=== PATIENT | male | born 1945 | race Caucasian/White ===

== ENCOUNTER → 2017-03-23 | Outpatient (REF) | payer MEDICARE ==
[~2017-03-23] MED LIST: ASPI81CH PO; COMBAER6 INH; COUM2.5T11 PO; DELTASONE PO; HCTZ OR; LATA5OPD OU; LISI10TA4 PO; LOSA100T36 PO; LYRI75CA PO; MOM30SS PO; MUCI120T PO; MYCOSTATIN SS; NICO21DI5 TD; NORV5TAB PO; PERC5TAB6 PO; PRAV10TA PO; PRAV1TAB39 PO; PROT1TAB2 PO; SITA50TAB PO; SYMB16INH INH; TIMO0.5S4 OU; TIOT18INH INH; TYLE325T5 PO; TYLE650T30 PO; XALA0.002 OD; XALA0.002 OU; XOPE1.252 IN; oxygen; ventolin inhaler INH
== END ==
LOC: M LAB REF 19:40
PROVIDERS: ATTEND Physician Assistant
DX: J02.9 Acute pharyngitis, unspecified (principal)

== ENCOUNTER 2017-11-20 10:14 | Inpatient (IN) | payer MEDICARE ==
[2017-11-20] MEDS: IPRATROPIUM 0.5MG/ALBUTEROL 2.5MG INH SOL UD 3ML (DUONEB)(J7620) NEB ×6 (10:57→23:29)
[2017-11-20 11:10] LABS: ABG BASE EXCESS 7.5 (-2.0-2.0); ABG HCO3 42.7 MEQ/L (22.0-26.0); ABG O2 SATURATION 95.3 % (95.0-99.0); ABG PARTIAL PRESSURE O2 86.8 mmHg (75.0-100.0); ABG STANDARD HCO3 31.2 MEQ/L (22.0-26.0); ABG TOTAL CO2 46.8 MEQ/L (23.0-31.0); BASO % 0.3 % (0.0-1.0); HEMATOCRIT 50.2 % (42.0-52.0); HEMOGLOBIN 14.6 g/dl (14.0-18.0); IMMATURE GRANULOCYTE # 0.1 10^3/uL (0-0); IMMATURE GRANULOCYTE % 0.5 % (0-0); LYMPH # 0.7 10^3/uL (1.5-4.5); LYMPH % 4.6 % (24.0-44.0); MEAN CORPUSCULAR HEMOGLOBIN 28.6 pg (27.0-33.0); MEAN CORPUSCULAR HGB CONC 29.1 g/dl (32.0-36.5); MEAN CORPUSCULAR VOLUME 98.2 fl (80.0-96.0); MONO # 1.4 10^3/uL (0.0-0.8); MONO % 9.4 % (0.0-5.0); NEUTROPHILS # 12.4 10^3/uL (1.8-7.7); NEUTROPHILS % 85.2 % (36.0-66.0); PLATELET COUNT, AUTOMATED 249 10^3/uL (150-450); RED BLOOD COUNT 5.11 10^6/uL (4.30-6.10); RED CELL DISTRIBUTION WIDTH 14.6 % (11.5-14.5); WHITE BLOOD COUNT 14.5 10^3/uL (4.0-10.0)
[2017-11-20 11:13] LABS: ABG PARTIAL PRESSURE CO2 135.2 mmHg (35.0-45.0); ABG pH (ARTERIAL) 7.117 UNITS (7.350-7.450)
[2017-11-20 11:35] LABS: LACTIC ACID SEPSIS PROTOCOL 1.1 MMOL/L (0.4-2.0)
[2017-11-20 11:36] LABS: NT-PRO BNP 221 PG/ML (<125)
[2017-11-20 11:36] LABS: ANION GAP 5 MEQ/L (8-16); BLOOD UREA NITROGEN 47 MG/DL (7-18); CALCIUM LEVEL 8.4 MG/DL (8.8-10.2); CARBON DIOXIDE LEVEL 40 MEQ/L (21-32); CHLORIDE LEVEL 97 MEQ/L (98-107); CPK CREATINE PHOSPHOKINASE 49 U/L (39-308); CREATININE FOR GFR 1.36 MG/DL (0.70-1.30); GLOMERULAR FILTRATION RATE 54.7 (>42); GLUCOSE, FASTING 150 MG/DL (83-110); POTASSIUM SERUM 3.5 MEQ/L (3.5-5.1); SODIUM LEVEL 142 MEQ/L (136-145); TROPONIN I < 0.02 NG/ML (< 0.10)
[2017-11-20 11:39] LABS: CK-MB VALUE MASS 4.1 NG/ML (0.0-3.6); MB/CK RELATIVE INDEX 8.36 (< OR =4)
[2017-11-20 12:39] LABS: ABG BASE EXCESS 6.2 (-2.0-2.0); ABG O2 SATURATION 93.1 % (95.0-99.0); ABG PARTIAL PRESSURE O2 69.4 mmHg (75.0-100.0); ABG STANDARD HCO3 29.9 MEQ/L (22.0-26.0); ABG TOTAL CO2 42.3 MEQ/L (23.0-31.0)
[2017-11-20 12:42] LABS: ABG pH (ARTERIAL) 7.184 UNITS (7.350-7.450)
[2017-11-20] MEDS: PANTOPRAZOLE 40MG INJ (PROTONIX) (C9113) IV (14:38)
[2017-11-20] MEDS: methylPREDNISolone INJ 125 MG/2 ML VIAL (J2930) IV ×2 (14:38→21:34)
[2017-11-20] MEDS: ENOXAPARIN 40 MG/0.4 ML SYRINGE (J1650) SC (14:39)
[2017-11-20] MEDS: AZITHROMYCIN INJ 500 MG, VIAL MATE ADAPTER 1 EACH in D5W 250 ML IV (14:39)
[2017-11-20 15:59] LABS: ABG BASE EXCESS 6.6 (-2.0-2.0); ABG HCO3 40.5 MEQ/L (22.0-26.0); ABG O2 SATURATION 99.1 % (95.0-99.0); ABG PARTIAL PRESSURE O2 161.9 mmHg (75.0-100.0); ABG STANDARD HCO3 30.5 MEQ/L (22.0-26.0); ABG TOTAL CO2 44.2 MEQ/L (23.0-31.0)
[2017-11-20 16:00] LABS: ABG pH (ARTERIAL) 7.146 UNITS (7.350-7.450)
[2017-11-20] MEDS: CEFTRIAXONE SOD 1 GM in APPROPRIATE DILUENT 1 EA IV (16:39)
[2017-11-20 17:29] LABS: ABG BASE EXCESS 4.4 (-2.0-2.0); ABG HCO3 35.8 MEQ/L (22.0-26.0); ABG O2 SATURATION 89.9 % (95.0-99.0); ABG PARTIAL PRESSURE O2 57.1 mmHg (75.0-100.0); ABG STANDARD HCO3 28.2 MEQ/L (22.0-26.0); ABG TOTAL CO2 38.6 MEQ/L (23.0-31.0)
[2017-11-20 17:30] LABS: ABG pH (ARTERIAL) 7.212 UNITS (7.350-7.450)
[2017-11-20 17:33] LABS: ABG PARTIAL PRESSURE CO2 91.1 mmHg (35.0-45.0)
[2017-11-20] MEDS: SODIUM CHLORIDE 0.9% 1000 ML IV (18:13)
[2017-11-20] MEDS: NS 500 ML IV (21:30)
[2017-11-20] MEDS: D5W/0.9% SODIUM CHLORIDE 1,000 ML IV (21:33)
[2017-11-20] MEDS: CHLORHEXIDINE ORAL RINSE 0.12%/15ML 120ML BOTTLE MT (21:35)
[2017-11-21] MEDS: IPRATROPIUM 0.5MG/ALBUTEROL 2.5MG INH SOL UD 3ML (DUONEB)(J7620) NEB ×6 (04:00→23:18)
[2017-11-21 05:19] LABS: BASO % 0.1 % (0.0-1.0); HEMATOCRIT 44.1 % (42.0-52.0); HEMOGLOBIN 13.5 g/dl (14.0-18.0); IMMATURE GRANULOCYTE % 0.3 % (0-0); LYMPH # 0.4 10^3/uL (1.5-4.5); LYMPH % 3.2 % (24.0-44.0); MEAN CORPUSCULAR HEMOGLOBIN 28.5 pg (27.0-33.0); MEAN CORPUSCULAR HGB CONC 30.6 g/dl (32.0-36.5); MEAN CORPUSCULAR VOLUME 93.2 fl (80.0-96.0); MONO # 0.9 10^3/uL (0.0-0.8); MONO % 7.4 % (0.0-5.0); NEUTROPHILS # 10.5 10^3/uL (1.8-7.7); PLATELET COUNT, AUTOMATED 247 10^3/uL (150-450); RED BLOOD COUNT 4.73 10^6/uL (4.30-6.10); RED CELL DISTRIBUTION WIDTH 14.6 % (11.5-14.5); WHITE BLOOD COUNT 11.8 10^3/uL (4.0-10.0)
[2017-11-21 05:44] LABS: ALBUMIN 2.5 GM/DL (3.2-5.2); ALBUMIN/GLOBULIN RATIO 0.61 (1.00-1.93); ALKALINE PHOSPHATASE 72 U/L (45-117); ALT/SGPT 14 U/L (12-78); ANION GAP 5 MEQ/L (8-16); AST/SGOT 8 U/L (7-37); BILIRUBIN,TOTAL 0.7 MG/DL (0.2-1.0); BLOOD UREA NITROGEN 66 MG/DL (7-18); CALCIUM LEVEL 8.8 MG/DL (8.8-10.2); CARBON DIOXIDE LEVEL 34 MEQ/L (21-32); CHLORIDE LEVEL 99 MEQ/L (98-107); CHOLESTEROL LEVEL 112 MG/DL (< 200); CPK CREATINE PHOSPHOKINASE 52 U/L (39-308); CREATININE FOR GFR 1.72 MG/DL (0.70-1.30); GLOMERULAR FILTRATION RATE 41.7 (>42); GLUCOSE, FASTING 228 MG/DL (83-110); LDH LACTATE DEHYDROGENASE 146 U/L (87-241); MAGNESIUM LEVEL 2.4 MG/DL (1.8-2.4); PHOSPHORUS LEVEL 2.5 MG/DL (2.5-4.9); POTASSIUM SERUM 3.6 MEQ/L (3.5-5.1); SODIUM LEVEL 138 MEQ/L (136-145); TOTAL PROTEIN 6.6 GM/DL (6.4-8.2); TRIGLYCERIDES LEVEL 63 MG/DL (<150)
[2017-11-21 06:07] LABS: ABG BASE EXCESS 4.1 (-2.0-2.0); ABG HCO3 31.1 MEQ/L (22.0-26.0); ABG O2 SATURATION 93.2 % (95.0-99.0); ABG PARTIAL PRESSURE CO2 56.2 mmHg (35.0-45.0); ABG PARTIAL PRESSURE O2 62.3 mmHg (75.0-100.0); ABG TOTAL CO2 32.8 MEQ/L (23.0-31.0); ABG pH (ARTERIAL) 7.361 UNITS (7.350-7.450)
[2017-11-21] MEDS: methylPREDNISolone INJ 125 MG/2 ML VIAL (J2930) IV ×3 (06:24→21:50)
[2017-11-21] MEDS: ENOXAPARIN 40 MG/0.4 ML SYRINGE (J1650) SC (08:11)
[2017-11-21] MEDS: PANTOPRAZOLE 40MG INJ (PROTONIX) (C9113) IV (08:11)
[2017-11-21] MEDS: CHLORHEXIDINE ORAL RINSE 0.12%/15ML 120ML BOTTLE MT ×2 (08:11→20:00)
[2017-11-21] MEDS: CEFTRIAXONE SOD 1 GM in APPROPRIATE DILUENT 1 EA IV (13:07)
[2017-11-21] MEDS: D5W/0.9% SODIUM CHLORIDE 1,000 ML IV (13:08)
[2017-11-21] MEDS: AZITHROMYCIN INJ 500 MG, VIAL MATE ADAPTER 1 EACH in D5W 250 ML IV (16:26)
[2017-11-22] MEDS: IPRATROPIUM 0.5MG/ALBUTEROL 2.5MG INH SOL UD 3ML (DUONEB)(J7620) NEB ×6 (03:52→23:32)
[2017-11-22 05:18] LABS: BASO % 0.1 % (0.0-1.0); HEMATOCRIT 44.9 % (42.0-52.0); HEMOGLOBIN 13.8 g/dl (14.0-18.0); IMMATURE GRANULOCYTE # 0.1 10^3/uL (0-0); IMMATURE GRANULOCYTE % 0.5 % (0-0); LYMPH # 0.5 10^3/uL (1.5-4.5); LYMPH % 3.4 % (24.0-44.0); MEAN CORPUSCULAR HEMOGLOBIN 28.6 pg (27.0-33.0); MEAN CORPUSCULAR HGB CONC 30.7 g/dl (32.0-36.5); MEAN CORPUSCULAR VOLUME 93.2 fl (80.0-96.0); MONO # 0.7 10^3/uL (0.0-0.8); PLATELET COUNT, AUTOMATED 282 10^3/uL (150-450); RED BLOOD COUNT 4.82 10^6/uL (4.30-6.10); RED CELL DISTRIBUTION WIDTH 14.9 % (11.5-14.5); WHITE BLOOD COUNT 14.3 10^3/uL (4.0-10.0)
[2017-11-22 05:36] LABS: ALBUMIN 2.4 GM/DL (3.2-5.2); ALBUMIN/GLOBULIN RATIO 0.57 (1.00-1.93); ALKALINE PHOSPHATASE 86 U/L (45-117); ALT/SGPT 14 U/L (12-78); ANION GAP 4 MEQ/L (8-16); AST/SGOT 13 U/L (7-37); BILIRUBIN,TOTAL 0.3 MG/DL (0.2-1.0); BLOOD UREA NITROGEN 66 MG/DL (7-18); CALCIUM LEVEL 8.8 MG/DL (8.8-10.2); CARBON DIOXIDE LEVEL 37 MEQ/L (21-32); CHLORIDE LEVEL 102 MEQ/L (98-107); CHOLESTEROL LEVEL 107 MG/DL (< 200); CPK CREATINE PHOSPHOKINASE 54 U/L (39-308); CREATININE FOR GFR 1.23 MG/DL (0.70-1.30); GLOMERULAR FILTRATION RATE > 60.0 (>42); GLUCOSE, FASTING 213 MG/DL (83-110); LDH LACTATE DEHYDROGENASE 172 U/L (87-241); PHOSPHORUS LEVEL 2.2 MG/DL (2.5-4.9); POTASSIUM SERUM 3.9 MEQ/L (3.5-5.1); SODIUM LEVEL 143 MEQ/L (136-145); TOTAL PROTEIN 6.6 GM/DL (6.4-8.2); TRIGLYCERIDES LEVEL 62 MG/DL (<150)
[2017-11-22] MEDS: methylPREDNISolone INJ 125 MG/2 ML VIAL (J2930) IV ×3 (05:54→21:30)
[2017-11-22 06:17] LABS: ABG HCO3 35.8 MEQ/L (22.0-26.0); ABG O2 SATURATION 90.5 % (95.0-99.0); ABG PARTIAL PRESSURE O2 58.4 mmHg (75.0-100.0); ABG STANDARD HCO3 31.6 MEQ/L (22.0-26.0); ABG TOTAL CO2 37.8 MEQ/L (23.0-31.0); ABG pH (ARTERIAL) 7.363 UNITS (7.350-7.450)
[2017-11-22 06:18] LABS: ABG PARTIAL PRESSURE CO2 64.4 mmHg (35.0-45.0)
[2017-11-22] MEDS: CHLORHEXIDINE ORAL RINSE 0.12%/15ML 120ML BOTTLE MT ×2 (08:38→21:29)
[2017-11-22] MEDS: ENOXAPARIN 40 MG/0.4 ML SYRINGE (J1650) SC (08:38)
[2017-11-22] MEDS: PANTOPRAZOLE 40MG INJ (PROTONIX) (C9113) IV (08:38)
[2017-11-22] MEDS: SYMBICORT 160/4.5MCG INHALER 6GM INH ×2 (09:00→19:52)
[2017-11-22] MEDS: ASPIRIN 81 MG ENTERIC TAB PO (11:59)
[2017-11-22] MEDS: CEFTRIAXONE SOD 1 GM in APPROPRIATE DILUENT 1 EA IV (15:52)
[2017-11-22] MEDS: AZITHROMYCIN INJ 500 MG, VIAL MATE ADAPTER 1 EACH in D5W 250 ML IV (15:53)
[2017-11-23] MEDS: IPRATROPIUM 0.5MG/ALBUTEROL 2.5MG INH SOL UD 3ML (DUONEB)(J7620) NEB ×6 (03:17→23:45)
[2017-11-23 05:02] LABS: BASO % 0.1 % (0.0-1.0); HEMOGLOBIN 14.3 g/dl (14.0-18.0); IMMATURE GRANULOCYTE # 0.1 10^3/uL (0-0); IMMATURE GRANULOCYTE % 0.6 % (0-0); LYMPH # 0.4 10^3/uL (1.5-4.5); LYMPH % 3.6 % (24.0-44.0); MEAN CORPUSCULAR HEMOGLOBIN 28.3 pg (27.0-33.0); MEAN CORPUSCULAR HGB CONC 29.8 g/dl (32.0-36.5); MEAN CORPUSCULAR VOLUME 94.9 fl (80.0-96.0); MONO # 0.6 10^3/uL (0.0-0.8); NEUTROPHILS # 9.2 10^3/uL (1.8-7.7); NEUTROPHILS % 89.7 % (36.0-66.0); PLATELET COUNT, AUTOMATED 274 10^3/uL (150-450); RED BLOOD COUNT 5.06 10^6/uL (4.30-6.10); RED CELL DISTRIBUTION WIDTH 15.1 % (11.5-14.5); WHITE BLOOD COUNT 10.2 10^3/uL (4.0-10.0)
[2017-11-23] MEDS: methylPREDNISolone INJ 125 MG/2 ML VIAL (J2930) IV ×2 (05:16→18:00)
[2017-11-23 05:24] LABS: ALBUMIN 2.6 GM/DL (3.2-5.2); ALBUMIN/GLOBULIN RATIO 0.59 (1.00-1.93); ALKALINE PHOSPHATASE 80 U/L (45-117); ALT/SGPT 15 U/L (12-78); ANION GAP 4 MEQ/L (8-16); AST/SGOT 8 U/L (7-37); BILIRUBIN,TOTAL 0.3 MG/DL (0.2-1.0); BLOOD UREA NITROGEN 69 MG/DL (7-18); CALCIUM LEVEL 8.9 MG/DL (8.8-10.2); CARBON DIOXIDE LEVEL 37 MEQ/L (21-32); CHLORIDE LEVEL 103 MEQ/L (98-107); CHOLESTEROL LEVEL 134 MG/DL (< 200); CPK CREATINE PHOSPHOKINASE 35 U/L (39-308); CREATININE FOR GFR 1.13 MG/DL (0.70-1.30); GLOMERULAR FILTRATION RATE > 60.0 (>42); GLUCOSE, FASTING 255 MG/DL (83-110); LDH LACTATE DEHYDROGENASE 177 U/L (87-241); PHOSPHORUS LEVEL 2.9 MG/DL (2.5-4.9); SODIUM LEVEL 144 MEQ/L (136-145); TRIGLYCERIDES LEVEL 76 MG/DL (<150)
[2017-11-23 05:40] LABS: ABG BASE EXCESS -1.9 (-2.0-2.0); ABG HCO3 26.6 MEQ/L (22.0-26.0); ABG O2 SATURATION 91.7 % (95.0-99.0); ABG PARTIAL PRESSURE O2 67.9 mmHg (75.0-100.0); ABG STANDARD HCO3 22.7 MEQ/L (22.0-26.0); ABG TOTAL CO2 28.5 MEQ/L (23.0-31.0); ABG pH (ARTERIAL) 7.251 UNITS (7.350-7.450)
[2017-11-23] MEDS: PANTOPRAZOLE 40MG TAB (PROTONIX) PO (08:31)
[2017-11-23] MEDS: ASPIRIN 81 MG ENTERIC TAB PO (08:31)
[2017-11-23] MEDS: CHLORHEXIDINE ORAL RINSE 0.12%/15ML 120ML BOTTLE MT ×2 (08:31→22:00)
[2017-11-23] MEDS: ENOXAPARIN 40 MG/0.4 ML SYRINGE (J1650) SC (08:32)
[2017-11-23] MEDS: SYMBICORT 160/4.5MCG INHALER 6GM INH ×2 (08:50→21:56)
[2017-11-23] MEDS: ALBUTEROL SULFATE 2.5 MG/0.5 ML INH NEB SOLN NEB (12:37)
[2017-11-23] MEDS: TIOTROPIUM INHALER/CAPSULE (SPIRIVA) INH (12:37)
[2017-11-23 12:43] LABS: ABG BASE EXCESS 6.7 (-2.0-2.0); ABG HCO3 37.3 MEQ/L (22.0-26.0); ABG PARTIAL PRESSURE O2 53.7 mmHg (75.0-100.0); ABG STANDARD HCO3 30.2 MEQ/L (22.0-26.0); ABG TOTAL CO2 39.8 MEQ/L (23.0-31.0); ABG pH (ARTERIAL) 7.271 UNITS (7.350-7.450)
[2017-11-23 12:45] LABS: ABG PARTIAL PRESSURE CO2 82.9 mmHg (35.0-45.0)
[2017-11-23] MEDS: CEFTRIAXONE SOD 1 GM in APPROPRIATE DILUENT 1 EA IV (13:41)
[2017-11-23] MEDS: AZITHROMYCIN INJ 500 MG, VIAL MATE ADAPTER 1 EACH in D5W 250 ML IV (15:06)
[2017-11-24] MEDS: IPRATROPIUM 0.5MG/ALBUTEROL 2.5MG INH SOL UD 3ML (DUONEB)(J7620) NEB ×6 (03:34→23:05)
[2017-11-24 04:32] LABS: BASO % 0.2 % (0.0-1.0); HEMATOCRIT 51.2 % (42.0-52.0); HEMOGLOBIN 15.1 g/dl (14.0-18.0); IMMATURE GRANULOCYTE # 0.2 10^3/uL (0-0); IMMATURE GRANULOCYTE % 1.8 % (0-0); LYMPH # 0.6 10^3/uL (1.5-4.5); LYMPH % 5.6 % (24.0-44.0); MEAN CORPUSCULAR HEMOGLOBIN 28.8 pg (27.0-33.0); MEAN CORPUSCULAR HGB CONC 29.5 g/dl (32.0-36.5); MEAN CORPUSCULAR VOLUME 97.5 fl (80.0-96.0); MONO # 0.9 10^3/uL (0.0-0.8); MONO % 8.4 % (0.0-5.0); NEUTROPHILS # 8.5 10^3/uL (1.8-7.7); PLATELET COUNT, AUTOMATED 271 10^3/uL (150-450); RED BLOOD COUNT 5.25 10^6/uL (4.30-6.10); RED CELL DISTRIBUTION WIDTH 15.1 % (11.5-14.5); WHITE BLOOD COUNT 10.1 10^3/uL (4.0-10.0)
[2017-11-24 04:41] LABS: ALBUMIN 2.6 GM/DL (3.2-5.2); ALBUMIN/GLOBULIN RATIO 0.59 (1.00-1.93); ALKALINE PHOSPHATASE 93 U/L (45-117); ALT/SGPT 50 U/L (12-78); AST/SGOT 34 U/L (7-37); BILIRUBIN,TOTAL 0.3 MG/DL (0.2-1.0); BLOOD UREA NITROGEN 67 MG/DL (7-18); CARBON DIOXIDE LEVEL 42 MEQ/L (21-32); CHLORIDE LEVEL 103 MEQ/L (98-107); CHOLESTEROL LEVEL 149 MG/DL (< 200); CPK CREATINE PHOSPHOKINASE 29 U/L (39-308); CREATININE FOR GFR 1.15 MG/DL (0.70-1.30); GLOMERULAR FILTRATION RATE > 60.0 (>42); GLUCOSE, FASTING 251 MG/DL (83-110); LDH LACTATE DEHYDROGENASE 236 U/L (87-241); POTASSIUM SERUM 4.9 MEQ/L (3.5-5.1); SODIUM LEVEL 144 MEQ/L (136-145); TRIGLYCERIDES LEVEL 99 MG/DL (<150)
[2017-11-24 05:17] LABS: ABG BASE EXCESS 6.7 (-2.0-2.0); ABG HCO3 32.7 MEQ/L (22.0-26.0); ABG O2 SATURATION 98.2 % (95.0-99.0); ABG PARTIAL PRESSURE O2 94.9 mmHg (75.0-100.0); ABG STANDARD HCO3 30.6 MEQ/L (22.0-26.0); ABG TOTAL CO2 34.3 MEQ/L (23.0-31.0); ABG pH (ARTERIAL) 7.417 UNITS (7.350-7.450)
[2017-11-24] MEDS: methylPREDNISolone INJ 125 MG/2 ML VIAL (J2930) IV (06:34)
[2017-11-24] MEDS: PANTOPRAZOLE 40MG TAB (PROTONIX) PO (08:37)
[2017-11-24] MEDS: ENOXAPARIN 40 MG/0.4 ML SYRINGE (J1650) SC (08:37)
[2017-11-24] MEDS: CHLORHEXIDINE ORAL RINSE 0.12%/15ML 120ML BOTTLE MT ×2 (08:38→22:00)
[2017-11-24] MEDS: ASPIRIN 81 MG ENTERIC TAB PO (08:38)
[2017-11-24] MEDS: TIOTROPIUM INHALER/CAPSULE (SPIRIVA) INH (09:15)
[2017-11-24] MEDS: SYMBICORT 160/4.5MCG INHALER 6GM INH ×2 (09:15→20:16)
[2017-11-24] MEDS: CEFTRIAXONE SOD 1 GM in APPROPRIATE DILUENT 1 EA IV (14:21)
[2017-11-24] MEDS: FUROSEMIDE 40 MG/4 ML VIAL (J1940) IV (14:21)
[2017-11-24] MEDS: AZITHROMYCIN INJ 500 MG, VIAL MATE ADAPTER 1 EACH in D5W 250 ML IV (14:21)
[2017-11-25] MEDS: BENZONATATE 100 MG CAP PO ×2 (00:12→08:48)
[2017-11-25] MEDS: IPRATROPIUM 0.5MG/ALBUTEROL 2.5MG INH SOL UD 3ML (DUONEB)(J7620) NEB ×6 (04:00→23:45)
[2017-11-25 04:24] LABS: BASO % 0.3 % (0.0-1.0); EOS % 0.1 % (0.0-3.0); HEMATOCRIT 50.2 % (42.0-52.0); HEMOGLOBIN 15.6 g/dl (14.0-18.0); IMMATURE GRANULOCYTE # 0.3 10^3/uL (0-0); IMMATURE GRANULOCYTE % 2.6 % (0-0); LYMPH # 1.3 10^3/uL (1.5-4.5); LYMPH % 10.2 % (24.0-44.0); MEAN CORPUSCULAR HEMOGLOBIN 28.6 pg (27.0-33.0); MEAN CORPUSCULAR HGB CONC 31.1 g/dl (32.0-36.5); MEAN CORPUSCULAR VOLUME 92.1 fl (80.0-96.0); MONO # 1.3 10^3/uL (0.0-0.8); MONO % 10.4 % (0.0-5.0); NEUTROPHILS # 9.7 10^3/uL (1.8-7.7); NEUTROPHILS % 76.4 % (36.0-66.0); PLATELET COUNT, AUTOMATED 268 10^3/uL (150-450); RED BLOOD COUNT 5.45 10^6/uL (4.30-6.10); RED CELL DISTRIBUTION WIDTH 14.8 % (11.5-14.5); WHITE BLOOD COUNT 12.6 10^3/uL (4.0-10.0)
[2017-11-25 04:40] LABS: ALBUMIN 2.5 GM/DL (3.2-5.2); ALBUMIN/GLOBULIN RATIO 0.64 (1.00-1.93); ALKALINE PHOSPHATASE 95 U/L (45-117); ALT/SGPT 53 U/L (12-78); ANION GAP 3 MEQ/L (8-16); AST/SGOT 24 U/L (7-37); BILIRUBIN,TOTAL 0.5 MG/DL (0.2-1.0); BLOOD UREA NITROGEN 59 MG/DL (7-18); CALCIUM LEVEL 8.7 MG/DL (8.8-10.2); CARBON DIOXIDE LEVEL 40 MEQ/L (21-32); CHLORIDE LEVEL 101 MEQ/L (98-107); CHOLESTEROL LEVEL 132 MG/DL (< 200); CPK CREATINE PHOSPHOKINASE 151 U/L (39-308); CREATININE FOR GFR 1.06 MG/DL (0.70-1.30); GLOMERULAR FILTRATION RATE > 60.0 (>42); GLUCOSE, FASTING 271 MG/DL (83-110); LDH LACTATE DEHYDROGENASE 222 U/L (87-241); PHOSPHORUS LEVEL 1.1 MG/DL (2.5-4.9); POTASSIUM SERUM 3.8 MEQ/L (3.5-5.1); SODIUM LEVEL 144 MEQ/L (136-145); TOTAL PROTEIN 6.4 GM/DL (6.4-8.2); TRIGLYCERIDES LEVEL 151 MG/DL (<150)
[2017-11-25 05:49] LABS: ABG BASE EXCESS 16.6 (-2.0-2.0); ABG HCO3 43.2 MEQ/L (22.0-26.0); ABG O2 SATURATION 93.7 % (95.0-99.0); ABG PARTIAL PRESSURE CO2 56.8 mmHg (35.0-45.0); ABG PARTIAL PRESSURE O2 60.3 mmHg (75.0-100.0); ABG STANDARD HCO3 40.7 MEQ/L (22.0-26.0); ABG TOTAL CO2 44.9 MEQ/L (23.0-31.0); ABG pH (ARTERIAL) 7.499 UNITS (7.350-7.450)
[2017-11-25] MEDS: SYMBICORT 160/4.5MCG INHALER 6GM INH ×2 (08:33→20:39)
[2017-11-25] MEDS: TIOTROPIUM INHALER/CAPSULE (SPIRIVA) INH (08:33)
[2017-11-25] MEDS: methylPREDNISolone INJ 125 MG/2 ML VIAL (J2930) IV (08:47)
[2017-11-25] MEDS: PANTOPRAZOLE 40MG TAB (PROTONIX) PO (08:47)
[2017-11-25] MEDS: ENOXAPARIN 40 MG/0.4 ML SYRINGE (J1650) SC (08:47)
[2017-11-25] MEDS: TIMOLOL MALEATE 0.5% OPHTH SOLN 5 ML OU (08:47)
[2017-11-25] MEDS: ASPIRIN 81 MG ENTERIC TAB PO (08:47)
[2017-11-25] MEDS: guaiFENesin ER 600 MG TAB PO ×2 (09:29→20:07)
[2017-11-25] MEDS: FUROSEMIDE 40 MG/4 ML VIAL (J1940) IV (09:29)
[2017-11-25 14:22] LABS: MAGNESIUM LEVEL 2.5 MG/DL (1.8-2.4)
[2017-11-25] MEDS: CEFTRIAXONE SOD 1 GM in APPROPRIATE DILUENT 1 EA IV (14:52)
[2017-11-25] MEDS: POTASSIUM PHOSPHATE INJ 20 MMOL in D5W 250 ML IV (15:29)
[2017-11-25] MEDS: AZITHROMYCIN 250 MG TAB PO (17:36)
[2017-11-25] MEDS: PRAVASTATIN 20 MG TAB PO (20:07)
[2017-11-25] MEDS: LATANOPROST 0.005% OPHTH SOLN 2.5 ML OU (20:08)
[2017-11-26] MEDS: IPRATROPIUM 0.5MG/ALBUTEROL 2.5MG INH SOL UD 3ML (DUONEB)(J7620) NEB ×4 (03:40→20:00)
[2017-11-26 04:20] LABS: HEMATOCRIT 49.4 % (42.0-52.0); HEMOGLOBIN 15.5 g/dl (14.0-18.0); MEAN CORPUSCULAR HEMOGLOBIN 28.8 pg (27.0-33.0); MEAN CORPUSCULAR HGB CONC 31.4 g/dl (32.0-36.5); MEAN CORPUSCULAR VOLUME 91.8 fl (80.0-96.0); PLATELET COUNT, AUTOMATED 258 10^3/uL (150-450); RED BLOOD COUNT 5.38 10^6/uL (4.30-6.10); RED CELL DISTRIBUTION WIDTH 15.1 % (11.5-14.5)
[2017-11-26] MEDS: BENZONATATE 100 MG CAP PO (04:33)
[2017-11-26 04:43] LABS: ALBUMIN 2.5 GM/DL (3.2-5.2); ANION GAP 3 MEQ/L (8-16); BLOOD UREA NITROGEN 58 MG/DL (7-18); CALCIUM LEVEL 8.4 MG/DL (8.8-10.2); CARBON DIOXIDE LEVEL 42 MEQ/L (21-32); CHLORIDE LEVEL 100 MEQ/L (98-107); CREATININE FOR GFR 0.98 MG/DL (0.70-1.30); GLOMERULAR FILTRATION RATE > 60.0 (>42); GLUCOSE, FASTING 223 MG/DL (83-110); MAGNESIUM LEVEL 2.4 MG/DL (1.8-2.4); PHOSPHORUS LEVEL 3.2 MG/DL (2.5-4.9); POTASSIUM SERUM 4.2 MEQ/L (3.5-5.1); SODIUM LEVEL 145 MEQ/L (136-145)
[2017-11-26] MEDS: ENOXAPARIN 40 MG/0.4 ML SYRINGE (J1650) SC (08:52)
[2017-11-26] MEDS: guaiFENesin ER 600 MG TAB PO ×2 (08:52→20:04)
[2017-11-26] MEDS: methylPREDNISolone INJ 125 MG/2 ML VIAL (J2930) IV (08:52)
[2017-11-26] MEDS: PANTOPRAZOLE 40MG TAB (PROTONIX) PO (08:52)
[2017-11-26] MEDS: ASPIRIN 81 MG ENTERIC TAB PO (08:52)
[2017-11-26] MEDS: TIMOLOL MALEATE 0.5% OPHTH SOLN 5 ML OU (08:53)
[2017-11-26] MEDS: SYMBICORT 160/4.5MCG INHALER 6GM INH ×2 (10:21→20:09)
[2017-11-26] MEDS: TIOTROPIUM INHALER/CAPSULE (SPIRIVA) INH (10:22)
[2017-11-26] MEDS: CEFTRIAXONE SOD 1 GM in APPROPRIATE DILUENT 1 EA IV (13:50)
[2017-11-26] MEDS: LevoFLOXacin 500 MG TABLET PO (15:10)
[2017-11-26] MEDS: FUROSEMIDE 40 MG/4 ML VIAL (J1940) IV (16:02)
[2017-11-26] MEDS: LATANOPROST 0.005% OPHTH SOLN 2.5 ML OU (20:04)
[2017-11-26] MEDS: PRAVASTATIN 20 MG TAB PO (20:04)
[2017-11-27] MEDS: LevoFLOXacin 500 MG TABLET PO (05:10)
[2017-11-27 06:51] LABS: CHLORIDE LEVEL 97 MEQ/L (98-107); POTASSIUM SERUM 4.1 MEQ/L (3.5-5.1); SODIUM LEVEL 143 MEQ/L (136-145)
[2017-11-27 06:54] LABS: ANION GAP 5 MEQ/L (8-16); BLOOD UREA NITROGEN 52 MG/DL (7-18); CALCIUM LEVEL 8.4 MG/DL (8.8-10.2); CARBON DIOXIDE LEVEL 41 MEQ/L (21-32); MAGNESIUM LEVEL 2.4 MG/DL (1.8-2.4)
[2017-11-27 06:55] LABS: ALBUMIN 2.6 GM/DL (3.2-5.2); GLUCOSE, FASTING 211 MG/DL (83-110)
[2017-11-27 06:58] LABS: CREATININE FOR GFR 0.83 MG/DL (0.70-1.30); GLOMERULAR FILTRATION RATE > 60.0 (>42); PHOSPHORUS LEVEL 3.1 MG/DL (2.5-4.9)
[2017-11-27] MEDS: IPRATROPIUM 0.5MG/ALBUTEROL 2.5MG INH SOL UD 3ML (DUONEB)(J7620) NEB ×4 (08:00→20:00)
[2017-11-27] MEDS: ENOXAPARIN 40 MG/0.4 ML SYRINGE (J1650) SC (08:24)
[2017-11-27] MEDS: PANTOPRAZOLE 40MG TAB (PROTONIX) PO (08:25)
[2017-11-27] MEDS: ASPIRIN 81 MG ENTERIC TAB PO (08:25)
[2017-11-27] MEDS: guaiFENesin ER 600 MG TAB PO ×2 (08:25→21:02)
[2017-11-27] MEDS: methylPREDNISolone INJ 125 MG/2 ML VIAL (J2930) IV (08:25)
[2017-11-27] MEDS: FUROSEMIDE 40 MG/4 ML VIAL (J1940) IV ×2 (08:25→17:23)
[2017-11-27] MEDS: TIMOLOL MALEATE 0.5% OPHTH SOLN 5 ML OU (08:26)
[2017-11-27] MEDS: TIOTROPIUM INHALER/CAPSULE (SPIRIVA) INH (08:45)
[2017-11-27] MEDS: SYMBICORT 160/4.5MCG INHALER 6GM INH ×2 (08:45→20:03)
[2017-11-27] MEDS: CARBAMIDE PEROXIDE 6.5% OTIC SOLN 15ML AD ×2 (12:21→21:01)
[2017-11-27] MEDS: LATANOPROST 0.005% OPHTH SOLN 2.5 ML OU (21:01)
[2017-11-27] MEDS: PRAVASTATIN 20 MG TAB PO (21:02)
[2017-11-28] MEDS: LevoFLOXacin 500 MG TABLET PO (05:21)
[2017-11-28] MEDS: TIOTROPIUM INHALER/CAPSULE (SPIRIVA) INH (06:54)
[2017-11-28] MEDS: SYMBICORT 160/4.5MCG INHALER 6GM INH ×2 (06:54→23:01)
[2017-11-28 07:09] LABS: ALBUMIN 2.7 GM/DL (3.2-5.2); ANION GAP 4 MEQ/L (8-16); BLOOD UREA NITROGEN 60 MG/DL (7-18); CARBON DIOXIDE LEVEL 41 MEQ/L (21-32); CHLORIDE LEVEL 94 MEQ/L (98-107); CREATININE FOR GFR 1.04 MG/DL (0.70-1.30); GLOMERULAR FILTRATION RATE > 60.0 (>42); GLUCOSE, FASTING 224 MG/DL (83-110); MAGNESIUM LEVEL 2.4 MG/DL (1.8-2.4); PHOSPHORUS LEVEL 3.4 MG/DL (2.5-4.9); POTASSIUM SERUM 3.8 MEQ/L (3.5-5.1); SODIUM LEVEL 139 MEQ/L (136-145)
[2017-11-28] MEDS: IPRATROPIUM 0.5MG/ALBUTEROL 2.5MG INH SOL UD 3ML (DUONEB)(J7620) NEB ×4 (08:00→23:01)
[2017-11-28] MEDS: methylPREDNISolone INJ 125 MG/2 ML VIAL (J2930) IV (09:11)
[2017-11-28] MEDS: ASPIRIN 81 MG ENTERIC TAB PO (09:11)
[2017-11-28] MEDS: guaiFENesin ER 600 MG TAB PO ×2 (09:11→21:39)
[2017-11-28] MEDS: ENOXAPARIN 40 MG/0.4 ML SYRINGE (J1650) SC (09:11)
[2017-11-28] MEDS: PANTOPRAZOLE 40MG TAB (PROTONIX) PO (09:11)
[2017-11-28] MEDS: CARBAMIDE PEROXIDE 6.5% OTIC SOLN 15ML AD ×2 (09:12→21:44)
[2017-11-28] MEDS: TIMOLOL MALEATE 0.5% OPHTH SOLN 5 ML OU (09:12)
[2017-11-28] MEDS: FUROSEMIDE 40 MG/4 ML VIAL (J1940) IV ×2 (09:26→17:38)
[2017-11-28 10:08] LABS: HEMATOCRIT 52.6 % (42.0-52.0); HEMOGLOBIN 16.5 g/dl (14.0-18.0); MEAN CORPUSCULAR HEMOGLOBIN 28.6 pg (27.0-33.0); MEAN CORPUSCULAR HGB CONC 31.4 g/dl (32.0-36.5); MEAN CORPUSCULAR VOLUME 91.2 fl (80.0-96.0); PLATELET COUNT, AUTOMATED 272 10^3/uL (150-450); RED BLOOD COUNT 5.77 10^6/uL (4.30-6.10); RED CELL DISTRIBUTION WIDTH 15.2 % (11.5-14.5); WHITE BLOOD COUNT 14.3 10^3/uL (4.0-10.0)
[2017-11-28] MEDS: SODIUM CHLORIDE NASAL 0.65% SPRAY BTL (OCEAN) ×2 (17:40→21:44)
[2017-11-28] MEDS: PRAVASTATIN 20 MG TAB PO (21:39)
[2017-11-28] MEDS: APIXABAN 5 MG TAB (ELIQUIS) PO (21:39)
[2017-11-28] MEDS: METOPROLOL TART 25 MG TABLET PO (21:42)
[2017-11-28] MEDS: LATANOPROST 0.005% OPHTH SOLN 2.5 ML OU (21:46)
[2017-11-29 06:22] LABS: BASO # 0.1 10^3/uL (0.0-0.2); BASO % 0.4 % (0.0-1.0); EOS # 0.1 10^3/uL (0.0-0.50); EOS % 0.4 % (0.0-3.0); HEMATOCRIT 49.1 % (42.0-52.0); HEMOGLOBIN 15.3 g/dl (14.0-18.0); IMMATURE GRANULOCYTE # 0.4 10^3/uL (0-0); IMMATURE GRANULOCYTE % 2.6 % (0-0); LYMPH # 1.9 10^3/uL (1.5-4.5); LYMPH % 13.4 % (24.0-44.0); MEAN CORPUSCULAR HEMOGLOBIN 28.2 pg (27.0-33.0); MEAN CORPUSCULAR HGB CONC 31.2 g/dl (32.0-36.5); MEAN CORPUSCULAR VOLUME 90.6 fl (80.0-96.0); MONO # 0.8 10^3/uL (0.0-0.8); MONO % 5.9 % (0.0-5.0); NEUTROPHILS # 10.9 10^3/uL (1.8-7.7); NEUTROPHILS % 77.3 % (36.0-66.0); PLATELET COUNT, AUTOMATED 246 10^3/uL (150-450); RED BLOOD COUNT 5.42 10^6/uL (4.30-6.10); WHITE BLOOD COUNT 14.1 10^3/uL (4.0-10.0)
[2017-11-29 06:44] LABS: ALBUMIN 2.7 GM/DL (3.2-5.2); ALBUMIN/GLOBULIN RATIO 0.73 (1.00-1.93); ALKALINE PHOSPHATASE 80 U/L (45-117); ALT/SGPT 31 U/L (12-78); AST/SGOT 17 U/L (7-37); BILIRUBIN,TOTAL 0.6 MG/DL (0.2-1.0); BLOOD UREA NITROGEN 58 MG/DL (7-18); CALCIUM LEVEL 8.5 MG/DL (8.8-10.2); CHLORIDE LEVEL 94 MEQ/L (98-107); CREATININE FOR GFR 1.17 MG/DL (0.70-1.30); GLOMERULAR FILTRATION RATE > 60.0 (>42); GLUCOSE, FASTING 242 MG/DL (83-110); MAGNESIUM LEVEL 2.2 MG/DL (1.8-2.4); POTASSIUM SERUM 4.1 MEQ/L (3.5-5.1); SODIUM LEVEL 140 MEQ/L (136-145); TOTAL PROTEIN 6.4 GM/DL (6.4-8.2)
[2017-11-29 06:56] LABS: ANION GAP 1 MEQ/L (8-16)
[2017-11-29] MEDS: IPRATROPIUM 0.5MG/ALBUTEROL 2.5MG INH SOL UD 3ML (DUONEB)(J7620) NEB ×4 (08:00→21:06)
[2017-11-29] MEDS: SYMBICORT 160/4.5MCG INHALER 6GM INH ×2 (08:06→21:05)
[2017-11-29] MEDS: TIOTROPIUM INHALER/CAPSULE (SPIRIVA) INH (08:06)
[2017-11-29] MEDS: guaiFENesin ER 600 MG TAB PO ×2 (10:19→20:27)
[2017-11-29] MEDS: FUROSEMIDE 40 MG/4 ML VIAL (J1940) IV ×2 (10:20→17:11)
[2017-11-29] MEDS: PANTOPRAZOLE 40MG TAB (PROTONIX) PO (10:20)
[2017-11-29] MEDS: ASPIRIN 81 MG ENTERIC TAB PO (10:20)
[2017-11-29] MEDS: methylPREDNISolone INJ 125 MG/2 ML VIAL (J2930) IV (10:20)
[2017-11-29] MEDS: APIXABAN 5 MG TAB (ELIQUIS) PO ×2 (10:20→20:27)
[2017-11-29] MEDS: BRIMONIDINE 0.1% OPHTH SOLN 5 ML OU ×3 (10:21→21:59)
[2017-11-29] MEDS: CARBAMIDE PEROXIDE 6.5% OTIC SOLN 15ML AD ×2 (10:22→20:27)
[2017-11-29] MEDS: SODIUM CHLORIDE NASAL 0.65% SPRAY BTL (OCEAN) (10:22)
[2017-11-29] MEDS: LATANOPROST 0.005% OPHTH SOLN 2.5 ML OU (20:27)
[2017-11-29] MEDS: PRAVASTATIN 20 MG TAB PO (20:27)
[2017-11-30 06:56] LABS: BASO % 0.2 % (0.0-1.0); EOS % 0.1 % (0.0-3.0); HEMATOCRIT 46.4 % (42.0-52.0); HEMOGLOBIN 14.7 g/dl (14.0-18.0); IMMATURE GRANULOCYTE # 0.2 10^3/uL (0-0); IMMATURE GRANULOCYTE % 1.2 % (0-0); LYMPH # 1.3 10^3/uL (1.5-4.5); MEAN CORPUSCULAR HEMOGLOBIN 28.5 pg (27.0-33.0); MEAN CORPUSCULAR HGB CONC 31.7 g/dl (32.0-36.5); MEAN CORPUSCULAR VOLUME 90.1 fl (80.0-96.0); MONO # 0.9 10^3/uL (0.0-0.8); MONO % 5.4 % (0.0-5.0); NEUTROPHILS # 13.7 10^3/uL (1.8-7.7); NEUTROPHILS % 85.1 % (36.0-66.0); PLATELET COUNT, AUTOMATED 232 10^3/uL (150-450); RED BLOOD COUNT 5.15 10^6/uL (4.30-6.10); RED CELL DISTRIBUTION WIDTH 14.8 % (11.5-14.5); WHITE BLOOD COUNT 16.2 10^3/uL (4.0-10.0)
[2017-11-30 07:09] LABS: ALBUMIN 2.7 GM/DL (3.2-5.2); ALBUMIN/GLOBULIN RATIO 0.82 (1.00-1.93); ALKALINE PHOSPHATASE 81 U/L (45-117); ALT/SGPT 30 U/L (12-78); ANION GAP 5 MEQ/L (8-16); AST/SGOT 14 U/L (7-37); BILIRUBIN,TOTAL 0.6 MG/DL (0.2-1.0); BLOOD UREA NITROGEN 55 MG/DL (7-18); CALCIUM LEVEL 8.5 MG/DL (8.8-10.2); CARBON DIOXIDE LEVEL 40 MEQ/L (21-32); CHLORIDE LEVEL 94 MEQ/L (98-107); CREATININE FOR GFR 0.98 MG/DL (0.70-1.30); GLOMERULAR FILTRATION RATE > 60.0 (>42); GLUCOSE, FASTING 278 MG/DL (83-110); MAGNESIUM LEVEL 2.3 MG/DL (1.8-2.4); POTASSIUM SERUM 3.7 MEQ/L (3.5-5.1); SODIUM LEVEL 139 MEQ/L (136-145)
[2017-11-30] MEDS: TIOTROPIUM INHALER/CAPSULE (SPIRIVA) INH (07:41)
[2017-11-30] MEDS: IPRATROPIUM 0.5MG/ALBUTEROL 2.5MG INH SOL UD 3ML (DUONEB)(J7620) NEB ×4 (07:42→20:00)
[2017-11-30] MEDS: SYMBICORT 160/4.5MCG INHALER 6GM INH ×2 (07:42→20:22)
[2017-11-30] MEDS: FUROSEMIDE 40 MG/4 ML VIAL (J1940) IV (09:49)
[2017-11-30] MEDS: APIXABAN 5 MG TAB (ELIQUIS) PO ×2 (09:49→21:23)
[2017-11-30] MEDS: ASPIRIN 81 MG ENTERIC TAB PO (09:49)
[2017-11-30] MEDS: PANTOPRAZOLE 40MG TAB (PROTONIX) PO (09:49)
[2017-11-30] MEDS: guaiFENesin ER 600 MG TAB PO ×2 (09:49→21:23)
[2017-11-30] MEDS: CARBAMIDE PEROXIDE 6.5% OTIC SOLN 15ML AD ×2 (09:49→21:23)
[2017-11-30] MEDS: predniSONE 50 MG TAB PO (09:49)
[2017-11-30] MEDS: BRIMONIDINE 0.1% OPHTH SOLN 5 ML OU ×3 (09:50→21:23)
[2017-11-30] MEDS: SODIUM CHLORIDE NASAL 0.65% SPRAY BTL (OCEAN) ×2 (09:50→16:18)
[2017-11-30] MEDS: FUROSEMIDE 40 MG TAB PO (16:17)
[2017-11-30] MEDS: PRAVASTATIN 20 MG TAB PO (21:23)
[2017-11-30] MEDS: LATANOPROST 0.005% OPHTH SOLN 2.5 ML OU (21:24)
[2017-12-01 06:14] LABS: BASO % 0.1 % (0.0-1.0); EOS % 0.1 % (0.0-3.0); HEMOGLOBIN 14.6 g/dl (14.0-18.0); IMMATURE GRANULOCYTE # 0.2 10^3/uL (0-0); IMMATURE GRANULOCYTE % 1.3 % (0-0); LYMPH # 1.9 10^3/uL (1.5-4.5); LYMPH % 12.4 % (24.0-44.0); MEAN CORPUSCULAR HEMOGLOBIN 28.5 pg (27.0-33.0); MEAN CORPUSCULAR HGB CONC 32.4 g/dl (32.0-36.5); MEAN CORPUSCULAR VOLUME 87.9 fl (80.0-96.0); MONO # 1.1 10^3/uL (0.0-0.8); NEUTROPHILS # 11.8 10^3/uL (1.8-7.7); NEUTROPHILS % 79.1 % (36.0-66.0); PLATELET COUNT, AUTOMATED 224 10^3/uL (150-450); RED BLOOD COUNT 5.12 10^6/uL (4.30-6.10); RED CELL DISTRIBUTION WIDTH 14.6 % (11.5-14.5); WHITE BLOOD COUNT 14.9 10^3/uL (4.0-10.0)
[2017-12-01 06:37] LABS: ALBUMIN 2.6 GM/DL (3.2-5.2); ALBUMIN/GLOBULIN RATIO 0.79 (1.00-1.93); ALKALINE PHOSPHATASE 75 U/L (45-117); ALT/SGPT 30 U/L (12-78); ANION GAP 6 MEQ/L (8-16); AST/SGOT 13 U/L (7-37); BILIRUBIN,TOTAL 0.7 MG/DL (0.2-1.0); BLOOD UREA NITROGEN 51 MG/DL (7-18); CALCIUM LEVEL 8.5 MG/DL (8.8-10.2); CARBON DIOXIDE LEVEL 37 MEQ/L (21-32); CHLORIDE LEVEL 94 MEQ/L (98-107); CREATININE FOR GFR 0.95 MG/DL (0.70-1.30); GLOMERULAR FILTRATION RATE > 60.0 (>42); GLUCOSE, FASTING 264 MG/DL (83-110); MAGNESIUM LEVEL 2.2 MG/DL (1.8-2.4); POTASSIUM SERUM 3.7 MEQ/L (3.5-5.1); SODIUM LEVEL 137 MEQ/L (136-145); TOTAL PROTEIN 5.9 GM/DL (6.4-8.2)
[2017-12-01] MEDS ORDERED: GLUCOSE 4 GM CHEW TABLET PO (07:30)
[2017-12-01] MEDS ORDERED: DEXTROSE 50% 50 ML SYRINGE IV (07:30)
[2017-12-01] MEDS ORDERED: GLUCAGON FOR INJ 1 MG VIAL (J1610) SC (07:30)
[2017-12-01] MEDS: TIOTROPIUM INHALER/CAPSULE (SPIRIVA) INH (07:39)
[2017-12-01] MEDS: IPRATROPIUM 0.5MG/ALBUTEROL 2.5MG INH SOL UD 3ML (DUONEB)(J7620) NEB ×4 (07:39→20:00)
[2017-12-01] MEDS: SYMBICORT 160/4.5MCG INHALER 6GM INH ×2 (07:39→21:19)
[2017-12-01 08:29] LABS: ESTIMATED AVERAGE GLUCOSE 174 MG/DL (60-110); HEMOGLOBIN A1c 7.7 %
[2017-12-01] MEDS: PANTOPRAZOLE 40MG TAB (PROTONIX) PO (09:28)
[2017-12-01] MEDS: guaiFENesin ER 600 MG TAB PO ×2 (09:28→21:01)
[2017-12-01] MEDS: FUROSEMIDE 40 MG TAB PO ×2 (09:28→17:42)
[2017-12-01] MEDS: predniSONE 50 MG TAB PO (09:28)
[2017-12-01] MEDS: APIXABAN 5 MG TAB (ELIQUIS) PO ×2 (09:28→21:01)
[2017-12-01] MEDS: ASPIRIN 81 MG ENTERIC TAB PO (09:28)
[2017-12-01] MEDS: BRIMONIDINE 0.1% OPHTH SOLN 5 ML OU ×3 (09:29→21:02)
[2017-12-01] MEDS: HumaLOG INSULIN (NovoLOG) PER UNIT SC ×4 (09:29→21:00)
[2017-12-01 11:59] LABS: BEDSIDE GLUCOSE 236 MG/DL (83-110)
[2017-12-01 17:17] LABS: BEDSIDE GLUCOSE 289 MG/DL (83-110)
[2017-12-01] MEDS: PRAVASTATIN 20 MG TAB PO (21:01)
[2017-12-01] MEDS: LATANOPROST 0.005% OPHTH SOLN 2.5 ML OU (21:01)
[2017-12-01 21:17] LABS: BEDSIDE GLUCOSE 364 MG/DL (83-110)
[2017-12-02 06:13] LABS: BASO % 0.1 % (0.0-1.0); EOS % 0.1 % (0.0-3.0); HEMOGLOBIN 14.6 g/dl (14.0-18.0); IMMATURE GRANULOCYTE # 0.2 10^3/uL (0-0); IMMATURE GRANULOCYTE % 1.3 % (0-0); LYMPH # 1.7 10^3/uL (1.5-4.5); LYMPH % 10.7 % (24.0-44.0); MEAN CORPUSCULAR HEMOGLOBIN 28.3 pg (27.0-33.0); MEAN CORPUSCULAR HGB CONC 32.4 g/dl (32.0-36.5); MEAN CORPUSCULAR VOLUME 87.2 fl (80.0-96.0); MONO # 1.1 10^3/uL (0.0-0.8); MONO % 6.6 % (0.0-5.0); NEUTROPHILS # 12.9 10^3/uL (1.8-7.7); NEUTROPHILS % 81.2 % (36.0-66.0); PLATELET COUNT, AUTOMATED 264 10^3/uL (150-450); RED BLOOD COUNT 5.16 10^6/uL (4.30-6.10); RED CELL DISTRIBUTION WIDTH 14.6 % (11.5-14.5); WHITE BLOOD COUNT 15.9 10^3/uL (4.0-10.0)
[2017-12-02 06:21] LABS: BEDSIDE GLUCOSE 215 MG/DL (83-110)
[2017-12-02 06:34] LABS: ALBUMIN 2.7 GM/DL (3.2-5.2); ALBUMIN/GLOBULIN RATIO 0.82 (1.00-1.93); ALKALINE PHOSPHATASE 70 U/L (45-117); ALT/SGPT 28 U/L (12-78); ANION GAP 3 MEQ/L (8-16); AST/SGOT 16 U/L (7-37); BILIRUBIN,TOTAL 0.9 MG/DL (0.2-1.0); BLOOD UREA NITROGEN 44 MG/DL (7-18); CALCIUM LEVEL 8.5 MG/DL (8.8-10.2); CARBON DIOXIDE LEVEL 40 MEQ/L (21-32); CHLORIDE LEVEL 93 MEQ/L (98-107); CREATININE FOR GFR 0.89 MG/DL (0.70-1.30); GLOMERULAR FILTRATION RATE > 60.0 (>42); GLUCOSE, FASTING 235 MG/DL (83-110); MAGNESIUM LEVEL 2.2 MG/DL (1.8-2.4); POTASSIUM SERUM 3.8 MEQ/L (3.5-5.1); SODIUM LEVEL 136 MEQ/L (136-145)
[2017-12-02] MEDS: HumaLOG INSULIN (NovoLOG) PER UNIT SC ×4 (07:30→21:21)
[2017-12-02] MEDS: SYMBICORT 160/4.5MCG INHALER 6GM INH ×2 (07:37→20:28)
[2017-12-02] MEDS: IPRATROPIUM 0.5MG/ALBUTEROL 2.5MG INH SOL UD 3ML (DUONEB)(J7620) NEB ×4 (07:37→20:00)
[2017-12-02] MEDS: TIOTROPIUM INHALER/CAPSULE (SPIRIVA) INH (07:37)
[2017-12-02] MEDS: guaiFENesin ER 600 MG TAB PO ×2 (07:54→21:19)
[2017-12-02] MEDS: predniSONE 50 MG TAB PO (07:54)
[2017-12-02] MEDS: APIXABAN 5 MG TAB (ELIQUIS) PO ×2 (07:54→21:19)
[2017-12-02] MEDS: FUROSEMIDE 40 MG TAB PO ×2 (07:54→16:53)
[2017-12-02] MEDS: ASPIRIN 81 MG ENTERIC TAB PO (07:54)
[2017-12-02] MEDS: PANTOPRAZOLE 40MG TAB (PROTONIX) PO (07:54)
[2017-12-02] MEDS: BRIMONIDINE 0.1% OPHTH SOLN 5 ML OU ×3 (07:55→21:22)
[2017-12-02] MEDS: MINERAL OIL 473 ML BTL AU ×2 (09:00→21:22)
[2017-12-02 12:12] LABS: BEDSIDE GLUCOSE 236 MG/DL (83-110)
[2017-12-02] MEDS: FUROSEMIDE 20 MG/2 ML VIAL (J1940) IV (13:15)
[2017-12-02 20:30] LABS: BEDSIDE GLUCOSE 435 MG/DL (83-110)
[2017-12-02] MEDS: PRAVASTATIN 20 MG TAB PO (21:19)
[2017-12-02] MEDS: LATANOPROST 0.005% OPHTH SOLN 2.5 ML OU (21:22)
[2017-12-03 07:04] LABS: BEDSIDE GLUCOSE 306 MG/DL (83-110)
[2017-12-03] MEDS: TIOTROPIUM INHALER/CAPSULE (SPIRIVA) INH (07:07)
[2017-12-03] MEDS: IPRATROPIUM 0.5MG/ALBUTEROL 2.5MG INH SOL UD 3ML (DUONEB)(J7620) NEB ×4 (07:08→20:00)
[2017-12-03] MEDS: SYMBICORT 160/4.5MCG INHALER 6GM INH ×2 (07:08→20:37)
[2017-12-03 07:40] LABS: BASO % 0.2 % (0.0-1.0); EOS % 0.1 % (0.0-3.0); HEMATOCRIT 47.9 % (42.0-52.0); HEMOGLOBIN 15.4 g/dl (14.0-18.0); IMMATURE GRANULOCYTE # 0.2 10^3/uL (0-0); IMMATURE GRANULOCYTE % 1.4 % (0-0); LYMPH # 2.3 10^3/uL (1.5-4.5); LYMPH % 15.1 % (24.0-44.0); MEAN CORPUSCULAR HEMOGLOBIN 28.5 pg (27.0-33.0); MEAN CORPUSCULAR HGB CONC 32.2 g/dl (32.0-36.5); MEAN CORPUSCULAR VOLUME 88.5 fl (80.0-96.0); MONO % 6.8 % (0.0-5.0); NEUTROPHILS # 11.4 10^3/uL (1.8-7.7); NEUTROPHILS % 76.4 % (36.0-66.0); PLATELET COUNT, AUTOMATED 295 10^3/uL (150-450); RED BLOOD COUNT 5.41 10^6/uL (4.30-6.10); RED CELL DISTRIBUTION WIDTH 14.8 % (11.5-14.5); WHITE BLOOD COUNT 14.9 10^3/uL (4.0-10.0)
[2017-12-03 08:19] LABS: ALBUMIN/GLOBULIN RATIO 0.88 (1.00-1.93); ALKALINE PHOSPHATASE 88 U/L (45-117); ALT/SGPT 32 U/L (12-78); ANION GAP 6 MEQ/L (8-16); AST/SGOT 17 U/L (7-37); BILIRUBIN,TOTAL 0.9 MG/DL (0.2-1.0); BLOOD UREA NITROGEN 43 MG/DL (7-18); CALCIUM LEVEL 8.6 MG/DL (8.8-10.2); CARBON DIOXIDE LEVEL 37 MEQ/L (21-32); CHLORIDE LEVEL 96 MEQ/L (98-107); CREATININE FOR GFR 0.97 MG/DL (0.70-1.30); GLOMERULAR FILTRATION RATE > 60.0 (>42); GLUCOSE, FASTING 199 MG/DL (83-110); MAGNESIUM LEVEL 2.1 MG/DL (1.8-2.4); POTASSIUM SERUM 3.5 MEQ/L (3.5-5.1); SODIUM LEVEL 139 MEQ/L (136-145); TOTAL PROTEIN 6.4 GM/DL (6.4-8.2)
[2017-12-03] MEDS: FUROSEMIDE 100 MG/10 ML VIAL (J1940) IV ×2 (09:01→17:18)
[2017-12-03] MEDS: HumaLOG INSULIN (NovoLOG) PER UNIT SC ×4 (09:02→20:30)
[2017-12-03] MEDS: ASPIRIN 81 MG ENTERIC TAB PO (09:02)
[2017-12-03] MEDS: APIXABAN 5 MG TAB (ELIQUIS) PO ×2 (09:02→20:28)
[2017-12-03] MEDS: PANTOPRAZOLE 40MG TAB (PROTONIX) PO (09:02)
[2017-12-03] MEDS: MINERAL OIL 473 ML BTL AU ×2 (09:03→20:29)
[2017-12-03] MEDS: BRIMONIDINE 0.1% OPHTH SOLN 5 ML OU ×3 (09:03→20:29)
[2017-12-03] MEDS: guaiFENesin ER 600 MG TAB PO ×2 (09:03→20:28)
[2017-12-03] MEDS: predniSONE 10 MG TAB PO (09:03)
[2017-12-03 12:23] LABS: BEDSIDE GLUCOSE 241 MG/DL (83-110)
[2017-12-03 17:07] LABS: BEDSIDE GLUCOSE 283 MG/DL (83-110)
[2017-12-03 20:18] LABS: BEDSIDE GLUCOSE 471 MG/DL (83-110)
[2017-12-03] MEDS: PRAVASTATIN 20 MG TAB PO (20:28)
[2017-12-03] MEDS: LATANOPROST 0.005% OPHTH SOLN 2.5 ML OU (20:29)
[2017-12-03] MEDS: methylPREDNISolone INJ 125 MG/2 ML VIAL (J2930) IV (20:29)
[2017-12-04 06:36] LABS: BASO % 0.1 % (0.0-1.0); HEMATOCRIT 48.7 % (42.0-52.0); HEMOGLOBIN 15.7 g/dl (14.0-18.0); IMMATURE GRANULOCYTE # 0.2 10^3/uL (0-0); LYMPH # 0.8 10^3/uL (1.5-4.5); LYMPH % 5.3 % (24.0-44.0); MEAN CORPUSCULAR HEMOGLOBIN 28.2 pg (27.0-33.0); MEAN CORPUSCULAR HGB CONC 32.2 g/dl (32.0-36.5); MEAN CORPUSCULAR VOLUME 87.6 fl (80.0-96.0); MONO # 0.3 10^3/uL (0.0-0.8); NEUTROPHILS # 14.1 10^3/uL (1.8-7.7); NEUTROPHILS % 91.6 % (36.0-66.0); PLATELET COUNT, AUTOMATED 332 10^3/uL (150-450); RED BLOOD COUNT 5.56 10^6/uL (4.30-6.10); RED CELL DISTRIBUTION WIDTH 14.9 % (11.5-14.5); WHITE BLOOD COUNT 15.4 10^3/uL (4.0-10.0)
[2017-12-04 07:02] LABS: ALBUMIN/GLOBULIN RATIO 0.83 (1.00-1.93); ALKALINE PHOSPHATASE 83 U/L (45-117); ALT/SGPT 33 U/L (12-78); ANION GAP 9 MEQ/L (8-16); AST/SGOT 14 U/L (7-37); BILIRUBIN,TOTAL 1.2 MG/DL (0.2-1.0); BLOOD UREA NITROGEN 47 MG/DL (7-18); CALCIUM LEVEL 9.6 MG/DL (8.8-10.2); CARBON DIOXIDE LEVEL 37 MEQ/L (21-32); CHLORIDE LEVEL 92 MEQ/L (98-107); CREATININE FOR GFR 1.14 MG/DL (0.70-1.30); GLOMERULAR FILTRATION RATE > 60.0 (>42); GLUCOSE, FASTING 293 MG/DL (70-100); MAGNESIUM LEVEL 2.4 MG/DL (1.8-2.4); POTASSIUM SERUM 3.8 MEQ/L (3.5-5.1); SODIUM LEVEL 138 MEQ/L (136-145); TOTAL PROTEIN 6.6 GM/DL (6.4-8.2)
[2017-12-04] MEDS: TIOTROPIUM INHALER/CAPSULE (SPIRIVA) INH (07:42)
[2017-12-04] MEDS: IPRATROPIUM 0.5MG/ALBUTEROL 2.5MG INH SOL UD 3ML (DUONEB)(J7620) NEB ×5 (07:46→20:56)
[2017-12-04] MEDS: APIXABAN 5 MG TAB (ELIQUIS) PO ×2 (08:28→21:35)
[2017-12-04] MEDS: ASPIRIN 81 MG ENTERIC TAB PO (08:28)
[2017-12-04] MEDS: HumaLOG INSULIN (NovoLOG) PER UNIT SC ×4 (08:28→21:36)
[2017-12-04] MEDS: PANTOPRAZOLE 40MG TAB (PROTONIX) PO (08:28)
[2017-12-04] MEDS: guaiFENesin ER 600 MG TAB PO ×2 (08:28→21:35)
[2017-12-04] MEDS: methylPREDNISolone INJ 125 MG/2 ML VIAL (J2930) IV ×2 (08:29→21:35)
[2017-12-04] MEDS: FUROSEMIDE 100 MG/10 ML VIAL (J1940) IV ×2 (08:29→17:37)
[2017-12-04] MEDS: MINERAL OIL 473 ML BTL AU ×2 (08:29→21:36)
[2017-12-04] MEDS: BRIMONIDINE 0.1% OPHTH SOLN 5 ML OU ×3 (08:29→21:35)
[2017-12-04] MEDS: SYMBICORT 160/4.5MCG INHALER 6GM INH ×2 (09:10→20:58)
[2017-12-04 13:20] LABS: BEDSIDE GLUCOSE 360 MG/DL (83-110)
[2017-12-04 14:04] LABS: PREALBUMIN 34.7 MG/DL (20.0-40.0)
[2017-12-04 17:40] LABS: BEDSIDE GLUCOSE 352 MG/DL (83-110)
[2017-12-04 20:52] LABS: BEDSIDE GLUCOSE 310 MG/DL (83-110)
[2017-12-04] MEDS: PRAVASTATIN 20 MG TAB PO (21:35)
[2017-12-04] MEDS: LATANOPROST 0.005% OPHTH SOLN 2.5 ML OU (21:35)
[2017-12-05] MEDS: SODIUM CHLORIDE NASAL 0.65% SPRAY BTL (OCEAN) (05:32)
[2017-12-05] MEDS: IPRATROPIUM 0.5MG/ALBUTEROL 2.5MG INH SOL UD 3ML (DUONEB)(J7620) NEB ×4 (05:42→20:00)
[2017-12-05 07:11] LABS: BASO % 0.1 % (0.0-1.0); HEMATOCRIT 48.4 % (42.0-52.0); HEMOGLOBIN 15.7 g/dl (14.0-18.0); IMMATURE GRANULOCYTE # 0.1 10^3/uL (0-0); IMMATURE GRANULOCYTE % 0.7 % (0-0); LYMPH # 0.6 10^3/uL (1.5-4.5); LYMPH % 3.8 % (24.0-44.0); MEAN CORPUSCULAR HEMOGLOBIN 28.3 pg (27.0-33.0); MEAN CORPUSCULAR HGB CONC 32.4 g/dl (32.0-36.5); MEAN CORPUSCULAR VOLUME 87.2 fl (80.0-96.0); MONO # 0.4 10^3/uL (0.0-0.8); MONO % 2.4 % (0.0-5.0); NEUTROPHILS # 13.9 10^3/uL (1.8-7.7); PLATELET COUNT, AUTOMATED 333 10^3/uL (150-450); RED BLOOD COUNT 5.55 10^6/uL (4.30-6.10); RED CELL DISTRIBUTION WIDTH 15.1 % (11.5-14.5); WHITE BLOOD COUNT 14.9 10^3/uL (4.0-10.0)
[2017-12-05 07:28] LABS: ALBUMIN 3.1 GM/DL (3.2-5.2); ALBUMIN/GLOBULIN RATIO 0.94 (1.00-1.93); ALKALINE PHOSPHATASE 86 U/L (45-117); ALT/SGPT 35 U/L (12-78); ANION GAP 9 MEQ/L (8-16); AST/SGOT 12 U/L (7-37); BILIRUBIN,TOTAL 1.1 MG/DL (0.2-1.0); BLOOD UREA NITROGEN 51 MG/DL (7-18); CALCIUM LEVEL 8.5 MG/DL (8.8-10.2); CARBON DIOXIDE LEVEL 37 MEQ/L (21-32); CHLORIDE LEVEL 93 MEQ/L (98-107); CREATININE FOR GFR 1.17 MG/DL (0.70-1.30); GLOMERULAR FILTRATION RATE > 60.0 (>42); GLUCOSE, FASTING 336 MG/DL (70-100); MAGNESIUM LEVEL 2.2 MG/DL (1.8-2.4); POTASSIUM SERUM 3.6 MEQ/L (3.5-5.1); SODIUM LEVEL 139 MEQ/L (136-145); TOTAL PROTEIN 6.4 GM/DL (6.4-8.2)
[2017-12-05] MEDS: TIOTROPIUM INHALER/CAPSULE (SPIRIVA) INH (08:14)
[2017-12-05] MEDS: ALBUTEROL SULFATE 2.5 MG/0.5 ML INH NEB SOLN NEB (08:15)
[2017-12-05] MEDS: SYMBICORT 160/4.5MCG INHALER 6GM INH (08:15)
[2017-12-05] MEDS: guaiFENesin ER 600 MG TAB PO ×2 (08:21→21:31)
[2017-12-05] MEDS: methylPREDNISolone INJ 125 MG/2 ML VIAL (J2930) IV ×2 (08:21→21:30)
[2017-12-05] MEDS: PANTOPRAZOLE 40MG TAB (PROTONIX) PO (08:21)
[2017-12-05] MEDS: FUROSEMIDE 100 MG/10 ML VIAL (J1940) IV ×2 (08:21→17:29)
[2017-12-05] MEDS: APIXABAN 5 MG TAB (ELIQUIS) PO ×2 (08:21→21:31)
[2017-12-05] MEDS: ASPIRIN 81 MG ENTERIC TAB PO (08:21)
[2017-12-05] MEDS: HumaLOG INSULIN (NovoLOG) PER UNIT SC ×4 (08:22→21:31)
[2017-12-05] MEDS: BRIMONIDINE 0.1% OPHTH SOLN 5 ML OU ×3 (08:29→21:32)
[2017-12-05] MEDS: MINERAL OIL 473 ML BTL AU ×3 (08:29→21:32)
[2017-12-05 11:55] LABS: BEDSIDE GLUCOSE 440 MG/DL (83-110)
[2017-12-05 16:54] LABS: BEDSIDE GLUCOSE 266 MG/DL (83-110)
[2017-12-05 20:41] LABS: BEDSIDE GLUCOSE 382 MG/DL (83-110)
[2017-12-05] MEDS: PRAVASTATIN 20 MG TAB PO (21:31)
[2017-12-05] MEDS: LATANOPROST 0.005% OPHTH SOLN 2.5 ML OU (21:32)
[2017-12-06] MEDS: SYMBICORT 160/4.5MCG INHALER 6GM INH ×3 (00:06→20:01)
[2017-12-06] MEDS: ALBUTEROL SULFATE 2.5 MG/0.5 ML INH NEB SOLN NEB ×2 (05:14→22:31)
[2017-12-06 06:54] LABS: BEDSIDE GLUCOSE 285 MG/DL (83-110)
[2017-12-06] MEDS: TIOTROPIUM INHALER/CAPSULE (SPIRIVA) INH (07:29)
[2017-12-06] MEDS: IPRATROPIUM 0.5MG/ALBUTEROL 2.5MG INH SOL UD 3ML (DUONEB)(J7620) NEB ×4 (08:00→20:00)
[2017-12-06] MEDS: HumaLOG INSULIN (NovoLOG) PER UNIT SC ×4 (08:15→20:35)
[2017-12-06] MEDS: FUROSEMIDE 100 MG/10 ML VIAL (J1940) IV (08:15)
[2017-12-06] MEDS: ASPIRIN 81 MG ENTERIC TAB PO (08:16)
[2017-12-06] MEDS: BRIMONIDINE 0.1% OPHTH SOLN 5 ML OU ×3 (08:16→20:36)
[2017-12-06] MEDS: methylPREDNISolone INJ 125 MG/2 ML VIAL (J2930) IV ×2 (08:16→20:35)
[2017-12-06] MEDS: guaiFENesin ER 600 MG TAB PO ×2 (08:16→20:33)
[2017-12-06] MEDS: MINERAL OIL 473 ML BTL AU ×2 (08:16→20:36)
[2017-12-06] MEDS: PANTOPRAZOLE 40MG TAB (PROTONIX) PO (08:16)
[2017-12-06] MEDS: APIXABAN 5 MG TAB (ELIQUIS) PO ×2 (08:16→20:35)
[2017-12-06 09:13] LABS: HEMOGLOBIN 15.8 g/dl (14.0-18.0); MEAN CORPUSCULAR HEMOGLOBIN 28.7 pg (27.0-33.0); MEAN CORPUSCULAR HGB CONC 32.2 g/dl (32.0-36.5); MEAN CORPUSCULAR VOLUME 88.9 fl (80.0-96.0); PLATELET COUNT, AUTOMATED 344 10^3/uL (150-450); RED BLOOD COUNT 5.51 10^6/uL (4.30-6.10); RED CELL DISTRIBUTION WIDTH 15.2 % (11.5-14.5); WHITE BLOOD COUNT 15.4 10^3/uL (4.0-10.0)
[2017-12-06 09:38] LABS: ANION GAP 10 MEQ/L (8-16); BLOOD UREA NITROGEN 52 MG/DL (7-18); CALCIUM LEVEL 8.7 MG/DL (8.8-10.2); CARBON DIOXIDE LEVEL 36 MEQ/L (21-32); CHLORIDE LEVEL 91 MEQ/L (98-107); CREATININE FOR GFR 1.38 MG/DL (0.70-1.30); GLOMERULAR FILTRATION RATE 53.8 (>42); GLUCOSE, FASTING 398 MG/DL (70-100); POTASSIUM SERUM 4.1 MEQ/L (3.5-5.1); SODIUM LEVEL 137 MEQ/L (136-145)
[2017-12-06 11:55] LABS: BEDSIDE GLUCOSE 314 MG/DL (83-110)
[2017-12-06 17:12] LABS: BEDSIDE GLUCOSE 244 MG/DL (83-110)
[2017-12-06] MEDS: PRAVASTATIN 20 MG TAB PO (20:33)
[2017-12-06] MEDS: LATANOPROST 0.005% OPHTH SOLN 2.5 ML OU (20:36)
[2017-12-06 20:50] LABS: BEDSIDE GLUCOSE 323 MG/DL (83-110)
[2017-12-07 07:05] LABS: HEMATOCRIT 47.7 % (42.0-52.0); HEMOGLOBIN 15.7 g/dl (14.0-18.0); MEAN CORPUSCULAR HEMOGLOBIN 28.6 pg (27.0-33.0); MEAN CORPUSCULAR HGB CONC 32.9 g/dl (32.0-36.5); MEAN CORPUSCULAR VOLUME 86.9 fl (80.0-96.0); PLATELET COUNT, AUTOMATED 333 10^3/uL (150-450); RED BLOOD COUNT 5.49 10^6/uL (4.30-6.10); RED CELL DISTRIBUTION WIDTH 14.9 % (11.5-14.5); WHITE BLOOD COUNT 13.8 10^3/uL (4.0-10.0)
[2017-12-07 07:20] LABS: ANION GAP 6 MEQ/L (8-16); BLOOD UREA NITROGEN 56 MG/DL (7-18); CALCIUM LEVEL 8.6 MG/DL (8.8-10.2); CARBON DIOXIDE LEVEL 37 MEQ/L (21-32); CHLORIDE LEVEL 95 MEQ/L (98-107); GLOMERULAR FILTRATION RATE > 60.0 (>42); GLUCOSE, FASTING 331 MG/DL (70-100); POTASSIUM SERUM 3.9 MEQ/L (3.5-5.1); SODIUM LEVEL 138 MEQ/L (136-145)
[2017-12-07] MEDS: SYMBICORT 160/4.5MCG INHALER 6GM INH ×2 (07:32→20:34)
[2017-12-07] MEDS: TIOTROPIUM INHALER/CAPSULE (SPIRIVA) INH (07:32)
[2017-12-07] MEDS: IPRATROPIUM 0.5MG/ALBUTEROL 2.5MG INH SOL UD 3ML (DUONEB)(J7620) NEB ×4 (07:35→20:00)
[2017-12-07] MEDS: PANTOPRAZOLE 40MG TAB (PROTONIX) PO (08:22)
[2017-12-07] MEDS: APIXABAN 5 MG TAB (ELIQUIS) PO ×2 (08:22→21:13)
[2017-12-07] MEDS: ASPIRIN 81 MG ENTERIC TAB PO (08:22)
[2017-12-07] MEDS: guaiFENesin ER 600 MG TAB PO ×2 (08:22→21:13)
[2017-12-07] MEDS: BRIMONIDINE 0.1% OPHTH SOLN 5 ML OU ×3 (08:23→21:14)
[2017-12-07] MEDS: MINERAL OIL 473 ML BTL AU ×2 (08:23→21:14)
[2017-12-07] MEDS: FUROSEMIDE 40 MG/4 ML VIAL (J1940) IV (08:23)
[2017-12-07] MEDS: methylPREDNISolone INJ 125 MG/2 ML VIAL (J2930) IV (08:23)
[2017-12-07] MEDS: HumaLOG INSULIN (NovoLOG) PER UNIT SC ×4 (08:24→21:14)
[2017-12-07 12:14] LABS: BEDSIDE GLUCOSE 354 MG/DL (83-110)
[2017-12-07 17:23] LABS: BEDSIDE GLUCOSE 293 MG/DL (83-110)
[2017-12-07] MEDS: PRAVASTATIN 20 MG TAB PO (21:13)
[2017-12-07] MEDS: LATANOPROST 0.005% OPHTH SOLN 2.5 ML OU (21:14)
[2017-12-08 05:57] LABS: HEMATOCRIT 45.4 % (42.0-52.0); HEMOGLOBIN 14.9 g/dl (14.0-18.0); MEAN CORPUSCULAR HEMOGLOBIN 28.7 pg (27.0-33.0); MEAN CORPUSCULAR HGB CONC 32.8 g/dl (32.0-36.5); MEAN CORPUSCULAR VOLUME 87.3 fl (80.0-96.0); PLATELET COUNT, AUTOMATED 285 10^3/uL (150-450); RED CELL DISTRIBUTION WIDTH 15.2 % (11.5-14.5); WHITE BLOOD COUNT 14.5 10^3/uL (4.0-10.0)
[2017-12-08 06:16] LABS: ANION GAP 6 MEQ/L (8-16); BLOOD UREA NITROGEN 55 MG/DL (7-18); CALCIUM LEVEL 8.5 MG/DL (8.8-10.2); CARBON DIOXIDE LEVEL 37 MEQ/L (21-32); CHLORIDE LEVEL 97 MEQ/L (98-107); CREATININE FOR GFR 1.07 MG/DL (0.70-1.30); GLOMERULAR FILTRATION RATE > 60.0 (>42); GLUCOSE, FASTING 305 MG/DL (70-100); POTASSIUM SERUM 3.6 MEQ/L (3.5-5.1); SODIUM LEVEL 140 MEQ/L (136-145)
[2017-12-08] MEDS: SODIUM CHLORIDE NASAL 0.65% SPRAY BTL (OCEAN) (06:24)
[2017-12-08] MEDS: TIOTROPIUM INHALER/CAPSULE (SPIRIVA) INH (07:31)
[2017-12-08] MEDS: IPRATROPIUM 0.5MG/ALBUTEROL 2.5MG INH SOL UD 3ML (DUONEB)(J7620) NEB ×4 (07:32→20:00)
[2017-12-08] MEDS: SYMBICORT 160/4.5MCG INHALER 6GM INH ×2 (07:32→20:08)
[2017-12-08] MEDS: predniSONE 20 MG TAB PO (08:14)
[2017-12-08] MEDS: HumaLOG INSULIN (NovoLOG) PER UNIT SC ×4 (08:14→20:31)
[2017-12-08] MEDS: APIXABAN 5 MG TAB (ELIQUIS) PO ×2 (08:15→20:42)
[2017-12-08] MEDS: PANTOPRAZOLE 40MG TAB (PROTONIX) PO (08:15)
[2017-12-08] MEDS: ASPIRIN 81 MG ENTERIC TAB PO (08:15)
[2017-12-08] MEDS: guaiFENesin ER 600 MG TAB PO ×2 (08:15→20:42)
[2017-12-08] MEDS: MINERAL OIL 473 ML BTL AU ×2 (08:15→20:42)
[2017-12-08] MEDS: BRIMONIDINE 0.1% OPHTH SOLN 5 ML OU ×3 (08:16→20:42)
[2017-12-08 10:04] LABS: BEDSIDE GLUCOSE 374 MG/DL (83-110)
[2017-12-08] MEDS: FUROSEMIDE 40 MG/4 ML VIAL (J1940) IV (11:18)
[2017-12-08 12:11] LABS: BEDSIDE GLUCOSE 224 MG/DL (83-110)
[2017-12-08 16:57] LABS: BEDSIDE GLUCOSE 365 MG/DL (83-110)
[2017-12-08] MEDS: LATANOPROST 0.005% OPHTH SOLN 2.5 ML OU (20:42)
[2017-12-08] MEDS: PRAVASTATIN 20 MG TAB PO (20:42)
[2017-12-08 20:44] LABS: BEDSIDE GLUCOSE 231 MG/DL (83-110)
[2017-12-09 06:02] LABS: HEMATOCRIT 46.5 % (42.0-52.0); HEMOGLOBIN 14.9 g/dl (14.0-18.0); MEAN CORPUSCULAR HEMOGLOBIN 28.3 pg (27.0-33.0); MEAN CORPUSCULAR VOLUME 88.4 fl (80.0-96.0); PLATELET COUNT, AUTOMATED 268 10^3/uL (150-450); RED BLOOD COUNT 5.26 10^6/uL (4.30-6.10); RED CELL DISTRIBUTION WIDTH 15.5 % (11.5-14.5); WHITE BLOOD COUNT 13.2 10^3/uL (4.0-10.0)
[2017-12-09 06:23] LABS: ANION GAP 7 MEQ/L (8-16); BLOOD UREA NITROGEN 53 MG/DL (7-18); CALCIUM LEVEL 8.6 MG/DL (8.8-10.2); CARBON DIOXIDE LEVEL 35 MEQ/L (21-32); CHLORIDE LEVEL 99 MEQ/L (98-107); CREATININE FOR GFR 1.03 MG/DL (0.70-1.30); GLOMERULAR FILTRATION RATE > 60.0 (>42); GLUCOSE, FASTING 255 MG/DL (70-100); POTASSIUM SERUM 3.3 MEQ/L (3.5-5.1); SODIUM LEVEL 141 MEQ/L (136-145)
[2017-12-09 07:30] LABS: MAGNESIUM LEVEL 2.4 MG/DL (1.8-2.4)
[2017-12-09] MEDS: SYMBICORT 160/4.5MCG INHALER 6GM INH ×2 (07:38→21:16)
[2017-12-09] MEDS: IPRATROPIUM 0.5MG/ALBUTEROL 2.5MG INH SOL UD 3ML (DUONEB)(J7620) NEB ×4 (07:38→20:00)
[2017-12-09] MEDS: TIOTROPIUM INHALER/CAPSULE (SPIRIVA) INH (07:38)
[2017-12-09] MEDS: predniSONE 20 MG TAB PO (08:13)
[2017-12-09] MEDS: guaiFENesin ER 600 MG TAB PO ×2 (08:14→21:03)
[2017-12-09] MEDS: ASPIRIN 81 MG ENTERIC TAB PO (08:14)
[2017-12-09] MEDS: PANTOPRAZOLE 40MG TAB (PROTONIX) PO (08:14)
[2017-12-09] MEDS: HumaLOG INSULIN (NovoLOG) PER UNIT SC ×4 (08:14→21:00)
[2017-12-09] MEDS: FUROSEMIDE 40 MG/4 ML VIAL (J1940) IV (08:14)
[2017-12-09] MEDS: APIXABAN 5 MG TAB (ELIQUIS) PO ×2 (08:14→21:03)
[2017-12-09] MEDS: MINERAL OIL 473 ML BTL AU ×2 (08:15→21:04)
[2017-12-09] MEDS: BRIMONIDINE 0.1% OPHTH SOLN 5 ML OU ×3 (08:15→21:04)
[2017-12-09] MEDS: POTASSIUM CHLORIDE 10 MEQ SR TABLET PO (10:39)
[2017-12-09 11:36] LABS: BEDSIDE GLUCOSE 347 MG/DL (83-110)
[2017-12-09 17:07] LABS: BEDSIDE GLUCOSE 253 MG/DL (83-110)
[2017-12-09 20:52] LABS: BEDSIDE GLUCOSE 244 MG/DL (83-110)
[2017-12-09] MEDS: PRAVASTATIN 20 MG TAB PO (21:03)
[2017-12-09] MEDS: LATANOPROST 0.005% OPHTH SOLN 2.5 ML OU (21:04)
[2017-12-09] MEDS: ALBUTEROL SULFATE 2.5 MG/0.5 ML INH NEB SOLN NEB (23:30)
[2017-12-10 06:07] LABS: HEMATOCRIT 46.2 % (42.0-52.0); MEAN CORPUSCULAR HEMOGLOBIN 28.8 pg (27.0-33.0); MEAN CORPUSCULAR HGB CONC 32.5 g/dl (32.0-36.5); MEAN CORPUSCULAR VOLUME 88.7 fl (80.0-96.0); PLATELET COUNT, AUTOMATED 231 10^3/uL (150-450); RED BLOOD COUNT 5.21 10^6/uL (4.30-6.10); RED CELL DISTRIBUTION WIDTH 15.4 % (11.5-14.5); WHITE BLOOD COUNT 12.1 10^3/uL (4.0-10.0)
[2017-12-10 06:33] LABS: ANION GAP 5 MEQ/L (8-16); BLOOD UREA NITROGEN 47 MG/DL (7-18); CALCIUM LEVEL 8.2 MG/DL (8.8-10.2); CARBON DIOXIDE LEVEL 36 MEQ/L (21-32); CHLORIDE LEVEL 101 MEQ/L (98-107); CREATININE FOR GFR 0.83 MG/DL (0.70-1.30); GLOMERULAR FILTRATION RATE > 60.0 (>42); GLUCOSE, FASTING 222 MG/DL (70-100); POTASSIUM SERUM 3.6 MEQ/L (3.5-5.1); SODIUM LEVEL 142 MEQ/L (136-145)
[2017-12-10] MEDS: TIOTROPIUM INHALER/CAPSULE (SPIRIVA) INH (07:59)
[2017-12-10] MEDS: SYMBICORT 160/4.5MCG INHALER 6GM INH ×2 (07:59→20:05)
[2017-12-10] MEDS: IPRATROPIUM 0.5MG/ALBUTEROL 2.5MG INH SOL UD 3ML (DUONEB)(J7620) NEB ×4 (07:59→20:00)
[2017-12-10] MEDS: HumaLOG INSULIN (NovoLOG) PER UNIT SC ×4 (08:01→21:23)
[2017-12-10] MEDS: APIXABAN 5 MG TAB (ELIQUIS) PO ×2 (08:50→20:43)
[2017-12-10] MEDS: predniSONE 20 MG TAB PO (08:50)
[2017-12-10] MEDS: ASPIRIN 81 MG ENTERIC TAB PO (08:50)
[2017-12-10] MEDS: PANTOPRAZOLE 40MG TAB (PROTONIX) PO (08:50)
[2017-12-10] MEDS: guaiFENesin ER 600 MG TAB PO ×2 (08:50→20:44)
[2017-12-10] MEDS: FUROSEMIDE 40 MG/4 ML VIAL (J1940) IV (08:51)
[2017-12-10] MEDS: MINERAL OIL 473 ML BTL AU ×2 (08:51→20:48)
[2017-12-10] MEDS: BRIMONIDINE 0.1% OPHTH SOLN 5 ML OU ×3 (09:00→20:44)
[2017-12-10 11:56] LABS: BEDSIDE GLUCOSE 274 MG/DL (83-110)
[2017-12-10] MEDS: SPIRONOLACTONE 12.5MG PER 1/2 TABLET PO (12:06)
[2017-12-10 17:01] LABS: BEDSIDE GLUCOSE 272 MG/DL (83-110)
[2017-12-10] MEDS: LATANOPROST 0.005% OPHTH SOLN 2.5 ML OU (20:44)
[2017-12-10] MEDS: PRAVASTATIN 20 MG TAB PO (20:48)
[2017-12-10] MEDS: SODIUM CHLORIDE 0.9% NASAL GEL 15MG (AYR) (20:55)
[2017-12-10 21:56] LABS: BEDSIDE GLUCOSE 313 MG/DL (83-110)
[2017-12-11] MEDS: SODIUM CHLORIDE 0.9% NASAL GEL 15MG (AYR) (05:47)
[2017-12-11] MEDS: IPRATROPIUM 0.5MG/ALBUTEROL 2.5MG INH SOL UD 3ML (DUONEB)(J7620) NEB ×4 (06:02→20:00)
[2017-12-11 06:42] LABS: HEMOGLOBIN 15.4 g/dl (14.0-18.0); MEAN CORPUSCULAR HEMOGLOBIN 28.9 pg (27.0-33.0); MEAN CORPUSCULAR HGB CONC 32.1 g/dl (32.0-36.5); MEAN CORPUSCULAR VOLUME 90.1 fl (80.0-96.0); PLATELET COUNT, AUTOMATED 229 10^3/uL (150-450); RED BLOOD COUNT 5.33 10^6/uL (4.30-6.10); RED CELL DISTRIBUTION WIDTH 15.7 % (11.5-14.5); WHITE BLOOD COUNT 13.5 10^3/uL (4.0-10.0)
[2017-12-11 06:51] LABS: ANION GAP 5 MEQ/L (8-16); BLOOD UREA NITROGEN 44 MG/DL (7-18); CALCIUM LEVEL 8.4 MG/DL (8.8-10.2); CARBON DIOXIDE LEVEL 35 MEQ/L (21-32); CHLORIDE LEVEL 100 MEQ/L (98-107); CREATININE FOR GFR 0.88 MG/DL (0.70-1.30); GLOMERULAR FILTRATION RATE > 60.0 (>42); GLUCOSE, FASTING 202 MG/DL (70-100); POTASSIUM SERUM 3.8 MEQ/L (3.5-5.1); SODIUM LEVEL 140 MEQ/L (136-145)
[2017-12-11] MEDS: APIXABAN 5 MG TAB (ELIQUIS) PO (08:52)
[2017-12-11] MEDS: guaiFENesin ER 600 MG TAB PO ×2 (08:52→21:13)
[2017-12-11] MEDS: HumaLOG INSULIN (NovoLOG) PER UNIT SC ×4 (08:52→21:53)
[2017-12-11] MEDS: FUROSEMIDE 40 MG/4 ML VIAL (J1940) IV (08:52)
[2017-12-11] MEDS: PANTOPRAZOLE 40MG TAB (PROTONIX) PO (08:53)
[2017-12-11] MEDS: predniSONE 20 MG TAB PO (08:53)
[2017-12-11] MEDS: SPIRONOLACTONE 12.5MG PER 1/2 TABLET PO (08:53)
[2017-12-11] MEDS: MINERAL OIL 473 ML BTL AU ×2 (08:53→21:00)
[2017-12-11] MEDS: ASPIRIN 81 MG ENTERIC TAB PO (08:54)
[2017-12-11] MEDS: BRIMONIDINE 0.1% OPHTH SOLN 5 ML OU ×3 (08:54→21:12)
[2017-12-11] MEDS: TIOTROPIUM INHALER/CAPSULE (SPIRIVA) INH (09:28)
[2017-12-11] MEDS: SYMBICORT 160/4.5MCG INHALER 6GM INH ×2 (09:28→20:21)
[2017-12-11 11:40] LABS: BEDSIDE GLUCOSE 231 MG/DL (83-110)
[2017-12-11 16:40] LABS: BEDSIDE GLUCOSE 313 MG/DL (83-110)
[2017-12-11] MEDS: LATANOPROST 0.005% OPHTH SOLN 2.5 ML OU (21:13)
[2017-12-11] MEDS: PRAVASTATIN 20 MG TAB PO (21:13)
[2017-12-11 21:47] LABS: BEDSIDE GLUCOSE 319 MG/DL (83-110)
[2017-12-12 06:29] LABS: HEMATOCRIT 45.1 % (42.0-52.0); HEMOGLOBIN 14.4 g/dl (14.0-18.0); MEAN CORPUSCULAR HEMOGLOBIN 28.5 pg (27.0-33.0); MEAN CORPUSCULAR HGB CONC 31.9 g/dl (32.0-36.5); MEAN CORPUSCULAR VOLUME 89.1 fl (80.0-96.0); PLATELET COUNT, AUTOMATED 198 10^3/uL (150-450); RED BLOOD COUNT 5.06 10^6/uL (4.30-6.10); RED CELL DISTRIBUTION WIDTH 15.7 % (11.5-14.5); WHITE BLOOD COUNT 11.4 10^3/uL (4.0-10.0)
[2017-12-12 06:47] LABS: ANION GAP 5 MEQ/L (8-16); BLOOD UREA NITROGEN 42 MG/DL (7-18); CALCIUM LEVEL 8.4 MG/DL (8.8-10.2); CARBON DIOXIDE LEVEL 37 MEQ/L (21-32); CHLORIDE LEVEL 100 MEQ/L (98-107); CREATININE FOR GFR 0.88 MG/DL (0.70-1.30); GLOMERULAR FILTRATION RATE > 60.0 (>42); GLUCOSE, FASTING 221 MG/DL (70-100); POTASSIUM SERUM 3.7 MEQ/L (3.5-5.1); SODIUM LEVEL 142 MEQ/L (136-145)
[2017-12-12] MEDS: IPRATROPIUM 0.5MG/ALBUTEROL 2.5MG INH SOL UD 3ML (DUONEB)(J7620) NEB ×4 (07:20→20:00)
[2017-12-12] MEDS: TIOTROPIUM INHALER/CAPSULE (SPIRIVA) INH (07:46)
[2017-12-12] MEDS: SYMBICORT 160/4.5MCG INHALER 6GM INH ×2 (07:46→21:55)
[2017-12-12] MEDS: HumaLOG INSULIN (NovoLOG) PER UNIT SC ×4 (08:55→21:44)
[2017-12-12] MEDS: MINERAL OIL 473 ML BTL AU ×2 (09:00→21:00)
[2017-12-12] MEDS: ASPIRIN 81 MG ENTERIC TAB PO (10:13)
[2017-12-12] MEDS: guaiFENesin ER 600 MG TAB PO ×2 (10:13→21:28)
[2017-12-12] MEDS: PANTOPRAZOLE 40MG TAB (PROTONIX) PO (10:13)
[2017-12-12] MEDS: SPIRONOLACTONE 12.5MG PER 1/2 TABLET PO (10:13)
[2017-12-12] MEDS: predniSONE 20 MG TAB PO (10:13)
[2017-12-12] MEDS: FUROSEMIDE 40 MG/4 ML VIAL (J1940) IV (10:13)
[2017-12-12] MEDS: BRIMONIDINE 0.1% OPHTH SOLN 5 ML OU ×3 (10:14→21:30)
[2017-12-12] MEDS: APIXABAN 5 MG TAB (ELIQUIS) PO ×2 (11:30→21:27)
[2017-12-12 20:09] LABS: BEDSIDE GLUCOSE 301 MG/DL (83-110)
[2017-12-12 20:09] LABS: BEDSIDE GLUCOSE 192 MG/DL (83-110)
[2017-12-12] MEDS: PRAVASTATIN 20 MG TAB PO (21:30)
[2017-12-12] MEDS: LATANOPROST 0.005% OPHTH SOLN 2.5 ML OU (21:31)
[2017-12-13] MEDS: IPRATROPIUM 0.5MG/ALBUTEROL 2.5MG INH SOL UD 3ML (DUONEB)(J7620) NEB ×4 (05:38→19:29)
[2017-12-13] MEDS: SODIUM CHLORIDE 0.9% NASAL GEL 15MG (AYR) (05:58)
[2017-12-13 06:17] LABS: HEMATOCRIT 46.4 % (42.0-52.0); HEMOGLOBIN 14.7 g/dl (14.0-18.0); MEAN CORPUSCULAR HEMOGLOBIN 28.9 pg (27.0-33.0); MEAN CORPUSCULAR HGB CONC 31.7 g/dl (32.0-36.5); MEAN CORPUSCULAR VOLUME 91.2 fl (80.0-96.0); PLATELET COUNT, AUTOMATED 186 10^3/uL (150-450); RED BLOOD COUNT 5.09 10^6/uL (4.30-6.10); RED CELL DISTRIBUTION WIDTH 15.9 % (11.5-14.5); WHITE BLOOD COUNT 11.2 10^3/uL (4.0-10.0)
[2017-12-13 06:34] LABS: BEDSIDE GLUCOSE 353 MG/DL (83-110)
[2017-12-13 06:48] LABS: ANION GAP 6 MEQ/L (8-16); BLOOD UREA NITROGEN 35 MG/DL (7-18); CALCIUM LEVEL 8.3 MG/DL (8.8-10.2); CARBON DIOXIDE LEVEL 37 MEQ/L (21-32); CHLORIDE LEVEL 100 MEQ/L (98-107); CREATININE FOR GFR 0.79 MG/DL (0.70-1.30); GLOMERULAR FILTRATION RATE > 60.0 (>42); GLUCOSE, FASTING 168 MG/DL (70-100); POTASSIUM SERUM 3.8 MEQ/L (3.5-5.1); SODIUM LEVEL 143 MEQ/L (136-145)
[2017-12-13 07:13] LABS: ABG BASE EXCESS 9.6 (-2.0-2.0); ABG DEVICE NASAL CANN; ABG HCO3 33.2 MEQ/L (22.0-26.0); ABG O2 LITER FLOW 10L; ABG O2 SATURATION 87.5 % (95.0-99.0); ABG PARTIAL PRESSURE CO2 40.6 mmHg (35.0-45.0); ABG PARTIAL PRESSURE O2 51.2 mmHg (75.0-100.0); ABG PULSE OX 88; ABG STANDARD HCO3 33.1 MEQ/L (22.0-26.0); ABG TOTAL CO2 34.4 MEQ/L (23.0-31.0)
[2017-12-13] MEDS: SYMBICORT 160/4.5MCG INHALER 6GM INH (07:34)
[2017-12-13] MEDS: TIOTROPIUM INHALER/CAPSULE (SPIRIVA) INH (07:34)
[2017-12-13] MEDS: SODIUM CHLORIDE 0.9% 3ML NEB SOLUTION FOR INHALATION INH ×2 (08:00→19:29)
[2017-12-13] MEDS: BUDESONIDE 0.5 MG/2 ML INHALATION SUSPENSION INH ×2 (08:00→19:29)
[2017-12-13] MEDS: FORMOTEROL FUMARATE 20 MCG/2 ML INHALATION SOLUTION (PERFOROMIST) INH ×2 (08:00→19:28)
[2017-12-13] MEDS: APIXABAN 5 MG TAB (ELIQUIS) PO ×2 (08:24→20:48)
[2017-12-13] MEDS: HumaLOG INSULIN (NovoLOG) PER UNIT SC ×4 (08:24→21:32)
[2017-12-13] MEDS: ASPIRIN 81 MG ENTERIC TAB PO (08:24)
[2017-12-13] MEDS: guaiFENesin ER 600 MG TAB PO ×2 (08:24→20:49)
[2017-12-13] MEDS: MINERAL OIL 473 ML BTL AU ×2 (08:25→20:49)
[2017-12-13] MEDS: FUROSEMIDE 40 MG/4 ML VIAL (J1940) IV (08:25)
[2017-12-13] MEDS: PANTOPRAZOLE 40MG TAB (PROTONIX) PO (08:25)
[2017-12-13] MEDS: predniSONE 20 MG TAB PO (08:25)
[2017-12-13] MEDS: SPIRONOLACTONE 12.5MG PER 1/2 TABLET PO (08:25)
[2017-12-13] MEDS: BRIMONIDINE 0.1% OPHTH SOLN 5 ML OU ×3 (08:26→20:50)
[2017-12-13 09:42] LABS: INFLUENZA A AMPLIFICATION NEGATIVE (NEGATIVE); INFLUENZA B AMPLIFICATION NEGATIVE (NEGATIVE)
[2017-12-13 11:37] LABS: ALBUMIN 2.8 GM/DL (3.2-5.2)
[2017-12-13 11:59] LABS: BEDSIDE GLUCOSE 350 MG/DL (83-110)
[2017-12-13 16:47] LABS: BEDSIDE GLUCOSE 293 MG/DL (83-110)
[2017-12-13] MEDS: PRAVASTATIN 20 MG TAB PO (20:49)
[2017-12-13] MEDS: LATANOPROST 0.005% OPHTH SOLN 2.5 ML OU (20:50)
[2017-12-13 21:34] LABS: BEDSIDE GLUCOSE 396 MG/DL (83-110)
[2017-12-14 05:56] LABS: HEMATOCRIT 44.1 % (42.0-52.0); HEMOGLOBIN 14.1 g/dl (14.0-18.0); MEAN CORPUSCULAR VOLUME 90.7 fl (80.0-96.0); PLATELET COUNT, AUTOMATED 154 10^3/uL (150-450); RED BLOOD COUNT 4.86 10^6/uL (4.30-6.10); RED CELL DISTRIBUTION WIDTH 15.9 % (11.5-14.5); WHITE BLOOD COUNT 12.1 10^3/uL (4.0-10.0)
[2017-12-14 06:16] LABS: ANION GAP 7 MEQ/L (8-16); BLOOD UREA NITROGEN 36 MG/DL (7-18); CALCIUM LEVEL 8.1 MG/DL (8.8-10.2); CARBON DIOXIDE LEVEL 34 MEQ/L (21-32); CHLORIDE LEVEL 102 MEQ/L (98-107); CREATININE FOR GFR 0.77 MG/DL (0.70-1.30); GLOMERULAR FILTRATION RATE > 60.0 (>42); GLUCOSE, FASTING 209 MG/DL (70-100); POTASSIUM SERUM 3.6 MEQ/L (3.5-5.1); SODIUM LEVEL 143 MEQ/L (136-145)
[2017-12-14] MEDS: FORMOTEROL FUMARATE 20 MCG/2 ML INHALATION SOLUTION (PERFOROMIST) INH ×2 (07:24→21:01)
[2017-12-14] MEDS: BUDESONIDE 0.5 MG/2 ML INHALATION SUSPENSION INH ×2 (07:24→21:02)
[2017-12-14] MEDS: SODIUM CHLORIDE 0.9% 3ML NEB SOLUTION FOR INHALATION INH ×2 (08:00→21:01)
[2017-12-14] MEDS: IPRATROPIUM 0.5MG/ALBUTEROL 2.5MG INH SOL UD 3ML (DUONEB)(J7620) NEB ×4 (08:00→21:02)
[2017-12-14] MEDS: APIXABAN 5 MG TAB (ELIQUIS) PO ×2 (08:34→20:52)
[2017-12-14] MEDS: guaiFENesin ER 600 MG TAB PO ×2 (08:34→20:52)
[2017-12-14] MEDS: ASPIRIN 81 MG ENTERIC TAB PO (08:35)
[2017-12-14] MEDS: predniSONE 20 MG TAB PO (08:35)
[2017-12-14] MEDS: PANTOPRAZOLE 40MG TAB (PROTONIX) PO (08:35)
[2017-12-14] MEDS: MINERAL OIL 473 ML BTL AU ×2 (08:35→20:50)
[2017-12-14] MEDS: BRIMONIDINE 0.1% OPHTH SOLN 5 ML OU ×3 (08:35→20:53)
[2017-12-14] MEDS: SPIRONOLACTONE 12.5MG PER 1/2 TABLET PO (08:35)
[2017-12-14] MEDS: HumaLOG INSULIN (NovoLOG) PER UNIT SC ×4 (08:36→20:52)
[2017-12-14] MEDS: FUROSEMIDE 20 MG/2 ML VIAL (J1940) IV (08:39)
[2017-12-14 11:57] LABS: BEDSIDE GLUCOSE 220 MG/DL (83-110)
[2017-12-14 20:23] LABS: BEDSIDE GLUCOSE 365 MG/DL (83-110)
[2017-12-14] MEDS: PRAVASTATIN 20 MG TAB PO (20:51)
[2017-12-14] MEDS: LATANOPROST 0.005% OPHTH SOLN 2.5 ML OU (20:53)
[2017-12-14 21:12] LABS: BEDSIDE GLUCOSE 372 MG/DL (83-110)
[2017-12-15] MEDS: ALBUTEROL SULFATE 2.5 MG/0.5 ML INH NEB SOLN NEB (05:26)
[2017-12-15 06:08] LABS: HEMATOCRIT 45.8 % (42.0-52.0); HEMOGLOBIN 14.5 g/dl (14.0-18.0); MEAN CORPUSCULAR HEMOGLOBIN 28.5 pg (27.0-33.0); MEAN CORPUSCULAR HGB CONC 31.7 g/dl (32.0-36.5); PLATELET COUNT, AUTOMATED 151 10^3/uL (150-450); RED BLOOD COUNT 5.09 10^6/uL (4.30-6.10); WHITE BLOOD COUNT 10.3 10^3/uL (4.0-10.0)
[2017-12-15 06:22] LABS: ANION GAP 6 MEQ/L (8-16); BLOOD UREA NITROGEN 34 MG/DL (7-18); CALCIUM LEVEL 8.6 MG/DL (8.8-10.2); CARBON DIOXIDE LEVEL 33 MEQ/L (21-32); CHLORIDE LEVEL 102 MEQ/L (98-107); CREATININE FOR GFR 0.76 MG/DL (0.70-1.30); GLOMERULAR FILTRATION RATE > 60.0 (>42); GLUCOSE, FASTING 259 MG/DL (70-100); POTASSIUM SERUM 3.7 MEQ/L (3.5-5.1); SODIUM LEVEL 141 MEQ/L (136-145)
[2017-12-15] MEDS: FORMOTEROL FUMARATE 20 MCG/2 ML INHALATION SOLUTION (PERFOROMIST) INH ×2 (07:16→19:50)
[2017-12-15] MEDS: BUDESONIDE 0.5 MG/2 ML INHALATION SUSPENSION INH ×2 (07:16→19:50)
[2017-12-15] MEDS: IPRATROPIUM 0.5MG/ALBUTEROL 2.5MG INH SOL UD 3ML (DUONEB)(J7620) NEB ×4 (07:16→19:50)
[2017-12-15] MEDS: SODIUM CHLORIDE 0.9% 3ML NEB SOLUTION FOR INHALATION INH ×3 (08:00→19:50)
[2017-12-15] MEDS: MINERAL OIL 473 ML BTL AU ×2 (09:00→21:32)
[2017-12-15] MEDS: BRIMONIDINE 0.1% OPHTH SOLN 5 ML OU ×3 (09:07→21:32)
[2017-12-15] MEDS: HumaLOG INSULIN (NovoLOG) PER UNIT SC ×4 (09:09→21:32)
[2017-12-15] MEDS: guaiFENesin ER 600 MG TAB PO ×2 (09:10→21:31)
[2017-12-15] MEDS: APIXABAN 5 MG TAB (ELIQUIS) PO ×2 (09:10→21:31)
[2017-12-15] MEDS: ASPIRIN 81 MG ENTERIC TAB PO (09:10)
[2017-12-15] MEDS: FUROSEMIDE 20 MG/2 ML VIAL (J1940) IV (09:11)
[2017-12-15] MEDS: SPIRONOLACTONE 12.5MG PER 1/2 TABLET PO (09:37)
[2017-12-15] MEDS: PANTOPRAZOLE 40MG TAB (PROTONIX) PO (09:37)
[2017-12-15] MEDS: predniSONE 20 MG TAB PO (09:38)
[2017-12-15] MEDS: NYSTATIN 500,000 U/5 ML SUSP UDC PO ×2 (17:19→21:32)
[2017-12-15 20:34] LABS: BEDSIDE GLUCOSE 358 MG/DL (83-110)
[2017-12-15 20:34] LABS: BEDSIDE GLUCOSE 385 MG/DL (83-110)
[2017-12-15] MEDS: PRAVASTATIN 20 MG TAB PO (21:31)
[2017-12-15] MEDS: LATANOPROST 0.005% OPHTH SOLN 2.5 ML OU (21:33)
[2017-12-16] MEDS: ALBUTEROL SULFATE 2.5 MG/0.5 ML INH NEB SOLN NEB (01:19)
[2017-12-16 06:51] LABS: BEDSIDE GLUCOSE 202 MG/DL (83-110)
[2017-12-16] MEDS: IPRATROPIUM 0.5MG/ALBUTEROL 2.5MG INH SOL UD 3ML (DUONEB)(J7620) NEB ×3 (08:00→20:00)
[2017-12-16] MEDS: SODIUM CHLORIDE 0.9% 3ML NEB SOLUTION FOR INHALATION INH ×2 (08:00→20:02)
[2017-12-16] MEDS: HumaLOG INSULIN (NovoLOG) PER UNIT SC ×4 (08:03→20:47)
[2017-12-16] MEDS: guaiFENesin ER 600 MG TAB PO ×2 (08:04→20:48)
[2017-12-16] MEDS: APIXABAN 5 MG TAB (ELIQUIS) PO ×2 (08:04→20:48)
[2017-12-16] MEDS: predniSONE 20 MG TAB PO (08:04)
[2017-12-16] MEDS: SPIRONOLACTONE 12.5MG PER 1/2 TABLET PO (08:04)
[2017-12-16] MEDS: PANTOPRAZOLE 40MG TAB (PROTONIX) PO (08:04)
[2017-12-16] MEDS: ASPIRIN 81 MG ENTERIC TAB PO (08:04)
[2017-12-16] MEDS: FUROSEMIDE 20 MG/2 ML VIAL (J1940) IV (08:05)
[2017-12-16] MEDS: NYSTATIN 500,000 U/5 ML SUSP UDC PO ×4 (08:05→20:47)
[2017-12-16] MEDS: MINERAL OIL 473 ML BTL AU ×2 (08:06→20:48)
[2017-12-16] MEDS: BRIMONIDINE 0.1% OPHTH SOLN 5 ML OU ×3 (08:06→20:49)
[2017-12-16] MEDS: BUDESONIDE 0.5 MG/2 ML INHALATION SUSPENSION INH ×2 (08:27→20:02)
[2017-12-16] MEDS: FORMOTEROL FUMARATE 20 MCG/2 ML INHALATION SOLUTION (PERFOROMIST) INH ×2 (08:27→20:02)
[2017-12-16 11:59] LABS: BEDSIDE GLUCOSE 287 MG/DL (83-110)
[2017-12-16 12:00] LABS: BEDSIDE GLUCOSE 286 MG/DL (83-110)
[2017-12-16 16:53] LABS: BEDSIDE GLUCOSE 383 MG/DL (83-110)
[2017-12-16 20:28] LABS: BEDSIDE GLUCOSE 368 MG/DL (83-110)
[2017-12-16] MEDS: LEVEMIR (INSULIN DETEMIR) 1 UNITS/0.01ML SC (20:47)
[2017-12-16] MEDS: PRAVASTATIN 20 MG TAB PO (20:48)
[2017-12-16] MEDS: BENZONATATE 100 MG CAP PO (20:48)
[2017-12-16] MEDS: LATANOPROST 0.005% OPHTH SOLN 2.5 ML OU (20:49)
[2017-12-17 06:28] LABS: BEDSIDE GLUCOSE 167 MG/DL (83-110)
[2017-12-17] MEDS: BUDESONIDE 0.5 MG/2 ML INHALATION SUSPENSION INH ×2 (07:56→20:13)
[2017-12-17] MEDS: FORMOTEROL FUMARATE 20 MCG/2 ML INHALATION SOLUTION (PERFOROMIST) INH ×2 (07:56→20:13)
[2017-12-17] MEDS: IPRATROPIUM 0.5MG/ALBUTEROL 2.5MG INH SOL UD 3ML (DUONEB)(J7620) NEB ×4 (07:57→20:00)
[2017-12-17] MEDS: SODIUM CHLORIDE 0.9% 3ML NEB SOLUTION FOR INHALATION INH ×2 (08:00→23:47)
[2017-12-17] MEDS: MINERAL OIL 473 ML BTL AU ×2 (09:00→21:00)
[2017-12-17] MEDS: NYSTATIN 500,000 U/5 ML SUSP UDC PO ×4 (09:05→21:08)
[2017-12-17] MEDS: HumaLOG INSULIN (NovoLOG) PER UNIT SC ×4 (09:05→21:09)
[2017-12-17] MEDS: FUROSEMIDE 20 MG/2 ML VIAL (J1940) IV (09:06)
[2017-12-17] MEDS: SPIRONOLACTONE 12.5MG PER 1/2 TABLET PO (09:06)
[2017-12-17] MEDS: guaiFENesin ER 600 MG TAB PO ×2 (09:06→21:08)
[2017-12-17] MEDS: PANTOPRAZOLE 40MG TAB (PROTONIX) PO (09:06)
[2017-12-17] MEDS: predniSONE 20 MG TAB PO (09:06)
[2017-12-17] MEDS: SITagliptin 50 MG TAB (JANUVIA) PO (09:07)
[2017-12-17] MEDS: APIXABAN 5 MG TAB (ELIQUIS) PO ×2 (09:07→21:08)
[2017-12-17] MEDS: ASPIRIN 81 MG ENTERIC TAB PO (09:07)
[2017-12-17] MEDS: BRIMONIDINE 0.1% OPHTH SOLN 5 ML OU ×3 (09:09→21:09)
[2017-12-17 11:56] LABS: BEDSIDE GLUCOSE 195 MG/DL (83-110)
[2017-12-17 16:53] LABS: BEDSIDE GLUCOSE 343 MG/DL (83-110)
[2017-12-17] MEDS: PRAVASTATIN 20 MG TAB PO (21:08)
[2017-12-17] MEDS: LATANOPROST 0.005% OPHTH SOLN 2.5 ML OU (21:09)
[2017-12-17] MEDS: LEVEMIR (INSULIN DETEMIR) 1 UNITS/0.01ML SC (21:09)
[2017-12-17 21:25] LABS: BEDSIDE GLUCOSE 384 MG/DL (83-110)
[2017-12-18 05:49] LABS: HEMATOCRIT 45.2 % (42.0-52.0); HEMOGLOBIN 14.3 g/dl (14.0-18.0); MEAN CORPUSCULAR HEMOGLOBIN 28.9 pg (27.0-33.0); MEAN CORPUSCULAR HGB CONC 31.6 g/dl (32.0-36.5); MEAN CORPUSCULAR VOLUME 91.3 fl (80.0-96.0); PLATELET COUNT, AUTOMATED 122 10^3/uL (150-450); RED BLOOD COUNT 4.95 10^6/uL (4.30-6.10); RED CELL DISTRIBUTION WIDTH 15.9 % (11.5-14.5); WHITE BLOOD COUNT 9.9 10^3/uL (4.0-10.0)
[2017-12-18 06:06] LABS: ANION GAP 5 MEQ/L (8-16); BLOOD UREA NITROGEN 34 MG/DL (7-18); CALCIUM LEVEL 8.8 MG/DL (8.8-10.2); CARBON DIOXIDE LEVEL 35 MEQ/L (21-32); CHLORIDE LEVEL 101 MEQ/L (98-107); CREATININE FOR GFR 0.74 MG/DL (0.70-1.30); GLOMERULAR FILTRATION RATE > 60.0 (>42); GLUCOSE, FASTING 182 MG/DL (70-100); MAGNESIUM LEVEL 2.3 MG/DL (1.8-2.4); POTASSIUM SERUM 3.8 MEQ/L (3.5-5.1); SODIUM LEVEL 141 MEQ/L (136-145)
[2017-12-18] MEDS: FORMOTEROL FUMARATE 20 MCG/2 ML INHALATION SOLUTION (PERFOROMIST) INH ×2 (07:22→20:31)
[2017-12-18] MEDS: BUDESONIDE 0.5 MG/2 ML INHALATION SUSPENSION INH ×2 (07:22→20:32)
[2017-12-18] MEDS: IPRATROPIUM 0.5MG/ALBUTEROL 2.5MG INH SOL UD 3ML (DUONEB)(J7620) NEB ×4 (07:23→20:00)
[2017-12-18] MEDS: SODIUM CHLORIDE 0.9% 3ML NEB SOLUTION FOR INHALATION INH ×2 (07:23→20:00)
[2017-12-18] MEDS: HumaLOG INSULIN (NovoLOG) PER UNIT SC ×4 (07:30→21:14)
[2017-12-18] MEDS: guaiFENesin ER 600 MG TAB PO ×2 (08:11→21:13)
[2017-12-18] MEDS: ASPIRIN 81 MG ENTERIC TAB PO (08:11)
[2017-12-18] MEDS: SITagliptin 50 MG TAB (JANUVIA) PO (08:11)
[2017-12-18] MEDS: FUROSEMIDE 20 MG/2 ML VIAL (J1940) IV (08:11)
[2017-12-18] MEDS: PANTOPRAZOLE 40MG TAB (PROTONIX) PO (08:11)
[2017-12-18] MEDS: SPIRONOLACTONE 12.5MG PER 1/2 TABLET PO (08:11)
[2017-12-18] MEDS: predniSONE 20 MG TAB PO (08:11)
[2017-12-18] MEDS: MINERAL OIL 473 ML BTL AU ×2 (08:12→21:00)
[2017-12-18] MEDS: BRIMONIDINE 0.1% OPHTH SOLN 5 ML OU ×3 (08:12→21:16)
[2017-12-18] MEDS: APIXABAN 5 MG TAB (ELIQUIS) PO ×2 (08:12→21:13)
[2017-12-18] MEDS: NYSTATIN 500,000 U/5 ML SUSP UDC PO ×4 (08:12→21:13)
[2017-12-18 12:17] LABS: BEDSIDE GLUCOSE 206 MG/DL (83-110)
[2017-12-18] MEDS: FUROSEMIDE 40 MG/4 ML VIAL (J1940) IV (15:05)
[2017-12-18 16:49] LABS: BEDSIDE GLUCOSE 400 MG/DL (83-110)
[2017-12-18 17:15] LABS: BEDSIDE GLUCOSE 314 MG/DL (83-110)
[2017-12-18] MEDS: PRAVASTATIN 20 MG TAB PO (21:13)
[2017-12-18] MEDS: LEVEMIR (INSULIN DETEMIR) 1 UNITS/0.01ML SC (21:15)
[2017-12-18] MEDS: LATANOPROST 0.005% OPHTH SOLN 2.5 ML OU (21:16)
[2017-12-18 22:26] LABS: BEDSIDE GLUCOSE 332 MG/DL (83-110)
[2017-12-19 06:13] LABS: HEMATOCRIT 44.1 % (42.0-52.0); HEMOGLOBIN 13.9 g/dl (14.0-18.0); MEAN CORPUSCULAR HEMOGLOBIN 28.5 pg (27.0-33.0); MEAN CORPUSCULAR HGB CONC 31.5 g/dl (32.0-36.5); MEAN CORPUSCULAR VOLUME 90.6 fl (80.0-96.0); PLATELET COUNT, AUTOMATED 124 10^3/uL (150-450); RED BLOOD COUNT 4.87 10^6/uL (4.30-6.10); RED CELL DISTRIBUTION WIDTH 15.9 % (11.5-14.5)
[2017-12-19 06:36] LABS: ANION GAP 6 MEQ/L (8-16); BLOOD UREA NITROGEN 36 MG/DL (7-18); CALCIUM LEVEL 8.6 MG/DL (8.8-10.2); CARBON DIOXIDE LEVEL 35 MEQ/L (21-32); CHLORIDE LEVEL 100 MEQ/L (98-107); CREATININE FOR GFR 0.81 MG/DL (0.70-1.30); GLOMERULAR FILTRATION RATE > 60.0 (>42); GLUCOSE, FASTING 184 MG/DL (70-100); POTASSIUM SERUM 3.7 MEQ/L (3.5-5.1); SODIUM LEVEL 141 MEQ/L (136-145)
[2017-12-19] MEDS: MINERAL OIL 473 ML BTL AU ×3 (07:14→20:56)
[2017-12-19] MEDS: HumaLOG INSULIN (NovoLOG) PER UNIT SC ×4 (07:23→20:51)
[2017-12-19] MEDS: SODIUM CHLORIDE 0.9% 3ML NEB SOLUTION FOR INHALATION INH ×2 (08:00→19:14)
[2017-12-19] MEDS: IPRATROPIUM 0.5MG/ALBUTEROL 2.5MG INH SOL UD 3ML (DUONEB)(J7620) NEB ×4 (08:00→19:14)
[2017-12-19] MEDS: NYSTATIN 500,000 U/5 ML SUSP UDC PO ×4 (08:23→20:44)
[2017-12-19] MEDS: SITagliptin 50 MG TAB (JANUVIA) PO (08:23)
[2017-12-19] MEDS: predniSONE 20 MG TAB PO (08:23)
[2017-12-19] MEDS: SPIRONOLACTONE 12.5MG PER 1/2 TABLET PO (08:23)
[2017-12-19] MEDS: APIXABAN 5 MG TAB (ELIQUIS) PO ×2 (08:23→20:44)
[2017-12-19] MEDS: FUROSEMIDE 40 MG/4 ML VIAL (J1940) IV (08:23)
[2017-12-19] MEDS: PANTOPRAZOLE 40MG TAB (PROTONIX) PO (08:24)
[2017-12-19] MEDS: ASPIRIN 81 MG ENTERIC TAB PO (08:24)
[2017-12-19] MEDS: BRIMONIDINE 0.1% OPHTH SOLN 5 ML OU ×3 (08:24→20:52)
[2017-12-19] MEDS: guaiFENesin ER 600 MG TAB PO ×2 (08:24→20:44)
[2017-12-19] MEDS: FORMOTEROL FUMARATE 20 MCG/2 ML INHALATION SOLUTION (PERFOROMIST) INH ×2 (09:56→19:13)
[2017-12-19] MEDS: BUDESONIDE 0.5 MG/2 ML INHALATION SUSPENSION INH ×2 (09:56→19:14)
[2017-12-19 17:16] LABS: BEDSIDE GLUCOSE 236 MG/DL (83-110)
[2017-12-19 17:16] LABS: BEDSIDE GLUCOSE 274 MG/DL (83-110)
[2017-12-19] MEDS: PRAVASTATIN 20 MG TAB PO (20:44)
[2017-12-19] MEDS: LATANOPROST 0.005% OPHTH SOLN 2.5 ML OU (20:44)
[2017-12-19] MEDS: SODIUM CHLORIDE NASAL 0.65% SPRAY BTL (OCEAN) (20:46)
[2017-12-19] MEDS: LEVEMIR (INSULIN DETEMIR) 1 UNITS/0.01ML SC (20:47)
[2017-12-19 20:58] LABS: BEDSIDE GLUCOSE 307 MG/DL (83-110)
[2017-12-20 06:51] LABS: HEMATOCRIT 43.4 % (42.0-52.0); HEMOGLOBIN 13.8 g/dl (14.0-18.0); MEAN CORPUSCULAR HEMOGLOBIN 28.9 pg (27.0-33.0); MEAN CORPUSCULAR HGB CONC 31.8 g/dl (32.0-36.5); MEAN CORPUSCULAR VOLUME 90.8 fl (80.0-96.0); PLATELET COUNT, AUTOMATED 108 10^3/uL (150-450); RED BLOOD COUNT 4.78 10^6/uL (4.30-6.10); RED CELL DISTRIBUTION WIDTH 15.7 % (11.5-14.5); WHITE BLOOD COUNT 8.5 10^3/uL (4.0-10.0)
[2017-12-20] MEDS: BUDESONIDE 0.5 MG/2 ML INHALATION SUSPENSION INH (07:00)
[2017-12-20] MEDS: SODIUM CHLORIDE 0.9% 3ML NEB SOLUTION FOR INHALATION INH (07:00)
[2017-12-20] MEDS: FORMOTEROL FUMARATE 20 MCG/2 ML INHALATION SOLUTION (PERFOROMIST) INH (07:00)
[2017-12-20 07:05] LABS: ANION GAP 7 MEQ/L (8-16); BLOOD UREA NITROGEN 35 MG/DL (7-18); CALCIUM LEVEL 8.1 MG/DL (8.8-10.2); CARBON DIOXIDE LEVEL 35 MEQ/L (21-32); CHLORIDE LEVEL 100 MEQ/L (98-107); CREATININE FOR GFR 0.67 MG/DL (0.70-1.30); GLOMERULAR FILTRATION RATE > 60.0 (>42); GLUCOSE, FASTING 151 MG/DL (70-100); POTASSIUM SERUM 3.8 MEQ/L (3.5-5.1); SODIUM LEVEL 142 MEQ/L (136-145)
[2017-12-20] MEDS: IPRATROPIUM 0.5MG/ALBUTEROL 2.5MG INH SOL UD 3ML (DUONEB)(J7620) NEB ×3 (08:00→15:08)
[2017-12-20] MEDS: SPIRONOLACTONE 12.5MG PER 1/2 TABLET PO (08:35)
[2017-12-20] MEDS: ASPIRIN 81 MG ENTERIC TAB PO (08:35)
[2017-12-20] MEDS: predniSONE 20 MG TAB PO (08:35)
[2017-12-20] MEDS: HumaLOG INSULIN (NovoLOG) PER UNIT SC ×2 (08:35→12:14)
[2017-12-20] MEDS: guaiFENesin ER 600 MG TAB PO (08:35)
[2017-12-20] MEDS: SITagliptin 50 MG TAB (JANUVIA) PO (08:35)
[2017-12-20] MEDS: NYSTATIN 500,000 U/5 ML SUSP UDC PO ×2 (08:36→12:13)
[2017-12-20] MEDS: FUROSEMIDE 40 MG/4 ML VIAL (J1940) IV (08:36)
[2017-12-20] MEDS: PANTOPRAZOLE 40MG TAB (PROTONIX) PO (08:36)
[2017-12-20] MEDS: BRIMONIDINE 0.1% OPHTH SOLN 5 ML OU (08:36)
[2017-12-20] MEDS: APIXABAN 5 MG TAB (ELIQUIS) PO (08:36)
[2017-12-20] MEDS: MINERAL OIL 473 ML BTL AU (08:37)
[2017-12-20 10:16] LABS: BEDSIDE GLUCOSE 142 MG/DL (83-110)
[2017-12-20 11:50] LABS: BEDSIDE GLUCOSE 195 MG/DL (83-110)
== END 2017-12-20 16:35 | disposition home health service (06) | DRG 189 ==
LOC: M MSPAV 11-27 14:15 → M ED 10:14 → M ED INP 12:53 → M ICU 13:47
DX: J96.21 Acute and chronic respiratory failure with hypoxia (principal); I50.33 Acute on chronic diastolic (congestive) heart failure; J44.1 Chronic obstructive pulmonary disease with (acute) exacerbation; N17.9 Acute kidney failure, unspecified; J96.22 Acute and chronic respiratory failure with hypercapnia; I11.0 Hypertensive heart disease with heart failure; E86.1 Hypovolemia; I48.0 Paroxysmal atrial fibrillation; K21.9 Gastro-esophageal reflux disease without esophagitis; H40.9 Unspecified glaucoma; I73.9 Peripheral vascular disease, unspecified; Z87.891 Personal history of nicotine dependence; Z95.9 Presence of cardiac and vascular implant and graft, unspecified; Z99.81 Dependence on supplemental oxygen; Z98.52 Vasectomy status; Z96.641 Presence of right artificial hip joint; Z88.8 Allergy status to other drugs, medicaments and biological substances; Z88.6 Allergy status to analgesic agent; Z79.82 Long term (current) use of aspirin; Z79.4 Long term (current) use of insulin; E11.9 Type 2 diabetes mellitus without complications

== ENCOUNTER 2018-04-02 20:29 | Emergency (ER) | payer MEDICARE ==
[2018-04-02 22:01] LABS: BASO % 0.3 % (0.0-1.0); EOS # 0.3 10^3/uL (0.0-0.50); EOS % 2.8 % (0.0-3.0); HEMATOCRIT 37.8 % (42.0-52.0); HEMOGLOBIN 11.9 g/dl (13.5-17.5); IMMATURE GRANULOCYTE % 0.4 % (0-3.0); LYMPH # 1.8 10^3/uL (1.5-4.5); LYMPH % 20.6 % (24.0-44.0); MEAN CORPUSCULAR HEMOGLOBIN 29.6 pg (27.0-33.0); MEAN CORPUSCULAR HGB CONC 31.5 g/dl (32.0-36.5); MONO # 0.9 10^3/uL (0.0-0.8); MONO % 10.1 % (0.0-5.0); NEUTROPHILS # 5.8 10^3/uL (1.8-7.7); NEUTROPHILS % 65.8 % (36.0-66.0); PLATELET COUNT, AUTOMATED 308 10^3/uL (150-450); RED BLOOD COUNT 4.02 10^6/uL (4.30-6.10); RED CELL DISTRIBUTION WIDTH 13.1 % (11.5-14.5); WHITE BLOOD COUNT 8.9 10^3/uL (4.0-10.0)
[2018-04-02 22:18] LABS: ERYTHROCYTE SEDIMENTATION RATE 69 mm/hr (0-20)
[2018-04-02 22:32] LABS: ANION GAP 5 MEQ/L (8-16); BLOOD UREA NITROGEN 26 MG/DL (7-18); C REACTIVE PROTEIN QUANTITATIV 5.12 MG/DL (0.00-0.30); CALCIUM LEVEL 8.4 MG/DL (8.8-10.2); CARBON DIOXIDE LEVEL 36 MEQ/L (21-32); CHLORIDE LEVEL 99 MEQ/L (98-107); CREATININE FOR GFR 0.96 MG/DL (0.70-1.30); GLOMERULAR FILTRATION RATE > 60.0 (>42); GLUCOSE, FASTING 147 MG/DL (70-100); NT-PRO BNP 33 PG/ML (<125); POTASSIUM SERUM 3.6 MEQ/L (3.5-5.1); SODIUM LEVEL 140 MEQ/L (136-145)
[2018-04-02] MEDS: CLINDAMYCIN 150 MG CAP PO (22:52)
== END 2018-04-02 22:53 | disposition home or self-care (01) ==
LOC: M ED 20:29
DX: L03.115 Cellulitis of right lower limb (principal); L03.116 Cellulitis of left lower limb; I48.91 Unspecified atrial fibrillation; E11.9 Type 2 diabetes mellitus without complications; I10 Essential (primary) hypertension; J44.9 Chronic obstructive pulmonary disease, unspecified; H40.9 Unspecified glaucoma; Z87.891 Personal history of nicotine dependence; Z79.82 Long term (current) use of aspirin; Z79.899 Other long term (current) drug therapy; Z88.6 Allergy status to analgesic agent
CPT/HCPCS: 80048

== ENCOUNTER 2020-12-14 13:26 | Inpatient (IN) | payer MEDICARE ==
[~2020-12-14] VITALS: Ht 177.8 cm; Wt 90.6 kg
[~2020-12-14 13:26] MED LIST changes: +ALDA25TA2 PO; -ASPI81CH PO; +ASPI81CH49 PO; +ASPI81TA26 PO; +BRIM1OPD OU; +CLEO300C2 PO; -COUM2.5T11 PO; +COUM2.5T17 PO; +DILT30TA PO; +DULE200A INH; +ELIQ5TAB PO; +HYDR25TAB PO; +JANU100T PO; +LASI40TA9 PO; +LATA0.009 OU; -LATA5OPD OU; -LOSA100T36 PO; +LOSA100T50 PO; -NICO21DI5 TD; +NICO21DI6 TD; +PERC5TAB12 PO; -PERC5TAB6 PO; -PRAV10TA PO; +PRAV10TA4 PO; +PRED20TA PO; -TIMO0.5S4 OU; +TIMO0.5S42 OU; +TRIA0.1C60 TOP; +VENTAER INH; -XALA0.002 OD; -XALA0.002 OU; +XALA0.007 OD; +XALA0.007 OU
[2020-12-14] MEDS ORDERED: PANTOPRAZOLE 40MG VIAL (C9113 PER 1) IV ONE (14:00)
[2020-12-14 14:28] LABS: BASO % 0.3 % (0.0-1.0); EOS # 0.3 10^3/uL (0.0-0.5); EOS % 2.7 % (0.0-3.0); HEMATOCRIT 38.9 % (42.0-52.0); HEMOGLOBIN 10.6 g/dl (13.5-17.5); LYMPH # 1.4 10^3/uL (1.5-5.0); LYMPH % 13.1 % (24.0-44.0); MEAN CORPUSCULAR HEMOGLOBIN 22.4 pg (27.0-33.0); MEAN CORPUSCULAR HGB CONC 27.2 g/dl (32.0-36.5); MEAN CORPUSCULAR VOLUME 82.2 fl (80.0-96.0); MONO # 0.9 10^3/uL (0.0-0.8); MONO % 8.5 % (0.0-5.0); NEUTROPHILS # 8.2 10^3/uL (1.5-8.5); NEUTROPHILS % 74.9 % (36.0-66.0); PLATELET COUNT, AUTOMATED 325 10^3/uL (150-450); RED BLOOD COUNT 4.73 10^6/uL (4.30-6.10); WHITE BLOOD COUNT 10.9 10^3/uL (4.0-10.0)
[2020-12-14 14:36] LABS: INR 1.15; PARTIAL THROMBOPLASTIN TIME 32.9 SECONDS (24.2-38.5)
[2020-12-14 14:57] LABS: ALBUMIN 3.5 GM/DL (3.2-5.2); ALT/SGPT 18 U/L (12-78); BILIRUBIN,DIRECT 0.1 MG/DL (0.0-0.2); BILIRUBIN,TOTAL 0.3 MG/DL (0.2-1.0); BLOOD UREA NITROGEN 27 MG/DL (7-18); CALCIUM LEVEL 8.5 MG/DL (8.8-10.2); CARBON DIOXIDE LEVEL 38 MEQ/L (21-32); CHLORIDE LEVEL 100 MEQ/L (98-107); CK-MB VALUE MASS 3.8 NG/ML (<3.6); CPK CREATINE PHOSPHOKINASE 71 U/L (39-308); CREATININE FOR GFR 0.75 MG/DL (0.70-1.30); GLOMERULAR FILTRATION RATE > 60.0 (>42); GLUCOSE, FASTING 133 MG/DL (70-100); LIPASE 128 U/L (73-393); MB/CK RELATIVE INDEX 5.35 (< OR =4); POTASSIUM SERUM 4.1 MEQ/L (3.5-5.1); SODIUM LEVEL 140 MEQ/L (136-145); TOTAL PROTEIN 7.1 GM/DL (6.4-8.2); TROPONIN I < 0.02 NG/ML (< 0.10)
--- OUTSIDE RECORDS SUMMARY | 2020-12-14 15:53 | CCD | Continuity of Care Document ---
Author Author Lalo DAY D.O. Organization Unknown Address [address] [place] [id number] Phone [phone] Problems Active Problems Provider Date Chronic obstructive lung disease Jorje Moya RPA Onse t: 04/26/2005 Diverticular disease of colon Hesham Day D.O., FAAFP O nset: 10/23/2006 Hyperlipidemia Hesham Day D.O., FAAFP Onset: 02/2007 Peripheral vascular disease Hesham Day D.O., FAAFP Ons et: 12/23/2010 Impotence of organic origin Hesham Day D.O., NYDIA Ons et: 12/05/2012 Type 2 diabetes mellitus Hesham Day D.O., FAAFP Onset: 04/02/2014 Microscopic hematuria Hesham Day D.O., FAAFP Onset: Note: w/u negative Glaucoma Hesham Day D.O., FAAFP Onset: 02/11 Note: occular hypertension Lumbosacral spondylosis Hesham Day D.O., FAAFP Onset: 09/02/2015 Essential hypertension Hesham Day D.O., FAAFP Onset: 1 Lumbosacral stenosis Hesham Day D.O., FAAFP Onset: Spinal stenosis of lumbar region Hesham Day D.O., FAAF P Onset: 05/17/2017 Chronic diastolic heart failure Hesham Day D.O., FAAFP Onset: 03/07/2018 Paroxysmal atrial fibrillation Hesham Day D.O., FAAFP Onset: 04/24/2019 Social History Type Date Description Comments Sex Unknown Tobacco Use Start: Unknown End: Unknown Former Cigar ette Smoker 1 1/2 Packs Daily ETOH Use [email or web address] Tobacco Use Start: Unknown End: Unknown Patient is a former smoker quit March 2014 Smoking Status Reviewed: 07/15/20 Patient is a former smoker qu it March 2014 Allergies, Adverse Reactions, Alerts Active Allergies Reaction Severity Comments Date Aspirin Ulcers 09/22/2010 NSAIDs ulcers 08/29/2012 Inactive Allergies NKDA 02/19/2002 Medications Active Medications SIG Qnty Indications Ordering Provide r Date Januvia 50mg Tablets 1 tab by mouth every day 90tabs Hesham Day D.O., [facility] Pravastatin Sodium 20mg Tablets Take 1 Tablet By Mouth Every Day For Cholesterol. Maximum Daily Dose Is 1. 90tabs Hesham Day D.O., [facility] 04/08/2020 Levalbuterol HCL 1.25mg/3ML Nebuli zer Use 1 Vial Via Nebulizer Three Times Daily 225units Hesham Day D.O., FAAFP 01/30/2020 Furosemide 40mg Tablets Take 1 Tablet By Mouth Twice Daily 180tabs Hesham aDy D.O., [facility] 1 Shingrix 50mcg Suspension Rec 1 intramuscular today repeat in 2-6 months 1units Hesham Day D.O., FAA[facility] 06/27/2018 Spironolactone 25mg Tablets 1/2 tab by mouth every day 45tabs Hesham Day D.O., FAAFP Diltiazem HCL 30mg Tablets take 1 tablet by mouth twice daily 180tabs Hesham Day D.O., FAAF P 12/26/2017 Acetaminophen 325mg Tablets 2 tablets by mouth as needed every 4 hours for pain/fever 100tabs Hesham Day D.O., FAAFP 12/26/2017 Eliquis 5mg Tablets take 1 tablet by mouth twice daily 60tabs Hesham Day D.O., FAAFP Alphagan P 0.1% Solution 1 drop three times daily both eyes Hesham Day D.O., [facility] FP 12/26/2017 Prevnar 13 Suspension as directed Done Hesham Day D.O., [facility] 08/30/2017 Pantoprazole Sodium 40mg Tablets D R Take 1 Tablet By Mouth Every Day. Maximum Daily Dose Is 1 90tabs Hesham Day D.O., [facility] 09/01/2016 Mupirocin Calcium 2% Cream to Left Elbow 15gm Hesham Day D.O., FAAFP 06/29/2016 Triamcinolone Acetonide 0.1% Cream apply locally Elbows bid 60gm Hesham Day D.O., FAAFP 03/09/2016 Dulera 200-5mcg/Act Aerosol 1 puff twice a day 3units Hesham Day D.O., FAAFP Ventolin HFA 108(90Base) mcg/Act A erosol ii puffs every 4-6 hours as needed 3units Hesham gonzalez D.O., FAAFP 12/01/2014 Contour Blood Glucose Test Strips Strips use to test blood sugar twice daily as needed as directed 100units E1 1.9 Hesham Day D.O., [facility] 08/27/2014 Blood Glucose Test Strips test blood glucose daily (E11.9) 100units E11.9 Hesham Day D.O., [facility] FP 06/24/2014 Asa 81 Capsules 1 tab daily Unknown Latanoprost 0.005% Solution 1 gtt ou hs Unknown B-100 Complex Tablets 1 PO D aily Unknown Medications Administered in Office Medication SIG Qnty Indications Ordering Provider Date Injection (SC)/(Im) Injection Hesham Day D.O., FAAFP 01/30/2020 Injection (SC)/(Im) Injection Chiki Aldana, RPA 05/02/2010 Injection (SC)/(Im) Injection Chiki Aldana, RPA 04/29/2010 Injection (SC)/(Im) Injection Hesham Day D.O., FAAFP 08/09/2009 Injection Subcutaneous Or Intramuscular Injection Hesham Day D.O., FAAFP 09/02/2008 Injection Subcutaneous Or Intramuscular Injection Hesham Day D.O., [facility] 2007 Injection Subcutaneous Or Intramuscular Injection Hesham Day D.O., [facility] 08/20/2006 Injection (SC)/(Im) Injection Trino Zamora M.D. 09/30/2002 Immunizations CPT Code Status Date Vaccine Lot # [id number] Given 07/31/2019 Influenza Virus Vaccine, Quadrivalent, Slit Virus, Im Use 3Y & Up [id number] 46441 Given 09/06/2018 Influenza Virus Vaccine, Quadrivalent, Slit Virus, Im Use 3Y & Up [id number] 00398 Given 09/17/2015 Pneumococcal Immunization L0 [id number] 99168 Given 09/02/2015 Influenza Vaccin e (Fluzone) 3Yrs Of Age Or Older Medicare Plans [id number] Q2037 Given 08/20/2014 Influenza Vaccin e (Fluvirin) 3Yrs Of Age Or Older Medicare Plans 29566 Given 08/20/2014 Influenza Virus Vac. Split Virus Individuals 3 Years And Above [id number] 30310 Given 08/21/2013 Influenza Vaccin e (Fluzone) 3Yrs Of Age Or Older Medicare Plans 60052 Given 08/21/2013 Influenza Virus Vac. Split Virus Individuals 3 Years And Above [id number] 25726 Given 08/20/2012 Influenza Virus Vac. Split Virus Individuals 3 Years And Above [id number] 57077 Given 08/20/2012 Influenza Vaccin e (Fluzone) 3Yrs Of Age Or Older Medicare Plans 32964 Given 08/17/2011 Influenza Virus Vac. Split Virus Individuals 3 Years And Above [id number] 61328 Given 08/17/2011 Influenza Vaccin e (Fluzone) 3Yrs Of Age Or Older Medicare Plans 28571 Given 08/05/2010 Pneumococcal Immunization [id number] 50885 Given 08/05/2010 Influenza Virus Vac. Split Virus Individuals 3 Years And Above [id number] 68384 Given 08/09/2009 Influenza Virus Vac. Split Virus Individuals 3 Years And Above [id number] 72580 Given 09/02/2008 Influenza Virus Vac. Split Virus Individuals 3 Years And Above [id number] 66368 Given 2007 Influenza Virus Vac. Split Virus Individuals 3 Years And Above 74959 Given 2007 Influenza Virus Vac. Split Virus Individuals 3 Years And Above [id number] 56619 Given 08/20/2006 Influenza Virus Vac. Split Virus Individuals 3 Years And Above 76525 Given 09/26/2004 Pneumococcal Immunization 53777 Given 09/30/2002 Influenza Virus Vac. Split Virus Individuals 3 Years And Above 06386 Given 09/17/2001 Influenza Immunization 13340 Given 11/01/2000 Influenza Immunization 96682 Given 09/20/1999 Pneumococcal Immunization 04126 Given 09/20/1999 Influenza Immunization 64394 Given 09/27/1998 Influenza Immunization 97344 Refused 08/26/2020 Influenza Virus Vaccine, Quadrivalent, Slit Virus, Im Use 3Y & Up Vital Signs Date Vital Result Comment 11/30/2020 1:20pm BP Systolic 108 mmHg BP Diastolic 64 mmHg Body Temperature 97.1 F Heart Rate 94 /min Respiratory Rate 22 /min Height 67 inches 5'7" Weight 207.00 lb [place] Body Weight 148 lb BMI (Body Mass Index) 32.4 kg/m2 O2 % BldC Oximetry 91 % with O2 @3L via nasa l cannula 08/26/2020 12:54pm BP Systolic 136 mmHg BP Diastolic 78 mmHg Body Temperature 98.2 F Heart Rate 88 /min Respiratory Rate 18 /min Height 67 inches 5'7" Weight 206.00 lb [place] Body Weight 148 lb BMI (Body Mass Index) 32.3 kg/m2 O2 % BldC Oximetry 95 % Results Test Acquired Date Facility Test Result H/L Range Note Laboratory test finding 11/30/2020 [facility] Hemoglobin A1c 7.6 % High 4.50-6.20 CBC 11/30/2020 [facility] WBC 9.4 10E3/uL 4.1 - 10.9 1 RBC 4.69 10E6/uL 4.20 - 6.30 HGB 10.7 g/dL Low 12.0 - 18.0 HCT 38.9 % 37.0 - 51.0 MCV 82.9 fL 80.0 - 97.0 MCH 22.8 pg Low 26.0 - 32.0 MCHC 27.5 g/dL Low 31.0 - 36.0 PLT 323 10E3/uL 140 - 440 RDW-CV 16.0 % High 11.5 - 14.5 Lym% 17.3 % 10.0 - 58.5 Neut% 72.2 % 37.0 - 92.0 MXD% 10.5 % 0.1 - 24.0 Lym# 1.6 10E3/uL 0.6 - 4.1 Neut# 6.8 % 2.0 - 7.8 MXD# 1.0 10E3/uL 0.0 - 1.8 MPV 11.2 fL 9.0 - 13.0 Laboratory test finding 11/30/2020 [facility] CK 57 U/L 39 - 308 CMP 11/30/2020 [facility] Glu 118 mg/dL High 70 - 110 BUN 29 mg/dL High 8 - 23 Creat 0.6 mg/dL Low 0.7 - 1.2 BUN/Creatinine Ratio 44.2 CALC Na 140 mmol/L 136 - 145 K 4.3 mmol/L 3.5 - 5.1 CL 99.1 mmol/L 98.0 - 107.0 Co2 31.4 mmol/L High 22.0 - 29.0 CA 9.0 mg/dL 8.6 - 10.2 TP 6.5 g/dL Low 6.6 - 8.7 Alb 4.0 g/dL 3.5 - 5.2 A/G Ratio 1.6 CALC Globulin 2.5 CALC Alp 89.8 U/L 40 - 129 Alt (SGPT) 7 U/L 0 - 41 Ast (Sgot) 11 U/L 0 - 40 Tbili 0.23 mg/dL 0.0 - 1.2 Osmolality-Calculated 285.4 CALC Anion Gap 13 mmol/L eGFR 112 # Calc 2 eGFR Non-Afr. Trinidadian 97 # Calc 3 Lipid Panel 11/30/2020 [facility] Chol 141 mg/dL 0 - 200 Trig 152 mg/dL 35 - 200 HDL 49 mg/dL 35 - 55 LDL_C 62 Calc Low 75 - 129 Cho/HDL Ratio 2.9 CALC Laboratory test finding 08/26/2020 [facility] Hemoglobin A1c 7.2 % High 4.50-6.20 U/A DIP [facility] 08/[facility] Color Urine YELLOW Yellow Appearance CLEAR Clear Specific [place] 1.025 1.00-1.03 PH Urine 7.0 5.0-8.0 Glucose Urine NEG Negative Bilirubin Urine NEG Negative Ketones TRACE Negative Blood Urine NEG Negative Protein Urine NEG Negative Urobilinogen .2 EU/dl 0.2-1.0 Nitrite NEG Negative Leukocytes NEG Negative CBC 08/26/2020 [facility] WBC 8.6 10E3/uL 4.1 - 10.9 RBC 4.49 10E6/uL 4.20 - 6.30 HGB 11.7 g/dL Low 12.0 - 18.0 HCT 38.7 % 37.0 - 51.0 MCV 86.2 fL 80.0 - 97.0 MCH 26.1 pg 26.0 - 32.0 MCHC 30.2 g/dL Low 31.0 - 36.0 PLT 303 10E3/uL 140 - 440 RDW-CV 15.3 % High 11.5 - 14.5 Lym% 17.2 % 10.0 - 58.5 Neut% 71.8 % 37.0 - 92.0 MXD% 11.0 % 0.1 - 24.0 Lym# 1.5 10E3/uL 0.6 - 4.1 Neut# 6.2 % 2.0 - 7.8 MXD# 0.9 10E3/uL 0.0 - 1.8 MPV 10.6 fL 9.0 - 13.0 Laboratory test finding 08/26/2020 [facility] CK 70 U/L 39 - 308 CMP 08/26/2020 [facility] Glu 144 mg/dL High 70 - 110 BUN 24 mg/dL High 8 - 23 Creat 0.7 mg/dL 0.7 - 1.2 BUN/Creatinine Ratio 36.1 CALC Na 141 mmol/L 136 - 145 K 4.4 mmol/L 3.5 - 5.1 CL 99.1 mmol/L 98.0 - 107.0 Co2 30.2 mmol/L High 22.0 - 29.0 CA 9.1 mg/dL 8.6 - 10.2 TP 6.2 g/dL Low 6.6 - 8.7 Alb 3.9 g/dL 3.5 - 5.2 A/G Ratio 1.8 CALC Globulin 2.2 CALC Alp 80.8 U/L 40 - 129 Alt (SGPT) 9 U/L 0 - 41 Ast (Sgot) 11 U/L 0 - 40 Tbili 0.22 mg/dL 0.0 - 1.2 Osmolality-Calculated 287.3 CALC Anion Gap 16 mmol/L eGFR 106 # Calc 4 eGFR Non-Afr. Trinidadian 92 # Calc 5 Lipid Panel 08/26/2020 [facility] Chol 141 mg/dL 0 - 200 Trig 163 mg/dL 35 - 200 HDL 44 mg/dL 35 - 55 LDL_C 65 Calc Low 75 - 129 Cho/HDL Ratio 3.2 CALC 1 NORMAL RANGES Age WBC RBC HGB HCT MCV PLT Adult M 4.1-10.9 4.20-6.30 12.0-18.0 37.0-51.0 80-97 140-440 Adult F 4.1-10.9 4.04-5.48 12.0-18.0 37.0-51.0 80-97 140-440 0 -1 Yr 5.0-20.0 3.9-5.9 15-18 MV: 44 MV: 91 MV: 277 2-9 Yr. 6.0-17.0 3.8-5.4 11-13 MV: 37 MV: 78 MV: 300 10 Yrs. 5.0-13.0 3.8-5.4 12-15 MV: 39 MV: 80 MV: 250 NOTE: * FOR ADULT BLACK MALES AND FEMALES, NORMAL WBC IS 2.9-7.7 K/ML * FOR ADULT BLACK MALES AND FEMALES, NORMAL RBC,HGB, AND HCT IS 5% LESS SOURCE FOR DATA: [employer] 1800 OPERATION MANUAL( AUTOMATED BLOOD COUNTS AND DIFF.) APPENDIX B-3 CHRONIC KIDNEY DISEASE STAGING PER NKF: MALE GFR INTERPRETATION: 20-49 YRS: >60 mL/min Normal 50-59 YRS: >56 mL/min Normal 60-69 YRS: >49 mL/min Normal 70-79 YRS: >42 mL/min Normal 80 and above >35 mL/min Normal FEMALE GRF INTERPRETATION: 20-39 YRS: >60 mL/min Normal 40-49 YRS: >58 mL/min Normal 50-59 YRS: >51 mL/min Normal 60-69 YRS: >45 mL/min Normal 70-79 YRS: >39 mL/min Normal 80 and above >32 mL/min NormalCLASSIFICATION CHOLESTEROL FOR ADULTS CHILDREN/ADOLESCENTS* DESIRABLE: <200 MG/DL <170 MG/DL BORDER-LINE HIGH RISK: 200-239 MG/DL 170-199 MG/DL HIGH RISK: >240 MG/DL >200 MG/DL CLASS. FOR PRIMARY LDL CHOL PREVENTION: LDL CHOL-CHILD/ADOLESCENTS* DESIRABLE: <130 MG/DL <110 MG/DL BORDERLINE-HIGH RISK: 130-159 MG/DL 110-129 MG/DL HIGH RISK: >160 MG/DL >130 MG/DL *CHILDREN AND ADOLESCENTS REPRESENTS INDIVIDUALA AGED 2-19 YEARS EXCLUSIVE. 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 I73.89 Other specified peripheral v ascular diseases I50.32 Chronic diastolic (congestiv e) heart failure Office Visit 08/26/2020 12:45p [place] [facility] Jayson Meyer, FAAFP I10 Essential (primary) hypertension E78.5 Hyperlipidemia, unspecified J44.9 Chronic obstructive pulmonar y disease, unspecified Z79.84 detention (current) use of o ral hypoglycemic drugs E11.9 Type 2 diabetes mellitus wit hout complications I73.89 Other specified peripheral v ascular diseases I50.32 Chronic diastolic (congestiv e) heart failure Assessments Date Code Description Provider 11/30/2020 I10 Essential (primary) hypertension Hesham Day D.O., FAAFP 11/30/2020 E78.5 Hyperlipidemia, unspecified Zain Day D.O., FAAFP 11/30/2020 J44.9 Chronic obstructive pulmonary di sease, unspecified Hesham Day D.O., FAAFP 11/30/2020 E11.9 Type 2 diabetes mellitus without complications Hesham Day D.O., FAAFP 11/30/2020 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 08/26/2020 I10 Essential (primary) hypertension Hesham Day D.O., FAAFP 08/26/2020 E78.5 Hyperlipidemia, unspecified Zain Day D.O., FAAFP 08/26/2020 J44.9 Chronic obstructive pulmonary di sease, unspecified Hesham Day D.O., 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 08/26/2020 I73.89 Other specified peripheral vascu lar diseases Hesham Day D.O., [facility] 08/26/2020 I50.32 Chronic diastolic (congestive) h eart failure Hesham Day D.O., FAAFP Plan of Treatment Future Appointment(s):* 03/01/2021 1:00 pm - Hesham Day D.O., FAAFP at [place] [facility] Functional Status Description No Information Available Mental Status Description No Information Available Referrals Description No Information Available
--- OUTSIDE RECORDS SUMMARY | 2020-12-14 15:54 | CCD | Continuity of Care Document ---
Author Author Lalo DAY D.O. Organization Unknown Address [address] [place] [id number] Phone [phone] Problems Active Problems Provider Date Chronic obstructive [...] SIG Qnty Indications Ordering Provide r Date Pravastatin Sodium 20mg Tablets Take 1 Tablet By Mouth Every Day For Cholesterol. Maximum Daily Dose Is 1. 90tabs Hesham Day D.O., FAAFP 04/08/2020 Levalbuterol HCL 1.25mg/3ML Nebuli zer Use 1 Vial Via Nebulizer Three Times Daily 225units Hesham Day D.O., FAAFP 01/30/2020 Furosemide 40mg Tablets Take 1 Tablet By Mouth Twice Daily 180tabs Hesham Day D.O., FAAFP 1 Shingrix 50mcg Suspension Rec 1 intramuscular [...] times daily both eyes Hesham Day D.O., FAA FP 12/26/2017 Prevnar 13 Suspension as directed Done Hesham Day D.O., FAAFP 08/30/2017 Pantoprazole Sodium 40mg Tablets D R [...] a day 3units Hesham Day D.O., FAAFP Januvia 100mg Tablets 1/2 tab by mouth every day 56tabs Hesham Day D.O., FAAFP Ventolin HFA 108(90Base) mcg/Act A erosol ii puffs every 4-6 hours as needed 3units Hesham gonzalez D.O., FAAFP 12/01/2014 Contour Blood Glucose Test Strips Strips use to test blood sugar twice daily as needed as directed 100units E1 1.9 [facility]2014 Blood Glucose Test Strips test blood glucose daily (E11.9) 100units E11.9 Hesham Day D.O., [facility] 06/24/2014 Asa 81 Capsules 1 tab daily [...] Subcutaneous Or Intramuscular Injection Hesham Day D.O., [facility] 2007 Injection Subcutaneous Or Intramuscular Injection Hesham Day D.O., [facility] 08/20/2006 Injection (SC)/(Im) Injection Trino Zamora M.D. 09/30/2002 Immunizations CPT Code Status Date Vaccine Lot # [id number] Given 07/31/2019 Influenza Virus Vaccine, Quadrivalent, Slit Virus, Im Use 3Y & Up [id number] 89443 Given 09/06/2018 Influenza Virus Vaccine, Quadrivalent, Slit Virus, Im Use 3Y & Up [id number] 22298 Given 09/17/2015 Pneumococcal Immunization L0 15519 91580 Given 09/02/2015 Influenza Vaccin e (Fluzone) 3Yrs Of Age Or Older Medicare Plans [id number] Q2037 Given 08/20/2014 Influenza Vaccin e (Fluvirin) 3Yrs Of Age Or Older Medicare Plans 76379 Given 08/20/2014 Influenza Virus Vac. Split Virus Individuals 3 Years And Above [id number] 18426 Given 08/21/2013 Influenza Vaccin e (Fluzone) 3Yrs Of Age Or Older Medicare Plans 80229 Given 08/21/2013 Influenza Virus Vac. Split Virus Individuals 3 Years And Above [id number] 33646 Given 08/20/2012 Influenza Virus Vac. Split Virus Individuals 3 Years And Above [id number] 23331 Given 08/20/2012 Influenza Vaccin e (Fluzone) 3Yrs Of Age Or Older Medicare Plans 72312 Given 08/17/2011 Influenza Virus Vac. Split Virus Individuals 3 Years And Above [id number] 41438 Given 08/17/2011 Influenza Vaccin e (Fluzone) 3Yrs Of Age Or Older Medicare Plans 73656 Given 08/05/2010 Pneumococcal Immunization [id number] 95156 Given 08/05/2010 Influenza Virus Vac. Split Virus Individuals 3 Years And Above [id number] 97800 Given 08/09/2009 Influenza Virus Vac. Split Virus Individuals 3 Years And Above [id number] 50278 Given 09/02/2008 Influenza Virus Vac. Split Virus Individuals 3 Years And Above [id number] 60721 Given 2007 Influenza Virus Vac. Split Virus Individuals 3 Years And Above 09348 Given 2007 Influenza Virus Vac. Split Virus Individuals 3 Years And Above [id number] 39996 Given 08/20/2006 Influenza Virus Vac. Split Virus Individuals 3 Years And Above 72171 Given 09/26/2004 Pneumococcal Immunization 66979 Given 09/30/2002 Influenza Virus Vac. Split Virus Individuals 3 Years And Above 84731 Given 09/17/2001 Influenza Immunization 32148 Given 11/01/2000 Influenza Immunization 51466 Given 09/20/1999 Pneumococcal Immunization 57713 Given 09/20/1999 Influenza Immunization 54496 Given 09/27/1998 Influenza Immunization 35179 Refused 08/26/2020 Influenza Virus Vaccine, Quadrivalent, Slit Virus, Im Use 3Y & Up Vital Signs Date Vital Result Comment 11/30/2020 1:20pm BP Systolic 108 mmHg BP Diastolic 64 mmHg Body Temperature 97.1 F Heart Rate 94 /min Respiratory Rate 22 /min Height 67 inches 5'7" Weight 207.00 lb [place] Body Weight 148 lb BMI (Body Mass Index) 32.4 kg/m2 O2 % BldC Oximetry 91 % with O2 @3L via nasa l cannula 08/26/2020 12:54pm BP Systolic 136 mmHg BP Diastolic 78 mmHg Body Temperature 98.2 F Heart Rate 88 /min Respiratory Rate 18 /min Height 67 inches 5'7" Weight 206.00 lb [place] Body Weight 148 lb BMI (Body Mass Index) 32.3 kg/m2 O2 % BldC Oximetry 95 % Results Test Acquired Date Facility Test Result H/L Range Note Laboratory test finding 11/30/2020 [facility] CK <pending> Laboratory test finding 11/30/2020 [facility] Hemoglobin A1c <pending> % 4.50-6.20 U/A DIP A 11/[facility] Color Urine <pending> Yellow Appearance <pending> Clear Specific [place] <pending> 1.00-1.03 PH Urine <pending> 5.0-8.0 Glucose Urine <pending> Negative Bilirubin Urine <pending> Negative Ketones <pending> Negative Blood Urine <pending> Negative Protein Urine <pending> Negative Urobilinogen <pending> EU/dl 0.2-1.0 Nitrite <pending> Negative Leukocytes <pending> Negative Comment 1 <pending> Laboratory test finding 08/26/2020 [facility] Hemoglobin A1c 7.2 % High 4.50-6.20 U/A DIP FPA 08/26/2020 [facility] Color Urine YELLOW Yellow Appearance CLEAR Clear Specific [place] 1.025 1.00-1.03 PH Urine 7.0 5.0-8.0 Glucose Urine NEG Negative Bilirubin Urine NEG Negative Ketones TRACE Negative Blood Urine NEG Negative Protein Urine NEG Negative Urobilinogen .2 EU/dl 0.2-1.0 Nitrite NEG Negative Leukocytes NEG Negative CBC 08/26/2020 [facility] WBC 8.6 10E3/uL 4.1 - 10.9 1 RBC 4.49 10E6/uL 4.20 - 6.30 HGB [...] Gap 16 mmol/L eGFR 106 # Calc 2 eGFR Non-Afr. [place]inamese 92 # Calc 3 Lipid Panel 08/26/2020 [facility] Chol 141 mg/dL [...] HCT IS 5% LESS SOURCE FOR DATA: [employer] 1800 OPERATION MANUAL( AUTOMATED BLOOD COUNTS AND [...] 2-19 YEARS EXCLUSIVE. 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 I73.89 Other specified peripheral v ascular diseases I50.32 Chronic diastolic (congestiv e) heart failure Office Visit 08/26/2020 12:45p [place] Jayson Meyer, FAAFP I10 Essential (primary) hypertension E78.5 Hyperlipidemia, unspecified J44.9 Chronic obstructive pulmonar y disease, unspecified 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 E11.9 Type 2 diabetes mellitus wit hout complications I73.89 Other specified peripheral v ascular diseases I50.32 Chronic diastolic (congestiv e) heart failure Assessments Date Code Description Provider 11/30/2020 I10 Essential (primary) hypertension Hesham Day D.O., [facility] 11/30/2020 E78.5 Hyperlipidemia, unspecified Zain Day D.O., [facility] 11/30/2020 J44.9 Chronic obstructive pulmonary di sease, unspecified Hesham Day D.O., [facility] 11/30/2020 E11.9 Type 2 diabetes mellitus without complications Hesham Day D.O., [facility] 11/30/2020 Z79.84 [facility] (current) use of oral hypoglycemic drugs Hesham Day D.O., [facility] 11/30/2020 I73.89 Other specified peripheral vascu lar diseases Hesham Day D.O., [facility] 11/30/2020 I50.32 Chronic diastolic (congestive) h eart failure Hesham Day D.O., [facility] 08/26/2020 I10 Essential (primary) hypertension Hesham Day D.O., [facility] 08/26/2020 E78.5 Hyperlipidemia, unspecified Zain Day D.O., [facility] 08/26/2020 J44.9 Chronic obstructive pulmonary di sease, unspecified Hesham Day D.O., [facility] 08/26/2020 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 Hesham Day D.O., [facility] 08/26/2020 E11.9 Type 2 diabetes mellitus without complications Hesham Day D.O., [facility] 08/26/2020 I73.89 Other specified peripheral vascu lar diseases Hesham Day D.O., [facility] 08/26/2020 I50.32 Chronic diastolic (congestive) h eart failure Hesham Day D.O., [facility] Plan of Treatment Future Appointment(s):* 03/01/2021 1:00 pm - Hesham Day D.O., LISAFP at [facility] [place] [facility] [place] Functional Status Description No Information Available Mental Status Description No Information Available Referrals Description No Information Available
--- OUTSIDE RECORDS SUMMARY | 2020-12-14 15:54 | CCD ---
Author Author [facility] Organization [facility] Address Unknown Phone Unavailable Care Team Providers Care Associate Account Executive Name Role Phone Barraclough, Rima PA Unavailable Unavailable Barraclough, Rima PA Unavailable Unavailable Barraclough, Rima PA Unavailable Unavailable Barraclough, Rima PA Unavailable Unavailable Barraclough, Rima PA Unavailable Unavailable Barraclough, Rima PA Unavailable Unavailable Fish, J Hesham Unavailable Unavailable Fish, J Hesham Unavailable Unavailable Fish, J Hesham Unavailable Unavailable Fish, J Hesham Unavailable Unavailable Fish, J Hesham Unavailable Unavailable Fish, J Hesham Unavailable Unavailable Fish, J Hesham Unavailable Unavailable Fish, J Hesham Unavailable Unavailable Fish, J Hesham Unavailable Unavailable Fish, J Hesham Unavailable Unavailable Fish, J Hesham Unavailable Unavailable Fish, J Hesham Unavailable Unavailable Fish, J Hesham Unavailable Unavailable Fish, J Hesham Unavailable Unavailable Fish, J Hesham Unavailable Unavailable Fish, J Hesham Unavailable Unavailable Fish, J Hesham Unavailable Unavailable Fish, J Hesham Unavailable Unavailable Fish, J Hesham Unavailable Unavailable Fish, J Hesham Unavailable Unavailable Fish, J Hesham Unavailable Unavailable Fish, J Hesham Unavailable Unavailable Fish, J Hesham Unavailable Unavailable Fish, J Hesham Unavailable Unavailable Fish, J Ehsham Unavailable Unavailable Fish, J Hesham Unavailable Unavailable Fish, J Hesham Unavailable Unavailable Fish, J Hesham Unavailable Unavailable Fish, J Hesham Unavailable Unavailable Fish, J Hesham Unavailable Unavailable Fish, J Hesham Unavailable Unavailable Fish, J Hesham Unavailable Unavailable Fish, J Hesham Unavailable Unavailable Fish, J Hesham Unavailable Unavailable Fish, J Hesham Unavailable Unavailable Fish, J Hesham Unavailable Unavailable Fish, J Hesham Unavailable Unavailable Fish, J Hesham Unavailable Unavailable Fish, J Hesham Unavailable Unavailable Fish, J Hesham Unavailable Unavailable Fish, J Hesham Unavailable Unavailable Fish, J Hesham Unavailable Unavailable Fish, J Hesham Unavailable Unavailable Fish, J Hesham Unavailable Unavailable Fish, J Hesham Unavailable Unavailable Fish, J Hesham Unavailable Unavailable Fish, J Hesham Unavailable Unavailable Fish, J Hesham Unavailable Unavailable Fish, J Hesham Unavailable Unavailable Fish, J Hesham Unavailable Unavailable Fish, J Hesham Unavailable Unavailable Fish, J Hesham Unavailable Unavailable Fish, J Hesham Unavailable Unavailable Fish, J Hesham Unavailable Unavailable Fish, J Hesham Unavailable Unavailable Fish, J Hesham Unavailable Unavailable Fish, J Hesham Unavailable Unavailable Fish, J Hesham Unavailable Unavailable Fish, J Hesham Unavailable Unavailable Fish, J Hesham Unavailable Unavailable Fish, J Hesham Unavailable Unavailable Fish, J Hesham Unavailable Unavailable Fish, J Hesham Unavailable Unavailable Fish, J Hesham Unavailable Unavailable Fish, J Hesham Unavailable Unavailable Fish, J Hesham Unavailable Unavailable Fish, J Hesham Unavailable Unavailable Fish, J Hesham Unavailable Unavailable Fish, J Hesham Unavailable Unavailable Fish, J Hesham Unavailable Unavailable Fish, J Hesham Unavailable Unavailable Fish, J Hesham Unavailable Unavailable Fish, J Hesham Unavailable Unavailable Fish, J Hesham Unavailable Unavailable Fish, J Hesham Unavailable Unavailable Fish, J Hesham Unavailable Unavailable Fish, J Hesham Unavailable Unavailable Fish, J Hesham Unavailable Unavailable Fish, J Hesham Unavailable Unavailable Fish, J Hesham Unavailable Unavailable Fish, J Hesham Unavailable Unavailable Fish, J Hesham Unavailable Unavailable Fish, J Hesham Unavailable Unavailable Fish, J Hesham Unavailable Unavailable Fish, J Hesham Unavailable Unavailable Jemima Smallwood MOTTLE LAY UP OPERATOR Unavailable Unavailable Selin, N Adonis MOTTLE LAY UP OPERATOR Unavailable Unavailable [place], N Adonis MOTTLE LAY UP OPERATOR Unavailable Unavailable [place], N Adonis MOTTLE LAY UP OPERATOR Unavailable Unavailable Selin, N Adonis MOTTLE LAY UP OPERATOR Unavailable Unavailable Selin, N Adonis MOTTLE LAY UP OPERATOR Unavailable Unavailable Selin, N Adonis MOTTLE LAY UP OPERATOR Unavailable Unavailable Selin, N Adonis MOTTLE LAY UP OPERATOR Unavailable Unavailable Selin, N Adonis MOTTLE LAY UP OPERATOR Unavailable Unavailable Selin, N Adonis MOTTLE LAY UP OPERATOR Unavailable Unavailable [place], N Adonis MOTTLE LAY UP OPERATOR Unavailable Unavailable Selin, N Adonis MOTTLE LAY UP OPERATOR Unavailable Unavailable Selin, N Adonis MOTTLE LAY UP OPERATOR Unavailable Unavailable Selin, N Adonis MOTTLE LAY UP OPERATOR Unavailable Unavailable [place], N Adonis MOTTLE LAY UP OPERATOR Unavailable Unavailable [place], N Adoins MOTTLE LAY UP OPERATOR Unavailable Unavailable Selin, N Adonis MOTTLE LAY UP OPERATOR Unavailable Unavailable [place], N Adonis MOTTLE LAY UP OPERATOR Unavailable Unavailable Selin, N Adonis MOTTLE LAY UP OPERATOR Unavailable Unavailable Selin, N Adonis MOTTLE LAY UP OPERATOR Unavailable Unavailable Selin, N Adonis MOTTLE LAY UP OPERATOR Unavailable Unavailable [place], N Adonis MOTTLE LAY UP OPERATOR Unavailable Unavailable Selin, N Adonis MOTTLE LAY UP OPERATOR Unavailable Unavailable Selin, N Adonis MOTTLE LAY UP OPERATOR Unavailable Unavailable [place], N Adonis MOTTLE LAY UP OPERATOR Unavailable Unavailable Selin, N Adonis MOTTLE LAY UP OPERATOR Unavailable Unavailable Selin, N Adonis MOTTLE LAY UP OPERATOR Unavailable Unavailable [place], N Adonis MOTTLE LAY UP OPERATOR Unavailable Unavailable Selin, N Adonis MOTTLE LAY UP OPERATOR Unavailable Unavailable [place], N Adonis MOTTLE LAY UP OPERATOR Unavailable Unavailable Selin, N Adonis MOTTLE LAY UP OPERATOR Unavailable Unavailable James Joy MD Unavailable Unavailable James Joy MD Unavailable Unavailable James Joy MD Unavailable Unavailable James Joy MD Unavailable Unavailable James Joy MD Unavailable Unavailable James Joy MD Unavailable Unavailable James Joy MD Unavailable Unavailable James Joy MD Unavailable Unavailable James Joy MD Unavailable Unavailable James Joy MD Unavailable Unavailable James Joy MD Unavailable Unavailable James Joy MD Unavailable Unavailable James Joy MD Unavailable Unavailable James Joy MD Unavailable Unavailable James Joy MD Unavailable Unavailable James Joy MD Unavailable Unavailable James Joy MD Unavailable Unavailable James Joy MD Unavailable Unavailable James Joy MD Unavailable Unavailable James Joy MD Unavailable Unavailable James Joy MD Unavailable Unavailable James Joy MD Unavailable Unavailable James Joy MD Unavailable Unavailable James Joy MD Unavailable Unavailable James Joy MD Unavailable Unavailable James Joy MD Unavailable Unavailable James Joy MD Unavailable Unavailable James Joy MD Unavailable Unavailable James Joy MD Unavailable Unavailable James Joy MD Unavailable Unavailable James Joy MD Unavailable Unavailable James Joy MD Unavailable Unavailable James Joy MD Unavailable Unavailable Joy, James Alvaro MD Unavailable Unavailable Joy, James John MD Unavailable Unavailable Joy, James John MD Unavailable Unavailable Joy, James John MD Unavailable Unavailable Joy, James John MD Unavailable Unavailable Joy, James John MD Unavailable Unavailable Joy, James Alvaro MD Unavailable Unavailable Joy, James Alvaro MD Unavailable Unavailable Joy, James Alvaro MD Unavailable Unavailable Joy, James Alvaro MD Unavailable Unavailable Joy, James Alvaro MD Unavailable Unavailable Joy, James Alvaro MD Unavailable Unavailable Joy, James Alvaro MD Unavailable Unavailable Joy, James Alvaro MD Unavailable Unavailable Joy, James John MD Unavailable Unavailable Joy, James Alvaro MD Unavailable Unavailable Joy, James John MD Unavailable Unavailable Joy, James John MD Unavailable Unavailable Re-disclosure Warning The records that you are about to access may contain information from federally-assisted alcohol or drug abuse programs. If such information is present, then the following federally mandated warning applies: This information has been disclosed to you from records protected by federal confidentiality rules (42 CFR part 2). The federal rules prohibit you from making any further disclosure of this information unless further disclosure is expressly permitted by the written consent of the person to whom it pertains or as otherwise permitted by 42 CFR part 2. A general authorization for the release of medical or other information is NOT sufficient for this purpose. The Federal rules restrict any use of the information to criminally investigate or prosecute any alcohol or drug abuse patient.The records that you are about to access may contain highly sensitive health information, the redisclosure of which is protected by Article 27-F of the [facility] Public Health law. If you continue you may have access to information: Regarding HIV / AIDS; Provided by facilities licensed or operated by the [facility] Office of Mental Health; or Provided by the [facility] Office for People With Developmental Disabilities. If such information is present, then the following [facility] mandated warning applies: This information has been disclosed to you from confidential records which are protected by state law. State law prohibits you from making any further disclosure of this information without the specific written consent of the person to whom it pertains, or as otherwise permitted by law. Any unauthorized further disclosure in violation of state law may result in a fine or penitentiary sentence or both. A general authorization for the release of medical or other information is NOT sufficient authorization for further disc losure. Family History Family Member Name Family Member Gender Family Member Status Date o f Status Description Data Source(s) Unknown Male Problem [facility] ([facility] () Unknown Female Problem [facility] ([facility] Unknown Unknown Problem [facility] ([facility] Unknown Unknown Problem [facility] ([facility]) father [facility] Female Problem [facility] ([facility]) Unknown Female Problem [facility] ([facility]) Unknown Female Problem [facility] ([facility]) Unknown Female Problem [facility] ([facility]) Encounters Encounter Providers Location Date Indications Data Source(s ) Outpatient Attender: [facility] Office 11/30/2020 12:15:0 0 PM EST [facility] ([facility] Outpatient Attender: Adonis ARMENTASJMARITO 020 12:00:00 AM EST - 09/13/2020 01:21:30 PM EST [facility] Outpatient Attender: [facility] Office 08/26/2020 12:45:0 0 PM EDT [facility] ([facility] Outpatient Attender: [facility] Office 05/13/2020 02:30:0 0 PM EDT [facility] ([facility] Outpatient Referrer: Alvaro Joy MD 04/01/2020 05:05:0 0 PM EDT [facility] Outpatient Referrer: Alvaro Joy MD 04/01/2020 01:53:0 0 PM EDT [facility] Outpatient Referrer: Alvaro Joy MD 03/31/2020 03:47:0 0 PM EDT [facility] Outpatient Referrer: Alvaro Joy MD 03/31/2020 12:14:0 0 PM EDT [facility] Outpatient Referrer: Alvaro Joy MD 03/31/2020 11:45:0 0 AM EDT [facility] Outpatient Referrer: Alvaro Joy MD 03/31/2020 11:26:0 0 AM EDT [facility] Outpatient Attender: Adonis HECK-SJPMookieDIANE 020 01:35:48 PM EDT - 03/09/2020 03:27:04 PM EDT [facility] Outpatient Referrer: Alvaro Joy MD 02/26/2020 10:02:0 0 AM EDT [facility] Outpatient Referrer: Alvaro Joy MD 02/26/2020 10:00:0 0 AM EDT [facility] Outpatient Attender: Hesham Torres [facility] Office 02/12/2020 01:45:0 0 PM EDT [facility] ([facility] 01:00:00 PM EDT [facility] Outpatient Attender: Rima Samir KATE [facility] 01/30/2020 03:45:00 PM EDT [facility] ([facility] Outpatient Attender: Hesham Fish [facility] Office 10/28/2019 10:30:0 0 AM EST [facility] ([facility] Immunizations Vaccine Date Status Description Data Source(s) New in 2012. IIV4 08/26/2020 12:54:00 PM EDT completed [facility] ([facility] Medications Medication Brand Name Start Date Product Form Dose Route Admi nistrative Instructions Pharmacy Instructions Status Indications Reaction Description Data Source(s) sitagliptin 50 MG Oral Tablet [Novuvia] Januvia 12/01/2020 12:00:0 0 AM EST ORAL active [facility] ([facility] Pravastatin Sodium 20 MG Oral Tablet Pravastatin Sodium 12:00:00 AM EDT active [facility] ([facility] Levalbuterol 0.417 MG/ML Inhalant Solution Levalbuterol HCL 01/30/2020 12:00:00 AM EDT active [facility] ([facility] Prednisone 20 MG Oral Tablet Prednisone 01/30/2020 12:00:00 AM EDT completed [facility] ([facility] cefdinir 300 MG Oral Capsule Cefdinir 01/30/2020 12:00:00 AM EDT completed [facility] ([facility] Injection (SC)/(Im) 01/30/2020 12:00:00 AM EDT completed [facility] ([facility] Medication administered onsite Insurance Providers Payer name Policy type / Coverage type Policy ID Covered alliance party ID Covered alliance party's relationship to rashid Policy Rashid Plan Information MEDICARE [id number] SP [id number] A AARP HEALTH CARE OPTIONS [id number] SP [id number] [facility] [id number] MEDICARE [id number] MEDICARE [id number] Yuly [id number] [facility] [id number] Yuly [id number] MEDICARE C [id number] S [id number] AARP O [id number] S [id number] Aarp Medigap Part B [id number] Self [id number] Medicare Medicare Primary [id number] Self [id number] MEDICARE [id number] Yluy [id number] A Aarp Medigap Part B [id number] Self [id number] Medicare Medicare Primary [id number] Self [id number] Aarp Medigap Part B [id number] Self [id number] Medicare Medicare Primary [id number] Self [id number] Aarp Medigap Part B [id number] Self [id number] Medicare Medicare Primary [id number] Self [id number] AARP HEALTH CARE OPTIONS [id number] SP [id number] MEDICARE [id number] SP [id number] A Aarp Medigap Part B [id number] Self [id number] Medicare [place] Medicare Primary [id number] Self [id number] MEDICARE C [id number] S [id number] A Aarp Medigap Part B [id number] Self [id number] Medicare Medicare Primary [id number] Self [id number] Aarp/ Health Care Options Medigap Part B [id number] Self [id number] Medicare - NGS Medicare Primary [id number] Self [id number] Aarp Healthcare Options Medigap Part B [id number] Self [id number] Medicare Dme Supplies Medigap Part B [id number] Self [id number] [place] Primary [id number] Self [id number] Aarp Healthcare Options Medigap Part B [id number] Self [id number] Medicare Dme Supplies Medigap Part B [id number] Self [id number] [place] Primary [id number] Self [id number] Aarp Healthcare Options Medigap Part B [id number] Self [id number] Medicare Dme Supplies Medigap Part B [id number] Self [id number] [place] Primary [id number] Self [id number] Aarp/ Health Care Options Medigap Part B [id number] Self [id number] Medicare [facility] Medicare Primary [id number] Self [id number] Aarp Medigap Part B [id number] Self [id number] Medicare Medicare Primary [id number] Self [id number] Aarp Medigap Part B [id number] Self [id number] Medicare Medicare Primary [id number] Self [id number] Aarp Medigap Part B [id number] Self [id number] Medicare Medicare Primary [id number] Self [id number] MEDICARE [id number] SP [id number] A Aarp Health Care Options Medigap Part B [id number] Self [id number] Medicare [place] [employer] Medicare Primary [id number] Self [id number] MEDICARE [id number] SP [id number] MEDICARE C [id number] S [id number] Aarp/ Health Care Options Medigap Part B [id number] Self [id number] Medicare [facility] Medicare Primary [id number] Self [id number] Aarp Medigap Part B Self Medicare Medicare Primary Self Aarp Health Care Options Medigap Part B Self Medicare [place] [employer] Medicare Primary Self Medicare Dme Supplies Medigap Part B Self Aarp Healthcare Options Medigap Part B Self [place] Primary Self AARP UHC Supplemental F [id number] SELF [id number] Medicare [id number] SELF [id number] A AARP HEALTH CARE OPTIONS-O/P [id number] 18 [id number] MEDICARE -O/P [id number] 18 [id number] AARP HEALTH CARE OPTIONS UNAVAILABLE UNAVAILABLE Problems, Conditions, and Diagnoses Code Display Name Description Problem Type Effective Dates Data Source(s) I10 Essential (primary) hypertension Essential (primary) h ypertension Diagnosis 09/13/2020 12:44:49 PM EST [facility] 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 Chronic combined systolic (congestive) a Diagnosis 09/13/2020 12:44:49 PM EST [facility] E78.00 Pure hypercholesterolemia, unspecified P ure hypercholesterolemia, unspecified Diagnosis 09/13/2020 12:44:49 PM EST [facility] I48.0 Paroxysmal atrial fibrillation Paroxysmal atrial fibri llation Diagnosis 09/13/2020 12:44:49 PM EST [facility] Surgeries/Procedures Procedure Description Date Indications Data Source(s) ECG ROUTINE ECG W/LEAST 12 LDS W/I&R POCT AMB EKG Routine 09/13/2020 1:04 PM EST Paroxysmal atrial fibrillation 09/13/2020 06:04:00 PM EST Pa roxysmal atrial fibrillation [facility] Paroxysmal atrial fibrillation DUP-SCAN LXTR ART/ARTL BPGS UNI/LMTD STUDY 09/02/2020 12:00:00 AM EDT [facility] ([facility]) DUP-SCAN LXTR ART/ARTL BPGS UNI/LMTD STUDY 09/02/2020 12:00:00 AM EDT [facility] ([facility]) Injection (SC)/(Im) 01/30/2020 12:00:00 AM EDT [facility] ([facility] Results ID Date Data Source [id number] 11/30/2020 02:11:00 PM EST [facility] Name Value Range Interpretation Code Description Data Trina rce(s) Supporting Document(s) Hemoglobin A1c/Hemoglobin.total in Blood 7.6 % 4.50-6.20 Above high normal [facility] ([facility] ID Date Data Source [id number] 11/30/2020 01:40:00 PM EST [facility] ([facility] Name Value Range Interpretation Code Description Data Trina rce(s) Supporting Document(s) Chol 141 mg/dL 0-200 [facility] NORMAL RANGES Age WBC RBC HGB HCT [...] HCT IS 5% LESS SOURCE FOR DATA: [employer] 1800 OPERATION MANUAL( AUTOMATED BLOOD COUNTS AND [...] DESIRABLE: <130 MG/DL <110 MG/DL BORDERLINE-HIGH RISK: 130- 159 MG/DL 110-129 MG/DL HIGH RISK: >160 MG/DL >130 MG/DL *CHILDREN AND ADOLESCENTS REPRESENTS INDIVIDUALA AGED 2-19 YEARS EXCLUSIVE. Trig 152 mg/dL 35-200 [facility] ([facility] NORMAL RANGES Age WBC RBC HGB HCT [...] HCT IS 5% LESS SOURCE FOR DATA: [employer] 1800 OPERATION MANUAL( AUTOMATED BLOOD COUNTS AND [...] DESIRABLE: <130 MG/DL <110 MG/DL BORDERLINE-HIGH RISK: 130- 159 MG/DL 110-129 MG/DL HIGH RISK: >160 MG/DL >130 MG/DL *CHILDREN AND ADOLESCENTS REPRESENTS INDIVIDUALA AGED 2-19 YEARS EXCLUSIVE. LDL_C 62 Calc 75-129 Below low normal [facility] ( [facility] NORMAL RANGES Age WBC RBC HGB HCT [...] HCT IS 5% LESS SOURCE FOR DATA: [employer] 1800 OPERATION MANUAL( AUTOMATED BLOOD COUNTS AND [...] DESIRABLE: <130 MG/DL <110 MG/DL BORDERLINE-HIGH RISK: 130- 159 MG/DL 110-129 MG/DL HIGH RISK: >160 MG/DL >130 MG/DL *CHILDREN AND ADOLESCENTS REPRESENTS INDIVIDUALA AGED 2-19 YEARS EXCLUSIVE. Cholesterol in HDL [Mass/volume] in Serum or Plasma 49 mg/dL 35-55 [facility] ([facility] NORMAL RANGES Age WBC RBC HGB HCT [...] HCT IS 5% LESS SOURCE FOR DATA: [employer] 1800 OPERATION MANUAL( AUTOMATED BLOOD COUNTS AND [...] DESIRABLE: <130 MG/DL <110 MG/DL BORDERLINE-HIGH RISK: 130- 159 MG/DL 110-129 MG/DL HIGH RISK: >160 MG/DL >130 MG/DL *CHILDREN AND ADOLESCENTS REPRESENTS INDIVIDUALA AGED 2-19 YEARS EXCLUSIVE. Cho/HDL Ratio 2.9 CALC [facility] ([facility] NORMAL RANGES Age WBC RBC HGB HCT [...] HCT IS 5% LESS SOURCE FOR DATA: [employer] 1800 OPERATION MANUAL( AUTOMATED BLOOD COUNTS AND [...] DESIRABLE: <130 MG/DL <110 MG/DL BORDERLINE-HIGH RISK: 130- 159 MG/DL 110-129 MG/DL HIGH RISK: >160 MG/DL >130 MG/DL *CHILDREN AND ADOLESCENTS REPRESENTS INDIVIDUALA AGED 2-19 YEARS EXCLUSIVE. ID Date Data Source [id number] 11/30/2020 01:40:00 PM EST [facility] ([facility] Name Value Range Interpretation Code Description Data Trina rce(s) Supporting Document(s) Glu 118 mg/dL 70-110 Above high normal [facility] ([facility] NORMAL RANGES Age WBC RBC HGB HCT [...] HCT IS 5% LESS SOURCE FOR DATA: [employer] 1800 OPERATION MANUAL( AUTOMATED BLOOD COUNTS AND [...] DESIRABLE: <130 MG/DL <110 MG/DL BORDERLINE-HIGH RISK: 130- 159 MG/DL 110-129 MG/DL HIGH RISK: >160 MG/DL >130 MG/DL *CHILDREN AND ADOLESCENTS REPRESENTS INDIVIDUALA AGED 2-19 YEARS EXCLUSIVE. BUN 29 mg/dL 8-23 Above high normal [facility] ([facility] NORMAL RANGES Age WBC RBC HGB HCT [...] HCT IS 5% LESS SOURCE FOR DATA: [employer] 1800 OPERATION MANUAL( AUTOMATED BLOOD COUNTS [...] DESIRABLE: <130 MG/DL <110 MG/DL BORDERLINE-HIGH RISK: 130- 159 MG/DL 110-129 MG/DL HIGH RISK: >160 MG/DL >130 MG/DL *CHILDREN AND ADOLESCENTS REPRESENTS INDIVIDUALA AGED 2-19 YEARS EXCLUSIVE. Creat 0.6 mg/dL 0.7-1.2 Below low normal [facility] ( [facility] NORMAL RANGES Age WBC RBC HGB HCT [...] HCT IS 5% LESS SOURCE FOR DATA: [employer] 1800 OPERATION MANUAL( AUTOMATED BLOOD COUNTS AND [...] DESIRABLE: <130 MG/DL <110 MG/DL BORDERLINE-HIGH RISK: 130- 159 MG/DL 110-129 MG/DL HIGH RISK: >160 MG/DL >130 MG/DL *CHILDREN AND ADOLESCENTS REPRESENTS INDIVIDUALA AGED 2-19 YEARS EXCLUSIVE. BUN/Creatinine Ratio 44.2 CALC [facility] ([facility] NORMAL RANGES Age WBC RBC HGB HCT [...] HCT IS 5% LESS SOURCE FOR DATA: [employer] 1800 OPERATION MANUAL( AUTOMATED BLOOD COUNTS AND [...] DESIRABLE: <130 MG/DL <110 MG/DL BORDERLINE-HIGH RISK: 130- 159 MG/DL 110-129 MG/DL HIGH RISK: >160 MG/DL >130 MG/DL *CHILDREN AND ADOLESCENTS REPRESENTS INDIVIDUALA AGED 2-19 YEARS EXCLUSIVE. Na 140 mmol/L 136-145 [facility] ([facility] NORMAL RANGES Age WBC RBC HGB HCT [...] HCT IS 5% LESS SOURCE FOR DATA: [employer] 1800 OPERATION MANUAL( AUTOMATED BLOOD COUNTS [...] DESIRABLE: <130 MG/DL <110 MG/DL BORDERLINE-HIGH RISK: 130- 159 MG/DL 110-129 MG/DL HIGH RISK: >160 MG/DL >130 MG/DL *CHILDREN AND ADOLESCENTS REPRESENTS INDIVIDUALA AGED 2-19 YEARS EXCLUSIVE. CL 99.1 mmol/L 98.0-107.0 [facility] ([facility] NORMAL RANGES Age WBC RBC HGB HCT [...] HCT IS 5% LESS SOURCE FOR DATA: [employer] 1800 OPERATION MANUAL( AUTOMATED BLOOD COUNTS AND [...] DESIRABLE: <130 MG/DL <110 MG/DL BORDERLINE-HIGH RISK: 130- 159 MG/DL 110-129 MG/DL HIGH RISK: >160 MG/DL >130 MG/DL *CHILDREN AND ADOLESCENTS REPRESENTS INDIVIDUALA AGED 2-19 YEARS EXCLUSIVE. K 4.3 mmol/L 3.5-5.1 [facility] ([facility] NORMAL RANGES Age WBC RBC HGB HCT [...] HCT IS 5% LESS SOURCE FOR DATA: [employer] 1800 OPERATION MANUAL( AUTOMATED BLOOD COUNTS AND [...] DESIRABLE: <130 MG/DL <110 MG/DL BORDERLINE-HIGH RISK: 130- 159 MG/DL 110-129 MG/DL HIGH RISK: >160 MG/DL >130 MG/DL *CHILDREN AND ADOLESCENTS REPRESENTS INDIVIDUALA AGED 2-19 YEARS EXCLUSIVE. CA 9.0 mg/dL 8.6-10.2 [facility] ([facility] NORMAL RANGES Age WBC RBC HGB HCT [...] HCT IS 5% LESS SOURCE FOR DATA: [employer] DYN 1800 OPERATION MANUAL( AUTOMATED BLOOD COUNTS [...] DESIRABLE: <130 MG/DL <110 MG/DL BORDERLINE-HIGH RISK: 130- 159 MG/DL 110-129 MG/DL HIGH RISK: >160 MG/DL >130 MG/DL *CHILDREN AND ADOLESCENTS REPRESENTS INDIVIDUALA AGED 2-19 YEARS EXCLUSIVE. TP 6.5 g/dL 6.6-8.7 Below low normal [facility] ( [facility] NORMAL RANGES Age WBC RBC HGB HCT [...] HCT IS 5% LESS SOURCE FOR DATA: [employer] 1800 OPERATION MANUAL( AUTOMATED BLOOD COUNTS AND [...] DESIRABLE: <130 MG/DL <110 MG/DL BORDERLINE-HIGH RISK: 130- 159 MG/DL 110-129 MG/DL HIGH RISK: >160 MG/DL >130 MG/DL *CHILDREN AND ADOLESCENTS REPRESENTS INDIVIDUALA AGED 2-19 YEARS EXCLUSIVE. Co2 31.4 mmol/L 22.0-29.0 Above high normal [facility] ([facility] NORMAL RANGES Age WBC RBC HGB HCT [...] HCT IS 5% LESS SOURCE FOR DATA: [employer] DYN 1800 OPERATION MANUAL( AUTOMATED BLOOD COUNTS [...] DESIRABLE: <130 MG/DL <110 MG/DL BORDERLINE-HIGH RISK: 130- 159 MG/DL 110-129 MG/DL HIGH RISK: >160 MG/DL >130 MG/DL *CHILDREN AND ADOLESCENTS REPRESENTS INDIVIDUALA AGED 2-19 YEARS EXCLUSIVE. A/G Ratio 1.6 CALC [facility] ([facility] NORMAL RANGES Age WBC RBC HGB HCT [...] HCT IS 5% LESS SOURCE FOR DATA: [employer] 1800 OPERATION MANUAL( AUTOMATED BLOOD COUNTS AND [...] DESIRABLE: <130 MG/DL <110 MG/DL BORDERLINE-HIGH RISK: 130- 159 MG/DL 110-129 MG/DL HIGH RISK: >160 MG/DL >130 MG/DL *CHILDREN AND ADOLESCENTS REPRESENTS INDIVIDUALA AGED 2-19 YEARS EXCLUSIVE. Globulin 2.5 CALC [facility] ([facility] NORMAL RANGES Age WBC RBC HGB HCT [...] HCT IS 5% LESS SOURCE FOR DATA: [employer] 1800 OPERATION MANUAL( AUTOMATED BLOOD COUNTS AND [...] DESIRABLE: <130 MG/DL <110 MG/DL BORDERLINE-HIGH RISK: 130- 159 MG/DL 110-129 MG/DL HIGH RISK: >160 MG/DL >130 MG/DL *CHILDREN AND ADOLESCENTS REPRESENTS INDIVIDUALA AGED 2-19 YEARS EXCLUSIVE. Alb 4.0 g/dL 3.5-5.2 [facility] ([facility] NORMAL RANGES Age WBC RBC HGB HCT [...] HCT IS 5% LESS SOURCE FOR DATA: [employer] 1800 OPERATION MANUAL( AUTOMATED BLOOD COUNTS AND [...] DESIRABLE: <130 MG/DL <110 MG/DL BORDERLINE-HIGH RISK: 130- 159 MG/DL 110-129 MG/DL HIGH RISK: >160 MG/DL >130 MG/DL *CHILDREN AND ADOLESCENTS REPRESENTS INDIVIDUALA AGED 2-19 YEARS EXCLUSIVE. Alp 89.8 U/L 40-129 [facility] ([facility] NORMAL RANGES Age WBC RBC HGB HCT [...] HCT IS 5% LESS SOURCE FOR DATA: [employer] DYN 1800 OPERATION MANUAL( AUTOMATED BLOOD COUNTS [...] DESIRABLE: <130 MG/DL <110 MG/DL BORDERLINE-HIGH RISK: 130- 159 MG/DL 110-129 MG/DL HIGH RISK: >160 MG/DL >130 MG/DL *CHILDREN AND ADOLESCENTS REPRESENTS INDIVIDUALA AGED 2-19 YEARS EXCLUSIVE. Alt (SGPT) 7 U/L 0-41 [facility] ([facility] NORMAL RANGES Age WBC RBC HGB HCT [...] HCT IS 5% LESS SOURCE FOR DATA: [employer] 1800 OPERATION MANUAL( AUTOMATED BLOOD COUNTS AND [...] DESIRABLE: <130 MG/DL <110 MG/DL BORDERLINE-HIGH RISK: 130- 159 MG/DL 110-129 MG/DL HIGH RISK: >160 MG/DL >130 MG/DL *CHILDREN AND ADOLESCENTS REPRESENTS INDIVIDUALA AGED 2-19 YEARS EXCLUSIVE. Osmolality-Calculated 285.4 CALC [facility] ([facility] NORMAL RANGES Age WBC RBC HGB HCT [...] HCT IS 5% LESS SOURCE FOR DATA: [employer] 1800 OPERATION MANUAL( AUTOMATED BLOOD COUNTS AND [...] DESIRABLE: <130 MG/DL <110 MG/DL BORDERLINE-HIGH RISK: 130- 159 MG/DL 110-129 MG/DL HIGH RISK: >160 MG/DL >130 MG/DL *CHILDREN AND ADOLESCENTS REPRESENTS INDIVIDUALA AGED 2-19 YEARS EXCLUSIVE. Ast (Sgot) 11 U/L 0-40 [facility] ([facility] NORMAL RANGES Age WBC RBC HGB HCT [...] HCT IS 5% LESS SOURCE FOR DATA: [employer] DYN 1800 OPERATION MANUAL( AUTOMATED BLOOD COUNTS [...] DESIRABLE: <130 MG/DL <110 MG/DL BORDERLINE-HIGH RISK: 130- 159 MG/DL 110-129 MG/DL HIGH RISK: >160 MG/DL >130 MG/DL *CHILDREN AND ADOLESCENTS REPRESENTS INDIVIDUALA AGED 2-19 YEARS EXCLUSIVE. Tbili 0.23 mg/dL 0.0-1.2 [facility] ([facility] NORMAL RANGES Age WBC RBC HGB HCT [...] HCT IS 5% LESS SOURCE FOR DATA: [employer] 1800 OPERATION MANUAL( AUTOMATED BLOOD COUNTS AND [...] DESIRABLE: <130 MG/DL <110 MG/DL BORDERLINE-HIGH RISK: 130- 159 MG/DL 110-129 MG/DL HIGH RISK: >160 MG/DL >130 MG/DL *CHILDREN AND ADOLESCENTS REPRESENTS INDIVIDUALA AGED 2-19 YEARS EXCLUSIVE. eGFR 112 # [facility] ( [facility] NORMAL RANGES Age WBC RBC HGB HCT [...] HCT IS 5% LESS SOURCE FOR DATA: [employer] 1800 OPERATION MANUAL( AUTOMATED BLOOD COUNTS AND [...] DESIRABLE: <130 MG/DL <110 MG/DL BORDERLINE-HIGH RISK: 130- 159 MG/DL 110-129 MG/DL HIGH RISK: >160 MG/DL >130 MG/DL *CHILDREN AND ADOLESCENTS REPRESENTS INDIVIDUALA AGED 2-19 YEARS EXCLUSIVE. Anion Gap 13 mmol/L [facility] ([facility] NORMAL RANGES Age WBC RBC HGB HCT [...] HCT IS 5% LESS SOURCE FOR DATA: [employer] 1800 OPERATION MANUAL( AUTOMATED BLOOD COUNTS AND [...] DESIRABLE: <130 MG/DL <110 MG/DL BORDERLINE-HIGH RISK: 130- 159 MG/DL 110-129 MG/DL HIGH RISK: >160 MG/DL >130 MG/DL *CHILDREN AND ADOLESCENTS REPRESENTS INDIVIDUALA AGED 2-19 YEARS EXCLUSIVE. eGFR Non-Afr. Fijian 97 # [facility] ([facility] NORMAL RANGES Age WBC RBC HGB HCT [...] HCT IS 5% LESS SOURCE FOR DATA: [employer] 1800 OPERATION MANUAL( AUTOMATED BLOOD COUNTS AND [...] DESIRABLE: <130 MG/DL <110 MG/DL BORDERLINE-HIGH RISK: 130- 159 MG/DL 110-129 MG/DL HIGH RISK: >160 MG/DL >130 MG/DL *CHILDREN AND ADOLESCENTS REPRESENTS INDIVIDUALA AGED 2-19 YEARS EXCLUSIVE. ID Date Data Source [id number] 11/30/2020 01:40:00 PM EST [facility] ([facility] Name Value Range Interpretation Code Description Data Trina rce(s) Supporting Document(s) Creatine kinase [Enzymatic activity/volume] in Serum or Plasma 57 U /L 39-308 [facility] ([facility] NORMAL RANGES Age WBC RBC HGB HCT [...] HCT IS 5% LESS SOURCE FOR DATA: [employer] DYN 1800 OPERATION MANUAL( AUTOMATED BLOOD COUNTS [...] ADOLESCENTS REPRESENTS INDIVIDUALA AGED 2-19 YEARS EXCLUSIVE. ID Date Data Source [id number] 11/30/2020 01:40:00 PM EST [facility] ([facility] Name Value Range Interpretation Code Description Data Trina rce(s) Supporting Document(s) WBC 9.4 10E3/uL 4.1-10.9 [facility] ([facility] NORMAL RANGES Age WBC RBC HGB HCT [...] HCT IS 5% LESS SOURCE FOR DATA: [employer] 1800 OPERATION MANUAL( AUTOMATED BLOOD COUNTS AND [...] ADOLESCENTS REPRESENTS INDIVIDUALA AGED 2-19 YEARS EXCLUSIVE. RBC 4.69 10E6/uL 4.20-6.30 [facility] NORMAL RANGES Age WBC RBC HGB HCT [...] HCT IS 5% LESS SOURCE FOR DATA: [employer] 1800 OPERATION MANUAL( AUTOMATED BLOOD COUNTS AND [...] ADOLESCENTS REPRESENTS INDIVIDUALA AGED 2-19 YEARS EXCLUSIVE. HGB 10.7 g/dL 12.0-18.0 Below low normal [facility] ( [facility] NORMAL RANGES Age WBC RBC HGB HCT [...] HCT IS 5% LESS SOURCE FOR DATA: [employer] 1800 OPERATION MANUAL( AUTOMATED BLOOD COUNTS AND [...] ADOLESCENTS REPRESENTS INDIVIDUALA AGED 2-19 YEARS EXCLUSIVE. HCT 38.9 % 37.0-51.0 [facility] ([facility] NORMAL RANGES Age WBC RBC HGB HCT [...] HCT IS 5% LESS SOURCE FOR DATA: [employer] 1800 OPERATION MANUAL( AUTOMATED BLOOD COUNTS AND [...] ADOLESCENTS REPRESENTS INDIVIDUALA AGED 2-19 YEARS EXCLUSIVE. MCV 82.9 fL 80.0-97.0 [facility] NORMAL RANGES Age WBC RBC HGB HCT [...] HCT IS 5% LESS SOURCE FOR DATA: [employer] 1800 OPERATION MANUAL( AUTOMATED BLOOD COUNTS AND [...] ADOLESCENTS REPRESENTS INDIVIDUALA AGED 2-19 YEARS EXCLUSIVE. MCHC 27.5 g/dL 31.0-36.0 Below low normal [facility] ( [facility] NORMAL RANGES Age WBC RBC HGB HCT [...] HCT IS 5% LESS SOURCE FOR DATA: [employer] 1800 OPERATION MANUAL( AUTOMATED BLOOD COUNTS AND [...] ADOLESCENTS REPRESENTS INDIVIDUALA AGED 2-19 YEARS EXCLUSIVE. MCH 22.8 pg 26.0-32.0 Below low normal [facility] ( [facility] NORMAL RANGES Age WBC RBC HGB HCT [...] HCT IS 5% LESS SOURCE FOR DATA: [employer] 1800 OPERATION MANUAL( AUTOMATED BLOOD COUNTS AND [...] ADOLESCENTS REPRESENTS INDIVIDUALA AGED 2-19 YEARS EXCLUSIVE. PLT 323 10E3/uL 140-440 [facility] ([facility] NORMAL RANGES Age WBC RBC HGB HCT [...] HCT IS 5% LESS SOURCE FOR DATA: [employer] 1800 OPERATION MANUAL( AUTOMATED BLOOD COUNTS AND [...] ADOLESCENTS REPRESENTS INDIVIDUALA AGED 2-19 YEARS EXCLUSIVE. RDW-CV 16.0 % 11.5-14.5 Above high normal [facility] ([facility] NORMAL RANGES Age WBC RBC HGB HCT [...] HCT IS 5% LESS SOURCE FOR DATA: [employer] 1800 OPERATION MANUAL( AUTOMATED BLOOD COUNTS AND [...] ADOLESCENTS REPRESENTS INDIVIDUALA AGED 2-19 YEARS EXCLUSIVE. Lym% 17.3 % 10.0-58.5 [facility] ([facility] NORMAL RANGES Age WBC RBC HGB HCT [...] HCT IS 5% LESS SOURCE FOR DATA: [employer] 1800 OPERATION MANUAL( AUTOMATED BLOOD COUNTS AND [...] ADOLESCENTS REPRESENTS INDIVIDUALA AGED 2-19 YEARS EXCLUSIVE. Lym# 1.6 10E3/uL 0.6-4.1 [facility] ([facility] NORMAL RANGES Age WBC RBC HGB HCT [...] HCT IS 5% LESS SOURCE FOR DATA: [employer] DYN 1800 OPERATION MANUAL( AUTOMATED BLOOD COUNTS [...] ADOLESCENTS REPRESENTS INDIVIDUALA AGED 2-19 YEARS EXCLUSIVE. Neut% 72.2 % 37.0-92.0 [facility] ([facility] NORMAL RANGES Age WBC RBC HGB HCT [...] HCT IS 5% LESS SOURCE FOR DATA: [employer] 1800 OPERATION MANUAL( AUTOMATED BLOOD COUNTS AND [...] ADOLESCENTS REPRESENTS INDIVIDUALA AGED 2-19 YEARS EXCLUSIVE. MXD% 10.5 % 0.1-24.0 [facility] ([facility] NORMAL RANGES Age WBC RBC HGB HCT [...] HCT IS 5% LESS SOURCE FOR DATA: [employer] 1800 OPERATION MANUAL( AUTOMATED BLOOD COUNTS AND [...] ADOLESCENTS REPRESENTS INDIVIDUALA AGED 2-19 YEARS EXCLUSIVE. Neut# 6.8 % 2.0-7.8 [facility] ([facility] NORMAL RANGES Age WBC RBC HGB HCT [...] HCT IS 5% LESS SOURCE FOR DATA: [employer] 1800 OPERATION MANUAL( AUTOMATED BLOOD COUNTS AND [...] ADOLESCENTS REPRESENTS INDIVIDUALA AGED 2-19 YEARS EXCLUSIVE. MXD# 1.0 10E3/uL 0.0-1.8 [facility] ([facility] NORMAL RANGES Age WBC RBC HGB HCT [...] HCT IS 5% LESS SOURCE FOR DATA: [employer] 1800 OPERATION MANUAL( AUTOMATED BLOOD COUNTS AND [...] ADOLESCENTS REPRESENTS INDIVIDUALA AGED 2-19 YEARS EXCLUSIVE. MPV 11.2 fL 9.0-13.0 [facility] ([facility] NORMAL RANGES Age WBC RBC HGB HCT [...] HCT IS 5% LESS SOURCE FOR DATA: [employer] 1800 OPERATION MANUAL( AUTOMATED BLOOD COUNTS AND [...] ADOLESCENTS REPRESENTS INDIVIDUALA AGED 2-19 YEARS EXCLUSIVE. ID Date Data Source [id number] 11/30/2020 01:40:00 PM EST [facility] ([facility] Name Value Range Interpretation Code Description Data Trina rce(s) Supporting Document(s) Color Urine Laboratory test result M [facility] ([facility] Appearance of Urine Laboratory test result [facility] ([facility] Specific Hope Laboratory test result 1.00-1.03 [facility] ([facility] PH Urine Laboratory test result 5.0-8.0 [facility] ([facility] Glucose Urine Laboratory test result [facility] ([facility] Bilirubin.total [Presence] in Urine by Test strip Laboratory test res ult [facility] ([facility] Protein Urine Laboratory test result [facility] ([facility] Ketones Laboratory test result [facility] ([facility] Blood Urine Laboratory test result M [facility] ([facility] Leukocytes Laboratory test result [facility] ([facility] Nitrite Laboratory test result [facility] ([facility] Urobilinogen Laboratory test result 0.2-1.0 [facility] ([facility] Comment 1 Laboratory test result [facility] ([facility] ID Date Data Source [id number] 08/26/2020 03:47:00 PM EDT [facility] ([facility] Name Value Range Interpretation Code Description Data Trina rce(s) Supporting Document(s) Color Urine Laboratory test result M [facility] ([facility] Specific Hope 1.025 1.00-1.03 [facility] ([facility] Appearance of Urine Laboratory test result [facility] ([facility] PH Urine 7.0 5.0-8.0 [facility] ([facility] Glucose Urine Laboratory test result [facility] ([facility] Bilirubin.total [Presence] in Urine by Test strip Laboratory test res ult [facility] ([facility] Ketones Laboratory test result [facility] ([facility] Blood Urine Laboratory test result M EDENT ([facility] Nitrite Laboratory test result [facility] ([facility] Urobilinogen 0.2 EU/dl 0.2-1.0 [facility] ([facility] Protein Urine Laboratory test result [facility] ([facility] Leukocytes Laboratory test result ME DENT ([facility] ID Date Data Source [id number] 08/26/2020 03:47:00 PM EDT [facility] ([facility] Name Value Range Interpretation Code Description Data Trina rce(s) Supporting Document(s) Hemoglobin A1c/Hemoglobin.total in Blood 7.2 % 4.50-6.20 Above high normal [facility] ([facility] ID Date Data Source [id number] 08/26/2020 01:16:00 PM EDT [facility] ([facility] Name Value Range Interpretation Code Description Data Trina rce(s) Supporting Document(s) Chol 141 mg/dL 0-200 [facility] ([facility] NORMAL RANGES Age WBC RBC HGB HCT [...] HCT IS 5% LESS SOURCE FOR DATA: [employer] 1800 OPERATION MANUAL( AUTOMATED BLOOD COUNTS AND [...] DESIRABLE: <130 MG/DL <110 MG/DL BORDERLINE-HIGH RISK: 130- 159 MG/DL 110-129 MG/DL HIGH RISK: >160 MG/DL >130 MG/DL *CHILDREN AND ADOLESCENTS REPRESENTS INDIVIDUALA AGED 2-19 YEARS EXCLUSIVE. Trig 163 mg/dL 35-200 [facility] ([facility] NORMAL RANGES Age WBC RBC HGB HCT [...] HCT IS 5% LESS SOURCE FOR DATA: [employer] 1800 OPERATION MANUAL( AUTOMATED BLOOD COUNTS AND [...] DESIRABLE: <130 MG/DL <110 MG/DL BORDERLINE-HIGH RISK: 130- 159 MG/DL 110-129 MG/DL HIGH RISK: >160 MG/DL >130 MG/DL *CHILDREN AND ADOLESCENTS REPRESENTS INDIVIDUALA AGED 2-19 YEARS EXCLUSIVE. Cholesterol in HDL [Mass/volume] in Serum or Plasma 44 mg/dL 35-55 [facility] ([facility] NORMAL RANGES Age WBC RBC HGB HCT [...] HCT IS 5% LESS SOURCE FOR DATA: [employer] 1800 OPERATION MANUAL( AUTOMATED BLOOD COUNTS AND [...] DESIRABLE: <130 MG/DL <110 MG/DL BORDERLINE-HIGH RISK: 130- 159 MG/DL 110-129 MG/DL HIGH RISK: >160 MG/DL >130 MG/DL *CHILDREN AND ADOLESCENTS REPRESENTS INDIVIDUALA AGED 2-19 YEARS EXCLUSIVE. Cho/HDL Ratio 3.2 CALC [facility] ([facility] NORMAL RANGES Age WBC RBC HGB HCT [...] HCT IS 5% LESS SOURCE FOR DATA: [employer] 1800 OPERATION MANUAL( AUTOMATED BLOOD COUNTS AND [...] DESIRABLE: <130 MG/DL <110 MG/DL BORDERLINE-HIGH RISK: 130- 159 MG/DL 110-129 MG/DL HIGH RISK: >160 MG/DL >130 MG/DL *CHILDREN AND ADOLESCENTS REPRESENTS INDIVIDUALA AGED 2-19 YEARS EXCLUSIVE. LDL_C 65 Calc 75-129 Below low normal [facility] ( [facility] NORMAL RANGES Age WBC RBC HGB HCT [...] HCT IS 5% LESS SOURCE FOR DATA: [employer] DYN 1800 OPERATION MANUAL( AUTOMATED BLOOD COUNTS [...] DESIRABLE: <130 MG/DL <110 MG/DL BORDERLINE-HIGH RISK: 130- 159 MG/DL 110-129 MG/DL HIGH RISK: >160 MG/DL >130 MG/DL *CHILDREN AND ADOLESCENTS REPRESENTS INDIVIDUALA AGED 2-19 YEARS EXCLUSIVE. ID Date Data Source [id number] 08/26/2020 01:16:00 PM EDT [facility] ([facility] Name Value Range Interpretation Code Description Data Trina rce(s) Supporting Document(s) BUN 24 mg/dL 8-23 Above high normal [facility] ([facility] NORMAL RANGES Age WBC RBC HGB HCT [...] HCT IS 5% LESS SOURCE FOR DATA: [employer] 1800 OPERATION MANUAL( AUTOMATED BLOOD COUNTS AND [...] DESIRABLE: <130 MG/DL <110 MG/DL BORDERLINE-HIGH RISK: 130- 159 MG/DL 110-129 MG/DL HIGH RISK: >160 MG/DL >130 MG/DL *CHILDREN AND ADOLESCENTS REPRESENTS INDIVIDUALA AGED 2-19 YEARS EXCLUSIVE. Glu 144 mg/dL 70-110 Above high normal [facility] ([facility] NORMAL RANGES Age WBC RBC HGB HCT [...] HCT IS 5% LESS SOURCE FOR DATA: [employer] 1800 OPERATION MANUAL( AUTOMATED BLOOD COUNTS AND [...] DESIRABLE: <130 MG/DL <110 MG/DL BORDERLINE-HIGH RISK: 130- 159 MG/DL 110-129 MG/DL HIGH RISK: >160 MG/DL >130 MG/DL *CHILDREN AND ADOLESCENTS REPRESENTS INDIVIDUALA AGED 2-19 YEARS EXCLUSIVE. BUN/Creatinine Ratio 36.1 CALC [facility] ([facility] NORMAL RANGES Age WBC RBC HGB HCT [...] HCT IS 5% LESS SOURCE FOR DATA: [employer] 1800 OPERATION MANUAL( AUTOMATED BLOOD COUNTS AND [...] DESIRABLE: <130 MG/DL <110 MG/DL BORDERLINE-HIGH RISK: 130- 159 MG/DL 110-129 MG/DL HIGH RISK: >160 MG/DL >130 MG/DL *CHILDREN AND ADOLESCENTS REPRESENTS INDIVIDUALA AGED 2-19 YEARS EXCLUSIVE. Creat 0.7 mg/dL 0.7-1.2 [facility] ([facility] NORMAL RANGES Age WBC RBC HGB HCT [...] HCT IS 5% LESS SOURCE FOR DATA: [employer] 1800 OPERATION MANUAL( AUTOMATED BLOOD COUNTS AND [...] DESIRABLE: <130 MG/DL <110 MG/DL BORDERLINE-HIGH RISK: 130- 159 MG/DL 110-129 MG/DL HIGH RISK: >160 MG/DL >130 MG/DL *CHILDREN AND ADOLESCENTS REPRESENTS INDIVIDUALA AGED 2-19 YEARS EXCLUSIVE. Na 141 mmol/L 136-145 AL[facility] ([facility] NORMAL RANGES Age WBC RBC HGB HCT [...] HCT IS 5% LESS SOURCE FOR DATA: [employer] 1800 OPERATION MANUAL( AUTOMATED BLOOD COUNTS AND [...] DESIRABLE: <130 MG/DL <110 MG/DL BORDERLINE-HIGH RISK: 130- 159 MG/DL 110-129 MG/DL HIGH RISK: >160 MG/DL >130 MG/DL *CHILDREN AND ADOLESCENTS REPRESENTS INDIVIDUALA AGED 2-19 YEARS EXCLUSIVE. CL 99.1 mmol/L 98.0-107.0 [employer] ([facility] NORMAL RANGES Age WBC RBC HGB HCT [...] HCT IS 5% LESS SOURCE FOR DATA: [employer] 1800 OPERATION MANUAL( AUTOMATED BLOOD COUNTS AND [...] DESIRABLE: <130 MG/DL <110 MG/DL BORDERLINE-HIGH RISK: 130- 159 MG/DL 110-129 MG/DL HIGH RISK: >160 MG/DL >130 MG/DL *CHILDREN AND ADOLESCENTS REPRESENTS INDIVIDUALA AGED 2-19 YEARS EXCLUSIVE. K 4.4 mmol/L 3.5-5.1 [facility] ([facility] NORMAL RANGES Age WBC RBC HGB HCT [...] HCT IS 5% LESS SOURCE FOR DATA: [employer] 1800 OPERATION MANUAL( AUTOMATED BLOOD COUNTS AND [...] DESIRABLE: <130 MG/DL <110 MG/DL BORDERLINE-HIGH RISK: 130- 159 MG/DL 110-129 MG/DL HIGH RISK: >160 MG/DL >130 MG/DL *CHILDREN AND ADOLESCENTS REPRESENTS INDIVIDUALA AGED 2-19 YEARS EXCLUSIVE. CA 9.1 mg/dL 8.6-10.2 [facility] ([facility] NORMAL RANGES Age WBC RBC HGB HCT [...] HCT IS 5% LESS SOURCE FOR DATA: [employer] 1800 OPERATION MANUAL( AUTOMATED BLOOD COUNTS AND [...] DESIRABLE: <130 MG/DL <110 MG/DL BORDERLINE-HIGH RISK: 130- 159 MG/DL 110-129 MG/DL HIGH RISK: >160 MG/DL >130 MG/DL *CHILDREN AND ADOLESCENTS REPRESENTS INDIVIDUALA AGED 2-19 YEARS EXCLUSIVE. Co2 30.2 mmol/L 22.0-29.0 Above high normal [facility] ([facility] NORMAL RANGES Age WBC RBC HGB HCT [...] HCT IS 5% LESS SOURCE FOR DATA: [employer] 1800 OPERATION MANUAL( AUTOMATED BLOOD COUNTS AND [...] DESIRABLE: <130 MG/DL <110 MG/DL BORDERLINE-HIGH RISK: 130- 159 MG/DL 110-129 MG/DL HIGH RISK: >160 MG/DL >130 MG/DL *CHILDREN AND ADOLESCENTS REPRESENTS INDIVIDUALA AGED 2-19 YEARS EXCLUSIVE. Alb 3.9 g/dL 3.5-5.2 [facility] ([facility] NORMAL RANGES Age WBC RBC HGB HCT [...] HCT IS 5% LESS SOURCE FOR DATA: [employer] 1800 OPERATION MANUAL( AUTOMATED BLOOD COUNTS AND [...] DESIRABLE: <130 MG/DL <110 MG/DL BORDERLINE-HIGH RISK: 130- 159 MG/DL 110-129 MG/DL HIGH RISK: >160 MG/DL >130 MG/DL *CHILDREN AND ADOLESCENTS REPRESENTS INDIVIDUALA AGED 2-19 YEARS EXCLUSIVE. TP 6.2 g/dL 6.6-8.7 Below low normal [facility] ( [facility] NORMAL RANGES Age WBC RBC HGB HCT [...] HCT IS 5% LESS SOURCE FOR DATA: [employer] DYN 1800 OPERATION MANUAL( AUTOMATED BLOOD COUNTS [...] DESIRABLE: <130 MG/DL <110 MG/DL BORDERLINE-HIGH RISK: 130- 159 MG/DL 110-129 MG/DL HIGH RISK: >160 MG/DL >130 MG/DL *CHILDREN AND ADOLESCENTS REPRESENTS INDIVIDUALA AGED 2-19 YEARS EXCLUSIVE. Globulin 2.2 CALC [facility] ([facility] NORMAL RANGES Age WBC RBC HGB HCT [...] HCT IS 5% LESS SOURCE FOR DATA: [employer] 1800 OPERATION MANUAL( AUTOMATED BLOOD COUNTS AND [...] DESIRABLE: <130 MG/DL <110 MG/DL BORDERLINE-HIGH RISK: 130- 159 MG/DL 110-129 MG/DL HIGH RISK: >160 MG/DL >130 MG/DL *CHILDREN AND ADOLESCENTS REPRESENTS INDIVIDUALA AGED 2-19 YEARS EXCLUSIVE. A/G Ratio 1.8 CALC [facility] ([facility] NORMAL RANGES Age WBC RBC HGB HCT [...] HCT IS 5% LESS SOURCE FOR DATA: [employer] 1800 OPERATION MANUAL( AUTOMATED BLOOD COUNTS AND [...] DESIRABLE: <130 MG/DL <110 MG/DL BORDERLINE-HIGH RISK: 130- 159 MG/DL 110-129 MG/DL HIGH RISK: >160 MG/DL >130 MG/DL *CHILDREN AND ADOLESCENTS REPRESENTS INDIVIDUALA AGED 2-19 YEARS EXCLUSIVE. Alp 80.8 U/L 40-129 [facility] ([facility] NORMAL RANGES Age WBC RBC HGB HCT [...] HCT IS 5% LESS SOURCE FOR DATA: [employer] DYN 1800 OPERATION MANUAL( AUTOMATED BLOOD COUNTS [...] DESIRABLE: <130 MG/DL <110 MG/DL BORDERLINE-HIGH RISK: 130- 159 MG/DL 110-129 MG/DL HIGH RISK: >160 MG/DL >130 MG/DL *CHILDREN AND ADOLESCENTS REPRESENTS INDIVIDUALA AGED 2-19 YEARS EXCLUSIVE. Alt (SGPT) 9 U/L 0-41 [facility] ([facility] NORMAL RANGES Age WBC RBC HGB HCT [...] HCT IS 5% LESS SOURCE FOR DATA: [employer] 1800 OPERATION MANUAL( AUTOMATED BLOOD COUNTS AND [...] DESIRABLE: <130 MG/DL <110 MG/DL BORDERLINE-HIGH RISK: 130- 159 MG/DL 110-129 MG/DL HIGH RISK: >160 MG/DL >130 MG/DL *CHILDREN AND ADOLESCENTS REPRESENTS INDIVIDUALA AGED 2-19 YEARS EXCLUSIVE. Tbili 0.22 mg/dL 0.0-1.2 [facility] ([facility] NORMAL RANGES Age WBC RBC HGB HCT [...] HCT IS 5% LESS SOURCE FOR DATA: [employer] 1800 OPERATION MANUAL( AUTOMATED BLOOD COUNTS AND [...] DESIRABLE: <130 MG/DL <110 MG/DL BORDERLINE-HIGH RISK: 130- 159 MG/DL 110-129 MG/DL HIGH RISK: >160 MG/DL >130 MG/DL *CHILDREN AND ADOLESCENTS REPRESENTS INDIVIDUALA AGED 2-19 YEARS EXCLUSIVE. Osmolality-Calculated 287.3 [facility] ([facility] NORMAL RANGES Age WBC RBC HGB HCT [...] HCT IS 5% LESS SOURCE FOR DATA: [employer] 1800 OPERATION MANUAL( AUTOMATED BLOOD COUNTS AND [...] DESIRABLE: <130 MG/DL <110 MG/DL BORDERLINE-HIGH RISK: 130- 159 MG/DL 110-129 MG/DL HIGH RISK: >160 MG/DL >130 MG/DL *CHILDREN AND ADOLESCENTS REPRESENTS INDIVIDUALA AGED 2-19 YEARS EXCLUSIVE. Ast (Sgot) 11 U/L 0-40 [facility] ([facility] NORMAL RANGES Age WBC RBC HGB HCT [...] HCT IS 5% LESS SOURCE FOR DATA: [employer] 1800 OPERATION MANUAL( AUTOMATED BLOOD COUNTS AND [...] DESIRABLE: <130 MG/DL <110 MG/DL BORDERLINE-HIGH RISK: 130- 159 MG/DL 110-129 MG/DL HIGH RISK: >160 MG/DL >130 MG/DL *CHILDREN AND ADOLESCENTS REPRESENTS INDIVIDUALA AGED 2-19 YEARS EXCLUSIVE. Anion Gap 16 mmol/L [facility] ([facility] NORMAL RANGES Age WBC RBC HGB HCT [...] HCT IS 5% LESS SOURCE FOR DATA: [employer] 1800 OPERATION MANUAL( AUTOMATED BLOOD COUNTS AND [...] DESIRABLE: <130 MG/DL <110 MG/DL BORDERLINE-HIGH RISK: 130- 159 MG/DL 110-129 MG/DL HIGH RISK: >160 MG/DL >130 MG/DL *CHILDREN AND ADOLESCENTS REPRESENTS INDIVIDUALA AGED 2-19 YEARS EXCLUSIVE. eGFR 106 # [facility] ( [facility] CKD-EPI eGFR Non-Afr. Fijian 92 # [facility] ([facility] CKD-EPI ID Date Data Source [id number] 08/26/2020 01:16:00 PM EDT [facility] ([facility] Name Value Range Interpretation Code Description Data Trina rce(s) Supporting Document(s) Creatine kinase [Enzymatic activity/volume] in Serum or Plasma 70 U /L 39-308 [facility] ([facility] NORMAL RANGES Age WBC RBC HGB HCT [...] HCT IS 5% LESS SOURCE FOR DATA: [employer] 1800 OPERATION MANUAL( AUTOMATED BLOOD COUNTS AND [...] ADOLESCENTS REPRESENTS INDIVIDUALA AGED 2-19 YEARS EXCLUSIVE. ID Date Data Source [id number] 08/26/2020 01:16:00 PM EDT [facility] ([facility] Name Value Range Interpretation Code Description Data Trina rce(s) Supporting Document(s) WBC 8.6 10E3/uL 4.1-10.9 [facility] ([facility] NORMAL RANGES Age WBC RBC HGB HCT [...] HCT IS 5% LESS SOURCE FOR DATA: [employer] 1800 OPERATION MANUAL( AUTOMATED BLOOD COUNTS AND [...] ADOLESCENTS REPRESENTS INDIVIDUALA AGED 2-19 YEARS EXCLUSIVE. RBC 4.49 10E6/uL 4.20-6.30 [employer] ([facility] NORMAL RANGES Age WBC RBC HGB HCT [...] HCT IS 5% LESS SOURCE FOR DATA: [employer] 1800 OPERATION MANUAL( AUTOMATED BLOOD COUNTS AND [...] ADOLESCENTS REPRESENTS INDIVIDUALA AGED 2-19 YEARS EXCLUSIVE. HCT 38.7 % 37.0-51.0 [facility] ([facility] NORMAL RANGES Age WBC RBC HGB HCT [...] HCT IS 5% LESS SOURCE FOR DATA: [employer] 1800 OPERATION MANUAL( AUTOMATED BLOOD COUNTS AND [...] ADOLESCENTS REPRESENTS INDIVIDUALA AGED 2-19 YEARS EXCLUSIVE. HGB 11.7 g/dL 12.0-18.0 Below low normal [facility] ( [facility] NORMAL RANGES Age WBC RBC HGB HCT [...] HCT IS 5% LESS SOURCE FOR DATA: [employer] 1800 OPERATION MANUAL( AUTOMATED BLOOD COUNTS AND [...] ADOLESCENTS REPRESENTS INDIVIDUALA AGED 2-19 YEARS EXCLUSIVE. MCV 86.2 fL 80.0-97.0 [facility] ([facility] NORMAL RANGES Age WBC RBC HGB HCT [...] HCT IS 5% LESS SOURCE FOR DATA: [employer] 1800 OPERATION MANUAL( AUTOMATED BLOOD COUNTS AND [...] ADOLESCENTS REPRESENTS INDIVIDUALA AGED 2-19 YEARS EXCLUSIVE. MCH 26.1 pg 26.0-32.0 [facility] ([facility] NORMAL RANGES Age WBC RBC HGB HCT [...] HCT IS 5% LESS SOURCE FOR DATA: [employer] 1800 OPERATION MANUAL( AUTOMATED BLOOD COUNTS AND [...] ADOLESCENTS REPRESENTS INDIVIDUALA AGED 2-19 YEARS EXCLUSIVE. PLT 303 10E3/uL 140-440 [facility] ([facility] NORMAL RANGES Age WBC RBC HGB HCT [...] HCT IS 5% LESS SOURCE FOR DATA: [employer] 1800 OPERATION MANUAL( AUTOMATED BLOOD COUNTS AND [...] ADOLESCENTS REPRESENTS INDIVIDUALA AGED 2-19 YEARS EXCLUSIVE. MCHC 30.2 g/dL 31.0-36.0 Below low normal [facility] ( [facility] NORMAL RANGES Age WBC RBC HGB HCT [...] HCT IS 5% LESS SOURCE FOR DATA: [employer] 1800 OPERATION MANUAL( AUTOMATED BLOOD COUNTS AND [...] ADOLESCENTS REPRESENTS INDIVIDUALA AGED 2-19 YEARS EXCLUSIVE. RDW-CV 15.3 % 11.5-14.5 Above high normal [facility] ([facility] NORMAL RANGES Age WBC RBC HGB HCT [...] HCT IS 5% LESS SOURCE FOR DATA: [employer] 1800 OPERATION MANUAL( AUTOMATED BLOOD COUNTS AND [...] ADOLESCENTS REPRESENTS INDIVIDUALA AGED 2-19 YEARS EXCLUSIVE. Lym% 17.2 % 10.0-58.5 [facility] ([facility] NORMAL RANGES Age WBC RBC HGB HCT [...] HCT IS 5% LESS SOURCE FOR DATA: [employer] 1800 OPERATION MANUAL( AUTOMATED BLOOD COUNTS AND [...] ADOLESCENTS REPRESENTS INDIVIDUALA AGED 2-19 YEARS EXCLUSIVE. Neut% 71.8 % 37.0-92.0 [facility] ([facility] NORMAL RANGES Age WBC RBC HGB HCT [...] HCT IS 5% LESS SOURCE FOR DATA: [employer] 1800 OPERATION MANUAL( AUTOMATED BLOOD COUNTS AND [...] ADOLESCENTS REPRESENTS INDIVIDUALA AGED 2-19 YEARS EXCLUSIVE. MXD% 11.0 % 0.1-24.0 [facility] ([facility] NORMAL RANGES Age WBC RBC HGB HCT [...] HCT IS 5% LESS SOURCE FOR DATA: [employer] 1800 OPERATION MANUAL( AUTOMATED BLOOD COUNTS AND [...] ADOLESCENTS REPRESENTS INDIVIDUALA AGED 2-19 YEARS EXCLUSIVE. Lym# 1.5 10E3/uL 0.6-4.1 [facility] ([facility] NORMAL RANGES Age WBC RBC HGB HCT [...] HCT IS 5% LESS SOURCE FOR DATA: [employer] 1800 OPERATION MANUAL( AUTOMATED BLOOD COUNTS [...] ADOLESCENTS REPRESENTS INDIVIDUALA AGED 2-19 YEARS EXCLUSIVE. Neut# 6.2 % 2.0-7.8 [facility] ([facility] NORMAL RANGES Age WBC RBC HGB HCT [...] HCT IS 5% LESS SOURCE FOR DATA: [employer] 1800 OPERATION MANUAL( AUTOMATED BLOOD COUNTS AND [...] ADOLESCENTS REPRESENTS INDIVIDUALA AGED 2-19 YEARS EXCLUSIVE. MXD# 0.9 10E3/uL 0.0-1.8 [facility] ([facility] NORMAL RANGES Age WBC RBC HGB HCT [...] HCT IS 5% LESS SOURCE FOR DATA: [employer] 1800 OPERATION MANUAL( AUTOMATED BLOOD COUNTS AND [...] ADOLESCENTS REPRESENTS INDIVIDUALA AGED 2-19 YEARS EXCLUSIVE. MPV 10.6 fL 9.0-13.0 [facility] ([facility] NORMAL RANGES Age WBC RBC HGB HCT [...] HCT IS 5% LESS SOURCE FOR DATA: [employer] 1800 OPERATION MANUAL( AUTOMATED BLOOD COUNTS [...] ADOLESCENTS REPRESENTS INDIVIDUALA AGED 2-19 YEARS EXCLUSIVE. ID Date Data Source [id number] 05/13/2020 02:58:00 PM EDT [facility] ([facility] Name Value Range Interpretation Code Description Data Trina e(s) Supporting Document(s) Hemoglobin A1c/Hemoglobin.total in Blood 7.5 % 4.50-6.20 Above high normal [facility] ([facility] ID Date Data Source [id number] 05/13/2020 02:57:00 PM EDT [facility] ([facility] Name Value Range Interpretation Code Description Data Trina rce(s) Supporting Document(s) BUN 19 mg/dL 8-27 [facility] ([facility] Creatinine [Mass/volume] in Serum or Plasma 0.75 mg/dL 0.76 -1.27 Below low normal [facility] ([facility] ) Glucose [Mass/volume] in Serum or Plasma 93 mg/dL 65-99 [facility] ([facility] Urea nitrogen/Creatinine [Mass Ratio] in Serum or Plasma 25 10-24 Above high normal [facility] ([facility] ) eGFR If Africn Am 104 mL/min/1.73 [facility] ([facility] eGFR If NonAfricn Am 90 mL/min/1.73 [facility] ([facility] Sodium [Moles/volume] in Serum or Plasma 143 mmol/L 134-144 [facility] ([facility] Potassium [Moles/volume] in Serum or Plasma 4.3 mmol/L 3.5-5.2 [facility] ([facility] Carbon dioxide, total [Moles/volume] in Serum or Plasma 21 mmol/L 20 -29 [facility] ([facility] Chloride [Moles/volume] in Serum or Plasma 98 mmol/L 96-106 [facility] ([facility] Calcium [Mass/volume] in Serum or Plasma 9.1 mg/dL 8.6-10.2 [facility] ([facility] Protein [Mass/volume] in Serum or Plasma 6.7 g/dL 6.0-8.5 [facility] ([facility] Albumin [Mass/volume] in Serum or Plasma 4.4 g/dL 3.7-4.7 [facility] ([facility] Globulin [Mass/volume] in Serum by calculation 2.3 g/dL 1.5-4.5 [facility] ([facility] Albumin/Globulin [Mass Ratio] in Serum or Plasma 1.9 1.2-2.2 [facility] ([facility] Bilirubin.total [Mass/volume] in Serum or Plasma Laboratory test result 0.0-1.2 [facility] ([facility] Alkaline phosphatase [Enzymatic activity/volume] in Serum or Plasma 82 IU/L 39-117 [facility] Alanine aminotransferase [Enzymatic activity/volume] in Seru m or Plasma 10 IU/L 0-44 [facility] ([facility] Aspartate aminotransferase [Enzymatic activity/volume] in Serum or Plasma 14 IU/L 0-40 [facility] ([facility] ID Date Data Source [id number] 05/13/2020 02:57:00 PM EDT [facility] ([facility] Name Value Range Interpretation Code Description Data Trina rce(s) Supporting Document(s) Chol 158 mg/dL 0-200 [facility] ([facility] CLASSIFICATION CHOLESTEROL FO R ADULTS CHILDREN/ADOLESCENTS* DESIRABLE: <200 MG/DL <170 MG/DL BORDER-LINE HIGH RISK: 200-239 MG/DL 170-199 MG/DL HIGH RISK: >240 MG/DL >200 MG/DL CLASS. FOR PRIMARY LDL CHOL PREVENTION: LDL CHOL-CHILD/ADOLESCENTS* DESIRABLE: <130 MG/DL <110 MG/DL BORDERLINE-HIGH RISK: 130-159 MG/DL 110-129 MG/DL HIGH RISK: >160 MG/DL >130 MG/DL *CHILDREN AND ADOLESCENTS REPRESENTS INDIVIDUALA AGED 2-19 YEARS EXCLUSIVE. Trig 117 mg/dL 35-200 [facility] ([facility] CLASSIFICATION CHOLESTEROL FO R ADULTS CHILDREN/ADOLESCENTS* DESIRABLE: <200 MG/DL <170 MG/DL BORDER-LINE HIGH RISK: 200-239 MG/DL 170-199 MG/DL HIGH RISK: >240 MG/DL >200 MG/DL CLASS. FOR PRIMARY LDL CHOL PREVENTION: LDL CHOL-CHILD/ADOLESCENTS* DESIRABLE: <130 MG/DL <110 MG/DL BORDERLINE-HIGH RISK: 130-159 MG/DL 110-129 MG/DL HIGH RISK: >160 MG/DL >130 MG/DL *CHILDREN AND ADOLESCENTS REPRESENTS INDIVIDUALA AGED 2-19 YEARS EXCLUSIVE. Cholesterol in HDL [Mass/volume] in Serum or Plasma 46 mg/dL 35-55 [facility] ([facility] CLASSIFICATION CHOLESTEROL FO R ADULTS CHILDREN/ADOLESCENTS* DESIRABLE: <200 MG/DL <170 MG/DL BORDER-LINE HIGH RISK: 200-239 MG/DL 170-199 MG/DL HIGH RISK: >240 MG/DL >200 MG/DL CLASS. FOR PRIMARY LDL CHOL PREVENTION: LDL CHOL-CHILD/ADOLESCENTS* DESIRABLE: <130 MG/DL <110 MG/DL BORDERLINE-HIGH RISK: 130-159 MG/DL 110-129 MG/DL HIGH RISK: >160 MG/DL >130 MG/DL *CHILDREN AND ADOLESCENTS REPRESENTS INDIVIDUALA AGED 2-19 YEARS EXCLUSIVE. Cho/HDL Ratio 3.4 Calc [facility] ([facility] CLASSIFICATION CHOLESTEROL FO R ADULTS CHILDREN/ADOLESCENTS* DESIRABLE: <200 MG/DL <170 MG/DL BORDER-LINE HIGH RISK: 200-239 MG/DL 170-199 MG/DL HIGH RISK: >240 MG/DL >200 MG/DL CLASS. FOR PRIMARY LDL CHOL PREVENTION: LDL CHOL-CHILD/ADOLESCENTS* DESIRABLE: <130 MG/DL <110 MG/DL BORDERLINE-HIGH RISK: 130-159 MG/DL 110-129 MG/DL HIGH RISK: >160 MG/DL >130 MG/DL *CHILDREN AND ADOLESCENTS REPRESENTS INDIVIDUALA AGED 2-19 YEARS EXCLUSIVE. LDL_C 88 Calc 75-129 [facility] ([facility] CLASSIFICATION CHOLESTEROL FO R ADULTS CHILDREN/ADOLESCENTS* DESIRABLE: <200 MG/DL <170 MG/DL BORDER-LINE HIGH RISK: 200-239 MG/DL 170-199 MG/DL HIGH RISK: >240 MG/DL >200 MG/DL CLASS. FOR PRIMARY LDL CHOL PREVENTION: LDL CHOL-CHILD/ADOLESCENTS* DESIRABLE: <130 MG/DL <110 MG/DL BORDERLINE-HIGH RISK: 130-159 MG/DL 110-129 MG/DL HIGH RISK: >160 MG/DL >130 MG/DL *CHILDREN AND ADOLESCENTS REPRESENTS INDIVIDUALA AGED 2-19 YEARS EXCLUSIVE. ID Date Data Source [id number] 04/06/2020 01:18:00 PM EDT [facility] ([facility], ) Name Value Range Interpretation Code Description Data Trina rce(s) Supporting Document(s) FVC-Pred 3.90 L [facility] ([facility], ) PDFReport Laboratory test result [facility] ([facility]) FVC-Pre 2.12 L [facility] ([facility]) FVC-%Pred-Pre 54 L [facility] ([facility], ) FVC-LLN 3.02 L [facility] ([facility], ) Fev1-Pred 2.81 L [facility] ([facility], ) Fev1-Pre 1.17 L [facility] ([facility], ) Fev1-LLN 2.07 L [facility] ([facility]) Fev1-%Pred-Pre 41 L [facility] ([facility], ) Fev6-%Pred-Pre 58 L [facility] ([facility], ) Fev6-Pre 2.12 L [facility] ([facility], ) Fev6-Pred 3.65 L [facility] ([facility], ) Fev6-LLN 2.79 L [facility] ([facility]) Yln0nam-Ahsd 73 % [facility] ([facility]) Kad7amz-HXY 63 % [facility] ([facility], ) Hcg4iop-Csy 55 % [facility] ([facility], ) Hhj0zia-%Pred-Pre 76 % [facility] ([facility]) Qdt4ltn-Uwb 100 % [facility] ([facility]) Rva7unm-Piyv 94 % [facility] ([facility]) FEFMax-Pre 4.22 L/E/sec [facility] ([facility]) Nds1pnq-%Pred-Pre 106 % [facility] ([facility]) FEFMax-Pred 7.38 L/E/sec [facility] ([facility], ) FEFMax-%Pred-Pre 57 L/E/sec [facility] ([facility]) FEFMax-LLN 5.19 L/E/sec [facility] ([facility]) Sna9719-Utqo 2.04 L/E/sec [facility] ([facility]) Sbu1278-Lde 0.53 L/E/sec [facility] ([facility]) Eyi3301-%Pred-Pre 25 L/E/sec [facility] ([facility]) ExpTime-Pre 5.62 sec [facility] ([facility], ) Afw5726-MPI 0.53 L/E/sec [facility] ([facility], ) Oit2ngc6-Jgr 55 % [facility] ([facility]) Sah1kre2-Ajou 77 % [facility] ([facility], ) Fju9cpc0-%Pred-Pre 71 % [facility] ([facility]) Bap6bgw4-EBB 68 % [facility] ([facility]) ID Date Data Source [id number] 04/01/2020 12:00:00 AM EDT [facility] Alvaro Joy MD Patient Name: CASSIA LUNA [id number] [facility] Date of : 1945[place] Date of Exam: 04/01/2020JASVIR Avelar [id number]#: Fax: [phone] EXAM: LOW DOSE CT LUNG SCREENINGCLINICAL INFORMATION: Tobacco abuse.64 slice low dose lung screening CT was obtained using axial images in a YBfilter (lung) without intravenous contrast. As per the protocol, only lungwindow images were sent to the read station for interpretation.All priors were reviewed, the latest is dated 04/08/2019, a contrastenhanced chest CT.No new abnormal nodules, masses or opacities have developed. There is nosignificant change compared to the latest prior exam of 04/08/2019.IMPRESSION:Stable chest. Lung Rads Category 1.Accredited by the [place] in [place].DAVID Purvis/Sherif mena for referring CASSIA LUNA to our office. Electronically Signed - JUAN DIEGO VANEGAS DO 04/01/20 16:54 Name Value Range Interpretation Code Description Data Trina rce(s) Supporting Document(s) ID Date Data Source [id number] 02/12/2020 02:16:00 PM EDT [facility] ([facility] Name Value Range Interpretation Code Description Data Trina rce(s) Supporting Document(s) Hemoglobin A1c/Hemoglobin.total in Blood 7.9 % 4.50-6.20 Above high normal [facility] ([facility] ID Date Data Source [id number] 02/12/2020 02:15:00 PM EDT [facility] ([facility] Name Value Range Interpretation Code Description Data Trina rce(s) Supporting Document(s) Creatine kinase [Enzymatic activity/volume] in Serum or Plasma 79 U /L 39-308 [facility] ([facility] CLASSIFICATION CHOLESTEROL FO R ADULTS CHILDREN/ADOLESCENTS* DESIRABLE: <200 MG/DL <170 MG/DL BORDER-LINE HIGH RISK: 200-239 MG/DL 170-199 MG/DL HIGH RISK: >240 MG/DL >200 MG/DL CLASS. FOR PRIMARY LDL CHOL PREVENTION: LDL CHOL-CHILD/ADOLESCENTS* DESIRABLE: <130 MG/DL <110 MG/DL BORDERLINE-HIGH RISK: 130-159 MG/DL 110-129 MG/DL HIGH RISK: >160 MG/DL >130 MG/DL *CHILDREN AND ADOLESCENTS REPRESENTS INDIVIDUALA AGED 2-19 YEARS EXCLUSIVE. CHRONIC KIDNEY DISEASE STAGING PER NKF: MALE [...] mL/min Normal 80 and above >32 mL/min NormalNORMAL RANGES Age WBC RBC HGB HCT MCV PLT Adult M 4.1-10.9 4.20-6.30 12.0-18.0 37.0-51.0 80-97 140-440 Adult F 4.1-10.9 4.04-5.48 12.0-18.0 37.0-51.0 80-97 140-440 0- 1 Yr 5.0-20.0 3.9-5.9 15-18 MV: 44 MV: 91 MV: 277 2-9 Yr. 6.0-17.0 3.8-5.4 11-13 MV: 37 MV: 78 MV: 300 10 Yrs. 5.0-13.0 3.8-5.4 12-15 MV: 39 MV: 80 MV: 250 NOTE: * FOR ADULT BLACK MALES AND FEMALES, NORMAL WBC IS 2.9-7.7 K/ML * FOR ADULT BLACK MALES AND FEMALES, NORMAL RBC,HGB, AND HCT IS 5% LESS SOURCE FOR DATA: [employer]YN 1800 OPERATION MANUAL( AUTOMATED BLOOD COUNTS AND DIFF.) APPENDIX B-3 ID Date Data Source [id number] 02/12/2020 02:15:00 PM EDT [facility] ([facility] Name Value Range Interpretation Code Description Data Trina rce(s) Supporting Document(s) Chol 175 mg/dL 0-200 [facility] ([facility] CLASSIFICATION CHOLESTEROL FO R ADULTS CHILDREN/ADOLESCENTS* DESIRABLE: <200 MG/DL <170 MG/DL BORDER-LINE HIGH RISK: 200-239 MG/DL 170-199 MG/DL HIGH RISK: >240 MG/DL >200 MG/DL CLASS. FOR PRIMARY LDL CHOL PREVENTION: LDL CHOL-CHILD/ADOLESCENTS* DESIRABLE: <130 MG/DL <110 MG/DL BORDERLINE-HIGH RISK: 130-159 MG/DL 110-129 MG/DL HIGH RISK: >160 MG/DL >130 MG/DL *CHILDREN AND ADOLESCENTS REPRESENTS INDIVIDUALA AGED 2-19 YEARS EXCLUSIVE. CHRONIC KIDNEY DISEASE STAGING PER NKF: MALE [...] mL/min Normal 80 and above >32 mL/min NormalNORMAL RANGES Age WBC RBC HGB HCT MCV PLT Adult M 4.1-10.9 4.20-6.30 12.0-18.0 37.0-51.0 80-97 140-440 Adult F 4.1-10.9 4.04-5.48 12.0-18.0 37.0-51.0 80-97 140-440 0- 1 Yr 5.0-20.0 3.9-5.9 15-18 MV: 44 MV: 91 MV: 277 2-9 Yr. 6.0-17.0 3.8-5.4 11-13 MV: 37 MV: 78 MV: 300 10 Yrs. 5.0-13.0 3.8-5.4 12-15 MV: 39 MV: 80 MV: 250 NOTE: * FOR ADULT BLACK MALES AND FEMALES, NORMAL WBC IS 2.9-7.7 K/ML * FOR ADULT BLACK MALES AND FEMALES, NORMAL RBC,HGB, AND HCT IS 5% LESS SOURCE FOR DATA: [employer] DYN 1800 OPERATION MANUAL( AUTOMATED BLOOD COUNTS AND DIFF.) APPENDIX B-3 Cholesterol in HDL [Mass/volume] in Serum or Plasma 53 mg/dL 35-55 [facility] ([facility] CLASSIFICATION CHOLESTEROL FO R ADULTS CHILDREN/ADOLESCENTS* DESIRABLE: <200 MG/DL <170 MG/DL BORDER-LINE HIGH RISK: 200-239 MG/DL 170-199 MG/DL HIGH RISK: >240 MG/DL >200 MG/DL CLASS. FOR PRIMARY LDL CHOL PREVENTION: LDL CHOL-CHILD/ADOLESCENTS* DESIRABLE: <130 MG/DL <110 MG/DL BORDERLINE-HIGH RISK: 130-159 MG/DL 110-129 MG/DL HIGH RISK: >160 MG/DL >130 MG/DL *CHILDREN AND ADOLESCENTS REPRESENTS INDIVIDUALA AGED 2-19 YEARS EXCLUSIVE. CHRONIC KIDNEY DISEASE STAGING PER NKF: MALE [...] mL/min Normal 80 and above >32 mL/min NormalNORMAL RANGES Age WBC RBC HGB HCT MCV PLT Adult M 4.1-10.9 4.20-6.30 12.0-18.0 37.0-51.0 80-97 140-440 Adult F 4.1-10.9 4.04-5.48 12.0-18.0 37.0-51.0 80-97 140-440 0- 1 Yr 5.0-20.0 3.9-5.9 15-18 MV: 44 MV: 91 MV: 277 2-9 Yr. 6.0-17.0 3.8-5.4 11-13 MV: 37 MV: 78 MV: 300 10 Yrs. 5.0-13.0 3.8-5.4 12-15 MV: 39 MV: 80 MV: 250 NOTE: * FOR ADULT BLACK MALES AND FEMALES, NORMAL WBC IS 2.9-7.7 K/ML * FOR ADULT BLACK MALES AND FEMALES, NORMAL RBC,HGB, AND HCT IS 5% LESS SOURCE FOR DATA: [employer] DYN 1800 OPERATION MANUAL( AUTOMATED BLOOD COUNTS AND DIFF.) APPENDIX B-3 Trig 124 mg/dL 35-200 [facility] ([facility] CLASSIFICATION CHOLESTEROL FO R ADULTS CHILDREN/ADOLESCENTS* DESIRABLE: <200 MG/DL <170 MG/DL BORDER-LINE HIGH RISK: 200-239 MG/DL 170-199 MG/DL HIGH RISK: >240 MG/DL >200 MG/DL CLASS. FOR PRIMARY LDL CHOL PREVENTION: LDL CHOL-CHILD/ADOLESCENTS* DESIRABLE: <130 MG/DL <110 MG/DL BORDERLINE-HIGH RISK: 130-159 MG/DL 110-129 MG/DL HIGH RISK: >160 MG/DL >130 MG/DL *CHILDREN AND ADOLESCENTS REPRESENTS INDIVIDUALA AGED 2-19 YEARS EXCLUSIVE. CHRONIC KIDNEY DISEASE STAGING PER NKF: MALE [...] mL/min Normal 80 and above >32 mL/min NormalNORMAL RANGES Age WBC RBC HGB HCT MCV PLT Adult M 4.1-10.9 4.20-6.30 12.0-18.0 37.0-51.0 80-97 140-440 Adult F 4.1-10.9 4.04-5.48 12.0-18.0 37.0-51.0 80-97 140-440 0- 1 Yr 5.0-20.0 3.9-5.9 15-18 MV: 44 MV: 91 MV: 277 2-9 Yr. 6.0-17.0 3.8-5.4 11-13 MV: 37 MV: 78 MV: 300 10 Yrs. 5.0-13.0 3.8-5.4 12-15 MV: 39 MV: 80 MV: 250 NOTE: * FOR ADULT BLACK MALES AND FEMALES, NORMAL WBC IS 2.9-7.7 K/ML * FOR ADULT BLACK MALES AND FEMALES, NORMAL RBC,HGB, AND HCT IS 5% LESS SOURCE FOR DATA: [employer] 1800 OPERATION MANUAL( AUTOMATED BLOOD COUNTS AND DIFF.) APPENDIX B-3 LDL_C 97 Calc 75-129 [facility] ([facility] CLASSIFICATION CHOLESTEROL FO R ADULTS CHILDREN/ADOLESCENTS* DESIRABLE: <200 MG/DL <170 MG/DL BORDER-LINE HIGH RISK: 200-239 MG/DL 170-199 MG/DL HIGH RISK: >240 MG/DL >200 MG/DL CLASS. FOR PRIMARY LDL CHOL PREVENTION: LDL CHOL-CHILD/ADOLESCENTS* DESIRABLE: <130 MG/DL <110 MG/DL BORDERLINE-HIGH RISK: 130-159 MG/DL 110-129 MG/DL HIGH RISK: >160 MG/DL >130 MG/DL *CHILDREN AND ADOLESCENTS REPRESENTS INDIVIDUALA AGED 2-19 YEARS EXCLUSIVE. CHRONIC KIDNEY DISEASE STAGING PER NKF: MALE [...] mL/min Normal 80 and above >32 mL/min NormalNORMAL RANGES Age WBC RBC HGB HCT MCV PLT Adult M 4.1-10.9 4.20-6.30 12.0-18.0 37.0-51.0 80-97 140-440 Adult F 4.1-10.9 4.04-5.48 12.0-18.0 37.0-51.0 80- 140-440 0- 1 Yr 5.0-20.0 3.9-5.9 15-18 MV: 44 MV: 91 MV: 277 2-9 Yr. 6.0-17.0 3.8-5.4 11-13 MV: 37 MV: 78 MV: 300 10 Yrs. 5.0-13.0 3.8-5.4 12-15 MV: 39 MV: 80 MV: 250 NOTE: * FOR ADULT BLACK MALES AND FEMALES, NORMAL WBC IS 2.9-7.7 K/ML * FOR ADULT BLACK MALES AND FEMALES, NORMAL RBC,HGB, AND HCT IS 5% LESS SOURCE FOR DATA: [employer] 1800 OPERATION MANUAL( AUTOMATED BLOOD COUNTS AND DIFF.) APPENDIX B-3 Cho/HDL Ratio 3.3 [facility] CLASSIFICATION CHOLESTEROL FO R ADULTS CHILDREN/ADOLESCENTS* DESIRABLE: <200 MG/DL <170 MG/DL BORDER-LINE HIGH RISK: 200-239 MG/DL 170-199 MG/DL HIGH RISK: >240 MG/DL >200 MG/DL CLASS. FOR PRIMARY LDL CHOL PREVENTION: LDL CHOL-CHILD/ADOLESCENTS* DESIRABLE: <130 MG/DL <110 MG/DL BORDERLINE-HIGH RISK: 130-159 MG/DL 110-129 MG/DL HIGH RISK: >160 MG/DL >130 MG/DL *CHILDREN AND ADOLESCENTS REPRESENTS INDIVIDUALA AGED 2-19 YEARS EXCLUSIVE. CHRONIC KIDNEY DISEASE STAGING PER NKF: MALE [...] mL/min Normal 80 and above >32 mL/min NormalNORMAL RANGES Age WBC RBC HGB HCT MCV PLT Adult M 4.1-10.9 4.20-6.30 12.0-18.0 37.0-51.0 80-97 140-440 Adult F 4.1-10.9 4.04-5.48 12.0-18.0 37.0-51.0 80-97 140-440 0- 1 Yr 5.0-20.0 3.9-5.9 15-18 MV: 44 MV: 91 MV: 277 2-9 Yr. 6.0-17.0 3.8-5.4 11-13 MV: 37 MV: 78 MV: 300 10 Yrs. 5.0-13.0 3.8-5.4 12-15 MV: 39 MV: 80 MV: 250 NOTE: * FOR ADULT BLACK MALES AND FEMALES, NORMAL WBC IS 2.9-7.7 K/ML * FOR ADULT BLACK MALES AND FEMALES, NORMAL RBC,HGB, AND HCT IS 5% LESS SOURCE FOR DATA: [employer] 1800 OPERATION MANUAL( AUTOMATED BLOOD COUNTS AND DIFF.) APPENDIX B-3 ID Date Data Source [id number] 02/12/2020 02:15:00 PM EDT [facility] ([facility] Name Value Range Interpretation Code Description Data Trina rce(s) Supporting Document(s) Creat 0.7 mg/dL 0.7-1.2 [facility] CLASSIFICATION CHOLESTEROL FO R ADULTS CHILDREN/ADOLESCENTS* DESIRABLE: <200 MG/DL <170 MG/DL BORDER-LINE HIGH RISK: 200-239 MG/DL 170-199 MG/DL HIGH RISK: >240 MG/DL >200 MG/DL CLASS. FOR PRIMARY LDL CHOL PREVENTION: LDL CHOL-CHILD/ADOLESCENTS* DESIRABLE: <130 MG/DL <110 MG/DL BORDERLINE-HIGH RISK: 130-159 MG/DL 110-129 MG/DL HIGH RISK: >160 MG/DL >130 MG/DL *CHILDREN AND ADOLESCENTS REPRESENTS INDIVIDUALA AGED 2-19 YEARS EXCLUSIVE. CHRONIC KIDNEY DISEASE STAGING PER NKF: MALE [...] mL/min Normal 80 and above >32 mL/min NormalNORMAL RANGES Age WBC RBC HGB HCT MCV PLT Adult M 4.1-10.9 4.20-6.30 12.0-18.0 37.0-51.0 80-97 140-440 Adult F 4.1-10.9 4.04-5.48 12.0-18.0 37.0-51.0 80-97 140-440 0- 1 Yr 5.0-20.0 3.9-5.9 15-18 MV: 44 MV: 91 MV: 277 2-9 Yr. 6.0-17.0 3.8-5.4 11-13 MV: 37 MV: 78 MV: 300 10 Yrs. 5.0-13.0 3.8-5.4 12-15 MV: 39 MV: 80 MV: 250 NOTE: * FOR ADULT BLACK MALES AND FEMALES, NORMAL WBC IS 2.9-7.7 K/ML * FOR ADULT BLACK MALES AND FEMALES, NORMAL RBC,HGB, AND HCT IS 5% LESS SOURCE FOR DATA: [employer] DYN 1800 OPERATION MANUAL( AUTOMATED BLOOD COUNTS AND DIFF.) APPENDIX B-3 BUN/Creatinine Ratio 31.2 CALC [facility] ([facility] CLASSIFICATION CHOLESTEROL FO R ADULTS CHILDREN/ADOLESCENTS* DESIRABLE: <200 MG/DL <170 MG/DL BORDER-LINE HIGH RISK: 200-239 MG/DL 170-199 MG/DL HIGH RISK: >240 MG/DL >200 MG/DL CLASS. FOR PRIMARY LDL CHOL PREVENTION: LDL CHOL-CHILD/ADOLESCENTS* DESIRABLE: <130 MG/DL <110 MG/DL BORDERLINE-HIGH RISK: 130-159 MG/DL 110-129 MG/DL HIGH RISK: >160 MG/DL >130 MG/DL *CHILDREN AND ADOLESCENTS REPRESENTS INDIVIDUALA AGED 2-19 YEARS EXCLUSIVE. CHRONIC KIDNEY DISEASE STAGING PER NKF: MALE [...] mL/min Normal 80 and above >32 mL/min NormalNORMAL RANGES Age WBC RBC HGB HCT MCV PLT Adult M 4.1-10.9 4.20-6.30 12.0-18.0 37.0-51.0 80-97 140-440 Adult F 4.1-10.9 4.04-5.48 12.0-18.0 37.0-51.0 80-97 140-440 0- 1 Yr 5.0-20.0 3.9-5.9 15-18 MV: 44 MV: 91 MV: 277 2-9 Yr. 6.0-17.0 3.8-5.4 11-13 MV: 37 MV: 78 MV: 300 10 Yrs. 5.0-13.0 3.8-5.4 12-15 MV: 39 MV: 80 MV: 250 NOTE: * FOR ADULT BLACK MALES AND FEMALES, NORMAL WBC IS 2.9-7.7 K/ML * FOR ADULT BLACK MALES AND FEMALES, NORMAL RBC,HGB, AND HCT IS 5% LESS SOURCE FOR DATA: [employer] 1800 OPERATION MANUAL( AUTOMATED BLOOD COUNTS AND DIFF.) APPENDIX B-3 Glu 147 mg/dL 70-110 Above high normal [facility] ([facility] CLASSIFICATION CHOLESTEROL FO R ADULTS CHILDREN/ADOLESCENTS* DESIRABLE: <200 MG/DL <170 MG/DL BORDER-LINE HIGH RISK: 200-239 MG/DL 170-199 MG/DL HIGH RISK: >240 MG/DL >200 MG/DL CLASS. FOR PRIMARY LDL CHOL PREVENTION: LDL CHOL-CHILD/ADOLESCENTS* DESIRABLE: <130 MG/DL <110 MG/DL BORDERLINE-HIGH RISK: 130-159 MG/DL 110-129 MG/DL HIGH RISK: >160 MG/DL >130 MG/DL *CHILDREN AND ADOLESCENTS REPRESENTS INDIVIDUALA AGED 2-19 YEARS EXCLUSIVE. CHRONIC KIDNEY DISEASE STAGING PER NKF: MALE [...] mL/min Normal 80 and above >32 mL/min NormalNORMAL RANGES Age WBC RBC HGB HCT MCV PLT Adult M 4.1-10.9 4.20-6.30 12.0-18.0 37.0-51.0 80-97 140-440 Adult F 4.1-10.9 4.04-5.48 12.0-18.0 37.0-51.0 80-97 140-440 0- 1 Yr 5.0-20.0 3.9-5.9 15-18 MV: 44 MV: 91 MV: 277 2-9 Yr. 6.0-17.0 3.8-5.4 11-13 MV: 37 MV: 78 MV: 300 10 Yrs. 5.0-13.0 3.8-5.4 12-15 MV: 39 MV: 80 MV: 250 NOTE: * FOR ADULT BLACK MALES AND FEMALES, NORMAL WBC IS 2.9-7.7 K/ML * FOR ADULT BLACK MALES AND FEMALES, NORMAL RBC,HGB, AND HCT IS 5% LESS SOURCE FOR DATA: [employer] DYN 1800 OPERATION MANUAL( AUTOMATED BLOOD COUNTS AND DIFF.) APPENDIX B-3 BUN 22 mg/dL 8-23 [facility] ([facility] CLASSIFICATION CHOLESTEROL FO R ADULTS CHILDREN/ADOLESCENTS* DESIRABLE: <200 MG/DL <170 MG/DL BORDER-LINE HIGH RISK: 200-239 MG/DL 170-199 MG/DL HIGH RISK: >240 MG/DL >200 MG/DL CLASS. FOR PRIMARY LDL CHOL PREVENTION: LDL CHOL-CHILD/ADOLESCENTS* DESIRABLE: <130 MG/DL <110 MG/DL BORDERLINE-HIGH RISK: 130-159 MG/DL 110-129 MG/DL HIGH RISK: >160 MG/DL >130 MG/DL *CHILDREN AND ADOLESCENTS REPRESENTS INDIVIDUALA AGED 2-19 YEARS EXCLUSIVE. CHRONIC KIDNEY DISEASE STAGING PER NKF: MALE [...] mL/min Normal 80 and above >32 mL/min NormalNORMAL RANGES Age WBC RBC HGB HCT MCV PLT Adult M 4.1-10.9 4.20-6.30 12.0-18.0 37.0-51.0 80-97 140-440 Adult F 4.1-10.9 4.04-5.48 12.0-18.0 37.0-51.0 80-97 140-440 0- 1 Yr 5.0-20.0 3.9-5.9 15-18 MV: 44 MV: 91 MV: 277 2-9 Yr. 6.0-17.0 3.8-5.4 11-13 MV: 37 MV: 78 MV: 300 10 Yrs. 5.0-13.0 3.8-5.4 12-15 MV: 39 MV: 80 MV: 250 NOTE: * FOR ADULT BLACK MALES AND FEMALES, NORMAL WBC IS 2.9-7.7 K/ML * FOR ADULT BLACK MALES AND FEMALES, NORMAL RBC,HGB, AND HCT IS 5% LESS SOURCE FOR DATA: [employer] DYN 1800 OPERATION MANUAL( AUTOMATED BLOOD COUNTS AND DIFF.) APPENDIX B-3 CL 96.3 mmol/L 98.0-107.0 Below low normal [facility] ([facility] CLASSIFICATION CHOLESTEROL FO R ADULTS CHILDREN/ADOLESCENTS* DESIRABLE: <200 MG/DL <170 MG/DL BORDER-LINE HIGH RISK: 200-239 MG/DL 170-199 MG/DL HIGH RISK: >240 MG/DL >200 MG/DL CLASS. FOR PRIMARY LDL CHOL PREVENTION: LDL CHOL-CHILD/ADOLESCENTS* DESIRABLE: <130 MG/DL <110 MG/DL BORDERLINE-HIGH RISK: 130-159 MG/DL 110-129 MG/DL HIGH RISK: >160 MG/DL >130 MG/DL *CHILDREN AND ADOLESCENTS REPRESENTS INDIVIDUALA AGED 2-19 YEARS EXCLUSIVE. CHRONIC KIDNEY DISEASE STAGING PER NKF: MALE [...] mL/min Normal 80 and above >32 mL/min NormalNORMAL RANGES Age WBC RBC HGB HCT MCV PLT Adult M 4.1-10.9 4.20-6.30 12.0-18.0 37.0-51.0 80-97 140-440 Adult F 4.1-10.9 4.04-5.48 12.0-18.0 37.0-51.0 80-97 140-440 0- 1 Yr 5.0-20.0 3.9-5.9 15-18 MV: 44 MV: 91 MV: 277 2-9 Yr. 6.0-17.0 3.8-5.4 11-13 MV: 37 MV: 78 MV: 300 10 Yrs. 5.0-13.0 3.8-5.4 12-15 MV: 39 MV: 80 MV: 250 NOTE: * FOR ADULT BLACK MALES AND FEMALES, NORMAL WBC IS 2.9-7.7 K/ML * FOR ADULT BLACK MALES AND FEMALES, NORMAL RBC,HGB, AND HCT IS 5% LESS SOURCE FOR DATA: [employer] 1800 OPERATION MANUAL( AUTOMATED BLOOD COUNTS AND DIFF.) APPENDIX B-3 Na 138 mmol/L 136-145 [facility] ([facility] CLASSIFICATION CHOLESTEROL FO R ADULTS CHILDREN/ADOLESCENTS* DESIRABLE: <200 MG/DL <170 MG/DL BORDER-LINE HIGH RISK: 200-239 MG/DL 170-199 MG/DL HIGH RISK: >240 MG/DL >200 MG/DL CLASS. FOR PRIMARY LDL CHOL PREVENTION: LDL CHOL-CHILD/ADOLESCENTS* DESIRABLE: <130 MG/DL <110 MG/DL BORDERLINE-HIGH RISK: 130-159 MG/DL 110-129 MG/DL HIGH RISK: >160 MG/DL >130 MG/DL *CHILDREN AND ADOLESCENTS REPRESENTS INDIVIDUALA AGED 2-19 YEARS EXCLUSIVE. CHRONIC KIDNEY DISEASE STAGING PER NKF: MALE [...] mL/min Normal 80 and above >32 mL/min NormalNORMAL RANGES Age WBC RBC HGB HCT MCV PLT Adult M 4.1-10.9 4.20-6.30 12.0-18.0 37.0-51.0 80-97 140-440 Adult F 4.1-10.9 4.04-5.48 12.0-18.0 37.0-51.0 80-97 140-440 0- 1 Yr 5.0-20.0 3.9-5.9 15-18 MV: 44 MV: 91 MV: 277 2-9 Yr. 6.0-17.0 3.8-5.4 11-13 MV: 37 MV: 78 MV: 300 10 Yrs. 5.0-13.0 3.8-5.4 12-15 MV: 39 MV: 80 MV: 250 NOTE: * FOR ADULT BLACK MALES AND FEMALES, NORMAL WBC IS 2.9-7.7 K/ML * FOR ADULT BLACK MALES AND FEMALES, NORMAL RBC,HGB, AND HCT IS 5% LESS SOURCE FOR DATA: [employer] DYN 1800 OPERATION MANUAL( AUTOMATED BLOOD COUNTS AND DIFF.) APPENDIX B-3 K 4.3 mmol/L 3.5-5.1 [facility] ([facility] CLASSIFICATION CHOLESTEROL FO R ADULTS CHILDREN/ADOLESCENTS* DESIRABLE: <200 MG/DL <170 MG/DL BORDER-LINE HIGH RISK: 200-239 MG/DL 170-199 MG/DL HIGH RISK: >240 MG/DL >200 MG/DL CLASS. FOR PRIMARY LDL CHOL PREVENTION: LDL CHOL-CHILD/ADOLESCENTS* DESIRABLE: <130 MG/DL <110 MG/DL BORDERLINE-HIGH RISK: 130-159 MG/DL 110-129 MG/DL HIGH RISK: >160 MG/DL >130 MG/DL *CHILDREN AND ADOLESCENTS REPRESENTS INDIVIDUALA AGED 2-19 YEARS EXCLUSIVE. CHRONIC KIDNEY DISEASE STAGING PER NKF: MALE [...] mL/min Normal 80 and above >32 mL/min NormalNORMAL RANGES Age WBC RBC HGB HCT MCV PLT Adult M 4.1-10.9 4.20-6.30 12.0-18.0 37.0-51.0 80-97 140-440 Adult F 4.1-10.9 4.04-5.48 12.0-18.0 37.0-51.0 80-97 140-440 0- 1 Yr 5.0-20.0 3.9-5.9 15-18 MV: 44 MV: 91 MV: 277 2-9 Yr. 6.0-17.0 3.8-5.4 11-13 MV: 37 MV: 78 MV: 300 10 Yrs. 5.0-13.0 3.8-5.4 12-15 MV: 39 MV: 80 MV: 250 NOTE: * FOR ADULT BLACK MALES AND FEMALES, NORMAL WBC IS 2.9-7.7 K/ML * FOR ADULT BLACK MALES AND FEMALES, NORMAL RBC,HGB, AND HCT IS 5% LESS SOURCE FOR DATA: [employer] DYN 1800 OPERATION MANUAL( AUTOMATED BLOOD COUNTS AND DIFF.) APPENDIX B-3 CA 9.2 mg/dL 8.6-10.2 [facility] ([facility] CLASSIFICATION CHOLESTEROL FO R ADULTS CHILDREN/ADOLESCENTS* DESIRABLE: <200 MG/DL <170 MG/DL BORDER-LINE HIGH RISK: 200-239 MG/DL 170-199 MG/DL HIGH RISK: >240 MG/DL >200 MG/DL CLASS. FOR PRIMARY LDL CHOL PREVENTION: LDL CHOL-CHILD/ADOLESCENTS* DESIRABLE: <130 MG/DL <110 MG/DL BORDERLINE-HIGH RISK: 130-159 MG/DL 110-129 MG/DL HIGH RISK: >160 MG/DL >130 MG/DL *CHILDREN AND ADOLESCENTS REPRESENTS INDIVIDUALA AGED 2-19 YEARS EXCLUSIVE. CHRONIC KIDNEY DISEASE STAGING PER NKF: MALE [...] mL/min Normal 80 and above >32 mL/min NormalNORMAL RANGES Age WBC RBC HGB HCT MCV PLT Adult M 4.1-10.9 4.20-6.30 12.0-18.0 37.0-51.0 80-97 140-440 Adult F 4.1-10.9 4.04-5.48 12.0-18.0 37.0-51.0 80-97 140-440 0- 1 Yr 5.0-20.0 3.9-5.9 15-18 MV: 44 MV: 91 MV: 277 2-9 Yr. 6.0-17.0 3.8-5.4 11-13 MV: 37 MV: 78 MV: 300 10 Yrs. 5.0-13.0 3.8-5.4 12-15 MV: 39 MV: 80 MV: 250 NOTE: * FOR ADULT BLACK MALES AND FEMALES, NORMAL WBC IS 2.9-7.7 K/ML * FOR ADULT BLACK MALES AND FEMALES, NORMAL RBC,HGB, AND HCT IS 5% LESS SOURCE FOR DATA: [employer] 1800 OPERATION MANUAL( AUTOMATED BLOOD COUNTS AND DIFF.) APPENDIX B-3 Alb 3.8 g/dL 3.5-5.2 [facility] ([facility] CLASSIFICATION CHOLESTEROL FO R ADULTS CHILDREN/ADOLESCENTS* DESIRABLE: <200 MG/DL <170 MG/DL BORDER-LINE HIGH RISK: 200-239 MG/DL 170-199 MG/DL HIGH RISK: >240 MG/DL >200 MG/DL CLASS. FOR PRIMARY LDL CHOL PREVENTION: LDL CHOL-CHILD/ADOLESCENTS* DESIRABLE: <130 MG/DL <110 MG/DL BORDERLINE-HIGH RISK: 130-159 MG/DL 110-129 MG/DL HIGH RISK: >160 MG/DL >130 MG/DL *CHILDREN AND ADOLESCENTS REPRESENTS INDIVIDUALA AGED 2-19 YEARS EXCLUSIVE. CHRONIC KIDNEY DISEASE STAGING PER NKF: MALE [...] mL/min Normal 80 and above >32 mL/min NormalNORMAL RANGES Age WBC RBC HGB HCT MCV PLT Adult M 4.1-10.9 4.20-6.30 12.0-18.0 37.0-51.0 80-97 140-440 Adult F 4.1-10.9 4.04-5.48 12.0-18.0 37.0-51.0 80-97 140-440 0- 1 Yr 5.0-20.0 3.9-5.9 15-18 MV: 44 MV: 91 MV: 277 2-9 Yr. 6.0-17.0 3.8-5.4 11-13 MV: 37 MV: 78 MV: 300 10 Yrs. 5.0-13.0 3.8-5.4 12-15 MV: 39 MV: 80 MV: 250 NOTE: * FOR ADULT BLACK MALES AND FEMALES, NORMAL WBC IS 2.9-7.7 K/ML * FOR ADULT BLACK MALES AND FEMALES, NORMAL RBC,HGB, AND HCT IS 5% LESS SOURCE FOR DATA: [employer] 1800 OPERATION MANUAL( AUTOMATED BLOOD COUNTS AND DIFF.) APPENDIX B-3 TP 6.1 g/dL 6.6-8.7 Below low normal [facility] ( [facility] CLASSIFICATION CHOLESTEROL FO R ADULTS CHILDREN/ADOLESCENTS* DESIRABLE: <200 MG/DL <170 MG/DL BORDER-LINE HIGH RISK: 200-239 MG/DL 170-199 MG/DL HIGH RISK: >240 MG/DL >200 MG/DL CLASS. FOR PRIMARY LDL CHOL PREVENTION: LDL CHOL-CHILD/ADOLESCENTS* DESIRABLE: <130 MG/DL <110 MG/DL BORDERLINE-HIGH RISK: 130-159 MG/DL 110-129 MG/DL HIGH RISK: >160 MG/DL >130 MG/DL *CHILDREN AND ADOLESCENTS REPRESENTS INDIVIDUALA AGED 2-19 YEARS EXCLUSIVE. CHRONIC KIDNEY DISEASE STAGING PER NKF: MALE [...] mL/min Normal 80 and above >32 mL/min NormalNORMAL RANGES Age WBC RBC HGB HCT MCV PLT Adult M 4.1-10.9 4.20-6.30 12.0-18.0 37.0-51.0 80-97 140-440 Adult F 4.1-10.9 4.04-5.48 12.0-18.0 37.0-51.0 80-97 140-440 0- 1 Yr 5.0-20.0 3.9-5.9 15-18 MV: 44 MV: 91 MV: 277 2-9 Yr. 6.0-17.0 3.8-5.4 11-13 MV: 37 MV: 78 MV: 300 10 Yrs. 5.0-13.0 3.8-5.4 12-15 MV: 39 MV: 80 MV: 250 NOTE: * FOR ADULT BLACK MALES AND FEMALES, NORMAL WBC IS 2.9-7.7 K/ML * FOR ADULT BLACK MALES AND FEMALES, NORMAL RBC,HGB, AND HCT IS 5% LESS SOURCE FOR DATA: [employer] 1800 OPERATION MANUAL( AUTOMATED BLOOD COUNTS AND DIFF.) APPENDIX B-3 Co2 28.7 mmol/L 22.0-29.0 [facility] ([facility] CLASSIFICATION CHOLESTEROL FO R ADULTS CHILDREN/ADOLESCENTS* DESIRABLE: <200 MG/DL <170 MG/DL BORDER-LINE HIGH RISK: 200-239 MG/DL 170-199 MG/DL HIGH RISK: >240 MG/DL >200 MG/DL CLASS. FOR PRIMARY LDL CHOL PREVENTION: LDL CHOL-CHILD/ADOLESCENTS* DESIRABLE: <130 MG/DL <110 MG/DL BORDERLINE-HIGH RISK: 130-159 MG/DL 110-129 MG/DL HIGH RISK: >160 MG/DL >130 MG/DL *CHILDREN AND ADOLESCENTS REPRESENTS INDIVIDUALA AGED 2-19 YEARS EXCLUSIVE. CHRONIC KIDNEY DISEASE STAGING PER NKF: MALE [...] mL/min Normal 80 and above >32 mL/min NormalNORMAL RANGES Age WBC RBC HGB HCT MCV PLT Adult M 4.1-10.9 4.20-6.30 12.0-18.0 37.0-51.0 80-97 140-440 Adult F 4.1-10.9 4.04-5.48 12.0-18.0 37.0-51.0 80-97 140-440 0- 1 Yr 5.0-20.0 3.9-5.9 15-18 MV: 44 MV: 91 MV: 277 2-9 Yr. 6.0-17.0 3.8-5.4 11-13 MV: 37 MV: 78 MV: 300 10 Yrs. 5.0-13.0 3.8-5.4 12-15 MV: 39 MV: 80 MV: 250 NOTE: * FOR ADULT BLACK MALES AND FEMALES, NORMAL WBC IS 2.9-7.7 K/ML * FOR ADULT BLACK MALES AND FEMALES, NORMAL RBC,HGB, AND HCT IS 5% LESS SOURCE FOR DATA: [employer] DYN 1800 OPERATION MANUAL( AUTOMATED BLOOD COUNTS AND DIFF.) APPENDIX B-3 Alp 76.4 U/L 40-129 [facility] CLASSIFICATION CHOLESTEROL FO R ADULTS CHILDREN/ADOLESCENTS* DESIRABLE: <200 MG/DL <170 MG/DL BORDER-LINE HIGH RISK: 200-239 MG/DL 170-199 MG/DL HIGH RISK: >240 MG/DL >200 MG/DL CLASS. FOR PRIMARY LDL CHOL PREVENTION: LDL CHOL-CHILD/ADOLESCENTS* DESIRABLE: <130 MG/DL <110 MG/DL BORDERLINE-HIGH RISK: 130-159 MG/DL 110-129 MG/DL HIGH RISK: >160 MG/DL >130 MG/DL *CHILDREN AND ADOLESCENTS REPRESENTS INDIVIDUALA AGED 2-19 YEARS EXCLUSIVE. CHRONIC KIDNEY DISEASE STAGING PER NKF: MALE [...] mL/min Normal 80 and above >32 mL/min NormalNORMAL RANGES Age WBC RBC HGB HCT MCV PLT Adult M 4.1-10.9 4.20-6.30 12.0-18.0 37.0-51.0 80-97 140-440 Adult F 4.1-10.9 4.04-5.48 12.0-18.0 37.0-51.0 80-97 140-440 0- 1 Yr 5.0-20.0 3.9-5.9 15-18 MV: 44 MV: 91 MV: 277 2-9 Yr. 6.0-17.0 3.8-5.4 11-13 MV: 37 MV: 78 MV: 300 10 Yrs. 5.0-13.0 3.8-5.4 12-15 MV: 39 MV: 80 MV: 250 NOTE: * FOR ADULT BLACK MALES AND FEMALES, NORMAL WBC IS 2.9-7.7 K/ML * FOR ADULT BLACK MALES AND FEMALES, NORMAL RBC,HGB, AND HCT IS 5% LESS SOURCE FOR DATA: [employer] 1800 OPERATION MANUAL( AUTOMATED BLOOD COUNTS AND DIFF.) APPENDIX B-3 A/G Ratio 1.7 CALC [facility] ([facility] CLASSIFICATION CHOLESTEROL FO R ADULTS CHILDREN/ADOLESCENTS* DESIRABLE: <200 MG/DL <170 MG/DL BORDER-LINE HIGH RISK: 200-239 MG/DL 170-199 MG/DL HIGH RISK: >240 MG/DL >200 MG/DL CLASS. FOR PRIMARY LDL CHOL PREVENTION: LDL CHOL-CHILD/ADOLESCENTS* DESIRABLE: <130 MG/DL <110 MG/DL BORDERLINE-HIGH RISK: 130-159 MG/DL 110-129 MG/DL HIGH RISK: >160 MG/DL >130 MG/DL *CHILDREN AND ADOLESCENTS REPRESENTS INDIVIDUALA AGED 2-19 YEARS EXCLUSIVE. CHRONIC KIDNEY DISEASE STAGING PER NKF: MALE [...] mL/min Normal 80 and above >32 mL/min NormalNORMAL RANGES Age WBC RBC HGB HCT MCV PLT Adult M 4.1-10.9 4.20-6.30 12.0-18.0 37.0-51.0 80-97 140-440 Adult F 4.1-10.9 4.04-5.48 12.0-18.0 37.0-51.0 80-97 140-440 0- 1 Yr 5.0-20.0 3.9-5.9 15-18 MV: 44 MV: 91 MV: 277 2-9 Yr. 6.0-17.0 3.8-5.4 11-13 MV: 37 MV: 78 MV: 300 10 Yrs. 5.0-13.0 3.8-5.4 12-15 MV: 39 MV: 80 MV: 250 NOTE: * FOR ADULT BLACK MALES AND FEMALES, NORMAL WBC IS 2.9-7.7 K/ML * FOR ADULT BLACK MALES AND FEMALES, NORMAL RBC,HGB, AND HCT IS 5% LESS SOURCE FOR DATA: [employer] 1800 OPERATION MANUAL( AUTOMATED BLOOD COUNTS AND DIFF.) APPENDIX B-3 Globulin 2.3 CALC [facility] CLASSIFICATION CHOLESTEROL FO R ADULTS CHILDREN/ADOLESCENTS* DESIRABLE: <200 MG/DL <170 MG/DL BORDER-LINE HIGH RISK: 200-239 MG/DL 170-199 MG/DL HIGH RISK: >240 MG/DL >200 MG/DL CLASS. FOR PRIMARY LDL CHOL PREVENTION: LDL CHOL-CHILD/ADOLESCENTS* DESIRABLE: <130 MG/DL <110 MG/DL BORDERLINE-HIGH RISK: 130-159 MG/DL 110-129 MG/DL HIGH RISK: >160 MG/DL >130 MG/DL *CHILDREN AND ADOLESCENTS REPRESENTS INDIVIDUALA AGED 2-19 YEARS EXCLUSIVE. CHRONIC KIDNEY DISEASE STAGING PER NKF: MALE [...] mL/min Normal 80 and above >32 mL/min NormalNORMAL RANGES Age WBC RBC HGB HCT MCV PLT Adult M 4.1-10.9 4.20-6.30 12.0-18.0 37.0-51.0 80-97 140-440 Adult F 4.1-10.9 4.04-5.48 12.0-18.0 37.0-51.0 80-97 140-440 0- 1 Yr 5.0-20.0 3.9-5.9 15-18 MV: 44 MV: 91 MV: 277 2-9 Yr. 6.0-17.0 3.8-5.4 11-13 MV: 37 MV: 78 MV: 300 10 Yrs. 5.0-13.0 3.8-5.4 12-15 MV: 39 MV: 80 MV: 250 NOTE: * FOR ADULT BLACK MALES AND FEMALES, NORMAL WBC IS 2.9-7.7 K/ML * FOR ADULT BLACK MALES AND FEMALES, NORMAL RBC,HGB, AND HCT IS 5% LESS SOURCE FOR DATA: [employer] 1800 OPERATION MANUAL( AUTOMATED BLOOD COUNTS AND DIFF.) APPENDIX B-3 Osmolality-Calculated 281.5 [facility] ([facility] CLASSIFICATION CHOLESTEROL FO R ADULTS CHILDREN/ADOLESCENTS* DESIRABLE: <200 MG/DL <170 MG/DL BORDER-LINE HIGH RISK: 200-239 MG/DL 170-199 MG/DL HIGH RISK: >240 MG/DL >200 MG/DL CLASS. FOR PRIMARY LDL CHOL PREVENTION: LDL CHOL-CHILD/ADOLESCENTS* DESIRABLE: <130 MG/DL <110 MG/DL BORDERLINE-HIGH RISK: 130-159 MG/DL 110-129 MG/DL HIGH RISK: >160 MG/DL >130 MG/DL *CHILDREN AND ADOLESCENTS REPRESENTS INDIVIDUALA AGED 2-19 YEARS EXCLUSIVE. CHRONIC KIDNEY DISEASE STAGING PER NKF: MALE [...] mL/min Normal 80 and above >32 mL/min NormalNORMAL RANGES Age WBC RBC HGB HCT MCV PLT Adult M 4.1-10.9 4.20-6.30 12.0-18.0 37.0-51.0 80-97 140-440 Adult F 4.1-10.9 4.04-5.48 12.0-18.0 37.0-51.0 80-97 140-440 0- 1 Yr 5.0-20.0 3.9-5.9 15-18 MV: 44 MV: 91 MV: 277 2-9 Yr. 6.0-17.0 3.8-5.4 11-13 MV: 37 MV: 78 MV: 300 10 Yrs. 5.0-13.0 3.8-5.4 12-15 MV: 39 MV: 80 MV: 250 NOTE: * FOR ADULT BLACK MALES AND FEMALES, NORMAL WBC IS 2.9-7.7 K/ML * FOR ADULT BLACK MALES AND FEMALES, NORMAL RBC,HGB, AND HCT IS 5% LESS SOURCE FOR DATA: [employer] 1800 OPERATION MANUAL( AUTOMATED BLOOD COUNTS AND DIFF.) APPENDIX B-3 Tbili 0.22 mg/dL 0.0-1.2 [facility] ([facility] CLASSIFICATION CHOLESTEROL FO R ADULTS CHILDREN/ADOLESCENTS* DESIRABLE: <200 MG/DL <170 MG/DL BORDER-LINE HIGH RISK: 200-239 MG/DL 170-199 MG/DL HIGH RISK: >240 MG/DL >200 MG/DL CLASS. FOR PRIMARY LDL CHOL PREVENTION: LDL CHOL-CHILD/ADOLESCENTS* DESIRABLE: <130 MG/DL <110 MG/DL BORDERLINE-HIGH RISK: 130-159 MG/DL 110-129 MG/DL HIGH RISK: >160 MG/DL >130 MG/DL *CHILDREN AND ADOLESCENTS REPRESENTS INDIVIDUALA AGED 2-19 YEARS EXCLUSIVE. CHRONIC KIDNEY DISEASE STAGING PER NKF: MALE [...] mL/min Normal 80 and above >32 mL/min NormalNORMAL RANGES Age WBC RBC HGB HCT MCV PLT Adult M 4.1-10.9 4.20-6.30 12.0-18.0 37.0-51.0 80-97 140-440 Adult F 4.1-10.9 4.04-5.48 12.0-18.0 37.0-51.0 80-97 140-440 0- 1 Yr 5.0-20.0 3.9-5.9 15-18 MV: 44 MV: 91 MV: 277 2-9 Yr. 6.0-17.0 3.8-5.4 11-13 MV: 37 MV: 78 MV: 300 10 Yrs. 5.0-13.0 3.8-5.4 12-15 MV: 39 MV: 80 MV: 250 NOTE: * FOR ADULT BLACK MALES AND FEMALES, NORMAL WBC IS 2.9-7.7 K/ML * FOR ADULT BLACK MALES AND FEMALES, NORMAL RBC,HGB, AND HCT IS 5% LESS SOURCE FOR DATA: [employer] 1800 OPERATION MANUAL( AUTOMATED BLOOD COUNTS AND DIFF.) APPENDIX B-3 Alt (SGPT) 12 U/L 0-41 [facility] ([facility] CLASSIFICATION CHOLESTEROL FO R ADULTS CHILDREN/ADOLESCENTS* DESIRABLE: <200 MG/DL <170 MG/DL BORDER-LINE HIGH RISK: 200-239 MG/DL 170-199 MG/DL HIGH RISK: >240 MG/DL >200 MG/DL CLASS. FOR PRIMARY LDL CHOL PREVENTION: LDL CHOL-CHILD/ADOLESCENTS* DESIRABLE: <130 MG/DL <110 MG/DL BORDERLINE-HIGH RISK: 130-159 MG/DL 110-129 MG/DL HIGH RISK: >160 MG/DL >130 MG/DL *CHILDREN AND ADOLESCENTS REPRESENTS INDIVIDUALA AGED 2-19 YEARS EXCLUSIVE. CHRONIC KIDNEY DISEASE STAGING PER NKF: MALE [...] mL/min Normal 80 and above >32 mL/min NormalNORMAL RANGES Age WBC RBC HGB HCT MCV PLT Adult M 4.1-10.9 4.20-6.30 12.0-18.0 37.0-51.0 80-97 140-440 Adult F 4.1-10.9 4.04-5.48 12.0-18.0 37.0-51.0 80-97 140-440 0- 1 Yr 5.0-20.0 3.9-5.9 15-18 MV: 44 MV: 91 MV: 277 2-9 Yr. 6.0-17.0 3.8-5.4 11-13 MV: 37 MV: 78 MV: 300 10 Yrs. 5.0-13.0 3.8-5.4 12-15 MV: 39 MV: 80 MV: 250 NOTE: * FOR ADULT BLACK MALES AND FEMALES, NORMAL WBC IS 2.9-7.7 K/ML * FOR ADULT BLACK MALES AND FEMALES, NORMAL RBC,HGB, AND HCT IS 5% LESS SOURCE FOR DATA: [employer] 1800 OPERATION MANUAL( AUTOMATED BLOOD COUNTS AND DIFF.) APPENDIX B-3 Ast (Sgot) 13 U/L 0-40 [facility] ([facility] CLASSIFICATION CHOLESTEROL FO R ADULTS CHILDREN/ADOLESCENTS* DESIRABLE: <200 MG/DL <170 MG/DL BORDER-LINE HIGH RISK: 200-239 MG/DL 170-199 MG/DL HIGH RISK: >240 MG/DL >200 MG/DL CLASS. FOR PRIMARY LDL CHOL PREVENTION: LDL CHOL-CHILD/ADOLESCENTS* DESIRABLE: <130 MG/DL <110 MG/DL BORDERLINE-HIGH RISK: 130-159 MG/DL 110-129 MG/DL HIGH RISK: >160 MG/DL >130 MG/DL *CHILDREN AND ADOLESCENTS REPRESENTS INDIVIDUALA AGED 2-19 YEARS EXCLUSIVE. CHRONIC KIDNEY DISEASE STAGING PER NKF: MALE [...] mL/min Normal 80 and above >32 mL/min NormalNORMAL RANGES Age WBC RBC HGB HCT MCV PLT Adult M 4.1-10.9 4.20-6.30 12.0-18.0 37.0-51.0 80-97 140-440 Adult F 4.1-10.9 4.04-5.48 12.0-18.0 37.0-51.0 80-97 140-440 0- 1 Yr 5.0-20.0 3.9-5.9 15-18 MV: 44 MV: 91 MV: 277 2-9 Yr. 6.0-17.0 3.8-5.4 11-13 MV: 37 MV: 78 MV: 300 10 Yrs. 5.0-13.0 3.8-5.4 12-15 MV: 39 MV: 80 MV: 250 NOTE: * FOR ADULT BLACK MALES AND FEMALES, NORMAL WBC IS 2.9-7.7 K/ML * FOR ADULT BLACK MALES AND FEMALES, NORMAL RBC,HGB, AND HCT IS 5% LESS SOURCE FOR DATA: [employer] 1800 OPERATION MANUAL( AUTOMATED BLOOD COUNTS AND DIFF.) APPENDIX B-3 eGFR Non-Afr. Fijian 92 # [facility] ([facility] CLASSIFICATION CHOLESTEROL FO R ADULTS CHILDREN/ADOLESCENTS* DESIRABLE: <200 MG/DL <170 MG/DL BORDER-LINE HIGH RISK: 200-239 MG/DL 170-199 MG/DL HIGH RISK: >240 MG/DL >200 MG/DL CLASS. FOR PRIMARY LDL CHOL PREVENTION: LDL CHOL-CHILD/ADOLESCENTS* DESIRABLE: <130 MG/DL <110 MG/DL BORDERLINE-HIGH RISK: 130-159 MG/DL 110-129 MG/DL HIGH RISK: >160 MG/DL >130 MG/DL *CHILDREN AND ADOLESCENTS REPRESENTS INDIVIDUALA AGED 2-19 YEARS EXCLUSIVE. CHRONIC KIDNEY DISEASE STAGING PER NKF: MALE [...] mL/min Normal 80 and above >32 mL/min NormalNORMAL RANGES Age WBC RBC HGB HCT MCV PLT Adult M 4.1-10.9 4.20-6.30 12.0-18.0 37.0-51.0 80-97 140-440 Adult F 4.1-10.9 4.04-5.48 12.0-18.0 37.0-51.0 80-97 140-440 0- 1 Yr 5.0-20.0 3.9-5.9 15-18 MV: 44 MV: 91 MV: 277 2-9 Yr. 6.0-17.0 3.8-5.4 11-13 MV: 37 MV: 78 MV: 300 10 Yrs. 5.0-13.0 3.8-5.4 12-15 MV: 39 MV: 80 MV: 250 NOTE: * FOR ADULT BLACK MALES AND FEMALES, NORMAL WBC IS 2.9-7.7 K/ML * FOR ADULT BLACK MALES AND FEMALES, NORMAL RBC,HGB, AND HCT IS 5% LESS SOURCE FOR DATA: [employer] 1800 OPERATION MANUAL( AUTOMATED BLOOD COUNTS AND DIFF.) APPENDIX B-3 Anion Gap 17 mmol/L [facility] ([facility] CLASSIFICATION CHOLESTEROL FO R ADULTS CHILDREN/ADOLESCENTS* DESIRABLE: <200 MG/DL <170 MG/DL BORDER-LINE HIGH RISK: 200-239 MG/DL 170-199 MG/DL HIGH RISK: >240 MG/DL >200 MG/DL CLASS. FOR PRIMARY LDL CHOL PREVENTION: LDL CHOL-CHILD/ADOLESCENTS* DESIRABLE: <130 MG/DL <110 MG/DL BORDERLINE-HIGH RISK: 130-159 MG/DL 110-129 MG/DL HIGH RISK: >160 MG/DL >130 MG/DL *CHILDREN AND ADOLESCENTS REPRESENTS INDIVIDUALA AGED 2-19 YEARS EXCLUSIVE. CHRONIC KIDNEY DISEASE STAGING PER NKF: MALE [...] mL/min Normal 80 and above >32 mL/min NormalNORMAL RANGES Age WBC RBC HGB HCT MCV PLT Adult M 4.1-10.9 4.20-6.30 12.0-18.0 37.0-51.0 80-97 140-440 Adult F 4.1-10.9 4.04-5.48 12.0-18.0 37.0-51.0 80-97 140-440 0- 1 Yr 5.0-20.0 3.9-5.9 15-18 MV: 44 MV: 91 MV: 277 2-9 Yr. 6.0-17.0 3.8-5.4 11-13 MV: 37 MV: 78 MV: 300 10 Yrs. 5.0-13.0 3.8-5.4 12-15 MV: 39 MV: 80 MV: 250 NOTE: * FOR ADULT BLACK MALES AND FEMALES, NORMAL WBC IS 2.9-7.7 K/ML * FOR ADULT BLACK MALES AND FEMALES, NORMAL RBC,HGB, AND HCT IS 5% LESS SOURCE FOR DATA: [employer] 1800 OPERATION MANUAL( AUTOMATED BLOOD COUNTS AND DIFF.) APPENDIX B-3 eGFR 106 # [facility] ( [facility] CLASSIFICATION CHOLESTEROL FO R ADULTS CHILDREN/ADOLESCENTS* DESIRABLE: <200 MG/DL <170 MG/DL BORDER-LINE HIGH RISK: 200-239 MG/DL 170-199 MG/DL HIGH RISK: >240 MG/DL >200 MG/DL CLASS. FOR PRIMARY LDL CHOL PREVENTION: LDL CHOL-CHILD/ADOLESCENTS* DESIRABLE: <130 MG/DL <110 MG/DL BORDERLINE-HIGH RISK: 130-159 MG/DL 110-129 MG/DL HIGH RISK: >160 MG/DL >130 MG/DL *CHILDREN AND ADOLESCENTS REPRESENTS INDIVIDUALA AGED 2-19 YEARS EXCLUSIVE. CHRONIC KIDNEY DISEASE STAGING PER NKF: MALE [...] mL/min Normal 80 and above >32 mL/min NormalNORMAL RANGES Age WBC RBC HGB HCT MCV PLT Adult M 4.1-10.9 4.20-6.30 12.0-18.0 37.0-51.0 80-97 140-440 Adult F 4.1-10.9 4.04-5.48 12.0-18.0 37.0-51.0 80-97 140-440 0- 1 Yr 5.0-20.0 3.9-5.9 15-18 MV: 44 MV: 91 MV: 277 2-9 Yr. 6.0-17.0 3.8-5.4 11-13 MV: 37 MV: 78 MV: 300 10 Yrs. 5.0-13.0 3.8-5.4 12-15 MV: 39 MV: 80 MV: 250 NOTE: * FOR ADULT BLACK MALES AND FEMALES, NORMAL WBC IS 2.9-7.7 K/ML * FOR ADULT BLACK MALES AND FEMALES, NORMAL RBC,HGB, AND HCT IS 5% LESS SOURCE FOR DATA: [employer] DYN 1800 OPERATION MANUAL( AUTOMATED BLOOD COUNTS AND DIFF.) APPENDIX B-3 ID Date Data Source [id number] 02/12/2020 02:15:00 PM EDT [facility] ([facility] Name Value Range Interpretation Code Description Data Trina rce(s) Supporting Document(s) HGB 12.2 g/dL 12.0-18.0 [facility] ([facility] CLASSIFICATION CHOLESTEROL FO R ADULTS CHILDREN/ADOLESCENTS* DESIRABLE: <200 MG/DL <170 MG/DL BORDER-LINE HIGH RISK: 200-239 MG/DL 170-199 MG/DL HIGH RISK: >240 MG/DL >200 MG/DL CLASS. FOR PRIMARY LDL CHOL PREVENTION: LDL CHOL-CHILD/ADOLESCENTS* DESIRABLE: <130 MG/DL <110 MG/DL BORDERLINE-HIGH RISK: 130-159 MG/DL 110-129 MG/DL HIGH RISK: >160 MG/DL >130 MG/DL *CHILDREN AND ADOLESCENTS REPRESENTS INDIVIDUALA AGED 2-19 YEARS EXCLUSIVE. CHRONIC KIDNEY DISEASE STAGING PER NKF: MALE [...] mL/min Normal 80 and above >32 mL/min NormalNORMAL RANGES Age WBC RBC HGB HCT MCV PLT Adult M 4.1-10.9 4.20-6.30 12.0-18.0 37.0-51.0 80-97 140-440 Adult F 4.1-10.9 4.04-5.48 12.0-18.0 37.0-51.0 80-97 140-440 0- 1 Yr 5.0-20.0 3.9-5.9 15-18 MV: 44 MV: 91 MV: 277 2-9 Yr. 6.0-17.0 3.8-5.4 11-13 MV: 37 MV: 78 MV: 300 10 Yrs. 5.0-13.0 3.8-5.4 12-15 MV: 39 MV: 80 MV: 250 NOTE: * FOR ADULT BLACK MALES AND FEMALES, NORMAL WBC IS 2.9-7.7 K/ML * FOR ADULT BLACK MALES AND FEMALES, NORMAL RBC,HGB, AND HCT IS 5% LESS SOURCE FOR DATA: [employer] DYN 1800 OPERATION MANUAL( AUTOMATED BLOOD COUNTS AND DIFF.) APPENDIX B-3 RBC 4.74 10E6/uL 4.20-6.30 [facility] ([facility] CLASSIFICATION CHOLESTEROL FO R ADULTS CHILDREN/ADOLESCENTS* DESIRABLE: <200 MG/DL <170 MG/DL BORDER-LINE HIGH RISK: 200-239 MG/DL 170-199 MG/DL HIGH RISK: >240 MG/DL >200 MG/DL CLASS. FOR PRIMARY LDL CHOL PREVENTION: LDL CHOL-CHILD/ADOLESCENTS* DESIRABLE: <130 MG/DL <110 MG/DL BORDERLINE-HIGH RISK: 130-159 MG/DL 110-129 MG/DL HIGH RISK: >160 MG/DL >130 MG/DL *CHILDREN AND ADOLESCENTS REPRESENTS INDIVIDUALA AGED 2-19 YEARS EXCLUSIVE. CHRONIC KIDNEY DISEASE STAGING PER NKF: MALE [...] mL/min Normal 80 and above >32 mL/min NormalNORMAL RANGES Age WBC RBC HGB HCT MCV PLT Adult M 4.1-10.9 4.20-6.30 12.0-18.0 37.0-51.0 80-97 140-440 Adult F 4.1-10.9 4.04-5.48 12.0-18.0 37.0-51.0 80-97 140-440 0- 1 Yr 5.0-20.0 3.9-5.9 15-18 MV: 44 MV: 91 MV: 277 2-9 Yr. 6.0-17.0 3.8-5.4 11-13 MV: 37 MV: 78 MV: 300 10 Yrs. 5.0-13.0 3.8-5.4 12-15 MV: 39 MV: 80 MV: 250 NOTE: * FOR ADULT BLACK MALES AND FEMALES, NORMAL WBC IS 2.9-7.7 K/ML * FOR ADULT BLACK MALES AND FEMALES, NORMAL RBC,HGB, AND HCT IS 5% LESS SOURCE FOR DATA: [employer] 1800 OPERATION MANUAL( AUTOMATED BLOOD COUNTS AND DIFF.) APPENDIX B-3 WBC 9.6 10E3/uL 4.1-10.9 [facility] ([facility] CLASSIFICATION CHOLESTEROL FO R ADULTS CHILDREN/ADOLESCENTS* DESIRABLE: <200 MG/DL <170 MG/DL BORDER-LINE HIGH RISK: 200-239 MG/DL 170-199 MG/DL HIGH RISK: >240 MG/DL >200 MG/DL CLASS. FOR PRIMARY LDL CHOL PREVENTION: LDL CHOL-CHILD/ADOLESCENTS* DESIRABLE: <130 MG/DL <110 MG/DL BORDERLINE-HIGH RISK: 130-159 MG/DL 110-129 MG/DL HIGH RISK: >160 MG/DL >130 MG/DL *CHILDREN AND ADOLESCENTS REPRESENTS INDIVIDUALA AGED 2-19 YEARS EXCLUSIVE. CHRONIC KIDNEY DISEASE STAGING PER NKF: MALE [...] mL/min Normal 80 and above >32 mL/min NormalNORMAL RANGES Age WBC RBC HGB HCT MCV PLT Adult M 4.1-10.9 4.20-6.30 12.0-18.0 37.0-51.0 80-97 140-440 Adult F 4.1-10.9 4.04-5.48 12.0-18.0 37.0-51.0 80-97 140-440 0- 1 Yr 5.0-20.0 3.9-5.9 15-18 MV: 44 MV: 91 MV: 277 2-9 Yr. 6.0-17.0 3.8-5.4 11-13 MV: 37 MV: 78 MV: 300 10 Yrs. 5.0-13.0 3.8-5.4 12-15 MV: 39 MV: 80 MV: 250 NOTE: * FOR ADULT BLACK MALES AND FEMALES, NORMAL WBC IS 2.9-7.7 K/ML * FOR ADULT BLACK MALES AND FEMALES, NORMAL RBC,HGB, AND HCT IS 5% LESS SOURCE FOR DATA: [employer] 1800 OPERATION MANUAL( AUTOMATED BLOOD COUNTS AND DIFF.) APPENDIX B-3 MCH 25.7 pg 26.0-32.0 Below low normal [facility] ( [facility] CLASSIFICATION CHOLESTEROL FO R ADULTS CHILDREN/ADOLESCENTS* DESIRABLE: <200 MG/DL <170 MG/DL BORDER-LINE HIGH RISK: 200-239 MG/DL 170-199 MG/DL HIGH RISK: >240 MG/DL >200 MG/DL CLASS. FOR PRIMARY LDL CHOL PREVENTION: LDL CHOL-CHILD/ADOLESCENTS* DESIRABLE: <130 MG/DL <110 MG/DL BORDERLINE-HIGH RISK: 130-159 MG/DL 110-129 MG/DL HIGH RISK: >160 MG/DL >130 MG/DL *CHILDREN AND ADOLESCENTS REPRESENTS INDIVIDUALA AGED 2-19 YEARS EXCLUSIVE. CHRONIC KIDNEY DISEASE STAGING PER NKF: MALE [...] mL/min Normal 80 and above >32 mL/min NormalNORMAL RANGES Age WBC RBC HGB HCT MCV PLT Adult M 4.1-10.9 4.20-6.30 12.0-18.0 37.0-51.0 80-97 140-440 Adult F 4.1-10.9 4.04-5.48 12.0-18.0 37.0-51.0 80-97 140-440 0- 1 Yr 5.0-20.0 3.9-5.9 15-18 MV: 44 MV: 91 MV: 277 2-9 Yr. 6.0-17.0 3.8-5.4 11-13 MV: 37 MV: 78 MV: 300 10 Yrs. 5.0-13.0 3.8-5.4 12-15 MV: 39 MV: 80 MV: 250 NOTE: * FOR ADULT BLACK MALES AND FEMALES, NORMAL WBC IS 2.9-7.7 K/ML * FOR ADULT BLACK MALES AND FEMALES, NORMAL RBC,HGB, AND HCT IS 5% LESS SOURCE FOR DATA: [employer] 1800 OPERATION MANUAL( AUTOMATED BLOOD COUNTS AND DIFF.) APPENDIX B-3 MCHC 29.7 g/dL 31.0-36.0 Below low normal [facility] ( [facility] CLASSIFICATION CHOLESTEROL FO R ADULTS CHILDREN/ADOLESCENTS* DESIRABLE: <200 MG/DL <170 MG/DL BORDER-LINE HIGH RISK: 200-239 MG/DL 170-199 MG/DL HIGH RISK: >240 MG/DL >200 MG/DL CLASS. FOR PRIMARY LDL CHOL PREVENTION: LDL CHOL-CHILD/ADOLESCENTS* DESIRABLE: <130 MG/DL <110 MG/DL BORDERLINE-HIGH RISK: 130-159 MG/DL 110-129 MG/DL HIGH RISK: >160 MG/DL >130 MG/DL *CHILDREN AND ADOLESCENTS REPRESENTS INDIVIDUALA AGED 2-19 YEARS EXCLUSIVE. CHRONIC KIDNEY DISEASE STAGING PER NKF: MALE [...] mL/min Normal 80 and above >32 mL/min NormalNORMAL RANGES Age WBC RBC HGB HCT MCV PLT Adult M 4.1-10.9 4.20-6.30 12.0-18.0 37.0-51.0 80-97 140-440 Adult F 4.1-10.9 4.04-5.48 12.0-18.0 37.0-51.0 80-97 140-440 0- 1 Yr 5.0-20.0 3.9-5.9 15-18 MV: 44 MV: 91 MV: 277 2-9 Yr. 6.0-17.0 3.8-5.4 11-13 MV: 37 MV: 78 MV: 300 10 Yrs. 5.0-13.0 3.8-5.4 12-15 MV: 39 MV: 80 MV: 250 NOTE: * FOR ADULT BLACK MALES AND FEMALES, NORMAL WBC IS 2.9-7.7 K/ML * FOR ADULT BLACK MALES AND FEMALES, NORMAL RBC,HGB, AND HCT IS 5% LESS SOURCE FOR DATA: [employer] 1800 OPERATION MANUAL( AUTOMATED BLOOD COUNTS AND DIFF.) APPENDIX B-3 MCV 86.7 fL 80.0-97.0 [facility] ([facility] CLASSIFICATION CHOLESTEROL FO R ADULTS CHILDREN/ADOLESCENTS* DESIRABLE: <200 MG/DL <170 MG/DL BORDER-LINE HIGH RISK: 200-239 MG/DL 170-199 MG/DL HIGH RISK: >240 MG/DL >200 MG/DL CLASS. FOR PRIMARY LDL CHOL PREVENTION: LDL CHOL-CHILD/ADOLESCENTS* DESIRABLE: <130 MG/DL <110 MG/DL BORDERLINE-HIGH RISK: 130-159 MG/DL 110-129 MG/DL HIGH RISK: >160 MG/DL >130 MG/DL *CHILDREN AND ADOLESCENTS REPRESENTS INDIVIDUALA AGED 2-19 YEARS EXCLUSIVE. CHRONIC KIDNEY DISEASE STAGING PER NKF: MALE [...] mL/min Normal 80 and above >32 mL/min NormalNORMAL RANGES Age WBC RBC HGB HCT MCV PLT Adult M 4.1-10.9 4.20-6.30 12.0-18.0 37.0-51.0 80-97 140-440 Adult F 4.1-10.9 4.04-5.48 12.0-18.0 37.0-51.0 80-97 140-440 0- 1 Yr 5.0-20.0 3.9-5.9 15-18 MV: 44 MV: 91 MV: 277 2-9 Yr. 6.0-17.0 3.8-5.4 11-13 MV: 37 MV: 78 MV: 300 10 Yrs. 5.0-13.0 3.8-5.4 12-15 MV: 39 MV: 80 MV: 250 NOTE: * FOR ADULT BLACK MALES AND FEMALES, NORMAL WBC IS 2.9-7.7 K/ML * FOR ADULT BLACK MALES AND FEMALES, NORMAL RBC,HGB, AND HCT IS 5% LESS SOURCE FOR DATA: [employer] DYN 1800 OPERATION MANUAL( AUTOMATED BLOOD COUNTS AND DIFF.) APPENDIX B-3 HCT 41.1 % 37.0-51.0 [facility] ([facility] CLASSIFICATION CHOLESTEROL FO R ADULTS CHILDREN/ADOLESCENTS* DESIRABLE: <200 MG/DL <170 MG/DL BORDER-LINE HIGH RISK: 200-239 MG/DL 170-199 MG/DL HIGH RISK: >240 MG/DL >200 MG/DL CLASS. FOR PRIMARY LDL CHOL PREVENTION: LDL CHOL-CHILD/ADOLESCENTS* DESIRABLE: <130 MG/DL <110 MG/DL BORDERLINE-HIGH RISK: 130-159 MG/DL 110-129 MG/DL HIGH RISK: >160 MG/DL >130 MG/DL *CHILDREN AND ADOLESCENTS REPRESENTS INDIVIDUALA AGED 2-19 YEARS EXCLUSIVE. CHRONIC KIDNEY DISEASE STAGING PER NKF: MALE [...] mL/min Normal 80 and above >32 mL/min NormalNORMAL RANGES Age WBC RBC HGB HCT MCV PLT Adult M 4.1-10.9 4.20-6.30 12.0-18.0 37.0-51.0 80-97 140-440 Adult F 4.1-10.9 4.04-5.48 12.0-18.0 37.0-51.0 80-97 140-440 0- 1 Yr 5.0-20.0 3.9-5.9 15-18 MV: 44 MV: 91 MV: 277 2-9 Yr. 6.0-17.0 3.8-5.4 11-13 MV: 37 MV: 78 MV: 300 10 Yrs. 5.0-13.0 3.8-5.4 12-15 MV: 39 MV: 80 MV: 250 NOTE: * FOR ADULT BLACK MALES AND FEMALES, NORMAL WBC IS 2.9-7.7 K/ML * FOR ADULT BLACK MALES AND FEMALES, NORMAL RBC,HGB, AND HCT IS 5% LESS SOURCE FOR DATA: [employer] 1800 OPERATION MANUAL( AUTOMATED BLOOD COUNTS AND DIFF.) APPENDIX B-3 PLT 257 10E3/uL 140-440 [facility] ([facility] CLASSIFICATION CHOLESTEROL FO R ADULTS CHILDREN/ADOLESCENTS* DESIRABLE: <200 MG/DL <170 MG/DL BORDER-LINE HIGH RISK: 200-239 MG/DL 170-199 MG/DL HIGH RISK: >240 MG/DL >200 MG/DL CLASS. FOR PRIMARY LDL CHOL PREVENTION: LDL CHOL-CHILD/ADOLESCENTS* DESIRABLE: <130 MG/DL <110 MG/DL BORDERLINE-HIGH RISK: 130-159 MG/DL 110-129 MG/DL HIGH RISK: >160 MG/DL >130 MG/DL *CHILDREN AND ADOLESCENTS REPRESENTS INDIVIDUALA AGED 2-19 YEARS EXCLUSIVE. CHRONIC KIDNEY DISEASE STAGING PER NKF: MALE [...] mL/min Normal 80 and above >32 mL/min NormalNORMAL RANGES Age WBC RBC HGB HCT MCV PLT Adult M 4.1-10.9 4.20-6.30 12.0-18.0 37.0-51.0 80-97 140-440 Adult F 4.1-10.9 4.04-5.48 12.0-18.0 37.0-51.0 80-97 140-440 0- 1 Yr 5.0-20.0 3.9-5.9 15-18 MV: 44 MV: 91 MV: 277 2-9 Yr. 6.0-17.0 3.8-5.4 11-13 MV: 37 MV: 78 MV: 300 10 Yrs. 5.0-13.0 3.8-5.4 12-15 MV: 39 MV: 80 MV: 250 NOTE: * FOR ADULT BLACK MALES AND FEMALES, NORMAL WBC IS 2.9-7.7 K/ML * FOR ADULT BLACK MALES AND FEMALES, NORMAL RBC,HGB, AND HCT IS 5% LESS SOURCE FOR DATA: [employer] 1800 OPERATION MANUAL( AUTOMATED BLOOD COUNTS AND DIFF.) APPENDIX B-3 Lym% 17.7 % 10.0-58.5 [facility] ([facility] CLASSIFICATION CHOLESTEROL FO R ADULTS CHILDREN/ADOLESCENTS* DESIRABLE: <200 MG/DL <170 MG/DL BORDER-LINE HIGH RISK: 200-239 MG/DL 170-199 MG/DL HIGH RISK: >240 MG/DL >200 MG/DL CLASS. FOR PRIMARY LDL CHOL PREVENTION: LDL CHOL-CHILD/ADOLESCENTS* DESIRABLE: <130 MG/DL <110 MG/DL BORDERLINE-HIGH RISK: 130-159 MG/DL 110-129 MG/DL HIGH RISK: >160 MG/DL >130 MG/DL *CHILDREN AND ADOLESCENTS REPRESENTS INDIVIDUALA AGED 2-19 YEARS EXCLUSIVE. CHRONIC KIDNEY DISEASE STAGING PER NKF: MALE [...] mL/min Normal 80 and above >32 mL/min NormalNORMAL RANGES Age WBC RBC HGB HCT MCV PLT Adult M 4.1-10.9 4.20-6.30 12.0-18.0 37.0-51.0 80-97 140-440 Adult F 4.1-10.9 4.04-5.48 12.0-18.0 37.0-51.0 80-97 140-440 0- 1 Yr 5.0-20.0 3.9-5.9 15-18 MV: 44 MV: 91 MV: 277 2-9 Yr. 6.0-17.0 3.8-5.4 11-13 MV: 37 MV: 78 MV: 300 10 Yrs. 5.0-13.0 3.8-5.4 12-15 MV: 39 MV: 80 MV: 250 NOTE: * FOR ADULT BLACK MALES AND FEMALES, NORMAL WBC IS 2.9-7.7 K/ML * FOR ADULT BLACK MALES AND FEMALES, NORMAL RBC,HGB, AND HCT IS 5% LESS SOURCE FOR DATA: [employer] 1800 OPERATION MANUAL( AUTOMATED BLOOD COUNTS AND DIFF.) APPENDIX B-3 RDW-CV 14.6 % 11.5-14.5 Above high normal [facility] ([facility] CLASSIFICATION CHOLESTEROL FO R ADULTS CHILDREN/ADOLESCENTS* DESIRABLE: <200 MG/DL <170 MG/DL BORDER-LINE HIGH RISK: 200-239 MG/DL 170-199 MG/DL HIGH RISK: >240 MG/DL >200 MG/DL CLASS. FOR PRIMARY LDL CHOL PREVENTION: LDL CHOL-CHILD/ADOLESCENTS* DESIRABLE: <130 MG/DL <110 MG/DL BORDERLINE-HIGH RISK: 130-159 MG/DL 110-129 MG/DL HIGH RISK: >160 MG/DL >130 MG/DL *CHILDREN AND ADOLESCENTS REPRESENTS INDIVIDUALA AGED 2-19 YEARS EXCLUSIVE. CHRONIC KIDNEY DISEASE STAGING PER NKF: MALE [...] mL/min Normal 80 and above >32 mL/min NormalNORMAL RANGES Age WBC RBC HGB HCT MCV PLT Adult M 4.1-10.9 4.20-6.30 12.0-18.0 37.0-51.0 80-97 140-440 Adult F 4.1-10.9 4.04-5.48 12.0-18.0 37.0-51.0 80-97 140-440 0- 1 Yr 5.0-20.0 3.9-5.9 15-18 MV: 44 MV: 91 MV: 277 2-9 Yr. 6.0-17.0 3.8-5.4 11-13 MV: 37 MV: 78 MV: 300 10 Yrs. 5.0-13.0 3.8-5.4 12-15 MV: 39 MV: 80 MV: 250 NOTE: * FOR ADULT BLACK MALES AND FEMALES, NORMAL WBC IS 2.9-7.7 K/ML * FOR ADULT BLACK MALES AND FEMALES, NORMAL RBC,HGB, AND HCT IS 5% LESS SOURCE FOR DATA: [employer] 1800 OPERATION MANUAL( AUTOMATED BLOOD COUNTS AND DIFF.) APPENDIX B-3 Neut% 74.3 % 37.0-92.0 [facility] ([facility] CLASSIFICATION CHOLESTEROL FO R ADULTS CHILDREN/ADOLESCENTS* DESIRABLE: <200 MG/DL <170 MG/DL BORDER-LINE HIGH RISK: 200-239 MG/DL 170-199 MG/DL HIGH RISK: >240 MG/DL >200 MG/DL CLASS. FOR PRIMARY LDL CHOL PREVENTION: LDL CHOL-CHILD/ADOLESCENTS* DESIRABLE: <130 MG/DL <110 MG/DL BORDERLINE-HIGH RISK: 130-159 MG/DL 110-129 MG/DL HIGH RISK: >160 MG/DL >130 MG/DL *CHILDREN AND ADOLESCENTS REPRESENTS INDIVIDUALA AGED 2-19 YEARS EXCLUSIVE. CHRONIC KIDNEY DISEASE STAGING PER NKF: MALE [...] mL/min Normal 80 and above >32 mL/min NormalNORMAL RANGES Age WBC RBC HGB HCT MCV PLT Adult M 4.1-10.9 4.20-6.30 12.0-18.0 37.0-51.0 80-97 140-440 Adult F 4.1-10.9 4.04-5.48 12.0-18.0 37.0-51.0 80-97 140-440 0- 1 Yr 5.0-20.0 3.9-5.9 15-18 MV: 44 MV: 91 MV: 277 2-9 Yr. 6.0-17.0 3.8-5.4 11-13 MV: 37 MV: 78 MV: 300 10 Yrs. 5.0-13.0 3.8-5.4 12-15 MV: 39 MV: 80 MV: 250 NOTE: * FOR ADULT BLACK MALES AND FEMALES, NORMAL WBC IS 2.9-7.7 K/ML * FOR ADULT BLACK MALES AND FEMALES, NORMAL RBC,HGB, AND HCT IS 5% LESS SOURCE FOR DATA: [employer] DYN 1800 OPERATION MANUAL( AUTOMATED BLOOD COUNTS AND DIFF.) APPENDIX B-3 MXD% 8.0 % 0.1-24.0 [facility] CLASSIFICATION CHOLESTEROL FO R ADULTS CHILDREN/ADOLESCENTS* DESIRABLE: <200 MG/DL <170 MG/DL BORDER-LINE HIGH RISK: 200-239 MG/DL 170-199 MG/DL HIGH RISK: >240 MG/DL >200 MG/DL CLASS. FOR PRIMARY LDL CHOL PREVENTION: LDL CHOL-CHILD/ADOLESCENTS* DESIRABLE: <130 MG/DL <110 MG/DL BORDERLINE-HIGH RISK: 130-159 MG/DL 110-129 MG/DL HIGH RISK: >160 MG/DL >130 MG/DL *CHILDREN AND ADOLESCENTS REPRESENTS INDIVIDUALA AGED 2-19 YEARS EXCLUSIVE. CHRONIC KIDNEY DISEASE STAGING PER NKF: MALE [...] mL/min Normal 80 and above >32 mL/min NormalNORMAL RANGES Age WBC RBC HGB HCT MCV PLT Adult M 4.1-10.9 4.20-6.30 12.0-18.0 37.0-51.0 80-97 140-440 Adult F 4.1-10.9 4.04-5.48 12.0-18.0 37.0-51.0 80-97 140-440 0- 1 Yr 5.0-20.0 3.9-5.9 15-18 MV: 44 MV: 91 MV: 277 2-9 Yr. 6.0-17.0 3.8-5.4 11-13 MV: 37 MV: 78 MV: 300 10 Yrs. 5.0-13.0 3.8-5.4 12-15 MV: 39 MV: 80 MV: 250 NOTE: * FOR ADULT BLACK MALES AND FEMALES, NORMAL WBC IS 2.9-7.7 K/ML * FOR ADULT BLACK MALES AND FEMALES, NORMAL RBC,HGB, AND HCT IS 5% LESS SOURCE FOR DATA: [employer] 1800 OPERATION MANUAL( AUTOMATED BLOOD COUNTS AND DIFF.) APPENDIX B-3 Lym# 1.7 10E3/uL 0.6-4.1 [facility] ([facility] CLASSIFICATION CHOLESTEROL FO R ADULTS CHILDREN/ADOLESCENTS* DESIRABLE: <200 MG/DL <170 MG/DL BORDER-LINE HIGH RISK: 200-239 MG/DL 170-199 MG/DL HIGH RISK: >240 MG/DL >200 MG/DL CLASS. FOR PRIMARY LDL CHOL PREVENTION: LDL CHOL-CHILD/ADOLESCENTS* DESIRABLE: <130 MG/DL <110 MG/DL BORDERLINE-HIGH RISK: 130-159 MG/DL 110-129 MG/DL HIGH RISK: >160 MG/DL >130 MG/DL *CHILDREN AND ADOLESCENTS REPRESENTS INDIVIDUALA AGED 2-19 YEARS EXCLUSIVE. CHRONIC KIDNEY DISEASE STAGING PER NKF: MALE [...] mL/min Normal 80 and above >32 mL/min NormalNORMAL RANGES Age WBC RBC HGB HCT MCV PLT Adult M 4.1-10.9 4.20-6.30 12.0-18.0 37.0-51.0 80-97 140-440 Adult F 4.1-10.9 4.04-5.48 12.0-18.0 37.0-51.0 80-97 140-440 0- 1 Yr 5.0-20.0 3.9-5.9 15-18 MV: 44 MV: 91 MV: 277 2-9 Yr. 6.0-17.0 3.8-5.4 11-13 MV: 37 MV: 78 MV: 300 10 Yrs. 5.0-13.0 3.8-5.4 12-15 MV: 39 MV: 80 MV: 250 NOTE: * FOR ADULT BLACK MALES AND FEMALES, NORMAL WBC IS 2.9-7.7 K/ML * FOR ADULT BLACK MALES AND FEMALES, NORMAL RBC,HGB, AND HCT IS 5% LESS SOURCE FOR DATA: [employer] 1800 OPERATION MANUAL( AUTOMATED BLOOD COUNTS AND DIFF.) APPENDIX B-3 MPV 10.7 fL 9.0-13.0 [facility] ([facility] CLASSIFICATION CHOLESTEROL FO R ADULTS CHILDREN/ADOLESCENTS* DESIRABLE: <200 MG/DL <170 MG/DL BORDER-LINE HIGH RISK: 200-239 MG/DL 170-199 MG/DL HIGH RISK: >240 MG/DL >200 MG/DL CLASS. FOR PRIMARY LDL CHOL PREVENTION: LDL CHOL-CHILD/ADOLESCENTS* DESIRABLE: <130 MG/DL <110 MG/DL BORDERLINE-HIGH RISK: 130-159 MG/DL 110-129 MG/DL HIGH RISK: >160 MG/DL >130 MG/DL *CHILDREN AND ADOLESCENTS REPRESENTS INDIVIDUALA AGED 2-19 YEARS EXCLUSIVE. CHRONIC KIDNEY DISEASE STAGING PER NKF: MALE [...] mL/min Normal 80 and above >32 mL/min NormalNORMAL RANGES Age WBC RBC HGB HCT MCV PLT Adult M 4.1-10.9 4.20-6.30 12.0-18.0 37.0-51.0 80-97 140-440 Adult F 4.1-10.9 4.04-5.48 12.0-18.0 37.0-51.0 80-97 140-440 0- 1 Yr 5.0-20.0 3.9-5.9 15-18 MV: 44 MV: 91 MV: 277 2-9 Yr. 6.0-17.0 3.8-5.4 11-13 MV: 37 MV: 78 MV: 300 10 Yrs. 5.0-13.0 3.8-5.4 12-15 MV: 39 MV: 80 MV: 250 NOTE: * FOR ADULT BLACK MALES AND FEMALES, NORMAL WBC IS 2.9-7.7 K/ML * FOR ADULT BLACK MALES AND FEMALES, NORMAL RBC,HGB, AND HCT IS 5% LESS SOURCE FOR DATA: [employer]YN 1800 OPERATION MANUAL( AUTOMATED BLOOD COUNTS AND DIFF.) APPENDIX B-3 MXD# 0.8 10E3/uL 0.0-1.8 [facility] ([facility] CLASSIFICATION CHOLESTEROL FO R ADULTS CHILDREN/ADOLESCENTS* DESIRABLE: <200 MG/DL <170 MG/DL BORDER-LINE HIGH RISK: 200-239 MG/DL 170-199 MG/DL HIGH RISK: >240 MG/DL >200 MG/DL CLASS. FOR PRIMARY LDL CHOL PREVENTION: LDL CHOL-CHILD/ADOLESCENTS* DESIRABLE: <130 MG/DL <110 MG/DL BORDERLINE-HIGH RISK: 130-159 MG/DL 110-129 MG/DL HIGH RISK: >160 MG/DL >130 MG/DL *CHILDREN AND ADOLESCENTS REPRESENTS INDIVIDUALA AGED 2-19 YEARS EXCLUSIVE. CHRONIC KIDNEY DISEASE STAGING PER NKF: MALE [...] mL/min Normal 80 and above >32 mL/min NormalNORMAL RANGES Age WBC RBC HGB HCT MCV PLT Adult M 4.1-10.9 4.20-6.30 12.0-18.0 37.0-51.0 80-97 140-440 Adult F 4.1-10.9 4.04-5.48 12.0-18.0 37.0-51.0 80-97 140-440 0- 1 Yr 5.0-20.0 3.9-5.9 15-18 MV: 44 MV: 91 MV: 277 2-9 Yr. 6.0-17.0 3.8-5.4 11-13 MV: 37 MV: 78 MV: 300 10 Yrs. 5.0-13.0 3.8-5.4 12-15 MV: 39 MV: 80 MV: 250 NOTE: * FOR ADULT BLACK MALES AND FEMALES, NORMAL WBC IS 2.9-7.7 K/ML * FOR ADULT BLACK MALES AND FEMALES, NORMAL RBC,HGB, AND HCT IS 5% LESS SOURCE FOR DATA: [employer] 1800 OPERATION MANUAL( AUTOMATED BLOOD COUNTS AND DIFF.) APPENDIX B-3 Neut# 7.1 % 2.0-7.8 [facility] ([facility] CLASSIFICATION CHOLESTEROL FO R ADULTS CHILDREN/ADOLESCENTS* DESIRABLE: <200 MG/DL <170 MG/DL BORDER-LINE HIGH RISK: 200-239 MG/DL 170-199 MG/DL HIGH RISK: >240 MG/DL >200 MG/DL CLASS. FOR PRIMARY LDL CHOL PREVENTION: LDL CHOL-CHILD/ADOLESCENTS* DESIRABLE: <130 MG/DL <110 MG/DL BORDERLINE-HIGH RISK: 130-159 MG/DL 110-129 MG/DL HIGH RISK: >160 MG/DL >130 MG/DL *CHILDREN AND ADOLESCENTS REPRESENTS INDIVIDUALA AGED 2-19 YEARS EXCLUSIVE. CHRONIC KIDNEY DISEASE STAGING PER NKF: MALE [...] mL/min Normal 80 and above >32 mL/min NormalNORMAL RANGES Age WBC RBC HGB HCT MCV PLT Adult M 4.1-10.9 4.20-6.30 12.0-18.0 37.0-51.0 80-97 140-440 Adult F 4.1-10.9 4.04-5.48 12.0-18.0 37.0-51.0 80-97 140-440 0- 1 Yr 5.0-20.0 3.9-5.9 15-18 MV: 44 MV: 91 MV: 277 2-9 Yr. 6.0-17.0 3.8-5.4 11-13 MV: 37 MV: 78 MV: 300 10 Yrs. 5.0-13.0 3.8-5.4 12-15 MV: 39 MV: 80 MV: 250 NOTE: * FOR ADULT BLACK MALES AND FEMALES, NORMAL WBC IS 2.9-7.7 K/ML * FOR ADULT BLACK MALES AND FEMALES, NORMAL RBC,HGB, AND HCT IS 5% LESS SOURCE FOR DATA: [employer] 1800 OPERATION MANUAL( AUTOMATED BLOOD COUNTS AND DIFF.) APPENDIX B-3 ID Date Data Source [id number] 10/28/2019 01:39:00 PM EST [facility] ([facility] Name Value Range Interpretation Code Description Data Trina rce(s) Supporting Document(s) Creatine kinase [Enzymatic activity/volume] in Serum or Plasma 67 U /L 39-308 [facility] ([facility] CLASSIFICATION CHOLESTEROL FO R ADULTS CHILDREN/ADOLESCENTS* DESIRABLE: <200 MG/DL <170 MG/DL BORDER-LINE HIGH RISK: 200-239 MG/DL 170-199 MG/DL HIGH RISK: >240 MG/DL >200 MG/DL CLASS. FOR PRIMARY LDL CHOL PREVENTION: LDL CHOL-CHILD/ADOLESCENTS* DESIRABLE: <130 MG/DL <110 MG/DL BORDERLINE-HIGH RISK: 130-159 MG/DL 110-129 MG/DL HIGH RISK: >160 MG/DL >130 MG/DL *CHILDREN AND ADOLESCENTS REPRESENTS INDIVIDUALA AGED 2-19 YEARS EXCLUSIVE. CHRONIC KIDNEY DISEASE STAGING PER NKF: MALE [...] mL/min Normal 80 and above >32 mL/min NormalNORMAL RANGES Age WBC RBC HGB HCT MCV PLT Adult M 4.1-10.9 4.20-6.30 12.0-18.0 37.0-51.0 80-97 140-440 Adult F 4.1-10.9 4.04-5.48 12.0-18.0 37.0-51.0 80-97 140-440 0- 1 Yr 5.0-20.0 3.9-5.9 15-18 MV: 44 MV: 91 MV: 277 2-9 Yr. 6.0-17.0 3.8-5.4 11-13 MV: 37 MV: 78 MV: 300 10 Yrs. 5.0-13.0 3.8-5.4 12-15 MV: 39 MV: 80 MV: 250 NOTE: * FOR ADULT BLACK MALES AND FEMALES, NORMAL WBC IS 2.9-7.7 K/ML * FOR ADULT BLACK MALES AND FEMALES, NORMAL RBC,HGB, AND HCT IS 5% LESS SOURCE FOR DATA: [employer] 1800 OPERATION MANUAL( AUTOMATED BLOOD COUNTS AND DIFF.) APPENDIX B-3 ID Date Data Source [id number] 10/28/2019 01:39:00 PM EST [facility] ([facility] Name Value Range Interpretation Code Description Data Trina rce(s) Supporting Document(s) Chol 165 mg/dL 0-200 [facility] ([facility] CLASSIFICATION CHOLESTEROL FO R ADULTS CHILDREN/ADOLESCENTS* DESIRABLE: <200 MG/DL <170 MG/DL BORDER-LINE HIGH RISK: 200-239 MG/DL 170-199 MG/DL HIGH RISK: >240 MG/DL >200 MG/DL CLASS. FOR PRIMARY LDL CHOL PREVENTION: LDL CHOL-CHILD/ADOLESCENTS* DESIRABLE: <130 MG/DL <110 MG/DL BORDERLINE-HIGH RISK: 130-159 MG/DL 110-129 MG/DL HIGH RISK: >160 MG/DL >130 MG/DL *CHILDREN AND ADOLESCENTS REPRESENTS INDIVIDUALA AGED 2-19 YEARS EXCLUSIVE. CHRONIC KIDNEY DISEASE STAGING PER NKF: MALE [...] mL/min Normal 80 and above >32 mL/min NormalNORMAL RANGES Age WBC RBC HGB HCT MCV PLT Adult M 4.1-10.9 4.20-6.30 12.0-18.0 37.0-51.0 80-97 140-440 Adult F 4.1-10.9 4.04-5.48 12.0-18.0 37.0-51.0 80-97 140-440 0- 1 Yr 5.0-20.0 3.9-5.9 15-18 MV: 44 MV: 91 MV: 277 2-9 Yr. 6.0-17.0 3.8-5.4 11-13 MV: 37 MV: 78 MV: 300 10 Yrs. 5.0-13.0 3.8-5.4 12-15 MV: 39 MV: 80 MV: 250 NOTE: * FOR ADULT BLACK MALES AND FEMALES, NORMAL WBC IS 2.9-7.7 K/ML * FOR ADULT BLACK MALES AND FEMALES, NORMAL RBC,HGB, AND HCT IS 5% LESS SOURCE FOR DATA: [employer] 1800 OPERATION MANUAL( AUTOMATED BLOOD COUNTS AND DIFF.) APPENDIX B-3 Trig 175 mg/dL 35-200 [facility] ([facility] CLASSIFICATION CHOLESTEROL FO R ADULTS CHILDREN/ADOLESCENTS* DESIRABLE: <200 MG/DL <170 MG/DL BORDER-LINE HIGH RISK: 200-239 MG/DL 170-199 MG/DL HIGH RISK: >240 MG/DL >200 MG/DL CLASS. FOR PRIMARY LDL CHOL PREVENTION: LDL CHOL-CHILD/ADOLESCENTS* DESIRABLE: <130 MG/DL <110 MG/DL BORDERLINE-HIGH RISK: 130-159 MG/DL 110-129 MG/DL HIGH RISK: >160 MG/DL >130 MG/DL *CHILDREN AND ADOLESCENTS REPRESENTS INDIVIDUALA AGED 2-19 YEARS EXCLUSIVE. CHRONIC KIDNEY DISEASE STAGING PER NKF: MALE [...] mL/min Normal 80 and above >32 mL/min NormalNORMAL RANGES Age WBC RBC HGB HCT MCV PLT Adult M 4.1-10.9 4.20-6.30 12.0-18.0 37.0-51.0 80-97 140-440 Adult F 4.1-10.9 4.04-5.48 12.0-18.0 37.0-51.0 80-97 140-440 0- 1 Yr 5.0-20.0 3.9-5.9 15-18 MV: 44 MV: 91 MV: 277 2-9 Yr. 6.0-17.0 3.8-5.4 11-13 MV: 37 MV: 78 MV: 300 10 Yrs. 5.0-13.0 3.8-5.4 12-15 MV: 39 MV: 80 MV: 250 NOTE: * FOR ADULT BLACK MALES AND FEMALES, NORMAL WBC IS 2.9-7.7 K/ML * FOR ADULT BLACK MALES AND FEMALES, NORMAL RBC,HGB, AND HCT IS 5% LESS SOURCE FOR DATA: [employer] 1800 OPERATION MANUAL( AUTOMATED BLOOD COUNTS AND DIFF.) APPENDIX B-3 Prostate specific Ag [Mass/volume] in Serum or Plasma 47 mg/dL 35-5 5 [facility] (Family [facility] CLASSIFICATION CHOLESTEROL FO R ADULTS CHILDREN/ADOLESCENTS* DESIRABLE: <200 MG/DL <170 MG/DL BORDER-LINE HIGH RISK: 200-239 MG/DL 170-199 MG/DL HIGH RISK: >240 MG/DL >200 MG/DL CLASS. FOR PRIMARY LDL CHOL PREVENTION: LDL CHOL-CHILD/ADOLESCENTS* DESIRABLE: <130 MG/DL <110 MG/DL BORDERLINE-HIGH RISK: 130-159 MG/DL 110-129 MG/DL HIGH RISK: >160 MG/DL >130 MG/DL *CHILDREN AND ADOLESCENTS REPRESENTS INDIVIDUALA AGED 2-19 YEARS EXCLUSIVE. CHRONIC KIDNEY DISEASE STAGING PER NKF: MALE [...] mL/min Normal 80 and above >32 mL/min NormalNORMAL RANGES Age WBC RBC HGB HCT MCV PLT Adult M 4.1-10.9 4.20-6.30 12.0-18.0 37.0-51.0 80-97 140-440 Adult F 4.1-10.9 4.04-5.48 12.0-18.0 37.0-51.0 80-97 140-440 0- 1 Yr 5.0-20.0 3.9-5.9 15-18 MV: 44 MV: 91 MV: 277 2-9 Yr. 6.0-17.0 3.8-5.4 11-13 MV: 37 MV: 78 MV: 300 10 Yrs. 5.0-13.0 3.8-5.4 12-15 MV: 39 MV: 80 MV: 250 NOTE: * FOR ADULT BLACK MALES AND FEMALES, NORMAL WBC IS 2.9-7.7 K/ML * FOR ADULT BLACK MALES AND FEMALES, NORMAL RBC,HGB, AND HCT IS 5% LESS SOURCE FOR DATA: [employer] 1800 OPERATION MANUAL( AUTOMATED BLOOD COUNTS AND DIFF.) APPENDIX B-3 LDL_C 83 Calc 75-129 [facility] CLASSIFICATION CHOLESTEROL FO R ADULTS CHILDREN/ADOLESCENTS* DESIRABLE: <200 MG/DL <170 MG/DL BORDER-LINE HIGH RISK: 200-239 MG/DL 170-199 MG/DL HIGH RISK: >240 MG/DL >200 MG/DL CLASS. FOR PRIMARY LDL CHOL PREVENTION: LDL CHOL-CHILD/ADOLESCENTS* DESIRABLE: <130 MG/DL <110 MG/DL BORDERLINE-HIGH RISK: 130-159 MG/DL 110-129 MG/DL HIGH RISK: >160 MG/DL >130 MG/DL *CHILDREN AND ADOLESCENTS REPRESENTS INDIVIDUALA AGED 2-19 YEARS EXCLUSIVE. CHRONIC KIDNEY DISEASE STAGING PER NKF: MALE [...] mL/min Normal 80 and above >32 mL/min NormalNORMAL RANGES Age WBC RBC HGB HCT MCV PLT Adult M 4.1-10.9 4.20-6.30 12.0-18.0 37.0-51.0 80-97 140-440 Adult F 4.1-10.9 4.04-5.48 12.0-18.0 37.0-51.0 80-97 140-440 0- 1 Yr 5.0-20.0 3.9-5.9 15-18 MV: 44 MV: 91 MV: 277 2-9 Yr. 6.0-17.0 3.8-5.4 11-13 MV: 37 MV: 78 MV: 300 10 Yrs. 5.0-13.0 3.8-5.4 12-15 MV: 39 MV: 80 MV: 250 NOTE: * FOR ADULT BLACK MALES AND FEMALES, NORMAL WBC IS 2.9-7.7 K/ML * FOR ADULT BLACK MALES AND FEMALES, NORMAL RBC,HGB, AND HCT IS 5% LESS SOURCE FOR DATA: [employer] 1800 OPERATION MANUAL( AUTOMATED BLOOD COUNTS AND DIFF.) APPENDIX B-3 Cho/HDL Ratio 3.5 CALC [facility] ([facility] CLASSIFICATION CHOLESTEROL FO R ADULTS CHILDREN/ADOLESCENTS* DESIRABLE: <200 MG/DL <170 MG/DL BORDER-LINE HIGH RISK: 200-239 MG/DL 170-199 MG/DL HIGH RISK: >240 MG/DL >200 MG/DL CLASS. FOR PRIMARY LDL CHOL PREVENTION: LDL CHOL-CHILD/ADOLESCENTS* DESIRABLE: <130 MG/DL <110 MG/DL BORDERLINE-HIGH RISK: 130-159 MG/DL 110-129 MG/DL HIGH RISK: >160 MG/DL >130 MG/DL *CHILDREN AND ADOLESCENTS REPRESENTS INDIVIDUALA AGED 2-19 YEARS EXCLUSIVE. CHRONIC KIDNEY DISEASE STAGING PER NKF: MALE [...] mL/min Normal 80 and above >32 mL/min NormalNORMAL RANGES Age WBC RBC HGB HCT MCV PLT Adult M 4.1-10.9 4.20-6.30 12.0-18.0 37.0-51.0 80-97 140-440 Adult F 4.1-10.9 4.04-5.48 12.0-18.0 37.0-51.0 80-97 140-440 0- 1 Yr 5.0-20.0 3.9-5.9 15-18 MV: 44 MV: 91 MV: 277 2-9 Yr. 6.0-17.0 3.8-5.4 11-13 MV: 37 MV: 78 MV: 300 10 Yrs. 5.0-13.0 3.8-5.4 12-15 MV: 39 MV: 80 MV: 250 NOTE: * FOR ADULT BLACK MALES AND FEMALES, NORMAL WBC IS 2.9-7.7 K/ML * FOR ADULT BLACK MALES AND FEMALES, NORMAL RBC,HGB, AND HCT IS 5% LESS SOURCE FOR DATA: [employer] 1800 OPERATION MANUAL( AUTOMATED BLOOD COUNTS AND DIFF.) APPENDIX B-3 ID Date Data Source [id number] 10/28/2019 01:39:00 PM EST [facility] ([facility] Name Value Range Interpretation Code Description Data Trina rce(s) Supporting Document(s) Glu 176 mg/dL 70-110 Above high normal [facility] ([facility] CLASSIFICATION CHOLESTEROL FO R ADULTS CHILDREN/ADOLESCENTS* DESIRABLE: <200 MG/DL <170 MG/DL BORDER-LINE HIGH RISK: 200-239 MG/DL 170-199 MG/DL HIGH RISK: >240 MG/DL >200 MG/DL CLASS. FOR PRIMARY LDL CHOL PREVENTION: LDL CHOL-CHILD/ADOLESCENTS* DESIRABLE: <130 MG/DL <110 MG/DL BORDERLINE-HIGH RISK: 130-159 MG/DL 110-129 MG/DL HIGH RISK: >160 MG/DL >130 MG/DL *CHILDREN AND ADOLESCENTS REPRESENTS INDIVIDUALA AGED 2-19 YEARS EXCLUSIVE. CHRONIC KIDNEY DISEASE STAGING PER NKF: MALE [...] mL/min Normal 80 and above >32 mL/min NormalNORMAL RANGES Age WBC RBC HGB HCT MCV PLT Adult M 4.1-10.9 4.20-6.30 12.0-18.0 37.0-51.0 80-97 140-440 Adult F 4.1-10.9 4.04-5.48 12.0-18.0 37.0-51.0 80-97 140-440 0- 1 Yr 5.0-20.0 3.9-5.9 15-18 MV: 44 MV: 91 MV: 277 2-9 Yr. 6.0-17.0 3.8-5.4 11-13 MV: 37 MV: 78 MV: 300 10 Yrs. 5.0-13.0 3.8-5.4 12-15 MV: 39 MV: 80 MV: 250 NOTE: * FOR ADULT BLACK MALES AND FEMALES, NORMAL WBC IS 2.9-7.7 K/ML * FOR ADULT BLACK MALES AND FEMALES, NORMAL RBC,HGB, AND HCT IS 5% LESS SOURCE FOR DATA: [employer] DYN 1800 OPERATION MANUAL( AUTOMATED BLOOD COUNTS AND DIFF.) APPENDIX B-3 BUN 26 mg/dL 8-23 Above high normal [facility] CLASSIFICATION CHOLESTEROL FO R ADULTS CHILDREN/ADOLESCENTS* DESIRABLE: <200 MG/DL <170 MG/DL BORDER-LINE HIGH RISK: 200-239 MG/DL 170-199 MG/DL HIGH RISK: >240 MG/DL >200 MG/DL CLASS. FOR PRIMARY LDL CHOL PREVENTION: LDL CHOL-CHILD/ADOLESCENTS* DESIRABLE: <130 MG/DL <110 MG/DL BORDERLINE-HIGH RISK: 130-159 MG/DL 110-129 MG/DL HIGH RISK: >160 MG/DL >130 MG/DL *CHILDREN AND ADOLESCENTS REPRESENTS INDIVIDUALA AGED 2-19 YEARS EXCLUSIVE. CHRONIC KIDNEY DISEASE STAGING PER NKF: MALE [...] mL/min Normal 80 and above >32 mL/min NormalNORMAL RANGES Age WBC RBC HGB HCT MCV PLT Adult M 4.1-10.9 4.20-6.30 12.0-18.0 37.0-51.0 80-97 140-440 Adult F 4.1-10.9 4.04-5.48 12.0-18.0 37.0-51.0 80-97 140-440 0- 1 Yr 5.0-20.0 3.9-5.9 15-18 MV: 44 MV: 91 MV: 277 2-9 Yr. 6.0-17.0 3.8-5.4 11-13 MV: 37 MV: 78 MV: 300 10 Yrs. 5.0-13.0 3.8-5.4 12-15 MV: 39 MV: 80 MV: 250 NOTE: * FOR ADULT BLACK MALES AND FEMALES, NORMAL WBC IS 2.9-7.7 K/ML * FOR ADULT BLACK MALES AND FEMALES, NORMAL RBC,HGB, AND HCT IS 5% LESS SOURCE FOR DATA: [employer] 1800 OPERATION MANUAL( AUTOMATED BLOOD COUNTS AND DIFF.) APPENDIX B-3 Creat 0.8 mg/dL 0.7-1.2 [facility] ([facility] CLASSIFICATION CHOLESTEROL FO R ADULTS CHILDREN/ADOLESCENTS* DESIRABLE: <200 MG/DL <170 MG/DL BORDER-LINE HIGH RISK: 200-239 MG/DL 170-199 MG/DL HIGH RISK: >240 MG/DL >200 MG/DL CLASS. FOR PRIMARY LDL CHOL PREVENTION: LDL CHOL-CHILD/ADOLESCENTS* DESIRABLE: <130 MG/DL <110 MG/DL BORDERLINE-HIGH RISK: 130-159 MG/DL 110-129 MG/DL HIGH RISK: >160 MG/DL >130 MG/DL *CHILDREN AND ADOLESCENTS REPRESENTS INDIVIDUALA AGED 2-19 YEARS EXCLUSIVE. CHRONIC KIDNEY DISEASE STAGING PER NKF: MALE [...] mL/min Normal 80 and above >32 mL/min NormalNORMAL RANGES Age WBC RBC HGB HCT MCV PLT Adult M 4.1-10.9 4.20-6.30 12.0-18.0 37.0-51.0 80-97 140-440 Adult F 4.1-10.9 4.04-5.48 12.0-18.0 37.0-51.0 80-97 140-440 0- 1 Yr 5.0-20.0 3.9-5.9 15-18 MV: 44 MV: 91 MV: 277 2-9 Yr. 6.0-17.0 3.8-5.4 11-13 MV: 37 MV: 78 MV: 300 10 Yrs. 5.0-13.0 3.8-5.4 12-15 MV: 39 MV: 80 MV: 250 NOTE: * FOR ADULT BLACK MALES AND FEMALES, NORMAL WBC IS 2.9-7.7 K/ML * FOR ADULT BLACK MALES AND FEMALES, NORMAL RBC,HGB, AND HCT IS 5% LESS SOURCE FOR DATA: [employer] 1800 OPERATION MANUAL( AUTOMATED BLOOD COUNTS AND DIFF.) APPENDIX B-3 BUN/Creatinine Ratio 32.5 CALC [facility] ([facility] CLASSIFICATION CHOLESTEROL FO R ADULTS CHILDREN/ADOLESCENTS* DESIRABLE: <200 MG/DL <170 MG/DL BORDER-LINE HIGH RISK: 200-239 MG/DL 170-199 MG/DL HIGH RISK: >240 MG/DL >200 MG/DL CLASS. FOR PRIMARY LDL CHOL PREVENTION: LDL CHOL-CHILD/ADOLESCENTS* DESIRABLE: <130 MG/DL <110 MG/DL BORDERLINE-HIGH RISK: 130-159 MG/DL 110-129 MG/DL HIGH RISK: >160 MG/DL >130 MG/DL *CHILDREN AND ADOLESCENTS REPRESENTS INDIVIDUALA AGED 2-19 YEARS EXCLUSIVE. CHRONIC KIDNEY DISEASE STAGING PER NKF: MALE [...] mL/min Normal 80 and above >32 mL/min NormalNORMAL RANGES Age WBC RBC HGB HCT MCV PLT Adult M 4.1-10.9 4.20-6.30 12.0-18.0 37.0-51.0 80-97 140-440 Adult F 4.1-10.9 4.04-5.48 12.0-18.0 37.0-51.0 80-97 140-440 0- 1 Yr 5.0-20.0 3.9-5.9 15-18 MV: 44 MV: 91 MV: 277 2-9 Yr. 6.0-17.0 3.8-5.4 11-13 MV: 37 MV: 78 MV: 300 10 Yrs. 5.0-13.0 3.8-5.4 12-15 MV: 39 MV: 80 MV: 250 NOTE: * FOR ADULT BLACK MALES AND FEMALES, NORMAL WBC IS 2.9-7.7 K/ML * FOR ADULT BLACK MALES AND FEMALES, NORMAL RBC,HGB, AND HCT IS 5% LESS SOURCE FOR DATA: [employer] 1800 OPERATION MANUAL( AUTOMATED BLOOD COUNTS AND DIFF.) APPENDIX B-3 Na 140 mmol/L 136-145 [facility] ([facility] CLASSIFICATION CHOLESTEROL FO R ADULTS CHILDREN/ADOLESCENTS* DESIRABLE: <200 MG/DL <170 MG/DL BORDER-LINE HIGH RISK: 200-239 MG/DL 170-199 MG/DL HIGH RISK: >240 MG/DL >200 MG/DL CLASS. FOR PRIMARY LDL CHOL PREVENTION: LDL CHOL-CHILD/ADOLESCENTS* DESIRABLE: <130 MG/DL <110 MG/DL BORDERLINE-HIGH RISK: 130-159 MG/DL 110-129 MG/DL HIGH RISK: >160 MG/DL >130 MG/DL *CHILDREN AND ADOLESCENTS REPRESENTS INDIVIDUALA AGED 2-19 YEARS EXCLUSIVE. CHRONIC KIDNEY DISEASE STAGING PER NKF: MALE [...] mL/min Normal 80 and above >32 mL/min NormalNORMAL RANGES Age WBC RBC HGB HCT MCV PLT Adult M 4.1-10.9 4.20-6.30 12.0-18.0 37.0-51.0 80-97 140-440 Adult F 4.1-10.9 4.04-5.48 12.0-18.0 37.0-51.0 80-97 140-440 0- 1 Yr 5.0-20.0 3.9-5.9 15-18 MV: 44 MV: 91 MV: 277 2-9 Yr. 6.0-17.0 3.8-5.4 11-13 MV: 37 MV: 78 MV: 300 10 Yrs. 5.0-13.0 3.8-5.4 12-15 MV: 39 MV: 80 MV: 250 NOTE: * FOR ADULT BLACK MALES AND FEMALES, NORMAL WBC IS 2.9-7.7 K/ML * FOR ADULT BLACK MALES AND FEMALES, NORMAL RBC,HGB, AND HCT IS 5% LESS SOURCE FOR DATA: [employer] 1800 OPERATION MANUAL( AUTOMATED BLOOD COUNTS AND DIFF.) APPENDIX B-3 K 4.6 mmol/L 3.5-5.1 [facility] ([facility] CLASSIFICATION CHOLESTEROL FO R ADULTS CHILDREN/ADOLESCENTS* DESIRABLE: <200 MG/DL <170 MG/DL BORDER-LINE HIGH RISK: 200-239 MG/DL 170-199 MG/DL HIGH RISK: >240 MG/DL >200 MG/DL CLASS. FOR PRIMARY LDL CHOL PREVENTION: LDL CHOL-CHILD/ADOLESCENTS* DESIRABLE: <130 MG/DL <110 MG/DL BORDERLINE-HIGH RISK: 130-159 MG/DL 110-129 MG/DL HIGH RISK: >160 MG/DL >130 MG/DL *CHILDREN AND ADOLESCENTS REPRESENTS INDIVIDUALA AGED 2-19 YEARS EXCLUSIVE. CHRONIC KIDNEY DISEASE STAGING PER NKF: MALE [...] mL/min Normal 80 and above >32 mL/min NormalNORMAL RANGES Age WBC RBC HGB HCT MCV PLT Adult M 4.1-10.9 4.20-6.30 12.0-18.0 37.0-51.0 80-97 140-440 Adult F 4.1-10.9 4.04-5.48 12.0-18.0 37.0-51.0 80-97 140-440 0- 1 Yr 5.0-20.0 3.9-5.9 15-18 MV: 44 MV: 91 MV: 277 2-9 Yr. 6.0-17.0 3.8-5.4 11-13 MV: 37 MV: 78 MV: 300 10 Yrs. 5.0-13.0 3.8-5.4 12-15 MV: 39 MV: 80 MV: 250 NOTE: * FOR ADULT BLACK MALES AND FEMALES, NORMAL WBC IS 2.9-7.7 K/ML * FOR ADULT BLACK MALES AND FEMALES, NORMAL RBC,HGB, AND HCT IS 5% LESS SOURCE FOR DATA: [employer] 1800 OPERATION MANUAL( AUTOMATED BLOOD COUNTS AND DIFF.) APPENDIX B-3 CL 98.8 mmol/L 98.0-107.0 [facility] ([facility] CLASSIFICATION CHOLESTEROL FO R ADULTS CHILDREN/ADOLESCENTS* DESIRABLE: <200 MG/DL <170 MG/DL BORDER-LINE HIGH RISK: 200-239 MG/DL 170-199 MG/DL HIGH RISK: >240 MG/DL >200 MG/DL CLASS. FOR PRIMARY LDL CHOL PREVENTION: LDL CHOL-CHILD/ADOLESCENTS* DESIRABLE: <130 MG/DL <110 MG/DL BORDERLINE-HIGH RISK: 130-159 MG/DL 110-129 MG/DL HIGH RISK: >160 MG/DL >130 MG/DL *CHILDREN AND ADOLESCENTS REPRESENTS INDIVIDUALA AGED 2-19 YEARS EXCLUSIVE. CHRONIC KIDNEY DISEASE STAGING PER NKF: MALE [...] mL/min Normal 80 and above >32 mL/min NormalNORMAL RANGES Age WBC RBC HGB HCT MCV PLT Adult M 4.1-10.9 4.20-6.30 12.0-18.0 37.0-51.0 80-97 140-440 Adult F 4.1-10.9 4.04-5.48 12.0-18.0 37.0-51.0 80-97 140-440 0- 1 Yr 5.0-20.0 3.9-5.9 15-18 MV: 44 MV: 91 MV: 277 2-9 Yr. 6.0-17.0 3.8-5.4 11-13 MV: 37 MV: 78 MV: 300 10 Yrs. 5.0-13.0 3.8-5.4 12-15 MV: 39 MV: 80 MV: 250 NOTE: * FOR ADULT BLACK MALES AND FEMALES, NORMAL WBC IS 2.9-7.7 K/ML * FOR ADULT BLACK MALES AND FEMALES, NORMAL RBC,HGB, AND HCT IS 5% LESS SOURCE FOR DATA: [employer] 1800 OPERATION MANUAL( AUTOMATED BLOOD COUNTS AND DIFF.) APPENDIX B-3 Co2 30.3 mmol/L 22.0-29.0 Above high normal [facility] ([facility] CLASSIFICATION CHOLESTEROL FO R ADULTS CHILDREN/ADOLESCENTS* DESIRABLE: <200 MG/DL <170 MG/DL BORDER-LINE HIGH RISK: 200-239 MG/DL 170-199 MG/DL HIGH RISK: >240 MG/DL >200 MG/DL CLASS. FOR PRIMARY LDL CHOL PREVENTION: LDL CHOL-CHILD/ADOLESCENTS* DESIRABLE: <130 MG/DL <110 MG/DL BORDERLINE-HIGH RISK: 130-159 MG/DL 110-129 MG/DL HIGH RISK: >160 MG/DL >130 MG/DL *CHILDREN AND ADOLESCENTS REPRESENTS INDIVIDUALA AGED 2-19 YEARS EXCLUSIVE. CHRONIC KIDNEY DISEASE STAGING PER NKF: MALE [...] mL/min Normal 80 and above >32 mL/min NormalNORMAL RANGES Age WBC RBC HGB HCT MCV PLT Adult M 4.1-10.9 4.20-6.30 12.0-18.0 37.0-51.0 80-97 140-440 Adult F 4.1-10.9 4.04-5.48 12.0-18.0 37.0-51.0 80-97 140-440 0- 1 Yr 5.0-20.0 3.9-5.9 15-18 MV: 44 MV: 91 MV: 277 2-9 Yr. 6.0-17.0 3.8-5.4 11-13 MV: 37 MV: 78 MV: 300 10 Yrs. 5.0-13.0 3.8-5.4 12-15 MV: 39 MV: 80 MV: 250 NOTE: * FOR ADULT BLACK MALES AND FEMALES, NORMAL WBC IS 2.9-7.7 K/ML * FOR ADULT BLACK MALES AND FEMALES, NORMAL RBC,HGB, AND HCT IS 5% LESS SOURCE FOR DATA: [employer] DYN 1800 OPERATION MANUAL( AUTOMATED BLOOD COUNTS AND DIFF.) APPENDIX B-3 TP 6.6 g/dL 6.6-8.7 [facility] ([facility] CLASSIFICATION CHOLESTEROL FO R ADULTS CHILDREN/ADOLESCENTS* DESIRABLE: <200 MG/DL <170 MG/DL BORDER-LINE HIGH RISK: 200-239 MG/DL 170-199 MG/DL HIGH RISK: >240 MG/DL >200 MG/DL CLASS. FOR PRIMARY LDL CHOL PREVENTION: LDL CHOL-CHILD/ADOLESCENTS* DESIRABLE: <130 MG/DL <110 MG/DL BORDERLINE-HIGH RISK: 130-159 MG/DL 110-129 MG/DL HIGH RISK: >160 MG/DL >130 MG/DL *CHILDREN AND ADOLESCENTS REPRESENTS INDIVIDUALA AGED 2-19 YEARS EXCLUSIVE. CHRONIC KIDNEY DISEASE STAGING PER NKF: MALE [...] mL/min Normal 80 and above >32 mL/min NormalNORMAL RANGES Age WBC RBC HGB HCT MCV PLT Adult M 4.1-10.9 4.20-6.30 12.0-18.0 37.0-51.0 80-97 140-440 Adult F 4.1-10.9 4.04-5.48 12.0-18.0 37.0-51.0 80-97 140-440 0- 1 Yr 5.0-20.0 3.9-5.9 15-18 MV: 44 MV: 91 MV: 277 2-9 Yr. 6.0-17.0 3.8-5.4 11-13 MV: 37 MV: 78 MV: 300 10 Yrs. 5.0-13.0 3.8-5.4 12-15 MV: 39 MV: 80 MV: 250 NOTE: * FOR ADULT BLACK MALES AND FEMALES, NORMAL WBC IS 2.9-7.7 K/ML * FOR ADULT BLACK MALES AND FEMALES, NORMAL RBC,HGB, AND HCT IS 5% LESS SOURCE FOR DATA: [employer] 1800 OPERATION MANUAL( AUTOMATED BLOOD COUNTS AND DIFF.) APPENDIX B-3 CA 9.6 mg/dL 8.6-10.2 [facility] ([facility] CLASSIFICATION CHOLESTEROL FO R ADULTS CHILDREN/ADOLESCENTS* DESIRABLE: <200 MG/DL <170 MG/DL BORDER-LINE HIGH RISK: 200-239 MG/DL 170-199 MG/DL HIGH RISK: >240 MG/DL >200 MG/DL CLASS. FOR PRIMARY LDL CHOL PREVENTION: LDL CHOL-CHILD/ADOLESCENTS* DESIRABLE: <130 MG/DL <110 MG/DL BORDERLINE-HIGH RISK: 130-159 MG/DL 110-129 MG/DL HIGH RISK: >160 MG/DL >130 MG/DL *CHILDREN AND ADOLESCENTS REPRESENTS INDIVIDUALA AGED 2-19 YEARS EXCLUSIVE. CHRONIC KIDNEY DISEASE STAGING PER NKF: MALE [...] mL/min Normal 80 and above >32 mL/min NormalNORMAL RANGES Age WBC RBC HGB HCT MCV PLT Adult M 4.1-10.9 4.20-6.30 12.0-18.0 37.0-51.0 80-97 140-440 Adult F 4.1-10.9 4.04-5.48 12.0-18.0 37.0-51.0 80-97 140-440 0- 1 Yr 5.0-20.0 3.9-5.9 15-18 MV: 44 MV: 91 MV: 277 2-9 Yr. 6.0-17.0 3.8-5.4 11-13 MV: 37 MV: 78 MV: 300 10 Yrs. 5.0-13.0 3.8-5.4 12-15 MV: 39 MV: 80 MV: 250 NOTE: * FOR ADULT BLACK MALES AND FEMALES, NORMAL WBC IS 2.9-7.7 K/ML * FOR ADULT BLACK MALES AND FEMALES, NORMAL RBC,HGB, AND HCT IS 5% LESS SOURCE FOR DATA: [employer]YN 1800 OPERATION MANUAL( AUTOMATED BLOOD COUNTS AND DIFF.) APPENDIX B-3 A/G Ratio 1.7 CALC [facility] ([facility] CLASSIFICATION CHOLESTEROL FO R ADULTS CHILDREN/ADOLESCENTS* DESIRABLE: <200 MG/DL <170 MG/DL BORDER-LINE HIGH RISK: 200-239 MG/DL 170-199 MG/DL HIGH RISK: >240 MG/DL >200 MG/DL CLASS. FOR PRIMARY LDL CHOL PREVENTION: LDL CHOL-CHILD/ADOLESCENTS* DESIRABLE: <130 MG/DL <110 MG/DL BORDERLINE-HIGH RISK: 130-159 MG/DL 110-129 MG/DL HIGH RISK: >160 MG/DL >130 MG/DL *CHILDREN AND ADOLESCENTS REPRESENTS INDIVIDUALA AGED 2-19 YEARS EXCLUSIVE. CHRONIC KIDNEY DISEASE STAGING PER NKF: MALE [...] mL/min Normal 80 and above >32 mL/min NormalNORMAL RANGES Age WBC RBC HGB HCT MCV PLT Adult M 4.1-10.9 4.20-6.30 12.0-18.0 37.0-51.0 80-97 140-440 Adult F 4.1-10.9 4.04-5.48 12.0-18.0 37.0-51.0 80-97 140-440 0- 1 Yr 5.0-20.0 3.9-5.9 15-18 MV: 44 MV: 91 MV: 277 2-9 Yr. 6.0-17.0 3.8-5.4 11-13 MV: 37 MV: 78 MV: 300 10 Yrs. 5.0-13.0 3.8-5.4 12-15 MV: 39 MV: 80 MV: 250 NOTE: * FOR ADULT BLACK MALES AND FEMALES, NORMAL WBC IS 2.9-7.7 K/ML * FOR ADULT BLACK MALES AND FEMALES, NORMAL RBC,HGB, AND HCT IS 5% LESS SOURCE FOR DATA: [employer]YN 1800 OPERATION MANUAL( AUTOMATED BLOOD COUNTS AND DIFF.) APPENDIX B-3 Alb 4.1 g/dL 3.5-5.2 [facility] CLASSIFICATION CHOLESTEROL FO R ADULTS CHILDREN/ADOLESCENTS* DESIRABLE: <200 MG/DL <170 MG/DL BORDER-LINE HIGH RISK: 200-239 MG/DL 170-199 MG/DL HIGH RISK: >240 MG/DL >200 MG/DL CLASS. FOR PRIMARY LDL CHOL PREVENTION: LDL CHOL-CHILD/ADOLESCENTS* DESIRABLE: <130 MG/DL <110 MG/DL BORDERLINE-HIGH RISK: 130-159 MG/DL 110-129 MG/DL HIGH RISK: >160 MG/DL >130 MG/DL *CHILDREN AND ADOLESCENTS REPRESENTS INDIVIDUALA AGED 2-19 YEARS EXCLUSIVE. CHRONIC KIDNEY DISEASE STAGING PER NKF: MALE [...] mL/min Normal 80 and above >32 mL/min NormalNORMAL RANGES Age WBC RBC HGB HCT MCV PLT Adult M 4.1-10.9 4.20-6.30 12.0-18.0 37.0-51.0 80-97 140-440 Adult F 4.1-10.9 4.04-5.48 12.0-18.0 37.0-51.0 80-97 140-440 0- 1 Yr 5.0-20.0 3.9-5.9 15-18 MV: 44 MV: 91 MV: 277 2-9 Yr. 6.0-17.0 3.8-5.4 11-13 MV: 37 MV: 78 MV: 300 10 Yrs. 5.0-13.0 3.8-5.4 12-15 MV: 39 MV: 80 MV: 250 NOTE: * FOR ADULT BLACK MALES AND FEMALES, NORMAL WBC IS 2.9-7.7 K/ML * FOR ADULT BLACK MALES AND FEMALES, NORMAL RBC,HGB, AND HCT IS 5% LESS SOURCE FOR DATA: [employer] DYN 1800 OPERATION MANUAL( AUTOMATED BLOOD COUNTS AND DIFF.) APPENDIX B-3 Alp 92.0 U/L 40-129 [facility] CLASSIFICATION CHOLESTEROL FO R ADULTS CHILDREN/ADOLESCENTS* DESIRABLE: <200 MG/DL <170 MG/DL BORDER-LINE HIGH RISK: 200-239 MG/DL 170-199 MG/DL HIGH RISK: >240 MG/DL >200 MG/DL CLASS. FOR PRIMARY LDL CHOL PREVENTION: LDL CHOL-CHILD/ADOLESCENTS* DESIRABLE: <130 MG/DL <110 MG/DL BORDERLINE-HIGH RISK: 130-159 MG/DL 110-129 MG/DL HIGH RISK: >160 MG/DL >130 MG/DL *CHILDREN AND ADOLESCENTS REPRESENTS INDIVIDUALA AGED 2-19 YEARS EXCLUSIVE. CHRONIC KIDNEY DISEASE STAGING PER NKF: MALE [...] mL/min Normal 80 and above >32 mL/min NormalNORMAL RANGES Age WBC RBC HGB HCT MCV PLT Adult M 4.1-10.9 4.20-6.30 12.0-18.0 37.0-51.0 80-97 140-440 Adult F 4.1-10.9 4.04-5.48 12.0-18.0 37.0-51.0 80-97 140-440 0- 1 Yr 5.0-20.0 3.9-5.9 15-18 MV: 44 MV: 91 MV: 277 2-9 Yr. 6.0-17.0 3.8-5.4 11-13 MV: 37 MV: 78 MV: 300 10 Yrs. 5.0-13.0 3.8-5.4 12-15 MV: 39 MV: 80 MV: 250 NOTE: * FOR ADULT BLACK MALES AND FEMALES, NORMAL WBC IS 2.9-7.7 K/ML * FOR ADULT BLACK MALES AND FEMALES, NORMAL RBC,HGB, AND HCT IS 5% LESS SOURCE FOR DATA: [employer] 1800 OPERATION MANUAL( AUTOMATED BLOOD COUNTS AND DIFF.) APPENDIX B-3 Globulin 2.5 [facility]C [facility] ([facility] CLASSIFICATION CHOLESTEROL FO R ADULTS CHILDREN/ADOLESCENTS* DESIRABLE: <200 MG/DL <170 MG/DL BORDER-LINE HIGH RISK: 200-239 MG/DL 170-199 MG/DL HIGH RISK: >240 MG/DL >200 MG/DL CLASS. FOR PRIMARY LDL CHOL PREVENTION: LDL CHOL-CHILD/ADOLESCENTS* DESIRABLE: <130 MG/DL <110 MG/DL BORDERLINE-HIGH RISK: 130-159 MG/DL 110-129 MG/DL HIGH RISK: >160 MG/DL >130 MG/DL *CHILDREN AND ADOLESCENTS REPRESENTS INDIVIDUALA AGED 2-19 YEARS EXCLUSIVE. CHRONIC KIDNEY DISEASE STAGING PER NKF: MALE [...] mL/min Normal 80 and above >32 mL/min NormalNORMAL RANGES Age WBC RBC HGB HCT MCV PLT Adult M 4.1-10.9 4.20-6.30 12.0-18.0 37.0-51.0 80 140-440 Adult F 4.1-10.9 4.04-5.48 12.0-18.0 37.0-51.0 80- 140-440 0- 1 Yr 5.0-20.0 3.9-5.9 15-18 MV: 44 MV: 91 MV: 277 2-9 Yr. 6.0-17.0 3.8-5.4 11-13 MV: 37 MV: 78 MV: 300 10 Yrs. 5.0-13.0 3.8-5.4 12-15 MV: 39 MV: 80 MV: 250 NOTE: * FOR ADULT BLACK MALES AND FEMALES, NORMAL WBC IS 2.9-7.7 K/ML * FOR ADULT BLACK MALES AND FEMALES, NORMAL RBC,HGB, AND HCT IS 5% LESS SOURCE FOR DATA: [employer] DYN 1800 OPERATION MANUAL( AUTOMATED BLOOD COUNTS AND DIFF.) APPENDIX B-3 Alt (SGPT) 11 U/L 0-41 [facility] ([facility] CLASSIFICATION CHOLESTEROL FO R ADULTS CHILDREN/ADOLESCENTS* DESIRABLE: <200 MG/DL <170 MG/DL BORDER-LINE HIGH RISK: 200-239 MG/DL 170-199 MG/DL HIGH RISK: >240 MG/DL >200 MG/DL CLASS. FOR PRIMARY LDL CHOL PREVENTION: LDL CHOL-CHILD/ADOLESCENTS* DESIRABLE: <130 MG/DL <110 MG/DL BORDERLINE-HIGH RISK: 130-159 MG/DL 110-129 MG/DL HIGH RISK: >160 MG/DL >130 MG/DL *CHILDREN AND ADOLESCENTS REPRESENTS INDIVIDUALA AGED 2-19 YEARS EXCLUSIVE. CHRONIC KIDNEY DISEASE STAGING PER NKF: MALE [...] mL/min Normal 80 and above >32 mL/min NormalNORMAL RANGES Age WBC RBC HGB HCT MCV PLT Adult M 4.1-10.9 4.20-6.30 12.0-18.0 37.0-51.0 80-97 140-440 Adult F 4.1-10.9 4.04-5.48 12.0-18.0 37.0-51.0 80-97 140-440 0- 1 Yr 5.0-20.0 3.9-5.9 15-18 MV: 44 MV: 91 MV: 277 2-9 Yr. 6.0-17.0 3.8-5.4 11-13 MV: 37 MV: 78 MV: 300 10 Yrs. 5.0-13.0 3.8-5.4 12-15 MV: 39 MV: 80 MV: 250 NOTE: * FOR ADULT BLACK MALES AND FEMALES, NORMAL WBC IS 2.9-7.7 K/ML * FOR ADULT BLACK MALES AND FEMALES, NORMAL RBC,HGB, AND HCT IS 5% LESS SOURCE FOR DATA: [employer] DYN 1800 OPERATION MANUAL( AUTOMATED BLOOD COUNTS AND DIFF.) APPENDIX B-3 Ast (Sgot) 15 U/L 0-40 [facility] ([facility] CLASSIFICATION CHOLESTEROL FO R ADULTS CHILDREN/ADOLESCENTS* DESIRABLE: <200 MG/DL <170 MG/DL BORDER-LINE HIGH RISK: 200-239 MG/DL 170-199 MG/DL HIGH RISK: >240 MG/DL >200 MG/DL CLASS. FOR PRIMARY LDL CHOL PREVENTION: LDL CHOL-CHILD/ADOLESCENTS* DESIRABLE: <130 MG/DL <110 MG/DL BORDERLINE-HIGH RISK: 130-159 MG/DL 110-129 MG/DL HIGH RISK: >160 MG/DL >130 MG/DL *CHILDREN AND ADOLESCENTS REPRESENTS INDIVIDUALA AGED 2-19 YEARS EXCLUSIVE. CHRONIC KIDNEY DISEASE STAGING PER NKF: MALE [...] mL/min Normal 80 and above >32 mL/min NormalNORMAL RANGES Age WBC RBC HGB HCT MCV PLT Adult M 4.1-10.9 4.20-6.30 12.0-18.0 37.0-51.0 80-97 140-440 Adult F 4.1-10.9 4.04-5.48 12.0-18.0 37.0-51.0 80-97 140-440 0- 1 Yr 5.0-20.0 3.9-5.9 15-18 MV: 44 MV: 91 MV: 277 2-9 Yr. 6.0-17.0 3.8-5.4 11-13 MV: 37 MV: 78 MV: 300 10 Yrs. 5.0-13.0 3.8-5.4 12-15 MV: 39 MV: 80 MV: 250 NOTE: * FOR ADULT BLACK MALES AND FEMALES, NORMAL WBC IS 2.9-7.7 K/ML * FOR ADULT BLACK MALES AND FEMALES, NORMAL RBC,HGB, AND HCT IS 5% LESS SOURCE FOR DATA: [employer] D[employer] 1800 OPERATION MANUAL( AUTOMATED BLOOD COUNTS AND DIFF.) APPENDIX B-3 Osmolality-Calculated 288.7 [facility]C MED ENT ([facility] CLASSIFICATION CHOLESTEROL FO R ADULTS CHILDREN/ADOLESCENTS* DESIRABLE: <200 MG/DL <170 MG/DL BORDER-LINE HIGH RISK: 200-239 MG/DL 170-199 MG/DL HIGH RISK: >240 MG/DL >200 MG/DL CLASS. FOR PRIMARY LDL CHOL PREVENTION: LDL CHOL-CHILD/ADOLESCENTS* DESIRABLE: <130 MG/DL <110 MG/DL BORDERLINE-HIGH RISK: 130-159 MG/DL 110-129 MG/DL HIGH RISK: >160 MG/DL >130 MG/DL *CHILDREN AND ADOLESCENTS REPRESENTS INDIVIDUALA AGED 2-19 YEARS EXCLUSIVE. CHRONIC KIDNEY DISEASE STAGING PER NKF: MALE [...] mL/min Normal 80 and above >32 mL/min NormalNORMAL RANGES Age WBC RBC HGB HCT MCV PLT Adult M 4.1-10.9 4.20-6.30 12.0-18.0 37.0-51.0 80-97 140-440 Adult F 4.1-10.9 4.04-5.48 12.0-18.0 37.0-51.0 80-97 140-440 0- 1 Yr 5.0-20.0 3.9-5.9 15-18 MV: 44 MV: 91 MV: 277 2-9 Yr. 6.0-17.0 3.8-5.4 11-13 MV: 37 MV: 78 MV: 300 10 Yrs. 5.0-13.0 3.8-5.4 12-15 MV: 39 MV: 80 MV: 250 NOTE: * FOR ADULT BLACK MALES AND FEMALES, NORMAL WBC IS 2.9-7.7 K/ML * FOR ADULT BLACK MALES AND FEMALES, NORMAL RBC,HGB, AND HCT IS 5% LESS SOURCE FOR DATA: [employer] 1800 OPERATION MANUAL( AUTOMATED BLOOD COUNTS AND DIFF.) APPENDIX B-3 Tbili 0.24 mg/dL 0.0-1.2 [facility] ([facility] [facility] CLASSIFICATION CHOLESTEROL FO R ADULTS CHILDREN/ADOLESCENTS* DESIRABLE: <200 MG/DL <170 MG/DL BORDER-LINE HIGH RISK: 200-239 MG/DL 170-199 MG/DL HIGH RISK: >240 MG/DL >200 MG/DL CLASS. FOR PRIMARY LDL CHOL PREVENTION: LDL CHOL-CHILD/ADOLESCENTS* DESIRABLE: <130 MG/DL <110 MG/DL BORDERLINE-HIGH RISK: 130-159 MG/DL 110-129 MG/DL HIGH RISK: >160 MG/DL >130 MG/DL *CHILDREN AND ADOLESCENTS REPRESENTS INDIVIDUALA AGED 2-19 YEARS EXCLUSIVE. CHRONIC KIDNEY DISEASE STAGING PER NKF: MALE [...] mL/min Normal 80 and above >32 mL/min NormalNORMAL RANGES Age WBC RBC HGB HCT MCV PLT Adult M 4.1-10.9 4.20-6.30 12.0-18.0 37.0-51.0 80-97 140-440 Adult F 4.1-10.9 4.04-5.48 12.0-18.0 37.0-51.0 80-97 140-440 0- 1 Yr 5.0-20.0 3.9-5.9 15-18 MV: 44 MV: 91 MV: 277 2-9 Yr. 6.0-17.0 3.8-5.4 11-13 MV: 37 MV: 78 MV: 300 10 Yrs. 5.0-13.0 3.8-5.4 12-15 MV: 39 MV: 80 MV: 250 NOTE: * FOR ADULT BLACK MALES AND FEMALES, NORMAL WBC IS 2.9-7.7 K/ML * FOR ADULT BLACK MALES AND FEMALES, NORMAL RBC,HGB, AND HCT IS 5% LESS SOURCE FOR DATA: [employer] 1800 OPERATION MANUAL( AUTOMATED BLOOD COUNTS AND DIFF.) APPENDIX B-3 eGFR 101 # [facility] ( [facility] CKD-EPI Anion Gap 16 mmol/L [facility] ([facility] CLASSIFICATION CHOLESTEROL FO R ADULTS CHILDREN/ADOLESCENTS* DESIRABLE: <200 MG/DL <170 MG/DL BORDER-LINE HIGH RISK: 200-239 MG/DL 170-199 MG/DL HIGH RISK: >240 MG/DL >200 MG/DL CLASS. FOR PRIMARY LDL CHOL PREVENTION: LDL CHOL-CHILD/ADOLESCENTS* DESIRABLE: <130 MG/DL <110 MG/DL BORDERLINE-HIGH RISK: 130-159 MG/DL 110-129 MG/DL HIGH RISK: >160 MG/DL >130 MG/DL *CHILDREN AND ADOLESCENTS REPRESENTS INDIVIDUALA AGED 2-19 YEARS EXCLUSIVE. CHRONIC KIDNEY DISEASE STAGING PER NKF: MALE [...] mL/min Normal 80 and above >32 mL/min NormalNORMAL RANGES Age WBC RBC HGB HCT MCV PLT Adult M 4.1-10.9 4.20-6.30 12.0-18.0 37.0-51.0 80-97 140-440 Adult F 4.1-10.9 4.04-5.48 12.0-18.0 37.0-51.0 80-97 140-440 0- 1 Yr 5.0-20.0 3.9-5.9 15-18 MV: 44 MV: 91 MV: 277 2-9 Yr. 6.0-17.0 3.8-5.4 11-13 MV: 37 MV: 78 MV: 300 10 Yrs. 5.0-13.0 3.8-5.4 12-15 MV: 39 MV: 80 MV: 250 NOTE: * FOR ADULT BLACK MALES AND FEMALES, NORMAL WBC IS 2.9-7.7 K/ML * FOR ADULT BLACK MALES AND FEMALES, NORMAL RBC,HGB, AND HCT IS 5% LESS SOURCE FOR DATA: [employer] DYN 1800 OPERATION MANUAL( AUTOMATED BLOOD COUNTS AND DIFF.) APPENDIX B-3 eGFR Non-Afr. Fijian 87 # ALAN ([facility] CKD-EPI ID Date Data Source [id number] 10/28/2019 01:39:00 PM EST ALAN ([facility] Name Value Range Interpretation Code Description Data Trina rce(s) Supporting Document(s) WBC 9.1 10E3/uL 4.1-10.9 ALAN ([facility] CLASSIFICATION CHOLESTEROL FO R ADULTS CHILDREN/ADOLESCENTS* DESIRABLE: <200 MG/DL <170 MG/DL BORDER-LINE HIGH RISK: 200-239 MG/DL 170-199 MG/DL HIGH RISK: >240 MG/DL >200 MG/DL CLASS. FOR PRIMARY LDL CHOL PREVENTION: LDL CHOL-CHILD/ADOLESCENTS* DESIRABLE: <130 MG/DL <110 MG/DL BORDERLINE-HIGH RISK: 130-159 MG/DL 110-129 MG/DL HIGH RISK: >160 MG/DL >130 MG/DL *CHILDREN AND ADOLESCENTS REPRESENTS INDIVIDUALA AGED 2-19 YEARS EXCLUSIVE. CHRONIC KIDNEY DISEASE STAGING PER NKF: MALE [...] mL/min Normal 80 and above >32 mL/min NormalNORMAL RANGES Age WBC RBC HGB HCT MCV PLT Adult M 4.1-10.9 4.20-6.30 12.0-18.0 37.0-51.0 80-97 140-440 Adult F 4.1-10.9 4.04-5.48 12.0-18.0 37.0-51.0 80-97 140-440 0- 1 Yr 5.0-20.0 3.9-5.9 15-18 MV: 44 MV: 91 MV: 277 2-9 Yr. 6.0-17.0 3.8-5.4 11-13 MV: 37 MV: 78 MV: 300 10 Yrs. 5.0-13.0 3.8-5.4 12-15 MV: 39 MV: 80 MV: 250 NOTE: * FOR ADULT BLACK MALES AND FEMALES, NORMAL WBC IS 2.9-7.7 K/ML * FOR ADULT BLACK MALES AND FEMALES, NORMAL RBC,HGB, AND HCT IS 5% LESS SOURCE FOR DATA: [employer] DYN 1800 OPERATION MANUAL( AUTOMATED BLOOD COUNTS AND DIFF.) APPENDIX B-3 RBC 4.71 10E6/uL 4.20-6.30 [facility] ([facility] CLASSIFICATION CHOLESTEROL FO R ADULTS CHILDREN/ADOLESCENTS* DESIRABLE: <200 MG/DL <170 MG/DL BORDER-LINE HIGH RISK: 200-239 MG/DL 170-199 MG/DL HIGH RISK: >240 MG/DL >200 MG/DL CLASS. FOR PRIMARY LDL CHOL PREVENTION: LDL CHOL-CHILD/ADOLESCENTS* DESIRABLE: <130 MG/DL <110 MG/DL BORDERLINE-HIGH RISK: 130-159 MG/DL 110-129 MG/DL HIGH RISK: >160 MG/DL >130 MG/DL *CHILDREN AND ADOLESCENTS REPRESENTS INDIVIDUALA AGED 2-19 YEARS EXCLUSIVE. CHRONIC KIDNEY DISEASE STAGING PER NKF: MALE [...] mL/min Normal 80 and above >32 mL/min NormalNORMAL RANGES Age WBC RBC HGB HCT MCV PLT Adult M 4.1-10.9 4.20-6.30 12.0-18.0 37.0-51.0 80-97 140-440 Adult F 4.1-10.9 4.04-5.48 12.0-18.0 37.0-51.0 80-97 140-440 0- 1 Yr 5.0-20.0 3.9-5.9 15-18 MV: 44 MV: 91 MV: 277 2-9 Yr. 6.0-17.0 3.8-5.4 11-13 MV: 37 MV: 78 MV: 300 10 Yrs. 5.0-13.0 3.8-5.4 12-15 MV: 39 MV: 80 MV: 250 NOTE: * FOR ADULT BLACK MALES AND FEMALES, NORMAL WBC IS 2.9-7.7 K/ML * FOR ADULT BLACK MALES AND FEMALES, NORMAL RBC,HGB, AND HCT IS 5% LESS SOURCE FOR DATA: [employer] 1800 OPERATION MANUAL( AUTOMATED BLOOD COUNTS AND DIFF.) APPENDIX B-3 HCT 42.6 % 37.0-51.0 [facility] ([facility] CLASSIFICATION CHOLESTEROL FO R ADULTS CHILDREN/ADOLESCENTS* DESIRABLE: <200 MG/DL <170 MG/DL BORDER-LINE HIGH RISK: 200-239 MG/DL 170-199 MG/DL HIGH RISK: >240 MG/DL >200 MG/DL CLASS. FOR PRIMARY LDL CHOL PREVENTION: LDL CHOL-CHILD/ADOLESCENTS* DESIRABLE: <130 MG/DL <110 MG/DL BORDERLINE-HIGH RISK: 130-159 MG/DL 110-129 MG/DL HIGH RISK: >160 MG/DL >130 MG/DL *CHILDREN AND ADOLESCENTS REPRESENTS INDIVIDUALA AGED 2-19 YEARS EXCLUSIVE. CHRONIC KIDNEY DISEASE STAGING PER NKF: MALE [...] mL/min Normal 80 and above >32 mL/min NormalNORMAL RANGES Age WBC RBC HGB HCT MCV PLT Adult M 4.1-10.9 4.20-6.30 12.0-18.0 37.0-51.0 80-97 140-440 Adult F 4.1-10.9 4.04-5.48 12.0-18.0 37.0-51.0 80-97 140-440 0- 1 Yr 5.0-20.0 3.9-5.9 15-18 MV: 44 MV: 91 MV: 277 2-9 Yr. 6.0-17.0 3.8-5.4 11-13 MV: 37 MV: 78 MV: 300 10 Yrs. 5.0-13.0 3.8-5.4 12-15 MV: 39 MV: 80 MV: 250 NOTE: * FOR ADULT BLACK MALES AND FEMALES, NORMAL WBC IS 2.9-7.7 K/ML * FOR ADULT BLACK MALES AND FEMALES, NORMAL RBC,HGB, AND HCT IS 5% LESS SOURCE FOR DATA: [employer] DYN 1800 OPERATION MANUAL( AUTOMATED BLOOD COUNTS AND DIFF.) APPENDIX B-3 HGB 13.1 g/dL 12.0-18.0 [facility] ([facility] CLASSIFICATION CHOLESTEROL FO R ADULTS CHILDREN/ADOLESCENTS* DESIRABLE: <200 MG/DL <170 MG/DL BORDER-LINE HIGH RISK: 200-239 MG/DL 170-199 MG/DL HIGH RISK: >240 MG/DL >200 MG/DL CLASS. FOR PRIMARY LDL CHOL PREVENTION: LDL CHOL-CHILD/ADOLESCENTS* DESIRABLE: <130 MG/DL <110 MG/DL BORDERLINE-HIGH RISK: 130-159 MG/DL 110-129 MG/DL HIGH RISK: >160 MG/DL >130 MG/DL *CHILDREN AND ADOLESCENTS REPRESENTS INDIVIDUALA AGED 2-19 YEARS EXCLUSIVE. CHRONIC KIDNEY DISEASE STAGING PER NKF: MALE [...] mL/min Normal 80 and above >32 mL/min NormalNORMAL RANGES Age WBC RBC HGB HCT MCV PLT Adult M 4.1-10.9 4.20-6.30 12.0-18.0 37.0-51.0 80-97 140-440 Adult F 4.1-10.9 4.04-5.48 12.0-18.0 37.0-51.0 80-97 140-440 0- 1 Yr 5.0-20.0 3.9-5.9 15-18 MV: 44 MV: 91 MV: 277 2-9 Yr. 6.0-17.0 3.8-5.4 11-13 MV: 37 MV: 78 MV: 300 10 Yrs. 5.0-13.0 3.8-5.4 12-15 MV: 39 MV: 80 MV: 250 NOTE: * FOR ADULT BLACK MALES AND FEMALES, NORMAL WBC IS 2.9-7.7 K/ML * FOR ADULT BLACK MALES AND FEMALES, NORMAL RBC,HGB, AND HCT IS 5% LESS SOURCE FOR DATA: [employer] 1800 OPERATION MANUAL( AUTOMATED BLOOD COUNTS AND DIFF.) APPENDIX B-3 MCH 27.8 pg 26.0-32.0 [facility] ([facility] CLASSIFICATION CHOLESTEROL FO R ADULTS CHILDREN/ADOLESCENTS* DESIRABLE: <200 MG/DL <170 MG/DL BORDER-LINE HIGH RISK: 200-239 MG/DL 170-199 MG/DL HIGH RISK: >240 MG/DL >200 MG/DL CLASS. FOR PRIMARY LDL CHOL PREVENTION: LDL CHOL-CHILD/ADOLESCENTS* DESIRABLE: <130 MG/DL <110 MG/DL BORDERLINE-HIGH RISK: 130-159 MG/DL 110-129 MG/DL HIGH RISK: >160 MG/DL >130 MG/DL *CHILDREN AND ADOLESCENTS REPRESENTS INDIVIDUALA AGED 2-19 YEARS EXCLUSIVE. CHRONIC KIDNEY DISEASE STAGING PER NKF: MALE [...] mL/min Normal 80 and above >32 mL/min NormalNORMAL RANGES Age WBC RBC HGB HCT MCV PLT Adult M 4.1-10.9 4.20-6.30 12.0-18.0 37.0-51.0 80-97 140-440 Adult F 4.1-10.9 4.04-5.48 12.0-18.0 37.0-51.0 80-97 140-440 0- 1 Yr 5.0-20.0 3.9-5.9 15-18 MV: 44 MV: 91 MV: 277 2-9 Yr. 6.0-17.0 3.8-5.4 11-13 MV: 37 MV: 78 MV: 300 10 Yrs. 5.0-13.0 3.8-5.4 12-15 MV: 39 MV: 80 MV: 250 NOTE: * FOR ADULT BLACK MALES AND FEMALES, NORMAL WBC IS 2.9-7.7 K/ML * FOR ADULT BLACK MALES AND FEMALES, NORMAL RBC,HGB, AND HCT IS 5% LESS SOURCE FOR DATA: [employer] 1800 OPERATION MANUAL( AUTOMATED BLOOD COUNTS AND DIFF.) APPENDIX B-3 MCV 90.4 fL 80.0-97.0 [facility] CLASSIFICATION CHOLESTEROL FO R ADULTS CHILDREN/ADOLESCENTS* DESIRABLE: <200 MG/DL <170 MG/DL BORDER-LINE HIGH RISK: 200-239 MG/DL 170-199 MG/DL HIGH RISK: >240 MG/DL >200 MG/DL CLASS. FOR PRIMARY LDL CHOL PREVENTION: LDL CHOL-CHILD/ADOLESCENTS* DESIRABLE: <130 MG/DL <110 MG/DL BORDERLINE-HIGH RISK: 130-159 MG/DL 110-129 MG/DL HIGH RISK: >160 MG/DL >130 MG/DL *CHILDREN AND ADOLESCENTS REPRESENTS INDIVIDUALA AGED 2-19 YEARS EXCLUSIVE. CHRONIC KIDNEY DISEASE STAGING PER NKF: MALE [...] mL/min Normal 80 and above >32 mL/min NormalNORMAL RANGES Age WBC RBC HGB HCT MCV PLT Adult M 4.1-10.9 4.20-6.30 12.0-18.0 37.0-51.0 80-97 140-440 Adult F 4.1-10.9 4.04-5.48 12.0-18.0 37.0-51.0 80-97 140-440 0- 1 Yr 5.0-20.0 3.9-5.9 15-18 MV: 44 MV: 91 MV: 277 2-9 Yr. 6.0-17.0 3.8-5.4 11-13 MV: 37 MV: 78 MV: 300 10 Yrs. 5.0-13.0 3.8-5.4 12-15 MV: 39 MV: 80 MV: 250 NOTE: * FOR ADULT BLACK MALES AND FEMALES, NORMAL WBC IS 2.9-7.7 K/ML * FOR ADULT BLACK MALES AND FEMALES, NORMAL RBC,HGB, AND HCT IS 5% LESS SOURCE FOR DATA: [employer] 1800 OPERATION MANUAL( AUTOMATED BLOOD COUNTS AND DIFF.) APPENDIX B-3 MCHC 30.8 g/dL 31.0-36.0 Below low normal [facility] ( [facility] CLASSIFICATION CHOLESTEROL FO R ADULTS CHILDREN/ADOLESCENTS* DESIRABLE: <200 MG/DL <170 MG/DL BORDER-LINE HIGH RISK: 200-239 MG/DL 170-199 MG/DL HIGH RISK: >240 MG/DL >200 MG/DL CLASS. FOR PRIMARY LDL CHOL PREVENTION: LDL CHOL-CHILD/ADOLESCENTS* DESIRABLE: <130 MG/DL <110 MG/DL BORDERLINE-HIGH RISK: 130-159 MG/DL 110-129 MG/DL HIGH RISK: >160 MG/DL >130 MG/DL *CHILDREN AND ADOLESCENTS REPRESENTS INDIVIDUALA AGED 2-19 YEARS EXCLUSIVE. CHRONIC KIDNEY DISEASE STAGING PER NKF: MALE [...] mL/min Normal 80 and above >32 mL/min NormalNORMAL RANGES Age WBC RBC HGB HCT MCV PLT Adult M 4.1-10.9 4.20-6.30 12.0-18.0 37.0-51.0 80-97 140-440 Adult F 4.1-10.9 4.04-5.48 12.0-18.0 37.0-51.0 80-97 140-440 0- 1 Yr 5.0-20.0 3.9-5.9 15-18 MV: 44 MV: 91 MV: 277 2-9 Yr. 6.0-17.0 3.8-5.4 11-13 MV: 37 MV: 78 MV: 300 10 Yrs. 5.0-13.0 3.8-5.4 12-15 MV: 39 MV: 80 MV: 250 NOTE: * FOR ADULT BLACK MALES AND FEMALES, NORMAL WBC IS 2.9-7.7 K/ML * FOR ADULT BLACK MALES AND FEMALES, NORMAL RBC,HGB, AND HCT IS 5% LESS SOURCE FOR DATA: [employer] 1800 OPERATION MANUAL( AUTOMATED BLOOD COUNTS AND DIFF.) APPENDIX B-3 PLT 268 10E3/uL 140-440 [facility] ([facility] CLASSIFICATION CHOLESTEROL FO R ADULTS CHILDREN/ADOLESCENTS* DESIRABLE: <200 MG/DL <170 MG/DL BORDER-LINE HIGH RISK: 200-239 MG/DL 170-199 MG/DL HIGH RISK: >240 MG/DL >200 MG/DL CLASS. FOR PRIMARY LDL CHOL PREVENTION: LDL CHOL-CHILD/ADOLESCENTS* DESIRABLE: <130 MG/DL <110 MG/DL BORDERLINE-HIGH RISK: 130-159 MG/DL 110-129 MG/DL HIGH RISK: >160 MG/DL >130 MG/DL *CHILDREN AND ADOLESCENTS REPRESENTS INDIVIDUALA AGED 2-19 YEARS EXCLUSIVE. CHRONIC KIDNEY DISEASE STAGING PER NKF: MALE [...] mL/min Normal 80 and above >32 mL/min NormalNORMAL RANGES Age WBC RBC HGB HCT MCV PLT Adult M 4.1-10.9 4.20-6.30 12.0-18.0 37.0-51.0 80-97 140-440 Adult F 4.1-10.9 4.04-5.48 12.0-18.0 37.0-51.0 80-97 140-440 0- 1 Yr 5.0-20.0 3.9-5.9 15-18 MV: 44 MV: 91 MV: 277 2-9 Yr. 6.0-17.0 3.8-5.4 11-13 MV: 37 MV: 78 MV: 300 10 Yrs. 5.0-13.0 3.8-5.4 12-15 MV: 39 MV: 80 MV: 250 NOTE: * FOR ADULT BLACK MALES AND FEMALES, NORMAL WBC IS 2.9-7.7 K/ML * FOR ADULT BLACK MALES AND FEMALES, NORMAL RBC,HGB, AND HCT IS 5% LESS SOURCE FOR DATA: [employer] DYN 1800 OPERATION MANUAL( AUTOMATED BLOOD COUNTS AND DIFF.) APPENDIX B-3 Lym% 18.7 % 10.0-58.5 [facility] CLASSIFICATION CHOLESTEROL FO R ADULTS CHILDREN/ADOLESCENTS* DESIRABLE: <200 MG/DL <170 MG/DL BORDER-LINE HIGH RISK: 200-239 MG/DL 170-199 MG/DL HIGH RISK: >240 MG/DL >200 MG/DL CLASS. FOR PRIMARY LDL CHOL PREVENTION: LDL CHOL-CHILD/ADOLESCENTS* DESIRABLE: <130 MG/DL <110 MG/DL BORDERLINE-HIGH RISK: 130-159 MG/DL 110-129 MG/DL HIGH RISK: >160 MG/DL >130 MG/DL *CHILDREN AND ADOLESCENTS REPRESENTS INDIVIDUALA AGED 2-19 YEARS EXCLUSIVE. CHRONIC KIDNEY DISEASE STAGING PER NKF: MALE [...] mL/min Normal 80 and above >32 mL/min NormalNORMAL RANGES Age WBC RBC HGB HCT MCV PLT Adult M 4.1-10.9 4.20-6.30 12.0-18.0 37.0-51.0 80-97 140-440 Adult F 4.1-10.9 4.04-5.48 12.0-18.0 37.0-51.0 80-97 140-440 0- 1 Yr 5.0-20.0 3.9-5.9 15-18 MV: 44 MV: 91 MV: 277 2-9 Yr. 6.0-17.0 3.8-5.4 11-13 MV: 37 MV: 78 MV: 300 10 Yrs. 5.0-13.0 3.8-5.4 12-15 MV: 39 MV: 80 MV: 250 NOTE: * FOR ADULT BLACK MALES AND FEMALES, NORMAL WBC IS 2.9-7.7 K/ML * FOR ADULT BLACK MALES AND FEMALES, NORMAL RBC,HGB, AND HCT IS 5% LESS SOURCE FOR DATA: [employer] 1800 OPERATION MANUAL( AUTOMATED BLOOD COUNTS AND DIFF.) APPENDIX B-3 RDW-CV 14.5 % 11.5-14.5 [facility] ([facility] CLASSIFICATION CHOLESTEROL FO R ADULTS CHILDREN/ADOLESCENTS* DESIRABLE: <200 MG/DL <170 MG/DL BORDER-LINE HIGH RISK: 200-239 MG/DL 170-199 MG/DL HIGH RISK: >240 MG/DL >200 MG/DL CLASS. FOR PRIMARY LDL CHOL PREVENTION: LDL CHOL-CHILD/ADOLESCENTS* DESIRABLE: <130 MG/DL <110 MG/DL BORDERLINE-HIGH RISK: 130-159 MG/DL 110-129 MG/DL HIGH RISK: >160 MG/DL >130 MG/DL *CHILDREN AND ADOLESCENTS REPRESENTS INDIVIDUALA AGED 2-19 YEARS EXCLUSIVE. CHRONIC KIDNEY DISEASE STAGING PER NKF: MALE [...] mL/min Normal 80 and above >32 mL/min NormalNORMAL RANGES Age WBC RBC HGB HCT MCV PLT Adult M 4.1-10.9 4.20-6.30 12.0-18.0 37.0-51.0 80-97 140-440 Adult F 4.1-10.9 4.04-5.48 12.0-18.0 37.0-51.0 80-97 140-440 0- 1 Yr 5.0-20.0 3.9-5.9 15-18 MV: 44 MV: 91 MV: 277 2-9 Yr. 6.0-17.0 3.8-5.4 11-13 MV: 37 MV: 78 MV: 300 10 Yrs. 5.0-13.0 3.8-5.4 12-15 MV: 39 MV: 80 MV: 250 NOTE: * FOR ADULT BLACK MALES AND FEMALES, NORMAL WBC IS 2.9-7.7 K/ML * FOR ADULT BLACK MALES AND FEMALES, NORMAL RBC,HGB, AND HCT IS 5% LESS SOURCE FOR DATA: [employer] 1800 OPERATION MANUAL( AUTOMATED BLOOD COUNTS AND DIFF.) APPENDIX B-3 Neut% 70.1 % 37.0-92.0 [facility] ([facility] CLASSIFICATION CHOLESTEROL FO R ADULTS CHILDREN/ADOLESCENTS* DESIRABLE: <200 MG/DL <170 MG/DL BORDER-LINE HIGH RISK: 200-239 MG/DL 170-199 MG/DL HIGH RISK: >240 MG/DL >200 MG/DL CLASS. FOR PRIMARY LDL CHOL PREVENTION: LDL CHOL-CHILD/ADOLESCENTS* DESIRABLE: <130 MG/DL <110 MG/DL BORDERLINE-HIGH RISK: 130-159 MG/DL 110-129 MG/DL HIGH RISK: >160 MG/DL >130 MG/DL *CHILDREN AND ADOLESCENTS REPRESENTS INDIVIDUALA AGED 2-19 YEARS EXCLUSIVE. CHRONIC KIDNEY DISEASE STAGING PER NKF: MALE [...] mL/min Normal 80 and above >32 mL/min NormalNORMAL RANGES Age WBC RBC HGB HCT MCV PLT Adult M 4.1-10.9 4.20-6.30 12.0-18.0 37.0-51.0 80-97 140-440 Adult F 4.1-10.9 4.04-5.48 12.0-18.0 37.0-51.0 80-97 140-440 0- 1 Yr 5.0-20.0 3.9-5.9 15-18 MV: 44 MV: 91 MV: 277 2-9 Yr. 6.0-17.0 3.8-5.4 11-13 MV: 37 MV: 78 MV: 300 10 Yrs. 5.0-13.0 3.8-5.4 12-15 MV: 39 MV: 80 MV: 250 NOTE: * FOR ADULT BLACK MALES AND FEMALES, NORMAL WBC IS 2.9-7.7 K/ML * FOR ADULT BLACK MALES AND FEMALES, NORMAL RBC,HGB, AND HCT IS 5% LESS SOURCE FOR DATA: [employer] 1800 OPERATION MANUAL( AUTOMATED BLOOD COUNTS AND DIFF.) APPENDIX B-3 MXD% 11.2 % 0.1-24.0 [facility] ([facility] CLASSIFICATION CHOLESTEROL FO R ADULTS CHILDREN/ADOLESCENTS* DESIRABLE: <200 MG/DL <170 MG/DL BORDER-LINE HIGH RISK: 200-239 MG/DL 170-199 MG/DL HIGH RISK: >240 MG/DL >200 MG/DL CLASS. FOR PRIMARY LDL CHOL PREVENTION: LDL CHOL-CHILD/ADOLESCENTS* DESIRABLE: <130 MG/DL <110 MG/DL BORDERLINE-HIGH RISK: 130-159 MG/DL 110-129 MG/DL HIGH RISK: >160 MG/DL >130 MG/DL *CHILDREN AND ADOLESCENTS REPRESENTS INDIVIDUALA AGED 2-19 YEARS EXCLUSIVE. CHRONIC KIDNEY DISEASE STAGING PER NKF: MALE [...] mL/min Normal 80 and above >32 mL/min NormalNORMAL RANGES Age WBC RBC HGB HCT MCV PLT Adult M 4.1-10.9 4.20-6.30 12.0-18.0 37.0-51.0 80-97 140-440 Adult F 4.1-10.9 4.04-5.48 12.0-18.0 37.0-51.0 80-97 140-440 0- 1 Yr 5.0-20.0 3.9-5.9 15-18 MV: 44 MV: 91 MV: 277 2-9 Yr. 6.0-17.0 3.8-5.4 11-13 MV: 37 MV: 78 MV: 300 10 Yrs. 5.0-13.0 3.8-5.4 12-15 MV: 39 MV: 80 MV: 250 NOTE: * FOR ADULT BLACK MALES AND FEMALES, NORMAL WBC IS 2.9-7.7 K/ML * FOR ADULT BLACK MALES AND FEMALES, NORMAL RBC,HGB, AND HCT IS 5% LESS SOURCE FOR DATA: [employer] 1800 OPERATION MANUAL( AUTOMATED BLOOD COUNTS AND DIFF.) APPENDIX B-3 Neut# 6.4 % 2.0-7.8 [facility] CLASSIFICATION CHOLESTEROL FO R ADULTS CHILDREN/ADOLESCENTS* DESIRABLE: <200 MG/DL <170 MG/DL BORDER-LINE HIGH RISK: 200-239 MG/DL 170-199 MG/DL HIGH RISK: >240 MG/DL >200 MG/DL CLASS. FOR PRIMARY LDL CHOL PREVENTION: LDL CHOL-CHILD/ADOLESCENTS* DESIRABLE: <130 MG/DL <110 MG/DL BORDERLINE-HIGH RISK: 130-159 MG/DL 110-129 MG/DL HIGH RISK: >160 MG/DL >130 MG/DL *CHILDREN AND ADOLESCENTS REPRESENTS INDIVIDUALA AGED 2-19 YEARS EXCLUSIVE. CHRONIC KIDNEY DISEASE STAGING PER NKF: MALE [...] mL/min Normal 80 and above >32 mL/min NormalNORMAL RANGES Age WBC RBC HGB HCT MCV PLT Adult M 4.1-10.9 4.20-6.30 12.0-18.0 37.0-51.0 80-97 140-440 Adult F 4.1-10.9 4.04-5.48 12.0-18.0 37.0-51.0 80-97 140-440 0- 1 Yr 5.0-20.0 3.9-5.9 15-18 MV: 44 MV: 91 MV: 277 2-9 Yr. 6.0-17.0 3.8-5.4 11-13 MV: 37 MV: 78 MV: 300 10 Yrs. 5.0-13.0 3.8-5.4 12-15 MV: 39 MV: 80 MV: 250 NOTE: * FOR ADULT BLACK MALES AND FEMALES, NORMAL WBC IS 2.9-7.7 K/ML * FOR ADULT BLACK MALES AND FEMALES, NORMAL RBC,HGB, AND HCT IS 5% LESS SOURCE FOR DATA: [employer] 1800 OPERATION MANUAL( AUTOMATED BLOOD COUNTS AND DIFF.) APPENDIX B-3 Lym# 1.7 10E3/uL 0.6-4.1 [facility] ([facility] CLASSIFICATION CHOLESTEROL FO R ADULTS CHILDREN/ADOLESCENTS* DESIRABLE: <200 MG/DL <170 MG/DL BORDER-LINE HIGH RISK: 200-239 MG/DL 170-199 MG/DL HIGH RISK: >240 MG/DL >200 MG/DL CLASS. FOR PRIMARY LDL CHOL PREVENTION: LDL CHOL-CHILD/ADOLESCENTS* DESIRABLE: <130 MG/DL <110 MG/DL BORDERLINE-HIGH RISK: 130-159 MG/DL 110-129 MG/DL HIGH RISK: >160 MG/DL >130 MG/DL *CHILDREN AND ADOLESCENTS REPRESENTS INDIVIDUALA AGED 2-19 YEARS EXCLUSIVE. CHRONIC KIDNEY DISEASE STAGING PER NKF: MALE [...] mL/min Normal 80 and above >32 mL/min NormalNORMAL RANGES Age WBC RBC HGB HCT MCV PLT Adult M 4.1-10.9 4.20-6.30 12.0-18.0 37.0-51.0 80-97 140-440 Adult F 4.1-10.9 4.04-5.48 12.0-18.0 37.0-51.0 80-97 140-440 0- 1 Yr 5.0-20.0 3.9-5.9 15-18 MV: 44 MV: 91 MV: 277 2-9 Yr. 6.0-17.0 3.8-5.4 11-13 MV: 37 MV: 78 MV: 300 10 Yrs. 5.0-13.0 3.8-5.4 12-15 MV: 39 MV: 80 MV: 250 NOTE: * FOR ADULT BLACK MALES AND FEMALES, NORMAL WBC IS 2.9-7.7 K/ML * FOR ADULT BLACK MALES AND FEMALES, NORMAL RBC,HGB, AND HCT IS 5% LESS SOURCE FOR DATA: [employer] 1800 OPERATION MANUAL( AUTOMATED BLOOD COUNTS AND DIFF.) APPENDIX B-3 MPV 10.5 fL 9.0-13.0 [facility] CLASSIFICATION CHOLESTEROL FO R ADULTS CHILDREN/ADOLESCENTS* DESIRABLE: <200 MG/DL <170 MG/DL BORDER-LINE HIGH RISK: 200-239 MG/DL 170-199 MG/DL HIGH RISK: >240 MG/DL >200 MG/DL CLASS. FOR PRIMARY LDL CHOL PREVENTION: LDL CHOL-CHILD/ADOLESCENTS* DESIRABLE: <130 MG/DL <110 MG/DL BORDERLINE-HIGH RISK: 130-159 MG/DL 110-129 MG/DL HIGH RISK: >160 MG/DL >130 MG/DL *CHILDREN AND ADOLESCENTS REPRESENTS INDIVIDUALA AGED 2-19 YEARS EXCLUSIVE. CHRONIC KIDNEY DISEASE STAGING PER NKF: MALE [...] mL/min Normal 80 and above >32 mL/min NormalNORMAL RANGES Age WBC RBC HGB HCT MCV PLT Adult M 4.1-10.9 4.20-6.30 12.0-18.0 37.0-51.0 80-97 140-440 Adult F 4.1-10.9 4.04-5.48 12.0-18.0 37.0-51.0 80-97 140-440 0- 1 Yr 5.0-20.0 3.9-5.9 15-18 MV: 44 MV: 91 MV: 277 2-9 Yr. 6.0-17.0 3.8-5.4 11-13 MV: 37 MV: 78 MV: 300 10 Yrs. 5.0-13.0 3.8-5.4 12-15 MV: 39 MV: 80 MV: 250 NOTE: * FOR ADULT BLACK MALES AND FEMALES, NORMAL WBC IS 2.9-7.7 K/ML * FOR ADULT BLACK MALES AND FEMALES, NORMAL RBC,HGB, AND HCT IS 5% LESS SOURCE FOR DATA: [employer] 1800 OPERATION MANUAL( AUTOMATED BLOOD COUNTS AND DIFF.) APPENDIX B-3 MXD# 1.0 10E3/uL 0.0-1.8 [facility] ([facility] CLASSIFICATION CHOLESTEROL FO R ADULTS CHILDREN/ADOLESCENTS* DESIRABLE: <200 MG/DL <170 MG/DL BORDER-LINE HIGH RISK: 200-239 MG/DL 170-199 MG/DL HIGH RISK: >240 MG/DL >200 MG/DL CLASS. FOR PRIMARY LDL CHOL PREVENTION: LDL CHOL-CHILD/ADOLESCENTS* DESIRABLE: <130 MG/DL <110 MG/DL BORDERLINE-HIGH RISK: 130-159 MG/DL 110-129 MG/DL HIGH RISK: >160 MG/DL >130 MG/DL *CHILDREN AND ADOLESCENTS REPRESENTS INDIVIDUALA AGED 2-19 YEARS EXCLUSIVE. CHRONIC KIDNEY DISEASE STAGING PER NKF: MALE [...] mL/min Normal 80 and above >32 mL/min NormalNORMAL RANGES Age WBC RBC HGB HCT MCV PLT Adult M 4.1-10.9 4.20-6.30 12.0-18.0 37.0-51.0 80-97 140-440 Adult F 4.1-10.9 4.04-5.48 12.0-18.0 37.0-51.0 80-97 140-440 0- 1 Yr 5.0-20.0 3.9-5.9 15-18 MV: 44 MV: 91 MV: 277 2-9 Yr. 6.0-17.0 3.8-5.4 11-13 MV: 37 MV: 78 MV: 300 10 Yrs. 5.0-13.0 3.8-5.4 12-15 MV: 39 MV: 80 MV: 250 NOTE: * FOR ADULT BLACK MALES AND FEMALES, NORMAL WBC IS 2.9-7.7 K/ML * FOR ADULT BLACK MALES AND FEMALES, NORMAL RBC,HGB, AND HCT IS 5% LESS SOURCE FOR DATA: [employer] 1800 OPERATION MANUAL( AUTOMATED BLOOD COUNTS AND DIFF.) APPENDIX B-3 ID Date Data Source [id number] 10/28/2019 12:12:00 PM [facility]IGI PHILLIPS ([facility] Name Value Range Interpretation Code Description Data Trina rce(s) Supporting Document(s) Alb 30 mg/L 1-30 [facility] ([facility] Creatinine, Urine 200 mg/dL 10-300 [facility] ([facility] A/C Ratio <30 mg/g % [facility] ([facility] ID Date Data Source [id number] 10/28/2019 12:12:00 PM EST [facility] ([facility] Name Value Range Interpretation Code Description Data Trina rce(s) Supporting Document(s) Hemoglobin A1c/Hemoglobin.total in Blood 7.1 % 4.50-6.20 Above high normal [facility] ([facility] ID Date Data Source [id number] 10/28/2019 12:12:00 PM EST [facility] ([facility] Name Value Range Interpretation Code Description Data Trina rce(s) Supporting Document(s) Appearance of Urine CLEAR [facility] ([facility] Color Urine YELLOW [facility] ([facility] PH Urine 7.0 5.0-8.0 [facility] ([facility] Specific Hope 1.020 1.00-1.03 [facility] ([facility] Glucose Urine NEG [facility] ([facility] Bilirubin.total [Presence] in Urine by Test strip NEG [facility] ([facility] Ketones NEG [facility] ([facility] Blood Urine TRACE [facility] ([facility] Protein Urine NEG [facility] ([facility] Urobilinogen 0.2 EU/dl 0.2-1.0 [facility] ([facility] Nitrite NEG [facility] ([facility] Leukocytes 1+ Above high normal [facility] ([facility] Procedure Social History Code Duration Value Status Description Data Source(s ) Alcohol intake 09/11/2020 12:00:00 AM EDT No completed [facility] Smoking 09/11/2020 12:00:00 AM EDT Former smoker completed Former smoker [facility] Smoking 07/15/2020 12:00:00 AM EDT Patient is a former smoker completed Patient is a former smoker MEDJENNIE ([facility] ) Smoking 04/06/2020 12:00:00 AM EDT - 11/12/2013 12:00:00 AM EST Patient is a former smoker completed Patient is a former smoker ALAN ([facility], ) Vital Signs ID Date Data Source UNK Name Value Range Interpretation Code Description Data Source(s) Oxygen saturation in Arterial blood by Pulse oximetry 91 % 91 % ALAN ([facility] with O2 @3L via nasal cannula Body mass index (BMI) [Ratio] 32.4 kg/m2 32.4 k g/m2 MEDJENNIE ([facility] [place] body weight 148 [lb_av] 148 [lb_av] MEDEN T ([facility] Body weight 207.00 [lb_av] 207.00 [lb_av] MEDEN T ([facility] Body height 67 [in_i] 67 [in_i] MEDJENNIE ([facility] 5'7" Respiratory rate 22 /min 22 /min MEDJENNIE ( [facility] Heart rate 94 /min 94 /min MEDJENNIE ([facility] Body temperature 97.1 [degF] 97.1 [degF] MEDENT ([facility] Diastolic blood pressure 64 mm[Hg] 64 mm[Hg] MEDJENNIE ([facility] Systolic blood pressure 108 mm[Hg] 108 mm[Hg] M EDJENNIE ([facility] Oxygen saturation in Arterial blood by Pulse oximetry 93 % 93 % [facility] Body mass index (BMI) [Ratio] 29.70 kg/m2 29.70 kg/m2 [facility] Body weight 93.895 kg 93.895 kg [facility] Body height 177.8 cm 177.8 cm [facility] Respiratory rate 16 /min 16 /min [facility] Heart rate 84 /min 84 /min [facility] Body mass index (BMI) [Ratio] 29.7 kg/m2 29.7 k g/m2 MEDENT ([facility]) Body weight 93.895 kg 93.895 kg MEDENT ([facility] Body weight 207.00 [lb_av] 207.00 [lb_av] MEDEN T ([facility]) Body height 70 [in_i] 70 [in_i] MEDENT ([facility] 5'10" Diastolic blood pressure 88 mm[Hg] 88 mm[Hg] MEDENT ([facility]) Systolic blood pressure 150 mm[Hg] 150 mm[Hg] M EDENT ([facility]) Diastolic blood pressure 88 mm[Hg] 88 mm[Hg] MEDENT ([facility]) Systolic blood pressure 150 mm[Hg] 150 mm[Hg] M EDENT ([facility]) Oxygen saturation in Arterial blood by Pulse oximetry 95 % 95 % MEDENT ([facility] Body mass index (BMI) [Ratio] 32.3 kg/m2 32.3 k g/m2 MEDENT ([facility] [place] body weight 148 [lb_av] 148 [lb_av] MEDEN T ([facility] Body weight 206.00 [lb_av] 206.00 [lb_av] MEDEN T ([facility] Body height 67 [in_i] 67 [in_i] MEDENT ([facility] 5'7" Respiratory rate 18 /min 18 /min MEDENT ( [facility] Heart rate 88 /min 88 /min MEDENT ([facility] Body temperature 98.2 [degF] 98.2 [degF] MEDENT ([facility] Diastolic blood pressure 78 mm[Hg] 78 mm[Hg] MEDENT ([facility] Systolic blood pressure 136 mm[Hg] 136 mm[Hg] M EDJENNIE ([facility] Oxygen saturation in Arterial blood by Pulse oximetry 95 % 95 % [facility] ([facility] (On O2 @ 3 LPM [place]) Body mass index (BMI) [Ratio] 31.8 kg/m2 31.8 k g/m2 MEDENT ([facility] [place] body weight 148 [lb_av] 148 [lb_av] MEDEN T ([facility] Body weight 203.00 [lb_av] 203.00 [lb_av] MEDEN T ([facility] Body height 67 [in_i] 67 [in_i] MEDENT ([facility] 5'7" Respiratory rate 18 /min 18 /min MEDENT ( [facility] Heart rate 74 /min 74 /min MEDENT ([facility] Body temperature 98.3 [degF] 98.3 [degF] MEDENT ([facility] Diastolic blood pressure 80 mm[Hg] 80 mm[Hg] MEDENT ([facility] Systolic blood pressure 122 mm[Hg] 122 mm[Hg] M EDENT ([facility] Body weight 94.802 kg 94.802 kg [facility] ([facility]) Body mass index (BMI) [Ratio] 31.8 kg/m2 31.8 k g/m2 MEDENT ([facility], ) Body weight 209.00 [lb_av] 209.00 [lb_av] MEDEN T ([facility]) Body height 68 [in_i] 68 [in_i] [facility] ([facility]) 5'8" Body temperature 98.8 [degF] 98.8 [degF] [facility] ([facility]) Oxygen saturation in Arterial blood by Pulse oximetry 913 % 913 % [facility] ([facility]) Heart rate 89 /min 89 /min [facility]) Diastolic blood pressure 80 mm[Hg] 80 mm[Hg] [facility] ([facility]) Systolic blood pressure 130 mm[Hg] 130 mm[Hg] M EDENT ([facility], ) Oxygen saturation in Arterial blood by Pulse oximetry 94 % 94 % ALAN ([facility] (On O2 @ 3 LPM [place]) Body mass index (BMI) [Ratio] 32.6 kg/m2 32.6 k g/m2 MEDENT ([facility] Body weight 208.00 [lb_av] 208.00 [lb_av] MEDEN T ([facility] Body height 67 [in_i] 67 [in_i] MEDENT ([facility] 5'7" Respiratory rate 20 /min 20 /min MEDENT ( [facility] Heart rate 84 /min 84 /min MEDENT ([facility] Body temperature 98.0 [degF] 98.0 [degF] MEDENT ([facility] Diastolic blood pressure 62 mm[Hg] 62 mm[Hg] MEDENT ([facility] Systolic blood pressure 120 mm[Hg] 120 mm[Hg] M EDJENNIE ([facility] Oxygen saturation in Arterial blood by Pulse oximetry 91 % 91 % MEDJENNIE ([facility] Body mass index (BMI) [Ratio] 32.7 kg/m2 32.7 k g/m2 MEDENT ([facility] Body weight 209.00 [lb_av] 209.00 [lb_av] MEDEN T ([facility] Body height 67 [in_i] 67 [in_i] MEDENT ([facility] 5'7" Respiratory rate 18 /min 18 /min MEDENT ( [facility] Heart rate 88 /min 88 /min MEDENT ([facility] Body temperature 98.4 [degF] 98.4 [degF] MEDENT ([facility] Diastolic blood pressure 60 mm[Hg] 60 mm[Hg] MEDENT ([facility] Systolic blood pressure 114 mm[Hg] 114 mm[Hg] M EDENT ([facility] Oxygen saturation in Arterial blood by Pulse oximetry 91 % 91 % MEDENT ([facility] (On O2 @ 3LPM [place]) Body mass index (BMI) [Ratio] 32.7 kg/m2 32.7 k g/m2 MEDENT ([facility] Body weight 209.00 [lb_av] 209.00 [lb_av] MEDEN T ([facility] Body height 67 [in_i] 67 [in_i] MEDENT [facility] 5'7" Respiratory rate 20 /min 20 /min MEDENT ( [facility] Heart rate 88 /min 88 /min MEDENT ([facility] Body temperature 98.0 [degF] 98.0 [degF] MEDENT ([facility] Diastolic blood pressure 66 mm[Hg] 66 mm[Hg] MEDENT ([facility] Systolic blood pressure 116 mm[Hg] 116 mm[Hg] M EDENT ([facility] Oxygen saturation in Arterial blood by Pulse oximetry 91 % 91 % MEDENT ([facility] with O2 @ 3L via [place] Body mass index (BMI) [Ratio] 33.0 kg/m2 33.0 k g/m2 MEDENT ([facility] Body weight 211.00 [lb_av] 211.00 [lb_av] MEDEN T ([facility] Body height 67 [in_i] 67 [in_i] MEDENT ([facility] 5'7" Respiratory rate 18 /min 18 /min MEDENT ( [facility] Heart rate 92 /min 92 /min MEDENT ([facility] Body temperature 98.7 [degF] 98.7 [degF] MEDENT ([facility] Diastolic blood pressure 82 mm[Hg] 82 mm[Hg] MEDENT ([facility] Systolic blood pressure 128 mm[Hg] 128 mm[Hg] M EDENT ([facility]
--- NOTE | 2020-12-14 16:32 | ECGEPIP ---
[facility] - ED Test Date: 2020-12-14 Pat Name: CASSIA COBOS Department: Room: - Gender: Male [employer] Operator Automatic: NASH : 1945 Requested By: BACILIO SOARES Order Number: [id number] Reading MD: Bacilio Osuna Measurements Intervals [place] Rate: 85 P: 36 MD: 144 QRS: 23 QRSD: 80 T: 41 QT: 358 QTc: 426 Interpretive Statements Sinus rhythm with premature atrial complexes with aberrant conduction Similar to tracing done 12-11-17 Electronically Signed on 12-14-2020 16:32:48 EST by Bacilio Osuna
[2020-12-14 16:34] LABS: RSV AMPLIFICATION NEGATIVE (NEGATIVE)
[2020-12-14] MEDS ORDERED: FURO40TA2 PO (17:09)
[2020-12-14] MEDS ORDERED: DILT30TA PO (17:09)
[2020-12-14] MEDS ORDERED: SPIR-10 PO (17:09)
[2020-12-14] MEDS ORDERED: ELIQ5TAB PO (17:09)
[2020-12-14] MEDS ORDERED: SITA50TAB PO (17:09)
[2020-12-14] MEDS ORDERED: ALBUTEROL 90 MCG/ACT 8GM HFA INHALER INH PRN (17:15)
--- NOTE | 2020-12-14 17:55 | HPEPDOC ---
[facility] Medical History & Physical Date of Admission Dec 14, 2020 Date of Service: Dec 14, 2020 History and Physical CHIEF COMPLAINT: BRBPR HISTORY OF PRESENT ILLNESS: 75 year old male with past medical history as indicated presents for sudden onset this morning of bright red blood per rectum. He noted blood on the toilet paper, in the toilet bowl, and dripping from his rectum. States his last colonoscopy was around 9-10 years ago, done in [place], and was WNL as per patient. He denies any pain, but does note history of hemorrhoids. Denies shortness of breath, chest pain, N/V/D. PAST MEDICAL HISTORY: #afib/Eliquis #HFpEF #COPD #GERD #glaucoma #PAD #HTN #diverticular disease ALLERGIES: Please see below. REVIEW OF SYSTEMS: Negative except as per HPI. HOME MEDICATIONS: Please see below. PHYSICAL EXAMINATION: VITAL SIGNS: See below General: NAD, lying comfortably in bed HEENT: NC/AT, EOMI Lungs: CTA B/L Heart: +S1S2, RRR Abd: soft, NT, +BS Ext: no edema LABORATORY DATA: See below. MICROBIOLOGY: Please see below. A/P: 75 yo male for episode of bright red blood per rectum with PMHx including afib/Eliquis and diverticular disease. #BRBPR - history of diverticular disease - clear liquid diet - hold Eliquis, continue ASA - GI c/s pending - d/w Dr. Pedersen - assistance appreciated - possible scope - serial H/H #afib - Eliquis on hold - rate controlled #HFpEF - compensated - continue home lasix #COPD - stable #GERD #glaucoma #PAD #HTN #DVT prophylaxis - mechanical Vital Signs Vital Signs Date Time Temp Pulse Resp B/P (MAP) Pulse Ox O2 Delivery O2 Flow Rate FiO2 12/14/20 17:46 152/126 (135) 12/14/20 17:45 83 93 12/14/20 16:15 18 Room Air 12/14/20 14:12 98.2 3.0 Laboratory Data Labs 24H Laboratory Tests 2 12/14/20 14:07: Immature Granulocyte % (Auto) 0.5, Neutrophils (%) (Auto) 74.9H, Lymphocytes (%) (Auto) 13.1L, Monocytes (%) (Auto) 8.5H, Eosinophils (%) (Auto) 2.7, Basophils (%) (Auto) 0.3, Neutrophils # (Auto) 8.2, Lymphocytes # (Auto) 1.4L, Monocytes # (Auto) 0.9H, Eosinophils # (Auto) 0.3, Basophils # (Auto) 0.0, Nucleated Red Blood Cells % (auto) 0.0, Prothrombin Time 15.0H, Prothromb Time International Ratio 1.15, Activated Partial Thromboplast Time 32.9, Anion Gap 2L, Glomerular Filtration Rate > 60.0, Calcium Level 8.5L, Total Bilirubin 0.3, Direct Bilirubin 0.1, Aspartate Amino Transf (AST/SGOT) 15, Alanine Aminotransferase (ALT/SGPT) 18, Alkaline Phosphatase 85, Total Creatine Kinase 71, Creatine Kinase MB 3.8H, Creatine Kinase MB Relative Index 5.35H, Troponin I < 0.02, Total Protein 7.1, Albumin 3.5, Albumin/Globulin Ratio 1.0, Lipase 128 12/14/20 15:50: Coronavirus (COVID-19)(PCR) NEGATIVE, Influenza Type A (RT-PCR) NEGATIVE, Influenza Type B (RT-PCR) NEGATIVE, Respiratory Syncytial Virus (PCR) NEGATIVE CBC/BMP Laboratory Tests 12/14/20 14:07 Home Medications Scheduled Apixaban (Eliquis) 5 Mg Tablet, 5 MG PO BID Aspirin (Aspirin EC) 81 Mg Tab, 81 MG PO DAILY Diltiazem HCl (Diltiazem HCl) 30 Mg Tablet, 30 MG PO BID Furosemide (Furosemide) 40 Mg Tablet, 40 MG PO DAILY Latanoprost (Xalatan) 0.005 % Alesha, 1 DROP OU QHS Mometasone/Formoterol (Dulera 200 Mcg/5 Mcg Inhaler) 1 Aer Aer, 1 PUFF INH BID Pantoprazole Sodium (Protonix) 40 Mg Tab, 40 MG PO DAILY Pravastatin Sodium (Pravachol) 20 Mg Tab, 20 MG PO QHS Sitagliptin (Januvia) 50 Mg Tablet, 50 MG PO DAILY Spironolactone (Spironolactone) 25 Mg Tablet, 12.5 MG PO DAILY Scheduled PRN Albuterol Sulfate (Ventolin Hfa) 108 Mcg/Act Aer, 2 PUFFS INH Q4H PRN for SHORTNESS OF BREATH Allergies Coded Allergies: aspirin (Verified Adverse Reaction, Mild, UPSET STOMACH, 12/14/20) CAN TAKE ENTERIC COATED A-FIB/CHADSVASC A-FIB History Current/History of A-Fib/PAF?: Yes Current PO Anticoag Therapy: Yes JACKIE LÓPEZ MD Dec 14, 2020 17:55
--- OUTSIDE RECORDS SUMMARY | 2020-12-14 18:12 | CCD ---
Author Author [facility] Organization [facility] Address Unknown Phone Unavailable Care Team Providers Care Real Estate Leasing Manager Name Role Phone Barraclough, Rima PA Unavailable [...] Fish, J Hesham Unavailable Unavailable Jemima Smallwood LICENSED NUCLEAR OPERATOR Unavailable Unavailable Selin, N Adonis LICENSED NUCLEAR OPERATOR Unavailable Unavailable [place], N Adonis LICENSED NUCLEAR OPERATOR Unavailable Unavailable [place], N Adonis LICENSED NUCLEAR OPERATOR Unavailable Unavailable Selin, N Adonis LICENSED NUCLEAR OPERATOR Unavailable Unavailable Selin, N Adonis LICENSED NUCLEAR OPERATOR Unavailable Unavailable Selin, N Adonis LICENSED NUCLEAR OPERATOR Unavailable Unavailable Selin, N Adonis LICENSED NUCLEAR OPERATOR Unavailable Unavailable Selin, N Adonis LICENSED NUCLEAR OPERATOR Unavailable Unavailable Selin, N Adonis LICENSED NUCLEAR OPERATOR Unavailable Unavailable [place], N Adonis LICENSED NUCLEAR OPERATOR Unavailable Unavailable Selin, N Adonis LICENSED NUCLEAR OPERATOR Unavailable Unavailable Selin, N Adonis LICENSED NUCLEAR OPERATOR Unavailable Unavailable Selin, N Adonis LICENSED NUCLEAR OPERATOR Unavailable Unavailable [place], N Adonis LICENSED NUCLEAR OPERATOR Unavailable Unavailable [place], N Adonis LICENSED NUCLEAR OPERATOR Unavailable Unavailable Selin, N Adonis LICENSED NUCLEAR OPERATOR Unavailable Unavailable [place], N Adonis LICENSED NUCLEAR OPERATOR Unavailable Unavailable Selin, N Adonis LICENSED NUCLEAR OPERATOR Unavailable Unavailable Selin, N Adonis LICENSED NUCLEAR OPERATOR Unavailable Unavailable Selin, N Adonis LICENSED NUCLEAR OPERATOR Unavailable Unavailable [place], N Adonis LICENSED NUCLEAR OPERATOR Unavailable Unavailable Selin, N Adonis LICENSED NUCLEAR OPERATOR Unavailable Unavailable Selin, N Adonis LICENSED NUCLEAR OPERATOR Unavailable Unavailable [place], N Adonis LICENSED NUCLEAR OPERATOR Unavailable Unavailable Selin, N Adonis LICENSED NUCLEAR OPERATOR Unavailable Unavailable Selin, N Adonis LICENSED NUCLEAR OPERATOR Unavailable Unavailable [place], N Adonis LICENSED NUCLEAR OPERATOR Unavailable Unavailable Selin, N Adonis LICENSED NUCLEAR OPERATOR Unavailable Unavailable [place], N Adonis LICENSED NUCLEAR OPERATOR Unavailable Unavailable Selin, N Adonis LICENSED NUCLEAR OPERATOR Unavailable Unavailable James Joy MD Unavailable [...] Unavailable James Joy MD Unavailable Unavailable James oJy MD Unavailable Unavailable James Joy MD Unavailable [...] is protected by Article 27-F of the [facility] Public Health law. If you continue you may have access to information: Regarding HIV / AIDS; Provided by facilities licensed or operated by the [facility] Office of Mental Health; or Provided by the [facility] Office for People With Developmental Disabilities. If such information is present, then the following [facility] mandated warning applies: This information has been [...] law may result in a fine or half-way sentence or both. A general authorization for [...] [facility]) father Unknown Female Problem [facility] ([facility]) Unknown Female Problem [facility] ([facility]) Unknown Female Problem [facility] ([facility]) Unknown Female Problem [facility] ([facility]) Encounters Encounter Providers Location Date Indications Data Source(s ) Outpatient Attender: [facility] 11/30/2020 12:15:0 0 PM EST [facility] ([facility] Outpatient Attender: Adonis ARMENTASJMARITO 020 12:00:00 AM EST - 09/13/2020 01:21:30 PM EST [facility] Outpatient Attender: [facility] 08/26/2020 12:45:0 0 PM EDT [facility] ([facility] Outpatient Attender: [facility] 05/13/2020 02:30:0 0 PM EDT MED[facility] [...] PM EDT - 03/09/2020 03:27:04 PM EDT [facility] Outpatient Referrer: Alvaro Joy MD 02/26/2020 10:02:0 0 AM EDT [facility] Outpatient Referrer: Alvaro Joy MD 02/26/2020 10:00:0 0 AM EDT [facility] Outpatient Attender: Hesham Torres [place] Office 02/12/2020 01:45:0 0 PM EDT [facility] ([facility] [place] [facility] 01:00:00 PM EDT [facility] ([facility] Outpatient Attender: Rima Samir KATE [place] [facility] 01/30/2020 03:45:00 PM EDT [facility] ([facility] Outpatient Attender: Hesham Fish [place] Office 10/28/2019 10:30:0 0 AM EST MED[facility] [...] type / Coverage type Policy ID Covered libertarian ID Covered libertarian's relationship to rashid Policy Rashid Plan Information MEDICARE [id number] SP [id number] A AARP HEALTH CARE OPTIONS [id number] SP [id number] [facility] [id number] MEDICARE [id number] MEDICARE [id number] Yuly [id number] E22 [facility] [id number] Yuly [id number] MEDICARE C [id number] S [id number] E22 AARP O [id number] S [id number] Aarp Medigap Part B [id number] Self [id number] Medicare Medicare Primary [id number] Self [id number] MEDICARE [id number] Yuly [id number] A Aarp Medigap Part B [id number] Self [id number] Medicare Medicare Primary [id number] Self [id number] Aarp Medigap Part B [id number] Self [id number] Medicare Medicare Primary [id number] Self [id number] Aarp Medigap Part B [id number] Self [id number] Medicare Medicare Primary [id number] Self [id number] AARP HEALTH CARE OPTIONS [id number] SP [id number] MEDICARE [id number] SP [id number] A Aarp Medigap Part B [id number] Self [id number] [place] Primary [id number] Self [id number] MEDICARE C [id number] S [id number] A Aarp Medigap Part B [id number] Self [id number] Medicare Medicare Primary [id number] Self [id number] Aarp/ Health Care Options Medigap Part B [id number] Self [id number] Medicare - NGS Medicare Primary [id number] Self [id number] Aarp Healthcare Options Medigap Part B [id number] Self [id number] Medicare Dme Supplies Medigap Part B [id number] Self [id number] [place] Primary [id number] Self [id number] Aarp Healthcare Options Medigap Part B [id number] Self [id number] Medicare Dme Supplies Medigap Part B [id number] Self [id number] [place] Primary [id number] Self [id number] Aarp Healthcare Options Medigap Part B [id number] Self [id number] Medicare Dme Supplies Medigap Part B [id number] Self [id number] [place] Primary [id number] Self [id number] Aarp/ Health Care Options Medigap Part B [id number] Self [id number] Medicare [facility] Medicare Primary [id number] Self [id number] Aarp Medigap Part B [id number] Self [id number] Medicare Medicare Primary [id number] Self [id number] Aarp Medigap Part B [id number] Self [id number] Medicare Medicare Primary [id number] Self [id number] Aarp Medigap Part B [id number] Self [id number] Medicare Medicare Primary [id number] Self [id number] MEDICARE [id number] SP [id number] A Aarp Health Care Options Medigap Part B [id number] Self [id number] Medicare Natl Gov't Servi Medicare Primary [id number] Self [id number] MEDICARE [id number] SP [id number] MEDICARE C [id number] S [id number] Aarp/ Health Care Options Medigap Part B [id number] Self [id number] Medicare [facility] Medicare Primary [id number] Self [id number] Aarp Medigap Part B Self Medicare Medicare Primary Self Aarp Health Care Options Medigap Part B Self Medicare [place] Gov't Servi Medicare Primary Self Medicare Dme Supplies Medigap Part B Self Aarp Healthcare Options Medigap Part B Self [place] Primary Self AARP UHC Supplemental F [id number] SELF [id number] Medicare [id number] SELF [id number] A AARP HEALTH CARE OPTIONS-O/P [id number] 18 [id number] MEDICARE -O/P [id number] 18 [id number] AARP HEALTH CARE OPTIONS UNAVAILABLE UNAVAILABLE Problems, Conditions, and Diagnoses Code Display Name Description Problem Type Effective Dates Data Source(s) I10 Essential (primary) hypertension Essential (primary) h ypertension Diagnosis 09/13/2020 12:44:49 PM EST [facility] 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 Chronic combined systolic (congestive) a Diagnosis 09/13/2020 12:44:49 PM EST [facility] E78.00 Pure hypercholesterolemia, unspecified P ure hypercholesterolemia, unspecified Diagnosis 09/13/2020 12:44:49 PM EST [facility] I48.0 Paroxysmal atrial fibrillation Paroxysmal atrial fibri llation Diagnosis 09/13/2020 12:44:49 PM EST [facility] Surgeries/Procedures Procedure Description Date Indications Data Source(s) ECG ROUTINE ECG W/LEAST 12 LDS W/I&R POCT AMB EKG Routine 09/13/2020 1:04 PM EST Paroxysmal atrial fibrillation 09/13/2020 06:04:00 PM EST Pa roxysmal atrial fibrillation [facility] Paroxysmal atrial fibrillation DUP-SCAN LXTR ART/ARTL BPGS UNI/LMTD STUDY 09/02/2020 12:00:00 AM EDT [facility] ([facility]) DUP-SCAN LXTR ART/ARTL BPGS UNI/LMTD STUDY 09/02/2020 12:00:00 AM EDT [facility] ([facility]) Injection (SC)/(Im) 01/30/2020 12:00:00 AM EDT [facility] ([facility] Results ID Date Data Source [id number] 11/30/2020 02:11:00 PM EST [facility] Name Value Range Interpretation Code Description Data Trina rce(s) Supporting Document(s) Hemoglobin A1c/Hemoglobin.total in Blood 7.6 % 4.50-6.20 Above high normal [facility] ([facility] ID Date Data Source [id number] 11/30/2020 01:40:00 PM EST [facility] ([facility] Name Value Range Interpretation Code Description Data Trina rce(s) Supporting Document(s) Chol 141 mg/dL 0-200 [facility] NORMAL RANGES Age WBC [...] HCT IS 5% LESS SOURCE FOR DATA: [employer] 1800 OPERATION MANUAL( AUTOMATED BLOOD COUNTS AND [...] 2-19 YEARS EXCLUSIVE. Trig 152 mg/dL 35-200 [facility] ([facility] NORMAL RANGES [...] HCT IS 5% LESS SOURCE FOR DATA: [employer] 1800 OPERATION MANUAL( AUTOMATED BLOOD COUNTS AND [...] HCT IS 5% LESS SOURCE FOR DATA: [employer] 1800 OPERATION MANUAL( AUTOMATED BLOOD COUNTS AND [...] in Serum or Plasma 49 mg/dL 35-55 [facility] ([facility] NORMAL RANGES Age [...] HCT IS 5% LESS SOURCE FOR DATA: [employer] 1800 OPERATION MANUAL( AUTOMATED BLOOD COUNTS AND [...] 2-19 YEARS EXCLUSIVE. Cho/HDL Ratio 2.9 CALC [facility] ([facility] NORMAL RANGES Age WBC [...] HCT IS 5% LESS SOURCE FOR DATA: [employer] 1800 OPERATION MANUAL( AUTOMATED BLOOD COUNTS AND [...] 2-19 YEARS EXCLUSIVE. ID Date Data Source [id number] 11/30/2020 01:40:00 PM EST [facility] ([facility] Name [...] HCT IS 5% LESS SOURCE FOR DATA: [employer] 1800 OPERATION MANUAL( AUTOMATED BLOOD COUNTS AND [...] 29 mg/dL 8-23 Above high normal [facility] ([facility] NORMAL RANGES Age [...] HCT IS 5% LESS SOURCE FOR DATA: [employer] 1800 OPERATION MANUAL( AUTOMATED BLOOD COUNTS AND [...] 2-19 YEARS EXCLUSIVE. BUN/Creatinine Ratio 44.2 CALC [facility] ([facility] NORMAL RANGES Age [...] HCT IS 5% LESS SOURCE FOR DATA: [employer] 1800 OPERATION MANUAL( AUTOMATED BLOOD COUNTS AND [...] 2-19 YEARS EXCLUSIVE. Na 140 mmol/L 136-145 [facility] NORMAL RANGES Age WBC RBC [...] HCT IS 5% LESS SOURCE FOR DATA: [employer] 1800 OPERATION MANUAL( AUTOMATED BLOOD COUNTS AND [...] 2-19 YEARS EXCLUSIVE. K 4.3 mmol/L 3.5-5.1 [facility] ([facility] NORMAL RANGES [...] HCT IS 5% LESS SOURCE FOR DATA: [employer] 1800 OPERATION MANUAL( AUTOMATED BLOOD COUNTS AND [...] 2-19 YEARS EXCLUSIVE. CA 9.0 mg/dL 8.6-10.2 [facility] ([facility] NORMAL RANGES [...] HCT IS 5% LESS SOURCE FOR DATA: [employer] 1800 OPERATION MANUAL( AUTOMATED BLOOD COUNTS AND [...] Co2 31.4 mmol/L 22.0-29.0 Above high normal [facility] ([facility] NORMAL RANGES Age WBC [...] HCT IS 5% LESS SOURCE FOR DATA: [employer]YN 1800 OPERATION MANUAL( AUTOMATED BLOOD COUNTS [...] HCT IS 5% LESS SOURCE FOR DATA: [employer] 1800 OPERATION MANUAL( AUTOMATED BLOOD COUNTS AND [...] HCT IS 5% LESS SOURCE FOR DATA: [employer] 1800 OPERATION MANUAL( AUTOMATED BLOOD COUNTS AND [...] HCT IS 5% LESS SOURCE FOR DATA: [employer] 1800 OPERATION MANUAL( AUTOMATED BLOOD COUNTS AND [...] 2-19 YEARS EXCLUSIVE. Alp 89.8 U/L 40-129 [facility] ([facility] NORMAL RANGES [...] HCT IS 5% LESS SOURCE FOR DATA: [employer] 1800 OPERATION MANUAL( AUTOMATED BLOOD COUNTS [...] HCT IS 5% LESS SOURCE FOR DATA: [employer] 1800 OPERATION MANUAL( AUTOMATED BLOOD COUNTS AND [...] YEARS EXCLUSIVE. Osmolality-Calculated 285.4 CALC [facility] ([facility] NORMAL RANGES Age WBC [...] HCT IS 5% LESS SOURCE FOR DATA: [employer] 1800 OPERATION MANUAL( AUTOMATED BLOOD COUNTS AND [...] YEARS EXCLUSIVE. Ast (Sgot) 11 U/L 0-40 [facility] NORMAL RANGES Age WBC RBC [...] HCT IS 5% LESS SOURCE FOR DATA: [employer] 1800 OPERATION MANUAL( AUTOMATED BLOOD COUNTS [...] HCT IS 5% LESS SOURCE FOR DATA: [employer] 1800 OPERATION MANUAL( AUTOMATED BLOOD COUNTS AND [...] YEARS EXCLUSIVE. eGFR 112 # [facility] ( [facility] NORMAL RANGES Age WBC [...] HCT IS 5% LESS SOURCE FOR DATA: [employer] 1800 OPERATION MANUAL( AUTOMATED BLOOD COUNTS AND [...] 2-19 YEARS EXCLUSIVE. Anion Gap 13 mmol/L [facility] ([facility] NORMAL RANGES [...] HCT IS 5% LESS SOURCE FOR DATA: [employer] 1800 OPERATION MANUAL( AUTOMATED BLOOD COUNTS AND [...] INDIVIDUALA AGED 2-19 YEARS EXCLUSIVE. eGFR Non-Afr. Turkish 97 # [facility] ([facility] [...] HCT IS 5% LESS SOURCE FOR DATA: [employer] 1800 OPERATION MANUAL( AUTOMATED BLOOD COUNTS AND [...] 2-19 YEARS EXCLUSIVE. ID Date Data Source [id number] 11/30/2020 01:40:00 PM EST [facility] ([facility] Name Value Range Interpretation Code Description Data Trina rce(s) Supporting Document(s) Creatine kinase [Enzymatic activity/volume] in Serum or Plasma 57 U /L 39-308 [facility] ([facility] NORMAL RANGES Age WBC [...] HCT IS 5% LESS SOURCE FOR DATA: [employer] 1800 OPERATION MANUAL( AUTOMATED BLOOD COUNTS [...] 2-19 YEARS EXCLUSIVE. ID Date Data Source [id number] 11/30/2020 01:40:00 PM EST [facility] ([facility] Name Value Range Interpretation Code Description Data Trina rce(s) Supporting Document(s) WBC 9.4 10E3/uL 4.1-10.9 [facility] ([facility] NORMAL RANGES Age WBC [...] HCT IS 5% LESS SOURCE FOR DATA: [employer] 1800 OPERATION MANUAL( AUTOMATED BLOOD COUNTS AND [...] YEARS EXCLUSIVE. RBC 4.69 10E6/uL 4.20-6.30 [facility] NORMAL RANGES Age WBC RBC [...] HCT IS 5% LESS SOURCE FOR DATA: [employer] 1800 OPERATION MANUAL( AUTOMATED BLOOD COUNTS AND [...] HCT IS 5% LESS SOURCE FOR DATA: [employer] 1800 OPERATION MANUAL( AUTOMATED BLOOD COUNTS AND [...] HCT IS 5% LESS SOURCE FOR DATA: [employer] 1800 OPERATION MANUAL( AUTOMATED BLOOD COUNTS AND [...] 2-19 YEARS EXCLUSIVE. MCV 82.9 fL 80.0-97.0 [facility] NORMAL RANGES Age WBC [...] HCT IS 5% LESS SOURCE FOR DATA: [employer] 1800 OPERATION MANUAL( AUTOMATED BLOOD COUNTS AND [...] HCT IS 5% LESS SOURCE FOR DATA: [employer] 1800 OPERATION MANUAL( AUTOMATED BLOOD COUNTS AND [...] HCT IS 5% LESS SOURCE FOR DATA: [employer] 1800 OPERATION MANUAL( AUTOMATED BLOOD COUNTS AND [...] 2-19 YEARS EXCLUSIVE. PLT 323 10E3/uL 140-440 [facility] ([facility] NORMAL RANGES Age WBC [...] HCT IS 5% LESS SOURCE FOR DATA: [employer] 1800 OPERATION MANUAL( AUTOMATED BLOOD COUNTS AND [...] HCT IS 5% LESS SOURCE FOR DATA: [employer] 1800 OPERATION MANUAL( AUTOMATED BLOOD COUNTS AND [...] HCT IS 5% LESS SOURCE FOR DATA: [employer] 1800 OPERATION MANUAL( AUTOMATED BLOOD COUNTS AND [...] YEARS EXCLUSIVE. Lym# 1.6 10E3/uL 0.6-4.1 [facility] ([facility] NORMAL RANGES Age WBC [...] HCT IS 5% LESS SOURCE FOR DATA: [employer] 1800 OPERATION MANUAL( AUTOMATED BLOOD COUNTS [...] HCT IS 5% LESS SOURCE FOR DATA: [employer] 1800 OPERATION MANUAL( AUTOMATED BLOOD COUNTS AND [...] HCT IS 5% LESS SOURCE FOR DATA: [employer] 1800 OPERATION MANUAL( AUTOMATED BLOOD COUNTS AND [...] 2-19 YEARS EXCLUSIVE. Neut# 6.8 % 2.0-7.8 [facility] ([facility] NORMAL RANGES [...] HCT IS 5% LESS SOURCE FOR DATA: [employer] 1800 OPERATION MANUAL( AUTOMATED BLOOD COUNTS AND [...] 2-19 YEARS EXCLUSIVE. MXD# 1.0 10E3/uL 0.0-1.8 [facility] ([facility] NORMAL RANGES Age WBC [...] HCT IS 5% LESS SOURCE FOR DATA: [employer] 1800 OPERATION MANUAL( AUTOMATED BLOOD COUNTS AND [...] HCT IS 5% LESS SOURCE FOR DATA: [employer] 1800 OPERATION MANUAL( AUTOMATED BLOOD COUNTS AND [...] 2-19 YEARS EXCLUSIVE. ID Date Data Source [id number] 11/30/2020 01:40:00 PM EST [facility] ([facility] Name Value Range Interpretation Code Description Data Trina rce(s) Supporting Document(s) Color Urine Laboratory test result M [facility] ([facility] Appearance of Urine Laboratory test result [facility] ([facility] Specific [place] Laboratory test result 1.00-1.03 [facility] ([facility] ID Date Data Source [id number] 08/26/2020 03:47:00 PM EDT [facility] ([facility] Name Value Range Interpretation Code Description Data Trina rce(s) Supporting Document(s) Color Urine Laboratory test result M [facility] ([facility] Specific [place] 1.025 1.00-1.03 [facility] ([facility] Appearance of Urine Laboratory test result [facility] ([facility] PH Urine 7.0 5.0-8.0 [facility] Glucose Urine Laboratory test result [facility] ([facility] Bilirubin.total [Presence] in Urine by Test strip Laboratory test res ult [facility] ([facility] Ketones Laboratory test result [facility] ([facility] Blood Urine Laboratory test result M [facility] ([facility] Nitrite Laboratory test result [facility] ([facility] Urobilinogen 0.2 EU/dl 0.2-1.0 [facility] ([facility] Protein Urine Laboratory test result [facility] ([facility] Leukocytes Laboratory test result ME DENT ([facility] ID Date Data Source [id number] 08/26/2020 03:47:00 PM EDT [facility] ([facility] Name Value Range Interpretation Code Description Data Trina rce(s) Supporting Document(s) Hemoglobin A1c/Hemoglobin.total in Blood 7.2 % 4.50-6.20 Above high normal [facility] ([facility] ID Date Data Source [id number] 08/26/2020 01:16:00 PM EDT [facility] ([facility] Name Value Range Interpretation Code Description Data Trina rce(s) Supporting Document(s) Chol 141 mg/dL 0-200 [facility] NORMAL RANGES Age [...] HCT IS 5% LESS SOURCE FOR DATA: [employer] 1800 OPERATION MANUAL( AUTOMATED BLOOD COUNTS AND [...] 2-19 YEARS EXCLUSIVE. Trig 163 mg/dL 35-200 [facility] ([facility] NORMAL RANGES [...] HCT IS 5% LESS SOURCE FOR DATA: [employer] 1800 OPERATION MANUAL( AUTOMATED BLOOD COUNTS AND [...] HCT IS 5% LESS SOURCE FOR DATA: [employer] 1800 OPERATION MANUAL( AUTOMATED BLOOD COUNTS AND [...] 2-19 YEARS EXCLUSIVE. Cho/HDL Ratio 3.2 CALC [facility] ([facility] NORMAL RANGES Age [...] HCT IS 5% LESS SOURCE FOR DATA: [employer] 1800 OPERATION MANUAL( AUTOMATED BLOOD COUNTS AND [...] LDL_C 65 Calc 75-129 Below low normal [facility] ( [facility] NORMAL RANGES [...] HCT IS 5% LESS SOURCE FOR DATA: [employer]YN 1800 OPERATION MANUAL( AUTOMATED BLOOD COUNTS [...] 2-19 YEARS EXCLUSIVE. ID Date Data Source [id number] 08/26/2020 01:16:00 PM EDT [facility] ([facility] [...] HCT IS 5% LESS SOURCE FOR DATA: [employer] 1800 OPERATION MANUAL( AUTOMATED BLOOD COUNTS AND [...] Glu 144 mg/dL 70-110 Above high normal [facility] ([facility] NORMAL RANGES Age WBC [...] HCT IS 5% LESS SOURCE FOR DATA: [employer] 1800 OPERATION MANUAL( AUTOMATED BLOOD COUNTS AND [...] 2-19 YEARS EXCLUSIVE. BUN/Creatinine Ratio 36.1 CALC [facility] ([facility] NORMAL RANGES Age [...] HCT IS 5% LESS SOURCE FOR DATA: [employer] 1800 OPERATION MANUAL( AUTOMATED BLOOD COUNTS AND [...] HCT IS 5% LESS SOURCE FOR DATA: [employer] 1800 OPERATION MANUAL( AUTOMATED BLOOD COUNTS AND [...] YEARS EXCLUSIVE. Na 141 mmol/L 136-145 [facility] ([facility] NORMAL RANGES Age WBC RBC [...] HCT IS 5% LESS SOURCE FOR DATA: [employer] 1800 OPERATION MANUAL( AUTOMATED BLOOD COUNTS AND [...] 2-19 YEARS EXCLUSIVE. CL 99.1 mmol/L 98.0-107.0 [facility] ([facility] NORMAL RANGES [...] HCT IS 5% LESS SOURCE FOR DATA: [employer] 1800 OPERATION MANUAL( AUTOMATED BLOOD COUNTS AND [...] HCT IS 5% LESS SOURCE FOR DATA: [employer] 1800 OPERATION MANUAL( AUTOMATED BLOOD COUNTS AND [...] 2-19 YEARS EXCLUSIVE. CA 9.1 mg/dL 8.6-10.2 [facility] ([facility] NORMAL RANGES Age WBC [...] HCT IS 5% LESS SOURCE FOR DATA: [employer] 1800 OPERATION MANUAL( AUTOMATED BLOOD COUNTS AND [...] HCT IS 5% LESS SOURCE FOR DATA: [employer] 1800 OPERATION MANUAL( AUTOMATED BLOOD COUNTS AND [...] HCT IS 5% LESS SOURCE FOR DATA: [employer] 1800 OPERATION MANUAL( AUTOMATED BLOOD COUNTS AND [...] HCT IS 5% LESS SOURCE FOR DATA: [employer] 1800 OPERATION MANUAL( AUTOMATED BLOOD COUNTS AND [...] HCT IS 5% LESS SOURCE FOR DATA: [employer] 1800 OPERATION MANUAL( AUTOMATED BLOOD COUNTS AND [...] HCT IS 5% LESS SOURCE FOR DATA: [employer] 1800 OPERATION MANUAL( AUTOMATED BLOOD COUNTS [...] YEARS EXCLUSIVE. Alt (SGPT) 9 U/L 0-41 [facility] NORMAL RANGES Age WBC RBC [...] HCT IS 5% LESS SOURCE FOR DATA: [employer] 1800 OPERATION MANUAL( AUTOMATED BLOOD COUNTS AND [...] 2-19 YEARS EXCLUSIVE. Tbili 0.22 mg/dL 0.0-1.2 [facility] ([facility] NORMAL RANGES [...] HCT IS 5% LESS SOURCE FOR DATA: [employer] 1800 OPERATION MANUAL( AUTOMATED BLOOD COUNTS AND [...] HCT IS 5% LESS SOURCE FOR DATA: [employer] 1800 OPERATION MANUAL( AUTOMATED BLOOD COUNTS AND [...] YEARS EXCLUSIVE. Ast (Sgot) 11 U/L 0-40 [facility] [facility] NORMAL RANGES Age WBC RBC [...] HCT IS 5% LESS SOURCE FOR DATA: [employer] 1800 OPERATION MANUAL( AUTOMATED BLOOD COUNTS AND [...] HCT IS 5% LESS SOURCE FOR DATA: [employer] 1800 OPERATION MANUAL( AUTOMATED BLOOD COUNTS AND [...] [facility] CKD-EPI eGFR Non-Afr. Turkish 92 # [facility] ([facility] CKD-EPI ID Date Data Source [id number] 08/26/2020 01:16:00 PM EDT MED[facility] ([facility] Name Value Range Interpretation Code Description Data Trina rce(s) Supporting Document(s) Creatine kinase [Enzymatic activity/volume] in Serum or Plasma 70 U /L 39-308 [facility] ([employer] [facility] NORMAL RANGES Age WBC [...] HCT IS 5% LESS SOURCE FOR DATA: [employer] 1800 OPERATION MANUAL( AUTOMATED BLOOD COUNTS AND [...] 2-19 YEARS EXCLUSIVE. ID Date Data Source [id number] 08/26/2020 01:16:00 PM EDT MED[facility] ([facility] Name Value Range Interpretation Code Description Data Trina rce(s) Supporting Document(s) WBC 8.6 10E3/uL 4.1-10.9 [facility] ([facility] NORMAL RANGES Age WBC [...] HCT IS 5% LESS SOURCE FOR DATA: [employer] 1800 OPERATION MANUAL( AUTOMATED BLOOD COUNTS AND [...] 2-19 YEARS EXCLUSIVE. RBC 4.49 10E6/uL 4.20-6.30 [employer] ([facility] NORMAL RANGES Age [...] HCT IS 5% LESS SOURCE FOR DATA: [employer] 1800 OPERATION MANUAL( AUTOMATED BLOOD COUNTS AND [...] HCT IS 5% LESS SOURCE FOR DATA: [employer] 1800 OPERATION MANUAL( AUTOMATED BLOOD COUNTS AND [...] HGB 11.7 g/dL 12.0-18.0 Below low normal [facility] ( [facility] NORMAL RANGES Age WBC [...] HCT IS 5% LESS SOURCE FOR DATA: [employer] 1800 OPERATION MANUAL( AUTOMATED BLOOD COUNTS AND [...] 2-19 YEARS EXCLUSIVE. MCV 86.2 fL 80.0-97.0 [facility] ([facility] NORMAL RANGES [...] HCT IS 5% LESS SOURCE FOR DATA: [employer] 1800 OPERATION MANUAL( AUTOMATED BLOOD COUNTS AND [...] HCT IS 5% LESS SOURCE FOR DATA: [employer] 1800 OPERATION MANUAL( AUTOMATED BLOOD COUNTS AND [...] 2-19 YEARS EXCLUSIVE. PLT 303 10E3/uL 140-440 [facility] ([facility] NORMAL RANGES Age WBC [...] HCT IS 5% LESS SOURCE FOR DATA: [employer] 1800 OPERATION MANUAL( AUTOMATED BLOOD COUNTS AND [...] MCHC 30.2 g/dL 31.0-36.0 Below low normal [facility] ( [facility] NORMAL RANGES [...] HCT IS 5% LESS SOURCE FOR DATA: [employer] 1800 OPERATION MANUAL( AUTOMATED BLOOD COUNTS AND [...] HCT IS 5% LESS SOURCE FOR DATA: [employer] 1800 OPERATION MANUAL( AUTOMATED BLOOD COUNTS AND [...] 2-19 YEARS EXCLUSIVE. Lym% 17.2 % 10.0-58.5 [facility] ([facility] NORMAL RANGES [...] HCT IS 5% LESS SOURCE FOR DATA: [employer] 1800 OPERATION MANUAL( AUTOMATED BLOOD COUNTS AND [...] HCT IS 5% LESS SOURCE FOR DATA: [employer] 1800 OPERATION MANUAL( AUTOMATED BLOOD COUNTS AND [...] HCT IS 5% LESS SOURCE FOR DATA: [employer] 1800 OPERATION MANUAL( AUTOMATED BLOOD COUNTS AND [...] 2-19 YEARS EXCLUSIVE. Lym# 1.5 10E3/uL 0.6-4.1 [facility] ([facility] NORMAL RANGES Age WBC [...] 2-19 YEARS EXCLUSIVE. Neut# 6.2 % 2.0-7.8 [facility] ([facility] NORMAL RANGES [...] HCT IS 5% LESS SOURCE FOR DATA: [employer] 1800 OPERATION MANUAL( AUTOMATED BLOOD COUNTS AND [...] 2-19 YEARS EXCLUSIVE. MXD# 0.9 10E3/uL 0.0-1.8 [facility] ([facility] NORMAL RANGES Age WBC [...] HCT IS 5% LESS SOURCE FOR DATA: [employer] 1800 OPERATION MANUAL( AUTOMATED BLOOD COUNTS AND [...] 2-19 YEARS EXCLUSIVE. MPV 10.6 fL 9.0-13.0 [facility] ([facility] NORMAL RANGES [...] 2-19 YEARS EXCLUSIVE. ID Date Data Source [id number] 05/13/2020 02:58:00 PM EDT MED[facility] ([employer] [facility] Name Value Range Interpretation Code Description Data Trina e(s) Supporting Document(s) Hemoglobin A1c/Hemoglobin.total in Blood 7.5 % 4.50-6.20 Above high normal [facility] ([facility] ID Date Data Source [id number] 05/13/2020 02:57:00 PM EDT [facility] ([employer] [facility] Name Value Range Interpretation [...] m or Plasma 10 IU/L 0-44 [facility] ([facility] Blanca [facility]domo [facility] Aspartate aminotransferase [Enzymatic activity/volume] in Serum or Plasma 14 IU/L 0-40 [facility] ([facility] Susana [facility]right [facility] ID Date Data Source [id number] 05/13/2020 02:57:00 PM EDT MEDENT ([facility] Name Value Range Interpretation Code Description Data Trina rce(s) Supporting Document(s) Chol 158 mg/dL 0-200 [facility] ([facility] CLASSIFICATION CHOLESTEROL FO [...] YEARS EXCLUSIVE. Trig 117 mg/dL 35-200 [facility] ([facility] CLASSIFICATION CHOLESTEROL FO [...] Serum or Plasma 46 mg/dL 35-55 [facility] ([facility] CLASSIFICATION CHOLESTEROL FO R [...] YEARS EXCLUSIVE. Cho/HDL Ratio 3.4 Calc [facility] ([facility] CLASSIFICATION CHOLESTEROL FO R [...] YEARS EXCLUSIVE. LDL_C 88 Calc 75-129 [facility] ([facility] CLASSIFICATION CHOLESTEROL FO R [...] 2-19 YEARS EXCLUSIVE. ID Date Data Source [id number] 04/06/2020 01:18:00 PM EDT MED[facility] ([facility], ) Name Value Range Interpretation Code Description Data Trina rce(s) Supporting Document(s) FVC-Pred 3.90 L MEDENT ([facility], ) PDFReport Laboratory test result MED[facility] ([facility]) FVC-Pre 2.12 L [facility] ([facility]) FVC-%Pred-Pre 54 L MED[facility] ([facility], ) FVC-LLN 3.02 L [facility] ([facility], ) Fev1-Pred 2.81 L [facility] ([facility], ) Fev1-Pre 1.17 L [facility] ([facility], ) Fev1-LLN 2.07 L [facility] ([facility]) Fev1-%Pred-Pre 41 L MED[facility] ([facility], ) Fev6-%Pred-Pre 58 L [facility] ([facility], ) Fev6-Pre 2.12 L [facility] ([facility], ) Fev6-Pred 3.65 L [facility] ([facility], ) Fev6-LLN 2.79 L [facility] ([facility]) Fjq5deb-Wagb 73 % [facility] ([facility]) Gae2hhn-JWY 63 % [facility] ([facility], ) Cqr2mof-Vyx 55 % [facility] ([facility], ) Gqt2ced-%Pred-Pre 76 % [facility] ([facility]) Lgn8tvv-Mgo 100 % [facility] ([facility]) Mcj1tdw-Zaxs 94 % [facility] ([facility]) FEFMax-Pre 4.22 L/E/sec MED[facility] ([facility]) Cpr4pjm-%Pred-Pre 106 % [facility] ([facility]) FEFMax-Pred 7.38 L/E/sec [facility] ([facility], ) FEFMax-%Pred-Pre 57 L/E/sec [facility] ([facility]) FEFMax-LLN 5.19 L/E/sec [facility] ([facility]) [id number] 2.04 L/E/sec [facility] ([facility]) Qyv7942-Chw 0.53 L/E/sec [facility] ([facility]) Tnp8034-%Pred-Pre 25 L/E/sec [facility] ([facility]) ExpTime-Pre 5.62 sec [facility] ([facility], ) Ffg4792-NAH 0.53 L/E/sec [facility] ([facility], ) Fwk0gmp1-Wio 55 % [facility] ([facility]) Slk6exs8-Rplv 77 % [facility] ([facility], ) Xvm6tcs1-%Pred-Pre 71 % [facility] ([facility]) Klz4hmz9-RXC 68 % [facility] ([facility]) ID Date Data Source [id number] 04/01/2020 12:00:00 AM EDT [facility] Alvaro Joy MD Patient Name: CASSIA LUNA [id number] [facility] Date of : 1945[place] Date of Exam: 04/01/2020JASVIR Avelar [id number]#: Fax: [phone] EXAM: LOW DOSE CT LUNG [...] chest. Lung Rads Category 1.Accredited by the [employer] in [place].DAVID Purvis/Sherif mena for referring CASSIA LUNA to our office. Electronically Signed - JUAN DIEGO VANEGAS DO 04/01/20 16:54 Name Value Range Interpretation Code Description Data Trina rce(s) Supporting Document(s) ID Date Data Source [id number] 02/12/2020 02:16:00 PM EDT [facility] ([facility] Name Value Range Interpretation Code Description Data Trina rce(s) Supporting Document(s) Hemoglobin A1c/Hemoglobin.total in Blood 7.9 % 4.50-6.20 Above high normal [facility] ([employer] [facility] ID Date Data Source [id number] 02/12/2020 02:15:00 PM EDT [facility] ([facility] Name Value Range Interpretation Code Description Data Trina rce(s) Supporting Document(s) Creatine kinase [Enzymatic activity/volume] in Serum or Plasma 79 U /L 39-308 [facility] ([employer] [facility] CLASSIFICATION CHOLESTEROL FO R [...] HCT IS 5% LESS SOURCE FOR DATA: [employer] 1800 OPERATION MANUAL( AUTOMATED BLOOD COUNTS AND DIFF.) APPENDIX B-3 ID Date Data Source [id number] 02/12/2020 02:15:00 PM EDT MED[facility] ([facility] Name [...] HCT IS 5% LESS SOURCE FOR DATA: [employer] 1800 OPERATION MANUAL( AUTOMATED BLOOD COUNTS [...] HCT IS 5% LESS SOURCE FOR DATA: [employer] 1800 OPERATION MANUAL( AUTOMATED BLOOD COUNTS AND DIFF.) APPENDIX B-3 Trig 124 mg/dL 35-200 [facility] ([facility] CLASSIFICATION CHOLESTEROL [...] HCT IS 5% LESS SOURCE FOR DATA: [employer] 1800 OPERATION MANUAL( AUTOMATED BLOOD COUNTS AND DIFF.) APPENDIX B-3 LDL_C 97 Calc 75-129 [facility] ([facility] CLASSIFICATION CHOLESTEROL [...] HCT IS 5% LESS SOURCE FOR DATA: [employer] 1800 OPERATION MANUAL( AUTOMATED BLOOD COUNTS AND DIFF.) APPENDIX B-3 Cho/HDL Ratio 3.3 CALC [facility] ([facility] CLASSIFICATION CHOLESTEROL FO R ADULTS CHILDREN/ADOLESCENTS* [...] HCT IS 5% LESS SOURCE FOR DATA: [employer] 1800 OPERATION MANUAL( AUTOMATED BLOOD COUNTS AND DIFF.) APPENDIX B-3 ID Date Data Source [id number] 02/12/2020 02:15:00 PM EDT MED[facility] ([facility] Name Value Range Interpretation [...] APPENDIX B-3 BUN/Creatinine Ratio 31.2 CALC [facility] ([facility] CLASSIFICATION CHOLESTEROL FO [...] HCT IS 5% LESS SOURCE FOR DATA: [employer] 1800 OPERATION MANUAL( AUTOMATED BLOOD COUNTS AND DIFF.) APPENDIX B-3 Glu 147 mg/dL 70-110 Above high normal [facility] ([facility] CLASSIFICATION CHOLESTEROL FO [...] HCT IS 5% LESS SOURCE FOR DATA: [employer] 1800 OPERATION MANUAL( AUTOMATED BLOOD COUNTS AND DIFF.) APPENDIX B-3 BUN 22 mg/dL 8-23 [facility] ([facility] CLASSIFICATION CHOLESTEROL [...] CL 96.3 mmol/L 98.0-107.0 Below low normal [facility] ([facility] CLASSIFICATION CHOLESTEROL FO [...] HCT IS 5% LESS SOURCE FOR DATA: [employer] 1800 OPERATION MANUAL( AUTOMATED BLOOD COUNTS AND DIFF.) APPENDIX B-3 Na 138 mmol/L 136-145 [facility] ([facility] CLASSIFICATION CHOLESTEROL FO R ADULTS [...] B-3 K 4.3 mmol/L 3.5-5.1 [facility] ([facility] CLASSIFICATION CHOLESTEROL FO R ADULTS [...] DIFF.) APPENDIX B-3 CA 9.2 mg/dL 8.6-10.2 [facility] ([facility] CLASSIFICATION CHOLESTEROL FO [...] HCT IS 5% LESS SOURCE FOR DATA: [employer] 1800 OPERATION MANUAL( AUTOMATED BLOOD COUNTS AND [...] HCT IS 5% LESS SOURCE FOR DATA: [employer] 1800 OPERATION MANUAL( AUTOMATED BLOOD COUNTS AND [...] HCT IS 5% LESS SOURCE FOR DATA: [employer] 1800 OPERATION MANUAL( AUTOMATED BLOOD COUNTS AND DIFF.) APPENDIX B-3 Co2 28.7 mmol/L 22.0-29.0 [facility] ([facility] CLASSIFICATION CHOLESTEROL FO R [...] DIFF.) APPENDIX B-3 Alp 76.4 U/L 40-129 [facility] CLASSIFICATION CHOLESTEROL FO [...] IS 5% LESS SOURCE FOR DATA: [employer] 1800 OPERATION MANUAL( AUTOMATED BLOOD COUNTS AND [...] HCT IS 5% LESS SOURCE FOR DATA: [employer] 1800 OPERATION MANUAL( AUTOMATED BLOOD COUNTS AND DIFF.) APPENDIX B-3 Globulin 2.3 CALC [facility] CLASSIFICATION CHOLESTEROL FO [...] HCT IS 5% LESS SOURCE FOR DATA: [employer] 1800 OPERATION MANUAL( AUTOMATED BLOOD COUNTS AND [...] IS 5% LESS SOURCE FOR DATA: [employer] 1800 OPERATION MANUAL( AUTOMATED BLOOD COUNTS AND DIFF.) APPENDIX B-3 Tbili 0.22 mg/dL 0.0-1.2 [facility] ([facility] CLASSIFICATION CHOLESTEROL FO R ADULTS [...] HCT IS 5% LESS SOURCE FOR DATA: [employer] 1800 OPERATION MANUAL( AUTOMATED BLOOD COUNTS AND DIFF.) APPENDIX B-3 Alt (SGPT) 12 U/L 0-41 [facility] ([facility] CLASSIFICATION CHOLESTEROL FO R ADULTS [...] APPENDIX B-3 Ast (Sgot) 13 U/L 0-40 [facility] ([facility] CLASSIFICATION CHOLESTEROL FO R ADULTS [...] COUNTS AND DIFF.) APPENDIX B-3 eGFR Non-Afr. Turkish 92 # [facility] ([facility] [...] HCT IS 5% LESS SOURCE FOR DATA: [employer] 1800 OPERATION MANUAL( AUTOMATED BLOOD COUNTS AND DIFF.) APPENDIX B-3 Anion Gap 17 mmol/L [facility] ([facility] CLASSIFICATION CHOLESTEROL FO R [...] HCT IS 5% LESS SOURCE FOR DATA: [employer] 1800 OPERATION MANUAL( AUTOMATED BLOOD COUNTS AND DIFF.) APPENDIX B-3 ID Date Data Source [id number] 02/12/2020 02:15:00 PM EDT [facility] ([facility] Name Value Range Interpretation Code Description Data Trina rce(s) Supporting Document(s) HGB 12.2 g/dL 12.0-18.0 [facility] ([facility] CLASSIFICATION CHOLESTEROL [...] HCT IS 5% LESS SOURCE FOR DATA: [employer] 1800 OPERATION MANUAL( AUTOMATED BLOOD COUNTS AND DIFF.) APPENDIX B-3 RBC 4.74 10E6/uL 4.20-6.30 [facility] ([facility] CLASSIFICATION CHOLESTEROL [...] HCT IS 5% LESS SOURCE FOR DATA: [employer] 1800 OPERATION MANUAL( AUTOMATED BLOOD COUNTS AND DIFF.) APPENDIX B-3 WBC 9.6 10E3/uL 4.1-10.9 [facility] ([facility] CLASSIFICATION CHOLESTEROL FO R [...] HCT IS 5% LESS SOURCE FOR DATA: [employer] 1800 OPERATION MANUAL( AUTOMATED BLOOD COUNTS AND DIFF.) APPENDIX B-3 MCH 25.7 pg 26.0-32.0 Below low normal [facility] ( [facility] CLASSIFICATION CHOLESTEROL [...] HCT IS 5% LESS SOURCE FOR DATA: [employer] 1800 OPERATION MANUAL( AUTOMATED BLOOD COUNTS AND DIFF.) APPENDIX B-3 MCHC 29.7 g/dL 31.0-36.0 Below low normal [facility] ( [facility] CLASSIFICATION CHOLESTEROL [...] DIFF.) APPENDIX B-3 MCV 86.7 fL 80.0-97.0 [facility] ([facility] CLASSIFICATION CHOLESTEROL [...] HCT IS 5% LESS SOURCE FOR DATA: [employer] 1800 OPERATION MANUAL( AUTOMATED BLOOD COUNTS [...] HCT IS 5% LESS SOURCE FOR DATA: [employer] 1800 OPERATION MANUAL( AUTOMATED BLOOD COUNTS AND DIFF.) APPENDIX B-3 PLT 257 10E3/uL 140-440 [facility] ([facility] CLASSIFICATION CHOLESTEROL FO R [...] DIFF.) APPENDIX B-3 Lym% 17.7 % 10.0-58.5 [facility] ([facility] CLASSIFICATION CHOLESTEROL [...] HCT IS 5% LESS SOURCE FOR DATA: [employer] 1800 OPERATION MANUAL( AUTOMATED BLOOD COUNTS AND DIFF.) APPENDIX B-3 RDW-CV 14.6 % 11.5-14.5 Above high normal [facility] ([facility] CLASSIFICATION CHOLESTEROL FO [...] HCT IS 5% LESS SOURCE FOR DATA: [employer] 1800 OPERATION MANUAL( AUTOMATED BLOOD COUNTS AND [...] HCT IS 5% LESS SOURCE FOR DATA: [employer] 1800 OPERATION MANUAL( AUTOMATED BLOOD COUNTS AND DIFF.) APPENDIX B-3 MXD% 8.0 % 0.1-24.0 [facility] ([facility] CLASSIFICATION CHOLESTEROL FO [...] HCT IS 5% LESS SOURCE FOR DATA: [employer] 1800 OPERATION MANUAL( AUTOMATED BLOOD COUNTS AND DIFF.) APPENDIX B-3 Lym# 1.7 10E3/uL 0.6-4.1 [facility] ([facility] CLASSIFICATION CHOLESTEROL FO R [...] HCT IS 5% LESS SOURCE FOR DATA: [employer] 1800 OPERATION MANUAL( AUTOMATED BLOOD COUNTS AND DIFF.) APPENDIX B-3 MXD# 0.8 10E3/uL 0.0-1.8 [facility] ([facility] CLASSIFICATION CHOLESTEROL FO R [...] HCT IS 5% LESS SOURCE FOR DATA: [employer] 1800 OPERATION MANUAL( AUTOMATED BLOOD COUNTS AND DIFF.) APPENDIX B-3 Neut# 7.1 % 2.0-7.8 [facility] ([facility] CLASSIFICATION CHOLESTEROL FO [...] HCT IS 5% LESS SOURCE FOR DATA: [employer] 1800 OPERATION MANUAL( AUTOMATED BLOOD COUNTS AND DIFF.) APPENDIX B-3 ID Date Data Source [id number] 10/28/2019 01:39:00 PM EST [facility] ([facility] Name Value Range Interpretation Code Description Data Trina rce(s) Supporting Document(s) Creatine kinase [Enzymatic activity/volume] in Serum or Plasma 67 U /L 39-308 [facility] ([facility] CLASSIFICATION CHOLESTEROL FO [...] HCT IS 5% LESS SOURCE FOR DATA: [employer] 1800 OPERATION MANUAL( AUTOMATED BLOOD COUNTS AND DIFF.) APPENDIX B-3 ID Date Data Source [id number] 10/28/2019 01:39:00 PM EST [facility] ([facility] Name Value Range Interpretation [...] HCT IS 5% LESS SOURCE FOR DATA: [employer] 1800 OPERATION MANUAL( AUTOMATED BLOOD COUNTS AND DIFF.) APPENDIX B-3 Prostate specific Ag [Mass/volume] in Serum or Plasma 47 mg/dL 35-5 5 [facility] ([facility] CLASSIFICATION CHOLESTEROL FO [...] HCT IS 5% LESS SOURCE FOR DATA: [employer] 1800 OPERATION MANUAL( AUTOMATED BLOOD COUNTS AND DIFF.) APPENDIX B-3 LDL_C 83 Calc 75-129 [facility] CLASSIFICATION CHOLESTEROL FO [...] HCT IS 5% LESS SOURCE FOR DATA: [employer] 1800 OPERATION MANUAL( AUTOMATED BLOOD COUNTS AND DIFF.) APPENDIX B-3 Cho/HDL Ratio 3.5 CALC [facility] (Family P [facility] CLASSIFICATION CHOLESTEROL FO [...] HCT IS 5% LESS SOURCE FOR DATA: [employer] 1800 OPERATION MANUAL( AUTOMATED BLOOD COUNTS AND DIFF.) APPENDIX B-3 ID Date Data Source [id number] 10/28/2019 01:39:00 PM EST [facility] ([facility] Name Value Range Interpretation Code Description Data Trina rce(s) Supporting Document(s) Glu 176 mg/dL 70-110 Above high normal [facility] ([facility] CLASSIFICATION CHOLESTEROL FO R [...] HCT IS 5% LESS SOURCE FOR DATA: [employer] 1800 OPERATION MANUAL( AUTOMATED BLOOD COUNTS AND DIFF.) APPENDIX B-3 BUN 26 mg/dL 8-23 Above high normal [facility] ([facility] CLASSIFICATION CHOLESTEROL [...] HCT IS 5% LESS SOURCE FOR DATA: [employer] 1800 OPERATION MANUAL( AUTOMATED BLOOD COUNTS AND DIFF.) APPENDIX B-3 BUN/Creatinine Ratio 32.5 CALC [facility] ([facility] CLASSIFICATION CHOLESTEROL FO [...] DIFF.) APPENDIX B-3 Na 140 mmol/L 136-145 [facility] ([facility] CLASSIFICATION CHOLESTEROL FO R ADULTS [...] DIFF.) APPENDIX B-3 K 4.6 mmol/L 3.5-5.1 [facility] ([facility] CLASSIFICATION CHOLESTEROL FO R ADULTS [...] HCT IS 5% LESS SOURCE FOR DATA: [employer] 1800 OPERATION MANUAL( AUTOMATED BLOOD COUNTS AND [...] HCT IS 5% LESS SOURCE FOR DATA: [employer] 1800 OPERATION MANUAL( AUTOMATED BLOOD COUNTS [...] HCT IS 5% LESS SOURCE FOR DATA: [employer] 1800 OPERATION MANUAL( AUTOMATED BLOOD COUNTS AND DIFF.) APPENDIX B-3 CA 9.6 mg/dL 8.6-10.2 [facility] ([facility] CLASSIFICATION CHOLESTEROL FO [...] B-3 A/G Ratio 1.7 CALC [facility] ([facility] CLASSIFICATION CHOLESTEROL FO [...] DIFF.) APPENDIX B-3 Alb 4.1 g/dL 3.5-5.2 [facility] ([facility] CLASSIFICATION CHOLESTEROL FO R [...] DIFF.) APPENDIX B-3 Alp 92.0 U/L 40-129 [facility] CLASSIFICATION CHOLESTEROL FO [...] HCT IS 5% LESS SOURCE FOR DATA: [employer] 1800 OPERATION MANUAL( AUTOMATED BLOOD COUNTS AND DIFF.) APPENDIX B-3 Alt (SGPT) 11 U/L 0-41 [facility] ([facility] CLASSIFICATION CHOLESTEROL FO R ADULTS [...] HCT IS 5% LESS SOURCE FOR DATA: [employer] 1800 OPERATION MANUAL( AUTOMATED BLOOD COUNTS AND DIFF.) APPENDIX B-3 Ast (Sgot) 15 U/L 0-40 [facility] ([facility] CLASSIFICATION CHOLESTEROL FO R ADULTS [...] HCT IS 5% LESS SOURCE FOR DATA: [employer] 1800 OPERATION MANUAL( AUTOMATED BLOOD COUNTS AND DIFF.) APPENDIX B-3 Tbili 0.24 mg/dL 0.0-1.2 [facility] ([facility] CLASSIFICATION CHOLESTEROL FO R ADULTS [...] HCT IS 5% LESS SOURCE FOR DATA: [employer] 1800 OPERATION MANUAL( AUTOMATED BLOOD COUNTS AND [...] HCT IS 5% LESS SOURCE FOR DATA: [employer] 1800 OPERATION MANUAL( AUTOMATED BLOOD COUNTS AND DIFF.) APPENDIX B-3 eGFR Non-Afr. Turkish 87 # [facility] ([facility] CKD-EPI ID Date Data Source [id number] 10/28/2019 01:39:00 PM EST [facility] ([facility] Name Value Range Interpretation Code Description Data Trina rce(s) Supporting Document(s) WBC 9.1 10E3/uL 4.1-10.9 [facility] ([facility] CLASSIFICATION CHOLESTEROL FO R [...] HCT IS 5% LESS SOURCE FOR DATA: [employer] 1800 OPERATION MANUAL( AUTOMATED BLOOD COUNTS [...] HCT IS 5% LESS SOURCE FOR DATA: [employer] 1800 OPERATION MANUAL( AUTOMATED BLOOD COUNTS [...] HCT IS 5% LESS SOURCE FOR DATA: [employer] 1800 OPERATION MANUAL( AUTOMATED BLOOD COUNTS AND DIFF.) APPENDIX B-3 MCH 27.8 pg 26.0-32.0 [facility] ([facility] CLASSIFICATION CHOLESTEROL [...] HCT IS 5% LESS SOURCE FOR DATA: [employer] 1800 OPERATION MANUAL( AUTOMATED BLOOD COUNTS AND DIFF.) APPENDIX B-3 MCV 90.4 fL 80.0-97.0 [facility] ([facility] CLASSIFICATION CHOLESTEROL FO [...] HCT IS 5% LESS SOURCE FOR DATA: [employer] 1800 OPERATION MANUAL( AUTOMATED BLOOD COUNTS AND DIFF.) APPENDIX B-3 MCHC 30.8 g/dL 31.0-36.0 Below low normal [facility] ( [facility] CLASSIFICATION CHOLESTEROL [...] HCT IS 5% LESS SOURCE FOR DATA: [employer] 1800 OPERATION MANUAL( AUTOMATED BLOOD COUNTS AND DIFF.) APPENDIX B-3 PLT 268 10E3/uL 140-440 [facility] ([facility] CLASSIFICATION CHOLESTEROL FO R [...] HCT IS 5% LESS SOURCE FOR DATA: [employer] DYN 1800 OPERATION MANUAL( AUTOMATED BLOOD COUNTS AND DIFF.) APPENDIX B-3 Lym% 18.7 % 10.0-58.5 [facility] CLASSIFICATION CHOLESTEROL FO [...] HCT IS 5% LESS SOURCE FOR DATA: [employer] 1800 OPERATION MANUAL( AUTOMATED BLOOD COUNTS AND DIFF.) APPENDIX B-3 RDW-CV 14.5 % 11.5-14.5 [facility] ([facility] CLASSIFICATION CHOLESTEROL [...] HCT IS 5% LESS SOURCE FOR DATA: [employer] 1800 OPERATION MANUAL( AUTOMATED BLOOD COUNTS AND [...] HCT IS 5% LESS SOURCE FOR DATA: [employer] 1800 OPERATION MANUAL( AUTOMATED BLOOD COUNTS AND DIFF.) APPENDIX B-3 MXD% 11.2 % 0.1-24.0 [facility] ([facility] CLASSIFICATION CHOLESTEROL FO R [...] HCT IS 5% LESS SOURCE FOR DATA: [employer] 1800 OPERATION MANUAL( AUTOMATED BLOOD COUNTS AND DIFF.) APPENDIX B-3 Neut# 6.4 % 2.0-7.8 [facility] CLASSIFICATION CHOLESTEROL FO [...] APPENDIX B-3 Lym# 1.7 10E3/uL 0.6-4.1 [facility] ([facility] CLASSIFICATION CHOLESTEROL FO R [...] DIFF.) APPENDIX B-3 MPV 10.5 fL 9.0-13.0 [facility] CLASSIFICATION CHOLESTEROL FO [...] HCT IS 5% LESS SOURCE FOR DATA: [employer] 1800 OPERATION MANUAL( AUTOMATED BLOOD COUNTS AND DIFF.) APPENDIX B-3 MXD# 1.0 10E3/uL 0.0-1.8 [facility] ([facility] CLASSIFICATION CHOLESTEROL FO R [...] IS 5% LESS SOURCE FOR DATA: [employer] 1800 OPERATION MANUAL( AUTOMATED BLOOD COUNTS AND DIFF.) APPENDIX B-3 ID Date Data Source [id number] 10/28/2019 12:12:00 PM [facility]IGI PHILLIPS ([facility] Name Value Range Interpretation Code Description Data Trina rce(s) Supporting Document(s) Alb 30 mg/L 1-30 [facility] ([facility] Creatinine, Urine 200 mg/dL 10-300 [facility] ([facility] A/C Ratio <30 mg/g % [facility] ([facility] ID Date Data Source [id number] 10/28/2019 12:12:00 PM EST [facility] ([facility] Name Value Range Interpretation Code Description Data Trina rce(s) Supporting Document(s) Hemoglobin A1c/Hemoglobin.total in Blood 7.1 % 4.50-6.20 Above high normal [facility] ([facility] ID Date Data Source [id number] 10/28/2019 12:12:00 PM EST [facility] ([facility] Name Value Range Interpretation Code Description Data Trina rce(s) Supporting Document(s) Appearance of Urine CLEAR [facility] ([facility] Color Urine YELLOW [facility] ([facility] PH Urine 7.0 5.0-8.0 [facility] ([facility] Specific [place] 1.020 1.00-1.03 [facility] ([facility] Glucose Urine NEG [facility] ([facility] Bilirubin.total [Presence] in Urine by Test strip NEG [facility] ([facility] Ketones NEG [facility] ([facility] Blood Urine TRACE [facility] ([facility] Protein Urine NEG [facility] ([facility] Urobilinogen 0.2 EU/dl 0.2-1.0 [facility] ([facility] Nitrite NEG [facility] ([facility] Leukocytes 1+ Above high normal [facility] ([facility] Procedure Social History Code Duration Value Status Description Data Source(s ) Alcohol intake 09/11/2020 12:00:00 AM EDT No completed [facility] Smoking 09/11/2020 12:00:00 AM EDT Former smoker completed Former smoker [facility] Smoking 07/15/2020 12:00:00 AM EDT Patient is a former smoker completed Patient is a former smoker MEDJENNIE ([facility] ) Smoking 04/06/2020 12:00:00 AM EDT - 11/12/2013 12:00:00 AM EST Patient is a former smoker completed Patient is a former smoker ALAN ([facility], ) Vital Signs ID Date Data Source UNK Name Value Range Interpretation Code Description Data Source(s) Oxygen saturation in Arterial blood by Pulse oximetry 91 % 91 % ALAN ([facility] with O2 @3L via nasal cannula Body mass index (BMI) [Ratio] 32.4 kg/m2 32.4 k g/m2 MEDJENNIE ([facility] [place] body weight 148 [lb_av] 148 [lb_av] MEDEN T ([facility] Body weight 207.00 [lb_av] 207.00 [lb_av] MEDEN T ([facility] Body height 67 [in_i] 67 [in_i] MEDJENNIE ([facility] 5'7" Respiratory rate 22 /min 22 /min MEDJENNIE ( [facility] Heart rate 94 /min 94 /min MEDJENNIE ([facility] Body temperature 97.1 [degF] 97.1 [degF] [facility] ([facility] Diastolic blood pressure 64 mm[Hg] 64 mm[Hg] MEDJENNIE ([facility] Systolic blood pressure 108 mm[Hg] 108 mm[Hg] M EDJENNIE ([facility] Oxygen saturation in Arterial blood by Pulse oximetry 93 % 93 % [facility] Body mass index (BMI) [Ratio] 29.70 kg/m2 29.70 kg/m2 [facility] Body weight 93.895 kg 93.895 kg [facility] Body height 177.8 cm 177.8 cm [facility] Respiratory rate 16 /min 16 /min [facility] Heart rate 84 /min 84 /min [facility] Body mass index (BMI) [Ratio] 29.7 kg/m2 [...] k g/m2 [facility] ([facility] [place] body weight 148 [lb_av] 148 [lb_av] MEDEN T ([facility] Body weight 206.00 [lb_av] 206.00 [lb_av] MEDEN T ([facility] Body height 67 [in_i] 67 [in_i] [facility] ([facility] 5'7" Respiratory rate 18 /min 18 /min [facility] ( [facility] Heart rate 88 /min 88 /min [facility] ([facility] Body temperature 98.2 [degF] 98.2 [degF] [facility] ([facility] Diastolic blood pressure 78 mm[Hg] 78 mm[Hg] [facility] ([facility] Systolic blood pressure 136 mm[Hg] 136 mm[Hg] M EDJENNIE ([facility] Oxygen saturation in Arterial blood by Pulse oximetry 95 % 95 % [facility] ([facility] (On O2 @ 3 LPM [place]) Body mass index (BMI) [Ratio] 31.8 kg/m2 31.8 k g/m2 [facility] ([facility] [place] body weight 148 [lb_av] 148 [lb_av] MEDEN T ([facility] Body weight 203.00 [lb_av] 203.00 [lb_av] MEDEN T ([facility] Body height 67 [in_i] 67 [in_i] [facility] ([facility] 5'7" Respiratory rate 18 /min 18 /min [facility] ( [facility] Heart rate 74 /min 74 /min [facility] ([facility] Body temperature 98.3 [degF] 98.3 [degF] [facility] ([facility] Diastolic blood pressure 80 mm[Hg] 80 mm[Hg] [facility] ([facility] Systolic blood pressure 122 mm[Hg] 122 mm[Hg] M EDENT ([facility] Body weight 94.802 kg 94.802 kg [facility] ([facility]) Body mass index (BMI) [Ratio] 31.8 kg/m2 31.8 k g/m2 [facility] ([facility], ) Body weight 209.00 [lb_av] 209.00 [lb_av] MEDEN T ([facility]) Body height 68 [in_i] 68 [in_i] [facility] ([facility]) 5'8" Body temperature 98.8 [degF] 98.8 [degF] [facility] ([facility]) Oxygen saturation in Arterial blood by Pulse oximetry 913 % 913 % [facility] ([facility]) Heart rate 89 /min 89 /min [facility] ([facility]) Diastolic blood pressure 80 mm[Hg] 80 mm[Hg] [facility] ([facility]) Systolic blood pressure 130 mm[Hg] 130 mm[Hg] M EDENT ([facility], ) Oxygen saturation in Arterial blood by Pulse oximetry 94 % 94 % ALAN ([facility] (On O2 @ 3 LPM [place]) Body mass index (BMI) [Ratio] 32.6 kg/m2 32.6 k g/m2 [facility] ([facility] Body weight 208.00 [lb_av] 208.00 [lb_av] MEDEN T ([facility] Body height 67 [in_i] 67 [in_i] [facility] ([facility] 5'7" Respiratory rate 20 /min 20 /min [facility] ( [facility] Heart rate 84 /min 84 /min [facility] ([facility] Body temperature 98.0 [degF] 98.0 [degF] [facility] ([facility] Diastolic blood pressure 62 mm[Hg] 62 mm[Hg] [facility] ([facility] Systolic blood pressure 120 mm[Hg] 120 mm[Hg] M EDJENNIE ([facility] Oxygen saturation in Arterial blood by Pulse oximetry 91 % 91 % MEDJENNIE ([facility] Body mass index (BMI) [Ratio] 32.7 kg/m2 32.7 k g/m2 [facility] ([facility] Body weight 209.00 [lb_av] 209.00 [lb_av] MEDEN T ([facility] Body height 67 [in_i] 67 [in_i] [facility] ([facility] 5'7" Respiratory rate 18 /min 18 /min [facility] ( [facility] Heart rate 88 /min 88 /min [facility] ([facility] Body temperature 98.4 [degF] [...] Body height 67 [in_i] 67 [in_i] [facility] ([facility] 5'7" Respiratory rate 18 /min 18 /min [facility] ( [facility] Heart rate 92 /min 92 /min [facility] ([facility] Body temperature 98.7 [degF] 98.7 [degF] [facility] ([facility] Diastolic blood pressure 82 mm[Hg] 82 mm[Hg] [facility] ([facility] Systolic blood pressure 128 mm[Hg] 128 mm[Hg] M EDENT ([facility]
[2020-12-14] MEDS: PRAVASTATIN 20 MG TAB PO SCH (21:12)
[2020-12-15 01:05] VITALS: BP 128/70
[2020-12-15] MEDS: LATANOPROST 0.005% OPHTH SOLN 2.5 ML OU SCH ×2 (02:13→21:23)
[2020-12-15] MEDS ORDERED: SIMETHICONE 80 MG CHEW TAB PO ONE (02:30)
[2020-12-15 06:00] VITALS: BP 119/66
[2020-12-15 06:42] LABS: HEMOGLOBIN 9.6 g/dl (13.5-17.5); MEAN CORPUSCULAR HEMOGLOBIN 22.3 pg (27.0-33.0); MEAN CORPUSCULAR HGB CONC 27.4 g/dl (32.0-36.5); MEAN CORPUSCULAR VOLUME 81.4 fl (80.0-96.0); PLATELET COUNT, AUTOMATED 282 10^3/uL (150-450); WHITE BLOOD COUNT 8.8 10^3/uL (4.0-10.0)
[2020-12-15 07:06] LABS: BLOOD UREA NITROGEN 22 MG/DL (7-18); CALCIUM LEVEL 8.6 MG/DL (8.8-10.2); CARBON DIOXIDE LEVEL 36 MEQ/L (21-32); CHLORIDE LEVEL 103 MEQ/L (98-107); CREATININE FOR GFR 0.67 MG/DL (0.70-1.30); GLOMERULAR FILTRATION RATE > 60.0 (>42); GLUCOSE, FASTING 118 MG/DL (70-100); POTASSIUM SERUM 4.1 MEQ/L (3.5-5.1); SODIUM LEVEL 143 MEQ/L (136-145)
[2020-12-15] MEDS: ASPIRIN 81 MG ENTERIC TAB PO SCH (08:00)
[2020-12-15] MEDS: SITagliptin 50 MG TAB (JANUVIA) PO SCH (08:01)
[2020-12-15] MEDS: PANTOPRAZOLE 40MG TAB (PROTONIX) PO SCH (08:01)
[2020-12-15] MEDS: FUROSEMIDE 40 MG TAB PO SCH (08:01)
[2020-12-15] MEDS: SPIRONOLACTONE 12.5MG PER 1/2 TABLET PO SCH (08:01)
--- NOTE | 2020-12-15 12:45 | IPNPDOC ---
Text Note Date of Service The patient was seen on 12/15/20. NOTE Subjective: patient seen and examined at bedside. No acute overnight events reported. No new medical complaints this morning. No further episodes of BRBPR, no BM either. PHYSICAL EXAMINATION: VITAL SIGNS: See below General: NAD, lying comfortably in bed HEENT: NC/AT, EOMI Lungs: CTA B/L Heart: +S1S2, RRR Abd: soft, NT, +BS Ext: no edema A/P: 75 yo male for bright red blood per rectum with PMHx including afib/Eliquis and diverticular disease. #BRBPR - history of diverticular disease - clear liquid diet - hold Eliquis, continue ASA - GI c/s pending - d/w Dr. Pedersen - assistance appreciated - possible scope /Sunday - serial H/H #afib - Eliquis on hold - rate controlled #HFpEF - compensated - continue home lasix #COPD - stable #GERD #glaucoma #PAD #HTN #DVT prophylaxis - mechanical VS,Fishbone, I+O VS, Fishbone, I+O Laboratory Tests 12/14/20 14:07 12/15/20 06:23 Vital Signs Date Time Temp Pulse Resp B/P (MAP) Pulse Ox O2 Delivery O2 Flow Rate FiO2 12/15/20 08:01 89 119/66 12/15/20 06:00 97.7 22 91 Nasal Cannula 2.0 I&O- Last 24 Hours up to 6 AM 12/15/20 06:00 Intake Total 180 ml Output Total 350 ml Balance -170 ml JACKIE LÓPEZ MD Dec 15, 2020 12:45
[2020-12-15] MEDS ORDERED: MOM 30ML SUSPENSION UDC PO ONE (13:30)
[2020-12-15 14:00] VITALS: BP 125/70
[2020-12-15] MEDS ORDERED: POLYETHYLENE GLYCOL (MIRALAX) 238GM BOTTLE PO ONE (17:00)
[2020-12-15] MEDS: PRAVASTATIN 20 MG TAB PO SCH (21:23)
[2020-12-15 22:00] VITALS: BP 126/69
[2020-12-16] VITALS (7 sets, daily range): BP systolic 113–126; BP diastolic 62–71
[2020-12-16 06:34] LABS: HEMATOCRIT 37.6 % (42.0-52.0); HEMOGLOBIN 10.3 g/dl (13.5-17.5); MEAN CORPUSCULAR HEMOGLOBIN 21.9 pg (27.0-33.0); MEAN CORPUSCULAR HGB CONC 27.4 g/dl (32.0-36.5); PLATELET COUNT, AUTOMATED 328 10^3/uL (150-450); WHITE BLOOD COUNT 9.5 10^3/uL (4.0-10.0)
[2020-12-16 06:55] LABS: BLOOD UREA NITROGEN 20 MG/DL (7-18); CARBON DIOXIDE LEVEL 35 MEQ/L (21-32); CHLORIDE LEVEL 99 MEQ/L (98-107); GLOMERULAR FILTRATION RATE > 60.0 (>42); GLUCOSE, FASTING 122 MG/DL (70-100); POTASSIUM SERUM 3.8 MEQ/L (3.5-5.1); SODIUM LEVEL 138 MEQ/L (136-145)
[2020-12-16] MEDS ORDERED: POLYETHYLENE GLYCOL (MIRALAX) 238GM BOTTLE PO ONE (07:00)
[2020-12-16] MEDS: PANTOPRAZOLE 40MG TAB (PROTONIX) PO SCH (08:42)
[2020-12-16] MEDS: SPIRONOLACTONE 12.5MG PER 1/2 TABLET PO SCH (08:42)
[2020-12-16] MEDS: ASPIRIN 81 MG ENTERIC TAB PO SCH (08:43)
[2020-12-16] MEDS: SITagliptin 50 MG TAB (JANUVIA) PO SCH (08:43)
[2020-12-16] MEDS: FUROSEMIDE 40 MG TAB PO SCH (08:43)
[2020-12-16] MEDS ORDERED: MAGNESIUM CITRATE 300 ML BTL PO ONE (10:45)
--- NOTE | 2020-12-16 12:21 | IPNPDOC ---
Text Note Date of Service The patient was seen on 12/16/20. NOTE Subjective: patient seen and examined at bedside. No acute overnight events reported. No new medical complaints this morning. No further episodes of BRBPR. PHYSICAL EXAMINATION: VITAL SIGNS: See below General: NAD, lying comfortably in bed HEENT: NC/AT, EOMI Lungs: CTA B/L Heart: +S1S2, RRR Abd: soft, NT, +BS Ext: no edema A/P: 75 yo male for bright red blood per rectum with PMHx including afib/Eliquis and diverticular disease. #BRBPR - history of diverticular disease - clear liquid diet - hold Eliquis, continue ASA - GI c/s pending - d/w Dr. Pedersen - assistance appreciated - plan for colonoscopy today - serial H/H #afib - Eliquis on hold - rate controlled #HFpEF - compensated - continue home lasix #COPD - stable #GERD #glaucoma #PAD #HTN #DVT prophylaxis - mechanical VS,Fishbone, I+O VS, Fishbone, I+O Laboratory Tests 12/16/20 06:19 Vital Signs Date Time Temp Pulse Resp B/P (MAP) Pulse Ox O2 Delivery O2 Flow Rate FiO2 12/16/20 08:42 85 126/70 12/16/20 08:00 3.0 12/16/20 06:00 97.6 17 93 Nasal Cannula I&O- Last 24 Hours up to 6 AM 12/16/20 06:00 Intake Total 2440 ml Output Total 1200 ml Balance 1240 ml JACKIE LÓPEZ MD Dec 16, 2020 12:21
[2020-12-16] MEDS ORDERED: LIDOCAINE 2% 100MG/5ML SDV (FOR ANES.) As Ordered ONE (18:51)
[2020-12-16] MEDS ORDERED: propofoL 200 MG/20 ML VIAL As Ordered ONE (18:51)
--- NOTE | 2020-12-16 19:59 | ROOR ---
Patient Name: Lalo Luna Procedure Date: 12/16/2020 6:50 PM Date of : 1945 Age: 75 Gender: Male Note Status: Finalized Procedure: Colonoscopy Indications: Hematochezia Providers: Bacilio PEDERSEN MD Referring MD: 2. Inpatient 2. Inpatient Requesting Provider: Medicines: Monitored Anesthesia Care Complications: No immediate complications. Procedure: Pre-Anesthesia Assessment: - The heart rate, respiratory rate, oxygen saturations, blood pressure, adequacy of pulmonary ventilation, and response to care were monitored throughout the procedure. The Colonoscope was introduced through the anus and advanced to 5 cm into the ileum. The colonoscopy was performed without difficulty. The patient tolerated the procedure well. The quality of the bowel preparation was good. Findings: Hemorrhoids were found on perianal exam. Non-thrombosed prolapsed external and internal hemorrhoids were found during retroflexion. The hemorrhoids were large. Multiple small and large-mouthed diverticula were found in the sigmoid colon and descending colon. There was no evidence of diverticular bleeding. The exam was otherwise normal throughout the examined colon. Retroflexion in the right colon was performed. The terminal ileum appeared normal. Impression: - Hemorrhoids found on perianal exam. - Non-thrombosed non bleeding prolapsed external and internal hemorrhoids. - Moderate diverticulosis in the sigmoid colon and in the descending colon. There was no evidence of diverticular bleeding. - The colon is otherwise normal. - The examined portion of the ileum was normal. - No specimens collected. Recommendation: - Resume regular diet. - Return patient to [facility] for [facility] care. - Return to primary care physician as previously scheduled. - Does not need routine follow up with me. Procedure Code(s): --- Professional --- 72212, Colonoscopy, flexible; diagnostic, including collection of specimen(s) by brushing or washing, when performed (separate procedure) Diagnosis Code(s): --- Professional --- K57.30, Diverticulosis of large intestine without perforation or abscess without bleeding K92.1, Melena (includes Hematochezia) K64.8, Other hemorrhoids CPT copyright 2019 [employer]. All rights reserved. The codes documented in this report are preliminary and upon escort vehicle driver review may be revised to meet current compliance requirements. Bacilio Pedersen MD Bacilio PEDERSEN MD 12/16/2020 7:58:53 PM Electronically signed by Bacilio PEDERSEN MD Number of Addenda: 0 Note Initiated On: 12/16/2020 6:50 PM Estimated Blood Loss: Estimated blood loss: none.
--- NOTE | 2020-12-16 20:02 | ROOR ---
Patient Name: Lalo Luna Procedure Date: 12/16/2020 7:59 PM Date of : 1945 Age: 75 Gender: Male Note Status: Finalized Procedure: Upper GI endoscopy Indications: Iron deficiency anemia Providers: Bacilio PEDERSEN MD Referring MD: 2. Inpatient 2. Inpatient Requesting Provider: Medicines: Monitored Anesthesia Care Complications: No immediate complications. Procedure: Pre-Anesthesia Assessment: - The heart rate, respiratory rate, oxygen saturations, blood pressure, adequacy of pulmonary ventilation, and response to care were monitored throughout the procedure. The Endoscope was introduced through the mouth, and advanced to the second part of duodenum. The upper GI endoscopy was accomplished without difficulty. The patient tolerated the procedure well. Findings: The esophagus was normal. The stomach was normal. The examined duodenum was normal. Impression: - Normal esophagus. - Normal stomach. - Normal examined duodenum. - No specimens collected. Recommendation: - Observe patient's clinical course. - Return to primary care physician as previously scheduled. - Does not need routine follow up with me. Procedure Code(s): --- Professional --- 60538, Esophagogastroduodenoscopy, flexible, transoral; diagnostic, including collection of specimen(s) by brushing or washing, when performed (separate procedure) Diagnosis Code(s): --- Professional --- D50.9, Iron deficiency anemia, unspecified CPT copyright 2019 [employer]. All rights reserved. The codes documented in this report are preliminary and upon surgical coder review may be revised to meet current compliance requirements. Bacilio Pedersen MD Bacilio PEDERSEN MD 12/16/2020 8:01:34 PM Electronically signed by Bacilio PEDERSEN MD Number of Addenda: 0 Note Initiated On: 12/16/2020 7:59 PM Estimated Blood Loss: Estimated blood loss: none.
[2020-12-16] MEDS ORDERED: ONDANSETRON 4MG/2ML VIAL IV PRN (21:15)
[2020-12-16] MEDS ORDERED: fentaNYL 100 MCG/2 ML INJECTION (J3010) IV PRN (21:15)
[2020-12-16] MEDS: PRAVASTATIN 20 MG TAB PO SCH (22:20)
[2020-12-16] MEDS: LATANOPROST 0.005% OPHTH SOLN 2.5 ML OU SCH (22:21)
[2020-12-17 00:10] VITALS: BP 110/63
[2020-12-17 01:10] VITALS: BP 120/74
[2020-12-17 06:00] VITALS: BP 114/61
[2020-12-17 06:09] LABS: HEMATOCRIT 34.5 % (42.0-52.0); HEMOGLOBIN 9.6 g/dl (13.5-17.5); MEAN CORPUSCULAR HEMOGLOBIN 22.6 pg (27.0-33.0); MEAN CORPUSCULAR HGB CONC 27.8 g/dl (32.0-36.5); MEAN CORPUSCULAR VOLUME 81.2 fl (80.0-96.0); PLATELET COUNT, AUTOMATED 291 10^3/uL (150-450); RED BLOOD COUNT 4.25 10^6/uL (4.30-6.10); WHITE BLOOD COUNT 8.1 10^3/uL (4.0-10.0)
[2020-12-17 06:34] LABS: BLOOD UREA NITROGEN 21 MG/DL (7-18); CALCIUM LEVEL 8.6 MG/DL (8.8-10.2); CARBON DIOXIDE LEVEL 37 MEQ/L (21-32); CHLORIDE LEVEL 102 MEQ/L (98-107); CREATININE FOR GFR 0.66 MG/DL (0.70-1.30); GLOMERULAR FILTRATION RATE > 60.0 (>42); GLUCOSE, FASTING 124 MG/DL (70-100); POTASSIUM SERUM 3.9 MEQ/L (3.5-5.1); SODIUM LEVEL 143 MEQ/L (136-145)
[2020-12-17] MEDS: SITagliptin 50 MG TAB (JANUVIA) PO SCH (09:11)
[2020-12-17] MEDS: FUROSEMIDE 40 MG TAB PO SCH (09:12)
[2020-12-17] MEDS: PANTOPRAZOLE 40MG TAB (PROTONIX) PO SCH (09:12)
[2020-12-17] MEDS: SPIRONOLACTONE 12.5MG PER 1/2 TABLET PO SCH (09:12)
[2020-12-17] MEDS: ASPIRIN 81 MG ENTERIC TAB PO SCH (09:13)
[2020-12-17 09:14] VITALS: BP 126/68
[2020-12-17 10:00] VITALS: BP 123/68
--- NOTE | 2020-12-17 13:10 | DS.PDOC ---
Discharge Summary General Date of Admission Dec 14, 2020 at 18:01 Date of Discharge 12/17/20 Discharge Summary PROCEDURES PERFORMED DURING STAY: EGD, colonoscopy ADMITTING DIAGNOSES: #GI bleed SECONDARY DIAGNOSES: #afib/Eliquis #HFpEF #COPD #GERD #glaucoma #PAD #HTN #diverticular disease COMPLICATIONS/CHIEF COMPLAINT: BRBPR. HOSPITAL COURSE: 75 year old male with past medical history as indicated presents for sudden onset this morning of bright red blood per rectum. He noted blood on the toilet paper, in the toilet bowl, and dripping from his rectum. States his last colonoscopy was around 9-10 years ago, done in [place], and was WNL as per patient. He denies any pain, but does note history of hemorrhoids. Denies shortness of breath, chest pain, N/V/D. Admitted on clear liquid diet, anti-coagulation on hold. He was seen in consultation by GI, and underwent an EGD and colonoscopy. No significant findings as per GI. Patient recommended for discharge home by GI, with outpatient follow up, and to resume anti-coagulation in 3 days. Hospital stay was otherwise unremarkable. DISCHARGE MEDICATIONS: Please see below. ALLERGIES: Please see below. PHYSICAL EXAMINATION ON DISCHARGE: VITAL SIGNS: See below General: NAD, lying comfortably in bed HEENT: NC/AT, EOMI Lungs: CTA B/L Heart: +S1S2, RRR Abd: soft, NT, +BS Ext: no edema LABORATORY DATA: Please see below. ACTIVITY: [As tolerated]. DISPOSITION: Home, Self-Care. DISCHARGE INSTRUCTIONS: 1. PCP in 3-5 days 2. Resume anti-coagulation as directed. DISCHARGE CONDITION: [Stable]. TIME SPENT ON DISCHARGE: 35 minutes. Vital Signs/I&Os Vital Signs Date Time Temp Pulse Resp B/P (MAP) Pulse Ox O2 Delivery O2 Flow Rate FiO2 12/17/20 11:05 3.0 12/17/20 10:00 98.0 106 18 123/68 (86) 98 Nasal Cannula I&O- Last 24 Hours up to 6 AM 12/17/20 05:59 Intake Total 350 ml Output Total 525 ml Balance -175 ml Laboratory Data Labs 24H Laboratory Tests 2 12/17/20 05:23: Nucleated Red Blood Cells % (auto) 0.0, Anion Gap 4L, Glomerular Filtration Rate > 60.0, Calcium Level 8.6L CBC/BMP Laboratory Tests 12/17/20 05:23 Discharge Medications Scheduled Aspirin (Aspirin EC) 81 Mg Tab, 81 MG PO DAILY, (Reported) Diltiazem HCl (Diltiazem HCl) 30 Mg Tablet, 30 MG PO BID, (Reported) Furosemide (Furosemide) 40 Mg Tablet, 40 MG PO DAILY, (Reported) Latanoprost (Xalatan) 0.005 % Alesha, 1 DROP OU QHS, (Reported) Mometasone/Formoterol (Dulera 200 Mcg/5 Mcg Inhaler) 1 Aer Aer, 1 PUFF INH BID, (Reported) Pantoprazole Sodium (Protonix) 40 Mg Tab, 40 MG PO DAILY, (Reported) Pravastatin Sodium (Pravachol) 20 Mg Tab, 20 MG PO QHS, (Reported) Sitagliptin (Januvia) 50 Mg Tablet, 50 MG PO DAILY, (Reported) Spironolactone (Spironolactone) 25 Mg Tablet, 12.5 MG PO DAILY, (Reported) Scheduled PRN Albuterol Sulfate (Ventolin Hfa) 108 Mcg/Act Aer, 2 PUFFS INH Q4H PRN for SHORTNESS OF BREATH, (Reported) Allergies Coded Allergies: aspirin (Verified Adverse Reaction, Mild, UPSET STOMACH, 12/14/20) CAN TAKE ENTERIC COATED JACKIE LÓPEZ MD Dec 17, 2020 13:10
== END 2020-12-17 12:06 | disposition home or self-care (01) | DRG 378 ==
LOC: EDBD 13:26 → M ED 13:26 → M ED INP 18:01 → M MSPAV 12-15 01:07
PROVIDERS: ADMIT Internal Medicine; ATTEND Internal Medicine
PROC: 0DJD8ZZ Inspection of Lower Intestinal Tract, Via Natural or Artificial Opening Endoscopic (ICD-10-PCS; 2020-12-16)
PROC: 0DJ08ZZ Inspection of Upper Intestinal Tract, Via Natural or Artificial Opening Endoscopic (ICD-10-PCS; principal; 2020-12-16 17:00)
DX: K62.5 Hemorrhage of anus and rectum (principal); I50.32 Chronic diastolic (congestive) heart failure; I48.91 Unspecified atrial fibrillation; I11.0 Hypertensive heart disease with heart failure; J44.9 Chronic obstructive pulmonary disease, unspecified; Z79.01 Long term (current) use of anticoagulants; K21.9 Gastro-esophageal reflux disease without esophagitis; H40.9 Unspecified glaucoma; K57.30 Diverticulosis of large intestine without perforation or abscess without bleeding; Z79.82 Long term (current) use of aspirin; Z79.899 Other long term (current) drug therapy; K64.8 Other hemorrhoids; D50.9 Iron deficiency anemia, unspecified

== ENCOUNTER → 2021-04-04 | Outpatient (CLI) | payer MEDICARE ==
[~2021-04-04] MED LIST changes: +FURO40TA2 PO; +HYDR-3490 PO; -HYDR25TAB PO; +LISI10TA22 PO; -LISI10TA4 PO; +SPIR-10 PO
--- NOTE | 2021-04-04 15:14 | REP ---
INDICATION: NICOTINE DEPENDENCE COMPARISON: 04/01/2020, 12/04/2017 TECHNIQUE: Axial noncontrast images from the thoracic inlet to the upper abdomen using low-dose lung screening technique (LDCT). FINDINGS: Lung ruff are well aerated and chronic stable changes are again appreciated. No acute consolidation, significant nodule or mass lesion. No effusion. No pneumothorax. Tracheobronchial tree is patent. IMPRESSION: Lung-RADS category 1. Stable chronic findings. Management recommendations include annual low-dose CT surveillance. <Electronically signed by Harlan Haines > 04/04/21 [id number]
== END ==
LOC: M RAD 14:16
PROVIDERS: ATTEND Internal Medicine Pulmonary Disease
DX: Z12.2 Encounter for screening for malignant neoplasm of respiratory organs (principal); Z87.891 Personal history of nicotine dependence

== ENCOUNTER → 2021-07-02 | Outpatient (CLI) | payer MEDICARE ==
--- NOTE | 2021-07-02 14:25 | REP ---
INDICATION: CONTUSION OF LEFT KNEE, INITIAL ENCOUNTER COMPARISON: None. TECHNIQUE: AP, lateral, bilateral oblique views of the left knee. FINDINGS: Osteopenia and tricompartmental degenerative changes are appreciated including chondrocalcinosis. Lateral view best demonstrates primarily anterior soft tissue swelling along with suspected small effusion. No obvious acute fracture or dislocation identified. IMPRESSION: 1. Osteopenia and degenerative changes. 2. Anterior swelling and suspected small effusion. No definite acute fracture is identified. <Electronically signed by Harlan Haines > 07/02/21 [id number]
== END ==
LOC: M RAD 13:31
PROVIDERS: ATTEND Physician Assistant
DX: M85.862 Other specified disorders of bone density and structure, left lower leg (principal); M79.89 Other specified soft tissue disorders; M17.12 Unilateral primary osteoarthritis, left knee

== ENCOUNTER 2021-09-22 16:40 | Emergency (ER) | payer MEDICARE ==
[~2021-09-22] VITALS: Ht 177.8 cm; Wt 93.6 kg
--- OUTSIDE RECORDS SUMMARY | 2021-09-22 16:51 | CCD | Continuity of Care Document ---
Author Author Lalo VASQUEZ MD Organization Unknown Address [address] [place] [address] Phone [phone] Care Team Providers Care Gem Stone Cutter Name Role Phone Hesham Macdonald DO AUTM Unavailable Problems Active Problems Provider Date Pure hypercholesterolemia Bacilio Vasquez MD Onset: 021 Essential hypertension Bacilio Vasquez MD Onset: 08/08/2021 Chronic ulcer of calf Bacilio Vasquez MD Onset: 08/30/2021 Social History Type Date Description Comments Sex Unknown ETOH Use Occasionally consumes alcohol Tobacco Use Start: Unknown End: Unknown Patient is a former smoker Recreational Drug Use Never Used Drugs Allergies and adverse reactions Description No Known Drug Allergies Medications Active Medications SIG Qnty Indications Ordering Provide r Date Januvia 50mg Tablets 1/2 tab by mouth every day 30tabs Bacilio Vasquez MD 08/08/2021 Doxycycline Hyclate 100mg Capsules 1 by mouth twice daily Unknown Ferrous Gluconate 324(38Fe) mg Tab lets 1 by mouth every day Unknown Pravastatin Sodium 20mg Tablets 1 by mouth every day Unknown Levalbuterol HCL 1.25mg/3ML Nebuli zer use one ampule every 4 hours as needed Unknown Furosemide 40mg Tablets 1 by mouth twice a day Unknown Spironolactone 25mg Tablets 1/2 tab by mouth every day Unknown Diltiazem HCL 60mg Tablets 1 tab by mouth twice a day Unknown Eliquis 5mg Tablets 1 tab by mouth twice a day Unknown Pantoprazole Sodium 40mg Tablets D R 1 by mouth every day Unknown Dulera 200-5mcg/Act Aerosol 1puff twice a day Unknown Ventolin HFA 108(90Base) mcg/Act A erosol 2 puff every 4-6 hours as needed Unknown 0 Aspirin 81 Low Dose 81mg Chewtabs 1 tab by mouth every day as directed Unknown Immunizations Description No Information Available Vital Signs Date Vital Result Comment 09/15/2021 11:37am BP Systolic 139 mmHg BP Diastolic 89 mmHg Heart Rate 79 /min Body Temperature 98.3 F Respiratory Rate 16 /min O2 % BldC Oximetry 96 % on 3L O2 08/30/2021 11:34am BP Systolic 130 mmHg BP Diastolic 62 mmHg Heart Rate 80 /min Body Temperature 98.6 F Respiratory Rate 18 /min O2 % BldC Oximetry 85 % with potable O2 on Weight 206.00 lb Weight 93.442 kg Height 70 inches 5'10" BMI (Body Mass Index) 29.6 kg/m2 BSA (Body Surface Area) 2.11 m2 Results Description No Information Available Procedures Date Code Description Status 09/08/2021 04600 Office/Outpatient Established Mo d MDM 30-39 Min Completed 08/30/2021 00584 Office/Outpatient New Low MDM 30 -44 Minutes Completed Medical Devices Description No Information Available Encounters Description No Information Available Assessments Date Code Description Provider 09/08/2021 L97.229 Non-pressure chronic ulcer of left calf with unspecified severity Bacilio Vasquez MD 08/30/2021 L97.229 Non-pressure chronic ulcer of left calf with unspecified severity Baiclio Vasquez MD Plan of Treatment Future Appointment(s):* 09/21/2021 10:15 am - Bacilio [facility]quez MD at [facility] 09/08/2021 - Bacilio Vasquez MD* L97.229 Non-pressure chronic ulcer of left calf with unspecified severity* Recommendations:* Follow-up in 1 week. Functional Status Description No Information Available Mental Status Description No Information Available Referrals Description No Information Available
--- OUTSIDE RECORDS SUMMARY | 2021-09-22 16:51 | CCD | Continuity of Care Document ---
Author Author [facility] Organization Unknown Address [address] [place] [address] Phone Unavailable Care Team Providers Care Bottomer Operator Name Role Phone Yomi Barcenas D.P.M. AUTM [phone] Hesham Macdonald D.O. AUTM [phone] Problems Active Problems Provider Date Atherosclerosis of arteries of the extremities Deng Robles M.D. Onset: 04/19/2012 Social History Type Date Description Comments Sex Unknown Tobacco Use Start: Unknown End: Unknown Former Cigarette Smo ker 1 Pack Daily ETOH Use Denies alcohol use Tobacco Use Start: Unknown End: Patient is a former smoker Smoking Status Reviewed: 09/05/21 Patient is a former smoker Allergies and adverse reactions Description No Known Drug Allergies Medications Active Medications SIG Qnty Indications Ordering Provide r Date Pantoprazole Sodium 40mg Tablets D R every day Unknown Latanoprost 0.005% Solution 1 drop both eyes at bedtime Unknown Dulera 200-5mcg/Act Aerosol inhale 2 puffs 2 (two) times a day Unknown Januvia 100mg Tablets 1 tab e very day Unknown Lasix 40mg Tablets 1 by mo uth every day Unknown Spironolactone 25mg Tablets 1/2 tab every day Unknown Diltiazem HCL 30mg Tablets bi d Unknown Eliquis 5mg Tablets 1 by mouth twice a day Unknown Pravastatin Sodium 20mg Tablets every day Unknown Aspirin 81mg Tablets DR 1 by mouth every day Unknown Ferrous Gluconate 324(38Fe) mg Tab lets take one tablet by mouth once a day Unknown Immunizations Description No Information Available Vital Signs Date Vital Result Comment 09/05/2021 2:07pm BP Systolic Right Arm 112 mmHg BP Diastolic Right Arm 70 mmHg Body Temperature 96.5 F 09/02/2020 2:12pm BP Systolic Right Arm 150 mmHg BP Diastolic Right Arm 88 mmHg BP Systolic Left Arm 150 mmHg BP Diastolic Left Arm 88 mmHg Height 70 inches 5'10" Weight 207.00 lb Weight 93.895 kg BMI (Body Mass Index) 29.7 kg/m2 Pain Level 0 Results Test Acquired Date Facility Test Result H/L Range Note Xray 09/05/2021 Main Office [phone] Arterial Ultrasound Lower Extremity Left <pending> Procedures Date Code Description Status 09/05/2021 78994 Office/Outpatient Established Lo w MDM 20-29 Min Completed 09/05/2021 57031 Duplex Scan Lower Extremity, Fol low-Up Or Limited Completed Medical Devices Description No Information Available Encounters Type Date Location Provider Dx Diagnosis Office Visit 09/05/2021 2:30p Main Office Prashanth Ramirez I70.292 Ot athscl [place] arteries of extremities, 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 Assessments Date Code Description Provider 09/05/2021 I70.292 Other atherosclerosi s of [place] arteries of extremities, left leg Prashanth Ramirez 09/05/2021 I70.92 Chronic total occlusion of arter y of the extremities Prashanth Ramirez 09/05/2021 I70.212 Atherosclerosis of n ative arteries of extremities with intermittent claudication, left leg [facility] 09/05/2021 Z48.812 Encounter for manjeet pitts aftercare following surgery on the circulatory system [facility] Plan of Treatment Future Appointment(s):* 09/06/2022 2:00 pm - [facility] at Main Office 09/05/2021 - Prashanth Ramirez* I70.292 Ot athscl [place] arteries of extremities, left leg * 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
--- OUTSIDE RECORDS SUMMARY | 2021-09-22 16:51 | CCD | Continuity of Care Document ---
Author Lalo Avelar Organization Unknown Address [address] [place], [place] [id number] [address] [place] [address] Phone [phone] Care Team Providers Care Manager Reimbursement Name Role Phone Yomi Barcenas D.P.M. AUTM [phone] Hesham Macdonald D.O. AUTM [phone] Problems Active Problems Provider Date Atherosclerosis of [...] H/L Range Note Xray 09/05/2021 Main Office [phone] Arterial Ultrasound Lower Extremity Left <pending> Procedures Date Code Description Status 09/05/2021 51778 Office/Outpatient Established Lo w MDM 20-29 Min Completed 09/05/2021 06469 Duplex Scan Lower Extremity, Fol low-Up Or Limited Completed Medical Devices Description No Information Available Encounters Type Date Location Provider Dx Diagnosis Office Visit 09/05/2021 2:30p Main Office Prashanth Ramirez I70.292 Ot athscl [place] arteries of extremities, 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 Assessments Date Code Description Provider 09/05/2021 I70.292 Other atherosclerosi s of [place] arteries of extremities, left leg Prashanth Ramirez 09/05/2021 I70.92 Chronic total occlusion of arter y of the extremities Prashanth Ramirez 09/05/2021 I70.212 Atherosclerosis of n ative arteries of extremities with intermittent claudication, left leg [facility] 09/05/2021 Z48.812 Encounter for manjeet al aftercare following surgery on the circulatory system [facility] Plan of Treatment Future Appointment(s):* 09/06/2022 2:00 pm - [facility] at Main Office 09/05/2021 - Prashanth Ramirez* I70.292 Ot athscl [place] arteries of extremities, left leg * 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
--- OUTSIDE RECORDS SUMMARY | 2021-09-22 16:51 | CCD | Continuity of Care Document ---
Author Lalo Avelar Organization Unknown Address [address] [place], [place] [id number] [address] [place] [address] Phone [phone] Care Team Providers Care General Teller Name Role Phone Yomi Barcenas D.P.M. AUTM [phone] Hesham Macdonald D.O. AUTM [phone] Problems Active Problems Provider Date Atherosclerosis of [...] H/L Range Note Xray 09/05/2021 Main Office [phone] Arterial Ultrasound Lower Extremity Left <pending> Procedures Date Code Description Status 09/05/2021 40836 Office/Outpatient Established Lo w MDM 20-29 Min Completed 09/05/2021 66085 Duplex Scan Lower Extremity, Fol low-Up Or Limited Completed Medical Devices Description No Information Available Encounters Type Date Location Provider Dx Diagnosis Office Visit 09/05/2021 2:30p Main Office Prashanth Ramirez I70.292 Ot ath[facility]cl [place] arteries of extremities, 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 Assessments Date Code Description Provider 09/05/2021 I70.292 Other atherosclerosi s of [place] arteries of extremities, left leg Prashanth Ramirez [...] 09/05/2021 - Prashanth Ramirez* I70.292 Ot ath[facility]cl [place] arteries of extremities, left leg * 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
--- OUTSIDE RECORDS SUMMARY | 2021-09-22 16:51 | CCD | Continuity of Care Document ---
Author Author [facility] Organization Unknown Address [address] [place] [address] Phone Unavailable Care Team Providers Care Jowl Trimmer Name Role Phone Yomi Barcenas D.P.M. AUTM [phone] Hesham Macdonald D.O. AUTM [phone] Problems Active Problems Provider Date Atherosclerosis of [...] H/L Range Note Xray 09/05/2021 Main Office [phone] Arterial Ultrasound Lower Extremity Left <pending> Procedures Date Code Description Status 09/05/2021 05966 Office/Outpatient Established Lo w MDM 20-29 Min Completed 09/05/2021 70895 Duplex Scan Lower Extremity, Fol low-Up Or Limited Completed Medical Devices Description No Information Available Encounters Type Date Location Provider Dx Diagnosis Office Visit 09/05/2021 2:30p Main Office Prashanth Ramirez I70.292 Ot athscl [place] arteries of extremities, 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
--- OUTSIDE RECORDS SUMMARY | 2021-09-22 16:51 | CCD | Continuity of Care Document ---
Author Lalo Avelar Organization Unknown Address [address] [place] [address] [place] [address] Phone [phone] Care Team Providers Care Gripper Machine Operator Name Role Phone Yomi Barcenas D.P.M. AUTM [phone] Hesham Macdonald D.O. 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, 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
--- OUTSIDE RECORDS SUMMARY | 2021-09-22 16:51 | CCD | Continuity of Care Document ---
Author Lalo Avelar Organization Unknown Address [address] [place], [place] [id number] [address] [place] [address] Phone [phone] Care Team Providers Care Manager Medical Affairs Name Role Phone Yomi Barcenas D.P.M. AUTM [phone] Hesham Macdonald D.O. 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, 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
--- OUTSIDE RECORDS SUMMARY | 2021-09-22 16:51 | CCD | Continuity of Care Document ---
Author Author [facility] Organization Unknown Address [address] [place] [address] Phone Unavailable Care Team Providers Care Business Center Manager Name Role Phone Yomi Barcenas D.P.M. AUTM [phone] Hesham Macdonald D.O. 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, 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
--- OUTSIDE RECORDS SUMMARY | 2021-09-22 16:51 | CCD | Continuity of Care Document ---
Author Author Lalo VASQUEZ MD Organization Unknown Address [address] [place] [address] Phone [phone] Care Team Providers Care Oil Field Equipment Mechanic Name Role Phone Hesham Macdonald DO AUTM Unavailable Problems Active Problems Provider Date Pure hypercholesterolemia Bacilio Vasquez MD Onset: 021 Essential hypertension Bacilio Vasquez MD Onset: 08/08/2021 Social History Type Date Description Comments Sex Unknown Allergies and adverse reactions Description No Information Available Medications Active Medications SIG Qnty Indications Ordering [...] by mouth every day as directed Unknown 00/0 Immunizations Description No Information Available Vital Signs Date Vital Result Comment 08/30/2021 11:34am BP Systolic 130 mmHg BP Diastolic 62 mmHg Heart Rate 80 /min Body Temperature 98.6 F Respiratory Rate 18 /min O2 % BldC Oximetry 85 % with potable O2 on Weight 206.00 lb Weight 93.442 kg Height 70 inches 5'10" BMI (Body Mass Index) 29.6 kg/m2 BSA (Body Surface Area) 2.11 m2 Results Description No Information Available Procedures Description No Information Available Medical Devices Description No Information Available Encounters Description No Information Available Assessments Description No Information Available Plan of Treatment Future Appointment(s):* 09/08/2021 11:45 am - Bacilio Vasquez MD at [facility] Functional Status Description No Information Available Mental Status Description No Information Available Referrals Description No Information Available
--- OUTSIDE RECORDS SUMMARY | 2021-09-22 16:52 | CCD | Continuity of Care Document ---
Author Author Lalo DAY D.O. Organization Unknown Address [address] [place] [address] Phone [phone] Problems Active Problems Provider Date Chronic obstructive [...] smoker quit March 2014 Smoking Status Reviewed: 06/09/21 Patient is a former smoker qu it March 2014 Allergies, Adverse Reactions, Alerts Active Allergies Criticality Reaction | Severity Comments Date Aspirin Unable to assess criticality Ulcers 09/22/2010 NSAIDs Unable to assess criticality ulcers 08/29/2012 Inactive Allergies NKDA Unable to assess criticality 02/19/2002 Medications Active Medications SIG Qnty Indications Ordering Provide r Date Doxycycline Hyclate 100mg Capsules 1 cap by mouth twice a day 20caps Hesham Day D.O., FAAF P 07/06/2021 Ferrous Gluconate 324(38Fe) mg Tab lets 1 by mouth every day 90tabs Hesham Day D.O., FAAFP 01/03/2021 Januvia 50mg Tablets samples Of 100 MG To Be Cut In Half Daily 90tabs Hesham Day D.O., FAAFP 12/01/2020 Pravastatin Sodium 20mg Tablets take 1 tablet by mouth every day for cholesterol 90tabs Ty Day D.O., FAAFP 04/08/2020 Levalbuterol HCL 1.25mg/3ML Nebuli zer Use 1 Vial Via Nebulizer Three Times Daily 225units Hesham Day D.O., FAAFP 01/30/2020 Furosemide 40mg Tablets Take 1 Tablet By Mouth Twice Daily 180tabs Hesham Day D.O., FAAFP 1 Shingrix 50mcg Suspension Rec 1 intramuscular today repeat in 2-6 months 1units Hesham Day D.O., FAAFP 06/27/2018 Spironolactone 25mg Tablets Take 1/2 Tablet By Mouth Every Day. Maximum Daily Dose Is 1/2 Tablet 45tabs Hesham Day D.O., FAAFP 12/26/2017 Diltiazem HCL 30mg Tablets Take 1 Tablet By Mouth Twice Daily. Maximum Daily Dose Is 2 Tablets 180tabs Hesham Day D.O., FAAFP 12/26/2017 Acetaminophen 325mg Tablets 2 tablets by mouth as needed every 4 hours for pain/fever 100tabs Hesham Day D.O., FAAFP 12/26/2017 Eliquis 5mg Tablets Take 1 Tablet By Mouth Twice Daily 60tabs Hesham Day D.O., FAAFP Alphagan P 0.1% Solution 1 drop three times daily both eyes Hesham Day D.O., FAA FP 12/26/2017 Prevnar 13 Suspension as directed [facility] 08/30/2017 Pantoprazole Sodium 40mg Tablets D R take 1 tablet by mouth every day. 90tabs Hesham Day D.O. , FAAFP 09/01/2016 Mupirocin Calcium 2% Cream to Left Elbow 15gm Hesham Day D.O., FAAFP 06/29/2016 Triamcinolone Acetonide 0.1% Cream apply locally Elbows bid 60gm Hesham Day D.O., FAAFP 03/09/2016 Dulera 200-5mcg/Act Aerosol 1 puff twice a day 3units Hesham Day D.O., FAAFP Ventolin HFA 108(90Base) mcg/Act A erosol ii puffs every 4-6 hours as needed 3units [facility] gonzalez [facility]., [facility] 12/01/2014 Contour Blood Glucose Test Strips Strips use to test blood sugar twice daily as needed as directed 100units E1 1.9 Hesham Day D.O., FAAFP 08/27/2014 Blood Glucose Test Strips test blood glucose daily (E11.9) 100units E11.9 Hesham Day D.O., [facility] 06/24/2014 Asa 81 Capsules 1 tab daily Unknown Latanoprost 0.005% Solution 1 gtt ou hs Unknown B-100 Complex Tablets 1 PO D aily Unknown Moderna Covid-19 Vaccine 100mcg/0.5ML Suspension pt recieved both Unknown Medications Administered in Office Medication SIG Qnty Indications Ordering Provider Date Injection (SC)/(Im) Injection Hesham Day D.O., [facility] 01/30/2020 Injection (SC)/(Im) Injection Chiki Aldana, RPA 05/02/2010 Injection (SC)/(Im) Injection Chiki Aldana, RPA 04/29/2010 Injection (SC)/(Im) Injection Hesham Day D.O., [facility] 08/09/2009 Injection Subcutaneous Or Intramuscular Injection Hesham Day D.O., FAAFP 09/02/2008 Injection Subcutaneous Or Intramuscular Injection [facility] 2007 Injection Subcutaneous Or Intramuscular [facility]jection [facility] 08/20/2006 Injection (SC)/(Im) Injection Trino Zamora M.D. 09/30/2002 Immunizations CPT Code Status Date Vaccine Lot # [id number] Given 07/31/2019 Influenza Virus Vaccine, Quadrivalent, Slit Virus, Im Use 3Y & Up [id number] 16812 Given 09/06/2018 Influenza Virus Vaccine, Quadrivalent, Slit Virus, Im Use 3Y & Up [id number] 13144 Given 09/17/2015 Pneumococcal Immunization L0 [id number] 32588 Given 09/02/2015 Influenza Vaccin e (Fluzone) 3Yrs Of Age Or Older Medicare Plans [id number] Q2037 Given 08/20/2014 Influenza Vaccin e (Fluvirin) 3Yrs Of Age Or Older Medicare Plans 89738 Given 08/20/2014 Influenza Virus Vac. Split Virus Individuals 3 Years And Above [id number] 78777 Given 08/21/2013 Influenza Virus Vac. Split Virus Individuals 3 Years And Above [id number] 87058 Given 08/21/2013 Influenza Vaccin e (Fluzone) 3Yrs Of Age Or Older Medicare Plans 03764 Given 08/20/2012 Influenza Virus Vac. Split Virus Individuals 3 Years And Above [id number] 47947 Given 08/20/2012 Influenza Vaccin e (Fluzone) 3Yrs Of Age Or Older Medicare Plans 76331 Given 08/17/2011 Influenza Virus Vac. Split Virus Individuals 3 Years And Above [id number] 70537 Given 08/17/2011 Influenza Vaccin e (Fluzone) 3Yrs Of Age Or Older Medicare Plans 27755 Given 08/05/2010 Pneumococcal Immunization [id number] 46046 Given 08/05/2010 Influenza Virus Vac. Split Virus Individuals 3 Years And Above [id number] 14732 Given 08/09/2009 Influenza Virus Vac. Split Virus Individuals 3 Years And Above [id number] 07333 Given 09/02/2008 Influenza Virus Vac. Split Virus Individuals 3 Years And Above [id number] 02836 Given 2007 Influenza Virus Vac. Split Virus Individuals 3 Years And Above 03866 Given 2007 Influenza Virus Vac. Split Virus Individuals 3 Years And Above [id number] 34055 Given 08/20/2006 Influenza Virus Vac. Split Virus Individuals 3 Years And Above 86911 Given 09/26/2004 Pneumococcal Immunization 60757 Given 09/30/2002 Influenza Virus Vac. Split Virus Individuals 3 Years And Above 90671 Given 09/17/2001 Influenza Immunization 37185 Given 11/01/2000 Influenza Immunization 24692 Given 09/20/1999 Pneumococcal Immunization 77174 Given 09/20/1999 Influenza Immunization 24377 Given 09/27/1998 Influenza Immunization [id number] Refused 08/26/2020 Influenza Virus Vaccine, Quadrivalent, Slit Virus, Im Use 3Y & Up Vital Signs Date Vital Result Comment 07/06/2021 3:20pm BP Systolic 118 mmHg BP Diastolic 80 mmHg Body Temperature 97.3 F Heart Rate 87 /min Respiratory Rate 20 /min O2 % BldC Oximetry 94 % (On O2 @ 3LPM NC) 06/16/2021 3:00pm BP Systolic 118 mmHg BP Diastolic 70 mmHg Body Temperature 98.0 F Heart Rate 98 /min Respiratory Rate 20 /min Height 67 inches 5'7" Weight 206.00 lb [place] Body Weight 148 lb BMI (Body Mass Index) 32.3 kg/m2 O2 % BldC Oximetry 95 % (On O2 @ 3 LPM NC) Results Test Acquired Date Facility Test Result H/L Range Note CBC 07/06/2021 [facility] WBC 8.8 10E3/uL 4.1 - 10.9 1 RBC 4.24 10E6/uL 4.20 - 6.30 HGB 12.2 g/dL 12.0 - 18.0 HCT 40.3 % 37.0 - 51.0 MCV 95.0 fL 80.0 - 97.0 MCH 28.8 pg 26.0 - 32.0 MCHC 30.3 g/dL Low 31.0 - 36.0 PLT 236 10E3/uL 140 - 440 RDW-CV 15.4 % High 11.5 - 14.5 Lym% 15.0 % 10.0 - 58.5 Neut% 71.5 % 37.0 - 92.0 MXD% 13.5 % 0.1 - 24.0 Lym# 1.3 10E3/uL 0.6 - 4.1 Neut# 6.3 % 2.0 - 7.8 MXD# 1.2 10E3/uL 0.0 - 1.8 MPV 9.3 fL 9.0 - 13.0 Laboratory test finding 07/06/2021 [facility] Sedimentation Rate 31 mm/hr High 0 - 20 Laboratory test finding 07/06/2021 [facility] [place] Aerobic Bacterial Culture <pending> CBC 06/16/2021 [facility] WBC 7.2 10E3/uL 4.1 - 10.9 2 RBC 4.82 10E6/uL 4.20 - 6.30 HGB 13.5 g/dL 12.0 - 18.0 HCT 44.8 % 37.0 - 51.0 MCV 92.9 fL 80.0 - 97.0 MCH 28.0 pg 26.0 - 32.0 MCHC 30.1 g/dL Low 31.0 - 36.0 PLT 283 10E3/uL 140 - 440 RDW-CV 16.3 % High 11.5 - 14.5 Lym% 20.0 % 10.0 - 58.5 Neut% 71.0 % 37.0 - 92.0 MXD% 9.0 % 0.1 - 24.0 Lym# 1.4 10E3/uL 0.6 - 4.1 Neut# 5.2 % 2.0 - 7.8 MXD# 0.6 10E3/uL 0.0 - 1.8 MPV 11.4 fL 9.0 - 13.0 CMP 06/16/2021 [facility] Glu 160 mg/dL High 70 - 110 BUN 21 mg/dL 8 - 23 Creat 0.7 mg/dL 0.7 - 1.2 BUN/Creatinine Ratio 29.8 Calc Na 141 mmol/L 136 - 145 K 4.0 mmol/L 3.5 - 5.1 CL 99.5 mmol/L 98.0 - 107.0 Co2 35.7 mmol/L High 22.0 - 29.0 CA 9.0 mg/dL 8.6 - 10.2 TP 6.9 g/dL 6.6 - 8.7 Alb 4.1 g/dL 3.5 - 5.2 A/G Ratio 1.5 Calc Globulin 2.8 Calc Alp 85.4 U/L 40 - 129 Alt (SGPT) 16 U/L 0 - 41 Ast (Sgot) 15 U/L 0 - 40 Tbili 0.22 mg/dL 0.0 - 1.2 Osmolality-Calculated 287.5 Calc Anion Gap 10 mmol/L eGFR 106 # Calc 3 eGFR Non-Afr. Iranian 91 # Calc 4 Lipid Panel 06/16/2021 [facility] Chol 140 mg/dL 0 - 200 Trig 140 mg/dL 35 - 200 HDL 49 mg/dL 35 - 55 LDL_C 63 Calc Low 75 - 129 Cho/HDL Ratio 2.9 CALC Laboratory test finding 06/16/2021 [facility] CK 79 U/L 39 - 308 Laboratory test finding 06/16/2021 [facility] Hemoglobin A1c 7.0 % High 4.50-6.20 CBC 03/01/2021 [facility] WBC 7.0 10E3/uL 4.1 - 10.9 RBC 4.77 10E6/uL 4.20 - 6.30 HGB 11.4 g/dL Low 12.0 - 18.0 HCT 41.2 % 37.0 - 51.0 MCV 86.4 fL 80.0 - 97.0 MCH 23.9 pg Low 26.0 - 32.0 MCHC 27.7 g/dL Low 31.0 - 36.0 PLT 295 10E3/uL 140 - 440 RDW-CV 18.9 % High 11.5 - 14.5 Lym% 21.4 % 10.0 - 58.5 Neut% 71.3 % 37.0 - 92.0 MXD% 7.3 % 0.1 - 24.0 Lym# 1.5 10E3/uL 0.6 - 4.1 Neut# 5.0 % 2.0 - 7.8 MXD# 0.5 10E3/uL 0.0 - 1.8 MPV 10.8 fL 9.0 - 13.0 Comment VERIFIED Laboratory test finding 03/01/2021 [facility] CK 55 U/L 39 - 308 CMP 03/01/2021 [facility] Glu 119 mg/dL High 70 - 110 BUN 22 mg/dL 8 - 23 Creat 0.6 mg/dL Low 0.7 - 1.2 BUN/Creatinine Ratio 36.7 CALC Na 139 mmol/L 136 - 145 K 4.2 mmol/L 3.5 - 5.1 CL 100.9 mmol/L 98.0 - 107.0 Co2 32.3 mmol/L High 22.0 - 29.0 CA 8.9 mg/dL 8.6 - 10.2 TP 6.3 g/dL Low 6.6 - 8.7 Alb 4.0 g/dL 3.5 - 5.2 A/G Ratio 1.7 CALC Globulin 2.3 CALC Alp 93.0 U/L 40 - 129 Alt (SGPT) 8 U/L 0 - 41 Ast (Sgot) 11 U/L 0 - 40 Tbili 0.18 mg/dL 0.0 - 1.2 Osmolality-Calculated 282.3 CALC Anion Gap 10 mmol/L eGFR 112 # Calc 5 eGFR Non-Afr. Iranian 97 # Calc 6 Lipid Panel 03/01/2021 [facility] Chol 136 mg/dL 0 - 200 Trig 125 mg/dL 35 - 200 HDL 46 mg/dL 35 - 55 LDL_C 65 Calc Low 75 - 129 Cho/HDL Ratio 2.9 CALC Laboratory test finding 03/01/2021 [facility] Hemoglobin A1c 6.2 % 4.50-6.20 1 NORMAL RANGES Age WBC RBC HGB [...] HCT IS 5% LESS SOURCE FOR DATA: [employer] 1800 OPERATION MANUAL( AUTOMATED BLOOD COUNTS AND DIFF.) APPENDIX B-3 2 NORMAL RANGES Age WBC RBC HGB HCT [...] HCT IS 5% LESS SOURCE FOR DATA: [employer] 1800 OPERATION MANUAL( AUTOMATED BLOOD COUNTS AND [...] ADOLESCENTS REPRESENTS INDIVIDUALA AGED 2-19 YEARS EXCLUSIVE. 3 CKD-EPI 4 CKD-EPI 5 CKD-EPI 6 CKD-EPI Procedures Date Code Description Status 07/06/2021 03384 Office/Outpatient Established Mo d MDM 30-39 Min Completed 06/16/2021 55553 Office/Outpatient Established Mo d MDM 30-39 Min Completed 06/09/2021 68846 Office/Outpatient Established Mo d MDM 30-39 Min Completed 03/01/2021 90377 Office/Outpatient Established Mo d MDM 30-39 Min Completed Medical Devices Description No Information Available Encounters Type Date Location Provider Dx Diagnosis Office Visit 07/06/2021 3:15p [facility] Yuval Meyer, FAAFP M25.562 Pain in left knee M25.462 Effusion, left knee L03.116 Cellulitis of left lower doss b Office Visit 06/16/2021 3:00p [facility] Jayson Meyer, FAAFP I10 Essential (primary) hypertension E78.5 Hyperlipidemia, unspecified J44.9 Chronic obstructive pulmonar y disease, unspecified E11.9 Type 2 diabetes mellitus wit hout complications Z79.84 halfway (current) use of o ral hypoglycemic drugs I73.89 Other specified peripheral v ascular diseases Office Visit 06/09/2021 3:40p [facility] Jayson Meyer, FAAFP M79.604 Pain in right leg W10.8xxA Fall (on) (from) other stair s and steps, initial encounter Office Visit 03/01/2021 1:00p [facility] Jayson Meyer, FAAFP I10 Essential (primary) hypertension E78.5 Hyperlipidemia, unspecified J44.9 Chronic obstructive pulmonar y disease, unspecified E11.9 Type 2 diabetes mellitus wit hout complications 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 I73.89 Other specified peripheral v ascular diseases D50.9 Iron deficiency anemia, unsp ecified Assessments Date Code Description Provider 07/06/2021 M25.562 Pain in left knee Hesham anthony D.O., FAAFP 07/06/2021 M25.462 Effusion, left knee Hesham preciado D.O., FAAFP 07/06/2021 L03.116 Cellulitis of left lower limb Nick Day D.O., FAAFP 06/16/2021 I10 Essential (primary) hypertension Hesham Day D.O., FAAFP 06/16/2021 E78.5 Hyperlipidemia, unspecified Zain Day D.O., FAAFP 06/16/2021 J44.9 Chronic obstructive pulmonary di sease, unspecified Hesham Day D.O., [facility] 06/16/2021 E11.9 Type 2 diabetes mellitus without complications Hesham Day D.O., [facility] 06/16/2021 Z79.84 halfway (current) use of oral hypoglycemic drugs Hesham Day D.O., [facility] 06/16/2021 I73.89 Other specified peripheral vascu lar diseases Hesham Day D.O., [facility] 06/09/2021 M79.604 Pain in right leg Hesham anthony D.O., [facility] 06/09/2021 W10.8xxA Fall (on) (from) other stairs an d steps, initial encounter Hesham Day D.O., [facility] 03/01/2021 I10 Essential (primary) hypertension Hesham Day D.O., [facility] 03/01/2021 E78.5 Hyperlipidemia, unspecified Zain Day D.O., [facility] 03/01/2021 J44.9 Chronic obstructive pulmonary di sease, unspecified Hesham Day D.O., [facility] 03/01/2021 E11.9 Type 2 diabetes mellitus without complications Hesham Day D.O., [facility] 03/01/2021 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 Hesham Day D.O., [facility] 03/01/2021 I73.89 Other specified peripheral vascu lar diseases Hesham Day D.O., [facility] 03/01/2021 D50.9 Iron deficiency anemia, unspecif ied Hesham Day D.O., FAAFP Plan of Treatment Future Appointment(s):* 09/22/2021 1:00 pm - Hesham Day D.O., FAAFP at [facility] Functional Status Description No Information Available Mental Status Description No Information Available Referrals Refer to Dr Reason for Referral Status Appt Date [facility], [facility] glaucoma diabeti c please eval Sent [phone] [address] [phone]
--- OUTSIDE RECORDS SUMMARY | 2021-09-22 16:52 | CCD | Continuity of Care Document ---
Author Author Lalo LUX MD Organization Unknown Address [address] [place] [address], [address] [address] Phone [phone] Care Team Providers Care Upper Inspector Name Role Phone Hesham Macdonald DO AUTM [phone] Chiki Laboy AUTM [phone] Problems Active Problems Provider Date Type 2 diabetes mellitus Onset: 06/17/20 15 Essential hypertension Onset: 06/17/2015 Social History Type Date Description Comments Sex Unknown ETOH Use Denies alcohol use Tobacco Use Start: Unknown End: Unknown Patient is a former smoker Has smoked for 50 years,quit 4 years ago Allergies, Adverse Reactions, Alerts Active Allergies Criticality Reaction | Severity Comments Date Aspirin Unable to assess criticality 08/08/2021 Inactive Allergies Aspirin Unable to assess criticality 06/23/2015 NKDA Unable to assess criticality 03/20/2016 Medications Active Medications SIG Qnty Indications Ordering Provide r Date Ventolin HFA 108(90Base) mcg/Act A erosol 2 puffs as needed Unknown Ferrous Gluconate 324(38Fe) mg Tab lets Take 1 Tablet By Mouth Every Day Chiki Aldana RPA Furosemide 40mg Tablets Take 1 Tablet By Mouth Twice Daily Hesham Macdonald DO Contour Blood Glucose Test Strips Strips Use To Test Blood Sugar Twice Daily as Directed Hesham Macdonald DO Spironolactone 25mg Tablets Take 1/2 Tablet By Mouth Every Day. Maximum Daily Dose Is 1/2 Tablet. Maximum Da Hesham Macdonald DO Eliquis 5mg Tablets Take 1 Tablet By Mouth Twice Daily Hesham Macdonald DO Doxycycline Hyclate 100mg Capsules Take 1 Capsule By Mouth Twice Daily Hesham Macdonald, DO 0 Diltiazem HCL 30mg Tablets Hesham Macdonald, DO Aspirin 81mg Chewtabs Unknown Spiriva Handihaler 18mcg Capsules every day Unknown Januvia 50mg Tablets 1 by mouth every day Unknown Latanoprost 0.005% Solution 1 drop ea eye nightly Unknown Timolol Maleate 0.5% Solution Unknown Hydrochlorothiazide 25mg Tablets 1 by mouth every day Unknown Pantoprazole Sodium 40mg Tablets D R 1 by mouth every day Unknown Pravastatin Sodium 20mg Tablets 1 by mouth every night at bedtime Unknown 0 Losartan Potassium 100mg Tablets 1 by mouth every day Unknown Symbicort 80-4.5mcg/Act Aerosol 2 times a day Unknown Immunizations Description No Information Available Vital Signs Date Vital Result Comment 08/08/2021 3:55pm Body Temperature 96.9 F Height 68 inches 5'8" Weight 206.00 lb BMI (Body Mass Index) 31.3 kg/m2 10/22/2017 1:23pm Height 68 inches 5'8" stated Weight 210.00 lb stated BMI (Body Mass Index) 31.9 kg/m2 Results Description No Information Available Procedures Date Code Description Status 08/08/2021 91268 Artery Study Extremity Single Le tricia Bilateral Completed 08/08/2021 52143 X-Ray Hips Bilateral With Pelvis 3-4 Views Completed Medical Devices Description No Information Available Encounters Description No Information Available Assessments Date Code Description Provider 08/08/2021 M17.12 Unilateral primary osteoarthriti s, left knee Jayson Lux MD 08/08/2021 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, left knee Jayson Lux MD 08/08/2021 S83.8x2A Sprain of other spec ified parts of left knee, initial encounter Jayson Lux MD 08/08/2021 M16.11 Unilateral primary osteoarthriti s, right hip Jayson Lux MD Plan of Treatment 08/08/2021 - Jayson Lux MD* M17.12 Unilateral primary osteoarthritis, left knee* Follow up:* 6 months lt knee/rt hip recheck with [facility] * 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
--- OUTSIDE RECORDS SUMMARY | 2021-09-22 16:52 | CCD | Continuity of Care Document ---
Author Author Lalo DAY D.O. Organization Unknown Address [address] [place] [address] Phone [phone] Problems Active Problems Provider Date Chronic obstructive [...] smoker quit March 2014 Smoking Status Reviewed: 07/21/21 Patient is a former smoker qu it [...] Day D.O., [facility] 06/27/2018 Spironolactone 25mg Tablets take 1/2 tablet by mouth every day. maximum daily dose is 1/2 tablet 45tabs Hesham Day D.O., FAAFP 12/26/2017 Diltiazem [...] Suspension as directed Done [facility] D.O., [facility] 08/30/2017 Pantoprazole Sodium 40mg Tablets D [...] hours as needed 3units Hesham gonzalez D.O., [facility] 12/01/2014 Contour Blood Glucose Test Strips Strips use to test blood sugar twice daily as needed as directed 100units E1 1.9 Hesham Day D.O., [facility] 08/27/2014 Blood Glucose Test Strips test blood glucose daily (E11.9) 100units E11.9 Hesham Day D.O., [facility] 06/24/2014 Asa 81 Capsules 1 tab daily Unknown Latanoprost 0.005% Solution 1 gtt ou hs Unknown B-100 Complex Tablets 1 PO D aily Unknown Moderna Covid-19 Vaccine 100mcg/0.5ML Suspension pt recieved both Unknown Medications Administered in Office Medication SIG Qnty Indications Ordering Provider Date Injection (SC)/(Im) Injection Hesham Day D.O., [facility] 01/30/2020 Injection (SC)/(Im) Injection Chiki Aldana, RPA 05/02/2010 Injection (SC)/(Im) Injection Chiki Aldana, RPA 04/29/2010 Injection (SC)/(Im) Injection Hesham Day D.O., [facility] 08/09/2009 Injection Subcutaneous Or Intramuscular Injection Hesham Day D.O., [facility] 09/02/2008 Injection Subcutaneous Or Intramuscular Injection Hesham Day D.O., [facility] 2007 Injection Subcutaneous Or Intramuscular Injection Hesham Day D.O., [facility] 08/20/2006 Injection (SC)/(Im) Injection Trino Zamora M.D. 09/30/2002 Immunizations CPT Code Status Date Vaccine Lot # 22532 Given 07/21/2021 Influenza Virus Vaccine, Quadrivalent, Slit Virus, Im Use 3Y & Up [id number] 64280 Given 07/31/2019 Influenza Virus Vaccine, Quadrivalent, Slit Virus, Im Use 3Y & Up [id number] 10086 Given 09/06/2018 Influenza Virus Vaccine, Quadrivalent, Slit Virus, Im Use 3Y & Up [id number] 70136 Given 09/17/2015 Pneumococcal Immunization L0 [id number] 92564 Given 09/02/2015 Influenza Vaccin e (Fluzone) 3Yrs Of Age Or Older Medicare Plans [id number] 04462 Given 08/20/2014 Influenza Virus Vac. Split Virus Individuals 3 Years And Above [id number] Q2037 Given 08/20/2014 Influenza Vaccin e (Fluvirin) 3Yrs Of Age Or Older Medicare Plans 04620 Given 08/21/2013 Influenza Vaccin e (Fluzone) 3Yrs Of Age Or Older Medicare Plans 26283 Given 08/21/2013 Influenza Virus Vac. Split Virus Individuals 3 Years And Above [id number] 76185 Given 08/20/2012 Influenza Virus Vac. Split Virus Individuals 3 Years And Above [id number] 71755 Given 08/20/2012 Influenza Vaccin e (Fluzone) 3Yrs Of Age Or Older Medicare Plans 25536 Given 08/17/2011 Influenza Virus Vac. Split Virus Individuals 3 Years And Above [id number] 22509 Given 08/17/2011 Influenza Vaccin e (Fluzone) 3Yrs Of Age Or Older Medicare Plans 21206 Given 08/05/2010 Pneumococcal Immunization [id number] 77199 Given 08/05/2010 Influenza Virus Vac. Split Virus Individuals 3 Years And Above [id number] 67335 Given 08/09/2009 Influenza Virus Vac. Split Virus Individuals 3 Years And Above [id number] 36228 Given 09/02/2008 Influenza Virus Vac. Split Virus Individuals 3 Years And Above [id number] 65468 Given 2007 Influenza Virus Vac. Split Virus Individuals 3 Years And Above 79167 Given 2007 Influenza Virus Vac. Split Virus Individuals 3 Years And Above [id number] 57586 Given 08/20/2006 Influenza Virus Vac. Split Virus Individuals 3 Years And Above 22757 Given 09/26/2004 Pneumococcal Immunization 61643 Given 09/30/2002 Influenza Virus Vac. Split Virus Individuals 3 Years And Above 13605 Given 09/17/2001 Influenza Immunization 12828 Given 11/01/2000 Influenza Immunization 24973 Given 09/20/1999 Pneumococcal Immunization 80004 Given 09/20/1999 Influenza Immunization 21617 Given 09/27/1998 Influenza Immunization 14331 Refused 08/26/2020 Influenza Virus Vaccine, Quadrivalent, Slit Virus, Im Use 3Y & Up Vital Signs Date Vital Result Comment 07/21/2021 11:41am BP Systolic 110 mmHg BP Diastolic 60 mmHg Body Temperature 97.6 F Heart Rate 88 /min Respiratory Rate 20 /min Height 67 inches 5'7" Weight 206.00 lb [place] Body Weight 148 lb BMI (Body Mass Index) 32.3 kg/m2 O2 % BldC Oximetry 94 % (On O2 @ 3 LPM NC) 07/06/2021 3:20pm BP Systolic 118 mmHg BP Diastolic 80 mmHg Body Temperature 97.3 F Heart Rate 87 /min Respiratory Rate 20 /min O2 % BldC Oximetry 94 % (On O2 @ 3LPM NC) Results Test Acquired Date Facility Test [...] Rate 31 mm/hr High 0 - 20 Aerobic Bacterial Culture 07/06/2021 [facility] [place] Aerobic Bacterial Culture Final report 2 , 3 Result 1 Mixed skin mely 4 CBC 06/16/2021 [facility] WBC 7.2 10E3/uL 4.1 - 10.9 5 RBC 4.82 10E6/uL 4.20 - 6.30 HGB [...] Gap 10 mmol/L eGFR 106 # Calc 6 eGFR Non-Afr. Central African 91 # Calc 7 Lipid Panel 06/16/2021 [facility] Chol 140 mg/dL 0 - 200 Trig 140 mg/dL 35 - 200 HDL 49 mg/dL 35 - 55 LDL_C 63 Calc Low 75 - 129 Cho/HDL Ratio 2.9 CALC Laboratory test finding 06/16/2021 [facility] CK 79 U/L 39 - 308 Laboratory test finding 06/16/2021 [facility] Hemoglobin A1c 7.0 % High 4.50-6.20 CBC [...] Gap 10 mmol/L eGFR 112 # Calc 8 eGFR Non-Afr. Central African 97 # Calc 9 Lipid Panel 03/01/2021 [facility] Chol 136 mg/dL 0 - 200 Trig 125 mg/dL 35 - 200 HDL 46 mg/dL 35 - 55 LDL_C 65 Calc Low 75 - 129 Cho/HDL Ratio 2.9 CALC Laboratory test finding 03/01/2021 [facility] Hemoglobin A1c 6.2 % 4.50-6.20 [...] HCT IS 5% LESS SOURCE FOR DATA: [employer] 1800 OPERATION MANUAL( AUTOMATED BLOOD COUNTS AND DIFF.) APPENDIX B-3 2 SRC:LT LOWER LEG CX 3 Source of Specimen: LT LOWER LEG CX 4 Mixed skin mely Source of Specimen: LT LOWER LEG CX 5 NORMAL RANGES Age WBC RBC HGB HCT [...] HCT IS 5% LESS SOURCE FOR DATA: [employer] 1800 OPERATION MANUAL( AUTOMATED BLOOD COUNTS AND [...] ADOLESCENTS REPRESENTS INDIVIDUALA AGED 2-19 YEARS EXCLUSIVE. 6 CKD-EPI 7 CKD-EPI 8 CKD-EPI 9 CKD-EPI Procedures Date Code Description Status 07/21/2021 13793 Office/Outpatient Established Mo d MDM 30-39 Min Completed 07/06/2021 88901 Office/Outpatient Established Mo d MDM 30-39 Min Completed 06/16/2021 25213 Office/Outpatient Established Mo d MDM 30-39 Min Completed 06/09/2021 92340 Office/Outpatient Established Mo d MDM 30-39 Min Completed 03/01/2021 97121 Office/Outpatient Established Mo d MDM 30-39 Min Completed Medical Devices Description No Information Available Encounters Type Date Location Provider Dx Diagnosis Office Visit 07/21/2021 11:30a [facility] Jayson Meyer, FAAFP I87.2 Venous insufficiency (chronic) (peripher al) R60.0 Localized edema Z23 Encounter for immunization Office Visit 07/06/2021 3:15p [place] [facility] Hesham Day D.O ., FAAFP M25.562 Pain in left knee M25.462 Effusion, left knee L03.116 Cellulitis of left lower doss b Office Visit 06/16/2021 3:00p [facility] Jayson Meyer., FAAFP I10 Essential (primary) hypertension E78.5 Hyperlipidemia, unspecified J44.9 Chronic obstructive pulmonar y disease, unspecified E11.9 Type 2 diabetes mellitus wit hout complications Z79.84 senior living (current) use of o ral hypoglycemic drugs I73.89 Other specified peripheral v ascular diseases Office Visit 06/09/2021 3:40p [facility] Josefina Meyer. Aydee., FAAFP M79.604 Pain in right leg W10.8xxA Fall (on) (from) other stair s and steps, initial encounter Office Visit 03/01/2021 1:00p [facility] Josefina Meyer. Aydee., FAAFP I10 Essential (primary) hypertension E78.5 Hyperlipidemia, unspecified J44.9 Chronic obstructive pulmonar y disease, unspecified E11.9 Type 2 diabetes mellitus wit hout complications Z79.84 senior living (current) use of o ral hypoglycemic drugs I73.89 Other specified peripheral v ascular diseases D50.9 Iron deficiency anemia, unsp ecified Assessments Date Code Description Provider 07/21/2021 I87.2 Venous insufficiency (chronic) ( peripheral) Hesham Day D.O., [facility] 07/21/2021 R60.0 Localized edema Hesham Day D.O., [facility] 07/21/2021 Z23 Encounter for immunization Marga Day D.O., [facility] 07/06/2021 M25.562 Pain in left knee Hesham anthony D.O., [facility] 07/06/2021 M25.462 Effusion, left knee Hesham preciado D.O., [facility] 07/06/2021 L03.116 Cellulitis of left lower limb Nick Day D.O., [facility] 06/16/2021 I10 Essential (primary) hypertension Hesham Day D.O., [facility] 06/16/2021 E78.5 Hyperlipidemia, unspecified Zain Day D.O., [facility] 06/16/2021 J44.9 Chronic obstructive pulmonary di sease, unspecified Hesham Day D.O., [facility] 06/16/2021 E11.9 Type 2 diabetes mellitus without complications Hesham Day D.O., [facility] 06/16/2021 Z79.84 senior living (current) use of oral hypoglycemic drugs Hesham Day D.O., [facility] 06/16/2021 I73.89 Other specified peripheral vascu lar diseases Hesham Day D.O., [facility] 06/09/2021 M79.604 Pain in right leg Hesham anthony D.O., [facility] 06/09/2021 W10.8xxA Fall (on) (from) other stairs an d steps, initial encounter Hesham Day D.O., [facility] 03/01/2021 I10 Essential (primary) hypertension Hesham Day D.O., [facility] 03/01/2021 E78.5 Hyperlipidemia, unspecified Zain Day D.O., [facility] 03/01/2021 J44.9 Chronic obstructive pulmonary di sease, unspecified Hesham Day D.O., [facility] 03/01/2021 E11.9 Type 2 diabetes mellitus without complications H[facility]ham Day D.O., [facility] 03/01/2021 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 edema / chronic venous insu ffiency with weeping left leg please eval Sent [address] [place] [address] [phone] [facility], [facility] glaucoma diabeti c please eval Sent [phone] [address] [phone]
--- OUTSIDE RECORDS SUMMARY | 2021-09-22 16:52 | CCD | Continuity of Care Document ---
Author Author Lalo DAY D.O. Organization Unknown Address [address] [place] [id number] Phone [phone] Problems Active Problems Provider Date Chronic obstructive [...] Suspension as directed Done Hesham Day D.O., [facility] 08/30/2017 Pantoprazole Sodium 40mg Tablets D R [...] hours as needed 3units Hesham gonzalez D.O., [facility] 12/01/2014 Contour Blood Glucose Test Strips Strips use to test blood sugar twice daily as needed as directed 100units E1 1.9 Hesham Day D.O., [facility] 08/27/2014 Blood Glucose Test Strips test blood glucose daily (E11.9) 100units E11.9 Hesham Day D.O., [facility] 06/24/2014 Asa 81 Capsules 1 tab daily Unknown Latanoprost 0.005% Solution 1 gtt ou hs Unknown B-100 Complex Tablets 1 PO D aily Unknown Moderna Covid-19 Vaccine 100mcg/0.5ML Suspension pt recieved both Unknown Medications Administered in Office Medication SIG Qnty Indications Ordering Provider Date Injection (SC)/(Im) Injection Hesham Day D.O., [facility] 01/30/2020 Injection (SC)/(Im) Injection Chiki Aldana, RPA 05/02/2010 Injection (SC)/(Im) Injection Chiki Aldana, RPA 04/29/2010 Injection (SC)/(Im) Injection Hesham Day D.O., [facility] 08/09/2009 Injection Subcutaneous Or Intramuscular Injection Hesham Day D.O., [facility] 09/02/2008 Injection Subcutaneous Or Intramuscular Injection Hesham Day D.O., [facility] 2007 Injection Subcutaneous Or Intramuscular Injection Hesham Day D.O., [facility] 08/20/2006 Injection (SC)/(Im) Injection Trino Zamora M.D. 09/30/2002 Immunizations CPT Code Status Date Vaccine Lot # [id number] Given 07/31/2019 Influenza Virus Vaccine, Quadrivalent, Slit Virus, Im Use 3Y & Up [id number] 57680 Given 09/06/2018 Influenza Virus Vaccine, Quadrivalent, Slit Virus, Im Use 3Y & Up [id number] 78948 Given 09/17/2015 Pneumococcal Immunization L0 60746 66494 Given 09/02/2015 Influenza Vaccin e (Fluzone) 3Yrs Of Age Or Older Medicare Plans [id number] Q2037 Given 08/20/2014 Influenza Vaccin e (Fluvirin) 3Yrs Of Age Or Older Medicare Plans 16936 Given 08/20/2014 Influenza Virus Vac. Split Virus Individuals 3 Years And Above [id number] 60309 Given 08/21/2013 Influenza Virus Vac. Split Virus Individuals 3 Years And Above [id number] 14139 Given 08/21/2013 Influenza Vaccin e (Fluzone) 3Yrs Of Age Or Older Medicare Plans 85771 Given 08/20/2012 Influenza Virus Vac. Split Virus Individuals 3 Years And Above [id number] 42762 Given 08/20/2012 Influenza Vaccin e (Fluzone) 3Yrs Of Age Or Older Medicare Plans 74475 Given 08/17/2011 Influenza Virus Vac. Split Virus Individuals 3 Years And Above [id number] 19695 Given 08/17/2011 Influenza Vaccin e (Fluzone) 3Yrs Of Age Or Older Medicare Plans 97467 Given 08/05/2010 Pneumococcal Immunization [id number] 83158 Given 08/05/2010 Influenza Virus Vac. Split Virus Individuals 3 Years And Above [id number] 41160 Given 08/09/2009 Influenza Virus Vac. Split Virus Individuals 3 Years And Above [id number] 34913 Given 09/02/2008 Influenza Virus Vac. Split Virus Individuals 3 Years And Above [id number] 07952 Given 2007 Influenza Virus Vac. Split Virus Individuals 3 Years And Above 43901 Given 2007 Influenza Virus Vac. Split Virus Individuals 3 Years And Above [id number] 18823 Given 08/20/2006 Influenza Virus Vac. Split Virus Individuals 3 Years And Above 33736 Given 09/26/2004 Pneumococcal Immunization 11918 Given 09/30/2002 Influenza Virus Vac. Split Virus Individuals 3 Years And Above 20887 Given 09/17/2001 Influenza Immunization 10837 Given 11/01/2000 Influenza Immunization 62589 Given 09/20/1999 Pneumococcal Immunization 88600 Given 09/20/1999 Influenza Immunization 13178 Given 09/27/1998 Influenza Immunization 03192 Refused 08/26/2020 Influenza Virus Vaccine, Quadrivalent, Slit [...] Height 67 inches 5'7" Weight 206.00 lb [place] Body Weight 148 lb BMI (Body Mass [...] eGFR 106 # Calc 3 eGFR Non-Afr. Singaporean 91 # Calc 4 Lipid Panel 06/16/2021 [facility] Chol 140 mg/dL 0 - 200 Trig 140 mg/dL 35 - 200 HDL 49 mg/dL 35 - 55 LDL_C 63 Calc Low 75 - 129 Cho/HDL Ratio 2.9 CALC Laboratory test finding 06/16/2021 [facility] CK 79 U/L 39 - 308 Laboratory test finding 06/16/2021 [facility] Hemoglobin A1c 7.0 % High 4.50-6.20 [...] eGFR 112 # Calc 5 eGFR Non-Afr. Singaporean 97 # Calc 6 Lipid Panel 03/01/2021 [...] HCT IS 5% LESS SOURCE FOR DATA: [employer] 1800 OPERATION MANUAL( AUTOMATED BLOOD COUNTS AND [...] HCT IS 5% LESS SOURCE FOR DATA: [employer] 1800 OPERATION MANUAL( AUTOMATED BLOOD COUNTS AND [...] CKD-EPI Procedures Date Code Description Status 07/06/2021 47079 Office/Outpatient Established Mo d MDM 30-39 Min Completed 06/16/2021 81044 Office/Outpatient Established Mo d MDM 30-39 Min Completed 06/09/2021 33244 Office/Outpatient Established Mo d MDM 30-39 Min Completed 03/01/2021 05452 Office/Outpatient Established Mo d MDM 30-39 Min Completed Medical Devices Description No Information Available Encounters Type Date Location Provider Dx Diagnosis Office Visit 07/06/2021 3:15p [place] [facility] Yuval Meyer, FAAFP M25.562 Pain in left knee M25.462 Effusion, left knee L03.116 Cellulitis of left lower doss b Office Visit 06/16/2021 3:00p [place] [facility] Jayson Meyer, FAAFP I10 Essential (primary) hypertension E78.5 Hyperlipidemia, unspecified J44.9 Chronic obstructive pulmonar y disease, unspecified E11.9 Type 2 diabetes mellitus wit hout complications Z79.84 jail (current) use of o ral hypoglycemic drugs I73.89 Other specified peripheral v ascular diseases Office Visit 06/09/2021 3:40p [facility] Jayson Meyer, FAAFP M79.604 Pain in right leg W10.8xxA Fall (on) (from) other stair s and steps, initial encounter Office Visit 03/01/2021 1:00p [facility] Jayson Meyer, FAAFP I10 Essential (primary) hypertension E78.5 Hyperlipidemia, unspecified J44.9 Chronic obstructive pulmonar y disease, unspecified E11.9 Type 2 diabetes mellitus wit hout complications 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 [...] pulmonary di sease, unspecified Hesham Day D.O., [facility] 06/16/2021 E11.9 Type 2 diabetes mellitus without complications Hesham Day D.O., [facility] 06/16/2021 Z79.84 jail (current) use of oral hypoglycemic drugs Hesham Day D.O., [facility] 06/16/2021 I73.89 Other specified peripheral vascu lar diseases Hesham Day D.O., [facility] 06/09/2021 M79.604 Pain in right leg Hesham anthony D.O., [facility] 06/09/2021 W10.8xxA Fall (on) (from) other stairs an d steps, initial encounter Hesham Day D.O., [facility] 03/01/2021 I10 Essential (primary) hypertension Hesham Day D.O., [facility] 03/01/2021 E78.5 Hyperlipidemia, unspecified Zain Day D.O., [facility] 03/01/2021 J44.9 Chronic obstructive pulmonary di sease, unspecified Hesham Day D.O., [facility] 03/01/2021 E11.9 Type 2 diabetes mellitus without complications Hesham aDy D.O., [facility] 03/01/2021 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 Hesham Day D.O., [facility] 03/01/2021 I73.89 Other specified peripheral vascu lar diseases Hesham Day D.O., [facility] 03/01/2021 D50.9 Iron deficiency anemia, unspecif ied Hesham Day D.O., [facility] Plan of Treatment Future Appointment(s):* 09/22/2021 1:00 pm - Hesham Day D.O., [facility] at [facility] Functional Status Description No Information Available Mental Status Description No Information Available Referrals Refer to Dr Reason for Referral Status Appt Date [facility], [facility] glaucoma diabeti c please eval Sent [phone] [address] [phone]
--- OUTSIDE RECORDS SUMMARY | 2021-09-22 16:52 | CCD | Continuity of Care Document ---
Author Author Lalo LUX MD Organization Unknown Address [address] [place] [address], [address] [address] Phone [phone] Care Team Providers Care Optician Apprentice Name Role Phone Hesham Macdonald DO AUTM [phone] Chiki Laboy AUTM [phone] Problems Active Problems Provider Date Type 2 [...] Available Procedures Date Code Description Status 08/08/2021 99514 Office/Outpatient New Moderate M DM 45-59 Minutes Completed 08/08/2021 12043 X-Ray Hips Bilateral With Pelvis 3-4 Views Completed Medical Devices Description No Information Available Encounters Type Date Location Provider Dx Diagnosis Office Visit 08/08/2021 2:45p [place] Jayson Lux MD S8 3.8x2A Sprain of other specified parts of left knee, init encntr M11.262 Other chondrocalcinosis, lef t knee Z96.642 Presence of left artificial hip joint 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, right hip Assessments Date Code Description Provider 08/08/2021 S83.8x2A Sprain of other spec ified parts of left knee, initial encounter Jayson Lux MD 08/08/2021 M11.262 Other chondrocalcinosis, left kn ee Jayson Lux MD 08/08/2021 Z96.642 Presence of left artificial hip joint Jayson Lux MD 08/08/2021 M16.11 Unilateral primary osteoarthriti s, right hip Jayson Lux MD Plan of Treatment 08/08/2021 - Jayson Lux MD* S83.8x2A Sprain of other specified parts of left knee, initial encounter * M11.262 Other chondrocalcinosis, left knee * Z96.642 Presence of left artificial hip joint * M16.11 Unilateral primary osteoarthritis, right hip* Follow up:* 6 months lt knee/rt hip recheck with D[facility] Functional Status Description No Information Available Mental Status Description No Information Available Referrals Description No Information Available
--- OUTSIDE RECORDS SUMMARY | 2021-09-22 16:52 | CCD | Continuity of Care Document ---
Author Author Lalo DAY D.O. Organization Unknown Address [address] [place] [id number] Phone [phone] Problems Active Problems Provider Date Chronic obstructive [...] D.O., FAAFP Onset: 04/02/2014 Microscopic hematuria Hesham aDy D.O., FAAFP Onset: Note: w/u negative Glaucoma [...] Suspension as directed Done [facility]2017 Pantoprazole Sodium 40mg Tablets D R [...] hours as needed 3units [facility]onz[facility] 12/01/2014 Contour Blood Glucose Test Strips Strips use to test blood sugar twice daily as needed as directed 100units E1 1.9 Hesham Day D.O., FAAFP 08/27/2014 Blood Glucose Test Strips test blood glucose daily (E11.9) 100units E11.9 Hesham Day D.O., [facility] 06/24/2014 Asa 81 Capsules 1 tab daily Unknown Latanoprost 0.005% Solution 1 gtt ou hs Unknown B-100 Complex Tablets 1 PO D aily Unknown Moderna Covid-19 Vaccine 100mcg/0.5ML Suspension pt recieved both Unknown Medications Administered in Office Medication SIG Qnty Indications Ordering Provider Date Injection (SC)/(Im) Injection Hesham Day D.O., [facility] 01/30/2020 Injection (SC)/(Im) Injection Chiki Aldana, RPA 05/02/2010 Injection (SC)/(Im) Injection Chiki Aldana, RPA 04/29/2010 Injection (SC)/(Im) Injection Hesham Day D.O., [facility] 08/09/2009 Injection Subcutaneous Or Intramuscular Injection Hesham Day D.O., [facility]FP 09/02/2008 Injection Subcutaneous Or Intramuscular Injection [facility] 2007 Injection Subcutaneous Or Intramuscular Injection [facility] 08/20/2006 Injection (SC)/(Im) Injection Trino Zamora M.D. 09/30/2002 Immunizations CPT Code Status Date Vaccine Lot # [id number] Given 07/31/2019 Influenza Virus Vaccine, Quadrivalent, Slit Virus, Im Use 3Y & Up [id number] 74271 Given 09/06/2018 Influenza Virus Vaccine, Quadrivalent, Slit Virus, Im Use 3Y & Up [id number] 63989 Given 09/17/2015 Pneumococcal Immunization L0 25044 06413 Given 09/02/2015 Influenza Vaccin e (Fluzone) 3Yrs Of Age Or Older Medicare Plans [id number] Q2037 Given 08/20/2014 Influenza Vaccin e (Fluvirin) 3Yrs Of Age Or Older Medicare Plans 60690 Given 08/20/2014 Influenza Virus Vac. Split Virus Individuals 3 Years And Above [id number] 40402 Given 08/21/2013 Influenza Virus Vac. Split Virus Individuals 3 Years And Above [id number] 72220 Given 08/21/2013 Influenza Vaccin e (Fluzone) 3Yrs Of Age Or Older Medicare Plans 24612 Given 08/20/2012 Influenza Virus Vac. Split Virus Individuals 3 Years And Above [id number] 26298 Given 08/20/2012 Influenza Vaccin e (Fluzone) 3Yrs Of Age Or Older Medicare Plans 65443 Given 08/17/2011 Influenza Virus Vac. Split Virus Individuals 3 Years And Above [id number] 34918 Given 08/17/2011 Influenza Vaccin e (Fluzone) 3Yrs Of Age Or Older Medicare Plans 24163 Given 08/05/2010 Pneumococcal Immunization [id number] 14910 Given 08/05/2010 Influenza Virus Vac. Split Virus Individuals 3 Years And Above [id number] 19540 Given 08/09/2009 Influenza Virus Vac. Split Virus Individuals 3 Years And Above [id number] 41379 Given 09/02/2008 Influenza Virus Vac. Split Virus Individuals 3 Years And Above [id number] 24165 Given 2007 Influenza Virus Vac. Split Virus Individuals 3 Years And Above 35014 Given 2007 Influenza Virus Vac. Split Virus Individuals 3 Years And Above [id number] 50357 Given 08/20/2006 Influenza Virus Vac. Split Virus Individuals 3 Years And Above 46558 Given 09/26/2004 Pneumococcal Immunization 37934 Given 09/30/2002 Influenza Virus Vac. Split Virus Individuals 3 Years And Above 87676 Given 09/17/2001 Influenza Immunization 39010 Given 11/01/2000 Influenza Immunization 84521 Given 09/20/1999 Pneumococcal Immunization 23130 Given 09/20/1999 Influenza Immunization 91830 Given 09/27/1998 Influenza Immunization 63451 Refused 08/26/2020 Influenza Virus Vaccine, Quadrivalent, Slit [...] Height 67 inches 5'7" Weight 206.00 lb [place] Body Weight 148 lb BMI (Body Mass [...] eGFR 106 # Calc 3 eGFR Non-Afr. Kazakh 91 # Calc 4 Lipid Panel 06/16/2021 [facility] Chol 140 mg/dL 0 - 200 Trig 140 mg/dL 35 - 200 HDL 49 mg/dL 35 - 55 LDL_C 63 Calc Low 75 - 129 Cho/HDL Ratio 2.9 CALC Laboratory test finding 06/16/2021 [facility] CK 79 U/L 39 - 308 Laboratory test finding 06/16/2021 [facility] Hemoglobin A1c 7.0 % High [...] eGFR 112 # Calc 5 eGFR Non-Afr. Kazakh 97 # Calc 6 Lipid Panel 03/01/2021 [...] HCT IS 5% LESS SOURCE FOR DATA: [employer] 1800 OPERATION MANUAL( AUTOMATED BLOOD COUNTS AND [...] HCT IS 5% LESS SOURCE FOR DATA: [employer] 1800 OPERATION MANUAL( AUTOMATED BLOOD COUNTS AND [...] CKD-EPI Procedures Date Code Description Status 07/06/2021 13683 Office/Outpatient Established Mo d MDM 30-39 Min Completed 06/16/2021 38028 Office/Outpatient Established Mo d MDM 30-39 Min Completed 06/09/2021 94832 Office/Outpatient Established Mo d MDM 30-39 Min Completed 03/01/2021 26038 Office/Outpatient Established Mo d MDM 30-39 Min Completed Medical Devices Description No Information Available Encounters Type Date Location Provider Dx Diagnosis Office Visit 07/06/2021 3:15p [place] [facility] Yuval Meyer, FAAFP M25.562 Pain in left knee M25.462 Effusion, left knee L03.116 Cellulitis of left lower doss b Office Visit 06/16/2021 3:00p [place] [facility] Jayson Meyer, FAAFP I10 Essential (primary) hypertension E78.5 Hyperlipidemia, unspecified J44.9 Chronic obstructive pulmonar y disease, unspecified E11.9 Type 2 diabetes mellitus wit hout complications Z79.84 MCC (current) use of o ral hypoglycemic drugs I73.89 Other specified peripheral v ascular diseases Office Visit 06/09/2021 3:40p [place] [facility] Jayson Meyer, FAAFP M79.604 Pain in right leg W10.8xxA Fall (on) (from) other stair s and steps, initial encounter Office Visit 03/01/2021 1:00p [place] [facility] Jayson Meyer, FAAFP I10 Essential (primary) hypertension E78.5 Hyperlipidemia, unspecified J44.9 Chronic obstructive pulmonar y disease, unspecified E11.9 Type 2 diabetes mellitus wit hout complications Z79.84 terminal manager (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) use of o 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 hypoglycemic drugs [...] pulmonary di sease, unspecified Hesham Day D.O., [facility] 06/16/2021 E11.9 Type 2 diabetes mellitus without complications Hesham Day D.O., [facility] 06/16/2021 Z79.84 MCC (current) use of oral hypoglycemic drugs Hesham Day D.O., [facility] 06/16/2021 I73.89 Other specified peripheral vascu lar diseases Hesham Day D.O., [facility] 06/09/2021 M79.604 Pain in right leg Hesham anthony D.O., [facility] 06/09/2021 W10.8xxA Fall (on) (from) other stairs an d steps, initial encounter Hesham Day D.O., [facility] 03/01/2021 I10 Essential (primary) hypertension Hesham Day D.O., [facility] 03/01/2021 E78.5 Hyperlipidemia, unspecified Zain Day D.O., [facility] 03/01/2021 J44.9 Chronic obstructive pulmonary di sease, unspecified Hesham Day D.O., [facility] 03/01/2021 E11.9 Type 2 diabetes mellitus without complications Hesham Day D.O., [facility] 03/01/2021 Z79.84 terminal manager (current) use of oral hypoglycemic drugs Hesham Day D.O., [facility] 03/01/2021 I73.89 Other specified peripheral vascu lar diseases Hesham Day D.O., [facility] 03/01/2021 D50.9 Iron deficiency anemia, unspecif ied Hesham Day D.O., FAAFP Plan of Treatment Future Appointment(s):* 09/22/2021 1:00 pm - Hesham Day D.O., FAAFP at [place] [facility] Functional Status Description No Information Available Mental Status Description No Information Available Referrals Refer to Dr Reason for Referral Status Appt Date [facility], [facility] glaucoma diabeti c please eval Sent [phone] [address] [phone]
--- OUTSIDE RECORDS SUMMARY | 2021-09-22 16:52 | CCD | Continuity of Care Document ---
Author Author Lalo DAY D.O. Organization Unknown Address [address] [place] [address] Phone [phone] Problems Active Problems Provider Date Chronic obstructive [...] smoker quit March 2014 Smoking Status Reviewed: 06/16/21 Patient is a former smoker qu it [...] Suspension as directed Done [facility]., [facility] 08/30/2017 Pantoprazole Sodium 40mg Tablets D R [...] hours as needed 3units Hesham gonzalez D.O., [facility] 12/01/2014 Contour Blood Glucose Test Strips Strips use to test blood sugar twice daily as needed as directed 100units E1 1.9 Hesham Day D.O., FAAFP 08/27/2014 Blood Glucose Test Strips test blood glucose daily (E11.9) 100units E11.9 Hesham Day D.O., [facility] 06/24/2014 Asa 81 Capsules 1 tab daily Unknown Latanoprost 0.005% Solution 1 gtt ou hs Unknown B-100 Complex Tablets 1 PO D aily Unknown Moderna Covid-19 Vaccine 100mcg/0.5ML Suspension pt recieved both Unknown Medications Administered in Office Medication SIG Qnty Indications Ordering Provider Date Injection (SC)/(Im) Injection Hesham Day D.O., [facility] 01/30/2020 Injection (SC)/(Im) Injection Chiki Aldana, RPA 05/02/2010 Injection (SC)/(Im) Injection Chiki Aldana, RPA 04/29/2010 Injection (SC)/(Im) Injection Hesham Day D.O., FAAFP 08/09/2009 Injection Subcutaneous Or Intramuscular Injection Hesham Day D.O., [facility]FP 09/02/2008 Injection Subcutaneous Or Intramuscular Injection [facility] D.O., [facility] 2007 Injection Subcutaneous Or Intramuscular Injection [facility]esham Day D.O., [facility] 08/20/2006 Injection (SC)/(Im) Injection Trino Zamora M.D. 09/30/2002 Immunizations CPT Code Status Date Vaccine Lot # [id number] Given 07/31/2019 Influenza Virus Vaccine, Quadrivalent, Slit Virus, Im Use 3Y & Up [id number] 47538 Given 09/06/2018 Influenza Virus Vaccine, Quadrivalent, Slit Virus, Im Use 3Y & Up [id number] 50714 Given 09/17/2015 Pneumococcal Immunization L0 68999 78961 Given 09/02/2015 Influenza Vaccin e (Fluzone) 3Yrs Of Age Or Older Medicare Plans [id number] Q2037 Given 08/20/2014 Influenza Vaccin e (Fluvirin) 3Yrs Of Age Or Older Medicare Plans 43654 Given 08/20/2014 Influenza Virus Vac. Split Virus Individuals 3 Years And Above [id number] 46980 Given 08/21/2013 Influenza Virus Vac. Split Virus Individuals 3 Years And Above [id number] 94100 Given 08/21/2013 Influenza Vaccin e (Fluzone) 3Yrs Of Age Or Older Medicare Plans 06250 Given 08/20/2012 Influenza Virus Vac. Split Virus Individuals 3 Years And Above [id number] 26863 Given 08/20/2012 Influenza Vaccin e (Fluzone) 3Yrs Of Age Or Older Medicare Plans 15895 Given 08/17/2011 Influenza Virus Vac. Split Virus Individuals 3 Years And Above [id number] 71916 Given 08/17/2011 Influenza Vaccin e (Fluzone) 3Yrs Of Age Or Older Medicare Plans 35060 Given 08/05/2010 Pneumococcal Immunization [id number] 32784 Given 08/05/2010 Influenza Virus Vac. Split Virus Individuals 3 Years And Above [id number] 90449 Given 08/09/2009 Influenza Virus Vac. Split Virus Individuals 3 Years And Above [id number] 77843 Given 09/02/2008 Influenza Virus Vac. Split Virus Individuals 3 Years And Above [id number] 04559 Given 2007 Influenza Virus Vac. Split Virus Individuals 3 Years And Above 76748 Given 2007 Influenza Virus Vac. Split Virus Individuals 3 Years And Above [id number] 64982 Given 08/20/2006 Influenza Virus Vac. Split Virus Individuals 3 Years And Above 34246 Given 09/26/2004 Pneumococcal Immunization 05319 Given 09/30/2002 Influenza Virus Vac. Split Virus Individuals 3 Years And Above 26979 Given 09/17/2001 Influenza Immunization 18717 Given 11/01/2000 Influenza Immunization 21041 Given 09/20/1999 Pneumococcal Immunization 00965 Given 09/20/1999 Influenza Immunization 80403 Given 09/27/1998 Influenza Immunization 43748 Refused 08/26/2020 Influenza Virus Vaccine, Quadrivalent, Slit [...] Height 67 inches 5'7" Weight 206.00 lb [place] Body Weight 148 lb BMI (Body Mass [...] Culture 07/06/2021 [facility] [place] Aerobic Bacterial Culture Preliminary repo <SEE NOTE> 2, 3 Result 1 (SEE NOTE) 4 CBC 06/16/2021 [facility] WBC 7.2 10E3/uL [...] eGFR 106 # Calc 6 eGFR Non-Afr. Russian 91 # Calc 7 Lipid Panel 06/16/2021 [facility] Chol 140 mg/dL 0 - 200 Trig 140 mg/dL 35 - 200 HDL 49 mg/dL 35 - 55 LDL_C 63 Calc Low 75 - 129 Cho/HDL Ratio 2.9 CALC Laboratory test finding 06/16/2021 [facility] CK 79 U/L 39 - 308 Laboratory test finding 06/16/2021 [facility] Hemoglobin A1c 7.0 % High 4.50-6.20 [...] eGFR 112 # Calc 8 eGFR Non-Afr. Russian 97 # Calc 9 Lipid Panel 03/01/2021 [facility] Chol 136 mg/dL 0 - 200 Trig 125 mg/dL 35 - 200 HDL 46 mg/dL 35 - 55 LDL_C 65 Calc Low 75 - 129 Cho/HDL Ratio 2.9 CALC Laboratory test finding 03/01/2021 [facility] Hemoglobin A1c 6.2 % [...] HCT IS 5% LESS SOURCE FOR DATA: [employer] 1800 OPERATION MANUAL( AUTOMATED BLOOD COUNTS AND DIFF.) APPENDIX B-3 2 SRC:LT LOWER LEG CX 3 Preliminary report Source of Specimen: LT LOWER LEG CX 4 Source of Specimen: LT LOWER LEG CX Specimen has been received and testing has been initiated. 5 NORMAL RANGES Age WBC RBC HGB [...] HCT IS 5% LESS SOURCE FOR DATA: [employer] 1800 OPERATION MANUAL( AUTOMATED BLOOD COUNTS AND [...] 9 CKD-EPI Procedures Date Code Description Status 07/06/2021 53675 Office/Outpatient Established Mo d MDM 30-39 Min Completed 06/16/2021 87808 Office/Outpatient Established Mo d MDM 30-39 Min Completed 06/09/2021 03071 Office/Outpatient Established Mo d MDM 30-39 Min Completed 03/01/2021 92856 Office/Outpatient Established Mo d MDM 30-39 Min Completed Medical Devices Description No Information Available Encounters Type Date Location Provider Dx Diagnosis Office Visit 07/06/2021 3:15p [place] [facility] Yuval Meyer, FAAFP M25.562 Pain in left knee M25.462 Effusion, left knee L03.116 Cellulitis of left lower doss b Office Visit 06/16/2021 3:00p [place] [facility] Jayson Meyer, FAAFP I10 Essential (primary) hypertension E78.5 Hyperlipidemia, unspecified J44.9 Chronic obstructive pulmonar y disease, unspecified E11.9 Type 2 diabetes mellitus wit hout complications Z79.84 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9 Type 2 diabetes mellitus without complications Hesham Day D.O., FAAFP 06/16/2021 Z79.84 prison (current) use of oral hypoglycemic drugs Hesham Day D.O., FAAFP 06/16/2021 I73.89 Other specified peripheral vascu lar diseases [facility] D.O., [facility] 06/09/2021 M79.604 Pain in right leg Hesham anthony D.O., FAAFP 06/09/2021 W10.8xxA Fall (on) (from) other stairs an d steps, initial encounter Hesham Day D.O., FAAFP 03/01/2021 I10 Essential (primary) hypertension Hesham Day D.O., [facility]FP 03/01/2021 E78.5 Hyperlipidemia, unspecified Zain Day D.O., [facility]FP 03/01/2021 J44.9 Chronic obstructive pulmonary di sease, unspecified Hesham Day D.O., [facility]FP 03/01/2021 E11.9 Type 2 diabetes mellitus without complications Hesham Day D.O., FAAFP 03/01/2021 Z79.84 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ral hypoglycemic drugs Hesham Day D.O., [facility] 03/01/2021 I73.89 Other specified peripheral vascu lar diseases Hesham Day D.O., FAAFP 03/01/2021 D50.9 Iron deficiency anemia, unspecif ied Hesham Day D.O., [facility] Plan of Treatment Future Appointment(s):* 09/22/2021 1:00 pm - Hesham Day D.O., FAAFP at [place] [facility] Functional Status Description No Information Available Mental Status Description No Information Available Referrals Refer to Dr Reason for Referral Status Appt Date [facility], [facility] glaucoma diabeti c please eval Sent [phone] [facility] [address] [id number] [phone]
--- OUTSIDE RECORDS SUMMARY | 2021-09-22 16:52 | CCD | Continuity of Care Document ---
Author Author Lalo DAY D.O. Organization Unknown Address [address] [place] [id number] Phone [phone] Problems Active Problems Provider Date Chronic obstructive [...] as directed Done [facility]/2017 Pantoprazole Sodium 40mg Tablets [...] as needed 3units [facility] 12/01/2014 Contour Blood Glucose Test Strips Strips use to test blood sugar twice daily as needed as directed 100units E1 1.9 Hesham Day D.O., [facility] 08/27/2014 Blood Glucose Test Strips test blood glucose daily (E11.9) 100units E11.9 Hesham Day D.O., [facility] 06/24/2014 Asa 81 Capsules 1 tab daily Unknown Latanoprost 0.005% Solution 1 gtt ou hs Unknown B-100 Complex Tablets 1 PO D aily Unknown Moderna Covid-19 Vaccine 100mcg/0.5ML Suspension pt recieved both Unknown Medications Administered in Office Medication SIG Qnty Indications Ordering Provider Date Injection (SC)/(Im) Injection Hesham Day D.O., [facility] 01/30/2020 Injection (SC)/(Im) Injection Chiki Aldana, RPA 05/02/2010 Injection (SC)/(Im) Injection Chiki Adlana, RPA 04/29/2010 Injection (SC)/(Im) Injection Hesham Day D.O., [facility] 08/09/2009 Injection Subcutaneous Or Intramuscular Injection Hesham Day D.O., [facility] 09/02/2008 Injection Subcutaneous Or Intramuscular Injection [facility] 2007 Injection Subcutaneous Or Intramuscular Injection [facility] 08/20/2006 Injection (SC)/(Im) Injection Trino Zamora M.D. 09/30/2002 Immunizations CPT Code Status Date Vaccine Lot # 32091 Given 07/21/2021 Influenza Virus Vaccine, Quadrivalent, Slit Virus, Im Use 3Y & Up [id number] 58207 Given 07/31/2019 Influenza Virus Vaccine, Quadrivalent, Slit Virus, Im Use 3Y & Up [id number] 76709 Given 09/06/2018 Influenza Virus Vaccine, Quadrivalent, Slit Virus, Im Use 3Y & Up [id number] 67361 Given 09/17/2015 Pneumococcal Immunization L0 [id number] 33619 Given 09/02/2015 Influenza Vaccin e (Fluzone) 3Yrs Of Age Or Older Medicare Plans [id number] 44145 Given 08/20/2014 Influenza Virus Vac. Split Virus Individuals 3 Years And Above [id number] Q2037 Given 08/20/2014 Influenza Vaccin e (Fluvirin) 3Yrs Of Age Or Older Medicare Plans 39129 Given 08/21/2013 Influenza Vaccin e (Fluzone) 3Yrs Of Age Or Older Medicare Plans 59394 Given 08/21/2013 Influenza Virus Vac. Split Virus Individuals 3 Years And Above [id number] 85986 Given 08/20/2012 Influenza Virus Vac. Split Virus Individuals 3 Years And Above [id number] 13056 Given 08/20/2012 Influenza Vaccin e (Fluzone) 3Yrs Of Age Or Older Medicare Plans 02184 Given 08/17/2011 Influenza Virus Vac. Split Virus Individuals 3 Years And Above [id number] 15414 Given 08/17/2011 Influenza Vaccin e (Fluzone) 3Yrs Of Age Or Older Medicare Plans 20200 Given 08/05/2010 Pneumococcal Immunization [id number] 76269 Given 08/05/2010 Influenza Virus Vac. Split Virus Individuals 3 Years And Above [id number] 58884 Given 08/09/2009 Influenza Virus Vac. Split Virus Individuals 3 Years And Above [id number] 16199 Given 09/02/2008 Influenza Virus Vac. Split Virus Individuals 3 Years And Above [id number] 55697 Given 2007 Influenza Virus Vac. Split Virus Individuals 3 Years And Above 32530 Given 2007 Influenza Virus Vac. Split Virus Individuals 3 Years And Above [id number] 37027 Given 08/20/2006 Influenza Virus Vac. Split Virus Individuals 3 Years And Above 46205 Given 09/26/2004 Pneumococcal Immunization 19159 Given 09/30/2002 Influenza Virus Vac. Split Virus Individuals 3 Years And Above 59787 Given 09/17/2001 Influenza Immunization 64373 Given 11/01/2000 Influenza Immunization 58142 Given 09/20/1999 Pneumococcal Immunization 66273 Given 09/20/1999 Influenza Immunization 67422 Given 09/27/1998 Influenza Immunization 49987 Refused 08/26/2020 Influenza Virus Vaccine, Quadrivalent, Slit Virus, Im Use 3Y & Up Vital Signs Date Vital Result Comment 07/21/2021 11:41am BP Systolic 110 mmHg BP Diastolic 60 mmHg Body Temperature 97.6 F Heart Rate 88 /min Respiratory Rate 20 /min Height 67 inches 5'7" Weight 206.00 lb [place] Body Weight 148 lb BMI (Body Mass Index) 32.3 kg/m2 O2 % BldC Oximetry 94 % 07/06/2021 3:20pm BP Systolic 118 mmHg BP [...] eGFR 106 # Calc 6 eGFR Non-Afr. Nepalese 91 # Calc 7 Lipid Panel 06/16/2021 [facility] Chol 140 mg/dL 0 - 200 Trig 140 mg/dL 35 - 200 HDL 49 mg/dL 35 - 55 LDL_C 63 Calc Low 75 - 129 Cho/HDL Ratio 2.9 CALC Laboratory test finding 06/16/2021 [facility] CK 79 U/L 39 - 308 Laboratory test finding 06/16/2021 [facility] Hemoglobin A1c 7.0 % High 4.50-6.20 CBC [...] eGFR 112 # Calc 8 eGFR Non-Afr. Nepalese 97 # Calc 9 Lipid Panel 03/01/2021 [...] HCT IS 5% LESS SOURCE FOR DATA: [employer] 1800 OPERATION MANUAL( AUTOMATED BLOOD COUNTS AND [...] HCT IS 5% LESS SOURCE FOR DATA: [employer] 1800 OPERATION MANUAL( AUTOMATED BLOOD COUNTS AND [...] CKD-EPI Procedures Date Code Description Status 07/06/2021 64333 Office/Outpatient Established Mo d MDM 30-39 Min Completed 06/16/2021 57442 Office/Outpatient Established Mo d MDM 30-39 Min Completed 06/09/2021 25609 Office/Outpatient Established Mo d MDM 30-39 Min Completed 03/01/2021 73498 Office/Outpatient Established Mo d MDM 30-39 Min Completed Medical Devices Description No Information Available Encounters Type Date Location Provider Dx Diagnosis Office Visit 07/06/2021 3:15p [facility] Yuval Meyer, FAAFP M25.562 Pain in left knee M25.462 Effusion, left knee L03.116 Cellulitis of left lower doss b Office Visit 06/16/2021 3:00p [facility] Jayson Meyer, FAAFP I10 Essential (primary) hypertension E78.5 Hyperlipidemia, unspecified J44.9 Chronic obstructive pulmonar y disease, unspecified E11.9 Type 2 diabetes mellitus wit hout complications Z79.84 halfway (current) use of o ral hypoglycemic drugs I73.89 Other specified peripheral v ascular diseases Office Visit 06/09/2021 3:40p [facility] Jayson Meyer, FAAFP M79.604 Pain in right leg W10.8xxA Fall (on) (from) other stair s and steps, initial encounter Office Visit 03/01/2021 1:00p [facility] Jayson Meyer, FAAFP I10 Essential (primary) [...] of left lower limb Nick Day D.O., [facility] 06/16/2021 I10 Essential (primary) hypertension Hesham Day D.O., [facility] 06/16/2021 E78.5 Hyperlipidemia, unspecified Zain Day D.O., [facility] 06/16/2021 J44.9 Chronic obstructive pulmonary di sease, unspecified Hesham Day D.O., [facility] 06/16/2021 E11.9 Type 2 diabetes mellitus without complications Hesham Day D.O., [facility] 06/16/2021 Z79.84 terminal gauger (current) use of oral hypoglycemic drugs Hesham Day D.O., [facility] 06/16/2021 I73.89 Other specified peripheral vascu lar diseases Hesham Day D.O., [facility] 06/09/2021 M79.604 Pain in right leg Hesham anthony D.O., [facility] 06/09/2021 W10.8xxA Fall (on) (from) other stairs an d steps, initial encounter Hesham Day D.O., [facility] 03/01/2021 I10 Essential (primary) hypertension Hesham Day D.O., [facility] 03/01/2021 E78.5 Hyperlipidemia, unspecified Zain Day D.O., [facility] 03/01/2021 J44.9 Chronic obstructive pulmonary di sease, unspecified Hesham Day D.O., [facility] 03/01/2021 E11.9 Type 2 diabetes mellitus without complications Hesham Day D.O., [facility] 03/01/2021 Z79.84 terminal gauger (current) use of oral hypoglycemic drugs Hesham Day D.O., [facility] 03/01/2021 I73.89 Other specified peripheral vascu lar diseases Hesham Day D.O., [facility] 03/01/2021 D50.9 Iron deficiency anemia, unspecif ied Hesham Day D.O., [facility] Plan of Treatment Future Appointment(s):* 09/22/2021 1:00 pm - Hesham Day D.O., [facility] at [facility] Functional Status Description No Information Available Mental Status Description No Information Available Referrals Refer to Dr Reason for Referral Status Appt Date [facility], [facility] glaucoma diabeti c please eval Sent [phone] [facility] [address], [place] [id number] [phone]
--- OUTSIDE RECORDS SUMMARY | 2021-09-22 16:54 | CCD ---
Author Author [facility] Organization [facility] Address Unknown Phone Unavailable Care Team Providers Care Slot Machine Floor Person Name Role Phone AMBROSIO, Blanca KATE Unavailable Unavailable LETTIERE, Blanca KATE Unavailable Unavailable LETTIERE, Blanca SOLANO PA Unavailable Unavailable LETTIERE, Blanca SOLANO PA Unavailable Unavailable LETTIERE, Blanca SOLANO PA Unavailable Unavailable LETTIERE, Blanca SOLANO PA Unavailable Unavailable LETTIERE, Blanca SOLANO PA Unavailable Unavailable LETTIERE, Blanca SOLANO PA Unavailable Unavailable LETTIERE, Blanca SOLANO PA Unavailable Unavailable LETTIERE, Blanca SOLANO PA Unavailable Unavailable LETTIERE, Blanca SOLANO PA Unavailable Unavailable LETTIERE, Blanca SOLANO PA Unavailable Unavailable LETTIERE, Blanca SOLANO PA Unavailable Unavailable LETTIERE, Blanca SOLANO PA Unavailable Unavailable LETTIERE, Blanca SOLANO PA Unavailable Unavailable LETTIERE, A XIOMARA PA Unavailable Unavailable LETTIERE, A XIOMARA PA Unavailable Unavailable LETTIERE, A XIOMARA PA Unavailable Unavailable LETTIERE, A XIOMARA PA Unavailable Unavailable LETTIERE, Blanca SOLANO PA Unavailable Unavailable LETTIERE, Blanca SOLANO PA Unavailable Unavailable LETTIERE, Blanca SOLANO PA Unavailable Unavailable LETTIERE, Blanca SOLANO PA Unavailable Unavailable LETTIERE, Blanca SOLANO PA Unavailable Unavailable LETTIERE, Blanca SOLANO PA Unavailable Unavailable LETTIERE, A XIOMARA PA Unavailable Unavailable LETTIERE, Blanca SOLANO PA Unavailable Unavailable LETTIERE, Blanca SOLANO PA Unavailable Unavailable LETTIERE, Blanca SOLANO PA Unavailable Unavailable LETTIERE, Blanca SOLANO PA Unavailable Unavailable LETTIERE, Blanca SOLANO PA Unavailable Unavailable Allan Willard MD Unavailable Unavailable Allan Willard MD Unavailable Unavailable Allan Willard MD Unavailable Unavailable Allan Willard MD Unavailable Unavailable Allan Willard MD Unavailable Unavailable Allan Willard MD Unavailable Unavailable PedroShazia frances MD Unavailable Unavailable PedroShazia frances MD Unavailable Unavailable PedroShazia frances MD Unavailable Unavailable PedroShazia frances MD Unavailable Unavailable PedroShazia frances MD Unavailable Unavailable PedroShazia frances MD Unavailable Unavailable PedroShazia frances MD Unavailable Unavailable PedroShazia frances MD Unavailable Unavailable PedroShazia MD Unavailable Unavailable PedroShazia frances MD Unavailable Unavailable PedroShazia frances MD Unavailable Unavailable PedroShazia MD Unavailable Unavailable PedroShazia MD Unavailable Unavailable PedroShazia frances MD Unavailable Unavailable PedroShazia frances MD Unavailable Unavailable PedroShazia frances MD Unavailable Unavailable PedroShazia frances MD Unavailable Unavailable PedroShazia frances MD Unavailable Unavailable PedroShazia frances MD Unavailable Unavailable PedroShazia frances MD Unavailable Unavailable PedroShazia frances MD Unavailable Unavailable PedroShazia frances MD Unavailable Unavailable PedroShazia frances MD Unavailable Unavailable PedroShazia frances MD Unavailable Unavailable PedroShazia frances MD Unavailable Unavailable PedroShazia frances MD Unavailable Unavailable PedroShazia frances MD Unavailable Unavailable PedroShazia frances MD Unavailable Unavailable PedroShazia frances MD Unavailable Unavailable PedroShazia frances MD Unavailable Unavailable PedroShazia frances MD Unavailable Unavailable PedroShazia frances MD Unavailable Unavailable PedroShazia frances MD Unavailable Unavailable PedroShazia frances MD Unavailable Unavailable PedroShazia frances MD Unavailable Unavailable PedroShazia frances MD Unavailable Unavailable PedroShazia frances MD Unavailable Unavailable PedroShazia frances MD Unavailable Unavailable PedroShazia frances MD Unavailable Unavailable PedroShazia frances MD Unavailable Unavailable PedroShazia MD Unavailable Unavailable PedroShazia MD Unavailable Unavailable Fish, J Hesham Unavailable Unavailable [...] Unavailable Unavailable Fish, J Hesham Unavailable Unavailable Huang Augustine, Blanca Ribera MD, FACS Unavailable Unavailable Huang Augustine, Blanca Ribera MD, FACS Unavailable Unavailable Huang Augustine, Blanca Ribera MD, FACS Unavailable Unavailable Huang Augustine, Blanca Ribera MD, FACS Unavailable Unavailable Huang Augustine, Blanca Ribera MD, FACS Unavailable Unavailable Huang Augustine, Blanca Ribera MD, FACS Unavailable Unavailable Huang Augustine, Blanca Ribera MD, FACS Unavailable Unavailable Huang Augustine, Blanca Ribera MD, FACS Unavailable Unavailable Huang Augustine, Blanca Ribera MD, FACS Unavailable Unavailable Huang Augustine, Blanca Ribera MD, FACS Unavailable Unavailable Huang Augustine, Blanca Ribera MD, FACS Unavailable Unavailable Huang Augustine, Blanca Ribera MD, FACS Unavailable Unavailable Huang Augustine, Blanca Ribera MD, FACS Unavailable Unavailable Huang Augustine, Blanca Ribera MD, FACS Unavailable Unavailable Huang Augustine, Blanca Ribera MD, FACS Unavailable Unavailable Huang Augustine, Blanca Ribera MD, FACS Unavailable Unavailable Huang Augustine, Blanca Ribera MD, FACS Unavailable Unavailable Huang Augustine, Blanca Ribera MD, FACS Unavailable Unavailable Huang Augustine, Blanca Ribera MD, FACS Unavailable Unavailable Huang Augustine, Blanca Ribera MD, FACS Unavailable Unavailable Huang Augustine, Blanca Ribera MD, FACS Unavailable Unavailable Huang Augustine, Blanca Ribera MD, FACS Unavailable Unavailable Huang Augustine, Blanca Ribera MD, FACS Unavailable Unavailable Huang Augustine, Blanca Ribera MD, FACS Unavailable Unavailable Huang Augustine, Blanca Ribera MD, FACS Unavailable Unavailable Huang Augustine, Blanca Ribera MD, FACS Unavailable Unavailable Huang Augustine, Blanca Ribera MD, FACS Unavailable Unavailable Huang Augustine, Blanca Ribera MD, FACS Unavailable Unavailable Huang Augustine, Blanca Ribera MD, FACS Unavailable Unavailable Huang Augustine, Blanca Ribera MD, FACS Unavailable Unavailable Huang Augustine, Blanca Ribera MD, FACS Unavailable Unavailable Huang Augustine, Blanca Ribera MD, FACS Unavailable Unavailable Huang Augustine, Blanca Ribera MD, FACS Unavailable Unavailable Huang Augustine, Blanca Ribera MD, FACS Unavailable Unavailable Huang Augustien, Blanca Ribera MD, FACS Unavailable Unavailable Huang Augustine, Blanca Ribera MD, FACS Unavailable Unavailable Huang Augustine, Blanca Ribera MD, FACS Unavailable Unavailable Huang Augustine, Blanca Ribera MD, FACS Unavailable Unavailable Huang Augustine, Blanca Ribera MD, FACS Unavailable Unavailable Jovan, Josefina Solano PA Unavailable Unavailable Jovan, Josefina Solano PA Unavailable Unavailable Jovan, Josefina Solano PA Unavailable Unavailable Jovan, Josefina Solano PA Unavailable Unavailable Jovan, D Xiomara PA Unavailable Unavailable Jovan, D Xiomara PA Unavailable Unavailable Jovan, D Xiomara PA Unavailable Unavailable Jovan, D Xiomara PA Unavailable Unavailable Jovan, D Xiomara PA Unavailable Unavailable Jovan, D Xiomara PA Unavailable Unavailable Jovan, D Xiomara PA Unavailable Unavailable Jovan, D Xiomara PA Unavailable Unavailable Jovan, D Xiomara PA Unavailable Unavailable Jovan, D Xiomara PA Unavailable Unavailable Jovan, D Xiomara PA Unavailable Unavailable Jovan, D Xiomara PA Unavailable Unavailable Jovan, D Xiomara PA Unavailable Unavailable Jovan, D Xiomara PA Unavailable Unavailable Jovan, D Xiomara PA Unavailable Unavailable Jovan, D Xiomara PA Unavailable Unavailable Jovan, D Xiomara PA Unavailable Unavailable Jovan, D Xiomara PA Unavailable Unavailable Jovan, D Xiomara PA Unavailable Unavailable Jovan, D Xiomara PA Unavailable Unavailable Jovan, D Xiomara PA Unavailable Unavailable Jovan, D Xiomara PA Unavailable Unavailable Jovan, D Xiomara PA Unavailable Unavailable Jovan, D Xiomraa PA Unavailable Unavailable Jovan, D Xiomara PA Unavailable Unavailable Jovan, D Xiomara PA Unavailable Unavailable Jovan, D Xiomara PA Unavailable Unavailable Jovan, D Xiomara PA Unavailable Unavailable Jovan, D Xiomara PA Unavailable Unavailable Jovan, D Xiomara PA Unavailable Unavailable Jovan, D Xiomara PA Unavailable Unavailable Jovan, D Xiomara PA Unavailable Unavailable Jovan, D Xiomara PA Unavailable Unavailable Jovan, D Xiomara PA Unavailable Unavailable Jovan, D Xiomara PA Unavailable Unavailable Jovan, D Xiomara PA Unavailable Unavailable Jovan, D Xiomara PA Unavailable Unavailable Jovan, D Xiomara PA Unavailable Unavailable Jovan, D Xiomara PA Unavailable Unavailable Jovan, D Xiomara PA Unavailable Unavailable Jovan, D Xiomara PA Unavailable Unavailable Jovan, D Xiomara PA Unavailable Unavailable Jovan, D Xiomara PA Unavailable Unavailable Jovan, D Xiomara PA Unavailable Unavailable Jovan, D Xiomara PA Unavailable Unavailable Jovan, D Xiomara PA Unavailable Unavailable Jovan, D Xiomara PA Unavailable Unavailable Jovan, D Xiomara PA Unavailable Unavailable Jovan, D Xiomara PA Unavailable Unavailable Jovan, D Xiomara PA Unavailable Unavailable Jovan, D Xiomara PA Unavailable Unavailable Jovan, D Xiomara PA Unavailable Unavailable Jovan, D Xiomara PA Unavailable Unavailable Jovan, D Xiomara PA Unavailable Unavailable Jovan, D Xiomara PA Unavailable Unavailable Jovan, D Xiomara PA Unavailable Unavailable Jovan, D Xiomara PA Unavailable Unavailable Jovan, D Xiomara PA Unavailable Unavailable Jovan, D Xiomara PA Unavailable Unavailable Jovan, D Xiomara PA Unavailable Unavailable Jovan, D Xiomara PA Unavailable Unavailable Jovan, D Xiomara PA Unavailable Unavailable Jovan, D Xiomara PA Unavailable Unavailable Jovan, D Xiomara PA Unavailable Unavailable Martin, N Adonis ORACLE ENDECA CONSULTANT Unavailable Unavailable Selin, N Adonis ORACLE ENDECA CONSULTANT Unavailable Unavailable Martin, N Adonis ORACLE ENDECA CONSULTANT Unavailable Unavailable Martin, N Adonis ORACLE ENDECA CONSULTANT Unavailable Unavailable Martin, N Adonis ORACLE ENDECA CONSULTANT Unavailable Unavailable Selin, N Adonis ORACLE ENDECA CONSULTANT Unavailable Unavailable Selin, N Adonis ORACLE ENDECA CONSULTANT Unavailable Unavailable Selin, N Adonis ORACLE ENDECA CONSULTANT Unavailable Unavailable Selin, N Adonis ORACLE ENDECA CONSULTANT Unavailable Unavailable Selin, N Adonis ORACLE ENDECA CONSULTANT Unavailable Unavailable Selin, N Adonis ORACLE ENDECA CONSULTANT Unavailable Unavailable Martin, N Adonis ORACLE ENDECA CONSULTANT Unavailable Unavailable Martin, N Adonis ORACLE ENDECA CONSULTANT Unavailable Unavailable Selin, N Adonis ORACLE ENDECA CONSULTANT Unavailable Unavailable Martin, N Adonis ORACLE ENDECA CONSULTANT Unavailable Unavailable Martin, N Adonis ORACLE ENDECA CONSULTANT Unavailable Unavailable Selin, N Adonis ORACLE ENDECA CONSULTANT Unavailable Unavailable Martin, N Adonis ORACLE ENDECA CONSULTANT Unavailable Unavailable Selin, N Adonis ORACLE ENDECA CONSULTANT Unavailable Unavailable Martin, N Adonis ORACLE ENDECA CONSULTANT Unavailable Unavailable Selin, N Adonis ORACLE ENDECA CONSULTANT Unavailable Unavailable Selin, N Adonis ORACLE ENDECA CONSULTANT Unavailable Unavailable Selin, N Adonis ORACLE ENDECA CONSULTANT Unavailable Unavailable Selin, N Adonis ORACLE ENDECA CONSULTANT Unavailable Unavailable Martin, N Adonis ORACLE ENDECA CONSULTANT Unavailable Unavailable Martin, N Adonis ORACLE ENDECA CONSULTANT Unavailable Unavailable Martin, N Adonis ORACLE ENDECA CONSULTANT Unavailable Unavailable Martin, N Adonis ORACLE ENDECA CONSULTANT Unavailable Unavailable Selin, N Adonis ORACLE ENDECA CONSULTANT Unavailable Unavailable Martin, N Adonis ORACLE ENDECA CONSULTANT Unavailable Unavailable Martin, N Adonis ORACLE ENDECA CONSULTANT Unavailable Unavailable Selin, N Adonis ORACLE ENDECA CONSULTANT Unavailable Unavailable Selin, N Adonis ORACLE ENDECA CONSULTANT Unavailable Unavailable Josefina Lux MD Unavailable Unavailable Josefina Lux MD Unavailable Unavailable Josefina Lux MD Unavailable Unavailable Josefina Lux MD Unavailable Unavailable Josefina Lux MD Unavailable Unavailable Josefina Lux MD Unavailable Unavailable Josefina Lux MD Unavailable Unavailable Josefina Lux MD Unavailable Unavailable Josefina Lux MD Unavailable Unavailable Josefina Lux MD Unavailable Unavailable Josefina Lux MD Unavailable Unavailable Josefina Lux MD Unavailable Unavailable Josefina Lux MD Unavailable Unavailable VaneenenaamJosefina MD Unavailable Unavailable Vaneenenaam, Josefina Beltran MD Unavailable Unavailable Vaneenenaam, Josefina Beltran MD Unavailable Unavailable Vaneenenaam, Josefina Beltran MD Unavailable Unavailable Vaneenenaam, Josefina Beltran MD Unavailable Unavailable Vaneenenaam, Josefina Beltran MD Unavailable Unavailable Vaneenenaam, Josefina Beltran MD Unavailable Unavailable Vaneenenaam, Josefina Beltran MD Unavailable Unavailable Vaneenenaam, Josefina Beltran MD Unavailable Unavailable Vaneenenaam, Josefina Beltran MD Unavailable Unavailable Vaneenenaam, Josefina Beltran MD Unavailable Unavailable Vaneenenaam, Josefina Beltran MD Unavailable Unavailable Vaneenenaam, Josefina Beltran MD Unavailable Unavailable Vaneenenaam, Josefina Beltran MD Unavailable Unavailable Vaneenenaam, Josefina Beltran MD Unavailable Unavailable Vaneenenaam, Josefina Beltran MD Unavailable Unavailable Vaneenenaam, Josefina Beltran MD Unavailable Unavailable Vaneenenaam, Josefina Beltran MD Unavailable Unavailable Vaneenkatinaam, Josefina Beltran MD Unavailable Unavailable Vaneenkatinaam, Josefina Beltran MD Unavailable Unavailable Vaneenkatinaam, Josefina Beltran MD Unavailable Unavailable Vaneenkatinaam, Josefina Beltran MD Unavailable Unavailable Vaneenkatinaam, Josefina Beltran MD Unavailable Unavailable Vaneenenaam, Josefina Beltran MD Unavailable Unavailable Vaneenenaam, Josefina Beltran MD Unavailable Unavailable Vaneenkatinaam, Josefina Beltran MD Unavailable Unavailable Vaneenchana, Josefina Beltran MD Unavailable Unavailable Vaneenkatinaam, Josefina Beltran MD Unavailable Unavailable Vaneenkatinaam, Josefina Beltran MD Unavailable Unavailable Vaneenkatinaam, Josefina Beltran MD Unavailable Unavailable Vaneenkatinaam, Josefina Beltran MD Unavailable Unavailable Vaneenkatinaam, Josefina Beltran MD Unavailable Unavailable Vaneenkatinaam, Josefina Beltran MD Unavailable Unavailable Fish, J Hesham Unavailable Unavailable [...] Unavailable Unavailable Fish, J Hesham Unavailable Unavailable James Joy MD Unavailable Unavailable [...] Unavailable Unavailable James Joy MD Unavailable Unavailable Guanaco, Jessica PA Unavailable Unavailable Guanaco, Jessica PA Unavailable Unavailable Guanaco, Jessica PA Unavailable Unavailable Guanaco, Jessica PA Unavailable Unavailable Guanaco, Jessica PA Unavailable Unavailable Guanaco, Jessica PA Unavailable Unavailable Guanaco, Jessica PA Unavailable Unavailable Guanaco, Jessica PA Unavailable Unavailable Guanaco, Jessica PA Unavailable Unavailable Guanaco, Jessica PA Unavailable Unavailable Guanaco, Jessica PA Unavailable Unavailable Guanaco, Jessica PA Unavailable Unavailable Guanaco, Jessica PA Unavailable Unavailable Guaanco, Jessica PA Unavailable Unavailable Guanaco, Jessica PA Unavailable Unavailable Guanaco, Jessica PA Unavailable Unavailable Guanaco, Jessica PA Unavailable Unavailable Guanaco, Jessica PA Unavailable Unavailable Guanaco, Jessica PA Unavailable Unavailable Guanaco, Jessica PA Unavailable Unavailable Guanaco, Jessica PA Unavailable Unavailable Guanaco, Jessica PA Unavailable Unavailable Guanaco, Jessica PA Unavailable Unavailable Guanaco, Jessica PA Unavailable Unavailable Guanaco, Jessica PA Unavailable Unavailable Guanaco, Jessica PA Unavailable Unavailable Guanaco, Jessica PA Unavailable Unavailable Guanaco, Jessica PA Unavailable Unavailable Guanaco, Jessica PA Unavailable Unavailable Guanaco, Jessica PA Unavailable Unavailable Guanaco, Jessica PA Unavailable Unavailable Guanaco, Jessica PA Unavailable Unavailable Guanaco, Jessica PA Unavailable Unavailable Guanaco, Jessica PA Unavailable Unavailable Guanaco, Jessica PA Unavailable Unavailable Guanaco, Jessica PA Unavailable Unavailable Guanaco, Jessica PA Unavailable Unavailable Guanaco, Jessica PA Unavailable Unavailable Guanaco, Jessica PA Unavailable Unavailable Guanaco, Jessica PA Unavailable Unavailable Guanaco, Jessica PA Unavailable Unavailable Guanaco, Jessica PA Unavailable Unavailable Guanaco, Jesscia PA Unavailable Unavailable Guanaco, Jessica PA Unavailable Unavailable Guanaco, Jessica PA Unavailable Unavailable Guanaco, Jessica PA Unavailable Unavailable Guanaco, Jessica PA Unavailable Unavailable Guanaco, Jessica PA Unavailable Unavailable Guanaco, Jessica PA Unavailable Unavailable Re-disclosure Warning The records that [...] is protected by Article 27-F of the [facility] Public Health law. If you continue you may have access to information: Regarding HIV / AIDS; Provided by facilities licensed or operated by the [facility] Office of Mental Health; or Provided by the [facility] Office for People With Developmental Disabilities. If such information is present, then the following [facility] mandated warning applies: This information [...] NOT sufficient authorization for further disc losure. Allergies and Adverse Reactions Type Description Substance Reaction Status Data Source(s ) Allergy to substance No Known Allergies No known allergies (situation ) PAUL (Bacilio Augustine MD [facility]) Drug Allergy NKDA NKDA [facility] ([facility]) Family History Family Member Name Family Member Gender Family Member Status Date o f Status Description Data Source(s) Unknown Male Problem [facility] ([facility] () Unknown Female Problem [facility] ([facility] Unknown Unknown Problem [facility] ([facility], [facility]) [facility] Unknown Problem [facility] ([facility], [facility]) father Unknown Female Problem [facility] ([facility]) Unknown Female Problem [facility] ([facility]) Unknown Female Problem [facility] ([facility]) Unknown Female Problem [facility] ([facility]) Encounters Encounter Providers Location Date Indications Data Source(s ) Outpatient Attender: Hesham [facility] [place] [facility] 09/16/2021 01:45:0 0 PM EDT [facility] ([facility] Outpatient Attender: Bacilio Alvarez MDConsultant: Hesham Fis h 09/15/2021 11:25:00 AM EDT - [facility] Alvarez MDConsultant: Hesham Fis h 09/08/2021 11:33:00 AM EDT - 09/08/[facility] Jessica KATE Main Office 09/05/2021 02:30:00 P M EDT [facility] ([facility]) Outpatient Attender: Bacilio Alvarez MDConsultant: Hesham Fis h 08/30/2021 11:31:00 AM EDT 08/30/2021 [facility] Josefina Lux MD Physical Therap y 08/08/2021 02:45:00 PM EDT [facility] Attender: Hesham [facility] [place] [facility] 07/21/2021 11:30:0 0 AM EDT [facility] ([facility] Outpatient Attender: H[facility]ham [facility] [place] [facility] 07/06/2021 03:15:0 0 PM EDT [facility] ([facility] Outpatient Attender: XIOMARA newelly 07/01/2021 04:15:00 PM EDT [facility] ([facility], [facility]) Outpatient Attender: Hesham [place] [facility] 06/16/2021 03:00:0 0 PM EDT [facility] ([facility] Emergency Attender: Allan Willard MDConsultant: Hesham Macdonald 06/09/2021 06:05:00 PM EDT - 06/09/2021 10:32:00 PM EDT [facility] Patient discharged. Outpatient Attender: [facility] [place] [facility] 06/09/2021 03:40:0 0 PM EDT [facility] ([facility] Outpatient<td ID="encounterTypeDescripti [email or web address]">NEW PATIENT WITH REFERRAL</td><td>Bacilio Rosen MD, [facility]</td><td>Bacilio Rosen MD [facility]</td><td>05/05/2021</td><td>11:47AM</td><td>1:08PM</td><td><content ID="encounterDiagnosisID0-0">Taking Medication For Diabetes Long-term Use of Oral Hypoglycemics</content>, <content ID="encounterDiagnosisID0-1">Cataract Senile Cortical Bilateral</content>, <content ID="encounterDiagnosisID0-2">Dry Eye Syndrome Both Eyes</content>, <content ID="encounterDiagnosisID0-3">History of Nicotine Dependence</content>, <content ID="encounterDiagnosisID0-4"> Essential Hypertension</content>, <content ID="encounterDiagnosisID0- 5">Retinopathy Hypertensive Both Eyes</content>, <content ID="encounterDiagnosisID0-6">Vitreous Disorders Degeneration</content>, <content ID="encounterDiagnosisID0-7">Dermatochalasis</content>, <content ID="encounterDiagnosisID0-8">Diabetes Mellitus Type 2 Without Complication</content>, <content ID="encounterDiagnosisID0-9">Cataract Senile Nuclear</content>, <content ID="encounterDiagnosisID0-10">Borderline Glaucoma Open Angle with Borderline Findings Both Eyes</content></td> Attender: Bacilio Augustine MD, FACS Bacilio Rosen MD [facility] 05/05/2021 11:47:00 AM EDT - 05/05/2021 01:08:00 PM EDT Borderline Glaucoma Open Angle with Bord corbin Findings Both EyesCataract Senile NuclearDiabetes Mellitus Type 2 Without ComplicationDermatochalasisVitreous Disorders DegenerationRetinopathy Hyperten sive Both EyesEssential HypertensionHistory of Nicotine DependenceDry Eye Syndrome Both EyesCataract Senile Cortical BilateralTaking Medication For Diabetes Long-term Use of Oral Hypoglycemics PAUL (Bacilio Augustine MD [facility]) Borderline Glaucoma Open Angle with Bord corbin Findings Both Eyes Cataract Senile Nuclear Diabetes Mellitus Type 2 Without Complic ation Dermatochalasis Vitreous Disorders Degeneration Retinopathy Hypertensive Both Eyes Essential Hypertension History of Nicotine Dependence Dry Eye Syndrome Both Eyes Cataract Senile Cortical Bilateral Taking Medication For Diabetes Long-term Use of Oral Hypoglycemics Outpatient Attender: Alvaro Pruett/Balaji/Caleb/Jackie escalante 04/13/2021 03:00:00 PM [facility] Attender: Adonis Smallwood NPReferrer: Adonis HECK-[email or web address] 03/14/2021 01:39:32 PM EDT [facility] Outpatient Attender: Adonis Smallwood NPReferrer: Adonis [email or web address] 03/14/2021 01:09:44 PM EDT - 03/14/2021 02:00:04 PM EDT [facility] Outpatient Attender: Hesham [facility] [place] [facility] 03/01/2021 01:00:0 0 PM EDT [facility] ([facility] Outpatient Attender: Xiomara KATE [place] [facility] 01:40:00 PM EST [facility] ([facility] Outpatient Attender: Hesham [facility] 11/30/2020 12:15:0 0 PM EST [facility] ([facility] Outpatient Attender: Alvaro Pruett/Balaji/Caleb/Jackie escalante 10/14/2020 02:00:00 PM EST [facility] ([facility] Outpatient Attender: Adonis Smallwood NP [email or web address] 12:00:00 AM EST - 09/13/2020 01:21:30 PM EST [facility] Outpatient Attender: Hesham [facility] [place] [facility] 08/26/2020 12:45:0 0 PM EDT [facility] ([facility] Immunizations Vaccine Date Status Description Data Source(s) New in 2012. IIV4 07/21/2021 11:40:00 AM EDT completed [facility] ([facility] COVID-19 VACCINE Moderna 12/30/2020 12:00:00 AM EST completed [facility] Vaccine Series Complete: YESThis Data wa s Submitted to [facility] Via [facility]. COVID-19 VACCINE Moderna 12/02/2020 12:00:00 AM EST completed [facility]IS Vaccine Series Complete: NOThis Data was Submitted to [facility] [employer]. New in 2012. IIV4 08/26/2020 12:54:00 PM EDT completed [facility] ([facility] Medications Medication Brand Name Start Date Product Form Dose Route Admi nistrative Instructions Pharmacy Instructions Status Indications Reaction Description Data Source(s) sitagliptin 50 MG Oral Tablet [Januvia] Januvia 08/08/2021 12:00:0 0 AM EDT ORAL active [facility] ([facility]) doxycycline hyclate 100 MG Oral Capsule Doxycycline Hyclate 07/06/2021 12:00:00 AM EDT ORAL completed [facility] ([facility] Diltiazem Hydrochloride 30 MG Oral Tablet dilTIAZem HC l 30 MG Oral Tablet dilTIAZem HCl 30 MG Oral Tablet 05/05/2021 12:00:00 AM EDT 1 active diltiazem hydrochloride 30 MG Oral Tablet PAUL (Bacilio Augustine MD [facility]) 60 ACTUAT formoterol fumarate 0.005 MG/A CTUAT / mometasone furoate 0.2 MG/ACTUAT Metered Dose Inhaler [Dulera] Dulera 200-5 MCG/ACT Inhalation Aerosol Dulera 200-5 MCG/ACT Inhalation Aerosol 05/05/2021 12:00:00 AM EDT active 60 ACTUAT formoterol fumarate 0.005 MG/A CTUAT / mometasone furoate 0.2 MG/ACTUAT Metered Dose Inhaler [Dulera] PAUL (Bacilio Augustine MD [facility]) ferrous gluconate 324 MG Oral Tablet Jose anil Gluconate 324 (37.5 Fe) MG Oral Tablet Ferrous Gluconate 324 (37.5 Fe) MG Oral Tablet 12:00:00 AM EDT 1 active ferrous gluconate 324 MG Oral Tablet PAUL (Bacilio Augustine MD [facility]) apixaban 5 MG Oral Tablet [Eliquis] Eliquis 5 MG Oral Tablet Eliquis 5 MG Oral Tablet 05/05/2021 12:00:00 AM EDT 1 active apixaban 5 MG Oral Tablet [Eliquis] PAUL (Bacilio Augustine MD [facility]) pantoprazole 40 MG Delayed Release Oral Tablet Pantoprazole Sodium 40 MG Oral Tablet Delayed Release Pantoprazole Sodium 40 MG Oral Tablet Delayed Release 05/05/2021 12:00:00 AM EDT 1 active pantoprazole 40 MG Delayed Release Oral Tablet PAUL (Bacilio Augustine MD [facility]) sitagliptin 50 MG Oral Tablet [Januvia] Januvia 50 MG Oral Tablet Januvia 50 MG Oral Tablet 05/05/2021 12:00:00 AM EDT 1 active sitagliptin 50 MG Oral Tablet [Januvia] PAUL (Bacilio Augustine MD [facility]) latanoprost 0.05 MG/ML Ophthalmic Soluti on Latanoprost 0.005% Ophthalmic Solution Latanoprost 0.005% Ophthalmic Solution 05/05/2021 12:00:00 AM EDT 1 active latanoprost 0.05 MG/ ML Ophthalmic Solution PAUL (Bacilio Augustine MD [facility]) Furosemide 40 MG Oral Tablet Furosemide 40 MG Oral Tablet 12:00:00 AM EDT 1 active furosemide 40 MG Oral Tablet PAUL (Bacilio Augustine MD [facility]) Aspirin 81 MG Delayed Release Oral Table t Aspirin 81 MG Oral Tablet Delayed Release Aspirin 81 MG Oral Tablet Delayed Release 05/05/2021 12:00:00 AM EDT 1 active aspirin 81 MG Delayed Re lease Oral Tablet PAUL (Bacilio Augustine MD [facility]) Spironolactone 25 MG Oral Tablet Spironolactone 25 MG Oral T ablet 05/05/2021 12:00:00 AM EDT active spironol actone 25 MG Oral Tablet PAUL (Bacilio Augustine MD [facility]) Airduo Respiclick 113/14 Airduo Respiclick 113/14 04/13/2021 12:00: 00 AM EDT ORAL [facility] Airduo Digihaler Airduo Digihaler 04/13/2021 12:00:00 AM EDT RESPIRATORY active [facility] ferrous gluconate 324 MG Oral Tablet Ferrous Gluconate 12:00:00 AM EST ORAL active [facility] ([facility] sitagliptin 50 MG Oral Tablet [Januvia] Januvia 12/01/2020 12:00:0 0 AM EST active [facility] ([facility] Insurance Providers Payer name Policy type / Coverage type Policy ID Covered green party ID Covered green party's relationship to rashid Policy Rashid Plan Information Medicare Medicare Primary [id number] Self [id number] MEDICARE [id number] xxxxxxxxxxx [id number] Medicare Medicare Primary [id number] .1051.0 Self [id number] Medicare Medicare Primary [id number] Self [id number] Medicare Medicare Primary [id number] .1051.0 Self [id number] Medicare Medicare Primary [id number] [facility] [id number] Yuly [id number] Medicare Medicare Primary [id number] Self [id number] MEDICARE [id number] Yuly [id number] Medicare Medicare Primary [id number] 2.16.840.1.455502.3.227 .99.716.1051.0 Self [id number] Medicare Medicare Primary [id number] [facility] [id number] xxxxxxxxxxx [id number] Medicare Medicare Primary [id number] Self [id number] MEDICARE [id number] Yuly [id number] A [place] Medicare Primary [id number] Self [id number] [facility] Medigap Part B [id number] Self [id number] Medicare [place] Medicare Primary [id number] 2.16.840.1.175048.3.227.99.991.496710.0 Self [id number] [facility] Medigap Part B [id number] Self [id number] [facility] Medigap Part B [id number] Self Medicare [place] Medicare Primary [id number]9.991.468490.0 Self [id number] [facility] Medigap Part B [id number]9.991.736826.0 Self [id number] Medicare [place] Medicare Primary [id number] Self [facility] [facility] [id number] SP [id number] Medicare Dme Supplies Medigap Part B [id number]9.991.144226.0 Self [id number] [facility]/ Health Care Options Medigap Part B [id number]9.177.84425.0 Self [id number] Medicare - NGS Medicare Primary [id number] 2.16.840.1.062270.3.227.99.177.31936.0 Self 1 [id number] [employer] Medigap Part B [id number] 2.16.840.1.985989.3.227.99.716.1 051.0 Self [id number] [employer] Medigap Part B [id number] 2.16.840.1.551777.3.227.99.716.1 051.0 Self [id number] [employer] Medigap Part B [id number] 2.16.840.1.660158.3.227.99.716.1 051.0 Self [id number] MEDICARE [id number] SP [id number] A [facility] Medigap Part B [id number] 2.16.840.1.787549.3.227.99.1767.1723.0 Self [id number] Medicare Natl Gov't Servi Medicare Primary [id number] 2.16.840.1.497682.3.227.99.1767.1723.0 Self 1 [id number] MEDICARE [id number] SP [id number] MEDICARE C [id number] S [id number] [facility]/ [facility] Care Options Medigap Part B [id number]9.177.57343.0 Self [id number] Medicare - NGS Medicare Primary [id number] 2.16.840.1.181651.3.227.99.177.23143.0 Self 1 [id number] [facility] Medigap Part B [id number] .0 Self [facility] Medigap Part B [id number] Self Medicare Natl Gov't Servi Medicare Primary [id number] Self Medicare Dme Supplies Medigap Part B [id number] Self AARP [facility] Supplemental F [id number] SELF [id number] Medicare C [id number] SELF [id number] A MEDICARE -O/P [id number] 18 [id number] [facility] [place] [id number] 18 [id number] [facility] [facility] [employer] OPTIONS UNAVAILABLE UNAVAILABLE MEDICARE PART A [facility] [id number] 18 [id number] MEDICARE [id number] SP [id number] [employer] [facility] [id number] SP [id number] MEDICARE PART A -O/P [id number] 18 [id number] AARP [employer] CARE OPTIONS-O/P [id number] 18 [id number] Medicare Part B [facility] Other 0 [id number] Self 0 MEDICARE [id number] SP [id number] A MEDICARE C [id number] S [id number] [id number] AARP O [id number] S [id number] [employer] Medigap Part B [id number] Self [id number] [employer] Medigap Part B [id number] Self [id number] [employer]arp Medigap Part B [id number] Self [id number] [employer]arp Medigap Part B [id number] .[id number] 051.0 Self [id number] MEDICARE [id number] SP [id number] A [employer] Medigap Part B [id number] 62715.0 Self [id number] Medicare [place] Medicare Primary [id number] .[id number] Self [id number] MEDICARE C [id number] S [id number] A [employer] Medigap Part B [id number] 2..1.902302.3.227.99.716.1 051.0 Self [id number] [facility]/ Health Care Options Medigap Part B [id number] Self 0 [id number] Medicare - NGS Medicare Primary [id number] Self 1 [id number] Medicare Dme Supplies Medigap Part B [id number] Self [id number] Medicare Dme Supplies Medibelvidere Part B [id number] Self [id number] Problems, Conditions, and Diagnoses Code Display Name Description Problem Type Effective Dates Data Source(s) A07625 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 [place] P92911 Unspecified place in unspeci fied non-institutional (private) residence as the place of occurrence of the external cause Unspecified place in unspecified non-institutional (private) residence as the place of occurrence of the external cause Diagnosis 06/09/2021 06:05:[address] [facility] [place] [id number] Fall on same level from slip ping, tripping and stumbling with subsequent striking against other object, initial encounter Fall on same level from slipping, tripping and stumbling with subsequent striking against other object, initial encounter Diagnosis 06/09/2021 06:05:[address] [facility] [place] M18625 Presence of left artificial hip joint Pr esence of left artificial hip joint Diagnosis 06/09/2021 06:05:[address] [facility] [place] N82829 Personal history of nicotine dependence Personal history of nicotine dependence Diagnosis 06/09/2021 06:05:[address] 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 [place] Z7901 intermodal owner operator truck driver (current) use of anticoagulant s intermodal owner operator truck driver (current) use of anticoagulants Diagnosis 06/09/2021 06:05:[address] [facility] [place] [id number] Unspecified injury of head, initial enco unter Unspecified injury of head, initial encounter Diagnosis 06/09/2021 06:05:[address] [facility] [place] O35805 Effusion, right knee Effusion, right knee Diagnosis 06/09/2021 06:05:00 PM EDT [facility] E119 Type 2 diabetes mellitus without complic ations Type 2 diabetes mellitus without complications Diagnosis 06/09/2021 06:05:00 PM EDT [facility] I509 Heart failure, unspecified Heart failure, unspecified Diagnosis 06/09/2021 06:05:00 PM EDT [facility] J449 Chronic obstructive pulmonary disease, u nspecified Chronic obstructive pulmonary disease, unspecified Diagnosis 06/09/2021 06:05:00 PM EDT [facility] [id number] Contusion of right knee, initial encount er Contusion of right knee, initial encounter Diagnosis 06/09/2021 06:05:00 PM EDT [facility] [id number] Unspecified injury of right lower leg, i nitial encounter Unspecified injury of right lower leg, initial encounter Diagnosis 06:05:00 PM EDT [facility] I10 Essential (primary) hypertension Essential (primary) h ypertension Diagnosis 03/14/2021 01:39:32 PM EDT [facility] E78.00 Pure hypercholesterolemia, unspecified P ure hypercholesterolemia, unspecified Diagnosis 03/14/2021 01:39:32 PM EDT [facility] I48.0 Paroxysmal atrial fibrillation Paroxysmal atrial fibri llation Diagnosis 03/14/2021 01:39:32 PM EDT [facility] 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 Chronic combined systolic (congestive) a Diagnosis 03/14/2021 01:09:44 PM EDT [facility] L97.229 Chronic ulcer of calf Chronic ulcer of calf Problem 08/30/2021 12:00:00 AM EDT [facility] ([facility]) [id number] Pure hypercholesterolemia Pure hypercholesterolemia Pr oblem 08/08/2021 12:00:00 AM EDT [facility] ([facility]) 60682788 Essential hypertension Essential hypertension Problem 08/08/2021 12:00:00 AM EDT [facility] ([facility]) 379.21 Vitreous Disorders Degeneration Vitreous Disorders Deg eneration Problem 05/05/2021 12:00:00 AM EDT PAUL (Bacilio Augustine MD [facility]) 14047127 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 Problem 05/05/2021 12:00:00 AM EDT PAUL (Bacilio Augustine MD [facility]) 366.16 Cataract Senile Nuclear Cataract Senile Nuclear Proble m 05/05/2021 12:00:00 AM EDT PAUL (Bacilio Augustine MD [facility]) [id number] 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 Open Angle with Borderline Findings Both Eyes Problem 05/05/2021 12:00:00 AM EDT PAUL (Bacilio Augustine MD [facility]) 00307250 Retinopathy Hypertensive Both Eyes Retinopathy H ypertensive Both Eyes Problem 05/05/2021 12:00:00 AM EDT PAUL (Bacilio dwyer MD [facility]) 401.9 Essential Hypertension Essential Hypertension Problem 05/05/2021 12:00:00 AM EDT PAUL (Bacilio Augustine MD [facility]) [id number] History of Nicotine Dependence History of Nicotine Dep endence Problem 05/05/2021 12:00:00 AM EDT PAUL (Bacilio Augustine MD [facility]) 250.00 Diabetes Mellitus Type 2 Without Complic ation Diabetes Mellitus Type 2 Without Complication Problem 05/05/2021 12:00:00 AM EDT PAUL (Rudi Augustine MD [facility]) 374.87 Dermatochalasis Dermatochalasis Problem 05/05/2021 12:0 0:00 AM EDT PAUL (Bacilio Augustine MD [facility]) 366.15 Cataract Senile Cortical Bilateral Cataract Brittaney le Cortical Bilateral Problem 05/05/2021 12:00:00 AM EDT PAUL (Bacilio dwyer MD [facility]) Z79.84 Taking Medication For Diabetes Long-term Use of Oral Hypoglycemics Taking Medication For Diabetes Long-term Use of Oral Hypoglycemics Problem 05/05/2021 12:00:00 AM EDT PAUL (Bacilio Augustine MD [facility]) Surgeries/Procedures Procedure Description Date Indications Data Source(s) OFFICE OUTPATIENT VISIT 25 MINUTES 09/16/2021 12:00:00 AM EDT MEDJENN[facility] ([facility] OFFICE OUTPATIENT VISIT 25 MINUTES 09/08/2021 12:00:00 AM EDT [facility] ([facility]) DUP-SCAN LXTR ART/ARTL BPGS UNI/LMTD STUDY 09/05/2021 12:00:00 AM EDT [facility] ([facility]) OFFICE OUTPATIENT VISIT 15 MINUTES 09/05/2021 12:00:00 AM EDT [facility] ([facility]) OFFICE OUTPATIENT NEW 30 MINUTES 08/30/2021 12:00:00 A M EDT [facility] ([facility]) X-Ray Hips Bilateral With Pelvis 3-4 Views 08/08/2021 12:00:00 AM EDT [facility] ([facility] ) OFFICE OUTPATIENT NEW 45 MINUTES 08/08/2021 12:00:00 A M EDT [facility] ([facility] ) NON-INVAS PHYSIOLOGIC STD EXTREMITY ART 2 LEVEL 2020 12:00:00 AM EDT [facility] ([facility] ) OFFICE OUTPATIENT VISIT 25 MINUTES 07/21/2021 12:00:00 AM EDT [facility] ([facility] OFFICE OUTPATIENT VISIT 25 MINUTES 07/06/2021 12:00:00 AM EDT [facility] ([facility] OFFICE OUTPATIENT NEW 30 MINUTES 07/01/2021 12:00:00 A M EDT MED[facility] ([facility]) OFFICE OUTPATIENT VISIT 25 MINUTES 06/16/2021 12:00:00 AM EDT [facility] ([facility] OFFICE OUTPATIENT VISIT 25 MINUTES 06/09/2021 12:00:00 AM EDT [facility] ([facility] Surgical / procedural history Vasectomy, Left Hip Rep lacement, Left Leg Artery Surgical / procedural history Vasectomy, Left Hip Replacement, Left Leg Artery 05/05/2021 12:00:00 AM MASON MILLER (Bacilio dwyer MD [facility]) Gonioscopy Gonioscopy 05/05/2021 12:00:00 AM MASON DORSEY (Bacilio Augustine MD [facility]) Comprehensive Eye Exam (25) Comprehensive Eye Exam (25) 04/13 12:00:00 AM MASON MILLER (Bacilio Augustine MD [facility]) OPHTHALMIC US DX CORNEAL PACHYMETRY UNI/BI Corneal Pachymetr y ([place]) 05/05/2021 12:00:00 AM EDT PAUL (Bacilio Augustine MD [facility]) COMPUTERIZED OPHTHALMIC IMAGING OPTIC NERVE Scodi, opt ic nerve with interpretation and report ([place]) 05/05/2021 12:00:00 AM EDT GR HAYDEERAMSES (Bacilio Augustine MD [facility]) DEMO&/EVAL OF PT UTILIZ AERSL GEN/NEB/INHLR/IPPB 04/13 12:00:00 AM EDT MED[facility] ([facility], ) OFFICE OUTPATIENT VISIT 25 MINUTES 03/01/2021 12:00:00 AM EDT [facility] ([facility] OFFICE OUTPATIENT VISIT 15 MINUTES 12/31/2020 12:00:00 AM EST [facility] ([facility] ECG ROUTINE ECG W/LEAST 12 LDS W/I&R <td>POCT AMB EKG</td><td>Routine</td><td>09/13/2020 1:04 PM EST</td><td> Paroxysmal atrial fibrillation</td><td> </td> 09/13/2020 06:04:00 PM EST Paroxysmal atrial fibrillation [facility] Paroxysmal atrial fibrillation DUP-SCAN LXTR ART/ARTL BPGS UNI/LMTD STUDY 09/02/2020 12:00:00 AM EDT [facility] ([facility]) DUP-SCAN LXTR ART/ARTL BPGS UNI/LMTD STUDY 09/02/2020 12:00:00 AM EDT [facility] ([facility]) Results ID Date Data Source [id number] 09/15/2021 01:37:00 PM EDT [facility] [address] [place] [address] PHONE: [phone] FAX: [phone] Name .................. : PAPITO Hussein Number.................. : [id number] ROOM. ................. : MR Number ................... : [id number] Stay type ............. : CLINIC Discharge Date......... ... : 09/15/21 Admit Date ......... : 09/15/21 Admit Phys .................... : PEDRO TAFOYA Date of ....... : 1945 Family Phys ................... : TORRES GARZA Phone .................. : [phone] Age ................................ : 76 Film# .................. .:[id number] Sex ................................. : Nazanin Unsigned transcriptions are preliminary reports and do not represent a medical or legal document [place] [id number] COMPLETE:09/15/21 12:47 CML 42970 Reason for Exam: DVT, ACUTE EMBOLISM R LOWER EXT ULTRASOUND RIGHT LOWER EXTREMITY VENOUS INDICATION: Leg swelling COMPARISON: None FINDINGS: Duplex imaging with color flow Doppler and spectral analysis was used to study the deep venous system from common femoral vein through the calf. A combination of compressibility and flow augmentation was utilized to assess patency. The examination is degraded by large patient body habitus. The examination shows no deep venous thrombosis. Patent common femoral, femoral, popliteal, anterior tibial and posterior tibial veins. Spontaneous flow and/or compressibility is noted. Scattered normal-appearing lymph nodes are seen in the right inguinal region. IMPRESSION: No deep venous thrombosis. Electronically Reviewed and Signed By Yomi Ann MD , 09/15/21 13:37, ROVERTO Transcribe Initials: SSR, Transcribe Date: 09/15/21 13:06, Dictation Date: Page 1 of 1 Name Value Range Interpretation Code Description Data Trina rce(s) Supporting Document(s) ID Date Data Source [id number] 09/05/2021 02:10:00 PM EDT [facility] ([facility] Name Value Range Interpretation Code Description Data Trina rce(s) Supporting Document(s) Arterial Ultrasound Lower Extremity Left Laboratory test result [facility] ([facility]) ID Date Data Source [id number] 07/06/2021 03:56:00 PM EDT [facility] ([facility] Name Value Range Interpretation Code Description Data Trina rce(s) Supporting Document(s) Erythrocyte sedimentation rate by Westergren method 31 mm/hr 0-20 Above high normal [facility] ([facility] ) NORMAL RANGES Age WBC RBC HGB HCT [...] HCT IS 5% LESS SOURCE FOR DATA: buuteeq 1800 OPERATION MANUAL( AUTOMATED BLOOD COUNTS AND DIFF.) APPENDIX B-3 ID Date Data Source [id number] 07/06/2021 03:56:00 PM EDT [facility] ([facility] Name Value Range Interpretation Code Description Data Trina rce(s) Supporting Document(s) WBC 8.8 10E3/uL 4.1-10.9 [facility] ([facility] NORMAL RANGES Age WBC RBC [...] HCT IS 5% LESS SOURCE FOR DATA: [employer] DYN 1800 OPERATION MANUAL( AUTOMATED BLOOD COUNTS AND DIFF.) APPENDIX B-3 HGB 12.2 g/dL 12.0-18.0 [facility] ([facility] NORMAL RANGES Age WBC RBC HGB [...] HCT IS 5% LESS SOURCE FOR DATA: [employer] DYN 1800 OPERATION MANUAL( AUTOMATED BLOOD COUNTS AND DIFF.) APPENDIX B-3 RBC 4.24 10E6/uL 4.20-6.30 [facility] ([facility] NORMAL RANGES Age WBC RBC [...] HCT IS 5% LESS SOURCE FOR DATA: buuteeq 1800 OPERATION MANUAL( AUTOMATED BLOOD COUNTS AND DIFF.) APPENDIX B-3 HCT 40.3 % 37.0-51.0 [facility] ([facility] NORMAL RANGES Age WBC RBC [...] BLOOD COUNTS AND DIFF.) APPENDIX B-3 MCH 28.8 pg 26.0-32.0 [facility] ([facility] NORMAL RANGES Age [...] HCT IS 5% LESS SOURCE FOR DATA: buuteeq 1800 OPERATION MANUAL( AUTOMATED BLOOD COUNTS AND DIFF.) APPENDIX B-3 MCV 95.0 fL 80.0-97.0 [facility] ([facility] NORMAL RANGES Age WBC RBC HGB HCT MCV PLT Adult M 4.1-10.9 4.20-6.30 12.0-18.0 37.0-51.0 80-97 140-440 Adult F 4.1-10.9 4.04-5.48 12.0-18.0 37.0-51.0 80- 140-440 0 -1 Yr 5.0-20.0 3.9-5.9 15-18 [...] HCT IS 5% LESS SOURCE FOR DATA: buuteeq 1800 OPERATION MANUAL( AUTOMATED BLOOD COUNTS AND DIFF.) APPENDIX B-3 RDW-CV 15.4 % 11.5-14.5 Above high normal [facility] ([facility] NORMAL RANGES Age WBC RBC HGB HCT MCV PLT Adult M 4.1-10.9 4.20-6.30 12.0-18.0 37.0-51.0 80- 140-440 Adult F 4.1-10.9 4.04-5.48 12.0-18.0 37.0-51.0 80- 140-440 0 -1 Yr 5.0-20.0 3.9-5.9 15-18 [...] BLOOD COUNTS AND DIFF.) APPENDIX B-3 PLT 236 10E3/uL 140-440 [facility] ([facility] NORMAL RANGES Age WBC RBC [...] BLOOD COUNTS AND DIFF.) APPENDIX B-3 MCHC 30.3 g/dL 31.0-36.0 Below low normal [facility] ( [facility] NORMAL RANGES Age WBC [...] BLOOD COUNTS AND DIFF.) APPENDIX B-3 Neut% 71.5 % 37.0-92.0 [facility] ([facility] NORMAL RANGES Age WBC RBC [...] HCT IS 5% LESS SOURCE FOR DATA: buuteeq 1800 OPERATION MANUAL( AUTOMATED BLOOD COUNTS AND DIFF.) APPENDIX B-3 MXD% 13.5 % 0.1-24.0 [facility] ([facility] NORMAL [...] HCT IS 5% LESS SOURCE FOR DATA: buuteeq 1800 OPERATION MANUAL( AUTOMATED BLOOD COUNTS AND DIFF.) APPENDIX B-3 Lym% 15.0 % 10.0-58.5 [facility] ([facility] [facility] NORMAL RANGES Age WBC RBC HGB HCT MCV PLT Adult M 4.1-10.9 4.20-6.30 12.0-18.0 37.0-51.0 80-97 140-440 Adult F 4.1-10.9 4.04-5.48 12.0-18.0 37.0-51.0 140440 0 -1 Yr 5.0-20.0 3.9-5.9 15-18 MV: [...] HCT IS 5% LESS SOURCE FOR DATA: buuteeq 1800 OPERATION MANUAL( AUTOMATED BLOOD COUNTS AND DIFF.) APPENDIX B-3 MXD# 1.2 10E3/uL 0.0-1.8 [facility] ([facility] NORMAL RANGES Age WBC RBC HGB HCT MCV PLT Adult M 4.1-10.9 4.20-6.30 12.0-18.0 37.0-51.0 140440 Adult F 4.1-10.9 4.04-5.48 12.0-18.0 37.0-51.0 140440 0 -1 Yr 5.0-20.0 3.9-5.9 15-18 MV: [...] HCT IS 5% LESS SOURCE FOR DATA: [employer] DYN 1800 OPERATION MANUAL( AUTOMATED BLOOD COUNTS AND DIFF.) APPENDIX B-3 Lym# 1.3 10E3/uL 0.6-4.1 [facility] ([facility] NORMAL RANGES Age WBC RBC HGB [...] BLOOD COUNTS AND DIFF.) APPENDIX B-3 Neut# 6.3 % 2.0-7.8 [facility] ([facility] NORMAL RANGES Age WBC RBC HGB [...] BLOOD COUNTS AND DIFF.) APPENDIX B-3 MPV 9.3 fL 9.0-13.0 [facility] ([facility] NORMAL RANGES Age WBC RBC HGB [...] DIFF.) APPENDIX B-3 ID Date Data Source [id number] 07/06/2021 03:49:00 PM EDT [facility] ([facility] Name Value Range Interpretation Code Description Data Trina rce(s) Supporting Document(s) Bacteria identified in Unspecified specimen by Aerobe culture Laboratory test result [facility] ([facility] SRC:LT LOWER LEG CX Bacteria identified in Unspecified specimen by Culture Laborator y test result [facility] ([facility] ) SRC:LT LOWER LEG CX ID Date Data Source [id number] 07/06/2021 03:49:00 PM EDT [facility] ([facility] Name Value Range Interpretation Code Description Data Trina rce(s) Supporting Document(s) Bacteria identified in Unspecified specimen by Aerobe culture Laboratory test result [facility] ([facility] ID Date Data Source [id number] 06/16/2021 03:26:00 PM EDT [facility] ([facility] Name Value Range Interpretation Code Description Data Trina rce(s) Supporting Document(s) Hemoglobin A1c/Hemoglobin.total in Blood 7.0 % 4.50-6.20 Above high normal [facility] ([facility] ID Date Data Source [id number] 06/16/2021 03:26:00 PM EDT [facility] ([facility] Name Value Range Interpretation Code Description Data Trina rce(s) Supporting Document(s) Creatine kinase [Enzymatic activity/volume] in Serum or Plasma 79 U /L 39-308 [facility] ([facility] NORMAL RANGES Age WBC [...] HCT IS 5% LESS SOURCE FOR DATA: buuteeq 1800 OPERATION MANUAL( AUTOMATED BLOOD COUNTS AND [...] 2-19 YEARS EXCLUSIVE. ID Date Data Source [id number] 06/16/2021 03:26:00 PM EDT [facility] ([facility] Name Value Range Interpretation Code Description Data Trina rce(s) Supporting Document(s) Chol 140 mg/dL 0-200 [facility] ([facility] NORMAL [...] HCT IS 5% LESS SOURCE FOR DATA: buuteeq 1800 OPERATION MANUAL( AUTOMATED BLOOD COUNTS AND [...] in Serum or Plasma 49 mg/dL 35-55 [facility] ([facility] [...] HCT IS 5% LESS SOURCE FOR DATA: [employer] DYN 1800 OPERATION MANUAL( AUTOMATED BLOOD COUNTS [...] REPRESENTS INDIVIDUALA AGED 2-19 YEARS EXCLUSIVE. Trig 140 mg/dL 35-200 [facility] ([facility] NORMAL [...] HCT IS 5% LESS SOURCE FOR DATA: buuteeq 1800 OPERATION MANUAL( AUTOMATED BLOOD COUNTS AND [...] 2-19 YEARS EXCLUSIVE. Cho/HDL Ratio 2.9 CALC [facility] ([facility] NORMAL RANGES Age WBC RBC [...] HCT IS 5% LESS SOURCE FOR DATA: buuteeq 1800 OPERATION MANUAL( AUTOMATED BLOOD COUNTS AND [...] REPRESENTS INDIVIDUALA AGED 2-19 YEARS EXCLUSIVE. LDL_C 63 Calc 75-129 Below low normal [facility] ( [...] HCT IS 5% LESS SOURCE FOR DATA: [employer] DYN 1800 OPERATION MANUAL( AUTOMATED BLOOD COUNTS [...] 2-19 YEARS EXCLUSIVE. ID Date Data Source [id number] 06/16/2021 03:26:00 PM EDT [facility] ([facility] Name Value Range Interpretation Code Description Data Trina rce(s) Supporting Document(s) Glu 160 mg/dL 70-110 Above high normal [facility] ([facility] NORMAL RANGES Age WBC [...] HCT IS 5% LESS SOURCE FOR DATA: buuteeq 1800 OPERATION MANUAL( AUTOMATED BLOOD COUNTS AND [...] REPRESENTS INDIVIDUALA AGED 2-19 YEARS EXCLUSIVE. BUN 21 mg/dL 8-23 [facility] ([facility] NORMAL RANGES Age WBC [...] HCT IS 5% LESS SOURCE FOR DATA: buuteeq 1800 OPERATION MANUAL( AUTOMATED BLOOD COUNTS AND [...] 2-19 YEARS EXCLUSIVE. Creat 0.7 mg/dL 0.7-1.2 [facility] ([facility] NORMAL [...] HCT IS 5% LESS SOURCE FOR DATA: buuteeq 1800 OPERATION MANUAL( AUTOMATED BLOOD COUNTS AND [...] INDIVIDUALA AGED 2-19 YEARS EXCLUSIVE. BUN/Creatinine Ratio 29.8 Calc [facility] ([facility] NORMAL RANGES Age WBC [...] HCT IS 5% LESS SOURCE FOR DATA: buuteeq 1800 OPERATION MANUAL( AUTOMATED BLOOD COUNTS AND [...] 2-19 YEARS EXCLUSIVE. Na 141 mmol/L 136-145 [facility] ([facility] NORMAL RANGES Age WBC RBC [...] HCT IS 5% LESS SOURCE FOR DATA: buuteeq 1800 OPERATION MANUAL( AUTOMATED BLOOD COUNTS AND [...] REPRESENTS INDIVIDUALA AGED 2-19 YEARS EXCLUSIVE. K 4.0 mmol/L 3.5-5.1 [facility] ([facility] NORMAL [...] HCT IS 5% LESS SOURCE FOR DATA: buuteeq 1800 OPERATION MANUAL( AUTOMATED BLOOD COUNTS AND [...] REPRESENTS INDIVIDUALA AGED 2-19 YEARS EXCLUSIVE. CL 99.5 mmol/L 98.0-107.0 [facility] ([facility] [...] HCT IS 5% LESS SOURCE FOR DATA: buuteeq 1800 OPERATION MANUAL( AUTOMATED BLOOD COUNTS AND [...] REPRESENTS INDIVIDUALA AGED 2-19 YEARS EXCLUSIVE. Co2 35.7 mmol/L 22.0-29.0 Above high normal [facility] ([facility] [...] REPRESENTS INDIVIDUALA AGED 2-19 YEARS EXCLUSIVE. TP 6.9 g/dL 6.6-8.7 [facility] ([facility] NORMAL [...] HCT IS 5% LESS SOURCE FOR DATA: buuteeq 1800 OPERATION MANUAL( AUTOMATED BLOOD COUNTS AND [...] 2-19 YEARS EXCLUSIVE. CA 9.0 mg/dL 8.6-10.2 [facility] ([facility] NORMAL [...] HCT IS 5% LESS SOURCE FOR DATA: buuteeq 1800 OPERATION MANUAL( AUTOMATED BLOOD COUNTS AND [...] REPRESENTS INDIVIDUALA AGED 2-19 YEARS EXCLUSIVE. Alb 4.1 g/dL 3.5-5.2 [facility] ([facility], [...] HCT IS 5% LESS SOURCE FOR DATA: [employer] DYN 1800 OPERATION MANUAL( AUTOMATED BLOOD COUNTS [...] INDIVIDUALA AGED 2-19 YEARS EXCLUSIVE. A/G Ratio 1.5 Calc [facility] ([facility] NORMAL [...] HCT IS 5% LESS SOURCE FOR DATA: buuteeq 1800 OPERATION MANUAL( AUTOMATED BLOOD COUNTS AND [...] REPRESENTS INDIVIDUALA AGED 2-19 YEARS EXCLUSIVE. Globulin 2.8 Calc [facility] ([facility] NORMAL [...] HCT IS 5% LESS SOURCE FOR DATA: buuteeq 1800 OPERATION MANUAL( AUTOMATED BLOOD COUNTS AND [...] REPRESENTS INDIVIDUALA AGED 2-19 YEARS EXCLUSIVE. Alp 85.4 U/L 40-129 [facility] ([facility] NORMAL [...] HCT IS 5% LESS SOURCE FOR DATA: buuteeq 1800 OPERATION MANUAL( AUTOMATED BLOOD COUNTS AND [...] INDIVIDUALA AGED 2-19 YEARS EXCLUSIVE. Alt (SGPT) 16 U/L 0-41 [facility] NORMAL RANGES Age [...] HCT IS 5% LESS SOURCE FOR DATA: buuteeq 1800 OPERATION MANUAL( AUTOMATED BLOOD COUNTS AND [...] INDIVIDUALA AGED 2-19 YEARS EXCLUSIVE. Ast (Sgot) 15 U/L 0-40 [facility] ([facility] NORMAL [...] HCT IS 5% LESS SOURCE FOR DATA: [employer] DYN 1800 OPERATION MANUAL( AUTOMATED BLOOD COUNTS [...] REPRESENTS INDIVIDUALA AGED 2-19 YEARS EXCLUSIVE. Osmolality-Calculated 287.5 Calc [facility] ([facility] NORMAL [...] HCT IS 5% LESS SOURCE FOR DATA: [employer] DYN 1800 OPERATION MANUAL( AUTOMATED BLOOD COUNTS [...] 2-19 YEARS EXCLUSIVE. Tbili 0.22 mg/dL 0.0-1.2 [facility] ([facility] NORMAL RANGES Age [...] HCT IS 5% LESS SOURCE FOR DATA: buuteeq 1800 OPERATION MANUAL( AUTOMATED BLOOD COUNTS AND [...] INDIVIDUALA AGED 2-19 YEARS EXCLUSIVE. Anion Gap 10 mmol/L [facility] ([facility] NORMAL RANGES Age WBC [...] HCT IS 5% LESS SOURCE FOR DATA: [employer] DYN 1800 OPERATION MANUAL( AUTOMATED BLOOD COUNTS [...] INDIVIDUALA AGED 2-19 YEARS EXCLUSIVE. eGFR Non-Afr. German 91 # [facility] ([facility] NORMAL [...] HCT IS 5% LESS SOURCE FOR DATA: [employer] DYN 1800 OPERATION MANUAL( AUTOMATED BLOOD COUNTS [...] # [facility] ( [facility] NORMAL [...] HCT IS 5% LESS SOURCE FOR DATA: buuteeq 1800 OPERATION MANUAL( AUTOMATED BLOOD COUNTS AND [...] 2-19 YEARS EXCLUSIVE. ID Date Data Source [id number] 06/16/2021 03:26:00 PM EDT [facility] ([facility] Name Value Range Interpretation Code Description Data Trina rce(s) Supporting Document(s) WBC 7.2 10E3/uL 4.1-10.9 [facility] ([facility] NORMAL RANGES Age WBC RBC [...] HCT IS 5% LESS SOURCE FOR DATA: buuteeq 1800 OPERATION MANUAL( AUTOMATED BLOOD COUNTS AND [...] REPRESENTS INDIVIDUALA AGED 2-19 YEARS EXCLUSIVE. HGB 13.5 g/dL 12.0-18.0 [facility] ([facility] NORMAL [...] HCT IS 5% LESS SOURCE FOR DATA: buuteeq 1800 OPERATION MANUAL( AUTOMATED BLOOD COUNTS AND [...] REPRESENTS INDIVIDUALA AGED 2-19 YEARS EXCLUSIVE. RBC 4.82 10E6/uL 4.20-6.30 [facility] NORMAL RANGES Age WBC RBC [...] HCT IS 5% LESS SOURCE FOR DATA: buuteeq 1800 OPERATION MANUAL( AUTOMATED BLOOD COUNTS AND [...] REPRESENTS INDIVIDUALA AGED 2-19 YEARS EXCLUSIVE. MCH 28.0 pg 26.0-32.0 [facility] ([facility] NORMAL [...] HCT IS 5% LESS SOURCE FOR DATA: buuteeq 1800 OPERATION MANUAL( AUTOMATED BLOOD COUNTS AND [...] REPRESENTS INDIVIDUALA AGED 2-19 YEARS EXCLUSIVE. MCV 92.9 fL 80.0-97.0 [facility] ([facility] NORMAL [...] HCT IS 5% LESS SOURCE FOR DATA: buuteeq 1800 OPERATION MANUAL( AUTOMATED BLOOD COUNTS AND [...] REPRESENTS INDIVIDUALA AGED 2-19 YEARS EXCLUSIVE. HCT 44.8 % 37.0-51.0 [facility] ([facility] [...] HCT IS 5% LESS SOURCE FOR DATA: buuteeq 1800 OPERATION MANUAL( AUTOMATED BLOOD COUNTS AND [...] REPRESENTS INDIVIDUALA AGED 2-19 YEARS EXCLUSIVE. PLT 283 10E3/uL 140-440 [facility] ([facility] NORMAL RANGES Age WBC RBC [...] HCT IS 5% LESS SOURCE FOR DATA: [employer] DYN 1800 OPERATION MANUAL( AUTOMATED BLOOD COUNTS [...] REPRESENTS INDIVIDUALA AGED 2-19 YEARS EXCLUSIVE. MCHC 30.1 g/dL 31.0-36.0 Below low normal [facility] ( [...] HCT IS 5% LESS SOURCE FOR DATA: buuteeq 1800 OPERATION MANUAL( AUTOMATED BLOOD COUNTS AND [...] REPRESENTS INDIVIDUALA AGED 2-19 YEARS EXCLUSIVE. RDW-CV 16.3 % 11.5-14.5 Above high normal [facility] ([facility] [...] HCT IS 5% LESS SOURCE FOR DATA: buuteeq 1800 OPERATION MANUAL( AUTOMATED BLOOD COUNTS AND [...] REPRESENTS INDIVIDUALA AGED 2-19 YEARS EXCLUSIVE. Neut% 71.0 % 37.0-92.0 [facility] ([facility] NORMAL [...] HCT IS 5% LESS SOURCE FOR DATA: buuteeq 1800 OPERATION MANUAL( AUTOMATED BLOOD COUNTS AND [...] REPRESENTS INDIVIDUALA AGED 2-19 YEARS EXCLUSIVE. MXD% 9.0 % 0.1-24.0 [facility] ([facility] NORMAL [...] HCT IS 5% LESS SOURCE FOR DATA: buuteeq 1800 OPERATION MANUAL( AUTOMATED BLOOD COUNTS AND [...] REPRESENTS INDIVIDUALA AGED 2-19 YEARS EXCLUSIVE. Lym% 20.0 % 10.0-58.5 [facility] ([facility] NORMAL [...] HCT IS 5% LESS SOURCE FOR DATA: buuteeq 1800 OPERATION MANUAL( AUTOMATED BLOOD COUNTS AND [...] REPRESENTS INDIVIDUALA AGED 2-19 YEARS EXCLUSIVE. Neut# 5.2 % 2.0-7.8 [facility] ([facility] NORMAL [...] HCT IS 5% LESS SOURCE FOR DATA: buuteeq 1800 OPERATION MANUAL( AUTOMATED BLOOD COUNTS AND [...] REPRESENTS INDIVIDUALA AGED 2-19 YEARS EXCLUSIVE. Lym# 1.4 10E3/uL 0.6-4.1 [facility] ([facility] NORMAL RANGES Age WBC RBC [...] HCT IS 5% LESS SOURCE FOR DATA: buuteeq 1800 OPERATION MANUAL( AUTOMATED BLOOD COUNTS AND [...] REPRESENTS INDIVIDUALA AGED 2-19 YEARS EXCLUSIVE. MPV 11.4 fL 9.0-13.0 [facility] ([facility] NORMAL RANGES Age [...] HCT IS 5% LESS SOURCE FOR DATA: buuteeq 1800 OPERATION MANUAL( AUTOMATED BLOOD COUNTS AND [...] REPRESENTS INDIVIDUALA AGED 2-19 YEARS EXCLUSIVE. MXD# 0.6 10E3/uL 0.0-1.8 [facility] ([facility] NORMAL RANGES Age WBC RBC [...] HCT IS 5% LESS SOURCE FOR DATA: buuteeq 1800 OPERATION MANUAL( AUTOMATED BLOOD COUNTS AND [...] 2-19 YEARS EXCLUSIVE. ID Date Data Source [id number] 06/13/2021 09:20:00 AM EDT [facility] [address] [place] [address] PHONE: [phone] FAX: [phone] Name .................. : PAPITO Hussein Number.................. : [id number] ROOM. ................. : [id number] MR Number ................... : [id number] Stay type ............. : E/R Discharge Date......... ... : 06/09/21 Admit Date ......... : 06/09/21 Admit Phys .................... : ALVA Moody Date of ....... : 1945 Family Phys ................... : TORRES GARZA Phone .................. : [phone] Age ................................ : 75 Film# .................. .:[id number] Sex ................................. : M Unsigned transcriptions are preliminary reports and do not represent a medical or legal document KNEE COMPLETE-4 OR MORE S R [id number] COMPLETE:06/09/21 21:42 DLA [id number] Reason(s): Hematoma RIGHT KNEE, 06/09/21: Prior examination: None available. FINDINGS: There is no acute fracture or dislocation. There are moderate degenerative changes throughout the knee, including joint space narrowing with subchondral sclerosis. There is degenerative chondrocalcinosis. The bones are demineralized. There is a moderate-sized joint effusion. Clinical correlation with CT scan is advised if need further evaluation. There are vascular calcifications. IMPRESSION: Degenerative changes without displaced fracture. Moderate-sized joint effusion. Consider further evaluation with CT scan as clinically warranted. __ Electronically Reviewed and Signed By Elbert Smith MD , 06/13/21 09:20, AML Transcribe Initials: SSR, Transcribe Date: 06/10/21 09:06, Dictation Date: Copy for: [facility] BACH via fax Copy for: EMERGENCY DEPT via modem Copy for: [facility] DISCHARGED Page 1 of 1 Name Value Range Interpretation Code Description Data Trina rce(s) Supporting Document(s) ID Date Data Source [id number] 06/09/2021 06:05:00 PM EDT [facility] 1 OrderSheet [facility] Emergency Department [address] [place] [address] Phone #: ext- [phone] 06/09/2021 17:59 Patient: LALO LUNA Sex: M : 1945 Age: 75yWEIGHT:92.5 kg (S) HEIGHT:70 inches (S) BMI:29.3ALLERGIES: No Known Drug AllergyCHIEF COMPLAINT: Rt, kneeDIAGNOSIS: Contusion, Knee joint effusionLAB ORDERSOrder Description Priority Entered Acknowledged InitialedDIAGNOSTIC STUDY ORDERSOrder Description Priority Entered Acknowledged InitialedKnee Complete STAT 20:11 06/09/2021 21:49 Mackenzie (Oxygen? Allan Willard RN(Yes)) Reason for Study: Hematoma, Knee InjuryCT Head W/O Cont STAT 20:11 06/09/2021 Ack'd: 20:25 21:49 Grant(Oxygen? (Yes)) Allan Willard RN Wale MILNER Reason for Study: Head InjuryMEDICATION/IV/DRIP/FLUID ORDERSOrder Description Priority Entered Acknowledged InitialedVicodin (5-325mg) 20:11 06/09/2021 20:32 StevenPO 1 tab (HIGH Allan Willard RNALERTMEDICATION)GENERAL ORDERSOrder Description Priority Entered Acknowledged Initialed[Electronically signed by Grant Echevarria RN (22:32 06/09/2021)][Electronically signed by Allan Willard (01:11 06/10/2021)][Electronically locked by Grant Echevarria RN (:32 06/09/2021)] Name Value Range Interpretation Code Description Data Trina rce(s) Supporting Document(s) ID Date Data Source [id number] 06/09/2021 06:05:00 PM EDT [facility] 1 Medication Reconciliation Report [facility] Emergency Department [address] [place] [address] Phone #: ext- [phone] 06/09/2021 17:59 Patient: LALO LUNA Sex: M : 1945 Age: 75yWeight: 92.5 kgHeight/Length: 70 in.BMI: 29.3ALLERGIES: No Known Drug AllergyThe patient's Home Medications are listed below:CONTINUE TAKING THE FOLLOWING MEDICATIONS: Aspirin Oral (81 mg), daily dilTIAZem HCl Oral (30 mg), 2x a day Dulera Inhalation (200-5 mcg/act), 2x a day Eliquis Oral (5 mg), 2x a day Ferrous Gluconate Oral (324 (38 Fe) mg), daily Januvia Oral (50 mg), daily Lasix Oral 40 mg, 2x a day Latanoprost Ophthalmic, daily, at bedtime Pantoprazole Sodium Oral 40 mg, daily Pravastatin Sodium Oral 20 mg, daily Spironolactone Oral (25 mg) 1/2 tablet, dailyThe source(s) of the original Home Medication information:patientThe following Medications were given to the patient in the Emergency Department:VICODIN (5-325MG) [PO] PO 1 tab, administered: 20:32 06/09/2021 2 Medication Reconciliation Report [facility] Emergency Department [address] [place] [address] Phone #: ext- [phone] 06/09/2021 17:59 Patient: LALO LUNA Sex: M : 1945 Age: 75yThe following Medications were prescribed to the patient:None. Name Value Range Interpretation Code Description Data Trina rce(s) Supporting Document(s) ID Date Data Source [id number] 06/09/2021 06:05:00 PM EDT [facility] 1 Medication Administration Record [facility] Emergency Department [address] [place] [address] Phone #: ext- [phone] 06/09/2021 17:59 Patient: LALO LUNA Sex: M : 1945 Age: 75yWeight: 92.5 kgHeight/Length: 70 inBMI: 29.3ALLERGIES: No Known Drug Allergy Date/Time Medication Administered Medication OrderedGiven VICODIN (5-325MG) [PO] Vicodin (5-325mg) PO 1 tab (HIGH20:32 (ACETAMINOPHEN-HYDROCODONE) ALERT MEDICATION)Grant Echevarria RN Dose: 1 tab Tablets PO Name Value Range Interpretation Code Description Data Trina rce(s) Supporting Document(s) ID Date Data Source [id number] 06/09/2021 06:05:00 PM EDT [facility] 1 General Instructions [facility] Emergency Department [address] [place] [address] Phone #: ext- [phone] 06/09/2021 17:59 [id number] Sex: M : 1945 Age: 75yRight knee effusionSingle contusion to the right knee.INSTRUCTIONSYou may walk and bear weight as tolerated.Warnings: GENERAL WARNINGS: Return or contact your physician immediately if your conditionworsens or changes unexpectedly, if not improving as expected, or if other problems arise.Your Current Medications: Your current home medications have been reviewed.CONTINUE TAKING THE FOLLOWING MEDICATIONS:Aspirin Oral : Tablet Chewable 81 mg, daily.dilTIAZem HCl Oral : Tablet 30 mg, 2x a day.Dulera Inhalation : Aerosol 200-5 mcg/act, 2x a day.Eliquis Oral : Tablet 5 mg, 2x a day.Ferrous Gluconate Oral : Tablet 324 (38 Fe) mg, daily.Januvia Oral : Tablet 50 mg, daily.Lasix Oral : 40 mg 2x a day.Latanoprost Ophthalmic : daily, at bedtime.Pantoprazole Sodium Oral : 40 mg daily.Pravastatin Sodium Oral : 20 mg daily.Spironolactone Oral : Tablet 25 mg, 1/2 tablet daily.Understanding of the discharge instructions verbalized by patient.Follow-up with: Hesham Macdonald, , , [address] [place] [address], [facility] Follow up in two if not well. Call for an appointment. Reason for referral: evaluation. ADDITIONAL INFORMATIONSoft Tissue Bruise (Contusion)You have a bruise (contusion). There is swelling and some bleeding under the skin. Thisinjury generally takes a few days to a few weeks to heal. During that time, the bruise will typicallychange in color from reddish, to purple-blue, to greenish-yellow, then to yellow-brown. 2 General Instructions [facility] Emergency Department [address] [place] [address] Phone #: ext- [phone] 06/09/2021 17:59 Patient: LALO LUNA Sex: M : 1945 Age: 75yHome care Elevate the injured area to reduce pain and swelling. As much as possible, sit or lie down with the injured area raised about the level of your heart. This is especially important during the first 48 hours. Ice the injured area to help reduce pain and swelling. Wrap an ice pack in a thin towel. Apply to the bruised area for 20 minutes every 1 to 2 hours the first day. Continue this 3 to 4 times a day until the pain and swelling goes away. You can make an ice pack by placing ice cubes in a plastic bag. Unless another medicine was prescribed, you can take acetaminophen, ibuprofen, or naproxen to control pain. Talk with your doctor before using these medicines if you have chronic liver or kidney disease or ever had a stomach ulcer or digestive bleeding.Follow-up careFollow up with your healthcare provider, or as advised. Call if you are not better in 1 to 2 weeks.When to seek medical adviceCall your healthcare provider right away if you have any of the following: Increased pain or swelling Bruise is on an arm or leg and arm or leg becomes cold, blue, numb or tingly Signs of infection: Warmth, drainage, or increased redness or pain around the contusion Inability to move the injured area or body part Bruise is near your eye and you have problems with your eyesight or eye Frequent bruising for unknown reasons [id number] [employer]. [address] [place] [address]. All rights reserved. This information is not intended as asubstitute for professional medical care. Always follow your healthcare professional's instructions.Fluid on the Knee 3 General Instructions [facility] Emergency Department [address] [place] [address] Phone #: ext- [phone] 06/09/2021 17:59 Patient: LALO LUNA Sex: M : 1945 Age: 75yFluid on the knee is also known as knee effusion. The knee joint normally has less than 1 ounce offluid. Injury or inflammation of the knee joint causes extra fluid to collect there. When this happens,the knee joint looks swollen and is often painful. It may be hard to fully bend the knee.The most common cause of fluid on the knee is osteoarthritis due to wear and tear on the jointcartil age. Other causes include injury to the cartilage, inflammatory arthritis such as gout orrheumatoid arthritis, and infection of the joint.If the cause of the fluid is not certain, you may need a needle aspiration. This procedure removes asample of joint fluid from the knee for testing. Removing excess fluid may also relieve swelling andpain.Home care Limit your activities. Stay off the injured leg as much as possible until pain improves. Keep your leg elevated to reduce pain and swelling. When sleeping, place a pillow under the injured leg. When sitting, support the injured leg so it is above heart level. This is very 4 General Instructions [facility] Emergency Department [address] [place] [address] Phone #: ext- [phone] 06/09/2021 17:59 Patient: LALO LUNA Sex: M : 1945 Age: 75y important during the first 48 hours. Apply an ice pack over the injured area for 15 to 20 minutes every 3 to 6 hours. You should do this for the first 24 to 48 hours. You can make an ice pack by filling a plastic bag that seals at the top with ice cubes and then wrapping it with a thin towel. Continue to use ice packs for relief of pain and swelling as needed. As the ice melts, be careful not to get your wrap, splint, or cast wet. After 48 hours, apply heat (warm shower or warm bath) for 15 to 20 minutes several times a day, or alternate ice and heat. If you have to wear a lbxz-cac-fbjo knee brace, you can open it to apply the ice pack, or heat, directly to the knee. Never put ice directly on the skin. Always wrap the ice in a towel or other type of cloth. You may use trbi-lxg-hywhtrd pain medicine to control pain, unless another pain medicine was prescribed. If you have chronic liver or kidney disease or have ever had a stomach ulcer or gastrointestinal bleeding, talk with your healthcare provider before using these medicines. If crutches or a walker have been recommended, don't put weight on the injured leg until you can do so without pain. Check with your healthcare provider before returning to sports or full work duties. If you have a geiv-rra-mkjg knee brace, you can remove it to bathe and sleep, unless told otherwise.Follow-up careFollow up with your healthcare provider as advised.If you are overweight, talk to your healthcare provider about a weight loss program. The excessweight puts extra strain on your knees.When to seek medical adviceCall your healthcare provider right away if any of these occur: Increasing pain, redness, or swelling of the knee Fever of 100.4F (38C) or above lasting for 24 to 48 hours, or as advised Shaking chills [phone] [employer]. [address] [place] [address]. All rights reserved. This information is not intended as asubstitute for professional medical care. Always follow your healthcare professional's instructions. You have been given the following additional information: Soft Tissue Contusion Knee Effusion 5 General Instructions [facility] Emergency Department [address] [place] [address] Phone #: ext- [phone] 06/09/2021 17:59 Patient: LALO LUNA Sex: M : 1945 Age: 75yYou may walk and bear weight as tolerated.(Electronically signed by Allan Willard 06/10/2021 01:11) Name Value Range Interpretation Code Description Data Trina rce(s) Supporting Document(s) ID Date Data Source [id number] 06/09/2021 06:05:00 PM EDT [facility] 1 Clinical Report - Nurses [facility] Emergency Department [address] [place] [address] Phone #: ext- [phone] 06/09/2021 17:59 Patient: LALO LUNA Sex: M : 1945 Age: 75yTRIAGEHistorian: patient.Triage time: 18:12 06/09/2021.( Pt was walking out onto his back deck and fell onto right side. States fall was mechanical. C/o pain toright upper leg, knee, and lower leg. States he hit his face and is on eliquis. Fall happened Thursday 06/07.).--18:20 06/09/21 Brody Oliverin18:12 06/09/21. BP: 141/72. MAP: 95. HR: 103. RR: 20. O2 saturation: 92% on nasal cannula at 3liters/minute. Temp: 97.9 F (oral). Pain level now: 3/10. Additional comments: Pt on 3L NC at all times. .--18:20 06/09/21 Alysha Olivercuity: LEVEL 3.Alert. No acute distress.SEPSIS SCREEN: SIRS SCREEN NEGATIVE. SEPSIS SCREEN NEGATIVE. No suspected or confirmedsigns of infection present. --18:29 06/09/21 Mounika Oliver Complaint: INJURY TO RIGHT KNEE. --18:30 06/09/21 Billy Oliver.Weight: 92.5 kg stated. Height/Length: 70 inches Per Patient. BMI: 29.3. --18:11 06/09/21 Billy Oliver.MedicationsPantoprazole Sodium Oral 40 mg, daily. --18:23 06/09/21 Melody, Billy Januvia Oral (Tablet 50 mg), daily. --18:23 06/09/21 Farman, Billy Spironolactone Oral (Tablet 25 mg) 1/2 tablet, daily. --18:23 06/09/21 Farman, Billy Lasix Oral 40 mg, 2x a day. --18:24 06/09/21 Farman, Billy Aspirin Oral (Tablet Chewable 81 mg), daily. --18:24 06/09/21 Farman, Billy Ferrous Gluconate Oral (Tablet 324 (38 Fe) mg), daily. --18:25 06/09/21 Melody, Billy Pravastatin Sodium Oral 20 mg, daily. --18:25 06/09/21 Melody, Billy Eliquis Oral (Tablet 5 mg), 2x a day. --18:25 06/09/21 Melody, Billy dilTIAZem HCl Oral (Tablet 30 mg), 2x a day. --18:06/09/21 Melody, Billy Dulera Inhalation (Aerosol 200-5 mcg/act), 2x a day. --18:06/09/21 Melody, Billy Latanoprost Ophthalmic, daily at bedtime. --18:27 06/09/21 Billy Oilver.AllergiesNo Known Drug Allergy. --18:22 06/09/21 Billy Oliver.PROBLEMS:COPD - Chronic Obstructive Pulmonary Disease. 2 Clinical Report - Nurses [facility] Emergency Department [address] [place] [address] Phone #: [phone] ext- [phone] 06/09/2021 17:59 Patient: LALO LUNA Sex: M : 1945 Age: 75yHypercholesterolemia.Congestive Heart Failure.Diabetes Mellitus.Gerd. --18:29 06/09/21 Billy Oliver.Medication/allergy information source: the patient. --18:20 06/09/21 Billy OliverMedication/allergy information source: the patient. 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 --18:29 06/09/21 Billy Oliver.HistorySOCIAL HX: Former smoker. No alcohol use or drug use. He was offered HIV testing but declined andhepatitis C testing but declined. He has not traveled outside the [place]Infectious disease exposure: The patient was not exposed to Coronavirus. Patient is not a known carrier oftuberculosis, hepatitis, HIV, MRSA or VRE. Patient is not a known carrier of CRE.SELF HARM ASSESSMENT: Self harm assessment was performed. The patient answered "no" to thequestion(s) "Do you have thoughts of harming or killing yourself?" and "Do you have a plan for harming orkilling yourself?".ABUSE ASSESSMENT: Abuse assessment. Abuse denied. No suspicion of abuse. No report of abuse.NUTRITIONAL RISK ASSESSMENT: The nutritional risk assessment revealed no deficiencies.FUNCTIONAL ASSESSMENT: Functional assessment: no impairments noted.LEARNING NEEDS ASSESSMENT: The learning needs assessment revealed no barriers.FALL RISK ASSESSMENT: Fall risk assessment completed. Risk factors identified include patient agegreater than 65 years, history of fall and impairment of mobility. Fall interventions initiated. Patient placed inwheelchair.SKIN INTEGRITY ASSESSMENT: Skin integrity risk assessment completed. No skin integrity riskidentified. --18:29 06/09/21 Billy Oliver.InterventionsIdentification band on patient. To waiting room. Advanced care plan (Full code). --18:29 06/09/21Billy Oliver.PHYSICAL ASSESSMENT 3 Clinical Report - Nurses [facility] Emergency Department [address] [place] [address] Phone #: ext- [phone] 06/09/2021 17:59 Patient: OATRIDGE, LALO E [facility]#: [id number] Sex: M : 1945 Age: 75y To room via wheelchair. GENERAL / NEURO / PSYCH: Oriented X 4. Alert. Appears in no acute distress. EXTREMITIES: Limited ROM present. Extremity pulses are within normal limits. He was unable to bear weight. Right knee: tenderness. SKIN: Skin intact. Skin is warm and dry. --20:36 06/09/21 Grant Echevarria RN.NURSING PROGRESS NOTES19:58 06/09/21. BP: 155/83. HR: 105. RR: 20. --19:59 06/09/21 [place] legal operations manager, DreaTROY Tech1 20:32 06/09/2021 VICODIN (5-325MG) (Acetaminophen-HYDROcodone) PO Tablets 1 tab given. Allergies verified and confirmed 5 rights. Information reviewed with patient including reason for taking this medication, signs of allergic reaction, precautions and sedative warning. Verbalizes understanding. --20:32 06/09/21 Grant Echevarria RN Reassurance given. Call light placed in reach. Bed placed in lowest position. Brakes of bed on. Patient ready for evaluation- ED physician notified. --20:37 06/09/21 Grant Echevarria RN.DISPOSITION / DISCHARGE [place] Coma Scale: 15- eyes open- spontaneous (4); best verbal response- oriented (5); best motor response- obeys commands (6). Condition at departure: unchanged. No learning barriers present. Discharge instructions provided and reviewed with the patient. Reviewed ice and elevation instructions. Reviewed referral to family practice for followup. Activity restrictions (minimal use of injured extremity) reviewed. Patient verbalized understanding. Written instructions provided in [place]. The patient was discharged home and accompanied by manager of security. He left in a wheelchair and via private vehicle. Cigar Packer driving. --22:31 06/09/21 Grant Echevarria RN 22:29 06/09/21. BP: 138/86 (regular adult cuff) taken on the left arm, via an automated monitor, while sitting. MAP: 103. HR: 88 (regular, normal rate and strong). RR: 20 (regular, unlabored and normal). O2 saturation: 98% on room air. Temp: 98.3 F (oral). Pain level now: 03/21. --22:31 06/09/21 Grant Echevarria RN Departure time: 22:32 06/09/2021. --22:32 06/09/21 Grant Echevarria RN.Locked/Released at 06/09/2021 22:32 by Grant Echevarria RN Name Value Range Interpretation Code Description Data Trina rce(s) Supporting Document(s) ID Date Data Source [id number] 06/09/2021 06:05:00 PM EDT [facility] 1 Clinical Report - Physicians/Mid Levels [facility] Emergency Department [address] [place] [address] Phone #: ext- [phone] 06/09/2021 17:59 Patient: LALO LUNA Sex: M : 1945 Age: 75y Time Seen: 20:27 06/09/2021. Arrived- By private vehicle. Historian- patient.HISTORY OF PRESENT ILLNESS Chief Complaint: Injury to right knee. The injury happened 2 days ago. Fell: This was not an incised wound. Occurred at home. Patient is experiencing severe pain. Patient also notes injury to the head. No injury to the neck. (Pain is worse with weight bearing. Patient tripped while walking onto porch. Struck head and nose on wooden deck. No LOC).REVIEW OF SYSTEMSThe patient complains of pain on weight bearing. He has had swelling. No tingling, weakness,numbness, suspected foreign body or skin laceration. No sweats, difficulty breathing, hematuria, insectbite or dizziness. No headache. He sustained skin laceration and has had easy bruising. All othersystems reviewed and are negative.PAST HISTORYSee nurses notes. Tetanus immunization status is up-to-date. Problems: COPD - Chronic Obstructive Pulmonary Disease. Hypercholesterolemia. Congestive Heart Failure. Diabetes Mellitus. Gerd. Additional Surgeries: Left leg arterial blockage. Total Hip Replacement. (Left) Vasectomy. Medications: Latanoprost Ophthalmic, daily at bedtime. Dulera Inhalation (Aerosol 200-5 mcg/act), 2x a day. dilTIAZem HCl Oral (Tablet 30 mg), 2x a day. Eliquis Oral (Tablet 5 mg), 2x a day. Pravastatin Sodium Oral 20 mg, daily. 2 Clinical Re port - Physicians/Mid Levels [facility] Emergency Department [address] [place] [address] Phone #: ext- [phone] 06/09/2021 17:59 Patient: LALO LUNA Sex: M : 1945 Age: 75y Ferrous Gluconate Oral (Tablet 324 (38 Fe) mg), daily. Aspirin Oral (Tablet Chewable 81 mg), daily. Lasix Oral 40 mg, 2x a day. Spironolactone Oral (Tablet 25 mg) 1/2 tablet, daily. Januvia Oral (Tablet 50 mg), daily. Pantoprazole Sodium Oral 40 mg, daily. Allergies: No Known Drug Allergy.SOCIAL HISTORYFormer smoker. No alcohol use.ADDITIONAL NOTESThe nursing notes have been reviewed.PHYSICAL EXAMVital Signs: 06/09/2021 18:12 BP: 141/72. MAP: 95. HR: 103. RR: 20. O2 saturation: 92% on nasalcannula at 3 liters/minute. Temp: 97.9 F. Pain level now: 01/19.Appearance: Alert. Oriented X3. Appears to be in pain.Head: No scalp tenderness. (Abrasion to nasal bridge. abrasion over left forehead).Eyes: Pupils equal, round and reactive to light. Eyes normal inspection.ENT: Nose normal. Pharynx normal.Neck: Normal inspection. Neck supple. C-spine non-tender.CVS: Abnormal rhythm. Heart sounds normal.Respiratory: No respiratory distress. No respiratory distress. Decreased air movement. Chestnontender.Abdomen: No visible injury. Soft.Back: Normal inspection. No tenderness. ROM normal.Skin: Skin intact. Skin warm and dry. Normal skin color. Normal skin turgor.Extremities: Lower extremity soft-tissue tenderness present. Lower extremity bony tenderness present.No signs of infection involving the lower extremities. Right knee: moderate tenderness and mild swellinglocated in the proximal tibia and distal femur. Limited ROM secondary to pain (diminished flexion andextension). Small joint effusion present. Ankle stable. Extremities otherwise negative. ( calvesnon-tender).Gait: Gait not tested due to pain.Neuro, Vascular and Tendons: Vascular status intact. Sensation intact.Neuro: Oriented X 3. No motor deficit. No sensory deficit.LABS, X-RAYS, AND EKGX-Rays: Right knee.Rt Knee X-ray: No fracture. Soft tissue swelling. Degenerative joint disease. Views: AP and lateral.The X-rays were independently viewed by me.PROGRESS AND PROCEDURES 3 Clinical Report - Physicians/Mid Levels [facility] Emergency Department [address] [place] [address] Phone #: ext- [phone] 06/09/2021 17:59 [id number] Sex: M : 1945 Age: 75y Course of Care: 22:19 06/09/21. CT head was done to rule out subdural hematoma. No deformities to right knee. Able to weight bear despite pain 01:05 06/10/21. Despite minor head injury, CT was obtained to rule out subdural. He is on anticoagulants. Patient/family counseled. Disposition: Discharged. Condition: stable.CLINICAL IMPRESSION Right knee effusion Single contusion to the right knee.INSTRUCTIONS You may walk and bear weight as tolerated. Warnings: GENERAL WARNINGS: Return or contact your physician immediately if your condition worsens or changes unexpectedly, if not improving as expected, or if other problems arise. Your Current Medications: Your current home medications have been reviewed. CONTINUE TAKING THE FOLLOWING MEDICATIONS: Aspirin Oral : Tablet Chewable 81 mg, daily. dilTIAZem HCl Oral : Tablet 30 mg, 2x a day. Dulera Inhalation : Aerosol 200-5 mcg/act, 2x a day. Eliquis Oral : Tablet 5 mg, 2x a day. Ferrous Gluconate Oral : Tablet 324 (38 Fe) mg, daily. Januvia Oral : Tablet 50 mg, daily. Lasix Oral : 40 mg 2x a day. Latanoprost Ophthalmic : daily, at bedtime. Pantoprazole Sodium Oral : 40 mg daily. Pravastatin Sodium Oral : 20 mg daily. Spironolactone Oral : Tablet 25 mg, 1/2 tablet daily. Understanding of the discharge instructions verbalized by patient. Follow-up with: Hesham Macdonald, , , [address], [place], [facility] Follow up in two if not well. Call for an appointment. Reason for referral: evaluation. 4 Clinical Report - Physicians/Mid Levels [facility] Emergency Department [address] [place] [address] Phone #: ext- [phone] 06/09/2021 17:59 Patient: LALO LUNA Sex: M : 1945 Age: 75y(Electronically signed by Allan Willard 06/10/2021 01:11) Name Value Range Interpretation Code Description Data Trina rce(s) Supporting Document(s) ID Date Data Source [id number] 06/09/2021 11:06:00 [place] [address] ---------NAME--------- NUMBER SEX AGE ADMIT DISC. XRAY# F/C TYPE PAPITO Cabrales [id number] M 75 06/09/21 06/09/21 [id number] MB4 E/R DATE OF : 1945 M/R# [id number] #: [id number] TR-07 LOCATION: EMERGENCY DEPT TRANSCRIBED: 06/09/21 23:[address] HEAD W/O CONTRAST [id number] COMPLETED:06/09/21 21:42 DLA [id number] Reason(s): Head Injury PHYSICIAN: ALVA Moody R A D I O L O G Y R E P O R T PATIENT HISTORY:ACTUAL DOSE 934.7 mGy*cm head injuryPatient male. Verification of 2 patient identifiers performed.Time Out performed. correct body part and side all verified prior toexamination. Exam has been sent to [facility] - If further informationis needed, the number is . Report will be faxed to ED and/orXray. / BRAIN (DICOM Hx)CT Head ( Brain )History:ACTUAL DOSE 934.7 mGy*cm head injury Patient male. Verification of 2 patientidentifiers performed. Time Out performed. correct body part and side allverified prior to examination. [facility] If further information is needed, the number is .Report will be faxed to ED and/or Xray. (Hx) / BRAIN (DICOM Hx)Technique:CT HEAD W/O CONTRASTDose length product (mGy-cm): Not providedReformations: OtherContrast: WithoutComparison:No comparison study provided.Findings:Brain:Ventricles and sulci show atrophy consistent with advanced age.Patchy low-attenuation areas in the deep white matter consistent with minimalsmall vessel ischemic white matter disease noted. This is likely senescentage-related atrophy with periventricular and subcortical white matterleukomalacia.There is no evidence for mass, mass effect or midline shift.No abnormal extra-axial fluid collection is noted. No intracranial bleed isnoted.The third and fourth ventricles are patent.Bony structures:Bony structures are unremarkable.Other:Mastoid air cells are within normal limits.Paranasal sinuses are normal.IMPRESSIONS:No acute intracranial process is noted.If clinical suspicion is incongruent with this finding or for greater clinicalcertainty, further evaluation with MRI scan may be of value.While performing the above CT examination, radiation dose reduction wasaccomplished utilizing automated exposure control, adjusting of the mA and kVbased on the patient's body size and/or the use of imperative reconstructivetechniques.Electronically Signed By:Jae Garay M.D. , RadiologistDate/Time: 06/09/21 23:06 Name Value Range Interpretation Code Description Data Trina rce(s) Supporting Document(s) ID Date Data Source [id number] 03/14/2021 04:48:06 PM EDT [facility] Name Value Range Interpretation Code Description Data Trina rce(s) Supporting Document(s) &PDF [facility] OZVJYy1iEaGLExKd88/EFJddSQWal6MtWMxuSAi6QYllANAaP9CdnRlnLV1OXISPGEoDFSWAARAPDBZf 0b3 JoOLJyAgMYrVS3NS5zRBBaidObicN1uU8cET3PROO+We6RWP4pr3FkYCb2NNNat3KoOEhdUAm5R3EatZ CocwVjNfeikMHYWSEyYNYbR4glnqa5nJZiYxG6Pj5FTnSjv2HfCECoKYeYxc1f197yFyk+v8C+wwCLXb FGfi3QB0Wt9HdIq8VXmZQKMbHlK9akAEB9aJzq2+Rp 7eX5fZxSFdw5F8OtYy7cKlf14tEhxil0eBBOuj0mj3cOBwhgeS2g/pnmWpxdib//Mjm8Un7bfpvHiMZ4 yGvQ6R9q/iKc8l2GIqRiaWCIxah4hIgQQmghiYINYZpix/DxY3QPh7PRaa8qm3IbUwYbh5sTSRpWeZZ2 ePocsgSGApa2hxspdO4EMAsBJndff4I4Oe4AlSonnn [file] V++f//whirley operator+270hXWMpB7H1OZi+TsT0IyVN/uAAS6JJi+n//40cKTvVXNzrZT7teO4A2N68cyelIFLe4q [file] AgICAgICAgICAgICAgICAgICAgICAgICAgICAgICAg ICAgICAgICAgICAgICAgICAgICAgICAgICAgDQogICAgICAgICAgICAgICAgICAgICAgICAgICAgICAg ICAgICAgICAgICAgICAgICAgICAgICAgICAgICAgICAgICAgICAgICAgICAgICAgICAgICAgICAgICAg ICAgICAgICAgDQogICAgICAgICAgICAgICAgICAgIC AgICAgICAgICAgICAgICAgICAgICAgICAgICAgICAgICAgICAgICAgICAgICAgICAgICAgICAgICAgIC AgICAgICAgICAgICAgICAgICAgDQogICAgICAgICAgICAgICAgICAgICAgICAgICAgICAgICAgICAgIC AgICAgICAgICAgICAgICAgICAgICAgICAgICAgICAg ICAgICAgICAgICAgICAgICAgICAgICAgICAgICAgDQogICAgICAgICAgICAgICAgICAgICAgICAgICAg ICAgICAgICAgICAgICAgICAgICAgICAgICAgICAgICAgICAgICAgICAgICAgICAgICAgICAgICAgICAg ICAgICAgICAgICAgDQogICAgICAgICAgICAgICAgIC AgICAgICAgICAgICAgICAgICAgICAgICAgICAgICAgICAgICAgICAgICAgICAgICAgICAgICAgICAgIC AgICAgICAgICAgICAgICAgICAgICAgDQogICAgICAgICAgICAgICAgICAgICAgICAgICAgICAgICAgIC AgICAgICAgICAgICAgICAgICAgICAgICAgICAgICAg ICAgICAgICAgICAgICAgICAgICAgICAgICAgICAgICAgDQogICAgICAgICAgICAgICAgICAgICAgICAg ICAgICAgICAgICAgICAgICAgICAgICAgICAgICAgICAgICAgICAgICAgICAgICAgICAgICAgICAgICAg ICAgICAgICAgICAgICAgDQogICAgICAgICAgICAgIC AgICAgICAgICAgICAgICAgICAgICAgICAgICAgICAgICAgICAgICAgICAgICAgICAgICAgICAgICAgIC AgICAgICAgICAgICAgICAgICAgICAgICAgDQogICAgICAgICAgICAgICAgICAgICAgICAgICAgICAgIC AgICAgICAgICAgICAgICAgICAgICAgICAgICAgICAg CGOrHLLaIOOqSAKkNJLsZRUuDVRdUPRpTQEfVLRhAPSfWGEdYXv2F8lyRLRyPNIrRW5qSLd1Nv4+DQoN ByOuGPK2xlLxwY8ECH3rj6IpALgqLSAnx9TuFSa1QN3NEZDnJPqfJC5UNXnivp5WWRGmZNMclTBBj7ub OxFwPWX5LGPqWhlkWY1BPCSnL9wvymTaPICpCMLVCD biJDMMGS4TGrLoI5MyzF09ONSKXb5+WGvvwaWaMwaZOnT7YOKqs7BjJIp2OG6WIBVxBOsmQY1WOHEydG 1nKCzoHY3FAcIoVxIhHEOKRkIuZ59knMCySDm3L6JcRtGxPIJfJignMRZyIXxuNbFxQMGhNxSnHVwyHG 4+ID4+OGoqEL7QDAclwgRtECXrNv5QFRNeOVP0FPIs bZTdKkveOGKAJJqyLC5FlIUuMUJ1qG0xYKloFOEdZRIeK9pQDuYwyKfaAF19oKguboKgvXKlVDq+Pg0K QD8jn2AiCNf5ufRuRNbzTVU6XBufFUSiVOZrRESvTJJ9JEU9DOHNYhOfLJGmTCJwCFrhMDImVLExpu5W VZGuXJVbQhU2SGVySLHmGDKiCOrbOYSgJJZ3DHB7DR IpCLMzFA1RPkRyHLChBTExTQTzSYXcIBLwdx3NTGZuETSeAAYiVEXnHTEqNVGbVJnsBLWzGVC1KlRzGG FkSZKrCF7BSvQlDNJhADY1EVOfFOCvUUQjgn6WGQJbZBWiGGb2GCDzIZPwYJHvWIjkUKOrKAE6FSRkXM EsUWTvCK2KYaVgOGInJFkoWGyjLDGmUCMtfr7GOWYf JFIiVuD5HRMjTLXxHUIcUFitJNQcGTH4OxN4MNAyEFPhMO7XFjFiZHTsKFr0PYTuBAYwTVZazi9RERCr ALGsAPBlDJKjLWGfHZHhMKbsSJZaJLE7IEv1CAOzGHBwBZ8LPtAxDFUnBHj0TCvgXYNpDQQujx1PENOd EDHrYQx9ZvSrEDLzCLWlBUkoDHPnQGHzVJUpTYGdAU CwVY4UZdFaIJBrVFMsWfRsHLIvFXEirn3PJWHlMMVkUKUkTMLdETXgWVMvKSnkCJQqOLSkQuInVWZqIQ PqRV2YNdDbOUFsGXC7QahaXAGnXDBmsp7AWFSiDHZsRtA4QBVeDDEyEOMjVMjjSCOxHVDhKSH4KJDoRH TmGF7URrZbTQMaSJI3DqJaNHMsSXArnm7ALVGcCAYm ZcF2ZTQnRVMvPAUhOWsnWXLcLUItUMl8HJXrVCChPU1OIzVrKOXvCREkZnBkBTCmWVAcqe3TyIUnwHfx nk3TKFqQXq7SbHhvXYH2MQdrIn5fjSOoCQNfCSXJGb8DzzHqLXOeJAFOQEwvYRAkHWX2YAVwHYAtTLQq NLSrEqCqKtMxBVdaGvNoGgH3NHX9JwC2OOGzHqUiMS MuIbCiGcSfQ6BzDQZtV6AyXBCaDUIxOYO+OF5jENb+Sq5Fb4PuzyN4wdMoSOtaMVHrOO1SMASOL2PTYe == ID Date Data Source [id number] 03/01/2021 02:31:00 PM EDT [facility] ([facility] Name Value Range Interpretation Code Description Data Trina rce(s) Supporting Document(s) Hemoglobin A1c/Hemoglobin.total in Blood 6.2 % 4.50-6.20 [facility] ([facility] ID Date Data Source [id number] 03/01/2021 02:31:00 PM EDT [facility] ([facility] Name Value Range Interpretation Code Description Data Trina rce(s) Supporting Document(s) Trig 125 mg/dL 35-200 [facility] ([facility] NORMAL RANGES Age WBC [...] HCT IS 5% LESS SOURCE FOR DATA: buuteeq 1800 OPERATION MANUAL( AUTOMATED BLOOD COUNTS AND [...] ADOLESCENTS REPRESENTS INDIVIDUALA AGED 2-19 YEARS EXCLUSIVE. Chol 136 mg/dL 0-200 [facility] NORMAL [...] HCT IS 5% LESS SOURCE FOR DATA: buuteeq 1800 OPERATION MANUAL( AUTOMATED BLOOD COUNTS AND [...] Serum or Plasma 46 mg/dL 35-55 [facility] ([facility] [...] HCT IS 5% LESS SOURCE FOR DATA: buuteeq 1800 OPERATION MANUAL( AUTOMATED BLOOD COUNTS AND [...] LDL_C 65 Calc 75-129 Below low normal [facility] ( [facility] NORMAL RANGES Age WBC [...] HCT IS 5% LESS SOURCE FOR DATA: buuteeq 1800 OPERATION MANUAL( AUTOMATED BLOOD COUNTS AND [...] 2-19 YEARS EXCLUSIVE. Cho/HDL Ratio 2.9 CALC [email or web address] ([facility] NORMAL RANGES Age WBC RBC HGB [...] HCT IS 5% LESS SOURCE FOR DATA: buuteeq 1800 OPERATION MANUAL( AUTOMATED BLOOD COUNTS AND [...] 2-19 YEARS EXCLUSIVE. ID Date Data Source [id number] 03/01/2021 02:31:00 PM EDT [facility] ([facility] Name Value Range Interpretation Code Description Data Trina rce(s) Supporting Document(s) Glu 119 mg/dL 70-110 Above high normal [facility] ([facility] NORMAL RANGES Age WBC [...] HCT IS 5% LESS SOURCE FOR DATA: buuteeq 1800 OPERATION MANUAL( AUTOMATED BLOOD COUNTS AND [...] REPRESENTS INDIVIDUALA AGED 2-19 YEARS EXCLUSIVE. BUN 22 mg/dL 8-23 [facility] NORMAL RANGES Age WBC [...] HCT IS 5% LESS SOURCE FOR DATA: buuteeq 1800 OPERATION MANUAL( AUTOMATED BLOOD COUNTS AND [...] HCT IS 5% LESS SOURCE FOR DATA: buuteeq 1800 OPERATION MANUAL( AUTOMATED BLOOD COUNTS AND [...] INDIVIDUALA AGED 2-19 YEARS EXCLUSIVE. BUN/Creatinine Ratio 36.7 CALC [facility] ([facility] NORMAL RANGES Age WBC [...] HCT IS 5% LESS SOURCE FOR DATA: buuteeq 1800 OPERATION MANUAL( AUTOMATED BLOOD COUNTS AND [...] REPRESENTS INDIVIDUALA AGED 2-19 YEARS EXCLUSIVE. Na 139 mmol/L 136-145 [facility] ([facility] NORMAL RANGES Age WBC RBC [...] HCT IS 5% LESS SOURCE FOR DATA: buuteeq 1800 OPERATION MANUAL( AUTOMATED BLOOD COUNTS AND [...] REPRESENTS INDIVIDUALA AGED 2-19 YEARS EXCLUSIVE. K 4.2 mmol/L 3.5-5.1 [facility] ([facility] NORMAL [...] HCT IS 5% LESS SOURCE FOR DATA: buuteeq 1800 OPERATION MANUAL( AUTOMATED BLOOD COUNTS AND [...] REPRESENTS INDIVIDUALA AGED 2-19 YEARS EXCLUSIVE. CL 100.9 mmol/L 98.0-107.0 [facility] ([facility] NORMAL RANGES Age WBC RBC [...] HCT IS 5% LESS SOURCE FOR DATA: buuteeq 1800 OPERATION MANUAL( AUTOMATED BLOOD COUNTS AND [...] REPRESENTS INDIVIDUALA AGED 2-19 YEARS EXCLUSIVE. Co2 32.3 mmol/L 22.0-29.0 Above high normal [facility] ([facility] [...] REPRESENTS INDIVIDUALA AGED 2-19 YEARS EXCLUSIVE. CA 8.9 mg/dL 8.6-10.2 [facility] ([facility] NORMAL [...] HCT IS 5% LESS SOURCE FOR DATA: buuteeq 1800 OPERATION MANUAL( AUTOMATED BLOOD COUNTS AND [...] REPRESENTS INDIVIDUALA AGED 2-19 YEARS EXCLUSIVE. TP 6.3 g/dL 6.6-8.7 Below low normal [facility] ( [...] HCT IS 5% LESS SOURCE FOR DATA: buuteeq 1800 OPERATION MANUAL( AUTOMATED BLOOD COUNTS AND [...] INDIVIDUALA AGED 2-19 YEARS EXCLUSIVE. A/G Ratio 1.7 CALC [facility] ([facility] NORMAL [...] HCT IS 5% LESS SOURCE FOR DATA: buuteeq 1800 OPERATION MANUAL( AUTOMATED BLOOD COUNTS AND [...] 2-19 YEARS EXCLUSIVE. Alb 4.0 g/dL 3.5-5.2 [facility] ([facility] [...] HCT IS 5% LESS SOURCE FOR DATA: buuteeq 1800 OPERATION MANUAL( AUTOMATED BLOOD COUNTS AND [...] REPRESENTS INDIVIDUALA AGED 2-19 YEARS EXCLUSIVE. Alp 93.0 U/L 40-129 [facility] ([facility] NORMAL RANGES Age WBC [...] HCT IS 5% LESS SOURCE FOR DATA: buuteeq 1800 OPERATION MANUAL( AUTOMATED BLOOD COUNTS AND [...] REPRESENTS INDIVIDUALA AGED 2-19 YEARS EXCLUSIVE. Globulin 2.3 CALC [facility] ([facility] [...] HCT IS 5% LESS SOURCE FOR DATA: buuteeq 1800 OPERATION MANUAL( AUTOMATED BLOOD COUNTS AND [...] YEARS EXCLUSIVE. Ast (Sgot) 11 U/L 0-40 [facility] ([facility] NORMAL [...] HCT IS 5% LESS SOURCE FOR DATA: buuteeq 1800 OPERATION MANUAL( AUTOMATED BLOOD COUNTS AND [...] INDIVIDUALA AGED 2-19 YEARS EXCLUSIVE. Alt (SGPT) 8 U/L 0-41 [facility] NORMAL RANGES Age WBC RBC [...] HCT IS 5% LESS SOURCE FOR DATA: buuteeq 1800 OPERATION MANUAL( AUTOMATED BLOOD COUNTS AND [...] REPRESENTS INDIVIDUALA AGED 2-19 YEARS EXCLUSIVE. Osmolality-Calculated 282.3 [facility] ([facility] [...] HCT IS 5% LESS SOURCE FOR DATA: [employer] DYN 1800 OPERATION MANUAL( AUTOMATED BLOOD COUNTS [...] REPRESENTS INDIVIDUALA AGED 2-19 YEARS EXCLUSIVE. Tbili 0.18 mg/dL 0.0-1.2 [facility] ([facility] NORMAL [...] HCT IS 5% LESS SOURCE FOR DATA: buuteeq 1800 OPERATION MANUAL( AUTOMATED BLOOD COUNTS AND [...] INDIVIDUALA AGED 2-19 YEARS EXCLUSIVE. Anion Gap 10 mmol/L [facility] ([facility] NORMAL RANGES Age [...] HCT IS 5% LESS SOURCE FOR DATA: buuteeq 1800 OPERATION MANUAL( AUTOMATED BLOOD COUNTS AND [...] YEARS EXCLUSIVE. eGFR 112 # [facility] ( [facility] CKD-EPI eGFR Non-Afr. German 97 # [facility] ([facility] CKD-EPI ID Date Data Source [id number] 03/01/2021 02:31:00 PM EDT [facility] ([facility] Name Value Range Interpretation Code Description Data Trina rce(s) Supporting Document(s) Creatine kinase [Enzymatic activity/volume] in Serum or Plasma 55 U /L 39-308 [facility] ([facility] NORMAL RANGES Age WBC [...] HCT IS 5% LESS SOURCE FOR DATA: buuteeq 1800 OPERATION MANUAL( AUTOMATED BLOOD COUNTS AND [...] 2-19 YEARS EXCLUSIVE. ID Date Data Source [id number] 03/01/2021 02:31:00 PM EDT [facility] ([facility] Name Value Range Interpretation Code Description Data Trina rce(s) Supporting Document(s) WBC 7.0 10E3/uL 4.1-10.9 [facility] ([facility] NORMAL RANGES Age WBC RBC [...] HCT IS 5% LESS SOURCE FOR DATA: buuteeq 1800 OPERATION MANUAL( AUTOMATED BLOOD COUNTS AND [...] REPRESENTS INDIVIDUALA AGED 2-19 YEARS EXCLUSIVE. RBC 4.77 10E6/uL 4.20-6.30 [facility] ([facility] NORMAL RANGES [...] HCT IS 5% LESS SOURCE FOR DATA: buuteeq 1800 OPERATION MANUAL( AUTOMATED BLOOD COUNTS AND [...] REPRESENTS INDIVIDUALA AGED 2-19 YEARS EXCLUSIVE. HGB 11.4 g/dL 12.0-18.0 Below low normal [facility] ( [...] HCT IS 5% LESS SOURCE FOR DATA: buuteeq 1800 OPERATION MANUAL( AUTOMATED BLOOD COUNTS AND [...] REPRESENTS INDIVIDUALA AGED 2-19 YEARS EXCLUSIVE. HCT 41.2 % 37.0-51.0 [facility] ([facility] NORMAL RANGES Age WBC [...] HCT IS 5% LESS SOURCE FOR DATA: buuteeq 1800 OPERATION MANUAL( AUTOMATED BLOOD COUNTS AND [...] REPRESENTS INDIVIDUALA AGED 2-19 YEARS EXCLUSIVE. MCV 86.4 fL 80.0-97.0 [facility] ([facility] NORMAL [...] HCT IS 5% LESS SOURCE FOR DATA: buuteeq 1800 OPERATION MANUAL( AUTOMATED BLOOD COUNTS AND [...] REPRESENTS INDIVIDUALA AGED 2-19 YEARS EXCLUSIVE. MCH 23.9 pg 26.0-32.0 Below low normal [facility] ( [...] HCT IS 5% LESS SOURCE FOR DATA: buuteeq 1800 OPERATION MANUAL( AUTOMATED BLOOD COUNTS AND [...] REPRESENTS INDIVIDUALA AGED 2-19 YEARS EXCLUSIVE. MCHC 27.7 g/dL 31.0-36.0 Below low normal [facility] ( [...] REPRESENTS INDIVIDUALA AGED 2-19 YEARS EXCLUSIVE. PLT 295 10E3/uL 140-440 [facility] ([facility] NORMAL RANGES Age WBC RBC [...] HCT IS 5% LESS SOURCE FOR DATA: buuteeq 1800 OPERATION MANUAL( AUTOMATED BLOOD COUNTS AND [...] REPRESENTS INDIVIDUALA AGED 2-19 YEARS EXCLUSIVE. RDW-CV 18.9 % 11.5-14.5 Above high normal [facility] ([facility] [...] HCT IS 5% LESS SOURCE FOR DATA: buuteeq 1800 OPERATION MANUAL( AUTOMATED BLOOD COUNTS AND [...] REPRESENTS INDIVIDUALA AGED 2-19 YEARS EXCLUSIVE. Neut% 71.3 % 37.0-92.0 [facility] ([facility] NORMAL [...] HCT IS 5% LESS SOURCE FOR DATA: [employer] DYN 1800 OPERATION MANUAL( AUTOMATED BLOOD COUNTS [...] REPRESENTS INDIVIDUALA AGED 2-19 YEARS EXCLUSIVE. Lym% 21.4 % 10.0-58.5 [facility] ([facility] NORMAL [...] HCT IS 5% LESS SOURCE FOR DATA: buuteeq 1800 OPERATION MANUAL( AUTOMATED BLOOD COUNTS AND [...] REPRESENTS INDIVIDUALA AGED 2-19 YEARS EXCLUSIVE. MXD% 7.3 % 0.1-24.0 [facility] ([facility] [...] HCT IS 5% LESS SOURCE FOR DATA: [employer] DYN 1800 OPERATION MANUAL( AUTOMATED BLOOD COUNTS [...] 2-19 YEARS EXCLUSIVE. Lym# 1.5 10E3/uL 0.6-4.1 [email or web address] ([facility] NORMAL RANGES Age WBC RBC [...] HCT IS 5% LESS SOURCE FOR DATA: buuteeq 1800 OPERATION MANUAL( AUTOMATED BLOOD COUNTS AND [...] REPRESENTS INDIVIDUALA AGED 2-19 YEARS EXCLUSIVE. Neut# 5.0 % 2.0-7.8 [facility] ([facility] NORMAL [...] HCT IS 5% LESS SOURCE FOR DATA: buuteeq 1800 OPERATION MANUAL( AUTOMATED BLOOD COUNTS AND [...] REPRESENTS INDIVIDUALA AGED 2-19 YEARS EXCLUSIVE. MXD# 0.5 10E3/uL 0.0-1.8 [facility] ([facility] NORMAL RANGES Age WBC RBC [...] HCT IS 5% LESS SOURCE FOR DATA: buuteeq 1800 OPERATION MANUAL( AUTOMATED BLOOD COUNTS AND [...] REPRESENTS INDIVIDUALA AGED 2-19 YEARS EXCLUSIVE. MPV 10.8 fL 9.0-13.0 [facility] ([facility] NORMAL [...] HCT IS 5% LESS SOURCE FOR DATA: buuteeq 1800 OPERATION MANUAL( AUTOMATED BLOOD COUNTS AND [...] ADOLESCENTS REPRESENTS INDIVIDUALA AGED 2-19 YEARS EXCLUSIVE. Comment Laboratory test result [facility] ([facility] NORMAL RANGES [...] HCT IS 5% LESS SOURCE FOR DATA: buuteeq 1800 OPERATION MANUAL( AUTOMATED BLOOD COUNTS AND [...] 2-19 YEARS EXCLUSIVE. ID Date Data Source [id number] 12/31/2020 02:57:00 PM EST [facility] ([facility] Name Value Range Interpretation Code Description Data Trina rce(s) Supporting Document(s) Leukocytes [#/volume] in Blood by Automated count 10.0 x10E3/uL 3.4-1 0.8 [facility] ([facility] Erythrocytes [#/volume] in Blood by Automated count 4.47 x10E6/uL 4.1 4-5.80 [facility] ([facility] Hemoglobin [Mass/volume] in Blood 9.8 g/dL 13.0-17.7 Below low nor mal [facility] ([facility] Hematocrit [Volume Fraction] of Blood by Automated count 34.5 % 37.5-51.0 Below low normal [facility] ([facility] ) Erythrocyte mean corpuscular volume [Entitic volume] by Auto mated count 77 fL 79-97 Below low normal [facility] Erythrocyte mean corpuscular hemoglobin [Entitic mass] by Automated count 21.9 pg 26.6-33.0 Below low normal [facility] ([facility] Erythrocyte mean corpuscular hemoglobin concentration [Mass/volume] by Automated count 28.4 g/dL 31.5-35.7 Below low normal [facility] ([facility] Erythrocyte distribution width [Ratio] by Automated count 16.1 % 11.6-15.4 Above high normal [facility] ([facility] ) Lymphs 8 % [facility] ([facility] Platelets [#/volume] in Blood by Automated count 316 x10E3/uL 150-450 [facility] ([facility] Neutrophils 80 % [facility] ([facility] Eosinophils/100 leukocytes in Blood by Automated count 3 % [facility] ([facility] Monocytes/100 leukocytes in Blood by Automated count 9 % [facility] ([facility] Basophils/100 leukocytes in Blood by Automated count 0 % [facility] ([facility] Neutrophils [#/volume] in Blood by Automated count 7.9 x10E3/uL 1.4-7.0 Above high normal [facility] ([facility] ) Immature cells [#/volume] in Blood Laboratory test result [facility] ([facility] Monocytes [#/volume] in Blood 0.9 x10E3/uL 0.1-0.9 [facility] ([facility] Lymphocytes [#/volume] in Blood 0.8 x10E3/uL 0.7-3.1 [facility] ([facility] Immature granulocytes/100 leukocytes in Blood by Automated count 0 % [facility] ([facility] Eosinophils [#/volume] in Blood by Automated count 0.3 x10E3/uL 0.0-0 .4 [facility] ([facility] Basophils [#/volume] in Blood by Automated count 0.0 x10E3/uL 0.0-0.2 [facility] ([facility] Immature granulocytes [#/volume] in Blood by Automated count 0.0 x10E3/uL 0.0-0.1 [facility] Nucleated erythrocytes/100 leukocytes [Ratio] in Blood by Automated count Laboratory test result [facility] ([facility] Morphology [Interpretation] in Blood Narrative Laboratory test result [facility] ([facility] ID Date Data Source [id number] 12/14/2020 03:50:00 PM EST [facility] ([facility] Name Value Range Interpretation Code Description Data Trina rce(s) Supporting Document(s) Influenza A Amplification Laboratory test result Normal (applies to non- numeric results) [facility] ([facility] ) Negative results do not preclude influen za or RSV virus infection and should not be used as the sole basis for treatment or other patient management decisions. Influenza B Amplification Laboratory test result Normal (applies to non- numeric results) [facility] ([facility] ) Negative results do not preclude influen za or RSV virus infection and should not be used as the sole basis for treatment or other patient management decisions. RSV Amplification Laboratory test result Normal (applies to non-numeric results) [facility] ([facility] ) Negative results do not preclude influen za or RSV virus infection and should not be used as the sole basis for treatment or other patient management decisions. Laboratory test finding (navigational concept) Laboratory test r esult Normal (applies to non-numeric results) [facility] ([facility] A false negative result may occur if a s pecimen is improperly collected, transported or handled. False negative results may also occur if inadequate numbers of organisms are present in the specimen. As with any molecular test, mutations within the target regions of Xpert Xpress SARS-CoV-2 could affect primer and/or probe binding resulting in failure to detect the presence of virus. This test cannot rule out diseases caused by other bacterial or viral pathogens. DISCLAIMER: Testing was performed using the [employer] SARS-CoV-2 test. This test was developed and its performance characteristics determined by [employer]. This test has not been FDA cleared or approved. This test has been authorized by FDA under an Emergency Use Authorization (EUA). This test is only authorized for the duration of time the declaration that circumstances exist justifying the authorization of the emergency use of in vitro diagnostic tests for detection of SARS-CoV-2 virus and/or diagnosis of COVID-19 infection under section 564(b)(1) of the Act, 21 U.S.C. 360bbb-3(b)(1), unless the authorization is terminated or revoked sooner. ID Date Data Source [id number] 12/14/2020 03:50:00 PM EST [facility] Name Value Range Interpretation Code Description Data Trina rce(s) Supporting Document(s) SARS coronavirus 2 RNA [Presence] in Res piratory specimen by ANNALISE with probe detection NEGATIVE [facility] This lab was ordered by [facility] a nd reported by [facility]. ID Date Data Source [id number] 12/14/2020 02:07:00 PM EST [facility] ([facility] Name Value Range Interpretation Code Description Data Trina rce(s) Supporting Document(s) Blood Type Laboratory test result Normal (applies to non-n umeric results) [facility] ([facility] AB Screen (Indirect Debo)Vis Laboratory test result Normal (applies to non- numeric results) [facility] ([facility] ) ID Date Data Source [id number] 12/14/2020 02:07:00 PM EST [facility] ([facility] Name Value Range Interpretation Code Description Data Trina rce(s) Supporting Document(s) Lipoprotein lipase [Enzymatic activity/volume] in Serum or P lasma 128 U/L 73-393 Normal (applies to non-numeric results) [facility] ([facility] ID Date Data Source [id number] 12/14/2020 02:07:00 PM EST [facility] ([facility] Name Value Range Interpretation Code Description Data Trina rce(s) Supporting Document(s) Glucose, Fasting 133 mg/dL 70-100 Above high normal [facility] ([facility] Blood Urea Nitrogen 27 mg/dL 7-18 Above high normal [facility] ([facility] Glomerular Filtration Rate Laboratory test result Normal (applies to non- numeric results) [facility] ([facility] ) <content>Units are mL/min/1.73 m2</content>
<content></content>
<content>Chronic Kidney Disease Staging per NKF:</content>
<content></content>
<content>Stage I & II GFR >=60 Normal to Mildly Decreased</content>
<content>Stage III GFR 30-59 Moderately Decreased</content>
<content>Stage IV GFR 15-29 Severely Decreased</content>
<content>Stage V GFR <15 Very Little GFR Left</content>
<content>ESRD GFR <15 on SECURITY RESEARCHER</content>
<content></content> Creatinine For GFR 0.75 mg/dL 0.70-1.30 Normal (applies to non -numeric results) [facility] ([facility] Potassium Serum 4.1 meq/L 3.5-5.1 Normal (applies to non-numeric results) [facility] ([facility] Sodium Level 140 meq/L 136-145 Normal (applies to non-numeric res ults) [facility] ([facility] Chloride Level 100 meq/L 98-107 Normal (applies to non-numeric r esults) [facility] ([facility] Carbon Dioxide Level 38 meq/L 21-32 Above high normal [facility] ([facility] Calcium Level 8.5 mg/dL 8.8-10.2 Below low normal [facility] ([facility] Anion Gap 2 meq/L 8-16 Below low normal [facility] ( [facility] ID Date Data Source [id number] 12/14/2020 02:07:00 PM EST [facility] ([facility] Name Value Range Interpretation Code Description Data Trina rce(s) Supporting Document(s) Ast/Sgot 15 U/L 7-37 Normal (applies to non-numeric resul ts) [facility] ([facility] Alt/SGPT 18 U/L 12-78 Normal (applies to non-numeric resul ts) [facility] ([facility] Alkaline Phosphatase 85 U/L 45-117 Normal (applies to non-num tammy results) [facility] ([facility] Bilirubin,Total 0.3 mg/dL 0.2-1.0 Normal (applies to non-numeric results) [facility] ([facility] Bilirubin,Direct 0.1 mg/dL 0.0-0.2 Normal (applies to non-numeric results) [facility] ([facility] Total Protein 7.1 GM/DL 6.4-8.2 Normal (applies to non-numeric re sults) [facility] ([facility] Albumin 3.5 GM/DL 3.2-5.2 Normal (applies to non-numeric resul ts) [facility] ([facility] Albumin/Globulin Ratio 1.0 Normal (applies to non-n umeric results) [facility] ([facility] ID Date Data Source [id number] 12/14/2020 02:07:00 PM EST [facility] ([facility] Name Value Range Interpretation Code Description Data Trina rce(s) Supporting Document(s) CPK Creatine Phosphokinase 71 U/L 39-308 Yulissa l (applies to non-numeric results) [facility] ([facility] ) CK-MB Value Mass 3.8 ng/mL Above high normal [facility] ([facility] MB/CK Relative Index 5.35 Above high normal [facility] ([facility] <content>DIAGNOSIS CRITERIA</content>
<content>MMB ng/ml Relative Index (RI)</content>
<content>NON-AMI < or = 5 N/A</content>
<content>ORTA ZONE > 5 < or = 4</content>
<content>AMI > 5 > 4</content>
<content></content> Troponin I Laboratory test result Normal (applies to non-n umeric results) [facility] ([facility] <content>Troponin I Reference Interval f or [employer] [place] LOCI:</content>
<content></content>
<content>99th Percentile= 0.00-0.045 ng/ml</content>
<content></content>
<content>Risk Stratification:</content>
<content><= 0.10 ng/ml Decreased Risk for Adverse Clinical</content>
<content>Events.</content>
<content>0.10-1.50 ng/ml Increased Risk for Adverse Clinical</content>
<content>Events. Evaluation of additional</content>
<content>criterion and/or repeat testing in 2-6</content>
<content>hours is suggested to rule out myocardial</content>
<content>damage.</content>
<content>>= 1.50 ng/ml Indicative of Myocardial Injury.</content>
<content></content> ID Date Data Source [id number] 12/14/2020 02:07:00 PM EST [facility] ([facility] Name Value Range Interpretation Code Description Data Trina rce(s) Supporting Document(s) aPTT in Platelet poor plasma by Coagulation assay 32.9 s 24.2-38.5 Normal (applies to non-numeric results) [facility] ([facility] ID Date Data Source [id number] 12/14/2020 02:07:00 PM EST [facility] ([facility] Name Value Range Interpretation Code Description Data Trina rce(s) Supporting Document(s) Prothrombin Time 15.0 s 12.5-14.3 Above high normal [facility] ([facility] Inr 1.15 Normal (applies to non-numeric resul ts) [facility] ([facility] THERAPUTIC HUMAN INR VALUES INDICATIONS NORMAL RANGES PROPHYLAXIS/TREATMENT OF: VENOUS THROMBOSIS 2.0-3.0 PULMONARY EMBOLISM 2.0-3.0 PREVENTION OF SYSTEMIC EMBOLISM FROM: TISSUE HEART VALVES 2.0-3.0 ACUTE MYOCARDIAL INFARCTION 2.0-3.0 VALVULAR HEART DISEASE 2.0-3.0 ATRIAL FIBRILLATION 2.0-3.0 MECHANICAL VALVES(HIGH RISK) 2.5-3.5 RECURRENT MYOCARDIAL INFARCTION 2.5-3.5 ID Date Data Source [id number] 12/14/2020 02:07:00 PM EST [facility] ([facility] Name Value Range Interpretation Code Description Data Trina rce(s) Supporting Document(s) White Blood Count 10.9 10 4.0-10.0 Above high normal [facility] ([facility] Red Blood Count 4.73 10 4.30-6.10 Normal (applies to non-numeric results) [facility] ([facility] Hemoglobin 10.6 g/dL 13.5-17.5 Below low normal [facility] ( [facility] Hematocrit 38.9 % 42.0-52.0 Below low normal [facility] ( [facility] Mean Corpuscular Volume 82.2 fl 80.0-96.0 Normal ( applies to non-numeric results) [facility] ([facility] ) Mean Corpuscular Hemoglobin 22.4 pg 27.0-33.0 Below low normal [facility] ([facility] Mean Corpuscular HGB Conc 27.2 g/dL 32.0-36.5 Below low normal [facility] ([facility] Red Cell Distribution Width 17.1 % 11.5-14.5 Above high normal [facility] ([facility] Platelet Count, Automated 325 10 150-450 Normal (applies to non-numeric results) [facility] ([facility] ) Lymph % 13.1 % 24.0-44.0 Below low normal [facility] ( [facility] Neutrophils % 74.9 % 36.0-66.0 Above high normal [facility] ([facility] Douglas % 8.5 % 0.0-5.0 Above high normal [facility] ([facility] Baso % 0.3 % 0.0-1.0 Normal (applies to non-numeric resul ts) [facility] ([facility] Eos % 2.7 % 0.0-3.0 Normal (applies to non-numeric resul ts) [facility] ([facility] Nucleated Red Blood Cell % 0.0 % 0-0 Normal (applies to n on-numeric results) [facility] ([facility] Immature Granulocyte % 0.5 % 0-3.0 Normal (applies to non-n umeric results) [facility] ([facility] Neutrophils # 8.2 10 1.5-8.5 Normal (applies to non-numeric re sults) [facility] ([facility] Lymph # 1.4 10 1.5-5.0 Below low normal [facility] ( [facility] Douglas # 0.9 10 0.0-0.8 Above high normal [facility] ([facility] Eos # 0.3 10 0.0-0.5 Normal (applies to non-numeric resul ts) [facility] ([facility] Baso # 0.0 10 0.0-0.2 Normal (applies to non-numeric resul ts) [facility] ([facility] ID Date Data Source [id number] 11/30/2020 02:11:00 PM EST [facility] ([facility] Name Value Range Interpretation Code Description Data Trina rce(s) Supporting Document(s) Hemoglobin A1c/Hemoglobin.total in Blood 7.6 % 4.50-6.20 Above high normal [facility] ([facility] ID Date Data Source [id number] 11/30/2020 01:40:00 PM EST [facility] ([facility] Name Value Range Interpretation Code Description Data Trina rce(s) Supporting Document(s) WBC 9.4 10E3/uL 4.1-10.9 MED[facility] ([facility] NORMAL RANGES Age WBC RBC [...] HCT IS 5% LESS SOURCE FOR DATA: buuteeq 1800 OPERATION MANUAL( AUTOMATED BLOOD COUNTS AND [...] YEARS EXCLUSIVE. RBC 4.69 10E6/uL 4.20-6.30 ALAN ([facility] NORMAL RANGES Age WBC [...] HCT IS 5% LESS SOURCE FOR DATA: buuteeq 1800 OPERATION MANUAL( AUTOMATED BLOOD COUNTS AND [...] HGB 10.7 g/dL 12.0-18.0 Below low normal [facility] ( [facility] NORMAL RANGES Age WBC [...] HCT IS 5% LESS SOURCE FOR DATA: buuteeq 1800 OPERATION MANUAL( AUTOMATED BLOOD COUNTS AND [...] 2-19 YEARS EXCLUSIVE. HCT 38.9 % 37.0-51.0 [facility] ([facility] NORMAL [...] HCT IS 5% LESS SOURCE FOR DATA: [employer] DYN 1800 OPERATION MANUAL( AUTOMATED BLOOD COUNTS [...] 2-19 YEARS EXCLUSIVE. MCV 82.9 fL 80.0-97.0 [facility] ([facility] NORMAL [...] HCT IS 5% LESS SOURCE FOR DATA: buuteeq 1800 OPERATION MANUAL( AUTOMATED BLOOD COUNTS AND [...] MCH 22.8 pg 26.0-32.0 Below low normal [facility] ( [facility] NORMAL RANGES Age WBC [...] HCT IS 5% LESS SOURCE FOR DATA: buuteeq 1800 OPERATION MANUAL( AUTOMATED BLOOD COUNTS AND [...] 2-19 YEARS EXCLUSIVE. PLT 323 10E3/uL 140-440 [facility] ([facility] NORMAL RANGES Age WBC RBC [...] HCT IS 5% LESS SOURCE FOR DATA: buuteeq 1800 OPERATION MANUAL( AUTOMATED BLOOD COUNTS AND [...] HCT IS 5% LESS SOURCE FOR DATA: buuteeq 1800 OPERATION MANUAL( AUTOMATED BLOOD COUNTS AND [...] RDW-CV 16.0 % 11.5-14.5 Above high normal [facility] ([facility] NORMAL RANGES Age WBC [...] HCT IS 5% LESS SOURCE FOR DATA: buuteeq 1800 OPERATION MANUAL( AUTOMATED BLOOD COUNTS AND [...] 2-19 YEARS EXCLUSIVE. Lym% 17.3 % 10.0-58.5 [facility] ([facility] NORMAL [...] HCT IS 5% LESS SOURCE FOR DATA: buuteeq 1800 OPERATION MANUAL( AUTOMATED BLOOD COUNTS AND [...] HCT IS 5% LESS SOURCE FOR DATA: buuteeq 1800 OPERATION MANUAL( AUTOMATED BLOOD COUNTS AND [...] 2-19 YEARS EXCLUSIVE. MXD% 10.5 % 0.1-24.0 [facility] ([facility] NORMAL [...] HCT IS 5% LESS SOURCE FOR DATA: [employer] DYN 1800 OPERATION MANUAL( AUTOMATED BLOOD COUNTS [...] 2-19 YEARS EXCLUSIVE. Lym# 1.6 10E3/uL 0.6-4.1 [facility] ([facility] NORMAL RANGES Age WBC RBC [...] HCT IS 5% LESS SOURCE FOR DATA: buuteeq 1800 OPERATION MANUAL( AUTOMATED BLOOD COUNTS AND [...] 2-19 YEARS EXCLUSIVE. Neut# 6.8 % 2.0-7.8 [facility] ([facility] NORMAL [...] HCT IS 5% LESS SOURCE FOR DATA: buuteeq 1800 OPERATION MANUAL( AUTOMATED BLOOD COUNTS AND [...] 2-19 YEARS EXCLUSIVE. MXD# 1.0 10E3/uL 0.0-1.8 [facility] ([facility] NORMAL RANGES Age WBC RBC [...] HCT IS 5% LESS SOURCE FOR DATA: buuteeq 1800 OPERATION MANUAL( AUTOMATED BLOOD COUNTS AND [...] 2-19 YEARS EXCLUSIVE. MPV 11.2 fL 9.0-13.0 [facility] ([facility] NORMAL [...] HCT IS 5% LESS SOURCE FOR DATA: buuteeq 1800 OPERATION MANUAL( AUTOMATED BLOOD COUNTS AND [...] 2-19 YEARS EXCLUSIVE. ID Date Data Source [id number] 11/30/2020 01:40:00 PM EST MED[facility] ([facility] Name Value Range Interpretation Code Description Data Trina rce(s) Supporting Document(s) Color Urine Laboratory test result M EDENT ([facility] Appearance of Urine Laboratory test result [facility] ([facility] Specific [place] Laboratory test result 1.00-1.03 [facility] ([facility] PH Urine Laboratory test result 5.0-8.0 ME DENT ([facility] Glucose Urine Laboratory test result [facility] ([facility] Bilirubin.total [Presence] in Urine by Test strip Laboratory test res ult [facility] ([facility] Protein Urine Laboratory test result [facility] ([facility] Ketones Laboratory test result [facility] ([facility] Blood Urine Laboratory test result M EDJENNIE ([facility] Leukocytes Laboratory test result ME DENT ([facility] Nitrite Laboratory test result [facility] ([facility] Urobilinogen Laboratory test result 0.2-1.0 [facility] ([facility] Comment 1 Laboratory test result ME DENT ([facility] ID Date Data Source [id number] 11/30/2020 01:40:00 PM EST MED[facility] ([facility] Name Value Range Interpretation Code Description Data Trina rce(s) Supporting Document(s) Chol 141 mg/dL 0-200 [facility] ([facility] NORMAL RANGES Age WBC [...] HCT IS 5% LESS SOURCE FOR DATA: buuteeq 1800 OPERATION MANUAL( AUTOMATED BLOOD COUNTS AND [...] 2-19 YEARS EXCLUSIVE. Trig 152 mg/dL 35-200 [facility] ([facility] NORMAL RANGES Age [...] HCT IS 5% LESS SOURCE FOR DATA: buuteeq 1800 OPERATION MANUAL( AUTOMATED BLOOD COUNTS AND [...] in Serum or Plasma 49 mg/dL 35-55 [facility] ([facility] NORMAL RANGES [...] HCT IS 5% LESS SOURCE FOR DATA: buuteeq 1800 OPERATION MANUAL( AUTOMATED BLOOD COUNTS AND [...] HCT IS 5% LESS SOURCE FOR DATA: buuteeq 1800 OPERATION MANUAL( AUTOMATED BLOOD COUNTS AND [...] 2-19 YEARS EXCLUSIVE. Cho/HDL Ratio 2.9 CALC ALAN ([facility] NORMAL RANGES Age WBC RBC HGB [...] HCT IS 5% LESS SOURCE FOR DATA: buuteeq 1800 OPERATION MANUAL( AUTOMATED BLOOD COUNTS AND [...] 2-19 YEARS EXCLUSIVE. ID Date Data Source [id number] 11/30/2020 01:40:00 PM EST MEDENT ([facility] Name Value Range Interpretation Code Description Data Trina rce(s) Supporting Document(s) Glu 118 mg/dL 70-110 Above high normal [facility] ([facility] NORMAL RANGES Age WBC [...] HCT IS 5% LESS SOURCE FOR DATA: buuteeq 1800 OPERATION MANUAL( AUTOMATED BLOOD COUNTS AND [...] 29 mg/dL 8-23 Above high normal [facility] ([facility] NORMAL RANGES Age [...] HCT IS 5% LESS SOURCE FOR DATA: buuteeq 1800 OPERATION MANUAL( AUTOMATED BLOOD COUNTS AND [...] HCT IS 5% LESS SOURCE FOR DATA: [employer] DYN 1800 OPERATION MANUAL( AUTOMATED BLOOD COUNTS [...] 2-19 YEARS EXCLUSIVE. BUN/Creatinine Ratio 44.2 CALC MEDENT ([facility] NORMAL RANGES Age WBC [...] HCT IS 5% LESS SOURCE FOR DATA: buuteeq 1800 OPERATION MANUAL( AUTOMATED BLOOD COUNTS AND [...] 2-19 YEARS EXCLUSIVE. Na 140 mmol/L 136-145 [facility] ([facility] NORMAL [...] HCT IS 5% LESS SOURCE FOR DATA: buuteeq 1800 OPERATION MANUAL( AUTOMATED BLOOD COUNTS AND [...] 2-19 YEARS EXCLUSIVE. CL 99.1 mmol/L 98.0-107.0 [facility] ([facility] NORMAL RANGES Age WBC [...] HCT IS 5% LESS SOURCE FOR DATA: buuteeq 1800 OPERATION MANUAL( AUTOMATED BLOOD COUNTS AND [...] 2-19 YEARS EXCLUSIVE. K 4.3 mmol/L 3.5-5.1 [facility] ([facility] NORMAL RANGES Age [...] HCT IS 5% LESS SOURCE FOR DATA: buuteeq 1800 OPERATION MANUAL( AUTOMATED BLOOD COUNTS AND [...] Co2 31.4 mmol/L 22.0-29.0 Above high normal [facility] ([facility] NORMAL RANGES Age WBC [...] HCT IS 5% LESS SOURCE FOR DATA: buuteeq 1800 OPERATION MANUAL( AUTOMATED BLOOD COUNTS AND [...] 2-19 YEARS EXCLUSIVE. CA 9.0 mg/dL 8.6-10.2 [facility] ([facility] NORMAL [...] HCT IS 5% LESS SOURCE FOR DATA: buuteeq 1800 OPERATION MANUAL( AUTOMATED BLOOD COUNTS AND [...] HCT IS 5% LESS SOURCE FOR DATA: buuteeq 1800 OPERATION MANUAL( AUTOMATED BLOOD COUNTS AND [...] 2-19 YEARS EXCLUSIVE. A/G Ratio 1.6 CALC ALAN ([facility] NORMAL [...] HCT IS 5% LESS SOURCE FOR DATA: buuteeq 1800 OPERATION MANUAL( AUTOMATED BLOOD COUNTS AND [...] 2-19 YEARS EXCLUSIVE. Alb 4.0 g/dL 3.5-5.2 [facility] ([facility] NORMAL [...] HCT IS 5% LESS SOURCE FOR DATA: [employer] DYN 1800 OPERATION MANUAL( AUTOMATED BLOOD COUNTS [...] HCT IS 5% LESS SOURCE FOR DATA: buuteeq 1800 OPERATION MANUAL( AUTOMATED BLOOD COUNTS AND [...] 2-19 YEARS EXCLUSIVE. Alp 89.8 U/L 40-129 ALAN ([facility] NORMAL RANGES Age [...] HCT IS 5% LESS SOURCE FOR DATA: buuteeq 1800 OPERATION MANUAL( AUTOMATED BLOOD COUNTS AND [...] YEARS EXCLUSIVE. Alt (SGPT) 7 U/L 0-41 [facility] ([facility] NORMAL [...] HCT IS 5% LESS SOURCE FOR DATA: buuteeq 1800 OPERATION MANUAL( AUTOMATED BLOOD COUNTS AND [...] YEARS EXCLUSIVE. Ast (Sgot) 11 U/L 0-40 [facility] ([facility] NORMAL [...] HCT IS 5% LESS SOURCE FOR DATA: buuteeq 1800 OPERATION MANUAL( AUTOMATED BLOOD COUNTS AND [...] 2-19 YEARS EXCLUSIVE. Tbili 0.23 mg/dL 0.0-1.2 [facility] ([facility] NORMAL RANGES Age WBC RBC [...] HCT IS 5% LESS SOURCE FOR DATA: buuteeq 1800 OPERATION MANUAL( AUTOMATED BLOOD COUNTS AND [...] YEARS EXCLUSIVE. Osmolality-Calculated 285.4 CALC [facility] ([facility] [...] HCT IS 5% LESS SOURCE FOR DATA: buuteeq 1800 OPERATION MANUAL( AUTOMATED BLOOD COUNTS AND [...] 2-19 YEARS EXCLUSIVE. Anion Gap 13 mmol/L [facility] ([facility] [...] HCT IS 5% LESS SOURCE FOR DATA: buuteeq 1800 OPERATION MANUAL( AUTOMATED BLOOD COUNTS AND [...] INDIVIDUALA AGED 2-19 YEARS EXCLUSIVE. eGFR Non-Afr. German 97 # [facility] ([facility] CKD-EPI eGFR 112 # [facility] ( [facility] CKD-EPI ID Date Data Source [id number] 11/30/2020 01:40:00 PM EST MED[facility] ([facility] Name Value Range Interpretation Code Description Data Trina rce(s) Supporting Document(s) Creatine kinase [Enzymatic activity/volume] in Serum or Plasma 57 U /L 39-308 [facility] ([facility] NORMAL RANGES Age WBC RBC HGB HCT MCV PLT Adult M 4.1-10.9 4.20-6.30 12.0-18.0 37.0-51.0 80 140-440 Adult F 4.1-10.9 4.04-5.48 12.0-18.0 37.0-51.0 140-440 0 -1 Yr 5.0-20.0 3.9-5.9 15-18 [...] HCT IS 5% LESS SOURCE FOR DATA: [employer] DYN 1800 OPERATION MANUAL( AUTOMATED BLOOD COUNTS [...] 2-19 YEARS EXCLUSIVE. ID Date Data Source [id number] 08/26/2020 03:47:00 PM EDT [facility] ([facility] Name Value Range Interpretation Code Description Data Trina rce(s) Supporting Document(s) Color Urine Laboratory test result M EDJENNIE ([facility] Specific [place] 1.025 1.00-1.03 [facility] ([facility] Appearance of Urine Laboratory test result [facility] ([facility] PH Urine 7.0 5.0-8.0 [facility] ([facility] Glucose Urine Laboratory test result [facility] ([facility] Bilirubin.total [Presence] in Urine by Test strip Laboratory test res ult [facility] ([facility] Ketones Laboratory test result [facility] ([facility] Blood Urine Laboratory test result M EDENT ([facility] Nitrite Laboratory test result [facility] ([facility] Urobilinogen 0.2 EU/dl 0.2-1.0 [facility] ([facility] Protein Urine Laboratory test result [facility] ([facility] Leukocytes Laboratory test result ME DENT ([facility] ID Date Data Source [id number] 08/26/2020 03:47:00 PM EDT MED[facility] ([facility] Name Value Range Interpretation Code Description Data Trina rce(s) Supporting Document(s) Hemoglobin A1c/Hemoglobin.total in Blood 7.2 % 4.50-6.20 Above high normal [facility] ([facility] ID Date Data Source [id number] 08/26/2020 01:16:00 PM EDT [facility] ([facility] Name Value Range Interpretation Code Description Data Trina rce(s) Supporting Document(s) Chol 141 mg/dL 0-200 [facility] ([facility] NORMAL RANGES Age WBC [...] HCT IS 5% LESS SOURCE FOR DATA: buuteeq 1800 OPERATION MANUAL( AUTOMATED BLOOD COUNTS AND [...] 2-19 YEARS EXCLUSIVE. Trig 163 mg/dL 35-200 [facility] ([facility] NORMAL [...] HCT IS 5% LESS SOURCE FOR DATA: buuteeq 1800 OPERATION MANUAL( AUTOMATED BLOOD COUNTS AND [...] in Serum or Plasma 44 mg/dL 35-55 [facility] ([facility] NORMAL RANGES [...] HCT IS 5% LESS SOURCE FOR DATA: [employer] DYN 1800 OPERATION MANUAL( AUTOMATED BLOOD COUNTS [...] 2-19 YEARS EXCLUSIVE. Cho/HDL Ratio 3.2 CALC [facility] ([facility] NORMAL RANGES Age WBC RBC HGB [...] HCT IS 5% LESS SOURCE FOR DATA: buuteeq 1800 OPERATION MANUAL( AUTOMATED BLOOD COUNTS AND [...] LDL_C 65 Calc 75-129 Below low normal [facility] ( [facility] NORMAL RANGES Age WBC [...] HCT IS 5% LESS SOURCE FOR DATA: buuteeq 1800 OPERATION MANUAL( AUTOMATED BLOOD COUNTS AND [...] 2-19 YEARS EXCLUSIVE. ID Date Data Source [id number] 08/26/2020 01:16:00 PM EDT MED[facility] ([facility] [...] HCT IS 5% LESS SOURCE FOR DATA: buuteeq 1800 OPERATION MANUAL( AUTOMATED BLOOD COUNTS AND [...] Glu 144 mg/dL 70-110 Above high normal [facility] (Family [...] HCT IS 5% LESS SOURCE FOR DATA: buuteeq 1800 OPERATION MANUAL( AUTOMATED BLOOD COUNTS AND [...] 2-19 YEARS EXCLUSIVE. BUN/Creatinine Ratio 36.1 CALC [facility] ([facility] NORMAL RANGES Age WBC RBC [...] HCT IS 5% LESS SOURCE FOR DATA: buuteeq 1800 OPERATION MANUAL( AUTOMATED BLOOD COUNTS AND [...] 2-19 YEARS EXCLUSIVE. Creat 0.7 mg/dL 0.7-1.2 [facility] ([facility] NORMAL [...] HCT IS 5% LESS SOURCE FOR DATA: buuteeq 1800 OPERATION MANUAL( AUTOMATED BLOOD COUNTS AND [...] 2-19 YEARS EXCLUSIVE. Na 141 mmol/L 136-145 [facility] ([facility] NORMAL [...] HCT IS 5% LESS SOURCE FOR DATA: buuteeq 1800 OPERATION MANUAL( AUTOMATED BLOOD COUNTS AND [...] 2-19 YEARS EXCLUSIVE. CL 99.1 mmol/L 98.0-107.0 [facility] ([facility] NORMAL RANGES Age [...] 2-19 YEARS EXCLUSIVE. K 4.4 mmol/L 3.5-5.1 [facility] ([facility] NORMAL [...] HCT IS 5% LESS SOURCE FOR DATA: buuteeq 1800 OPERATION MANUAL( AUTOMATED BLOOD COUNTS AND [...] 2-19 YEARS EXCLUSIVE. CA 9.1 mg/dL 8.6-10.2 [facility] ([facility] NORMAL [...] HCT IS 5% LESS SOURCE FOR DATA: buuteeq 1800 OPERATION MANUAL( AUTOMATED BLOOD COUNTS AND [...] HCT IS 5% LESS SOURCE FOR DATA: [employer] DYN 1800 OPERATION MANUAL( AUTOMATED BLOOD COUNTS [...] 2-19 YEARS EXCLUSIVE. Alb 3.9 g/dL 3.5-5.2 [facility] ([facility] NORMAL [...] HCT IS 5% LESS SOURCE FOR DATA: buuteeq 1800 OPERATION MANUAL( AUTOMATED BLOOD COUNTS AND [...] HCT IS 5% LESS SOURCE FOR DATA: buuteeq 1800 OPERATION MANUAL( AUTOMATED BLOOD COUNTS AND [...] HCT IS 5% LESS SOURCE FOR DATA: [employer] DYN 1800 OPERATION MANUAL( AUTOMATED BLOOD COUNTS [...] HCT IS 5% LESS SOURCE FOR DATA: buuteeq 1800 OPERATION MANUAL( AUTOMATED BLOOD COUNTS AND [...] 2-19 YEARS EXCLUSIVE. Alp 80.8 U/L 40-129 [facility] ([facility] NORMAL RANGES Age WBC [...] HCT IS 5% LESS SOURCE FOR DATA: buuteeq 1800 OPERATION MANUAL( AUTOMATED BLOOD COUNTS AND [...] YEARS EXCLUSIVE. Alt (SGPT) 9 U/L 0-41 [facility] ([facility] NORMAL RANGES Age [...] HCT IS 5% LESS SOURCE FOR DATA: buuteeq 1800 OPERATION MANUAL( AUTOMATED BLOOD COUNTS AND [...] 2-19 YEARS EXCLUSIVE. Tbili 0.22 mg/dL 0.0-1.2 [facility] ([facility] [...] HCT IS 5% LESS SOURCE FOR DATA: buuteeq 1800 OPERATION MANUAL( AUTOMATED BLOOD COUNTS AND [...] HCT IS 5% LESS SOURCE FOR DATA: buuteeq 1800 OPERATION MANUAL( AUTOMATED BLOOD COUNTS AND [...] YEARS EXCLUSIVE. Ast (Sgot) 11 U/L 0-40 [facility] ([facility] NORMAL RANGES Age [...] HCT IS 5% LESS SOURCE FOR DATA: buuteeq 1800 OPERATION MANUAL( AUTOMATED BLOOD COUNTS AND [...] HCT IS 5% LESS SOURCE FOR DATA: buuteeq 1800 OPERATION MANUAL( AUTOMATED BLOOD COUNTS AND [...] AGED 2-19 YEARS EXCLUSIVE. eGFR 106 # MEDJENNIE ( [facility] CKD-EPI eGFR Non-Afr. German 92 # MEDJENNIE ([facility] CKD-EPI ID Date Data Source [id number] 08/26/2020 01:16:00 PM EDT MEDJENNIE ([facility] Name Value Range Interpretation Code Description Data Trina rce(s) Supporting Document(s) Creatine kinase [Enzymatic activity/volume] in Serum or Plasma 70 U /L 39-308 MEDJENNIE ([facility] NORMAL RANGES Age WBC [...] HCT IS 5% LESS SOURCE FOR DATA: buuteeq 1800 OPERATION MANUAL( AUTOMATED BLOOD COUNTS AND [...] 2-19 YEARS EXCLUSIVE. ID Date Data Source [id number] 08/26/2020 01:16:00 PM EDT MEDENT ([facility] Name Value Range Interpretation Code Description Data Trina rce(s) Supporting Document(s) WBC 8.6 10E3/uL 4.1-10.9 [facility] ([facility] NORMAL RANGES Age WBC RBC [...] HCT IS 5% LESS SOURCE FOR DATA: buuteeq 1800 OPERATION MANUAL( AUTOMATED BLOOD COUNTS AND [...] 2-19 YEARS EXCLUSIVE. RBC 4.49 10E6/uL 4.20-6.30 ALAN ([facility] NORMAL RANGES Age WBC [...] HCT IS 5% LESS SOURCE FOR DATA: buuteeq 1800 OPERATION MANUAL( AUTOMATED BLOOD COUNTS AND [...] 2-19 YEARS EXCLUSIVE. HCT 38.7 % 37.0-51.0 [facility] ([facility] NORMAL [...] HCT IS 5% LESS SOURCE FOR DATA: buuteeq 1800 OPERATION MANUAL( AUTOMATED BLOOD COUNTS AND [...] HGB 11.7 g/dL 12.0-18.0 Below low normal [facility] ( [...] HCT IS 5% LESS SOURCE FOR DATA: buuteeq 1800 OPERATION MANUAL( AUTOMATED BLOOD COUNTS AND [...] 2-19 YEARS EXCLUSIVE. MCV 86.2 fL 80.0-97.0 [facility] ([facility] NORMAL RANGES Age [...] HCT IS 5% LESS SOURCE FOR DATA: buuteeq 1800 OPERATION MANUAL( AUTOMATED BLOOD COUNTS AND [...] 2-19 YEARS EXCLUSIVE. MCH 26.1 pg 26.0-32.0 [facility] ([facility] NORMAL [...] HCT IS 5% LESS SOURCE FOR DATA: buuteeq 1800 OPERATION MANUAL( AUTOMATED BLOOD COUNTS AND [...] 2-19 YEARS EXCLUSIVE. PLT 303 10E3/uL 140-440 [facility] ([facility] NORMAL RANGES Age WBC RBC [...] HCT IS 5% LESS SOURCE FOR DATA: buuteeq 1800 OPERATION MANUAL( AUTOMATED BLOOD COUNTS AND [...] MCHC 30.2 g/dL 31.0-36.0 Below low normal [facility] ( [facility] NORMAL [...] HCT IS 5% LESS SOURCE FOR DATA: [employer] DYN 1800 OPERATION MANUAL( AUTOMATED BLOOD COUNTS [...] HCT IS 5% LESS SOURCE FOR DATA: buuteeq 1800 OPERATION MANUAL( AUTOMATED BLOOD COUNTS AND [...] 2-19 YEARS EXCLUSIVE. Lym% 17.2 % 10.0-58.5 [facility] ([facility] [...] HCT IS 5% LESS SOURCE FOR DATA: buuteeq 1800 OPERATION MANUAL( AUTOMATED BLOOD COUNTS AND [...] 2-19 YEARS EXCLUSIVE. Neut% 71.8 % 37.0-92.0 [facility] ([facility] NORMAL [...] HCT IS 5% LESS SOURCE FOR DATA: [employer] DYN 1800 OPERATION MANUAL( AUTOMATED BLOOD COUNTS [...] HCT IS 5% LESS SOURCE FOR DATA: buuteeq 1800 OPERATION MANUAL( AUTOMATED BLOOD COUNTS AND [...] 2-19 YEARS EXCLUSIVE. Lym# 1.5 10E3/uL 0.6-4.1 [facility] ([facility] NORMAL RANGES Age WBC RBC [...] HCT IS 5% LESS SOURCE FOR DATA: [employer] DYN 1800 OPERATION MANUAL( AUTOMATED BLOOD COUNTS [...] 2-19 YEARS EXCLUSIVE. Neut# 6.2 % 2.0-7.8 [facility] ([facility] NORMAL [...] HCT IS 5% LESS SOURCE FOR DATA: buuteeq 1800 OPERATION MANUAL( AUTOMATED BLOOD COUNTS AND [...] 2-19 YEARS EXCLUSIVE. MXD# 0.9 10E3/uL 0.0-1.8 [facility] ([facility] NORMAL RANGES Age WBC RBC [...] HCT IS 5% LESS SOURCE FOR DATA: buuteeq 1800 OPERATION MANUAL( AUTOMATED BLOOD COUNTS AND [...] 2-19 YEARS EXCLUSIVE. MPV 10.6 fL 9.0-13.0 ALAN ([facility] [...] HCT IS 5% LESS SOURCE FOR DATA: buuteeq 1800 OPERATION MANUAL( AUTOMATED BLOOD COUNTS AND [...] ADOLESCENTS REPRESENTS INDIVIDUALA AGED 2-19 YEARS EXCLUSIVE. Procedure Social History Code Duration Value Status Description Data Source(s ) Smoking 09/05/2021 12:00:00 AM EDT Patient is a former smoker completed Patient is a former smoker [facility] ([facility]) Smoking 07/21/2021 12:00:00 AM EDT Patient is a former smoker completed Patient is a former smoker [facility] ([facility] Smoking 07/01/2021 12:00:00 AM EDT Quit completed Quit [facility] ([facility] Smoking 05/05/2021 01:11:15 PM EDT Ex-smoker (finding) [facility] Ex-smoker (finding) PAUL (Bacilio Augustine MD [facility]) Smoking 04/13/2021 12:00:00 AM EDT - 11/12/2013 12:00:00 AM EST Patient is a former smoker completed Patient is a former smoker [facility] ([facility] Alcohol intake 09/11/2020 12:00:00 AM EDT No completed [facility] Smoking 09/11/2020 12:00:00 AM EDT Former smoker completed Former smoker [facility] Vital Signs ID Date Data Source UNK Name Value Range Interpretation Code Description Data Source(s) Body temperature 97.7 [degF] 97.7 [degF] MED[facility] ([facility] Body weight 205.00 [lb_av] 205.00 [lb_av] MEDEN T ([facility] [place] body weight 148 [lb_av] 148 [lb_av] MEDEN T ([facility] Body mass index (BMI) [Ratio] 32.1 kg/m2 32.1 k g/m2 MEDENT ([facility] Heart rate 82 /min 82 /min MEDENT ([facility] Respiratory rate 20 /min 20 /min MEDENT ( [facility] Body height 67 [in_i] 67 [in_i] MEDENT ([facility] 5'7" Oxygen saturation in Arterial blood by Pulse oximetry 92 % 92 % MEDENT ([facility] (On O2 @ 3 LPM NC) Systolic blood pressure 116 mm[Hg] 116 mm[Hg] M EDENT ([facility] Diastolic blood pressure 78 mm[Hg] 78 mm[Hg] MEDENT ([facility] Systolic blood pressure 139 mm[Hg] 139 mm[Hg] M EDENT ([facility]) Diastolic blood pressure 89 mm[Hg] 89 mm[Hg] MEDENT ([facility]) Heart rate 79 /min 79 /min MEDENT ([facility]) Body temperature 98.3 [degF] 98.3 [degF] MEDENT ([facility]) Respiratory rate 16 /min 16 /min MEDENT ( [facility]) Oxygen saturation in Arterial blood by Pulse oximetry 96 % 96 % MEDENT ([facility]) on 3L O2 Systolic blood pressure 112 mm[Hg] 112 mm[Hg] M EDENT ([facility]) Diastolic blood pressure 70 mm[Hg] 70 mm[Hg] MEDENT ([facility]) Body temperature 96.5 [degF] 96.5 [degF] MEDENT ([facility]) Heart rate 80 /min 80 /min MEDENT ([facility]) Systolic blood pressure 130 mm[Hg] 130 mm[Hg] M EDENT ([facility]) Diastolic blood pressure 62 mm[Hg] 62 mm[Hg] MEDENT ([facility]) Oxygen saturation in Arterial blood by Pulse oximetry 85 % 85 % MEDENT ([facility]) with potable O2 on Body temperature 98.6 [degF] 98.6 [degF] MEDENT ([facility]) Respiratory rate 18 /min 18 /min MEDENT ( [facility]) Body mass index (BMI) [Ratio] 29.6 kg/m2 29.6 k g/m2 MEDENT ([facility]) Body weight 206.00 [lb_av] 206.00 [lb_av] MEDEN T ([facility]) Body weight 93.442 kg 93.442 kg MEDENT ([facility]) Body height 70 [in_i] 70 [in_i] MEDENT ([facility]) 5'10" Body surface area Derived from formula 2.11 m2 2.11 m2 MEDENT ([facility]) Body mass index (BMI) [Ratio] 31.3 kg/m2 31.3 k g/m2 MEDENT ([facility] Body height 68 [in_i] 68 [in_i] MEDENT ([facility]) 5'8" Body temperature 96.9 [degF] 96.9 [degF] MEDENT ([facility] ) Body weight 206.00 [lb_av] 206.00 [lb_av] MEDEN T ([facility] ) Body temperature 97.6 [degF] 97.6 [degF] MEDENT ([facility] Diastolic blood pressure 60 mm[Hg] 60 mm[Hg] MED[facility] ([facility] Heart rate 88 /min 88 /min MED[facility] ([facility] Respiratory rate 20 /min 20 /min MEDENT ( [facility] Body height 67 [in_i] 67 [in_i] MEDENT ([facility] 5'7" Body weight 206.00 [lb_av] 206.00 [lb_av] MEDEN T ([facility] [place] body weight 148 [lb_av] 148 [lb_av] MEDEN T ([facility] Body mass index (BMI) [Ratio] 32.3 kg/m2 32.3 k g/m2 MEDENT ([facility] Systolic blood pressure 110 mm[Hg] 110 mm[Hg] M EDENT ([facility] Oxygen saturation in Arterial blood by Pulse oximetry 94 % 94 % MEDENT ([facility] (On O2 @ 3 LPM NC) Systolic blood pressure 118 mm[Hg] 118 mm[Hg] M EDENT ([facility] Diastolic blood pressure 80 mm[Hg] 80 mm[Hg] MED[facility] ([facility] Body temperature 97.3 [degF] 97.3 [degF] MEDENT ([facility] Heart rate 87 /min 87 /min MED[facility] ([facility] Respiratory rate 20 /min 20 /min MEDENT ( [facility] Oxygen saturation in Arterial blood by Pulse oximetry 94 % 94 % MEDENT ([facility] (On O2 @ 3LPM NC) Systolic blood pressure 100 mm[Hg] 100 mm[Hg] M EDENT ([facility], [facility]) Diastolic blood pressure 60 mm[Hg] 60 mm[Hg] MEDENT ([facility], [facility]) Heart rate 88 /min 88 /min MEDENT ([facility], [facility]) Respiratory rate 17 /min 17 /min MEDENT ( [facility], [facility]) Oxygen saturation in Arterial blood by Pulse oximetry 94 % 94 % MEDENT ([facility], [facility]) Body temperature 97.6 [degF] 97.6 [degF] MEDENT ([facility], [facility]) Body weight 206.00 [lb_av] 206.00 [lb_av] MEDEN T ([facility], [facility]) Body height 71 [in_i] 71 [in_i] MEDENT ([facility], [facility]) 5'11" Body mass index (BMI) [Ratio] 28.7 kg/m2 28.7 k g/m2 MEDENT ([facility], [facility]) Body height 67 [in_i] 67 [in_i] [facility] ([facility] 5'7" Body weight 206.00 [lb_av] 206.00 [lb_av] MEDEN T ([facility] Body mass index (BMI) [Ratio] 32.3 kg/m2 32.3 k g/m2 MED[facility] ([facility] [place] body weight 148 [lb_av] 148 [lb_av] MEDEN T ([facility] Systolic blood pressure 118 mm[Hg] 118 mm[Hg] M EDENT ([facility] Diastolic blood pressure 70 mm[Hg] 70 mm[Hg] [facility] ([facility] Body temperature 98.0 [degF] 98.0 [degF] [facility] ([facility] Heart rate 98 /min 98 /min [facility] ([facility] Respiratory rate 20 /min 20 /min MED[facility] ( [facility] Oxygen saturation in Arterial blood by Pulse oximetry 95 % 95 % [facility] ([facility] (On O2 @ 3 LPM NC) Heart rate 70 /min 70 /min MED[facility] ([facility] Systolic blood pressure 130 mm[Hg] 130 mm[Hg] M EDENT ([facility] Diastolic blood pressure 70 mm[Hg] 70 mm[Hg] MED[facility] ([facility] Body temperature 98.3 [degF] 98.3 [degF] [facility] ([facility] Respiratory rate 18 /min 18 /min MED[facility] ( [facility] Body height 67 [in_i] 67 [in_i] MEDENT ([facility] 5'7" Body weight 203.00 [lb_av] 203.00 [lb_av] MEDEN T ([facility] home scales [place] body weight 148 [lb_av] 148 [lb_av] MEDEN T ([facility] Body mass index (BMI) [Ratio] 31.8 kg/m2 31.8 k g/m2 MEDENT ([facility] Oxygen saturation in Arterial blood by Pulse oximetry 94 % 94 % [facility] ([facility] Systolic blood pressure 120 mm[Hg] 120 mm[Hg] M EDENT ([facility]) Diastolic blood pressure 70 mm[Hg] 70 mm[Hg] MEDENT ([facility]) Heart rate 100 /min 100 /min [facility] ([facility]) Oxygen saturation in Arterial blood by Pulse oximetry 923 % 923 % [facility] ([facility]) Body height 68 [in_i] 68 [in_i] [facility] ([facility]) 5'8" Body weight 204.00 [lb_av] 204.00 [lb_av] MEDEN T ([facility]) Body mass index (BMI) [Ratio] 31.0 kg/m2 31.0 k g/m2 [facility] ([facility]) [place] body weight 154 [lb_av] 154 [lb_av] MEDEN T ([facility]) Body weight 92.534 kg 92.534 kg [facility] ([facility]) Body surface area Derived from formula 2.06 m2 2.06 m2 [facility] ([facility]) Systolic blood pressure 128 mm[Hg] 128 mm[Hg] [facility] Body temperature 97.7 [degF] 97.7 [degF] [facility] Diastolic blood pressure 86 mm[Hg] 86 mm[Hg] MEDENT ([facility] Heart rate 84 /min 84 /min [facility] ([facility] Respiratory rate 18 /min 18 /min [facility] ( [facility] Body height 67 [in_i] 67 [in_i] MEDENT ([facility] 5'7" Body weight 203.00 [lb_av] 203.00 [lb_av] MEDEN T ([facility] [place] body weight 148 [lb_av] 148 [lb_av] MEDEN T ([facility] Body mass index (BMI) [Ratio] 31.8 kg/m2 31.8 k g/m2 [facility] ([facility] Oxygen saturation in Arterial blood by Pulse oximetry 96 % 96 % [facility] ([facility] (On O2 @ 3 LPM NC) Heart rate 100 /min 100 /min [facility] ([facility] Diastolic blood pressure 70 mm[Hg] 70 mm[Hg] [facility] ([facility] Body temperature 97.8 [degF] 97.8 [degF] [facility] ([facility] Systolic blood pressure 130 mm[Hg] 130 mm[Hg] M EDENT ([facility] Respiratory rate 18 /min 18 /min [facility] ( [facility] Body height 67 [in_i] 67 [in_i] MEDENT ([facility] 5'7" [place] body weight 148 [lb_av] 148 [lb_av] MEDEN T ([facility] Oxygen saturation in Arterial blood by Pulse oximetry 93 % 93 % [facility] ([facility] (On O2 @ 3 LPM NC) Systolic blood pressure 108 mm[Hg] 108 mm[Hg] M EDENT ([facility] Diastolic blood pressure 64 mm[Hg] 64 mm[Hg] [facility] ([facility] Body temperature 97.1 [degF] 97.1 [degF] [facility] ([facility] Heart rate 94 /min 94 /min [facility] ([facility] Respiratory rate 22 /min 22 /min [facility] ( [facility] Body height 67 [in_i] 67 [in_i] MEDENT ([facility] 5'7" Body weight 207.00 [lb_av] 207.00 [lb_av] MEDEN T ([facility] [place] body weight 148 [lb_av] 148 [lb_av] MEDEN T ([facility] Body mass index (BMI) [Ratio] 32.4 kg/m2 32.4 k g/m2 [facility] ([facility] Oxygen saturation in Arterial blood by Pulse oximetry 91 % 91 % [facility] ([facility] with O2 @3L via nasal cannula Systolic blood pressure 130 mm[Hg] 130 mm[Hg] M [facility] ([facility], ) Diastolic blood pressure 78 mm[Hg] 78 mm[Hg] [facility] ([facility]) Heart rate 101 /min 101 /min [facility] ([facility]) Oxygen saturation in Arterial blood by Pulse oximetry 883 % 883 % [facility] ([facility]) Body height 68 [in_i] 68 [in_i] [facility] ([facility]) 5'8" Body weight 207.00 [lb_av] 207.00 [lb_av] [facility] Body mass index (BMI) [Ratio] 31.5 kg/m2 31.5 k g/m2 [facility] ([facility]) [place] body weight 154 [lb_av] 154 [lb_av] [facility] ([facility]) Body weight 93.895 kg 93.895 kg [facility] ([facility]) Body surface area Derived from formula 2.07 m2 2.07 m2 [facility] ([facility]) Heart rate 84 /min 84 /min [facility] Respiratory rate 16 /min 16 /min [facility] Body height 177.8 cm 177.8 cm [facility] Body weight 93.895 kg 93.895 kg [facility] Body mass index (BMI) [Ratio] 29.70 kg/m2 29.70 kg/m2 [facility] Oxygen saturation in Arterial blood by Pulse oximetry 93 % 93 % [facility] Diastolic blood pressure 88 mm[Hg] 88 mm[Hg] [facility] ([facility]) Body weight 93.895 kg 93.895 kg [facility] ([facility] Body mass index (BMI) [Ratio] 29.7 kg/m2 29.7 k g/m2 [facility] ([facility]) Body weight 207.00 [lb_av] 207.00 [lb_av] MEDEN T ([facility]) Systolic blood pressure 150 mm[Hg] 150 mm[Hg] M EDENT ([facility]) Body height 70 [in_i] 70 [in_i] [facility] ([facility] 5'10" Systolic blood pressure 150 mm[Hg] 150 mm[Hg] M EDENT ([facility]) Diastolic blood pressure 88 mm[Hg] 88 mm[Hg] [facility] ([facility]) Systolic blood pressure 136 mm[Hg] 136 mm[Hg] M EDENT ([facility] Diastolic blood pressure 78 mm[Hg] 78 mm[Hg] [facility] ([facility] Body temperature 98.2 [degF] 98.2 [degF] [facility] ([facility] Heart rate 88 /min 88 /min [facility] ([facility] Respiratory rate 18 /min 18 /min [facility] ( [facility] Body height 67 [in_i] 67 [in_i] MEDENT ([facility] 5'7" Body weight 206.00 [lb_av] 206.00 [lb_av] MEDEN T ([facility] [place] body weight 148 [lb_av] 148 [lb_av] MEDEN T ([facility] Body mass index (BMI) [Ratio] 32.3 kg/m2 32.3 k g/m2 [facility] ([facility] Oxygen saturation in Arterial blood by Pulse oximetry 95 % 95 % [facility] ([facility]
[2021-09-22] MEDS ORDERED: FUROSEMIDE 100MG/10ML VIAL (J1940) IV ONE (17:25)
[2021-09-22 17:50] LABS: BASO % 0.3 % (0.0-1.0); EOS # 0.3 10^3/uL (0.0-0.5); EOS % 3.6 % (0.0-3.0); HEMATOCRIT 41.9 % (42.0-52.0); HEMOGLOBIN 11.6 g/dl (13.5-17.5); LYMPH # 1.2 10^3/uL (1.5-5.0); LYMPH % 14.9 % (24.0-44.0); MEAN CORPUSCULAR HEMOGLOBIN 26.4 pg (27.0-33.0); MEAN CORPUSCULAR HGB CONC 27.7 g/dl (32.0-36.5); MEAN CORPUSCULAR VOLUME 95.2 fl (80.0-96.0); MONO % 12.7 % (2.0-8.0); NEUTROPHILS # 5.4 10^3/uL (1.5-8.5); NEUTROPHILS % 68.2 % (36.0-66.0); PLATELET COUNT, AUTOMATED 237 10^3/uL (150-450); WHITE BLOOD COUNT 7.9 10^3/uL (4.0-10.0)
--- NOTE | 2021-09-22 17:54 | REP ---
INDICATION: DYSPNEA/COUGH. COMPARISON: 12/13/2017 TECHNIQUE: An AP upright portable chest film was obtained. FINDINGS: Cardiac lead wires are present. Crowding of the bronchovascular markings in the right lung base medially are again noted. Consider atelectasis and or pneumonia. Patchy area of parenchymal opacification is present left lung base with another area suggestive of a cavitary lesion in the left lung is noted. This may be a summation of shadows but follow-up is recommended. No effusion is noted. The heart and great vessels are within normal limits for the patient's age. IMPRESSION: Areas of increased density at the right base medially and also at the left base. Consider atelectasis and or pneumonia. 2. Possible small cavitary lesion left chest. Follow-up is recommended and if positive CT of the chest should follow. <Electronically signed by Yomi Singh > 09/22/21 [id number]
[2021-09-22 17:59] LABS: INR 1.17; PROTHROMBIN TIME 15.3 SECONDS (12.7-14.5)
[2021-09-22 18:26] LABS: ALBUMIN 2.9 GM/DL (3.2-5.2); ALT/SGPT 15 U/L (12-78); BILIRUBIN,DIRECT < 0.1 MG/DL (0.0-0.2); BILIRUBIN,TOTAL 0.2 MG/DL (0.2-1.0); BLOOD UREA NITROGEN 21 MG/DL (7-18); CALCIUM LEVEL 8.7 MG/DL (8.8-10.2); CARBON DIOXIDE LEVEL 38 MEQ/L (21-32); CHLORIDE LEVEL 102 MEQ/L (98-107); CK-MB VALUE MASS 4.3 NG/ML (<3.6); CPK CREATINE PHOSPHOKINASE 92 U/L (39-308); CREATININE FOR GFR 0.58 MG/DL (0.70-1.30); GLOMERULAR FILTRATION RATE > 60.0 (>42); GLUCOSE, FASTING 111 MG/DL (70-100); MB/CK RELATIVE INDEX 4.67 (< OR =4); NT-PRO BNP 46 PG/ML (<450); POTASSIUM SERUM 5.1 MEQ/L (3.5-5.1); SODIUM LEVEL 142 MEQ/L (136-145); TOTAL PROTEIN 6.8 GM/DL (6.4-8.2); TROPONIN I < 0.02 NG/ML (< 0.10)
--- OUTSIDE RECORDS SUMMARY | 2021-09-22 18:30 | CCD | Continuity of Care Document ---
Author Author Lalo DAY D.O. Organization Unknown Address [address] [place] [id number] Phone [phone] Problems Active Problems Provider Date Chronic obstructive [...] smoker quit March 2014 Smoking Status Reviewed: 09/16/21 Patient is a former smoker qu it March 2014 Allergies and adverse reactions Active Allergies Criticality Reaction | Severity Comments Date Aspirin Unable to assess criticality Ulcers 09/22/2010 NSAIDs Unable to assess criticality ulcers 08/29/2012 Inactive Allergies NKDA Unable to assess criticality 02/19/2002 Medications Active Medications SIG Qnty Indications Ordering Provide r Date Ferrous Gluconate 324(38Fe) mg Tab lets 1 [...] Suspension as directed Done [facility]2017 Pantoprazole Sodium 40mg Tablets D R [...] daily (E11.9) 100units E11.9 Hesham Day D.O., [facility] 06/24/2014 Asa 81 Capsules 1 tab daily Unknown Latanoprost 0.005% Solution 1 gtt ou hs Unknown B-100 Complex Tablets 1 PO D aily Unknown Moderna Covid-19 Vaccine 100mcg/0.5ML Suspension pt recieved both Unknown History Medications Doxycycline Hyclate 100mg Capsules 1 cap by mouth twice a day 20caps Hesham Day D.O., [facility] 07/06/2021 - 09/16/2021 Medications Administered in Office Medication SIG Qnty Indications Ordering Provider Date Injection (SC)/(Im) Injection Hesham Day D.O., [facility] 01/30/2020 Injection (SC)/(Im) Injection Chiki Aldana, RPA 05/02/2010 Injection (SC)/(Im) Injection Chiki Aldana, RPA 04/29/2010 Injection (SC)/(Im) Injection Hesham Day D.O., [facility] 08/09/2009 Injection Subcutaneous Or Intramuscular Injection Hesham Day D.O., [facility] 09/02/2008 Injection Subcutaneous Or Intramuscular Injection Hesham Day D.O., [facility] 2007 Injection Subcutaneous Or Intramuscular Injection Hesham Day D.O., [facility] 08/20/2006 Injection (SC)/(Im) Injection Trino Zamora M.D. 09/30/2002 Immunizations CPT Code Status Date Vaccine Lot # 54870 Given 07/21/2021 Influenza Virus Vaccine, Quadrivalent, Slit Virus, Im Use 3Y & Up [id number] 42414 Given 07/31/2019 Influenza Virus Vaccine, Quadrivalent, Slit Virus, Im Use 3Y & Up [id number] 80845 Given 09/06/2018 Influenza Virus Vaccine, Quadrivalent, Slit Virus, Im Use 3Y & Up [id number] 31131 Given 09/17/2015 Pneumococcal Immunization L0 [id number] 16891 Given 09/02/2015 Influenza Vaccin e (Fluzone) 3Yrs Of Age Or Older Medicare Plans [id number] 18551 Given 08/20/2014 Influenza Virus Vac. Split Virus Individuals 3 Years And Above [id number] Q2037 Given 08/20/2014 Influenza Vaccin e (Fluvirin) 3Yrs Of Age Or Older Medicare Plans 32577 Given 08/21/2013 Influenza Vaccin e (Fluzone) 3Yrs Of Age Or Older Medicare Plans 05207 Given 08/21/2013 Influenza Virus Vac. Split Virus Individuals 3 Years And Above [id number] 49469 Given 08/20/2012 Influenza Virus Vac. Split Virus Individuals 3 Years And Above [id number] 38930 Given 08/20/2012 Influenza Vaccin e (Fluzone) 3Yrs Of Age Or Older Medicare Plans 52938 Given 08/17/2011 Influenza Virus Vac. Split Virus Individuals 3 Years And Above [id number] 35568 Given 08/17/2011 Influenza Vaccin e (Fluzone) 3Yrs Of Age Or Older Medicare Plans 00478 Given 08/05/2010 Pneumococcal Immunization [id number] 74754 Given 08/05/2010 Influenza Virus Vac. Split Virus Individuals 3 Years And Above [id number] 33178 Given 08/09/2009 Influenza Virus Vac. Split Virus Individuals 3 Years And Above [id number] 74722 Given 09/02/2008 Influenza Virus Vac. Split Virus Individuals 3 Years And Above [id number] 65108 Given 2007 Influenza Virus Vac. Split Virus Individuals 3 Years And Above 95032 Given 2007 Influenza Virus Vac. Split Virus Individuals 3 Years And Above [id number] 54139 Given 08/20/2006 Influenza Virus Vac. Split Virus Individuals 3 Years And Above 23749 Given 09/26/2004 Pneumococcal Immunization 37872 Given 09/30/2002 Influenza Virus Vac. Split Virus Individuals 3 Years And Above 11146 Given 09/17/2001 Influenza Immunization 70429 Given 11/01/2000 Influenza Immunization 10774 Given 09/20/1999 Pneumococcal Immunization 82438 Given 09/20/1999 Influenza Immunization 59284 Given 09/27/1998 Influenza Immunization 98466 Refused 08/26/2020 Influenza Virus Vaccine, Quadrivalent, Slit Virus, Im Use 3Y & Up Vital Signs Date Vital Result Comment 09/16/2021 2:54pm BP Systolic 116 mmHg BP Diastolic 78 mmHg Body Temperature 97.7 F Heart Rate 82 /min Respiratory Rate 20 /min Height 67 inches 5'7" Weight 205.00 lb [place] Body Weight 148 lb BMI (Body Mass Index) 32.1 kg/m2 O2 % BldC Oximetry 92 % (On O2 @ 3 LPM NC) 07/21/2021 11:41am BP Systolic 110 mmHg BP Diastolic 60 mmHg Body Temperature 97.6 F Heart Rate 88 /min Respiratory Rate 20 /min Height 67 inches 5'7" Weight 206.00 lb [place] Body Weight 148 lb BMI (Body Mass [...] eGFR 106 # Calc 6 eGFR Non-Afr. [place] 91 # Calc 7 Lipid Panel 06/16/2021 [facility] Chol 140 mg/dL 0 - 200 Trig 140 mg/dL 35 - 200 HDL 49 mg/dL 35 - 55 LDL_C 63 Calc Low 75 - 129 Cho/HDL Ratio 2.9 CALC Laboratory test finding 06/16/2021 [facility] CK 79 U/L 39 - 308 Laboratory test finding 06/16/2021 [facility] Hemoglobin A1c 7.0 % High 4.50-6.20 1 NORMAL RANGES Age WBC RBC HGB HCT MCV PLT Adult M 4.1-10.9 4.20-6.30 12.0-18.0 37.0-51.0 80- 140-440 Adult F 4.1-10.9 4.04-5.48 12.0-18.0 37.0-51.0 80 140-440 0 -1 Yr 5.0-20.0 3.9-5.9 15-18 [...] HCT IS 5% LESS SOURCE FOR DATA: [employer] 1800 OPERATION MANUAL( AUTOMATED BLOOD COUNTS AND DIFF.) APPENDIX B-3 2 SRC:LT LOWER LEG CX 3 Source of Specimen: LT LOWER LEG CX 4 Mixed skin mely Source of Specimen: LT LOWER LEG CX 5 NORMAL RANGES Age WBC RBC HGB HCT MCV PLT Adult M 4.1-10.9 4.20-6.30 12.0-18.0 37.0-51.0 8097 140-440 Adult F 4.1-10.9 4.04-5.48 12.0-18.0 37.0-51.0 [...] HCT IS 5% LESS SOURCE FOR DATA: [employer] 1800 OPERATION MANUAL( AUTOMATED BLOOD COUNTS AND [...] 2-19 YEARS EXCLUSIVE. 6 CKD-EPI 7 CKD-EPI Procedures Date Code Description Status 07/21/2021 58694 Office/Outpatient Established Mo d MDM 30-39 Min Completed 07/06/2021 27078 Office/Outpatient Established Mo d MDM 30-39 Min Completed 06/16/2021 10751 Office/Outpatient Established Mo d MDM 30-39 Min Completed 06/09/2021 26688 Office/Outpatient Established Mo d MDM 30-39 Min Completed Medical Devices Description No Information Available Encounters Type Date Location Provider Dx Diagnosis Office Visit 07/21/2021 11:30a [place] [facility] Jayson Meyer, FAAFP I87.2 Venous insufficiency (chronic) (peripher al) R60.0 Localized edema Z23 Encounter for immunization Office Visit 07/06/2021 3:15p [place] [facility] Yuval Meyer, FAAFP M25.562 Pain in left knee M25.462 Effusion, left knee L03.116 Cellulitis of left lower doss b Office Visit 06/16/2021 3:00p [place] [facility] Jayson Meyer, FAAFP I10 Essential (primary) hypertension E78.5 Hyperlipidemia, unspecified J44.9 Chronic obstructive pulmonar y disease, unspecified E11.9 Type 2 diabetes mellitus wit hout complications 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 I73.89 Other specified peripheral v ascular diseases Office Visit 06/09/2021 3:40p [place] [facility] Jayson Meyer, FAAFP M79.604 Pain in right leg W10.8xxA Fall (on) (from) other stair s and steps, initial encounter Assessments Date Code Description Provider 07/21/2021 I87.2 Venous insufficiency (chronic) ( peripheral) Hesham Day D.O., [facility] 07/21/2021 R60.0 Localized edema Hesham Day D.O., [facility] 07/21/2021 Z23 Encounter for immunization Marga Day D.O., FAA[facility] 07/06/2021 M25.562 Pain in left knee Hesham anthony D.O., [facility] 07/06/2021 M25.462 Effusion, left knee Hesham preciado D.O., [facility] 07/06/2021 L03.116 Cellulitis of left lower limb Nick Day D.O., [facility] 06/16/2021 I10 Essential (primary) hypertension Hesham Day D.O., [facility] 06/16/2021 E78.5 Hyperlipidemia, unspecified Zain Day D.O., [facility] 06/16/2021 J44.9 Chronic obstructive pulmonary di sease, unspecified Hesham Day D.O., [facility] 06/16/2021 E11.9 Type 2 diabetes mellitus without complications Hesham Day D.O., [facility] 06/16/2021 Z79.84 residential (current) use of oral hypoglycemic drugs Hesham Day D.O., [facility] 06/16/2021 I73.89 Other specified peripheral vascu lar diseases Hesham Day D.O., [facility] 06/09/2021 M79.604 Pain in right leg Hesham anthony D.O., [facility] 06/09/2021 W10.8xxA Fall (on) (from) other stairs an d steps, initial encounter Hesham Day D.O., FAAFP Plan of Treatment Future Appointment(s):* 10/20/2021 2:00 pm - Hesham Day D.O., FAAFP at [facility] Functional Status Description No Information Available Mental Status Description No Information Available Referrals Refer to Reason for Referral Status Appt Date Bacilio Alvarez M.D. edema / chronic venous insu ffiency with weeping left leg please eval Sent [address] [place], [place] [id number] [phone]
[2021-09-22 18:31] LABS: ABG BASE EXCESS 8.4 (-2.0-2.0); ABG HCO3 36.4 MEQ/L (22.0-26.0); ABG O2 SATURATION 96.7 % (95.0-99.0); ABG STANDARD HCO3 32.2 MEQ/L (22.0-26.0); ABG TOTAL CO2 38.5 MEQ/L (23.0-31.0); ABG pH (ARTERIAL) 7.344 UNITS (7.350-7.450)
--- OUTSIDE RECORDS SUMMARY | 2021-09-22 18:31 | CCD | Continuity of Care Document ---
Author Author [facility] Organization Unknown Address [address] [place] [address] Phone Unavailable Care Team Providers Care Pricing Specialist Name Role Phone Yomi Barcenas D.P.M. AUTM [phone] Hesham Macdonald D.O. 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, 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 Assessments Date Code Description Provider 09/05/2021 I70.292 Other atherosclerosi s of [place] arteries of extremities, left leg Prashanth Ramirez [...] 09/05/2021 - Prashanth Ramirez* 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
--- OUTSIDE RECORDS SUMMARY | 2021-09-22 18:33 | CCD ---
Author Author [facility] Organization [facility] Address Unknown Phone Unavailable Care Team Providers Care Assistant Loan Processor Name Role Phone AMBROSIO, Blanca KATE Unavailable [...] Unavailable Unavailable PedroShazia frances MD Unavailable Unavailable PderoShazia frances MD Unavailable Unavailable PedroShazia frances MD Unavailable Unavailable PedroShazia frances MD Unavailable Unavailable PedroShzaia MD Unavailable Unavailable PedroShazia MD Unavailable Unavailable [...] Fish, J Hesham Unavailable Unavailable Fish, J Heshma Unavailable Unavailable Fish, J Hesham Unavailable Unavailable [...] Augustine, Blanca Ribera MD, FACS Unavailable Unavailable Uhang Augustine, Blanca Ribera MD, FACS Unavailable Unavailable [...] Unavailable Jovan, D Xiomara PA Unavailable Unavailable [place], N Adonis KICK BOXER Unavailable Unavailable Selin, N Adonis KICK BOXER Unavailable Unavailable [place], N Adonis KICK BOXER Unavailable Unavailable [place], N Adonis KICK BOXER Unavailable Unavailable [place], N Adonis KICK BOXER Unavailable Unavailable Selin, N Adonis KICK BOXER Unavailable Unavailable Selin, N Adonis KICK BOXER Unavailable Unavailable Selin, N Adonis KICK BOXER Unavailable Unavailable Selin, N Adonis KICK BOXER Unavailable Unavailable Selin, N Adonis KICK BOXER Unavailable Unavailable Selin, N Adonis KICK BOXER Unavailable Unavailable [place], N Adonis KICK BOXER Unavailable Unavailable [place], N Adonis KICK BOXER Unavailable Unavailable Selin, N Adonis KICK BOXER Unavailable Unavailable [place], N Adonis KICK BOXER Unavailable Unavailable [place], N Adonis KICK BOXER Unavailable Unavailable Selin, N Aodnis KICK BOXER Unavailable Unavailable [place], N Adonis KICK BOXER Unavailable Unavailable Selin, N Adonis KICK BOXER Unavailable Unavailable [place], N Adonis KICK BOXER Unavailable Unavailable Selin, N Adonis KICK BOXER Unavailable Unavailable Selin, N Adonis KICK BOXER Unavailable Unavailable Selin, N Adonis KICK BOXER Unavailable Unavailable Selin, N Adonis KICK BOXER Unavailable Unavailable [place], N Adonis KICK BOXER Unavailable Unavailable [place], N Adonis KICK BOXER Unavailable Unavailable [place], N Adonis KICK BOXER Unavailable Unavailable [place], N Adonis KICK BOXER Unavailable Unavailable Selin, N Adonis KICK BOXER Unavailable Unavailable [place], N Adonis KICK BOXER Unavailable Unavailable [place], N Adonis KICK BOXER Unavailable Unavailable Selin, N Adonis KICK BOXER Unavailable Unavailable Selin, N Adonis KICK BOXER Unavailable Unavailable Josefina Lux MD Unavailable Unavailable [...] Unavailable Vaneenkatinaam, Josefina Beltran MD Unavailable Unavailable Vaneenkatianam, Josefina Beltran MD Unavailable Unavailable Vaneenkatinaam, Josefina [...] is protected by Article 27-F of the [facility] Public Health law. If you continue you may have access to information: Regarding HIV / AIDS; Provided by facilities licensed or operated by the [facility] Office of Mental Health; or Provided by the [facility] Office for People With Developmental Disabilities. If such information is present, then the following [facility] mandated warning applies: This information has [...] law may result in a fine or intermediate sentence or both. A general authorization for the release of medical or other information is NOT sufficient authorization for further disc losure. Allergies and Adverse Reactions Type Description Substance Reaction Status Data Source(s ) Allergy to substance No Known Allergies No known allergies (situation ) PAUL (Bacilio Augustine MD [facility]) Drug Allergy NKDA NKDA [facility] ([facility]) Family History Family Member Name Family Member Gender Family Member Status Date o f Status Description Data Source(s) Unknown Male Problem [facility] ([facility] () Unknown Female Problem [facility] ([facility] Unknown Unknown Problem [facility] ([facility], [facility]) Unknown Unknown Problem [facility] ([facility], [facility]) father Unknown Female Problem [facility] ([facility]) Unknown Female Problem [facility] ([facility]) Unknown Female Problem [facility] ([facility]) Unknown Female Problem [facility] ([facility]) Encounters Encounter Providers Location Date Indications Data Source(s ) Outpatient Attender: Hesham Macdonald [place] [facility] 09/16/2021 01:45:0 0 PM EDT MED[facility] ([facility] Outpatient Attender: Bacilio Alvarez MDConsultant: Hesham Fis h 09/15/2021 11:25:00 AM EDT - [facility] Alvarez MDConsultant: Hesham Fis h 09/08/2021 11:33:00 AM EDT - 09/08[facility] Jessica KATE Main Office 09/05/2021 02:30:00 P M EDT [facility] ([facility]) Outpatient Attender: Bacilio Alvarez MDConsultant: Hesham Fis h 08/30/2021 11:31:00 AM EDT 08/30/2021 [facility] Josefina Lux MD Physical Therap y 08/08/2021 02:45:00 PM EDT [facility] Outpatient Attender: Hesham [facility] [place] [facility] 07/21/2021 11:30:0 0 AM EDT MED[facility] ([facility] Outpatient Attender: Hesham [employer] [place] [facility] 07/06/2021 03:15:0 0 PM EDT MED[facility] ([facility] Outpatient Attender: XIOMARA newelly 07/01/2021 04:15:00 PM EDT [facility] ([facility]) Outpatient Attender: Hesham Torres [place] [facility] 06/16/2021 03:00:0 0 PM EDT MED[facility] ([facility] Emergency Attender: Allan Willard MDConsultant: Hesham Macdonald 06/09/2021 06:05:00 PM EDT - 06/09/2021 10:32:00 PM EDT [facility] Patient discharged. Outpatient Attender: Hesham [employer] [place] [facility] 06/09/2021 03:40:0 0 PM EDT MED[facility] ([facility] Outpatient<td ID="[email or web address] [email or web address]">NEW PATIENT WITH REFERRAL</td><td>Bacilio Rosen MD, [facility]</td><td>Bacilio Rosen MD [facility]</td><td>05/05/2021</td><td>11:47AM</td><td>1:08PM</td><td><content ID="[email or web address]">Taking Medication For Diabetes Long-term Use of [...] Bacilio Augustine MD, FACS Bacilio Rosen MD [facility] 05/05/2021 11:47:00 AM EDT - 05/05/2021 01:08:00 PM EDT Borderline Glaucoma Open Angle with Bord corbin Findings Both EyesCataract Senile NuclearDiabetes Mellitus Type 2 Without ComplicationDermatochalasisVitreous Disorders DegenerationRetinopathy Hyperten sive Both EyesEssential HypertensionHistory of Nicotine DependenceDry Eye Syndrome Both EyesCataract Senile Cortical BilateralTaking Medication For Diabetes Long-term Use of Oral Hypoglycemics PAUL (Bacilio Augustine MD [facility]) Borderline Glaucoma Open Angle with Bord corbin Findings Both Eyes Cataract Senile Nuclear Diabetes Mellitus Type 2 Without Complic ation Dermatochalasis Vitreous Disorders Degeneration Retinopathy Hypertensive Both Eyes Essential Hypertension History of Nicotine Dependence Dry Eye Syndrome Both Eyes Cataract Senile Cortical Bilateral Taking Medication For Diabetes Long-term Use of Oral Hypoglycemics Outpatient Attender: Alvaro Pruett/Balaji/Caleb/Jackie escalante 04/13/2021 03:00:00 PM EDT [facility] Out[facility] Attender: Adonis Smallwood NPReferrer: Adonis HECK-SJPMookieDIANE 03/14/2021 01:39:32 PM EDT [facility] Outpatient Attender: Adonis Smallwood NPReferrer: Adonis [email or web address] 03/14/2021 01:09:44 PM EDT - 03/14/2021 02:00:04 PM EDT [facility] Outpatient Attender: Hesham Macdonald [place] [facility] 03/01/2021 01:00:0 0 PM EDT MED[facility] ([facility] Outpatient Attender: Xiomara KATE [place] [facility] 01:40:00 PM EST [facility] ([facility] Outpatient Attender: Hesham [facility] 11/30/2020 12:15:0 0 PM EST [facility] ([facility] Outpatient Attender: Alvaro Pruett/Balaji/Caleb/Jackie escalante 10/14/2020 02:00:00 PM EST MED[facility] ([facility], ) Outpatient Attender: Adonis Smallwood NP [email or web address] 020 12:00:00 AM EST - 09/13/2020 01:21:30 PM EST [facility] Outpatient Attender: Hesham Macdonald [place] [facility] 08/26/2020 12:45:0 0 PM EDT [facility] ([facility] Immunizations Vaccine Date Status Description Data Source(s) New in 2012. IIV4 07/21/2021 11:40:00 AM EDT completed [facility] ([facility] COVID-19 VACCINE Moderna 12/30/2020 12:00:00 AM EST completed [facility] Vaccine Series Complete: YESThis Data wa s Submitted to [facility] Via [employer]. COVID-19 VACCINE Moderna 12/02/2020 12:00:00 AM EST completed [facility] Vaccine Series Complete: NOThis Data was Submitted to [facility] Via [employer]. New in 2012. IIV4 08/26/2020 12:54:00 PM EDT completed [facility] ([facility] Medications Medication Brand Name Start Date Product Form Dose Route Admi nistrative Instructions Pharmacy Instructions Status Indications Reaction Description Data Source(s) sitagliptin 50 MG Oral Tablet [Januvia] Januvia 08/08/2021 12:00:0 0 AM EDT ORAL active [facility] ([facility]) doxycycline hyclate 100 MG Oral Capsule Doxycycline Hyclate 07/06/2021 12:00:00 AM EDT ORAL completed [facility] ([facility] Diltiazem Hydrochloride 30 MG Oral Tablet dilTIAZem HC l 30 MG Oral Tablet dilTIAZem HCl 30 MG Oral Tablet 05/05/2021 12:00:00 AM EDT 1 active diltiazem hydrochloride 30 MG Oral Tablet PAUL (Bacilio Augustine MD [facility]) 60 ACTUAT formoterol fumarate 0.005 MG/A CTUAT / mometasone furoate 0.2 MG/ACTUAT Metered Dose Inhaler [Dulera] Dulera 200-5 MCG/ACT Inhalation Aerosol Dulera 200-5 MCG/ACT Inhalation Aerosol 05/05/2021 12:00:00 AM EDT active 60 ACTUAT formoterol fumarate 0.005 MG/A CTUAT / mometasone furoate 0.2 MG/ACTUAT Metered Dose Inhaler [Dulera] PAUL (Bacilio Augustine MD [facility]) ferrous gluconate 324 MG Oral Tablet Jose anil Gluconate 324 (37.5 Fe) MG Oral Tablet Ferrous Gluconate 324 (37.5 Fe) MG Oral Tablet 12:00:00 AM EDT 1 active ferrous gluconate 324 MG Oral Tablet PAUL (Bacilio Augustine MD [facility]) apixaban 5 MG Oral Tablet [Eliquis] Eliquis 5 MG Oral Tablet Eliquis 5 MG Oral Tablet 05/05/2021 12:00:00 AM EDT 1 active apixaban 5 MG Oral Tablet [Eliquis] PAUL (Bacilio Augustine MD [facility]) pantoprazole 40 MG Delayed Release Oral Tablet Pantoprazole Sodium 40 MG Oral Tablet Delayed Release Pantoprazole Sodium 40 MG Oral Tablet Delayed Release 05/05/2021 12:00:00 AM EDT 1 active pantoprazole 40 MG Delayed Release Oral Tablet PAUL (Bacilio Augustine MD [facility]) sitagliptin 50 MG Oral Tablet [Januvia] Januvia 50 MG Oral Tablet Januvia 50 MG Oral Tablet 05/05/2021 12:00:00 AM EDT 1 active sitagliptin 50 MG Oral Tablet [Januvia] PAUL (Bacilio Augustine MD [facility]) latanoprost 0.05 MG/ML Ophthalmic Soluti on Latanoprost 0.005% Ophthalmic Solution Latanoprost 0.005% Ophthalmic Solution 05/05/2021 12:00:00 AM EDT 1 active latanoprost 0.05 MG/ ML Ophthalmic Solution PAUL (Bacilio Augustine MD [facility]) Furosemide 40 MG Oral Tablet Furosemide 40 MG Oral Tablet 12:00:00 AM EDT 1 active furosemide 40 MG Oral Tablet PAUL (Bacilio Augustine MD [facility]) Aspirin 81 MG Delayed Release Oral Table t Aspirin 81 MG Oral Tablet Delayed Release Aspirin 81 MG Oral Tablet Delayed Release 05/05/2021 12:00:00 AM EDT 1 active aspirin 81 MG Delayed Re lease Oral Tablet PAUL (Bacilio Augustine MD [facility]) Spironolactone 25 MG Oral Tablet Spironolactone 25 MG Oral T ablet 05/05/2021 12:00:00 AM EDT active spironol actone 25 MG Oral Tablet PAUL (Bacilio Augustine MD [facility]) Airduo Respiclick 113/14 Airduo Respiclick 113/14 04/13/2021 12:00: 00 AM EDT ORAL completed [facility] Airduo Digihaler Airduo Digihaler 04/13/2021 12:00:00 AM EDT RESPIRATORY active [facility] ) ferrous gluconate 324 MG Oral Tablet Ferrous Gluconate 12:00:00 AM EST ORAL active [facility] ([facility] sitagliptin 50 MG Oral Tablet [Januvia] Januvia 12/01/2020 12:00:0 0 AM EST active [facility] ([facility] Insurance Providers Payer name Policy type / Coverage type Policy ID Covered alliance party ID Covered alliance party's relationship to rashid Policy Rashid Plan Information Medicare Medicare Primary [id number] Self [id number] MEDICARE [id number] xxxxxxxxxxx [id number] Medicare Medicare Primary [id number] Self [id number] Medicare Medicare Primary [id number] Self [id number] Medicare Medicare Primary [id number] .1051.0 Self [id number] Medicare Medicare Primary [id number] [facility] [id number] Yuly [id number] Medicare Medicare Primary [id number] Self [id number] MEDICARE [id number] Yuly [id number] Medicare Medicare Primary [id number] .99.716.1051.0 Self [id number] Medicare Medicare Primary [id number] [facility] [id number] xxxxxxxxxxx [id number] Medicare Medicare Primary [id number] Self [id number] MEDICARE [id number] Yuly [id number] A [place] Primary [id number] Self [id number] [employer] Options Medigap Part B [id number] Self [id number] Medicare [place] Medicare Primary [id number] Self [id number] [employer] [facility] Medigap Part B [id number] Self [id number] [facility] [facility] Medigap Part B [id number] Self Medicare [place] Medicare Primary [id number] Self [id number] [facility] Medigap Part B [id number] Self [id number] Medicare [place] Medicare Primary [id number] Self [employer] [facility] [employer] [id number] SP [id number] Medicare Dme Supplies Medigap Part B [id number] Self [id number] [facility]/ Health Care Options Medigap Part B [id number]9.177.97667.0 Self [id number] Medicare - NGS Medicare Primary [id number] 2.16.840.1.449499.3.227.99.177.39372.0 Self 1 [id number] [employer] Medigap Part B [id number] 2.16.840.1.467897.3.227.99.716.1 051.0 Self [id number] [employer]arp Medigap Part B [id number] 2.16.840.1.510782.3.227.99.716.1 051.0 Self [id number] [employer]arp Medigap Part B [id number] 2.16.840.1.176535.3.227.99.716.1 051.0 Self [id number] MEDICARE [id number] SP [id number] A [facility] Options Medigap Part B [id number] 2.16.840.1.695189.3.227.99.1767.1723.0 Self [id number] Medicare Natl Gov't Servi Medicare Primary [id number] 2.16.840.1.226215.3.227.99.1767.1723.0 Self 1 [id number] MEDICARE [id number] SP [id number] MEDICARE C [id number] S [id number] [facility]/ [facility] Care Options Medigap Part B [id number] Self [id number] Medicare - NGS Medicare Primary [id number]9.177.16182.0 Self 1 [id number] [employer] Medigap Part B [id number] .0 Self [facility] Options Medigap Part B [id number] Self Medicare Natl Gov't Servi Medicare Primary [id number] Self Medicare Dme Supplies Medigap Part B [id number] Self AARP [facility] Supplemental F [id number] SELF [id number] Medicare C [id number] SELF [id number] A MEDICARE -O/P [id number] 18 [id number] [facility] [facility] [place] [id number] 18 [id number] [employer] OPTIONS UNAVAILABLE UNAVAILABLE MEDICARE PART A [facility] [place] [id number] 18 [id number] MEDICARE [id number] SP [id number] [id number] [employer] OPTIONS [id number] SP [id number] MEDICARE PART A -O/P [id number] 18 [id number] AARP HEALTH CARE OPTIONS-O/P [id number] 18 [id number] Medicare Part B [facility] Other 0 [id number] Self 0 MEDICARE [id number] SP [id number] A MEDICARE C [id number] S [id number] AARP O [id number] S [id number] [employer]arp Medigap Part B [id number] Self [id number] Aarp Medigap Part B [id number] Self [id number] Aarp Medigap Part B [id number] Self [id number] Aarp Medigap Part B [id number] 051.0 Self [id number] MEDICARE [id number] SP [id number] A [employer]arp Medigap Part B [id number] 99773.0 Self [id number] Medicare [place]GS Medicare Primary [id number] Self [id number] MEDICARE C [id number] S [id number] A [employer]arp Medigap Part B [id number]..[id number] 051.0 Self [id number] Aarp/ Health Care Options Medigap Part B [id number] Self 0 [id number] Medicare - NGS Medicare Primary [id number] Self 1 [id number] Medicare Dme Supplies Medigap Part B [id number] Self [id number] Medicare Dme Supplies [place] Part B [id number] Self [id number] Problems, Conditions, and Diagnoses Code Display Name Description Problem Type Effective Dates Data Source(s) K94367 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- pressure chronic ulcer of left calf with unspecified severity Diagnosis 09/08/2021 11:33:00 AM [facility] X09645 Unspecified place in unspeci fied non-institutional (private) residence as the place of occurrence of the external cause Unspecified place in unspecified non-institutional (private) residence as the place of occurrence of the external cause Diagnosis 06/09/2021 06:05:00 PM [facility] [id number] Fall on same level from slip ping, tripping and stumbling with subsequent striking against other object, initial encounter Fall on same level from slipping, tripping and stumbling with subsequent striking against other object, initial encounter Diagnosis 06/09/2021 06:05:00 PM [facility] A22969 Presence of left artificial hip joint Pr esence of left artificial hip joint Diagnosis 06/09/2021 06:05:00 PM [facility] B40590 Personal history of nicotine dependence Personal history of nicotine dependence Diagnosis 06/09/2021 06:05:00 PM [facility] Z7984 rn long term care (current) use of oral hypoglyc emic drugs rn long term care (current) use of oral hypoglycemic drugs Diagnosis 06/09/2021 06:05:00 PM [facility] Z7982 detention (current) use of aspirin detention (cu rrent) use of aspirin Diagnosis 06/09/2021 06:05:00 PM [facility] Z7901 rn long term care (current) use of anticoagulant s rn long term care (current) use of anticoagulants Diagnosis 06/09/2021 06:05:00 PM [facility] L5453AB Unspecified injury of head, initial enco unter Unspecified injury of head, initial encounter Diagnosis 06/09/2021 06:05:00 PM [facility] Q88441 Effusion, right knee Effusion, right knee Diagnosis 06/09/2021 06:05:00 PM EDT [facility] E119 Type 2 diabetes mellitus without complic ations Type 2 diabetes mellitus without complications Diagnosis 06/09/2021 06:05:[address] [facility] I509 Heart failure, unspecified Heart failure, unspecified Diagnosis 06/09/2021 06:05:00 PM EDT [facility] J449 Chronic obstructive pulmonary disease, u nspecified Chronic obstructive pulmonary disease, unspecified Diagnosis 06/09/2021 06:05:00 PM EDT [facility] N3100LO Contusion of right knee, initial encount er Contusion of right knee, initial encounter Diagnosis 06/09/2021 06:05:00 PM EDT [facility] [id number] Unspecified injury of right lower leg, i nitial encounter Unspecified injury of right lower leg, initial encounter Diagnosis 06:05:00 PM EDT [facility] I10 Essential (primary) hypertension Essential (primary) h ypertension Diagnosis 03/14/2021 01:39:32 PM EDT [facility] E78.00 Pure hypercholesterolemia, unspecified P ure hypercholesterolemia, unspecified Diagnosis 03/14/2021 01:39:32 PM EDT [facility] I48.0 Paroxysmal atrial fibrillation Paroxysmal atrial fibri llation Diagnosis 03/14/2021 01:39:32 PM EDT [facility] 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 Chronic combined systolic (congestive) a Diagnosis 03/14/2021 01:09:44 PM EDT [facility] L97.229 Chronic ulcer of calf Chronic ulcer of calf Problem 08/30/2021 12:00:00 AM [facility] [id number] Pure hypercholesterolemia Pure hypercholesterolemia Pr oblem 08/08/2021 12:00:00 AM EDT [facility] 94277939 Essential hypertension Essential hypertension Problem 08/08/2021 12:00:00 AM EDT [facility] 379.21 Vitreous Disorders Degeneration Vitreous Disorders Deg eneration Problem 05/05/2021 12:00:00 AM EDT PAUL (Bacilio Augustine MD [facility]) [id number] 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 Problem 05/05/2021 12:00:00 AM EDT PAUL (Bacilio Augustine MD [facility]) 366.16 Cataract Senile Nuclear Cataract Senile Nuclear Proble m 05/05/2021 12:00:00 AM EDT PAUL (Bacilio Augustine MD [facility]) [id number] 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 Open Angle with Borderline Findings Both Eyes Problem 05/05/2021 12:00:00 AM EDT PAUL (Bacilio Augustine MD [facility]) 71365562 Retinopathy Hypertensive Both Eyes Retinopathy H ypertensive Both Eyes Problem 05/05/2021 12:00:00 AM EDT PAUL (Bacilio dwyer MD [facility]) 401.9 Essential Hypertension Essential Hypertension Problem 05/05/2021 12:00:00 AM EDT PAUL (Bacilio Augustine MD [facility]) 748292301 History of Nicotine Dependence History of Nicotine Dep endence Problem 05/05/2021 12:00:00 AM EDT PAUL (Bacilio Augustine MD [facility]) 250.00 Diabetes Mellitus Type 2 Without Complic ation Diabetes Mellitus Type 2 Without Complication Problem 05/05/2021 12:00:00 AM EDT PAUL (Rudi Augustine MD [facility]) 374.87 Dermatochalasis Dermatochalasis Problem 05/05/2021 12:0 0:00 AM EDT PAUL (Bacilio Augustine MD [facility]) 366.15 Cataract Senile Cortical Bilateral Cataract Brittaney le Cortical Bilateral Problem 05/05/2021 12:00:00 AM EDT PUAL (Bacilio dwyer MD [facility]) Z79.84 Taking Medication For Diabetes Long-term Use of Oral Hypoglycemics Taking Medication For Diabetes Long-term Use of Oral Hypoglycemics Problem 05/05/2021 12:00:00 AM EDT PAUL (Bacilio Augustine MD [facility]) Surgeries/Procedures Procedure Description Date Indications Data Source(s) OFFICE OUTPATIENT VISIT 25 MINUTES 09/16/2021 12:00:00 AM EDT MEDJENNIE ([facility] OFFICE OUTPATIENT VISIT 25 MINUTES 09/08/2021 12:00:00 AM EDT MEDENT ([facility]) DUP-SCAN LXTR ART/ARTL BPGS UNI/LMTD STUDY 09/05/2021 12:00:00 AM EDT MEDENT ([facility]) OFFICE OUTPATIENT VISIT 15 MINUTES 09/05/2021 12:00:00 AM EDT MEDENT ([facility]) OFFICE OUTPATIENT NEW 30 MINUTES 08/30/2021 12:00:00 A M EDT MEDENT ([facility]) X-Ray Hips Bilateral With Pelvis 3-4 Views 08/08/2021 12:00:00 AM EDT MEDENT ([facility] ) OFFICE OUTPATIENT NEW 45 MINUTES 08/08/2021 12:00:00 A M EDT MEDENT ([facility] ) NON-INVAS PHYSIOLOGIC STD EXTREMITY ART 2 LEVEL 2020 12:00:00 AM EDT MEDENT ([facility] ) OFFICE OUTPATIENT VISIT 25 MINUTES 07/21/2021 12:00:00 AM EDT MEDENT ([facility] OFFICE OUTPATIENT VISIT 25 MINUTES 07/06/2021 12:00:00 AM EDT MEDENT ([facility] OFFICE OUTPATIENT NEW 30 MINUTES 07/01/2021 12:00:00 A M EDT MEDENT ([facility], [facility]) OFFICE OUTPATIENT VISIT 25 MINUTES 06/16/2021 12:00:00 AM EDT MEDENT ([facility] OFFICE OUTPATIENT VISIT 25 MINUTES 06/09/2021 12:00:00 AM EDT MEDENT ([facility] Surgical / procedural history Vasectomy, Left Hip Rep lacement, Left Leg Artery Surgical / procedural history Vasectomy, Left Hip Replacement, Left Leg Artery 05/05/2021 12:00:00 AM MASON MILLER (Bacilio dwyer MD [facility]) Gonioscopy Gonioscopy 05/05/2021 12:00:00 AM MASON DORSEY (Bacilio Augustine MD [facility]) Comprehensive Eye Exam (25) Comprehensive Eye Exam (25) 04/13 12:00:00 AM MASON MILLER (Bacilio Augustine MD [facility]) OPHTHALMIC US DX CORNEAL PACHYMETRY UNI/BI Corneal Pachymetr y ([place]) 05/05/2021 12:00:00 AM EDT PAUL (Bacilio Augustine MD [facility]) COMPUTERIZED OPHTHALMIC IMAGING OPTIC NERVE Scodi, opt ic nerve with interpretation and report ([place]) 05/05/2021 12:00:00 AM EDT GR HAYDEERAMSES (Bacilio Augustine MD [facility]) DEMO&/EVAL OF PT UTILIZ AERSL GEN/NEB/INHLR/IPPB 04/13 12:00:00 AM EDT MEDENT ([facility], ) OFFICE OUTPATIENT VISIT 25 MINUTES 03/01/2021 12:00:00 AM EDT MEDENT ([facility] OFFICE OUTPATIENT VISIT 15 MINUTES 12/31/2020 12:00:00 AM EST MEDENT ([facility] ECG ROUTINE ECG W/LEAST 12 LDS W/I&R <td>POCT AMB EKG</td><td>Routine</td><td>09/13/2020 1:04 PM EST</td><td> Paroxysmal atrial fibrillation</td><td> </td> 09/13/2020 06:04:00 PM EST Paroxysmal atrial fibrillation [facility] Paroxysmal atrial fibrillation DUP-SCAN LXTR ART/ARTL BPGS UNI/LMTD STUDY 09/02/2020 12:00:00 AM EDT MEDENT ([facility]) DUP-SCAN LXTR ART/ARTL BPGS UNI/LMTD STUDY 09/02/2020 12:00:00 AM EDT MEDENT ([facility]) Results ID Date Data Source [id number] 09/15/2021 01:37:00 PM EDT [facility] [address] [place] [address] PHONE: [phone] FAX: [phone] Name .................. : PAPITO Hussein Number.................. : [id number] ROOM. ................. : MR Number ................... : [id number] Stay type ............. : CLINIC Discharge Date......... ... : 09/15/21 Admit Date ......... : 09/15/21 Admit Phys .................... : PEDRO TAFOYA Date of ....... : 1945 Family Phys ................... : TORRES GARZA Phone .................. : [phone] Age ................................ : 76 Film# .................. .:[id number] Sex ................................. : Nazanin Unsigned transcriptions are preliminary reports and do not represent a medical or legal document [place] [id number] COMPLETE:09/15/21 12:47 CML [id number] Reason for Exam: DVT, ACUTE EMBOLISM R [...] rce(s) Supporting Document(s) ID Date Data Source [id number] 09/05/2021 02:10:00 PM EDT MEDENT ([facility]) Name Value Range Interpretation Code Description Data Trina rce(s) Supporting Document(s) Arterial Ultrasound Lower Extremity Left Laboratory test result MEDENT ([facility]) ID Date Data Source [id number] 07/06/2021 03:56:00 PM EDT MEDENT ([facility] Name Value Range Interpretation Code Description Data Trina rce(s) Supporting Document(s) Erythrocyte sedimentation rate by Westergren method 31 mm/hr 0-20 Above high normal MEDENT ([facility] ) NORMAL RANGES Age [...] HCT IS 5% LESS SOURCE FOR DATA: [employer] 1800 OPERATION MANUAL( AUTOMATED BLOOD COUNTS AND DIFF.) APPENDIX B-3 ID Date Data Source [id number] 07/06/2021 03:56:00 PM EDT MEDENT ([facility] Name Value Range Interpretation Code Description Data Trina rce(s) Supporting Document(s) WBC 8.8 10E3/uL 4.1-10.9 MEDENT ([facility] NORMAL RANGES Age WBC RBC [...] HCT IS 5% LESS SOURCE FOR DATA: [employer] DYN 1800 OPERATION MANUAL( AUTOMATED BLOOD COUNTS AND DIFF.) APPENDIX B-3 HGB 12.2 g/dL 12.0-18.0 [facility] ([facility] NORMAL RANGES Age WBC RBC HGB [...] HCT IS 5% LESS SOURCE FOR DATA: [employer] DYN 1800 OPERATION MANUAL( AUTOMATED BLOOD COUNTS AND DIFF.) APPENDIX B-3 RBC 4.24 10E6/uL 4.20-6.30 [facility] ([facility] NORMAL RANGES [...] HCT IS 5% LESS SOURCE FOR DATA: [employer] 1800 OPERATION MANUAL( AUTOMATED BLOOD COUNTS AND [...] DIFF.) APPENDIX B-3 MCH 28.8 pg 26.0-32.0 [facility] ([facility] NORMAL RANGES Age [...] HCT IS 5% LESS SOURCE FOR DATA: [employer] 1800 OPERATION MANUAL( AUTOMATED BLOOD COUNTS AND DIFF.) APPENDIX B-3 MCV 95.0 fL 80.0-97.0 [facility] ([facility] NORMAL RANGES Age WBC [...] HCT IS 5% LESS SOURCE FOR DATA: [employer] 1800 OPERATION MANUAL( AUTOMATED BLOOD COUNTS AND DIFF.) APPENDIX B-3 RDW-CV 15.4 % 11.5-14.5 Above high normal [facility] ([facility] NORMAL RANGES Age [...] DIFF.) APPENDIX B-3 PLT 236 10E3/uL 140-440 [facility] ([facility] NORMAL RANGES Age WBC RBC [...] MCHC 30.3 g/dL 31.0-36.0 Below low normal [facility] ( [facility] NORMAL RANGES Age WBC [...] DIFF.) APPENDIX B-3 Neut% 71.5 % 37.0-92.0 [facility] ([facility] NORMAL RANGES Age WBC RBC [...] HCT IS 5% LESS SOURCE FOR DATA: [employer] 1800 OPERATION MANUAL( AUTOMATED BLOOD COUNTS AND DIFF.) APPENDIX B-3 MXD% 13.5 % 0.1-24.0 [facility] ([facility] NORMAL [...] HCT IS 5% LESS SOURCE FOR DATA: [employer] 1800 OPERATION MANUAL( AUTOMATED BLOOD COUNTS AND DIFF.) APPENDIX B-3 Lym% 15.0 % 10.0-58.5 [facility] NORMAL RANGES Age [...] HCT IS 5% LESS SOURCE FOR DATA: [employer] 1800 OPERATION MANUAL( AUTOMATED BLOOD COUNTS AND DIFF.) APPENDIX B-3 MXD# 1.2 10E3/uL 0.0-1.8 [facility] ([facility] NORMAL RANGES Age WBC RBC [...] HCT IS 5% LESS SOURCE FOR DATA: [employer] DYN 1800 OPERATION MANUAL( AUTOMATED BLOOD COUNTS AND DIFF.) APPENDIX B-3 Lym# 1.3 10E3/uL 0.6-4.1 [facility] ([facility] NORMAL RANGES Age WBC RBC HGB [...] DIFF.) APPENDIX B-3 Neut# 6.3 % 2.0-7.8 [facility] ([facility] NORMAL RANGES Age WBC RBC HGB [...] DIFF.) APPENDIX B-3 MPV 9.3 fL 9.0-13.0 [facility] ([facility] NORMAL RANGES Age WBC RBC HGB [...] DIFF.) APPENDIX B-3 ID Date Data Source [id number] 07/06/2021 03:49:00 PM EDT MEDENT ([facility] Name Value Range Interpretation Code Description Data Trina rce(s) Supporting Document(s) Bacteria identified in Unspecified specimen by Aerobe culture Laboratory test result MEDENT ([facility] SRC:LT LOWER LEG CX Bacteria identified in Unspecified specimen by Culture Laborator y test result MEDENT ([facility] ) SRC:LT LOWER LEG CX ID Date Data Source [id number] 07/06/2021 03:49:00 PM EDT MEDENT ([facility] Name Value Range Interpretation Code Description Data Trina rce(s) Supporting Document(s) Bacteria identified in Unspecified specimen by Aerobe culture Laboratory test result MEDENT ([facility] ID Date Data Source [id number] 06/16/2021 03:26:00 PM EDT MEDENT ([facility] Name Value Range Interpretation Code Description Data Trina rce(s) Supporting Document(s) Hemoglobin A1c/Hemoglobin.total in Blood 7.0 % 4.50-6.20 Above high normal MED[facility] ([facility] ID Date Data Source [id number] 06/16/2021 03:26:00 PM EDT MEDENT ([facility] Name Value Range Interpretation Code Description Data Trina rce(s) Supporting Document(s) Creatine kinase [Enzymatic activity/volume] in Serum or Plasma 79 U /L 39-308 MED[facility] ([facility] NORMAL RANGES Age WBC [...] HCT IS 5% LESS SOURCE FOR DATA: [employer] 1800 OPERATION MANUAL( AUTOMATED BLOOD COUNTS AND [...] 2-19 YEARS EXCLUSIVE. ID Date Data Source [id number] 06/16/2021 03:26:00 PM EDT MEDENT (Famil y [...] HCT IS 5% LESS SOURCE FOR DATA: [employer] 1800 OPERATION MANUAL( AUTOMATED BLOOD COUNTS AND [...] HCT IS 5% LESS SOURCE FOR DATA: [employer] DYN 1800 OPERATION MANUAL( AUTOMATED BLOOD COUNTS [...] 2-19 YEARS EXCLUSIVE. Trig 140 mg/dL 35-200 [facility] ([facility] NORMAL [...] HCT IS 5% LESS SOURCE FOR DATA: [employer] 1800 OPERATION MANUAL( AUTOMATED BLOOD COUNTS AND [...] Cho/HDL Ratio 2.9 CALC MEDENT ([facility] NORMAL RANGES Age WBC [...] HCT IS 5% LESS SOURCE FOR DATA: [employer] 1800 OPERATION MANUAL( AUTOMATED BLOOD COUNTS AND [...] HCT IS 5% LESS SOURCE FOR DATA: [employer] DYN 1800 OPERATION MANUAL( AUTOMATED BLOOD COUNTS [...] 2-19 YEARS EXCLUSIVE. ID Date Data Source [id number] 06/16/2021 03:26:00 PM EDT MEDENT ([facility] Name Value Range Interpretation Code Description Data Trina rce(s) Supporting Document(s) Glu 160 mg/dL 70-110 Above high normal MEDENT ([facility] NORMAL RANGES Age [...] HCT IS 5% LESS SOURCE FOR DATA: [employer] 1800 OPERATION MANUAL( AUTOMATED BLOOD COUNTS AND [...] YEARS EXCLUSIVE. BUN 21 mg/dL 8-23 ALAN ([facility] NORMAL RANGES Age WBC [...] HCT IS 5% LESS SOURCE FOR DATA: [employer] 1800 OPERATION MANUAL( AUTOMATED BLOOD COUNTS AND [...] 2-19 YEARS EXCLUSIVE. Creat 0.7 mg/dL 0.7-1.2 [facility] ([facility] NORMAL [...] HCT IS 5% LESS SOURCE FOR DATA: [employer] 1800 OPERATION MANUAL( AUTOMATED BLOOD COUNTS AND [...] 2-19 YEARS EXCLUSIVE. BUN/Creatinine Ratio 29.8 Calc [facility] ([facility] NORMAL RANGES Age [...] HCT IS 5% LESS SOURCE FOR DATA: [employer] 1800 OPERATION MANUAL( AUTOMATED BLOOD COUNTS AND [...] 2-19 YEARS EXCLUSIVE. Na 141 mmol/L 136-145 [facility] ([facility] NORMAL RANGES Age WBC [...] HCT IS 5% LESS SOURCE FOR DATA: [employer] 1800 OPERATION MANUAL( AUTOMATED BLOOD COUNTS AND [...] 2-19 YEARS EXCLUSIVE. K 4.0 mmol/L 3.5-5.1 [facility] ([facility] NORMAL RANGES [...] HCT IS 5% LESS SOURCE FOR DATA: [employer] 1800 OPERATION MANUAL( AUTOMATED BLOOD COUNTS AND [...] HCT IS 5% LESS SOURCE FOR DATA: [employer] 1800 OPERATION MANUAL( AUTOMATED BLOOD COUNTS AND [...] HCT IS 5% LESS SOURCE FOR DATA: [employer] 1800 OPERATION MANUAL( AUTOMATED BLOOD COUNTS AND [...] HCT IS 5% LESS SOURCE FOR DATA: [employer] 1800 OPERATION MANUAL( AUTOMATED BLOOD COUNTS AND [...] HCT IS 5% LESS SOURCE FOR DATA: [employer] DYN 1800 OPERATION MANUAL( AUTOMATED BLOOD COUNTS [...] HCT IS 5% LESS SOURCE FOR DATA: [employer] 1800 OPERATION MANUAL( AUTOMATED BLOOD COUNTS AND [...] HCT IS 5% LESS SOURCE FOR DATA: [employer] 1800 OPERATION MANUAL( AUTOMATED BLOOD COUNTS AND [...] 2-19 YEARS EXCLUSIVE. Alp 85.4 U/L 40-129 [facility] ([facility] NORMAL [...] HCT IS 5% LESS SOURCE FOR DATA: [employer] 1800 OPERATION MANUAL( AUTOMATED BLOOD COUNTS AND [...] YEARS EXCLUSIVE. Alt (SGPT) 16 U/L 0-41 [facility] NORMAL RANGES Age WBC [...] HCT IS 5% LESS SOURCE FOR DATA: [employer] 1800 OPERATION MANUAL( AUTOMATED BLOOD COUNTS AND [...] HCT IS 5% LESS SOURCE FOR DATA: [employer] DYN 1800 OPERATION MANUAL( AUTOMATED BLOOD COUNTS [...] HCT IS 5% LESS SOURCE FOR DATA: [employer] DYN 1800 OPERATION MANUAL( AUTOMATED BLOOD COUNTS [...] 2-19 YEARS EXCLUSIVE. Tbili 0.22 mg/dL 0.0-1.2 [facility] ([facility] NORMAL RANGES Age [...] HCT IS 5% LESS SOURCE FOR DATA: [employer] 1800 OPERATION MANUAL( AUTOMATED BLOOD COUNTS AND [...] 2-19 YEARS EXCLUSIVE. Anion Gap 10 mmol/L [facility] NORMAL RANGES Age WBC [...] HCT IS 5% LESS SOURCE FOR DATA: [employer] DYN 1800 OPERATION MANUAL( AUTOMATED BLOOD COUNTS [...] INDIVIDUALA AGED 2-19 YEARS EXCLUSIVE. eGFR Non-Afr. [place] Citizen 91 # MED[facility] ([facility] [...] HCT IS 5% LESS SOURCE FOR DATA: [employer] DYN 1800 OPERATION MANUAL( AUTOMATED BLOOD COUNTS [...] HCT IS 5% LESS SOURCE FOR DATA: [employer] 1800 OPERATION MANUAL( AUTOMATED BLOOD COUNTS AND [...] 2-19 YEARS EXCLUSIVE. ID Date Data Source [id number] 06/16/2021 03:26:00 PM EDT MEDENT ([facility] Name Value Range Interpretation Code Description Data Trina rce(s) Supporting Document(s) WBC 7.2 10E3/uL 4.1-10.9 [facility] ([facility] NORMAL RANGES Age WBC RBC [...] HCT IS 5% LESS SOURCE FOR DATA: [employer] 1800 OPERATION MANUAL( AUTOMATED BLOOD COUNTS AND [...] 2-19 YEARS EXCLUSIVE. HGB 13.5 g/dL 12.0-18.0 [facility] ([facility] NORMAL RANGES [...] HCT IS 5% LESS SOURCE FOR DATA: [employer] 1800 OPERATION MANUAL( AUTOMATED BLOOD COUNTS AND [...] YEARS EXCLUSIVE. RBC 4.82 10E6/uL 4.20-6.30 [facility] NORMAL RANGES Age WBC [...] HCT IS 5% LESS SOURCE FOR DATA: [employer] 1800 OPERATION MANUAL( AUTOMATED BLOOD COUNTS AND [...] 2-19 YEARS EXCLUSIVE. MCH 28.0 pg 26.0-32.0 [facility] ([facility] NORMAL RANGES [...] HCT IS 5% LESS SOURCE FOR DATA: [employer] 1800 OPERATION MANUAL( AUTOMATED BLOOD COUNTS AND [...] 2-19 YEARS EXCLUSIVE. MCV 92.9 fL 80.0-97.0 [facility] NORMAL [...] HCT IS 5% LESS SOURCE FOR DATA: [employer] 1800 OPERATION MANUAL( AUTOMATED BLOOD COUNTS AND [...] HCT IS 5% LESS SOURCE FOR DATA: [employer] 1800 OPERATION MANUAL( AUTOMATED BLOOD COUNTS AND [...] 2-19 YEARS EXCLUSIVE. PLT 283 10E3/uL 140-440 [facility] ([facility] NORMAL RANGES Age WBC RBC [...] HCT IS 5% LESS SOURCE FOR DATA: [employer] DYN 1800 OPERATION MANUAL( AUTOMATED BLOOD COUNTS [...] HCT IS 5% LESS SOURCE FOR DATA: [employer] 1800 OPERATION MANUAL( AUTOMATED BLOOD COUNTS AND [...] HCT IS 5% LESS SOURCE FOR DATA: [employer] 1800 OPERATION MANUAL( AUTOMATED BLOOD COUNTS AND [...] 2-19 YEARS EXCLUSIVE. Neut% 71.0 % 37.0-92.0 [facility] ([facility] NORMAL RANGES [...] HCT IS 5% LESS SOURCE FOR DATA: [employer] 1800 OPERATION MANUAL( AUTOMATED BLOOD COUNTS AND [...] 2-19 YEARS EXCLUSIVE. MXD% 9.0 % 0.1-24.0 [facility] ([facility] NORMAL [...] HCT IS 5% LESS SOURCE FOR DATA: [employer] 1800 OPERATION MANUAL( AUTOMATED BLOOD COUNTS AND [...] 2-19 YEARS EXCLUSIVE. Lym% 20.0 % 10.0-58.5 [facility] ([facility] NORMAL RANGES [...] HCT IS 5% LESS SOURCE FOR DATA: [employer] 1800 OPERATION MANUAL( AUTOMATED BLOOD COUNTS AND [...] 2-19 YEARS EXCLUSIVE. Neut# 5.2 % 2.0-7.8 [facility] ([facility] NORMAL [...] HCT IS 5% LESS SOURCE FOR DATA: [employer] 1800 OPERATION MANUAL( AUTOMATED BLOOD COUNTS AND [...] 2-19 YEARS EXCLUSIVE. Lym# 1.4 10E3/uL 0.6-4.1 [facility] ([facility] NORMAL RANGES Age WBC RBC [...] HCT IS 5% LESS SOURCE FOR DATA: [employer] 1800 OPERATION MANUAL( AUTOMATED BLOOD COUNTS AND [...] YEARS EXCLUSIVE. MPV 11.4 fL 9.0-13.0 ALAN ([facility] NORMAL RANGES Age [...] HCT IS 5% LESS SOURCE FOR DATA: [employer] 1800 OPERATION MANUAL( AUTOMATED BLOOD COUNTS AND [...] 2-19 YEARS EXCLUSIVE. MXD# 0.6 10E3/uL 0.0-1.8 [facility] ([facility] NORMAL RANGES Age WBC RBC [...] HCT IS 5% LESS SOURCE FOR DATA: [employer] 1800 OPERATION MANUAL( AUTOMATED BLOOD COUNTS AND [...] 2-19 YEARS EXCLUSIVE. ID Date Data Source [id number] 06/13/2021 09:20:00 AM EDT [facility] [address] [place] [address] PHONE: [phone] FAX: [phone] Name .................. : PAPITO Hussein Number.................. : [id number] ROOM. ................. : TR-07 MR Number ................... : [id number] Stay type ............. : E/R Discharge Date......... ... : 06/09/21 Admit Date ......... : 06/09/21 Admit Phys .................... : ALVA Moody Date of ....... : 1945 Family Phys ................... : TORRES GARZA Phone .................. : [phone] Age ................................ : 75 Film# .................. .:[id number] Sex ................................. : M Unsigned transcriptions are preliminary reports and do not represent a medical or legal document KNEE COMPLETE-4 OR MORE S R [id number] COMPLETE:06/09/21 21:42 DLA [id number] Reason(s): Hematoma RIGHT KNEE, 06/09/21: Prior examination: [...] rce(s) Supporting Document(s) ID Date Data Source [id number] 06/09/2021 06:05:00 PM EDT [facility] 1 OrderSheet [facility] Emergency Department [address] [place] [address] Phone #: ext- [phone] 06/09/2021 17:59 Patient: [...] rce(s) Supporting Document(s) ID Date Data Source [id number] 06/09/2021 06:05:00 PM EDT [facility] 1 Medication Reconciliation Report [facility] Emergency Department [address] [place] [address] Phone #: ext- [phone] 06/09/2021 17:59 Patient: [...] administered: 20:32 06/09/2021 2 Medication Reconciliation Report [facility] Emergency Department [address] [place] [address] Phone #: ext- [phone] 06/09/2021 17:59 Patient: LALO LUNA Sex: M : 1945 Age: 75yThe following Medications were prescribed to the patient:None. Name Value Range Interpretation Code Description Data Trina rce(s) Supporting Document(s) ID Date Data Source [id number] 06/09/2021 06:05:00 PM EDT [facility] 1 Medication Administration Record [facility] Emergency Department [address] [place] [address] Phone #: ext- [phone] 06/09/2021 17:59 Patient: LALO LUNA Sex: M : 1945 Age: 75yWeight: 92.5 kgHeight/Length: 70 inBMI: 29.3ALLERGIES: No Known Drug Allergy Date/Time Medication Administered Medication OrderedGiven VICODIN (5-325MG) [PO] Vicodin (5-325mg) PO 1 tab (HIGH20:32 (ACETAMINOPHEN-HYDROCODONE) ALERT MEDICATION)Grant Echevarria RN Dose: 1 tab Tablets PO Name Value Range Interpretation Code Description Data Trina rce(s) Supporting Document(s) ID Date Data Source [id number] 06/09/2021 06:05:00 PM EDT [facility] 1 General Instructions [facility] Emergency Department [address] [place] [address] Phone #: ext- [phone] 06/09/2021 17:59 [id number] Sex: M : 1945 Age: 75yRight knee [...] by patient.Follow-up with: Hesham Macdonald, , , [address] [place] [address], [facility] hospital Follow up in two if not well. [...] greenish-yellow, then to yellow-brown. 2 General Instructions [facility] Emergency Department [address] [place] [address] Phone #: ext- [phone] 06/09/2021 17:59 Patient: [...] or eye Frequent bruising for unknown reasons [id number] [employer]. [address] [place] [address]. All rights reserved. This information is not intended as asubstitute for professional medical care. Always follow your healthcare professional's instructions.Fluid on the Knee 3 General Instructions [facility] Emergency Department [address] [place] [address] Phone #: ext- [phone] 06/09/2021 17:59 Patient: [...] level. This is very 4 General Instructions [facility] Emergency Department [address] [place] [address] Phone #: ext- [phone] 06/09/2021 17:59 Patient: [...] heat. If you have to wear a bkmb-ojx-joml knee brace, you can open it to apply the ice pack, or heat, directly to the knee. Never put ice directly on the skin. Always wrap the ice in a towel or other type of cloth. You may use jnhm-jqv-naumopj pain medicine to control pain, unless another [...] full work duties. If you have a ttlm-vph-yzbl knee brace, you can remove it to [...] 48 hours, or as advised Shaking chills [id number] [employer] [address] [place] [address]. All rights reserved. This information is not intended as asubstitute for professional medical care. Always follow your healthcare professional's instructions. You have been given the following additional information: Soft Tissue Contusion Knee Effusion 5 General Instructions [facility] Emergency Department [address] [place] [address] Phone #: ext- [phone] 06/09/2021 17:59 Patient: LALO LUNA Sex: M : 1945 Age: 75yYou may walk and bear weight as tolerated.(Electronically signed by Allan Willard 06/10/2021 01:11) Name Value Range Interpretation Code Description Data Trina rce(s) Supporting Document(s) ID Date Data Source [id number] 06/09/2021 06:05:00 PM EDT [facility] 1 Clinical Report - Nurses [facility] Emergency Department [address] [place] [address] Phone #: ext- [phone] 06/09/2021 17:59 Patient: [...] Ophthalmic, daily at bedtime. --18:27 06/09/21 Billy Oliver.AllergiesNo Known Drug Allergy. --18:22 06/09/21 Billy Oliver.PROBLEMS:COPD - Chronic Obstructive Pulmonary Disease. 2 Clinical Report - Nurses [facility] Emergency Department [address] [place] [address] Phone #: [phone] ext- [phone] 06/09/2021 17:59 Patient: LALO LUNA Sex: M [...] Oliver.PHYSICAL ASSESSMENT 3 Clinical Report - Nurses [facility] Emergency Department [address] [place] [address] Phone #: ext- [phone] 06/09/2021 17:59 Patient: OATRIDGE, LALO E [facility]#: [id number] Sex: M : 1945 Age: 75y To [...] 155/83. HR: 105. RR: 20. 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 Condition at departure: unchanged. No learning barriers present. Discharge instructions provided and reviewed with the patient. Reviewed ice and elevation instructions. Reviewed referral to family practice for followup. Activity restrictions (minimal use of injured extremity) reviewed. Patient verbalized understanding. Written instructions provided in Malaysian. The patient was discharged home and accompanied by aircraft magneto mechanic. He left in a wheelchair and via private vehicle. Fiscal Services Manager driving. --22:31 06/09/21 Grant Echevarria RN 22:29 [...] rce(s) Supporting Document(s) ID Date Data Source [id number] 06/09/2021 06:05:00 PM EDT [facility] 1 Clinical Report - Physicians/Mid Levels [facility] Emergency Department [address] [place] [address] Phone #: ext- [phone] 06/09/2021 17:59 Patient: LALO LUNA Sex: M [...] 2 Clinical Re port - Physicians/Mid Levels [facility] Emergency Department [address] [place] [address] Phone #: ext- [phone] 06/09/2021 17:59 Patient: [...] PROCEDURES 3 Clinical Report - Physicians/Mid Levels [facility] Emergency Department [address] [place] [address] Phone #: [phone] ext- [phone] 06/09/2021 17:59 [id number] Sex: M : 1945 Age: 75y Course [...] Follow-up with: Hesham Macdonald, , , [address] [place], [place] Follow up in two if not well. Call for an appointment. Reason for referral: evaluation. 4 Clinical Report - Physicians/Mid Levels [facility] Emergency Department [address] [place] [address] Phone #: ext- [phone] 06/09/2021 17:59 Patient: LALO LUNA Sex: M : 1945 Age: 75y(Electronically signed by Allan Willard 06/10/2021 01:11) Name Value Range Interpretation Code Description Data Trina rce(s) Supporting Document(s) ID Date Data Source [id number] 06/09/2021 11:06:00 [place] [address] ---------NAME--------- NUMBER SEX AGE ADMIT DISC. XRAY# F/C TYPE PAPITO Cabrales [id number] M 75 06/09/21 06/09/21 [id number] E/R DATE OF : 1945 M/R# [id number] #: [id number] TR-07 LOCATION: EMERGENCY DEPT TRANSCRIBED: 06/09/21 23:[address] HEAD W/O CONTRAST [id number] COMPLETED:06/09/21 21:42 DLA [id number] Reason(s): Head Injury PHYSICIAN: ALVA Moody R A D I O L O G Y R E P O R T PATIENT HISTORY:ACTUAL DOSE 934.7 mGy*cm head injuryPatient male. Verification of 2 patient identifiers performed.Time Out performed. correct body part and side all verified prior toexamination. Exam has been sent to [facility] - If further informationis needed, the number is . Report will be faxed to ED and/orXray. / BRAIN (DICOM Hx)CT Head ( Brain )History:ACTUAL DOSE 934.7 mGy*cm head injury Patient male. Verification of 2 patientidentifiers performed. Time Out performed. correct body part and side allverified prior to examination. [facility] - If further information is needed, [...] rce(s) Supporting Document(s) ID Date Data Source [id number] 03/14/2021 04:48:06 PM EDT [facility] Name Value Range Interpretation Code Description Data Trina rce(s) Supporting Document(s) &PDF [facility] ZPDPBa9wSfSKCoZw94/RTKsgHDZoj8CoBPqvKMz5AJxzKSHeJ7ZydFikZP2VLJAEDPwSXDRQHTNRLEKu 0b3 TqVXCeRiVDnSO2NT9aKIClwqXjqkT5kQ8hZM4XFKG+Gd3BPL4oq3TiDLj8YFUan9EbUTqaLRj3U5CnjG RmhuAgHemraQOUFIZjQXIvC2bscfv3hMUnChP8Ji4VCmKzc7AyAKRtZKkJid5n194yHwe+v8C+wwCLXb JWti7BQ8Nn7NsDw6BRnNXMSnXnB4ogDRB5gAwj0+Rp 4cL1gOsIPiz4W4MqHa8yLdk51tZofhz0vYXSgy2yx7qERfeboP1y/pnmWpxdib//Fzi9Lp2jgrvClRA0 cQcO4U9j/jLe8s2XHyWfcEUTpei0lLbQInfryVNOCOwrq/KsN3HDg2UOfd4oq0NuJwWhx2nIYClOpKW6 cWrtdxEOXix4qsbacC9MMIuIIgptd6L5Mj0MrXcmni [file] V++f//log rider+799pJBWoA2G3SIx+EkY6GlEU/mWPF4QDl+n//76dFSwXKTucUQ3cgL9S1E46ujwjYPIt7z [file] AgICAgICAgICAgICAgICAgICAgICAgICAgICAgICAg ICAgICAgICAgICAgICAgICAgICAgICAgICAgDQogICAgICAgICAgICAgICAgICAgICAgICAgICAgICAg ICAgICAgICAgICAgICAgICAgICAgICAgICAgICAgICAgICAgICAgICAgICAgICAgICAgICAgICAgICAg ICAgICAgICAgDQogICAgICAgICAgICAgICAgICAgIC AgICAgICAgICAgICAgICAgICAgICAgICAgICAgICAgICAgICAgICAgICAgICAgICAgICAgICAgICAgIC AgICAgICAgICAgICAgICAgICAgDQogICAgICAgICAgICAgICAgICAgICAgICAgICAgICAgICAgICAgIC AgICAgICAgICAgICAgICAgICAgICAgICAgICAgICAg ICAgICAgICAgICAgICAgICAgICAgICAgICAgICAgDQogICAgICAgICAgICAgICAgICAgICAgICAgICAg ICAgICAgICAgICAgICAgICAgICAgICAgICAgICAgICAgICAgICAgICAgICAgICAgICAgICAgICAgICAg ICAgICAgICAgICAgDQogICAgICAgICAgICAgICAgIC AgICAgICAgICAgICAgICAgICAgICAgICAgICAgICAgICAgICAgICAgICAgICAgICAgICAgICAgICAgIC AgICAgICAgICAgICAgICAgICAgICAgDQogICAgICAgICAgICAgICAgICAgICAgICAgICAgICAgICAgIC AgICAgICAgICAgICAgICAgICAgICAgICAgICAgICAg ICAgICAgICAgICAgICAgICAgICAgICAgICAgICAgICAgDQogICAgICAgICAgICAgICAgICAgICAgICAg ICAgICAgICAgICAgICAgICAgICAgICAgICAgICAgICAgICAgICAgICAgICAgICAgICAgICAgICAgICAg ICAgICAgICAgICAgICAgDQogICAgICAgICAgICAgIC AgICAgICAgICAgICAgICAgICAgICAgICAgICAgICAgICAgICAgICAgICAgICAgICAgICAgICAgICAgIC AgICAgICAgICAgICAgICAgICAgICAgICAgDQogICAgICAgICAgICAgICAgICAgICAgICAgICAgICAgIC AgICAgICAgICAgICAgICAgICAgICAgICAgICAgICAg WMVsTVIoZFJhVZDnNAQkTZZkBHHpCVGcDHJhDLPoWKUtHDOrPCc9V8oeAJMdAWTfAP9mVCq9Mw5+DQoN EyWyZAR9atHxsN8DGW5it6LqKJcqTLYtu0SmBIj7FD3ZIZWiFZgyGF1WOCwnhb6YAXHbJCIzuUVMc4ej KjCtZZI8IXMtKutcQA3SFWPdA3trmnRhNKPxCEAYKV ynVVQWUX9DVvUjU9RwxA19OHEGXs6+VKphvdJpQmeHIdD9ZSOvc1BcTAt6IO8LCQHiCFzxWY1YMOMzxL 7yCFydDU5UHeGsMnOqGCVMQjEuI74qiVYqKUq2Z5BrUuYkEJHtSukmFWNpNUuqGdXkWBQdSlOxOLfpOU 4+ID4+XWmoDN8CXJpvtrDmIJMnNr5WWRHkJXD0YNKz uKLmCsdsAHZCNUckAA9JbVDlYDV6iR3cRJgoDFGjQKFfN1pASzDfdIbzDQ22zNqbzmWmmJRvIFj+Pg0K AP1qr0BwGIb2ddAiRHgcQOE0VPtdOLPfIQAkEQLsVIF2RJB0LGVUBnZaDWPrUXBuMSspFGGtSKGzag5I QAEvMIXaLnD1OIMmHTWzGXOeMZntGFWrQSC7PTD2HI CvBLGqAM2AQgJjRQEeQRAcEBSqRMTaRRWcvq7WPYOkQCZrNQIzSRKjEUXkTNNuGVnoDNBsVFC7IeFwRW MsKJHpFZ9BKgEbBQBnRQN8WAYnDVTwLVHvgs8NWFBnKUUuNDz4QUKkEJYtJADdFOexGYJaSHC9XVNwDJ BkXRMwRQ6YWzFhXMRrBOttJRrhJHDhKOZctn6OFNZh SPViHgA6LZOiBTFoEYYvMOdxNAIiXGO5DnS5YMVzZMVuGY3CUrDgJMRzAWi6USIlJFOzMYNdck0ZZBUc ONMlYFPxHJLmBVRuSERqNDynKGAjCMI7GDt3EYTgNPNjOQ5ZOaTkGSOiKPx3ACbsTTQlWBVesr3MKKNq FFPeCGr6VdOwCEGpBTZaDUblQAXmYNJmTLAqGCYsFK UfJH1VPoPfMVKmMQZoMlGeYIOePODcfl5NPDQoMPVkJBWnNZYpSAClADWdNGlrYOXnFOThJeFaPEGwNP FpAZ8QKxVoNCOzQQP9JuxhONFfXWEbhw2MEJSaAOIfJxC3RXOcVICvVNXdJHxoJETyKDTxVOF2WBCxUJ CwPB3FQiXrHKVnKSO9ShUyNLLhUNZhkp0RWDXaWOYz HsO5QQFbKQOyEYSgWDnnSGWpQAHeQGp3DYPlFVMwAB7QYsIcZOCiVDEuAuIpYZGaIXVsam9EtGJnnYoy mx1RSDbVVp5GiJluJSY9JGnwVz6srVFuBCTuVFCKIs1PmrYqBPMsVKAUUIieJZPfBWX8CAJoMYPvADAm DSUpOyOhZtCpEOhbOvHbYuP0UZT3BvD0ZOMyEdZgPQ GfCiVcUfFjH2VnXPFgO3QsRDPnVCPzUUD+LI9zFLv+Aq0An9QccsK1laSgRBwlVMUcVI9ADSGOK2IAKn == ID Date Data Source [id number] 03/01/2021 02:31:00 PM EDT [facility] ([facility] Name Value Range Interpretation Code Description Data Trina rce(s) Supporting Document(s) Hemoglobin A1c/Hemoglobin.total in Blood 6.2 % 4.50-6.20 [facility] ([facility] ID Date Data Source [id number] 03/01/2021 02:31:00 PM EDT [facility] ([facility] Name Value Range Interpretation Code Description Data Trina rce(s) Supporting Document(s) Trig 125 mg/dL 35-200 [facility] ([facility] NORMAL RANGES Age [...] HCT IS 5% LESS SOURCE FOR DATA: [employer] 1800 OPERATION MANUAL( AUTOMATED BLOOD COUNTS AND [...] 2-19 YEARS EXCLUSIVE. Chol 136 mg/dL 0-200 [facility] ([facility] NORMAL [...] HCT IS 5% LESS SOURCE FOR DATA: [employer] 1800 OPERATION MANUAL( AUTOMATED BLOOD COUNTS AND [...] HCT IS 5% LESS SOURCE FOR DATA: [employer] 1800 OPERATION MANUAL( AUTOMATED BLOOD COUNTS AND [...] LDL_C 65 Calc 75-129 Below low normal [facility] ( [facility] NORMAL RANGES Age WBC [...] HCT IS 5% LESS SOURCE FOR DATA: [employer] 1800 OPERATION MANUAL( AUTOMATED BLOOD COUNTS AND [...] 2-19 YEARS EXCLUSIVE. Cho/HDL Ratio 2.9 CALC [employer] ([facility] NORMAL RANGES Age WBC RBC HGB [...] HCT IS 5% LESS SOURCE FOR DATA: [employer] 1800 OPERATION MANUAL( AUTOMATED BLOOD COUNTS AND [...] 2-19 YEARS EXCLUSIVE. ID Date Data Source [id number] 03/01/2021 02:31:00 PM EDT [facility] ([facility] Name Value Range Interpretation Code Description Data Trina rce(s) Supporting Document(s) Glu 119 mg/dL 70-110 Above high normal [facility] ([facility] NORMAL RANGES Age [...] HCT IS 5% LESS SOURCE FOR DATA: [employer] 1800 OPERATION MANUAL( AUTOMATED BLOOD COUNTS AND [...] 2-19 YEARS EXCLUSIVE. BUN 22 mg/dL 8-23 [facility] NORMAL RANGES Age WBC [...] HCT IS 5% LESS SOURCE FOR DATA: [employer] 1800 OPERATION MANUAL( AUTOMATED BLOOD COUNTS AND [...] HCT IS 5% LESS SOURCE FOR DATA: [employer] 1800 OPERATION MANUAL( AUTOMATED BLOOD COUNTS AND [...] YEARS EXCLUSIVE. BUN/Creatinine Ratio 36.7 CALC [facility] ([facility] NORMAL RANGES Age [...] HCT IS 5% LESS SOURCE FOR DATA: [employer] 1800 OPERATION MANUAL( AUTOMATED BLOOD COUNTS AND [...] 2-19 YEARS EXCLUSIVE. Na 139 mmol/L 136-145 [facility] ([facility] NORMAL RANGES Age WBC [...] HCT IS 5% LESS SOURCE FOR DATA: [employer] 1800 OPERATION MANUAL( AUTOMATED BLOOD COUNTS AND [...] 2-19 YEARS EXCLUSIVE. K 4.2 mmol/L 3.5-5.1 [facility] ([facility] NORMAL [...] HCT IS 5% LESS SOURCE FOR DATA: [employer] 1800 OPERATION MANUAL( AUTOMATED BLOOD COUNTS AND [...] YEARS EXCLUSIVE. CL 100.9 mmol/L 98.0-107.0 [facility] ([facility] NORMAL RANGES Age WBC [...] HCT IS 5% LESS SOURCE FOR DATA: [employer] 1800 OPERATION MANUAL( AUTOMATED BLOOD COUNTS AND [...] 2-19 YEARS EXCLUSIVE. CA 8.9 mg/dL 8.6-10.2 [facility] ([facility] NORMAL [...] HCT IS 5% LESS SOURCE FOR DATA: [employer] 1800 OPERATION MANUAL( AUTOMATED BLOOD COUNTS AND [...] HCT IS 5% LESS SOURCE FOR DATA: [employer] 1800 OPERATION MANUAL( AUTOMATED BLOOD COUNTS AND [...] 2-19 YEARS EXCLUSIVE. A/G Ratio 1.7 CALC [facility] ([facility] NORMAL [...] HCT IS 5% LESS SOURCE FOR DATA: [employer] 1800 OPERATION MANUAL( AUTOMATED BLOOD COUNTS AND [...] HCT IS 5% LESS SOURCE FOR DATA: [employer] 1800 OPERATION MANUAL( AUTOMATED BLOOD COUNTS AND [...] YEARS EXCLUSIVE. Alp 93.0 U/L 40-129 [facility] ([facility] NORMAL RANGES Age WBC [...] HCT IS 5% LESS SOURCE FOR DATA: [employer] 1800 OPERATION MANUAL( AUTOMATED BLOOD COUNTS AND [...] HCT IS 5% LESS SOURCE FOR DATA: [employer] 1800 OPERATION MANUAL( AUTOMATED BLOOD COUNTS AND [...] YEARS EXCLUSIVE. Ast (Sgot) 11 U/L 0-40 [facility] ([facility] NORMAL [...] HCT IS 5% LESS SOURCE FOR DATA: [employer] 1800 OPERATION MANUAL( AUTOMATED BLOOD COUNTS AND [...] YEARS EXCLUSIVE. Alt (SGPT) 8 U/L 0-41 [facility] ([facility] NORMAL RANGES Age WBC [...] HCT IS 5% LESS SOURCE FOR DATA: [employer] 1800 OPERATION MANUAL( AUTOMATED BLOOD COUNTS AND [...] HCT IS 5% LESS SOURCE FOR DATA: [employer] 1800 OPERATION MANUAL( AUTOMATED BLOOD COUNTS [...] 2-19 YEARS EXCLUSIVE. Tbili 0.18 mg/dL 0.0-1.2 [facility] ([facility] NORMAL [...] HCT IS 5% LESS SOURCE FOR DATA: [employer] 1800 OPERATION MANUAL( AUTOMATED BLOOD COUNTS AND [...] 2-19 YEARS EXCLUSIVE. Anion Gap 10 mmol/L [facility] ([facility] NORMAL RANGES Age [...] HCT IS 5% LESS SOURCE FOR DATA: [employer] 1800 OPERATION MANUAL( AUTOMATED BLOOD COUNTS AND [...] [facility] CKD-EPI eGFR Non-Afr. [place] Citizen 97 # [facility] ([facility] CKD-EPI ID Date Data Source [id number] 03/01/2021 02:31:00 PM EDT [facility] ([facility] Name Value Range Interpretation Code Description Data Trina rce(s) Supporting Document(s) Creatine kinase [Enzymatic activity/volume] in Serum or Plasma 55 U /L 39-308 [facility] ([facility] NORMAL RANGES Age WBC [...] HCT IS 5% LESS SOURCE FOR DATA: [employer] 1800 OPERATION MANUAL( AUTOMATED BLOOD COUNTS AND [...] 2-19 YEARS EXCLUSIVE. ID Date Data Source [id number] 03/01/2021 02:31:00 PM EDT [facility] ([facility] Name Value Range Interpretation Code Description Data Trina rce(s) Supporting Document(s) WBC 7.0 10E3/uL 4.1-10.9 [facility] ([facility] NORMAL RANGES Age WBC RBC [...] HCT IS 5% LESS SOURCE FOR DATA: [employer] 1800 OPERATION MANUAL( AUTOMATED BLOOD COUNTS AND [...] 2-19 YEARS EXCLUSIVE. RBC 4.77 10E6/uL 4.20-6.30 [employer] ([facility] NORMAL RANGES [...] HCT IS 5% LESS SOURCE FOR DATA: [employer] 1800 OPERATION MANUAL( AUTOMATED BLOOD COUNTS AND [...] HCT IS 5% LESS SOURCE FOR DATA: [employer] 1800 OPERATION MANUAL( AUTOMATED BLOOD COUNTS AND [...] 2-19 YEARS EXCLUSIVE. HCT 41.2 % 37.0-51.0 [facility] NORMAL RANGES Age WBC [...] HCT IS 5% LESS SOURCE FOR DATA: [employer] 1800 OPERATION MANUAL( AUTOMATED BLOOD COUNTS AND [...] 2-19 YEARS EXCLUSIVE. MCV 86.4 fL 80.0-97.0 [facility] ([facility] NORMAL RANGES [...] HCT IS 5% LESS SOURCE FOR DATA: [employer] 1800 OPERATION MANUAL( AUTOMATED BLOOD COUNTS AND [...] HCT IS 5% LESS SOURCE FOR DATA: [employer] 1800 OPERATION MANUAL( AUTOMATED BLOOD COUNTS AND [...] 2-19 YEARS EXCLUSIVE. PLT 295 10E3/uL 140-440 [facility] ([facility] NORMAL RANGES Age WBC RBC [...] HCT IS 5% LESS SOURCE FOR DATA: [employer] 1800 OPERATION MANUAL( AUTOMATED BLOOD COUNTS AND [...] HCT IS 5% LESS SOURCE FOR DATA: [employer] 1800 OPERATION MANUAL( AUTOMATED BLOOD COUNTS AND [...] 2-19 YEARS EXCLUSIVE. Neut% 71.3 % 37.0-92.0 [facility] ([facility] NORMAL [...] HCT IS 5% LESS SOURCE FOR DATA: [employer] 1800 OPERATION MANUAL( AUTOMATED BLOOD COUNTS [...] 2-19 YEARS EXCLUSIVE. Lym% 21.4 % 10.0-58.5 [facility] ([facility] NORMAL [...] HCT IS 5% LESS SOURCE FOR DATA: [employer] 1800 OPERATION MANUAL( AUTOMATED BLOOD COUNTS AND [...] HCT IS 5% LESS SOURCE FOR DATA: [employer] 1800 OPERATION MANUAL( AUTOMATED BLOOD COUNTS [...] 2-19 YEARS EXCLUSIVE. Lym# 1.5 10E3/uL 0.6-4.1 [employer] ([facility] NORMAL RANGES Age WBC RBC [...] HCT IS 5% LESS SOURCE FOR DATA: [employer] 1800 OPERATION MANUAL( AUTOMATED BLOOD COUNTS AND [...] 2-19 YEARS EXCLUSIVE. Neut# 5.0 % 2.0-7.8 [facility] ([facility] NORMAL [...] HCT IS 5% LESS SOURCE FOR DATA: [employer] 1800 OPERATION MANUAL( AUTOMATED BLOOD COUNTS AND [...] YEARS EXCLUSIVE. MXD# 0.5 10E3/uL 0.0-1.8 [facility] ([facility] NORMAL RANGES Age WBC RBC [...] HCT IS 5% LESS SOURCE FOR DATA: [employer] 1800 OPERATION MANUAL( AUTOMATED BLOOD COUNTS AND [...] 2-19 YEARS EXCLUSIVE. MPV 10.8 fL 9.0-13.0 [facility] ([facility] NORMAL RANGES [...] HCT IS 5% LESS SOURCE FOR DATA: [employer] 1800 OPERATION MANUAL( AUTOMATED BLOOD COUNTS AND [...] 2-19 YEARS EXCLUSIVE. Comment Laboratory test result [facility] ([facility] NORMAL RANGES [...] HCT IS 5% LESS SOURCE FOR DATA: [employer] 1800 OPERATION MANUAL( AUTOMATED BLOOD COUNTS AND [...] 2-19 YEARS EXCLUSIVE. ID Date Data Source [id number] 12/31/2020 02:57:00 PM EST [facility] ([facility] Name Value Range Interpretation Code Description Data Trina rce(s) Supporting Document(s) Leukocytes [#/volume] in Blood by Automated count 10.0 x10E3/uL 3.4-1 0.8 [facility] ([facility] Erythrocytes [#/volume] in Blood by Automated count 4.47 x10E6/uL 4.1 4-5.80 [facility] ([facility] Hemoglobin [Mass/volume] in Blood 9.8 g/dL 13.0-17.7 Below low nor mal [facility] ([facility] Hematocrit [Volume Fraction] of Blood by Automated count 34.5 % 37.5-51.0 Below low normal [facility] ([facility] ) Erythrocyte mean corpuscular volume [Entitic volume] by Auto mated count 77 fL 79-97 Below low normal [facility] Erythrocyte mean corpuscular hemoglobin [Entitic mass] by Automated count 21.9 pg 26.6-33.0 Below low normal [facility] ([facility] Erythrocyte mean corpuscular hemoglobin concentration [Mass/volume] by Automated count 28.4 g/dL 31.5-35.7 Below low normal [facility] ([facility] Erythrocyte distribution width [Ratio] by Automated count 16.1 % 11.6-15.4 Above high normal [facility] ([facility] ) Lymphs 8 % [facility] ([facility] Platelets [#/volume] in Blood by Automated count 316 x10E3/uL 150-450 [facility] ([facility] Neutrophils 80 % [facility] ([facility] Eosinophils/100 leukocytes in Blood by Automated count 3 % [facility] ([facility] Monocytes/100 leukocytes in Blood by Automated count 9 % [facility] ([facility] Basophils/100 leukocytes in Blood by Automated count 0 % [facility] ([facility] Neutrophils [#/volume] in Blood by Automated count 7.9 x10E3/uL 1.4-7.0 Above high normal [facility] ([facility] ) Immature cells [#/volume] in Blood Laboratory test result [facility] ([facility] Monocytes [#/volume] in Blood 0.9 x10E3/uL 0.1-0.9 [facility] ([facility] Lymphocytes [#/volume] in Blood 0.8 x10E3/uL 0.7-3.1 [facility] ([facility] Immature granulocytes/100 leukocytes in Blood by Automated count 0 % [facility] ([facility] Eosinophils [#/volume] in Blood by Automated count 0.3 x10E3/uL 0.0-0 .4 [facility] ([facility] Basophils [#/volume] in Blood by Automated count 0.0 x10E3/uL 0.0-0.2 [facility] ([facility] Immature granulocytes [#/volume] in Blood by Automated count 0.0 x10E3/uL 0.0-0.1 [facility] ([facility] Nucleated erythrocytes/100 leukocytes [Ratio] in Blood by Automated count Laboratory test result [facility] ([facility] Morphology [Interpretation] in Blood Narrative Laboratory test result [facility] ([facility] ID Date Data Source [id number] 12/14/2020 03:50:00 PM EST [facility] ([facility] Name Value Range Interpretation Code Description Data Trina rce(s) Supporting Document(s) Influenza A Amplification Laboratory test result Normal (applies to non- numeric results) [facility] ([facility] ) Negative results do not preclude influen za or RSV virus infection and should not be used as the sole basis for treatment or other patient management decisions. Influenza B Amplification Laboratory test result Normal (applies to non- numeric results) [facility] ([facility] ) Negative results do not preclude influen za or RSV virus infection and should not be used as the sole basis for treatment or other patient management decisions. RSV Amplification Laboratory test result Normal (applies to non-numeric results) [facility] ([facility] ) Negative results do not preclude influen za or RSV virus infection and should not be used as the sole basis for treatment or other patient management decisions. Laboratory test finding (navigational concept) Laboratory test r esult Normal (applies to non-numeric results) [facility] ([facility] A false negative result may [...] pathogens. DISCLAIMER: Testing was performed using the [employer] SARS-CoV-2 test. This test was developed and its performance characteristics determined by [employer]. This test has not been FDA cleared [...] or revoked sooner. ID Date Data Source [id number] 12/14/2020 03:50:00 PM EST [facility] Name Value Range Interpretation Code Description Data Trina rce(s) Supporting Document(s) SARS coronavirus 2 RNA [Presence] in Res piratory specimen by ANNALISE with probe detection NEGATIVE [facility] This lab was ordered by [facility] a nd reported by [facility]. ID Date Data Source [id number] 12/14/2020 02:07:00 PM EST [facility] ([facility] Name Value Range Interpretation Code Description Data Trina rce(s) Supporting Document(s) Blood Type Laboratory test result Normal (applies to non-n umeric results) [facility] ([facility] AB Screen (Indirect Debo)Vis Laboratory test result Normal (applies to non- numeric results) [facility] ([facility] ) ID Date Data Source [id number] 12/14/2020 02:07:00 PM EST [facility] ([facility] Name Value Range Interpretation Code Description Data Trina rce(s) Supporting Document(s) Lipoprotein lipase [Enzymatic activity/volume] in Serum or P lasma 128 U/L 73-393 Normal (applies to non-numeric results) [facility] ([facility] ID Date Data Source [id number] 12/14/2020 02:07:00 PM EST [facility] ([facility] Name Value Range Interpretation Code Description Data Trina rce(s) Supporting Document(s) Glucose, Fasting 133 mg/dL 70-100 Above high normal [facility] ([facility] Blood Urea Nitrogen 27 mg/dL 7-18 Above high normal [facility] ([facility] Glomerular Filtration Rate Laboratory test result Normal (applies to non- numeric results) [facility] ) <content>Units are mL/min/1.73 m2</content>
<content></content>
<content>Chronic Kidney Disease Staging per NKF:</content>
<content></content>
<content>Stage I & II GFR >=60 Normal to Mildly Decreased</content>
<content>Stage III GFR 30-59 Moderately Decreased</content>
<content>Stage IV GFR 15-29 Severely Decreased</content>
<content>Stage V GFR <15 Very Little GFR Left</content>
<content>ESRD GFR <15 on PALLETISER OPERATOR</content>
<content></content> Creatinine For GFR 0.75 mg/dL 0.70-1.30 Normal (applies to non -numeric results) [facility] ([facility] Potassium Serum 4.1 meq/L 3.5-5.1 Normal (applies to non-numeric results) [facility] ([facility] Sodium Level 140 meq/L 136-145 Normal (applies to non-numeric res ults) [facility] ([facility] Chloride Level 100 meq/L 98-107 Normal (applies to non-numeric r esults) [facility] ([facility] Carbon Dioxide Level 38 meq/L 21-32 Above high normal [facility] ([facility] Calcium Level 8.5 mg/dL 8.8-10.2 Below low normal MEDEN T ([facility] Anion Gap 2 meq/L 8-16 Below low normal [facility] ( [facility] ID Date Data Source [id number] 12/14/2020 02:07:00 PM EST [facility] ([facility] Name Value Range Interpretation Code Description Data Trina rce(s) Supporting Document(s) Ast/Sgot 15 U/L 7-37 Normal (applies to non-numeric resul ts) [facility] ([facility] Alt/SGPT 18 U/L 12-78 Normal (applies to non-numeric resul ts) [facility] ([facility] Alkaline Phosphatase 85 U/L 45-117 Normal (applies to non-num tammy results) [facility] ([facility] Bilirubin,Total 0.3 mg/dL 0.2-1.0 Normal (applies to non-numeric results) [facility] ([facility] Bilirubin,Direct 0.1 mg/dL 0.0-0.2 Normal (applies to non-numeric results) [facility] ([facility] Total Protein 7.1 GM/DL 6.4-8.2 Normal (applies to non-numeric re sults) [facility] ([facility] Albumin 3.5 GM/DL 3.2-5.2 Normal (applies to non-numeric resul ts) [facility] ([facility] Albumin/Globulin Ratio 1.0 Normal (applies to non-n umeric results) [facility] ([facility] ID Date Data Source [id number] 12/14/2020 02:07:00 PM EST [facility] ([facility] Name Value Range Interpretation Code Description Data Trina rce(s) Supporting Document(s) CPK Creatine Phosphokinase 71 U/L 39-308 Yulissa l (applies to non-numeric results) [facility] ([facility] ) CK-MB Value Mass 3.8 ng/mL Above high normal M EDENT ([facility] MB/CK Relative Index 5.35 Above high normal [facility] <content>DIAGNOSIS CRITERIA</content>
<content>MMB ng/ml Relative Index (RI)</content>
<content>NON-AMI < or = 5 N/A</content>
<content>ORTA ZONE > 5 < or = 4</content>
<content>AMI > 5 > 4</content>
<content></content> Troponin I Laboratory test result Normal (applies to non-n umeric results) [facility] ([facility] <content>Troponin I Reference Interval f or Siemens Oakes LOCI:</content>
<content></content>
<content>99th Percentile= 0.00-0.045 ng/ml</content>
<content></content>
<content>Risk Stratification:</content>
<content><= 0.10 ng/ml Decreased Risk for Adverse Clinical</content>
<content>Events.</content>
<content>0.10-1.50 ng/ml Increased Risk for Adverse Clinical</content>
<content>Events. Evaluation of additional</content>
<content>criterion and/or repeat testing in 2-6</content>
<content>hours is suggested to rule out myocardial</content>
<content>damage.</content>
<content>>= 1.50 ng/ml Indicative of Myocardial Injury.</content>
<content></content> ID Date Data Source [id number] 12/14/2020 02:07:00 PM EST [facility] ([facility] Name Value Range Interpretation Code Description Data Trina rce(s) Supporting Document(s) aPTT in Platelet poor plasma by Coagulation assay 32.9 s 24.2-38.5 Normal (applies to non-numeric results) [facility] ([facility] ID Date Data Source [id number] 12/14/2020 02:07:00 PM EST [facility] ([facility] Name Value Range Interpretation Code Description Data Trina rce(s) Supporting Document(s) Prothrombin Time 15.0 s 12.5-14.3 Above high normal M EDENT ([facility] Inr 1.15 Normal (applies to non-numeric resul ts) [facility] ([facility] THERAPUTIC HUMAN INR VALUES INDICATIONS NORMAL RANGES PROPHYLAXIS/TREATMENT OF: VENOUS THROMBOSIS 2.0-3.0 PULMONARY EMBOLISM 2.0-3.0 PREVENTION OF SYSTEMIC EMBOLISM FROM: TISSUE HEART VALVES 2.0-3.0 ACUTE MYOCARDIAL INFARCTION 2.0-3.0 VALVULAR HEART DISEASE 2.0-3.0 ATRIAL FIBRILLATION 2.0-3.0 MECHANICAL VALVES(HIGH RISK) 2.5-3.5 RECURRENT MYOCARDIAL INFARCTION 2.5-3.5 ID Date Data Source [id number] 12/14/2020 02:07:00 PM EST [facility] ([facility] Name Value Range Interpretation Code Description Data Trina rce(s) Supporting Document(s) White Blood Count 10.9 10 4.0-10.0 Above high normal [facility] ([facility] Red Blood Count 4.73 10 4.30-6.10 Normal (applies to non-numeric results) [facility] ([facility] Hemoglobin 10.6 g/dL 13.5-17.5 Below low normal [facility] ( [facility] Hematocrit 38.9 % 42.0-52.0 Below low normal [facility] ( [facility] Mean Corpuscular Volume 82.2 fl 80.0-96.0 Normal ( applies to non-numeric results) [facility] ([facility] ) Mean Corpuscular Hemoglobin 22.4 pg 27.0-33.0 Below low normal [facility] ([facility] Mean Corpuscular HGB Conc 27.2 g/dL 32.0-36.5 Below low normal [facility] ([facility] Red Cell Distribution Width 17.1 % 11.5-14.5 Above high normal [facility] ([facility] Platelet Count, Automated 325 10 150-450 Normal (applies to non-numeric results) [facility] ([facility] ) Lymph % 13.1 % 24.0-44.0 Below low normal [facility] ( [facility] Neutrophils % 74.9 % 36.0-66.0 Above high normal MEDE NT ([facility] [place] % 8.5 % 0.0-5.0 Above high normal [facility] ([facility] Baso % 0.3 % 0.0-1.0 Normal (applies to non-numeric resul ts) [facility] ([facility] Eos % 2.7 % 0.0-3.0 Normal (applies to non-numeric resul ts) [facility] ([facility] Nucleated Red Blood Cell % 0.0 % 0-0 Normal (applies to n on-numeric results) [facility] ([facility] Immature Granulocyte % 0.5 % 0-3.0 Normal (applies to non-n umeric results) [facility] ([facility] Neutrophils # 8.2 10 1.5-8.5 Normal (applies to non-numeric re sults) [facility] ([facility] Lymph # 1.4 10 1.5-5.0 Below low normal [facility] ( [facility] [place] # 0.9 10 0.0-0.8 Above high normal [facility] ([facility] Eos # 0.3 10 0.0-0.5 Normal (applies to non-numeric resul ts) [facility] ([facility] Baso # 0.0 10 0.0-0.2 Normal (applies to non-numeric resul ts) [facility] ([facility] ID Date Data Source [id number] 11/30/2020 02:11:00 PM EST [facility] ([facility] Name Value Range Interpretation Code Description Data Trina rce(s) Supporting Document(s) Hemoglobin A1c/Hemoglobin.total in Blood 7.6 % 4.50-6.20 Above high normal [facility] ([facility] ID Date Data Source [id number] 11/30/2020 01:40:00 PM EST [facility] ([facility] Name Value Range Interpretation Code Description Data Trina rce(s) Supporting Document(s) WBC 9.4 10E3/uL 4.1-10.9 [facility] ([facility] NORMAL RANGES Age WBC RBC [...] HCT IS 5% LESS SOURCE FOR DATA: [employer] 1800 OPERATION MANUAL( AUTOMATED BLOOD COUNTS AND [...] EXCLUSIVE. RBC 4.69 10E6/uL 4.20-6.30 ALAN ([facility] NORMAL RANGES Age WBC [...] HCT IS 5% LESS SOURCE FOR DATA: [employer] 1800 OPERATION MANUAL( AUTOMATED BLOOD COUNTS AND [...] HGB 10.7 g/dL 12.0-18.0 Below low normal [facility] ( [facility] NORMAL RANGES Age [...] HCT IS 5% LESS SOURCE FOR DATA: [employer] 1800 OPERATION MANUAL( AUTOMATED BLOOD COUNTS AND [...] 2-19 YEARS EXCLUSIVE. HCT 38.9 % 37.0-51.0 [facility] NORMAL [...] HCT IS 5% LESS SOURCE FOR DATA: [employer] DYN 1800 OPERATION MANUAL( AUTOMATED BLOOD COUNTS [...] HCT IS 5% LESS SOURCE FOR DATA: [employer] 1800 OPERATION MANUAL( AUTOMATED BLOOD COUNTS AND [...] MCH 22.8 pg 26.0-32.0 Below low normal [facility] ( [facility] NORMAL RANGES Age [...] HCT IS 5% LESS SOURCE FOR DATA: [employer] 1800 OPERATION MANUAL( AUTOMATED BLOOD COUNTS AND [...] 2-19 YEARS EXCLUSIVE. PLT 323 10E3/uL 140-440 [facility] ([facility] NORMAL RANGES Age WBC RBC [...] HCT IS 5% LESS SOURCE FOR DATA: [employer] 1800 OPERATION MANUAL( AUTOMATED BLOOD COUNTS AND [...] HCT IS 5% LESS SOURCE FOR DATA: [employer] 1800 OPERATION MANUAL( AUTOMATED BLOOD COUNTS AND [...] RDW-CV 16.0 % 11.5-14.5 Above high normal [facility] ([facility] NORMAL RANGES Age [...] HCT IS 5% LESS SOURCE FOR DATA: [employer] 1800 OPERATION MANUAL( AUTOMATED BLOOD COUNTS AND [...] 2-19 YEARS EXCLUSIVE. Lym% 17.3 % 10.0-58.5 [facility] ([facility] NORMAL [...] HCT IS 5% LESS SOURCE FOR DATA: [employer] 1800 OPERATION MANUAL( AUTOMATED BLOOD COUNTS AND [...] HCT IS 5% LESS SOURCE FOR DATA: [employer] 1800 OPERATION MANUAL( AUTOMATED BLOOD COUNTS AND [...] 2-19 YEARS EXCLUSIVE. MXD% 10.5 % 0.1-24.0 [facility] ([facility] NORMAL [...] HCT IS 5% LESS SOURCE FOR DATA: [employer] DYN 1800 OPERATION MANUAL( AUTOMATED BLOOD COUNTS [...] 2-19 YEARS EXCLUSIVE. Lym# 1.6 10E3/uL 0.6-4.1 [facility] ([facility] NORMAL RANGES Age WBC RBC [...] HCT IS 5% LESS SOURCE FOR DATA: [employer] 1800 OPERATION MANUAL( AUTOMATED BLOOD COUNTS AND [...] HCT IS 5% LESS SOURCE FOR DATA: [employer] 1800 OPERATION MANUAL( AUTOMATED BLOOD COUNTS AND [...] 2-19 YEARS EXCLUSIVE. MXD# 1.0 10E3/uL 0.0-1.8 [facility] ([facility] NORMAL RANGES Age WBC RBC [...] HCT IS 5% LESS SOURCE FOR DATA: [employer] 1800 OPERATION MANUAL( AUTOMATED BLOOD COUNTS AND [...] 2-19 YEARS EXCLUSIVE. MPV 11.2 fL 9.0-13.0 [facility] ([facility] NORMAL [...] HCT IS 5% LESS SOURCE FOR DATA: [employer] 1800 OPERATION MANUAL( AUTOMATED BLOOD COUNTS AND [...] 2-19 YEARS EXCLUSIVE. ID Date Data Source [id number] 11/30/2020 01:40:00 PM EST [facility] ([facility] Name Value Range Interpretation Code Description Data Trina rce(s) Supporting Document(s) Color Urine Laboratory test result M EDENT ([facility] Appearance of Urine Laboratory test result [facility] ([facility] Specific [place] Laboratory test result 1.00-1.03 [facility] ([facility] PH Urine Laboratory test result 5.0-8.0 ME DENT ([facility] Glucose Urine Laboratory test result [facility] ([facility] Bilirubin.total [Presence] in Urine by Test strip Laboratory test res ult [facility] ([facility] Protein Urine Laboratory test result [facility] ([facility] Ketones Laboratory test result [facility] ([facility] Blood Urine Laboratory test result M EDJENNIE ([facility] Leukocytes Laboratory test result ME DENT ([facility] Nitrite Laboratory test result [facility] ([facility] Urobilinogen Laboratory test result 0.2-1.0 [facility] ([facility] Comment 1 Laboratory test result ME DENT ([facility] ID Date Data Source [id number] 11/30/2020 01:40:00 PM EST [facility] ([facility] Name Value Range Interpretation Code Description Data Trina rce(s) Supporting Document(s) Chol 141 mg/dL 0-200 [facility] ([facility] NORMAL RANGES Age [...] HCT IS 5% LESS SOURCE FOR DATA: [employer] 1800 OPERATION MANUAL( AUTOMATED BLOOD COUNTS AND [...] 2-19 YEARS EXCLUSIVE. Trig 152 mg/dL 35-200 [facility] ([facility] NORMAL RANGES Age [...] HCT IS 5% LESS SOURCE FOR DATA: [employer] 1800 OPERATION MANUAL( AUTOMATED BLOOD COUNTS AND [...] in Serum or Plasma 49 mg/dL 35-55 [facility] ([facility] NORMAL RANGES [...] HCT IS 5% LESS SOURCE FOR DATA: [employer] 1800 OPERATION MANUAL( AUTOMATED BLOOD COUNTS AND [...] HCT IS 5% LESS SOURCE FOR DATA: [employer] 1800 OPERATION MANUAL( AUTOMATED BLOOD COUNTS AND [...] Cho/HDL Ratio 2.9 CALC ALAN ([facility] NORMAL RANGES Age WBC RBC HGB [...] HCT IS 5% LESS SOURCE FOR DATA: [employer] 1800 OPERATION MANUAL( AUTOMATED BLOOD COUNTS AND [...] 2-19 YEARS EXCLUSIVE. ID Date Data Source [id number] 11/30/2020 01:40:00 PM EST [facility] ([facility] Name Value Range Interpretation Code Description Data Trina rce(s) Supporting Document(s) Glu 118 mg/dL 70-110 Above high normal [facility] ([facility] NORMAL RANGES Age [...] HCT IS 5% LESS SOURCE FOR DATA: [employer] 1800 OPERATION MANUAL( AUTOMATED BLOOD COUNTS AND [...] 29 mg/dL 8-23 Above high normal [facility] ([facility] NORMAL RANGES Age [...] HCT IS 5% LESS SOURCE FOR DATA: [employer] 1800 OPERATION MANUAL( AUTOMATED BLOOD COUNTS AND [...] HCT IS 5% LESS SOURCE FOR DATA: [employer] DYN 1800 OPERATION MANUAL( AUTOMATED BLOOD COUNTS [...] YEARS EXCLUSIVE. BUN/Creatinine Ratio 44.2 CALC MED[facility] ([facility] NORMAL RANGES Age [...] HCT IS 5% LESS SOURCE FOR DATA: [employer] 1800 OPERATION MANUAL( AUTOMATED BLOOD COUNTS AND [...] HCT IS 5% LESS SOURCE FOR DATA: [employer] 1800 OPERATION MANUAL( AUTOMATED BLOOD COUNTS AND [...] 2-19 YEARS EXCLUSIVE. CL 99.1 mmol/L 98.0-107.0 [employer] ([facility] NORMAL RANGES Age WBC [...] HCT IS 5% LESS SOURCE FOR DATA: [employer] 1800 OPERATION MANUAL( AUTOMATED BLOOD COUNTS AND [...] 2-19 YEARS EXCLUSIVE. K 4.3 mmol/L 3.5-5.1 [facility] ([facility] NORMAL RANGES Age [...] HCT IS 5% LESS SOURCE FOR DATA: [employer] 1800 OPERATION MANUAL( AUTOMATED BLOOD COUNTS AND [...] Co2 31.4 mmol/L 22.0-29.0 Above high normal [facility] ([facility] NORMAL RANGES Age [...] HCT IS 5% LESS SOURCE FOR DATA: [employer] 1800 OPERATION MANUAL( AUTOMATED BLOOD COUNTS AND [...] 2-19 YEARS EXCLUSIVE. CA 9.0 mg/dL 8.6-10.2 [facility] ([facility] NORMAL [...] HCT IS 5% LESS SOURCE FOR DATA: [employer] 1800 OPERATION MANUAL( AUTOMATED BLOOD COUNTS AND [...] HCT IS 5% LESS SOURCE FOR DATA: [employer] 1800 OPERATION MANUAL( AUTOMATED BLOOD COUNTS AND [...] HCT IS 5% LESS SOURCE FOR DATA: [employer] 1800 OPERATION MANUAL( AUTOMATED BLOOD COUNTS AND [...] 2-19 YEARS EXCLUSIVE. Alb 4.0 g/dL 3.5-5.2 [facility] ([facility] NORMAL [...] HCT IS 5% LESS SOURCE FOR DATA: [employer] DYN 1800 OPERATION MANUAL( AUTOMATED BLOOD COUNTS [...] HCT IS 5% LESS SOURCE FOR DATA: [employer] 1800 OPERATION MANUAL( AUTOMATED BLOOD COUNTS AND [...] YEARS EXCLUSIVE. Alp 89.8 U/L 40-129 ALAN ([facility] NORMAL RANGES Age [...] HCT IS 5% LESS SOURCE FOR DATA: [employer] 1800 OPERATION MANUAL( AUTOMATED BLOOD COUNTS AND [...] YEARS EXCLUSIVE. Alt (SGPT) 7 U/L 0-41 [facility] ([facility] NORMAL [...] HCT IS 5% LESS SOURCE FOR DATA: [employer] 1800 OPERATION MANUAL( AUTOMATED BLOOD COUNTS AND [...] HCT IS 5% LESS SOURCE FOR DATA: [employer] 1800 OPERATION MANUAL( AUTOMATED BLOOD COUNTS AND [...] 2-19 YEARS EXCLUSIVE. Tbili 0.23 mg/dL 0.0-1.2 [facility] ([facility] NORMAL RANGES Age WBC [...] HCT IS 5% LESS SOURCE FOR DATA: [employer] 1800 OPERATION MANUAL( AUTOMATED BLOOD COUNTS AND [...] HCT IS 5% LESS SOURCE FOR DATA: [employer] 1800 OPERATION MANUAL( AUTOMATED BLOOD COUNTS AND [...] HCT IS 5% LESS SOURCE FOR DATA: [employer] 1800 OPERATION MANUAL( AUTOMATED BLOOD COUNTS AND [...] INDIVIDUALA AGED 2-19 YEARS EXCLUSIVE. eGFR Non-Afr. [place] Citizen 97 # [facility] ([facility] CKD-EPI eGFR 112 # [facility] ( [facility] CKD-EPI ID Date Data Source [id number] 11/30/2020 01:40:00 PM EST [facility] ([facility] Name Value Range Interpretation Code Description Data Trina rce(s) Supporting Document(s) Creatine kinase [Enzymatic activity/volume] in Serum or Plasma 57 U /L 39-308 [facility] ([facility] NORMAL RANGES Age WBC [...] HCT IS 5% LESS SOURCE FOR DATA: [employer]YN 1800 OPERATION MANUAL( AUTOMATED BLOOD COUNTS [...] 2-19 YEARS EXCLUSIVE. ID Date Data Source [id number] 08/26/2020 03:47:00 PM EDT [facility] ([facility] Name Value Range Interpretation Code Description Data Trina rce(s) Supporting Document(s) Color Urine Laboratory test result M EDJENNIE ([facility] Specific [place] 1.025 1.00-1.03 [facility] ([facility] Appearance of Urine Laboratory test result [facility] ([facility] PH Urine 7.0 5.0-8.0 [facility] ([facility] Glucose Urine Laboratory test result [facility] ([facility] Bilirubin.total [Presence] in Urine by Test strip Laboratory test res ult [facility] ([facility] Ketones Laboratory test result [facility] ([facility] Blood Urine Laboratory test result M EDENT ([facility] Nitrite Laboratory test result [facility] ([facility] Urobilinogen 0.2 EU/dl 0.2-1.0 [facility] ([facility] Protein Urine Laboratory test result [facility] ([facility] Leukocytes Laboratory test result ME DENT ([facility] ID Date Data Source [id number] 08/26/2020 03:47:00 PM EDT [facility] ([facility] Name Value Range Interpretation Code Description Data Trina rce(s) Supporting Document(s) Hemoglobin A1c/Hemoglobin.total in Blood 7.2 % 4.50-6.20 Above high normal [facility] ([facility] ID Date Data Source [id number] 08/26/2020 01:16:00 PM EDT MED[facility] ([facility] Name Value Range Interpretation Code Description Data Trina rce(s) Supporting Document(s) Chol 141 mg/dL 0-200 [facility] NORMAL RANGES Age [...] HCT IS 5% LESS SOURCE FOR DATA: [employer] 1800 OPERATION MANUAL( AUTOMATED BLOOD COUNTS AND [...] HCT IS 5% LESS SOURCE FOR DATA: [employer] 1800 OPERATION MANUAL( AUTOMATED BLOOD COUNTS AND [...] in Serum or Plasma 44 mg/dL 35-55 [facility] ([facility] NORMAL RANGES [...] HCT IS 5% LESS SOURCE FOR DATA: [employer] 1800 OPERATION MANUAL( AUTOMATED BLOOD COUNTS [...] 2-19 YEARS EXCLUSIVE. Cho/HDL Ratio 3.2 CALC [facility] ([facility] NORMAL RANGES [...] HCT IS 5% LESS SOURCE FOR DATA: [employer] 1800 OPERATION MANUAL( AUTOMATED BLOOD COUNTS AND [...] LDL_C 65 Calc 75-129 Below low normal [facility] ( [facility] NORMAL RANGES Age WBC [...] HCT IS 5% LESS SOURCE FOR DATA: [employer] 1800 OPERATION MANUAL( AUTOMATED BLOOD COUNTS AND [...] 2-19 YEARS EXCLUSIVE. ID Date Data Source [id number] 08/26/2020 01:16:00 PM EDT MEDENT ([facility] [...] HCT IS 5% LESS SOURCE FOR DATA: [employer] 1800 OPERATION MANUAL( AUTOMATED BLOOD COUNTS AND [...] HCT IS 5% LESS SOURCE FOR DATA: [employer] 1800 OPERATION MANUAL( AUTOMATED BLOOD COUNTS AND [...] 2-19 YEARS EXCLUSIVE. BUN/Creatinine Ratio 36.1 CALC [facility] ([facility] NORMAL RANGES Age WBC RBC [...] HCT IS 5% LESS SOURCE FOR DATA: [employer] 1800 OPERATION MANUAL( AUTOMATED BLOOD COUNTS AND [...] 2-19 YEARS EXCLUSIVE. Creat 0.7 mg/dL 0.7-1.2 [facility] NORMAL [...] HCT IS 5% LESS SOURCE FOR DATA: [employer] 1800 OPERATION MANUAL( AUTOMATED BLOOD COUNTS AND [...] HCT IS 5% LESS SOURCE FOR DATA: [employer] 1800 OPERATION MANUAL( AUTOMATED BLOOD COUNTS AND [...] 2-19 YEARS EXCLUSIVE. CL 99.1 mmol/L 98.0-107.0 [facility] NORMAL RANGES Age WBC [...] 2-19 YEARS EXCLUSIVE. K 4.4 mmol/L 3.5-5.1 [facility] ([facility] NORMAL [...] HCT IS 5% LESS SOURCE FOR DATA: [employer] 1800 OPERATION MANUAL( AUTOMATED BLOOD COUNTS AND [...] HCT IS 5% LESS SOURCE FOR DATA: [employer] 1800 OPERATION MANUAL( AUTOMATED BLOOD COUNTS AND [...] HCT IS 5% LESS SOURCE FOR DATA: [employer] DYN 1800 OPERATION MANUAL( AUTOMATED BLOOD COUNTS [...] 2-19 YEARS EXCLUSIVE. Alb 3.9 g/dL 3.5-5.2 [facility] ([facility] NORMAL [...] HCT IS 5% LESS SOURCE FOR DATA: [employer] 1800 OPERATION MANUAL( AUTOMATED BLOOD COUNTS AND [...] HCT IS 5% LESS SOURCE FOR DATA: [employer] 1800 OPERATION MANUAL( AUTOMATED BLOOD COUNTS AND [...] HCT IS 5% LESS SOURCE FOR DATA: [employer] 1800 OPERATION MANUAL( AUTOMATED BLOOD COUNTS [...] HCT IS 5% LESS SOURCE FOR DATA: [employer] 1800 OPERATION MANUAL( AUTOMATED BLOOD COUNTS AND [...] 2-19 YEARS EXCLUSIVE. Alp 80.8 U/L 40-129 [facility] NORMAL RANGES Age [...] HCT IS 5% LESS SOURCE FOR DATA: [employer] 1800 OPERATION MANUAL( AUTOMATED BLOOD COUNTS AND [...] YEARS EXCLUSIVE. Alt (SGPT) 9 U/L 0-41 [facility] NORMAL RANGES Age WBC [...] HCT IS 5% LESS SOURCE FOR DATA: [employer] 1800 OPERATION MANUAL( AUTOMATED BLOOD COUNTS AND [...] HCT IS 5% LESS SOURCE FOR DATA: [employer] 1800 OPERATION MANUAL( AUTOMATED BLOOD COUNTS AND [...] HCT IS 5% LESS SOURCE FOR DATA: [employer] 1800 OPERATION MANUAL( AUTOMATED BLOOD COUNTS AND [...] YEARS EXCLUSIVE. Ast (Sgot) 11 U/L 0-40 [facility] [facility] NORMAL RANGES Age WBC [...] HCT IS 5% LESS SOURCE FOR DATA: [employer] 1800 OPERATION MANUAL( AUTOMATED BLOOD COUNTS AND [...] HCT IS 5% LESS SOURCE FOR DATA: [employer] 1800 OPERATION MANUAL( AUTOMATED BLOOD COUNTS AND [...] YEARS EXCLUSIVE. eGFR 106 # MEDJENNIE ( [facility] CKD-EPI eGFR Non-Afr. [place] Citizen 92 # MEDJENNIE ([facility] CKD-EPI ID Date Data Source [id number] 08/26/2020 01:16:00 PM EDT MEDJENNIE ([facility] Name Value Range Interpretation Code Description Data Trina rce(s) Supporting Document(s) Creatine kinase [Enzymatic activity/volume] in Serum or Plasma 70 U /L 39-308 MEDJENNIE ([facility] NORMAL RANGES Age [...] HCT IS 5% LESS SOURCE FOR DATA: [employer] 1800 OPERATION MANUAL( AUTOMATED BLOOD COUNTS AND [...] 2-19 YEARS EXCLUSIVE. ID Date Data Source [id number] 08/26/2020 01:16:00 PM EDT MEDENT ([facility] Name Value Range Interpretation Code Description Data Trina rce(s) Supporting Document(s) WBC 8.6 10E3/uL 4.1-10.9 MEDENT ([facility] NORMAL RANGES Age WBC RBC [...] HCT IS 5% LESS SOURCE FOR DATA: [employer] 1800 OPERATION MANUAL( AUTOMATED BLOOD COUNTS AND [...] YEARS EXCLUSIVE. RBC 4.49 10E6/uL 4.20-6.30 ALAN ([facility] NORMAL RANGES Age WBC [...] HCT IS 5% LESS SOURCE FOR DATA: [employer] 1800 OPERATION MANUAL( AUTOMATED BLOOD COUNTS AND [...] 2-19 YEARS EXCLUSIVE. HCT 38.7 % 37.0-51.0 [facility] ([facility] NORMAL RANGES [...] HCT IS 5% LESS SOURCE FOR DATA: [employer] 1800 OPERATION MANUAL( AUTOMATED BLOOD COUNTS AND [...] HCT IS 5% LESS SOURCE FOR DATA: [employer] 1800 OPERATION MANUAL( AUTOMATED BLOOD COUNTS AND [...] 2-19 YEARS EXCLUSIVE. MCV 86.2 fL 80.0-97.0 [facility] ([facility] NORMAL RANGES Age [...] HCT IS 5% LESS SOURCE FOR DATA: [employer] 1800 OPERATION MANUAL( AUTOMATED BLOOD COUNTS AND [...] 2-19 YEARS EXCLUSIVE. MCH 26.1 pg 26.0-32.0 [facility] ([facility] NORMAL RANGES [...] HCT IS 5% LESS SOURCE FOR DATA: [employer] 1800 OPERATION MANUAL( AUTOMATED BLOOD COUNTS AND [...] YEARS EXCLUSIVE. PLT 303 10E3/uL 140-440 MEDENT ([facility] NORMAL RANGES Age WBC RBC [...] HCT IS 5% LESS SOURCE FOR DATA: [employer] 1800 OPERATION MANUAL( AUTOMATED BLOOD COUNTS AND [...] MCHC 30.2 g/dL 31.0-36.0 Below low normal [facility] ( [facility] NORMAL [...] HCT IS 5% LESS SOURCE FOR DATA: [employer]YN 1800 OPERATION MANUAL( AUTOMATED BLOOD COUNTS [...] HCT IS 5% LESS SOURCE FOR DATA: [employer] 1800 OPERATION MANUAL( AUTOMATED BLOOD COUNTS AND [...] HCT IS 5% LESS SOURCE FOR DATA: [employer] 1800 OPERATION MANUAL( AUTOMATED BLOOD COUNTS AND [...] 2-19 YEARS EXCLUSIVE. Neut% 71.8 % 37.0-92.0 [facility] ([facility] NORMAL [...] HCT IS 5% LESS SOURCE FOR DATA: [employer] DYN 1800 OPERATION MANUAL( AUTOMATED BLOOD COUNTS [...] HCT IS 5% LESS SOURCE FOR DATA: [employer] 1800 OPERATION MANUAL( AUTOMATED BLOOD COUNTS AND [...] HCT IS 5% LESS SOURCE FOR DATA: [employer] DYN 1800 OPERATION MANUAL( AUTOMATED BLOOD COUNTS [...] 2-19 YEARS EXCLUSIVE. Neut# 6.2 % 2.0-7.8 [facility] ([facility] NORMAL RANGES [...] HCT IS 5% LESS SOURCE FOR DATA: [employer] 1800 OPERATION MANUAL( AUTOMATED BLOOD COUNTS AND [...] 2-19 YEARS EXCLUSIVE. MXD# 0.9 10E3/uL 0.0-1.8 [facility] ([facility] NORMAL RANGES Age WBC RBC [...] HCT IS 5% LESS SOURCE FOR DATA: [employer] 1800 OPERATION MANUAL( AUTOMATED BLOOD COUNTS AND [...] HCT IS 5% LESS SOURCE FOR DATA: [employer] 1800 OPERATION MANUAL( AUTOMATED BLOOD COUNTS AND [...] a former smoker MEDENT ([facility]) Smoking 07/21/2021 12:00:00 AM EDT Patient is a former smoker completed Patient is a former smoker MEDENT ([facility] Smoking 07/01/2021 12:00:00 AM EDT Quit completed Quit MEDENT ([facility], [facility]) Smoking 05/05/2021 01:11:15 PM EDT Ex-smoker (finding) [facility] ed Ex-smoker (finding) PAUL (Bacilio Augustine MD [facility]) Smoking 04/13/2021 12:00:00 AM EDT - 11/12/2013 12:00:00 AM EST Patient is a former smoker completed Patient is a former smoker MEDENT ([facility] Alcohol intake 09/11/2020 12:00:00 AM EDT No completed [facility] Smoking 09/11/2020 12:00:00 AM EDT Former smoker completed Former smoker [facility] Vital Signs ID Date Data Source UNK Name Value Range Interpretation Code Description Data Source(s) Body temperature 97.7 [degF] 97.7 [degF] MEDENT ([facility] Body weight 205.00 [lb_av] 205.00 [lb_av] MEDEN T ([facility] Deming body weight 148 [lb_av] 148 [lb_av] MEDEN T ([facility] Body mass index (BMI) [Ratio] 32.1 kg/m2 32.1 k g/m2 MEDENT ([facility] Heart rate 82 /min 82 /min MEDENT ([facility] Respiratory rate 20 /min 20 /min MEDENT ( [facility] Body height 67 [in_i] 67 [in_i] MEDENT ([facility] 5'7" Oxygen saturation in Arterial blood by Pulse oximetry 92 % 92 % MEDENT ([facility] (On O2 @ 3 LPM NC) Systolic blood pressure 116 mm[Hg] 116 mm[Hg] M EDENT ([facility] Diastolic blood pressure 78 mm[Hg] 78 mm[Hg] MEDENT ([facility] Systolic blood pressure 139 mm[Hg] 139 mm[Hg] M EDENT ([facility]) Diastolic blood pressure 89 mm[Hg] 89 mm[Hg] MEDENT ([facility]) Heart rate 79 /min 79 /min MEDENT ([facility]) Body temperature 98.3 [degF] 98.3 [degF] MEDENT ([facility]) Respiratory rate 16 /min 16 /min MEDENT ( [facility]) Oxygen saturation in Arterial blood by Pulse oximetry 96 % 96 % MEDENT ([facility]) on 3L O2 Systolic blood pressure 112 mm[Hg] 112 mm[Hg] M EDENT ([facility]) Diastolic blood pressure 70 mm[Hg] 70 mm[Hg] MEDENT ([facility]) Body temperature 96.5 [degF] 96.5 [degF] MEDENT ([facility]) Body temperature 98.6 [degF] 98.6 [degF] MEDENT ([facility]) Heart rate 80 /min 80 /min MEDENT ([facility]) Oxygen saturation in Arterial blood by Pulse oximetry 85 % 85 % MEDENT ([facility]) with potable O2 on Respiratory rate 18 /min 18 /min MEDENT ( [facility]) Body weight 206.00 [lb_av] 206.00 [lb_av] MEDEN T ([facility]) Body weight 93.442 kg 93.442 kg MEDENT ([facility]) Body height 70 [in_i] 70 [in_i] MEDENT ([facility]) 5'10" Body mass index (BMI) [Ratio] 29.6 kg/m2 29.6 k g/m2 MEDENT ([facility]) Body surface area Derived from formula 2.11 m2 2.11 m2 MEDENT ([facility]) Systolic blood pressure 130 mm[Hg] 130 mm[Hg] M EDENT ([facility]) Diastolic blood pressure 62 mm[Hg] 62 mm[Hg] MEDENT ([facility]) Body height 68 [in_i] 68 [in_i] MEDENT ([facility] ) 5'8" Body mass index (BMI) [Ratio] 31.3 kg/m2 31.3 k g/m2 MEDENT ([facility] ) Body temperature 96.9 [degF] 96.9 [degF] MEDENT ([facility] ) Body weight 206.00 [lb_av] 206.00 [lb_av] MEDEN T ([facility] ) Body temperature 97.6 [degF] 97.6 [degF] MEDENT ([facility] Diastolic blood pressure 60 mm[Hg] 60 mm[Hg] MEDENT ([facility] Body height 67 [in_i] 67 [in_i] MEDENT ([facility] 5'7" Heart rate 88 /min 88 /min MEDENT ([facility] Respiratory rate 20 /min 20 /min MEDENT ( [facility] Body weight 206.00 [lb_av] 206.00 [lb_av] MEDEN T ([facility] Deming body weight 148 [lb_av] 148 [lb_av] MEDEN T ([facility] Body mass index (BMI) [Ratio] 32.3 kg/m2 32.3 k g/m2 MEDENT ([facility] Systolic blood pressure 110 mm[Hg] 110 mm[Hg] M EDENT ([facility] Oxygen saturation in Arterial blood by Pulse oximetry 94 % 94 % MEDENT ([facility] (On O2 @ 3 LPM NC) Systolic blood pressure 118 mm[Hg] 118 mm[Hg] M EDENT ([facility] Diastolic blood pressure 80 mm[Hg] 80 mm[Hg] MEDENT ([facility] Body temperature 97.3 [degF] 97.3 [degF] MEDENT ([facility] Heart rate 87 /min 87 /min MEDENT ([facility] Respiratory rate 20 /min 20 /min MEDENT ( [facility] Oxygen saturation in Arterial blood by Pulse oximetry 94 % 94 % MEDENT ([facility] (On O2 @ 3LPM [place]) Systolic blood pressure 100 mm[Hg] 100 mm[Hg] M EDENT ([facility], [facility]) Diastolic blood pressure 60 mm[Hg] 60 mm[Hg] MEDENT ([facility], [facility]) Heart rate 88 /min 88 /min MEDENT ([facility], [facility]) Respiratory rate 17 /min 17 /min MEDENT ( [facility], [facility]) Oxygen saturation in Arterial blood by Pulse oximetry 94 % 94 % MEDENT ([facility], [facility]) Body temperature 97.6 [degF] 97.6 [degF] MEDENT ([facility], [facility]) Body weight 206.00 [lb_av] 206.00 [lb_av] MEDEN T ([facility], [facility]) Body height 71 [in_i] 71 [in_i] MEDENT ([facility], [facility]) 5'11" Body mass index (BMI) [Ratio] 28.7 kg/m2 28.7 k g/m2 MEDENT ([facility], [facility]) Body height 67 [in_i] 67 [in_i] MEDENT ([facility] 5'7" Body weight 206.00 [lb_av] 206.00 [lb_av] MEDEN T ([facility] Deming body weight 148 [lb_av] 148 [lb_av] MEDEN T ([facility] Body mass index (BMI) [Ratio] 32.3 kg/m2 32.3 k g/m2 MEDENT ([facility] Systolic blood [...] Body height 67 [in_i] 67 [in_i] MEDENT ([facility] 5'7" Body weight 203.00 [lb_av] 203.00 [lb_av] MEDEN T ([facility] home scales Deming body weight 148 [lb_av] 148 [lb_av] MEDEN T ([facility] Body mass index (BMI) [Ratio] 31.8 kg/m2 31.8 k g/m2 MEDENT ([facility] Oxygen saturation in Arterial blood by [facility]ulse oximetry 94 % 94 % [facility] ([facility] Diastolic blood pressure 70 mm[Hg] 70 mm[Hg] [facility] ([facility]) Systolic blood pressure 120 mm[Hg] 120 mm[Hg] M EDENT ([facility]) Heart rate 100 /min 100 /min [facility] ([facility]) Oxygen saturation in Arterial blood by Pulse oximetry 923 % 923 % [facility] ([facility]) Body height 68 [in_i] 68 [in_i] [facility] ([facility]) 5'8" Body weight 204.00 [lb_av] 204.00 [lb_av] MEDEN T ([facility]) Body mass index (BMI) [Ratio] 31.0 kg/m2 31.0 k g/m2 [facility] ([facility]) Deming body weight 154 [lb_av] 154 [lb_av] MEDEN T ([facility]) Body weight 92.534 kg 92.534 kg [facility] ([facility]) Body surface area Derived from formula 2.06 m2 2.06 m2 [facility] ([facility]) Body temperature 97.7 [degF] 97.7 [degF] [facility] Systolic blood pressure 128 mm[Hg] 128 mm[Hg] M EDENT ([facility] Diastolic blood pressure 86 mm[Hg] 86 mm[Hg] MEDENT ([facility] Heart rate 84 /min 84 /min MEDENT ([facility] Respiratory rate 18 /min 18 /min MEDENT ( [facility] Body height 67 [in_i] 67 [in_i] MEDENT ([facility] 5'7" Body weight 203.00 [lb_av] 203.00 [lb_av] MEDEN T ([facility] Deming body weight 148 [lb_av] 148 [lb_av] MEDEN T ([facility] Body mass index (BMI) [Ratio] 31.8 kg/m2 31.8 k g/m2 MEDENT ([facility] Oxygen saturation in Arterial blood by Pulse oximetry 96 % 96 % MEDENT ([facility] (On O2 @ 3 LPM NC) Heart rate 100 /min 100 /min MEDENT ([facility] Systolic blood pressure 130 mm[Hg] 130 mm[Hg] M EDENT ([facility] Diastolic blood pressure 70 mm[Hg] 70 mm[Hg] MEDENT ([facility] Body temperature 97.8 [degF] 97.8 [degF] MEDENT ([facility] Respiratory rate 18 /min 18 /min MEDENT ( [facility] Body height 67 [in_i] 67 [in_i] MEDENT ([facility] 5'7" Deming body weight 148 [lb_av] 148 [lb_av] MEDEN [...] Body height 67 [in_i] 67 [in_i] MEDENT ([facility] 5'7" Body weight 207.00 [lb_av] 207.00 [lb_av] MEDEN T ([facility] Deming body weight 148 [lb_av] 148 [lb_av] MEDEN T ([facility] Body mass index (BMI) [Ratio] 32.4 kg/m2 32.4 k g/m2 [facility] ([facility] Oxygen saturation in Arterial blood by Pulse oximetry 91 % 91 % [facility] ([facility] with O2 @3L via nasal cannula Systolic blood pressure 130 mm[Hg] 130 mm[Hg] [facility] ([facility], ) Diastolic blood pressure 78 mm[Hg] 78 mm[Hg] [facility] ([facility]) Heart rate 101 /min 101 /min [facility] ([facility]) Oxygen saturation in Arterial blood by Pulse oximetry 883 % 883 % [facility] ([facility]) Body height 68 [in_i] 68 [in_i] [facility] ([facility]) 5'8" Body weight 207.00 [lb_av] 207.00 [lb_av] [facility] Body mass index (BMI) [Ratio] 31.5 kg/m2 31.5 k g/m2 [facility] ([facility]) Deming body weight 154 [lb_av] 154 [lb_av] [facility] ([facility]) Body weight 93.895 kg 93.895 kg [facility] ([facility]) Body surface area Derived from formula 2.07 m2 2.07 m2 [facility] ([facility]) Heart rate 84 /min 84 /min [facility] Respiratory rate 16 /min 16 /min [facility] Body height 177.8 cm 177.8 cm [facility] Body weight 93.895 kg 93.895 kg [facility] Body mass index (BMI) [Ratio] 29.70 kg/m2 29.70 kg/m2 [facility] Oxygen saturation in Arterial blood by Pulse oximetry 93 % 93 % [facility] Diastolic blood pressure 88 mm[Hg] 88 mm[Hg] [facility] ([facility]) Body weight 93.895 kg 93.895 kg MEDENT ([facility]) Body mass index (BMI) [Ratio] 29.7 kg/m2 29.7 k g/m2 MEDENT ([facility]) Body height 70 [in_i] 70 [in_i] MEDENT ([facility] 5'10" Body weight 207.00 [lb_av] 207.00 [lb_av] MEDEN T ([facility]) Systolic blood pressure 150 mm[Hg] 150 mm[Hg] M EDENT ([facility]) Systolic blood pressure 150 mm[Hg] 150 mm[Hg] M EDENT ([facility]) Diastolic blood pressure 88 mm[Hg] 88 mm[Hg] MEDENT ([facility]) Systolic blood pressure 136 mm[Hg] 136 mm[Hg] M EDENT ([facility] Diastolic blood pressure 78 mm[Hg] 78 mm[Hg] MEDENT ([facility] Body temperature 98.2 [degF] 98.2 [degF] MEDENT ([facility] Heart rate 88 /min 88 /min MEDENT ([facility] Respiratory rate 18 /min 18 /min MEDENT ( [facility] Body height 67 [in_i] 67 [in_i] MEDENT ([facility] 5'7" Body weight 206.00 [lb_av] 206.00 [lb_av] MEDEN T ([facility] Deming body weight 148 [lb_av] 148 [lb_av] MEDEN T ([facility] Body mass index (BMI) [Ratio] 32.3 kg/m2 32.3 k g/m2 MEDENT ([facility] Oxygen saturation in Arterial blood by Pulse oximetry 95 % 95 % MEDENT ([facility]
[2021-09-22 18:34] LABS: ABG PARTIAL PRESSURE CO2 68.3 mmHg (35.0-45.0)
[2021-09-22] MEDS ORDERED: FERR324T21 PO (18:56)
[2021-09-22 20:00] VITALS: BP 132/63
--- NOTE | 2021-09-23 07:54 | ECGEPIP ---
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
--- NOTE | 2021-09-27 19:30 | ED PDOC ---
Post-Departure Follow-Up radiology report faxed to Estefany Peterson MD Sep 27, 2021 19:30
== END 2021-09-22 21:20 | disposition home or self-care (01) ==
LOC: M ED 16:40
DX: R60.9 Edema, unspecified (principal); I51.9 Heart disease, unspecified; E11.9 Type 2 diabetes mellitus without complications; I10 Essential (primary) hypertension; Z87.891 Personal history of nicotine dependence; Z79.82 Long term (current) use of aspirin; Z79.84 Long term (current) use of oral hypoglycemic drugs; Z79.899 Other long term (current) drug therapy; Z88.8 Allergy status to other drugs, medicaments and biological substances
CPT/HCPCS: 11042; 36600; 71045; 80048; 80076; 82550; 82553; 82803; 83880; 84484; 85025; 85610; 93005; 93041; 96374; 97597; 99285; G0463; J1940

== ENCOUNTER 2022-01-04 18:27 | Inpatient (IN) | payer MEDICARE ==
[~2022-01-04] VITALS: Ht 177.8 cm; Wt 92.3 kg
[~2022-01-04 18:27] MED LIST changes: +FERR324T21 PO; +LOSA100T45 PO; -LOSA100T50 PO
[2022-01-04] MEDS ORDERED: ELIQ5TAB (18:54)
[2022-01-04] MEDS ORDERED: SYMB16INH (18:54)
[2022-01-04] MEDS ORDERED: COMBIVENT RESPIMAT 100-20MCG INHALER 4GM INH ONE (19:25)
[2022-01-04 20:08] LABS: ABG BASE EXCESS 10.4 (-2.0-2.0); ABG HCO3 41.5 MEQ/L (22.0-26.0); ABG O2 SATURATION 96.1 % (95.0-99.0); ABG PARTIAL PRESSURE O2 92.6 mmHg (75.0-100.0); ABG STANDARD HCO3 34.2 MEQ/L (22.0-26.0); ABG TOTAL CO2 44.5 MEQ/L (23.0-31.0)
[2022-01-04 20:10] LABS: ABG PARTIAL PRESSURE CO2 98.6 mmHg (35.0-45.0); ABG pH (ARTERIAL) 7.242 UNITS (7.350-7.450)
[2022-01-04 20:34] LABS: BASO % 0.3 % (0.0-1.0); EOS # 0.1 10^3/uL (0.0-0.5); EOS % 0.5 % (0.0-3.0); HEMATOCRIT 43.4 % (42.0-52.0); HEMOGLOBIN 11.7 g/dl (13.5-17.5); LYMPH # 0.7 10^3/uL (1.5-5.0); LYMPH % 7.7 % (24.0-44.0); MEAN CORPUSCULAR HEMOGLOBIN 25.9 pg (27.0-33.0); MEAN CORPUSCULAR VOLUME 96.2 fl (80.0-96.0); MONO # 0.3 10^3/uL (0.0-0.8); MONO % 3.6 % (2.0-8.0); NEUTROPHILS # 8.2 10^3/uL (1.5-8.5); NEUTROPHILS % 87.4 % (36.0-66.0); PLATELET COUNT, AUTOMATED 268 10^3/uL (150-450); RED BLOOD COUNT 4.51 10^6/uL (4.30-6.10); WHITE BLOOD COUNT 9.4 10^3/uL (4.0-10.0)
[2022-01-04 21:03] LABS: ALT/SGPT 16 U/L (12-78); BILIRUBIN,DIRECT 0.1 MG/DL (0.0-0.2); BILIRUBIN,TOTAL 0.2 MG/DL (0.2-1.0); BLOOD UREA NITROGEN 21 MG/DL (7-18); CALCIUM LEVEL 8.4 MG/DL (8.8-10.2); CARBON DIOXIDE LEVEL 39 MEQ/L (21-32); CHLORIDE LEVEL 100 MEQ/L (98-107); CREATININE FOR GFR 0.51 MG/DL (0.70-1.30); FREE T4 0.98 NG/DL (0.76-1.46); GLOMERULAR FILTRATION RATE > 60.0 (>42); GLUCOSE, FASTING 145 MG/DL (70-100); NT-PRO BNP 175 PG/ML (<450); POTASSIUM SERUM 4.6 MEQ/L (3.5-5.1); SODIUM LEVEL 140 MEQ/L (136-145); TOTAL PROTEIN 6.7 GM/DL (6.4-8.2)
[2022-01-04] MEDS ORDERED: PRAV20TA2 PO (22:15)
[2022-01-04] MEDS ORDERED: FERR32TA PO (22:15)
[2022-01-04] MEDS ORDERED: ELIQ5TAB PO (22:15)
[2022-01-04] MEDS ORDERED: DULE200A INH (22:18)
[2022-01-04] MEDS ORDERED: HOME MED LIST COMPLETE! XX SCH (22:20)
[2022-01-05] VITALS (19 sets, daily range): BP systolic 97–136; BP diastolic 54–85
[2022-01-05] MEDS ORDERED: ALBUTEROL SULFATE 2.5 MG/0.5 ML INH NEB SOLN NEB PRN (00:10)
[2022-01-05] MEDS ORDERED: methylPREDNISolone 40MG 1ML VIAL IV SCH (01:00)
[2022-01-05 02:16] LABS: VENOUS BASE EXCESS 9.3 (-2.0-2.0); VENOUS HCO3 37.9 MEQ/L (23.0-27.0); VENOUS O2 SATURATION 97.1 % (60.0-80.0); VENOUS PARTIAL PRESSURE CO2 74.2 mmHg (38.0-50.0); VENOUS PARTIAL PRESSURE O2 94.3 mmHg (30.0-50.0); VENOUS PH 7.326 UNITS (7.330-7.430); VENOUS TOTAL CO2 40.2 MEQ/L (24.0-28.0)
[2022-01-05] MEDS: cefTRIAXone SOD 1 GM in D5W MINI-BAG PLUS 50 ML IV SCH ×2 (04:00→04:01)
[2022-01-05] MEDS: methylPREDNISolone 40MG 1ML VIAL IV SCH ×4 (04:01→21:10)
[2022-01-05] MEDS: AZITHROMYCIN INJ 500 MG, VIAL MATE ADAPTER 1 EACH in NS 250 ML IV SCH (04:12)
[2022-01-05 04:57] LABS: BASO % 0.2 % (0.0-1.0); HEMATOCRIT 40.4 % (42.0-52.0); LYMPH # 0.5 10^3/uL (1.5-5.0); LYMPH % 8.6 % (24.0-44.0); MEAN CORPUSCULAR HEMOGLOBIN 25.9 pg (27.0-33.0); MEAN CORPUSCULAR HGB CONC 27.2 g/dl (32.0-36.5); MEAN CORPUSCULAR VOLUME 95.1 fl (80.0-96.0); MONO # 0.1 10^3/uL (0.0-0.8); MONO % 1.6 % (2.0-8.0); NEUTROPHILS # 5.5 10^3/uL (1.5-8.5); NEUTROPHILS % 89.3 % (36.0-66.0); PLATELET COUNT, AUTOMATED 236 10^3/uL (150-450); RED BLOOD COUNT 4.25 10^6/uL (4.30-6.10); WHITE BLOOD COUNT 6.2 10^3/uL (4.0-10.0)
[2022-01-05] MEDS: NS 1,000 ML IV SCH ×2 (05:00→21:09)
[2022-01-05 05:23] LABS: BLOOD UREA NITROGEN 21 MG/DL (7-18); CALCIUM LEVEL 8.1 MG/DL (8.8-10.2); CARBON DIOXIDE LEVEL 39 MEQ/L (21-32); CHLORIDE LEVEL 101 MEQ/L (98-107); CREATININE FOR GFR 0.47 MG/DL (0.70-1.30); GLOMERULAR FILTRATION RATE > 60.0 (>42); GLUCOSE, FASTING 234 MG/DL (70-100); POTASSIUM SERUM 4.7 MEQ/L (3.5-5.1); SODIUM LEVEL 141 MEQ/L (136-145)
[2022-01-05 06:20] LABS: ABG pH (ARTERIAL) 7.258 UNITS (7.350-7.450)
[2022-01-05 06:21] LABS: ABG BASE EXCESS 10.8 (-2.0-2.0); ABG HCO3 41.5 MEQ/L (22.0-26.0); ABG O2 SATURATION 96.1 % (95.0-99.0); ABG PARTIAL PRESSURE O2 89.8 mmHg (75.0-100.0); ABG STANDARD HCO3 34.6 MEQ/L (22.0-26.0); ABG TOTAL CO2 44.4 MEQ/L (23.0-31.0)
[2022-01-05 06:26] LABS: ABG PARTIAL PRESSURE CO2 95.1 mmHg (35.0-45.0)
[2022-01-05] MEDS: IPRATROPIUM 0.5MG/ALBUTEROL 2.5MG INH SOL UD 3ML (DUONEB) NEB SCH ×4 (08:30→19:38)
[2022-01-05] MEDS: PANTOPRAZOLE 40MG TAB (PROTONIX) PO SCH (09:00)
[2022-01-05] MEDS: PRAVASTATIN 20 MG TAB PO SCH (09:00)
[2022-01-05] MEDS ORDERED: HEPARIN SOD (PORCINE) 5000UNITS/ML 1ML VIAL/SYRINGE SC SCH (09:00)
[2022-01-05] MEDS: ASPIRIN 81MG ENTERIC TABLET PO SCH (09:00)
[2022-01-05] MEDS: SPIRONOLACTONE 12.5MG PER 1/2 TABLET PO SCH (09:00)
[2022-01-05] MEDS: FERROUS GLUCONATE 324 MG TAB PO SCH (09:00)
[2022-01-05] MEDS ORDERED: SITagliptin 50 MG TAB (JANUVIA) PO SCH (09:00)
[2022-01-05] MEDS: APIXABAN 5 MG TAB (ELIQUIS) PO SCH ×2 (09:00→21:11)
[2022-01-05 09:38] LABS: ABG BASE EXCESS 8.9 (-2.0-2.0); ABG O2 SATURATION 98.6 % (95.0-99.0); ABG PARTIAL PRESSURE O2 134.6 mmHg (75.0-100.0); ABG STANDARD HCO3 32.8 MEQ/L (22.0-26.0); ABG TOTAL CO2 39.1 MEQ/L (23.0-31.0); ABG pH (ARTERIAL) 7.346 UNITS (7.350-7.450)
[2022-01-05] MEDS ORDERED: ENOXAPARIN 100MG/1ML SYRINGE (J1650 PER 10MG) SC SCH ×2 (09:40→13:00)
[2022-01-05 09:43] LABS: ABG PARTIAL PRESSURE CO2 69.1 mmHg (35.0-45.0)
[2022-01-05] MEDS ORDERED: GLUCAGON INJ 1MG VIAL SC PRN (10:00)
[2022-01-05] MEDS ORDERED: DEXTROSE 50% 50 ML SYRINGE IV PRN (10:00)
[2022-01-05] MEDS ORDERED: GLUCOSE 4GM CHEW TABLET PO PRN (10:00)
[2022-01-05] MEDS ORDERED: MIRALAX *UNIT DOSE* 17GM PACKET PO PRN (11:35)
[2022-01-05] MEDS ORDERED: SENNA 8.6 MG TAB (SENOKOT) PO PRN (11:35)
[2022-01-05] MEDS: DOCUSATE SODIUM 100MG CAPSULE PO SCH ×2 (11:55→21:10)
[2022-01-05] MEDS: HumaLOG INSULIN (NovoLOG) PER UNIT SC SCH ×3 (12:00→21:00)
[2022-01-05 13:17] LABS: CREATININE FOR GFR 0.39 MG/DL (0.70-1.30); GLOMERULAR FILTRATION RATE > 60.0 (>42)
[2022-01-05 14:21] LABS: ABG BASE EXCESS 11.7 (-2.0-2.0); ABG HCO3 36.9 MEQ/L (22.0-26.0); ABG O2 SATURATION 98.6 % (95.0-99.0); ABG PARTIAL PRESSURE CO2 52.4 mmHg (35.0-45.0); ABG PARTIAL PRESSURE O2 105.3 mmHg (75.0-100.0); ABG STANDARD HCO3 35.4 MEQ/L (22.0-26.0); ABG TOTAL CO2 38.5 MEQ/L (23.0-31.0); ABG pH (ARTERIAL) 7.465 UNITS (7.350-7.450)
[2022-01-05] MEDS: LATANOPROST 0.005% OPHTH SOLN 2.5 ML OU SCH (21:10)
[2022-01-06] VITALS (13 sets, daily range): BP systolic 109–152; BP diastolic 50–78
[2022-01-06] MEDS: methylPREDNISolone 40MG 1ML VIAL IV SCH ×2 (03:30→09:15)
[2022-01-06] MEDS: AZITHROMYCIN INJ 500 MG, VIAL MATE ADAPTER 1 EACH in NS 250 ML IV SCH (03:30)
[2022-01-06 06:58] LABS: ABG BASE EXCESS 11.1 (-2.0-2.0); ABG O2 SATURATION 90.4 % (95.0-99.0); ABG PARTIAL PRESSURE CO2 55.2 mmHg (35.0-45.0); ABG PARTIAL PRESSURE O2 57.5 mmHg (75.0-100.0); ABG STANDARD HCO3 34.7 MEQ/L (22.0-26.0); ABG TOTAL CO2 38.7 MEQ/L (23.0-31.0); ABG pH (ARTERIAL) 7.444 UNITS (7.350-7.450)
[2022-01-06 07:15] LABS: HEMATOCRIT 39.5 % (42.0-52.0); LYMPH # 0.6 10^3/uL (1.5-5.0); LYMPH % 7.8 % (24.0-44.0); MEAN CORPUSCULAR HEMOGLOBIN 26.1 pg (27.0-33.0); MEAN CORPUSCULAR HGB CONC 27.8 g/dl (32.0-36.5); MEAN CORPUSCULAR VOLUME 93.8 fl (80.0-96.0); MONO # 0.3 10^3/uL (0.0-0.8); MONO % 4.1 % (2.0-8.0); NEUTROPHILS # 6.2 10^3/uL (1.5-8.5); NEUTROPHILS % 87.7 % (36.0-66.0); PLATELET COUNT, AUTOMATED 272 10^3/uL (150-450); RED BLOOD COUNT 4.21 10^6/uL (4.30-6.10)
[2022-01-06] MEDS: HumaLOG INSULIN (NovoLOG) PER UNIT SC SCH ×4 (07:37→21:32)
[2022-01-06 07:47] LABS: BLOOD UREA NITROGEN 27 MG/DL (7-18); CALCIUM LEVEL 8.5 MG/DL (8.8-10.2); CARBON DIOXIDE LEVEL 39 MEQ/L (21-32); CHLORIDE LEVEL 102 MEQ/L (98-107); GLOMERULAR FILTRATION RATE > 60.0 (>42); GLUCOSE, FASTING 187 MG/DL (70-100); POTASSIUM SERUM 4.9 MEQ/L (3.5-5.1); SODIUM LEVEL 141 MEQ/L (136-145)
[2022-01-06] MEDS: IPRATROPIUM 0.5MG/ALBUTEROL 2.5MG INH SOL UD 3ML (DUONEB) NEB SCH ×4 (07:53→20:06)
[2022-01-06] MEDS: DOCUSATE SODIUM 100MG CAPSULE PO SCH ×2 (09:00→21:11)
[2022-01-06] MEDS ORDERED: guaiFENesin ER 600 MG TAB PO SCH ×2 (09:00)
[2022-01-06] MEDS: PRAVASTATIN 20 MG TAB PO SCH (09:14)
[2022-01-06] MEDS: FERROUS GLUCONATE 324 MG TAB PO SCH (09:14)
[2022-01-06] MEDS: ASPIRIN 81MG ENTERIC TABLET PO SCH (09:14)
[2022-01-06] MEDS: APIXABAN 5 MG TAB (ELIQUIS) PO SCH ×2 (09:15→21:11)
[2022-01-06] MEDS: PANTOPRAZOLE 40MG TAB (PROTONIX) PO SCH (09:15)
[2022-01-06] MEDS: SPIRONOLACTONE 12.5MG PER 1/2 TABLET PO SCH (09:15)
[2022-01-06] MEDS: FUROSEMIDE 40 MG TAB PO SCH (10:29)
[2022-01-06] MEDS: guaiFENesin ER 600 MG TAB PO SCH ×2 (10:30→21:11)
[2022-01-06] MEDS: LATANOPROST 0.005% OPHTH SOLN 2.5 ML OU SCH (21:11)
[2022-01-06] MEDS ORDERED: methylPREDNISolone 40MG 1ML VIAL IV SCH (22:00)
[2022-01-07] VITALS: BP 138/64
[2022-01-07] MEDS: cefTRIAXone SOD 1 GM in D5W MINI-BAG PLUS 50 ML IV SCH (02:48)
[2022-01-07] MEDS: AZITHROMYCIN INJ 500 MG, VIAL MATE ADAPTER 1 EACH in NS 250 ML IV SCH (04:14)
[2022-01-07 04:16] VITALS: BP 131/64
[2022-01-07 04:47] LABS: HEMATOCRIT 39.1 % (42.0-52.0); HEMOGLOBIN 10.7 g/dl (13.5-17.5); LYMPH # 0.4 10^3/uL (1.5-5.0); LYMPH % 5.7 % (24.0-44.0); MEAN CORPUSCULAR HEMOGLOBIN 25.9 pg (27.0-33.0); MEAN CORPUSCULAR HGB CONC 27.4 g/dl (32.0-36.5); MEAN CORPUSCULAR VOLUME 94.7 fl (80.0-96.0); MONO # 0.3 10^3/uL (0.0-0.8); MONO % 4.3 % (2.0-8.0); NEUTROPHILS # 6.3 10^3/uL (1.5-8.5); NEUTROPHILS % 89.6 % (36.0-66.0); PLATELET COUNT, AUTOMATED 274 10^3/uL (150-450); RED BLOOD COUNT 4.13 10^6/uL (4.30-6.10)
[2022-01-07 05:01] LABS: BLOOD UREA NITROGEN 26 MG/DL (7-18); CALCIUM LEVEL 8.2 MG/DL (8.8-10.2); CARBON DIOXIDE LEVEL 41 MEQ/L (21-32); CHLORIDE LEVEL 102 MEQ/L (98-107); CREATININE FOR GFR 0.62 MG/DL (0.70-1.30); GLOMERULAR FILTRATION RATE > 60.0 (>42); GLUCOSE, FASTING 279 MG/DL (70-100); MAGNESIUM LEVEL 2.2 MG/DL (1.8-2.4); POTASSIUM SERUM 4.5 MEQ/L (3.5-5.1); SODIUM LEVEL 143 MEQ/L (136-145)
[2022-01-07] MEDS: HumaLOG INSULIN (NovoLOG) PER UNIT SC SCH ×4 (07:30→21:14)
[2022-01-07] MEDS: IPRATROPIUM 0.5MG/ALBUTEROL 2.5MG INH SOL UD 3ML (DUONEB) NEB SCH ×4 (07:38→19:26)
[2022-01-07 08:00] VITALS: BP 139/73
[2022-01-07] MEDS: DOCUSATE SODIUM 100MG CAPSULE PO SCH ×2 (08:51→21:02)
[2022-01-07] MEDS: PANTOPRAZOLE 40MG TAB (PROTONIX) PO SCH (08:51)
[2022-01-07] MEDS: ASPIRIN 81MG ENTERIC TABLET PO SCH (08:51)
[2022-01-07] MEDS: PRAVASTATIN 20 MG TAB PO SCH (08:51)
[2022-01-07] MEDS: guaiFENesin ER 600 MG TAB PO SCH ×2 (08:52→21:04)
[2022-01-07] MEDS: APIXABAN 5 MG TAB (ELIQUIS) PO SCH ×2 (08:52→21:04)
[2022-01-07] MEDS: SPIRONOLACTONE 12.5MG PER 1/2 TABLET PO SCH (08:52)
[2022-01-07] MEDS: FUROSEMIDE 40 MG TAB PO SCH (08:53)
[2022-01-07] MEDS: FERROUS GLUCONATE 324 MG TAB PO SCH (08:54)
[2022-01-07] MEDS ORDERED: PROCTOFOAM-HC 1% FOAM 10 GM CAN PR PRN (11:50)
[2022-01-07] MEDS: predniSONE 20 MG TAB PO SCH (13:01)
[2022-01-07 16:00] VITALS: BP 142/92
[2022-01-07 16:30] VITALS: BP 141/72
[2022-01-07] MEDS: OLOPATADINE 0.1% OPHTH SOL 5ML(PATANOL) OU SCH (18:33)
[2022-01-07] MEDS: LATANOPROST 0.005% OPHTH SOLN 2.5 ML OU SCH (22:00)
[2022-01-08 06:00] VITALS: BP 148/77
[2022-01-08 06:34] LABS: EOS % 0.1 % (0.0-3.0); HEMOGLOBIN 11.3 g/dl (13.5-17.5); LYMPH # 1.5 10^3/uL (1.5-5.0); LYMPH % 18.8 % (24.0-44.0); MEAN CORPUSCULAR HEMOGLOBIN 26.3 pg (27.0-33.0); MEAN CORPUSCULAR HGB CONC 28.3 g/dl (32.0-36.5); MEAN CORPUSCULAR VOLUME 93.2 fl (80.0-96.0); MONO % 12.7 % (2.0-8.0); NEUTROPHILS # 5.4 10^3/uL (1.5-8.5); PLATELET COUNT, AUTOMATED 256 10^3/uL (150-450); RED BLOOD COUNT 4.29 10^6/uL (4.30-6.10)
[2022-01-08 07:04] LABS: BLOOD UREA NITROGEN 23 MG/DL (7-18); CALCIUM LEVEL 8.6 MG/DL (8.8-10.2); CARBON DIOXIDE LEVEL 41 MEQ/L (21-32); CHLORIDE LEVEL 101 MEQ/L (98-107); CREATININE FOR GFR 0.57 MG/DL (0.70-1.30); GLOMERULAR FILTRATION RATE > 60.0 (>42); GLUCOSE, FASTING 171 MG/DL (70-100); MAGNESIUM LEVEL 2.5 MG/DL (1.8-2.4); POTASSIUM SERUM 4.7 MEQ/L (3.5-5.1); SODIUM LEVEL 140 MEQ/L (136-145)
[2022-01-08] MEDS ORDERED: CEFD300CAP PO (08:40)
[2022-01-08] MEDS ORDERED: AZIT-12 PO (08:40)
[2022-01-08] MEDS ORDERED: PRED10TA2 PO (08:40)
[2022-01-08] MEDS: HumaLOG INSULIN (NovoLOG) PER UNIT SC SCH ×2 (08:48→12:44)
[2022-01-08] MEDS: SPIRONOLACTONE 12.5MG PER 1/2 TABLET PO SCH (08:48)
[2022-01-08] MEDS: APIXABAN 5 MG TAB (ELIQUIS) PO SCH (08:49)
[2022-01-08] MEDS: ASPIRIN 81MG ENTERIC TABLET PO SCH (08:49)
[2022-01-08] MEDS: PANTOPRAZOLE 40MG TAB (PROTONIX) PO SCH (08:49)
[2022-01-08] MEDS: FUROSEMIDE 40 MG TAB PO SCH (08:50)
[2022-01-08] MEDS: guaiFENesin ER 600 MG TAB PO SCH (08:51)
[2022-01-08] MEDS: FERROUS GLUCONATE 324 MG TAB PO SCH (08:51)
[2022-01-08] MEDS: DOCUSATE SODIUM 100MG CAPSULE PO SCH (08:51)
[2022-01-08] MEDS: predniSONE 20 MG TAB PO SCH (08:51)
[2022-01-08 08:55] VITALS: BP 150/81
[2022-01-08] MEDS: OLOPATADINE 0.1% OPHTH SOL 5ML(PATANOL) OU SCH (08:55)
[2022-01-08] MEDS: PRAVASTATIN 20 MG TAB PO SCH (08:56)
[2022-01-08] MEDS: IPRATROPIUM 0.5MG/ALBUTEROL 2.5MG INH SOL UD 3ML (DUONEB) NEB SCH ×2 (08:57→11:47)
[2022-01-08] MEDS ORDERED: CEFDINIR 300 MG CAP (OMNICEF) PO SCH (09:00)
[2022-01-08] MEDS ORDERED: AZITHROMYCIN 250MG TABLET PO SCH (09:00)
== END 2022-01-08 13:41 | disposition home health service (06) | DRG 189 ==
LOC: M ED 18:27 → M ED INP 01-05 00:08 → M ICU 01-05 03:00 → M MS5PR 01-07 16:17
PROVIDERS: ADMIT Internal Medicine; ATTEND Internal Medicine
PROC: 5A09457 Assistance with Respiratory Ventilation, 24-96 Consecutive Hours, Continuous Positive Airway Pressure (ICD-10-PCS; principal; 2022-01-05)
DX: J96.22 Acute and chronic respiratory failure with hypercapnia (principal); G93.41 Metabolic encephalopathy; L89.323 Pressure ulcer of left buttock, stage 3; J44.1 Chronic obstructive pulmonary disease with (acute) exacerbation; L97.919 Non-pressure chronic ulcer of unspecified part of right lower leg with unspecified severity; L97.929 Non-pressure chronic ulcer of unspecified part of left lower leg with unspecified severity; J96.21 Acute and chronic respiratory failure with hypoxia; Z99.81 Dependence on supplemental oxygen; Z79.82 Long term (current) use of aspirin; Z79.01 Long term (current) use of anticoagulants; Z79.899 Other long term (current) drug therapy; Z88.6 Allergy status to analgesic agent; I48.91 Unspecified atrial fibrillation; E11.622 Type 2 diabetes mellitus with other skin ulcer; E78.5 Hyperlipidemia, unspecified; I10 Essential (primary) hypertension; Z20.822 Contact with and (suspected) exposure to COVID-19; Z87.891 Personal history of nicotine dependence; D64.9 Anemia, unspecified; K21.9 Gastro-esophageal reflux disease without esophagitis; R29.6 Repeated falls; I73.9 Peripheral vascular disease, unspecified

== ENCOUNTER → 2022-05-19 | Outpatient (CLI) | payer MEDICARE ==
[~2022-05-19] MED LIST changes: +AZIT-12 PO; +CEFD300CAP PO; +ELIQ5TAB; +FERR32TA PO; +PRAV20TA2 PO; +PRED10TA2 PO; +SYMB16INH
== END ==
LOC: M RAD 14:52
PROVIDERS: ATTEND Internal Medicine Pulmonary Disease
DX: Z87.891 Personal history of nicotine dependence (principal)

== ENCOUNTER → 2022-06-30 | Outpatient (CLI) | payer MEDICARE ==
[2022-06-30 12:09] LABS: BLOOD UREA NITROGEN 24 MG/DL (7-18); CALCIUM LEVEL 9.1 MG/DL (8.8-10.2); CARBON DIOXIDE LEVEL 36 MEQ/L (21-32); CHLORIDE LEVEL 104 MEQ/L (98-107); CREATININE FOR GFR 0.56 MG/DL (0.70-1.30); GLOMERULAR FILTRATION RATE > 60.0 (>42); GLUCOSE, FASTING 124 MG/DL (70-100); POTASSIUM SERUM 4.7 MEQ/L (3.5-5.1); SODIUM LEVEL 141 MEQ/L (136-145)
== END ==
LOC: M WUC 09:09
PROVIDERS: ATTEND Nurse Practitioner Family
DX: I50.42 Chronic combined systolic (congestive) and diastolic (congestive) heart failure (principal)

== ENCOUNTER 2022-11-28 14:28 | Inpatient (IN) | payer MEDICARE ==
[~2022-11-28] VITALS: Ht 177.8 cm; Wt 95.9 kg
[~2022-11-28 14:28] MED LIST changes: -DULE200A INH; +MOME13HF7 INH
[2022-11-28] MEDS ORDERED: ALBUTEROL SULFATE 2.5MG/0.5ML INH NEB SOLN INH ONE (15:00)
[2022-11-28] MEDS ORDERED: IPRATROPIUM 0.5MG/ALBUTEROL 2.5MG INH SOL UD 3ML (DUONEB) NEB ONE (15:00)
[2022-11-28 15:29] LABS: ABG BASE EXCESS 13.1 (-2.0-2.0); ABG HCO3 40.7 MEQ/L (22.0-26.0); ABG O2 SATURATION 83.3 % (95.0-99.0); ABG STANDARD HCO3 36.6 MEQ/L (22.0-26.0); ABG TOTAL CO2 42.8 MEQ/L (23.0-31.0); ABG pH (ARTERIAL) 7.395 UNITS (7.350-7.450)
[2022-11-28 15:30] LABS: ABG PARTIAL PRESSURE O2 48.6 mmHg (75.0-100.0)
[2022-11-28] MEDS ORDERED: SYMB16INH (15:30)
[2022-11-28] MEDS ORDERED: LEVA1.2519 INH (15:30)
[2022-11-28 15:32] LABS: BASO % 0.2 % (0.0-1.0); EOS # 0.3 10^3/uL (0.0-0.5); EOS % 2.9 % (0.0-3.0); HEMATOCRIT 40.7 % (42.0-52.0); HEMOGLOBIN 10.9 g/dl (13.5-17.5); LYMPH # 1.1 10^3/uL (1.5-5.0); MEAN CORPUSCULAR HEMOGLOBIN 24.7 pg (27.0-33.0); MEAN CORPUSCULAR HGB CONC 26.8 g/dl (32.0-36.5); MEAN CORPUSCULAR VOLUME 92.3 fl (80.0-96.0); MONO # 0.7 10^3/uL (0.0-0.8); MONO % 8.1 % (2.0-8.0); NEUTROPHILS # 6.6 10^3/uL (1.5-8.5); NEUTROPHILS % 75.6 % (36.0-66.0); PLATELET COUNT, AUTOMATED 222 10^3/uL (150-450); RED BLOOD COUNT 4.41 10^6/uL (4.30-6.10); WHITE BLOOD COUNT 8.7 10^3/uL (4.0-10.0)
[2022-11-28 15:42] LABS: INR 1.04; PROTHROMBIN TIME 13.8 SECONDS (12.5-14.5)
[2022-11-28 16:02] LABS: BILIRUBIN,DIRECT < 0.1 MG/DL (<0.4)
[2022-11-28 16:04] LABS: PARTIAL THROMBOPLASTIN TIME 28.2 SECONDS (24.8-34.2)
[2022-11-28 16:11] LABS: ALBUMIN 3.3 G/DL (3.2-5.2); ALKALINE PHOSPHATASE 79 U/L (46-116); ALT/SGPT 14 U/L (7.0-40); AST/SGOT 34 U/L (<34); BILIRUBIN,TOTAL 0.3 MG/DL (0.3-1.2); BLOOD UREA NITROGEN 21 MG/DL (9-23); CALCIUM LEVEL 8.9 MG/DL (8.3-10.6); CARBON DIOXIDE LEVEL 38 MMOL/L (20-31); CHLORIDE LEVEL 97 MMOL/L (98-107); CK-MB VALUE MASS 1.9 NG/ML (<3.6); CPK CREATINE PHOSPHOKINASE 70 U/L (46-171); CREATININE FOR GFR 0.49 MG/DL (0.70-1.30); GLOMERULAR FILTRATION RATE > 60.0 (>42); GLUCOSE, FASTING 132 MG/DL (74-106); MB/CK RELATIVE INDEX 2.71 (< OR =4); POTASSIUM SERUM 5.4 MMOL/L (3.5-5.1); SODIUM LEVEL 141 MMOL/L (136-145); THYROID STIMULATING HORMONE 2.844 uIU/ML (0.55-4.78); THYROXINE (T4) 7.2 UG/DL (4.5-10.9); TOTAL PROTEIN 6.7 G/DL (5.7-8.2)
[2022-11-28 16:51] LABS: CK-MB VALUE MASS < 1.0 NG/ML (<3.6)
[2022-11-28 17:04] LABS: CPK CREATINE PHOSPHOKINASE 38 U/L (46-171); MB/CK RELATIVE INDEX 2.63 (< OR =4)
[2022-11-28] MEDS ORDERED: ERGO500029 PO (17:08)
[2022-11-28] MEDS ORDERED: FUROSEMIDE 40MG/4ML VIAL IV ONE (17:10)
[2022-11-28] MEDS ORDERED: HOME MED LIST COMPLETE! XX SCH (17:10)
[2022-11-28] MEDS ORDERED: DEXTROSE 50% 50ML SYRINGE IV PRN (17:20)
[2022-11-28] MEDS ORDERED: GLUCAGON INJ 1MG VIAL SC PRN (17:20)
[2022-11-28] MEDS ORDERED: GLUCOSE 4GM CHEW TABLET PO PRN (17:20)
[2022-11-28] MEDS: AZITHROMYCIN 250MG TABLET PO SCH (17:30)
[2022-11-28] MEDS ORDERED: ISOVUE-370 76% 100ML VIAL As Ordered ONE (17:34)
[2022-11-28] MEDS: INSULIN LISPRO (NovoLOG) PER UNIT SC SCH ×3 (18:30→21:00)
[2022-11-28] MEDS: IPRATROPIUM 0.5MG/ALBUTEROL 2.5MG INH SOL UD 3ML (DUONEB) NEB SCH ×2 (19:45→23:11)
[2022-11-28] MEDS ORDERED: cefTRIAXone SOD 1GM VIAL IM SCH (20:00)
[2022-11-28 20:30] VITALS: BP 129/64
[2022-11-28] MEDS ORDERED: APIXABAN 5 MG TAB (ELIQUIS) PO SCH (21:00)
[2022-11-28] MEDS: cefTRIAXone SOD 1 GM in D5W MINI-BAG PLUS 50 ML IV SCH (21:00)
[2022-11-28] MEDS: methylPREDNISolone 40MG 1ML VIAL IV SCH (21:00)
[2022-11-28] MEDS: PRAVASTATIN 20 MG TAB PO SCH (21:11)
[2022-11-28] MEDS: ENOXAPARIN 100MG/1ML SYRINGE (J1650 PER 10MG) SC SCH (21:11)
[2022-11-29] VITALS (12 sets, daily range): BP systolic 116–136; BP diastolic 59–71; O2SAT 88–93
[2022-11-29] MEDS: IPRATROPIUM 0.5MG/ALBUTEROL 2.5MG INH SOL UD 3ML (DUONEB) NEB SCH ×6 (03:05→23:08)
[2022-11-29] MEDS: methylPREDNISolone 40MG 1ML VIAL IV SCH ×3 (04:52→20:52)
[2022-11-29 05:39] LABS: HEMATOCRIT 38.9 % (42.0-52.0); HEMOGLOBIN 10.8 g/dl (13.5-17.5); MEAN CORPUSCULAR HEMOGLOBIN 25.6 pg (27.0-33.0); MEAN CORPUSCULAR HGB CONC 27.8 g/dl (32.0-36.5); MEAN CORPUSCULAR VOLUME 92.2 fl (80.0-96.0); PLATELET COUNT, AUTOMATED 214 10^3/uL (150-450); RED BLOOD COUNT 4.22 10^6/uL (4.30-6.10); WHITE BLOOD COUNT 6.1 10^3/uL (4.0-10.0)
[2022-11-29 06:13] LABS: ALBUMIN 3.2 G/DL (3.2-5.2); ALKALINE PHOSPHATASE 75 U/L (46-116); ALT/SGPT 11 U/L (7.0-40); AST/SGOT 12 U/L (<34); BILIRUBIN,TOTAL 0.2 MG/DL (0.3-1.2); BLOOD UREA NITROGEN 24 MG/DL (9-23); CALCIUM LEVEL 8.7 MG/DL (8.3-10.6); CARBON DIOXIDE LEVEL > 40.0 MMOL/L (20-31); CHLORIDE LEVEL 98 MMOL/L (98-107); CREATININE FOR GFR 0.57 MG/DL (0.70-1.30); GLOMERULAR FILTRATION RATE > 60.0 (>42); GLUCOSE, FASTING 232 MG/DL (74-106); POTASSIUM SERUM 4.7 MMOL/L (3.5-5.1); SODIUM LEVEL 141 MMOL/L (136-145); TOTAL PROTEIN 6.2 G/DL (5.7-8.2)
[2022-11-29] MEDS: ASPIRIN 81MG ENTERIC TABLET PO SCH (09:03)
[2022-11-29] MEDS: SPIRONOLACTONE 12.5MG PER 1/2 TABLET PO SCH (09:03)
[2022-11-29] MEDS: PANTOPRAZOLE 40MG TAB (PROTONIX) PO SCH (09:03)
[2022-11-29] MEDS: ENOXAPARIN 100MG/1ML SYRINGE (J1650 PER 10MG) SC SCH ×2 (09:04→20:48)
[2022-11-29 09:08] LABS: ABG BASE EXCESS 9.2 (-2.0-2.0); ABG HCO3 37.2 MEQ/L (22.0-26.0); ABG O2 SATURATION 88.3 % (95.0-99.0); ABG PARTIAL PRESSURE O2 59.2 mmHg (75.0-100.0); ABG STANDARD HCO3 32.8 MEQ/L (22.0-26.0); ABG TOTAL CO2 39.3 MEQ/L (23.0-31.0); ABG pH (ARTERIAL) 7.347 UNITS (7.350-7.450)
[2022-11-29 09:12] LABS: ABG PARTIAL PRESSURE CO2 69.4 mmHg (35.0-45.0)
[2022-11-29] MEDS: INSULIN LISPRO (NovoLOG) PER UNIT SC SCH ×3 (15:28→21:00)
[2022-11-29] MEDS: AZITHROMYCIN 250MG TABLET PO SCH (18:42)
[2022-11-29] MEDS: PRAVASTATIN 20 MG TAB PO SCH (20:48)
[2022-11-29] MEDS: LEVEMIR (INSULIN DETEMIR) 1 UNITS/0.01ML SC SCH (20:52)
[2022-11-29] MEDS: ACETAMINOPHEN TAB 650MG DOSE (2X325MG) PO PRN (20:53)
[2022-11-29] MEDS: cefTRIAXone SOD 1 GM in D5W MINI-BAG PLUS 50 ML IV SCH (20:54)
[2022-11-30] VITALS (23 sets, daily range): BP systolic 111–141; BP diastolic 58–74; O2SAT 84–97
[2022-11-30] MEDS: IPRATROPIUM 0.5MG/ALBUTEROL 2.5MG INH SOL UD 3ML (DUONEB) NEB SCH ×2 (03:09→07:10)
[2022-11-30] MEDS: methylPREDNISolone 40MG 1ML VIAL IV SCH ×2 (04:00→12:56)
[2022-11-30 05:17] LABS: BASO % 0.1 % (0.0-1.0); HEMOGLOBIN 10.3 g/dl (13.5-17.5); LYMPH # 0.7 10^3/uL (1.5-5.0); LYMPH % 5.1 % (24.0-44.0); MEAN CORPUSCULAR HEMOGLOBIN 24.9 pg (27.0-33.0); MEAN CORPUSCULAR HGB CONC 27.1 g/dl (32.0-36.5); MEAN CORPUSCULAR VOLUME 91.8 fl (80.0-96.0); MONO # 0.4 10^3/uL (0.0-0.8); MONO % 2.8 % (2.0-8.0); NEUTROPHILS # 12.3 10^3/uL (1.5-8.5); NEUTROPHILS % 91.5 % (36.0-66.0); PLATELET COUNT, AUTOMATED 246 10^3/uL (150-450); RED BLOOD COUNT 4.14 10^6/uL (4.30-6.10); WHITE BLOOD COUNT 13.4 10^3/uL (4.0-10.0)
[2022-11-30 05:39] LABS: BLOOD UREA NITROGEN 31 MG/DL (9-23); CALCIUM LEVEL 8.5 MG/DL (8.3-10.6); CARBON DIOXIDE LEVEL 37 MMOL/L (20-31); CHLORIDE LEVEL 102 MMOL/L (98-107); CREATININE FOR GFR 0.67 MG/DL (0.70-1.30); GLOMERULAR FILTRATION RATE > 60.0 (>42); GLUCOSE, FASTING 237 MG/DL (74-106); POTASSIUM SERUM 4.6 MMOL/L (3.5-5.1); SODIUM LEVEL 141 MMOL/L (136-145)
[2022-11-30 05:50] LABS: ABG BASE EXCESS 5.9 (-2.0-2.0); ABG HCO3 33.7 MEQ/L (22.0-26.0); ABG O2 SATURATION 88.9 % (95.0-99.0); ABG PARTIAL PRESSURE O2 59.8 mmHg (75.0-100.0); ABG STANDARD HCO3 29.7 MEQ/L (22.0-26.0); ABG TOTAL CO2 35.7 MEQ/L (23.0-31.0); ABG pH (ARTERIAL) 7.325 UNITS (7.350-7.450)
[2022-11-30 05:56] LABS: ABG PARTIAL PRESSURE CO2 66.1 mmHg (35.0-45.0)
[2022-11-30] MEDS: INSULIN LISPRO (NovoLOG) PER UNIT SC SCH ×4 (08:12→21:55)
[2022-11-30] MEDS: SPIRONOLACTONE 12.5MG PER 1/2 TABLET PO SCH (08:14)
[2022-11-30] MEDS: ASPIRIN 81MG ENTERIC TABLET PO SCH (08:14)
[2022-11-30] MEDS: ENOXAPARIN 100MG/1ML SYRINGE (J1650 PER 10MG) SC SCH ×2 (08:14→21:03)
[2022-11-30] MEDS: PANTOPRAZOLE 40MG TAB (PROTONIX) PO SCH (08:15)
[2022-11-30] MEDS ORDERED: ISOVUE-370 76% 100ML VIAL As Ordered ONE (11:11)
[2022-11-30] MEDS: ALBUTEROL SULFATE 2.5MG/0.5ML INH NEB SOLN NEB SCH ×3 (11:36→20:02)
[2022-11-30] MEDS: SYMBICORT 160/4.5MCG INHALER 6GM INH SCH ×2 (11:37→20:03)
[2022-11-30] MEDS: SODIUM CHLORIDE HYPERTONIC 3% 15ML NEB SOL INH SCH ×3 (11:37→20:03)
[2022-11-30] MEDS: TIOTROPIUM INHALER/CAPSULE (SPIRIVA) INH SCH (11:37)
[2022-11-30] MEDS: FUROSEMIDE 40 MG TAB PO SCH (14:03)
[2022-11-30] MEDS ORDERED: MIDAZOLAM INJ 2MG/2ML VIAL IV ONE (14:30)
[2022-11-30] MEDS: AZITHROMYCIN 250MG TABLET PO SCH (17:27)
[2022-11-30] MEDS: cefTRIAXone SOD 1 GM in D5W MINI-BAG PLUS 50 ML IV SCH (19:55)
[2022-11-30] MEDS: PRAVASTATIN 20 MG TAB PO SCH (21:02)
[2022-11-30] MEDS: LEVEMIR (INSULIN DETEMIR) 1 UNITS/0.01ML SC SCH (21:03)
[2022-12-01] VITALS (11 sets, daily range): BP systolic 115–128; BP diastolic 57–69; O2SAT 89–99
[2022-12-01] MEDS: methylPREDNISolone 40MG 1ML VIAL IV SCH ×2 (00:20→14:56)
[2022-12-01 04:21] LABS: BASO % 0.1 % (0.0-1.0); HEMATOCRIT 40.5 % (42.0-52.0); HEMOGLOBIN 10.8 g/dl (13.5-17.5); LYMPH # 0.5 10^3/uL (1.5-5.0); LYMPH % 4.6 % (24.0-44.0); MEAN CORPUSCULAR HEMOGLOBIN 24.6 pg (27.0-33.0); MEAN CORPUSCULAR HGB CONC 26.7 g/dl (32.0-36.5); MEAN CORPUSCULAR VOLUME 92.3 fl (80.0-96.0); MONO # 0.5 10^3/uL (0.0-0.8); MONO % 4.3 % (2.0-8.0); NEUTROPHILS # 10.2 10^3/uL (1.5-8.5); NEUTROPHILS % 90.5 % (36.0-66.0); PLATELET COUNT, AUTOMATED 251 10^3/uL (150-450); RED BLOOD COUNT 4.39 10^6/uL (4.30-6.10); WHITE BLOOD COUNT 11.3 10^3/uL (4.0-10.0)
[2022-12-01 04:44] LABS: BLOOD UREA NITROGEN 34 MG/DL (9-23); CALCIUM LEVEL 8.3 MG/DL (8.3-10.6); CARBON DIOXIDE LEVEL 38 MMOL/L (20-31); CHLORIDE LEVEL 100 MMOL/L (98-107); CREATININE FOR GFR 0.65 MG/DL (0.70-1.30); GLOMERULAR FILTRATION RATE > 60.0 (>42); GLUCOSE, FASTING 242 MG/DL (74-106); SODIUM LEVEL 140 MMOL/L (136-145)
[2022-12-01] MEDS: INSULIN LISPRO (NovoLOG) PER UNIT SC SCH ×4 (07:30→21:00)
[2022-12-01] MEDS: ALBUTEROL SULFATE 2.5MG/0.5ML INH NEB SOLN NEB SCH ×4 (08:00→19:54)
[2022-12-01] MEDS: SYMBICORT 160/4.5MCG INHALER 6GM INH SCH ×2 (08:31→19:55)
[2022-12-01] MEDS: TIOTROPIUM INHALER/CAPSULE (SPIRIVA) INH SCH (08:32)
[2022-12-01] MEDS: SODIUM CHLORIDE HYPERTONIC 3% 15ML NEB SOL INH SCH ×4 (08:35→19:55)
[2022-12-01] MEDS: ASPIRIN 81MG ENTERIC TABLET PO SCH (08:59)
[2022-12-01] MEDS ORDERED: fentaNYL 100 MCG/2 ML INJECTION IV ONE ×2 (09:00→11:25)
[2022-12-01] MEDS: FUROSEMIDE 40 MG TAB PO SCH (09:00)
[2022-12-01] MEDS: PANTOPRAZOLE 40MG TAB (PROTONIX) PO SCH (09:00)
[2022-12-01] MEDS: ENOXAPARIN 100MG/1ML SYRINGE (J1650 PER 10MG) SC SCH ×2 (09:01→21:16)
[2022-12-01] MEDS ORDERED: MIDAZOLAM INJ 2MG/2ML VIAL IV ONE (10:45)
[2022-12-01] MEDS: AZITHROMYCIN 250MG TABLET PO SCH (19:10)
[2022-12-01] MEDS: guaiFENesin ER 600 MG TAB PO SCH (21:16)
[2022-12-01] MEDS: cefTRIAXone SOD 1 GM in D5W MINI-BAG PLUS 50 ML IV SCH (21:16)
[2022-12-01] MEDS: LEVEMIR (INSULIN DETEMIR) 1 UNITS/0.01ML SC SCH (21:17)
[2022-12-01] MEDS: PRAVASTATIN 20 MG TAB PO SCH (21:18)
[2022-12-02] VITALS (39 sets, daily range): BP systolic 119–159; BP diastolic 63–94; O2SAT 81–96
[2022-12-02] MEDS: methylPREDNISolone 40MG 1ML VIAL IV SCH (00:51)
[2022-12-02 04:08] LABS: HEMATOCRIT 41.2 % (42.0-52.0); HEMOGLOBIN 11.3 g/dl (13.5-17.5); LYMPH # 0.4 10^3/uL (1.5-5.0); LYMPH % 3.9 % (24.0-44.0); MEAN CORPUSCULAR HEMOGLOBIN 24.6 pg (27.0-33.0); MEAN CORPUSCULAR HGB CONC 27.4 g/dl (32.0-36.5); MEAN CORPUSCULAR VOLUME 89.6 fl (80.0-96.0); MONO # 0.2 10^3/uL (0.0-0.8); MONO % 1.8 % (2.0-8.0); NEUTROPHILS # 10.1 10^3/uL (1.5-8.5); NEUTROPHILS % 93.8 % (36.0-66.0); PLATELET COUNT, AUTOMATED 262 10^3/uL (150-450); WHITE BLOOD COUNT 10.7 10^3/uL (4.0-10.0)
[2022-12-02 04:34] LABS: BLOOD UREA NITROGEN 40 MG/DL (9-23); CALCIUM LEVEL 8.6 MG/DL (8.3-10.6); CARBON DIOXIDE LEVEL 38 MMOL/L (20-31); CHLORIDE LEVEL 98 MMOL/L (98-107); CREATININE FOR GFR 0.59 MG/DL (0.70-1.30); GLOMERULAR FILTRATION RATE > 60.0 (>42); GLUCOSE, FASTING 239 MG/DL (74-106); POTASSIUM SERUM 5.1 MMOL/L (3.5-5.1); SODIUM LEVEL 139 MMOL/L (136-145)
[2022-12-02] MEDS: SYMBICORT 160/4.5MCG INHALER 6GM INH SCH ×3 (08:00→20:09)
[2022-12-02] MEDS: ALBUTEROL SULFATE 2.5MG/0.5ML INH NEB SOLN NEB SCH ×4 (08:02→20:09)
[2022-12-02] MEDS: TIOTROPIUM INHALER/CAPSULE (SPIRIVA) INH SCH (08:02)
[2022-12-02] MEDS: SODIUM CHLORIDE HYPERTONIC 3% 15ML NEB SOL INH SCH ×4 (08:02→20:09)
[2022-12-02] MEDS: INSULIN LISPRO (NovoLOG) PER UNIT SC SCH ×4 (08:40→20:26)
[2022-12-02] MEDS: ASPIRIN 81MG ENTERIC TABLET PO SCH (08:41)
[2022-12-02] MEDS: ENOXAPARIN 100MG/1ML SYRINGE (J1650 PER 10MG) SC SCH ×2 (08:41→20:40)
[2022-12-02] MEDS: PANTOPRAZOLE 40MG TAB (PROTONIX) PO SCH (08:42)
[2022-12-02] MEDS: FUROSEMIDE 40 MG TAB PO SCH (08:42)
[2022-12-02] MEDS: guaiFENesin ER 600 MG TAB PO SCH ×2 (08:42→20:39)
[2022-12-02] MEDS ORDERED: methylPREDNISolone 125MG 2ML VIAL IV SCH (10:00)
[2022-12-02] MEDS ORDERED: methylPREDNISolone 125MG 2ML VIAL IV STA (13:52)
[2022-12-02] MEDS: AZITHROMYCIN 250MG TABLET PO SCH (17:49)
[2022-12-02] MEDS: methylPREDNISolone 125MG 2ML VIAL IV SCH (20:38)
[2022-12-02] MEDS: LATANOPROST 0.005% OPHTH SOLN 2.5 ML OU SCH (20:39)
[2022-12-02] MEDS: PRAVASTATIN 20 MG TAB PO SCH (20:39)
[2022-12-02] MEDS: cefTRIAXone SOD 1 GM in D5W MINI-BAG PLUS 50 ML IV SCH (20:40)
[2022-12-02] MEDS: LEVEMIR (INSULIN DETEMIR) 1 UNITS/0.01ML SC SCH (20:40)
[2022-12-02] MEDS ORDERED: LEVEMIR (INSULIN DETEMIR) 1 UNITS/0.01ML SC SCH (21:00)
[2022-12-03] VITALS (31 sets, daily range): BP systolic 111–147; BP diastolic 56–91; O2SAT 84–95
[2022-12-03] MEDS: methylPREDNISolone 125MG 2ML VIAL IV SCH ×3 (03:44→20:37)
[2022-12-03 05:36] LABS: HEMATOCRIT 42.6 % (42.0-52.0); HEMOGLOBIN 11.9 g/dl (13.5-17.5); LYMPH # 0.4 10^3/uL (1.5-5.0); LYMPH % 5.3 % (24.0-44.0); MEAN CORPUSCULAR HEMOGLOBIN 24.8 pg (27.0-33.0); MEAN CORPUSCULAR HGB CONC 27.9 g/dl (32.0-36.5); MEAN CORPUSCULAR VOLUME 88.8 fl (80.0-96.0); MONO # 0.3 10^3/uL (0.0-0.8); MONO % 3.3 % (2.0-8.0); NEUTROPHILS # 7.4 10^3/uL (1.5-8.5); NEUTROPHILS % 91.2 % (36.0-66.0); PLATELET COUNT, AUTOMATED 267 10^3/uL (150-450); WHITE BLOOD COUNT 8.1 10^3/uL (4.0-10.0)
[2022-12-03 06:02] LABS: BLOOD UREA NITROGEN 42 MG/DL (9-23); CALCIUM LEVEL 8.5 MG/DL (8.3-10.6); CARBON DIOXIDE LEVEL 39 MMOL/L (20-31); CHLORIDE LEVEL 98 MMOL/L (98-107); CREATININE FOR GFR 0.52 MG/DL (0.70-1.30); GLOMERULAR FILTRATION RATE > 60.0 (>42); GLUCOSE, FASTING 256 MG/DL (74-106); POTASSIUM SERUM 4.7 MMOL/L (3.5-5.1); SODIUM LEVEL 140 MMOL/L (136-145)
[2022-12-03] MEDS: TIOTROPIUM INHALER/CAPSULE (SPIRIVA) INH SCH (07:51)
[2022-12-03] MEDS: SODIUM CHLORIDE HYPERTONIC 3% 15ML NEB SOL INH SCH ×4 (07:51→20:14)
[2022-12-03] MEDS: ALBUTEROL SULFATE 2.5MG/0.5ML INH NEB SOLN NEB SCH ×4 (07:51→20:14)
[2022-12-03] MEDS: SYMBICORT 160/4.5MCG INHALER 6GM INH SCH ×2 (07:51→20:14)
[2022-12-03] MEDS: INSULIN LISPRO (NovoLOG) PER UNIT SC SCH ×4 (08:10→20:38)
[2022-12-03] MEDS: LEVEMIR (INSULIN DETEMIR) 1 UNITS/0.01ML SC SCH ×2 (08:10→20:38)
[2022-12-03] MEDS: ASPIRIN 81MG ENTERIC TABLET PO SCH (08:11)
[2022-12-03] MEDS: PANTOPRAZOLE 40MG TAB (PROTONIX) PO SCH (08:11)
[2022-12-03] MEDS: guaiFENesin ER 600 MG TAB PO SCH ×2 (08:11→20:37)
[2022-12-03] MEDS: FUROSEMIDE 40 MG TAB PO SCH (08:11)
[2022-12-03] MEDS: ENOXAPARIN 100MG/1ML SYRINGE (J1650 PER 10MG) SC SCH ×2 (08:12→20:39)
[2022-12-03] MEDS ORDERED: fentaNYL 100 MCG/2 ML INJECTION IV PRN (10:30)
[2022-12-03] MEDS: AZITHROMYCIN 250MG TABLET PO SCH (17:18)
[2022-12-03] MEDS: cefTRIAXone SOD 1 GM in D5W MINI-BAG PLUS 50 ML IV SCH (20:37)
[2022-12-03] MEDS: PRAVASTATIN 20 MG TAB PO SCH (20:38)
[2022-12-03] MEDS: LATANOPROST 0.005% OPHTH SOLN 2.5 ML OU SCH (20:39)
[2022-12-04] VITALS (16 sets, daily range): BP systolic 120–141; BP diastolic 57–70; O2SAT 85–97
[2022-12-04] MEDS: methylPREDNISolone 125MG 2ML VIAL IV SCH ×3 (03:48→20:18)
[2022-12-04 06:05] LABS: HEMATOCRIT 42.7 % (42.0-52.0); LYMPH # 0.4 10^3/uL (1.5-5.0); LYMPH % 4.7 % (24.0-44.0); MEAN CORPUSCULAR HEMOGLOBIN 24.6 pg (27.0-33.0); MEAN CORPUSCULAR HGB CONC 28.1 g/dl (32.0-36.5); MEAN CORPUSCULAR VOLUME 87.7 fl (80.0-96.0); MONO # 0.4 10^3/uL (0.0-0.8); MONO % 4.1 % (2.0-8.0); NEUTROPHILS % 90.5 % (36.0-66.0); PLATELET COUNT, AUTOMATED 255 10^3/uL (150-450); RED BLOOD COUNT 4.87 10^6/uL (4.30-6.10); WHITE BLOOD COUNT 8.9 10^3/uL (4.0-10.0)
[2022-12-04 06:39] LABS: BLOOD UREA NITROGEN 41 MG/DL (9-23); CALCIUM LEVEL 8.6 MG/DL (8.3-10.6); CARBON DIOXIDE LEVEL 36 MMOL/L (20-31); CHLORIDE LEVEL 99 MMOL/L (98-107); CREATININE FOR GFR 0.55 MG/DL (0.70-1.30); GLOMERULAR FILTRATION RATE > 60.0 (>42); GLUCOSE, FASTING 232 MG/DL (74-106); POTASSIUM SERUM 4.7 MMOL/L (3.5-5.1); SODIUM LEVEL 141 MMOL/L (136-145)
[2022-12-04] MEDS: SODIUM CHLORIDE HYPERTONIC 3% 15ML NEB SOL INH SCH ×5 (07:24→19:56)
[2022-12-04] MEDS: TIOTROPIUM INHALER/CAPSULE (SPIRIVA) INH SCH (07:25)
[2022-12-04] MEDS: ALBUTEROL SULFATE 2.5MG/0.5ML INH NEB SOLN NEB SCH ×4 (07:25→19:53)
[2022-12-04] MEDS: SYMBICORT 160/4.5MCG INHALER 6GM INH SCH ×2 (07:25→19:54)
[2022-12-04] MEDS: INSULIN LISPRO (NovoLOG) PER UNIT SC SCH ×4 (08:20→20:19)
[2022-12-04] MEDS: LEVEMIR (INSULIN DETEMIR) 1 UNITS/0.01ML SC SCH ×2 (08:21→20:19)
[2022-12-04] MEDS: ENOXAPARIN 100MG/1ML SYRINGE (J1650 PER 10MG) SC SCH ×2 (08:21→20:20)
[2022-12-04] MEDS: ASPIRIN 81MG ENTERIC TABLET PO SCH (08:22)
[2022-12-04] MEDS: guaiFENesin ER 600 MG TAB PO SCH ×2 (08:22→20:24)
[2022-12-04] MEDS: FUROSEMIDE 40 MG TAB PO SCH (08:22)
[2022-12-04] MEDS: PANTOPRAZOLE 40MG TAB (PROTONIX) PO SCH (08:22)
[2022-12-04] MEDS: AZITHROMYCIN 250MG TABLET PO SCH (17:23)
[2022-12-04] MEDS: cefTRIAXone SOD 1 GM in D5W MINI-BAG PLUS 50 ML IV SCH (20:18)
[2022-12-04] MEDS: LATANOPROST 0.005% OPHTH SOLN 2.5 ML OU SCH (20:20)
[2022-12-04] MEDS: PRAVASTATIN 20 MG TAB PO SCH (20:24)
[2022-12-05] VITALS (37 sets, daily range): BP systolic 118–135; BP diastolic 56–81; O2SAT 82–97
[2022-12-05] MEDS: methylPREDNISolone 125MG 2ML VIAL IV SCH ×3 (03:06→20:04)
[2022-12-05 04:56] LABS: BASO % 0.1 % (0.0-1.0); HEMATOCRIT 43.5 % (42.0-52.0); HEMOGLOBIN 12.3 g/dl (13.5-17.5); LYMPH # 0.3 10^3/uL (1.5-5.0); LYMPH % 3.6 % (24.0-44.0); MEAN CORPUSCULAR HGB CONC 28.3 g/dl (32.0-36.5); MEAN CORPUSCULAR VOLUME 88.4 fl (80.0-96.0); MONO # 0.4 10^3/uL (0.0-0.8); MONO % 4.3 % (2.0-8.0); NEUTROPHILS # 8.2 10^3/uL (1.5-8.5); NEUTROPHILS % 91.2 % (36.0-66.0); PLATELET COUNT, AUTOMATED 287 10^3/uL (150-450); RED BLOOD COUNT 4.92 10^6/uL (4.30-6.10); WHITE BLOOD COUNT 8.9 10^3/uL (4.0-10.0)
[2022-12-05 05:17] LABS: BLOOD UREA NITROGEN 41 MG/DL (9-23); CALCIUM LEVEL 8.1 MG/DL (8.3-10.6); CARBON DIOXIDE LEVEL 40 MMOL/L (20-31); CHLORIDE LEVEL 100 MMOL/L (98-107); CREATININE FOR GFR 0.53 MG/DL (0.70-1.30); GLOMERULAR FILTRATION RATE > 60.0 (>42); GLUCOSE, FASTING 233 MG/DL (74-106); POTASSIUM SERUM 4.3 MMOL/L (3.5-5.1); SODIUM LEVEL 144 MMOL/L (136-145)
[2022-12-05] MEDS: SODIUM CHLORIDE HYPERTONIC 3% 15ML NEB SOL INH SCH ×4 (07:45→20:01)
[2022-12-05] MEDS: ALBUTEROL SULFATE 2.5MG/0.5ML INH NEB SOLN NEB SCH ×4 (07:45→20:05)
[2022-12-05] MEDS: TIOTROPIUM INHALER/CAPSULE (SPIRIVA) INH SCH (07:46)
[2022-12-05] MEDS: SYMBICORT 160/4.5MCG INHALER 6GM INH SCH ×2 (07:46→20:02)
[2022-12-05] MEDS ORDERED: LEVEMIR (INSULIN DETEMIR) 1 UNITS/0.01ML SC SCH ×2 (09:00→21:00)
[2022-12-05] MEDS: INSULIN LISPRO (NovoLOG) PER UNIT SC SCH ×4 (09:09→20:03)
[2022-12-05] MEDS: ASPIRIN 81MG ENTERIC TABLET PO SCH (09:10)
[2022-12-05] MEDS: ENOXAPARIN 100MG/1ML SYRINGE (J1650 PER 10MG) SC SCH ×2 (09:10→20:03)
[2022-12-05] MEDS: PANTOPRAZOLE 40MG TAB (PROTONIX) PO SCH (09:11)
[2022-12-05] MEDS: FUROSEMIDE 40 MG TAB PO SCH (09:11)
[2022-12-05] MEDS: guaiFENesin ER 600 MG TAB PO SCH ×2 (09:11→20:03)
[2022-12-05] MEDS: fentaNYL 100 MCG/2 ML INJECTION IV PRN (13:20)
[2022-12-05] MEDS: LATANOPROST 0.005% OPHTH SOLN 2.5 ML OU SCH (20:02)
[2022-12-05] MEDS: PRAVASTATIN 20 MG TAB PO SCH (20:03)
[2022-12-06] VITALS (34 sets, daily range): BP systolic 121–151; BP diastolic 60–80; O2SAT 85–96
[2022-12-06] MEDS: methylPREDNISolone 125MG 2ML VIAL IV SCH ×3 (03:08→21:21)
[2022-12-06 04:49] LABS: BASO % 0.1 % (0.0-1.0); HEMATOCRIT 44.6 % (42.0-52.0); HEMOGLOBIN 12.3 g/dl (13.5-17.5); LYMPH # 0.4 10^3/uL (1.5-5.0); LYMPH % 3.2 % (24.0-44.0); MEAN CORPUSCULAR HEMOGLOBIN 24.7 pg (27.0-33.0); MEAN CORPUSCULAR HGB CONC 27.6 g/dl (32.0-36.5); MEAN CORPUSCULAR VOLUME 89.7 fl (80.0-96.0); MONO # 0.5 10^3/uL (0.0-0.8); NEUTROPHILS # 10.3 10^3/uL (1.5-8.5); PLATELET COUNT, AUTOMATED 295 10^3/uL (150-450); RED BLOOD COUNT 4.97 10^6/uL (4.30-6.10); WHITE BLOOD COUNT 11.2 10^3/uL (4.0-10.0)
[2022-12-06 05:18] LABS: BLOOD UREA NITROGEN 43 MG/DL (9-23); CALCIUM LEVEL 8.4 MG/DL (8.3-10.6); CARBON DIOXIDE LEVEL > 40.0 MMOL/L (20-31); CHLORIDE LEVEL 101 MMOL/L (98-107); CREATININE FOR GFR 0.62 MG/DL (0.70-1.30); GLOMERULAR FILTRATION RATE > 60.0 (>42); GLUCOSE, FASTING 224 MG/DL (74-106); POTASSIUM SERUM 4.5 MMOL/L (3.5-5.1); SODIUM LEVEL 144 MMOL/L (136-145)
[2022-12-06] MEDS: INSULIN LISPRO (NovoLOG) PER UNIT SC SCH ×4 (08:11→21:10)
[2022-12-06] MEDS: LEVEMIR (INSULIN DETEMIR) 1 UNITS/0.01ML SC SCH (08:12)
[2022-12-06] MEDS: ASPIRIN 81MG ENTERIC TABLET PO SCH (08:12)
[2022-12-06] MEDS: PANTOPRAZOLE 40MG TAB (PROTONIX) PO SCH (08:13)
[2022-12-06] MEDS: FUROSEMIDE 40 MG TAB PO SCH (08:13)
[2022-12-06] MEDS: guaiFENesin ER 600 MG TAB PO SCH ×2 (08:13→21:11)
[2022-12-06] MEDS: ENOXAPARIN 100MG/1ML SYRINGE (J1650 PER 10MG) SC SCH ×2 (08:13→21:10)
[2022-12-06] MEDS: TIOTROPIUM INHALER/CAPSULE (SPIRIVA) INH SCH (08:28)
[2022-12-06] MEDS: ALBUTEROL SULFATE 2.5MG/0.5ML INH NEB SOLN NEB SCH ×4 (08:28→20:43)
[2022-12-06] MEDS: SYMBICORT 160/4.5MCG INHALER 6GM INH SCH ×2 (08:28→20:43)
[2022-12-06] MEDS: SODIUM CHLORIDE HYPERTONIC 3% 15ML NEB SOL INH SCH ×5 (10:10→20:42)
[2022-12-06] MEDS: SODIUM CHLORIDE NASAL 0.65% SPRAY BTL (OCEAN) PRN (10:12)
[2022-12-06] MEDS: fentaNYL 100 MCG/2 ML INJECTION IV PRN (13:15)
[2022-12-06] MEDS ORDERED: LEVEMIR (INSULIN DETEMIR) 1 UNITS/0.01ML SC SCH (21:00)
[2022-12-06] MEDS: PRAVASTATIN 20 MG TAB PO SCH (21:11)
[2022-12-06] MEDS: LATANOPROST 0.005% OPHTH SOLN 2.5 ML OU SCH (21:11)
[2022-12-07] VITALS (38 sets, daily range): BP systolic 111–139; BP diastolic 58–88; O2SAT 82–96
[2022-12-07] MEDS: methylPREDNISolone 125MG 2ML VIAL IV SCH ×3 (03:51→20:57)
[2022-12-07 04:14] LABS: HEMATOCRIT 42.5 % (42.0-52.0); MEAN CORPUSCULAR HEMOGLOBIN 24.8 pg (27.0-33.0); MEAN CORPUSCULAR HGB CONC 28.2 g/dl (32.0-36.5); PLATELET COUNT, AUTOMATED 279 10^3/uL (150-450); RED BLOOD COUNT 4.83 10^6/uL (4.30-6.10); WHITE BLOOD COUNT 12.3 10^3/uL (4.0-10.0)
[2022-12-07 04:40] LABS: ALBUMIN 2.7 G/DL (3.2-5.2); ALKALINE PHOSPHATASE 56 U/L (46-116); ALT/SGPT 18 U/L (7.0-40); AST/SGOT 16 U/L (<34); BILIRUBIN,TOTAL 0.5 MG/DL (0.3-1.2); BLOOD UREA NITROGEN 39 MG/DL (9-23); CALCIUM LEVEL 7.9 MG/DL (8.3-10.6); CARBON DIOXIDE LEVEL 40 MMOL/L (20-31); CHLORIDE LEVEL 99 MMOL/L (98-107); CREATININE FOR GFR 0.45 MG/DL (0.70-1.30); GLOMERULAR FILTRATION RATE > 60.0 (>42); GLUCOSE, FASTING 207 MG/DL (74-106); POTASSIUM SERUM 4.2 MMOL/L (3.5-5.1); SODIUM LEVEL 142 MMOL/L (136-145); TOTAL PROTEIN 5.3 G/DL (5.7-8.2)
[2022-12-07] MEDS: TIOTROPIUM INHALER/CAPSULE (SPIRIVA) INH SCH (08:00)
[2022-12-07] MEDS: ALBUTEROL SULFATE 2.5MG/0.5ML INH NEB SOLN NEB SCH ×5 (08:01→20:36)
[2022-12-07] MEDS: SYMBICORT 160/4.5MCG INHALER 6GM INH SCH ×3 (08:01→20:58)
[2022-12-07] MEDS: SODIUM CHLORIDE HYPERTONIC 3% 15ML NEB SOL INH SCH ×5 (08:02→20:36)
[2022-12-07] MEDS: LEVEMIR (INSULIN DETEMIR) 1 UNITS/0.01ML SC SCH (08:21)
[2022-12-07] MEDS: ENOXAPARIN 100MG/1ML SYRINGE (J1650 PER 10MG) SC SCH ×2 (08:21→20:58)
[2022-12-07] MEDS: INSULIN LISPRO (NovoLOG) PER UNIT SC SCH ×4 (08:22→21:00)
[2022-12-07] MEDS: PANTOPRAZOLE 40MG TAB (PROTONIX) PO SCH (08:23)
[2022-12-07] MEDS: FUROSEMIDE 40 MG TAB PO SCH (08:23)
[2022-12-07] MEDS: guaiFENesin ER 600 MG TAB PO SCH ×2 (08:23→20:58)
[2022-12-07] MEDS: ASPIRIN 81MG ENTERIC TABLET PO SCH (08:23)
[2022-12-07] MEDS: SODIUM CHLORIDE NASAL 0.65% SPRAY BTL (OCEAN) PRN (09:20)
[2022-12-07] MEDS: fentaNYL 100 MCG/2 ML INJECTION IV PRN (13:14)
[2022-12-07] MEDS ORDERED: methylPREDNISolone 125MG 2ML VIAL IV ONE ×2 (13:45→14:00)
[2022-12-07] MEDS: ACETAMINOPHEN TAB 650MG DOSE (2X325MG) PO PRN (20:58)
[2022-12-07] MEDS: PRAVASTATIN 20 MG TAB PO SCH (21:00)
[2022-12-07] MEDS ORDERED: LEVEMIR (INSULIN DETEMIR) 1 UNITS/0.01ML SC SCH (21:00)
[2022-12-07] MEDS: LATANOPROST 0.005% OPHTH SOLN 2.5 ML OU SCH (22:00)
[2022-12-08] VITALS (36 sets, daily range): BP systolic 117–143; BP diastolic 67–86; O2SAT 82–95
[2022-12-08] MEDS: methylPREDNISolone 125MG 2ML VIAL IV SCH ×3 (04:50→20:03)
[2022-12-08] MEDS: SODIUM CHLORIDE NASAL 0.65% SPRAY BTL (OCEAN) PRN ×2 (04:59→17:00)
[2022-12-08 05:19] LABS: HEMATOCRIT 44.9 % (42.0-52.0); HEMOGLOBIN 12.5 g/dl (13.5-17.5); MEAN CORPUSCULAR HEMOGLOBIN 24.6 pg (27.0-33.0); MEAN CORPUSCULAR HGB CONC 27.8 g/dl (32.0-36.5); MEAN CORPUSCULAR VOLUME 88.4 fl (80.0-96.0); PLATELET COUNT, AUTOMATED 273 10^3/uL (150-450); RED BLOOD COUNT 5.08 10^6/uL (4.30-6.10); WHITE BLOOD COUNT 12.4 10^3/uL (4.0-10.0)
[2022-12-08 05:45] LABS: ALBUMIN 2.8 G/DL (3.2-5.2); ALKALINE PHOSPHATASE 58 U/L (46-116); ALT/SGPT 19 U/L (7.0-40); AST/SGOT 14 U/L (<34); BILIRUBIN,TOTAL 0.5 MG/DL (0.3-1.2); BLOOD UREA NITROGEN 38 MG/DL (9-23); CALCIUM LEVEL 8.3 MG/DL (8.3-10.6); CARBON DIOXIDE LEVEL 40 MMOL/L (20-31); CHLORIDE LEVEL 100 MMOL/L (98-107); GLOMERULAR FILTRATION RATE > 60.0 (>42); GLUCOSE, FASTING 208 MG/DL (74-106); POTASSIUM SERUM 4.5 MMOL/L (3.5-5.1); SODIUM LEVEL 144 MMOL/L (136-145); TOTAL PROTEIN 5.4 G/DL (5.7-8.2)
[2022-12-08] MEDS: ALBUTEROL SULFATE 2.5MG/0.5ML INH NEB SOLN NEB SCH ×4 (07:39→20:17)
[2022-12-08] MEDS: TIOTROPIUM INHALER/CAPSULE (SPIRIVA) INH SCH (07:39)
[2022-12-08] MEDS: SYMBICORT 160/4.5MCG INHALER 6GM INH SCH ×2 (07:39→20:17)
[2022-12-08] MEDS: SODIUM CHLORIDE HYPERTONIC 3% 15ML NEB SOL INH SCH ×5 (07:39→20:21)
[2022-12-08] MEDS: ENOXAPARIN 100MG/1ML SYRINGE (J1650 PER 10MG) SC SCH ×2 (08:12→20:02)
[2022-12-08] MEDS: INSULIN LISPRO (NovoLOG) PER UNIT SC SCH ×4 (08:12→20:03)
[2022-12-08] MEDS: guaiFENesin ER 600 MG TAB PO SCH ×2 (08:13→20:03)
[2022-12-08] MEDS: ASPIRIN 81MG ENTERIC TABLET PO SCH (08:13)
[2022-12-08] MEDS: LEVEMIR (INSULIN DETEMIR) 1 UNITS/0.01ML SC SCH ×2 (08:13→20:02)
[2022-12-08] MEDS: PANTOPRAZOLE 40MG TAB (PROTONIX) PO SCH (08:13)
[2022-12-08] MEDS: FUROSEMIDE 40 MG TAB PO SCH (08:14)
[2022-12-08] MEDS ORDERED: LEVEMIR (INSULIN DETEMIR) 1 UNITS/0.01ML SC SCH (09:00)
[2022-12-08] MEDS: fentaNYL 100 MCG/2 ML INJECTION IV PRN (11:42)
[2022-12-08] MEDS: LATANOPROST 0.005% OPHTH SOLN 2.5 ML OU SCH (20:02)
[2022-12-08] MEDS: PRAVASTATIN 20 MG TAB PO SCH (20:03)
[2022-12-08] MEDS: ACETAMINOPHEN TAB 650MG DOSE (2X325MG) PO PRN (20:08)
[2022-12-08] MEDS: LEVALBUTEROL 1.25MG 0.5ML CONCENTRATE NEB NEB PRN (21:51)
[2022-12-09] VITALS (12 sets, daily range): BP systolic 129–137; BP diastolic 62–73; O2SAT 91–95
[2022-12-09] MEDS: SODIUM CHLORIDE NASAL 0.65% SPRAY BTL (OCEAN) PRN ×2 (00:05→08:23)
[2022-12-09] MEDS: CALCIUM CARBONATE 500 MG CHEW U/D PO PRN (02:57)
[2022-12-09] MEDS: methylPREDNISolone 125MG 2ML VIAL IV SCH ×3 (03:11→20:03)
[2022-12-09 05:40] LABS: HEMATOCRIT 42.6 % (42.0-52.0); MEAN CORPUSCULAR HEMOGLOBIN 25.1 pg (27.0-33.0); MEAN CORPUSCULAR HGB CONC 28.2 g/dl (32.0-36.5); MEAN CORPUSCULAR VOLUME 88.9 fl (80.0-96.0); PLATELET COUNT, AUTOMATED 251 10^3/uL (150-450); RED BLOOD COUNT 4.79 10^6/uL (4.30-6.10); WHITE BLOOD COUNT 15.1 10^3/uL (4.0-10.0)
[2022-12-09 06:09] LABS: ALBUMIN 2.6 G/DL (3.2-5.2); ALKALINE PHOSPHATASE 56 U/L (46-116); ALT/SGPT 21 U/L (7.0-40); AST/SGOT 16 U/L (<34); BILIRUBIN,TOTAL 0.5 MG/DL (0.3-1.2); BLOOD UREA NITROGEN 39 MG/DL (9-23); CALCIUM LEVEL 8.1 MG/DL (8.3-10.6); CARBON DIOXIDE LEVEL > 40.0 MMOL/L (20-31); CHLORIDE LEVEL 97 MMOL/L (98-107); CREATININE FOR GFR 0.45 MG/DL (0.70-1.30); GLOMERULAR FILTRATION RATE > 60.0 (>42); GLUCOSE, FASTING 165 MG/DL (74-106); POTASSIUM SERUM 4.6 MMOL/L (3.5-5.1); SODIUM LEVEL 140 MMOL/L (136-145); TOTAL PROTEIN 5.2 G/DL (5.7-8.2)
[2022-12-09] MEDS: ALBUTEROL SULFATE 2.5MG/0.5ML INH NEB SOLN NEB SCH ×4 (08:01→20:00)
[2022-12-09] MEDS: TIOTROPIUM INHALER/CAPSULE (SPIRIVA) INH SCH (08:01)
[2022-12-09] MEDS: SYMBICORT 160/4.5MCG INHALER 6GM INH SCH ×2 (08:01→20:08)
[2022-12-09] MEDS: SODIUM CHLORIDE HYPERTONIC 3% 15ML NEB SOL INH SCH ×4 (08:02→20:00)
[2022-12-09] MEDS: ENOXAPARIN 100MG/1ML SYRINGE (J1650 PER 10MG) SC SCH ×2 (08:24→20:03)
[2022-12-09] MEDS: PANTOPRAZOLE 40MG TAB (PROTONIX) PO SCH (08:24)
[2022-12-09] MEDS: guaiFENesin ER 600 MG TAB PO SCH ×2 (08:25→20:04)
[2022-12-09] MEDS: FUROSEMIDE 40 MG TAB PO SCH (08:25)
[2022-12-09] MEDS: ASPIRIN 81MG ENTERIC TABLET PO SCH (08:25)
[2022-12-09] MEDS: ACETAMINOPHEN TAB 650MG DOSE (2X325MG) PO PRN ×2 (08:25→20:04)
[2022-12-09] MEDS: LEVEMIR (INSULIN DETEMIR) 1 UNITS/0.01ML SC SCH ×2 (08:26→20:02)
[2022-12-09] MEDS: INSULIN LISPRO (NovoLOG) PER UNIT SC SCH ×4 (08:27→20:04)
[2022-12-09] MEDS: LATANOPROST 0.005% OPHTH SOLN 2.5 ML OU SCH (20:02)
[2022-12-09] MEDS: PRAVASTATIN 20 MG TAB PO SCH (20:04)
[2022-12-10] VITALS (19 sets, daily range): BP systolic 114–134; BP diastolic 59–69; O2SAT 88–93
[2022-12-10] MEDS: methylPREDNISolone 125MG 2ML VIAL IV SCH ×3 (03:09→21:18)
[2022-12-10 05:08] LABS: HEMATOCRIT 41.1 % (42.0-52.0); HEMOGLOBIN 11.5 g/dl (13.5-17.5); MEAN CORPUSCULAR HEMOGLOBIN 24.9 pg (27.0-33.0); PLATELET COUNT, AUTOMATED 241 10^3/uL (150-450); RED BLOOD COUNT 4.62 10^6/uL (4.30-6.10); WHITE BLOOD COUNT 18.6 10^3/uL (4.0-10.0)
[2022-12-10 05:37] LABS: ALBUMIN 2.6 G/DL (3.2-5.2); ALKALINE PHOSPHATASE 53 U/L (46-116); ALT/SGPT 26 U/L (7.0-40); AST/SGOT 16 U/L (<34); BILIRUBIN,TOTAL 0.5 MG/DL (0.3-1.2); BLOOD UREA NITROGEN 38 MG/DL (9-23); CALCIUM LEVEL 8.4 MG/DL (8.3-10.6); CARBON DIOXIDE LEVEL 39 MMOL/L (20-31); CHLORIDE LEVEL 100 MMOL/L (98-107); CREATININE FOR GFR 0.47 MG/DL (0.70-1.30); GLOMERULAR FILTRATION RATE > 60.0 (>42); GLUCOSE, FASTING 164 MG/DL (74-106); POTASSIUM SERUM 4.8 MMOL/L (3.5-5.1); SODIUM LEVEL 141 MMOL/L (136-145); TOTAL PROTEIN 4.8 G/DL (5.7-8.2)
[2022-12-10] MEDS: SODIUM CHLORIDE HYPERTONIC 3% 15ML NEB SOL INH SCH ×4 (08:00→19:25)
[2022-12-10] MEDS: ALBUTEROL SULFATE 2.5MG/0.5ML INH NEB SOLN NEB SCH ×4 (08:00→19:25)
[2022-12-10] MEDS: FUROSEMIDE 40 MG TAB PO SCH (08:38)
[2022-12-10] MEDS: guaiFENesin ER 600 MG TAB PO SCH ×2 (08:38→21:19)
[2022-12-10] MEDS: ENOXAPARIN 100MG/1ML SYRINGE (J1650 PER 10MG) SC SCH ×2 (08:38→21:20)
[2022-12-10] MEDS: PANTOPRAZOLE 40MG TAB (PROTONIX) PO SCH (08:38)
[2022-12-10] MEDS: ASPIRIN 81MG ENTERIC TABLET PO SCH (08:38)
[2022-12-10] MEDS: INSULIN LISPRO (NovoLOG) PER UNIT SC SCH ×4 (08:39→21:19)
[2022-12-10] MEDS: LEVEMIR (INSULIN DETEMIR) 1 UNITS/0.01ML SC SCH ×2 (08:39→21:19)
[2022-12-10] MEDS: TIOTROPIUM INHALER/CAPSULE (SPIRIVA) INH SCH (08:42)
[2022-12-10] MEDS: SYMBICORT 160/4.5MCG INHALER 6GM INH SCH ×2 (08:42→19:25)
[2022-12-10 10:19] LABS: ABG HCO3 36.9 MEQ/L (22.0-26.0); ABG O2 SATURATION 89.6 % (95.0-99.0); ABG PARTIAL PRESSURE CO2 53.9 mmHg (35.0-45.0); ABG STANDARD HCO3 34.6 MEQ/L (22.0-26.0); ABG TOTAL CO2 38.5 MEQ/L (23.0-31.0); ABG pH (ARTERIAL) 7.453 UNITS (7.350-7.450)
[2022-12-10] MEDS: NYSTATIN 100,000 UNITS/GM TOPICAL PWD 15GM TOP SCH ×2 (10:52→21:18)
[2022-12-10] MEDS: DIMETHICONE 2% OINTMENT(VANICREAM) 70GM TUBE TOP PRN (10:53)
[2022-12-10] MEDS: PIPERACILLIN/TAZOBACTAM SOD 3.375 GM in D5W MINI-BAG PLUS 50 ML IV SCH ×3 (12:41→23:27)
[2022-12-10] MEDS: CALCIUM CARBONATE 500 MG CHEW U/D PO PRN (15:22)
[2022-12-10] MEDS: LATANOPROST 0.005% OPHTH SOLN 2.5 ML OU SCH (21:18)
[2022-12-10] MEDS: PRAVASTATIN 20 MG TAB PO SCH (21:19)
[2022-12-11] VITALS (18 sets, daily range): BP systolic 113–141; BP diastolic 59–80; O2SAT 87–96
[2022-12-11] MEDS: methylPREDNISolone 125MG 2ML VIAL IV SCH ×3 (03:51→20:23)
[2022-12-11] MEDS: PIPERACILLIN/TAZOBACTAM SOD 3.375 GM in D5W MINI-BAG PLUS 50 ML IV SCH ×3 (05:50→17:58)
[2022-12-11] MEDS: ALBUTEROL SULFATE 2.5MG/0.5ML INH NEB SOLN NEB SCH ×4 (08:00→19:43)
[2022-12-11] MEDS: SODIUM CHLORIDE HYPERTONIC 3% 15ML NEB SOL INH SCH ×4 (08:00→19:43)
[2022-12-11] MEDS: TIOTROPIUM INHALER/CAPSULE (SPIRIVA) INH SCH (08:01)
[2022-12-11] MEDS: SYMBICORT 160/4.5MCG INHALER 6GM INH SCH ×2 (08:01→19:43)
[2022-12-11] MEDS: ENOXAPARIN 100MG/1ML SYRINGE (J1650 PER 10MG) SC SCH ×2 (08:05→20:24)
[2022-12-11] MEDS: guaiFENesin ER 600 MG TAB PO SCH ×2 (08:06→20:24)
[2022-12-11] MEDS: FUROSEMIDE 40 MG TAB PO SCH (08:06)
[2022-12-11] MEDS: PANTOPRAZOLE 40MG TAB (PROTONIX) PO SCH (08:06)
[2022-12-11] MEDS: CALCIUM CARBONATE 500 MG CHEW U/D PO PRN ×2 (08:06→10:46)
[2022-12-11] MEDS: ASPIRIN 81MG ENTERIC TABLET PO SCH (08:06)
[2022-12-11] MEDS: LEVEMIR (INSULIN DETEMIR) 1 UNITS/0.01ML SC SCH ×2 (08:07→20:22)
[2022-12-11] MEDS: INSULIN LISPRO (NovoLOG) PER UNIT SC SCH ×4 (08:07→20:23)
[2022-12-11] MEDS: NYSTATIN 100,000 UNITS/GM TOPICAL PWD 15GM TOP SCH ×2 (08:08→20:28)
[2022-12-11 08:39] LABS: HEMATOCRIT 40.2 % (42.0-52.0); HEMOGLOBIN 11.3 g/dl (13.5-17.5); MEAN CORPUSCULAR HEMOGLOBIN 24.8 pg (27.0-33.0); MEAN CORPUSCULAR HGB CONC 28.1 g/dl (32.0-36.5); MEAN CORPUSCULAR VOLUME 88.2 fl (80.0-96.0); PLATELET COUNT, AUTOMATED 236 10^3/uL (150-450); RED BLOOD COUNT 4.56 10^6/uL (4.30-6.10); WHITE BLOOD COUNT 22.4 10^3/uL (4.0-10.0)
[2022-12-11 09:09] LABS: ALBUMIN 2.6 G/DL (3.2-5.2); ALKALINE PHOSPHATASE 52 U/L (46-116); ALT/SGPT 29 U/L (7.0-40); AST/SGOT 17 U/L (<34); BILIRUBIN,TOTAL 0.7 MG/DL (0.3-1.2); BLOOD UREA NITROGEN 35 MG/DL (9-23); CARBON DIOXIDE LEVEL 39 MMOL/L (20-31); CHLORIDE LEVEL 97 MMOL/L (98-107); CREATININE FOR GFR 0.49 MG/DL (0.70-1.30); GLOMERULAR FILTRATION RATE > 60.0 (>42); GLUCOSE, FASTING 138 MG/DL (74-106); POTASSIUM SERUM 4.4 MMOL/L (3.5-5.1); SODIUM LEVEL 139 MMOL/L (136-145); TOTAL PROTEIN 5.1 G/DL (5.7-8.2)
[2022-12-11] MEDS: fentaNYL 100 MCG/2 ML INJECTION IV PRN (13:15)
[2022-12-11] MEDS: DIMETHICONE 2% OINTMENT(VANICREAM) 70GM TUBE TOP PRN (15:38)
[2022-12-11] MEDS ORDERED: SIMETHICONE 80MG CHEW TAB PO PRN (17:45)
[2022-12-11] MEDS: PRAVASTATIN 20 MG TAB PO SCH (20:23)
[2022-12-11] MEDS: ACETAMINOPHEN TAB 650MG DOSE (2X325MG) PO PRN (20:29)
[2022-12-11] MEDS: LATANOPROST 0.005% OPHTH SOLN 2.5 ML OU SCH (20:29)
[2022-12-12] VITALS (159 sets, daily range): BP systolic 48–166; BP diastolic 29–89; O2SAT 99
[2022-12-12] MEDS: PIPERACILLIN/TAZOBACTAM SOD 3.375 GM in D5W MINI-BAG PLUS 50 ML IV SCH ×5 (00:33→23:44)
[2022-12-12] MEDS: LEVALBUTEROL 1.25MG 0.5ML CONCENTRATE NEB NEB PRN (01:06)
[2022-12-12] MEDS: ACETAMINOPHEN TAB 650MG DOSE (2X325MG) PO PRN (02:32)
[2022-12-12] MEDS: CALCIUM CARBONATE 500 MG CHEW U/D PO PRN (02:33)
[2022-12-12] MEDS ORDERED: oxyBUTYnin 5 MG TAB PO PRN (03:15)
[2022-12-12] MEDS: methylPREDNISolone 125MG 2ML VIAL IV SCH (04:38)
[2022-12-12 05:03] LABS: HEMATOCRIT 35.2 % (42.0-52.0); HEMOGLOBIN 9.9 g/dl (13.5-17.5); MEAN CORPUSCULAR HEMOGLOBIN 24.8 pg (27.0-33.0); MEAN CORPUSCULAR HGB CONC 28.1 g/dl (32.0-36.5); PLATELET COUNT, AUTOMATED 247 10^3/uL (150-450)
[2022-12-12 05:11] LABS: WHITE BLOOD COUNT 33.3 10^3/uL (4.0-10.0)
[2022-12-12 05:55] LABS: ALBUMIN 2.6 G/DL (3.2-5.2); ALKALINE PHOSPHATASE 58 U/L (46-116); ALT/SGPT 400 U/L (7.0-40); AST/SGOT 207 U/L (<34); BILIRUBIN,TOTAL 1.1 MG/DL (0.3-1.2); BLOOD UREA NITROGEN 63 MG/DL (9-23); CARBON DIOXIDE LEVEL 32 MMOL/L (20-31); CHLORIDE LEVEL 92 MMOL/L (98-107); CREATININE FOR GFR 1.11 MG/DL (0.70-1.30); GLOMERULAR FILTRATION RATE > 60.0 (>42); GLUCOSE, FASTING 363 MG/DL (74-106); POTASSIUM SERUM 5.5 MMOL/L (3.5-5.1); SODIUM LEVEL 136 MMOL/L (136-145); TOTAL PROTEIN 5.1 G/DL (5.7-8.2)
[2022-12-12] MEDS ORDERED: SODIUM CHLORIDE 0.9% 1000ML IV ONE (06:10)
[2022-12-12] MEDS ORDERED: DEXTROSE 50% 50ML SYRINGE IV STA (06:30)
[2022-12-12] MEDS ORDERED: CALCIUM GLUCONATE 1,000 MG in D5W MINI-BAG PLUS 100 ML IV ONE ×2 (06:30→07:20)
[2022-12-12] MEDS ORDERED: HumuLIN R (REGULAR) INSULIN (NovoLIN R) **100U/ML** PER UNIT IV STA ×2 (06:30→22:01)
[2022-12-12] MEDS ORDERED: SOD POLYSTYRENE SULFONATE SUSP 15GM 60ML UD PO ONE (07:00)
[2022-12-12] MEDS ORDERED: NS 1,000 ML IV SCH (07:20)
[2022-12-12] MEDS ORDERED: MIDODRINE 5 MG TAB PO ONE (07:20)
[2022-12-12 07:50] LABS: ABG BASE EXCESS -1.1 (-2.0-2.0); ABG HCO3 25.6 MEQ/L (22.0-26.0); ABG O2 SATURATION 91.5 % (95.0-99.0); ABG PARTIAL PRESSURE CO2 53.5 mmHg (35.0-45.0); ABG PARTIAL PRESSURE O2 77.1 mmHg (75.0-100.0); ABG STANDARD HCO3 23.5 MEQ/L (22.0-26.0); ABG TOTAL CO2 27.2 MEQ/L (23.0-31.0); ABG pH (ARTERIAL) 7.297 UNITS (7.350-7.450)
[2022-12-12] MEDS: TIOTROPIUM INHALER/CAPSULE (SPIRIVA) INH SCH (08:00)
[2022-12-12] MEDS: SYMBICORT 160/4.5MCG INHALER 6GM INH SCH (08:00)
[2022-12-12 08:06] LABS: HEMATOCRIT 24.5 % (42.0-52.0); HEMOGLOBIN 7.1 g/dl (13.5-17.5); MEAN CORPUSCULAR VOLUME 89.7 fl (80.0-96.0); PLATELET COUNT, AUTOMATED 169 10^3/uL (150-450); RED BLOOD COUNT 2.73 10^6/uL (4.30-6.10)
[2022-12-12 08:13] LABS: WHITE BLOOD COUNT 33.7 10^3/uL (4.0-10.0)
[2022-12-12] MEDS: SODIUM CHLORIDE HYPERTONIC 3% 15ML NEB SOL INH SCH (08:32)
[2022-12-12] MEDS: ALBUTEROL SULFATE 2.5MG/0.5ML INH NEB SOLN NEB SCH (08:32)
[2022-12-12 08:45] LABS: C REACTIVE PROTEIN QUANTITATIV < 0.40 MG/DL (<1.0)
[2022-12-12 08:46] LABS: CPK CREATINE PHOSPHOKINASE 66 U/L (46-171)
[2022-12-12] MEDS ORDERED: MIDAZOLAM 5MG/ML 1ML VIAL As Ordered ONE (08:56)
[2022-12-12] MEDS ORDERED: LEVEMIR (INSULIN DETEMIR) 1 UNITS/0.01ML SC SCH (09:00)
[2022-12-12] MEDS ORDERED: PATIROMER SORBITEX CALCIUM 8.4 GM POWDER PACKET (VELTASSA) PO ONE (09:00)
[2022-12-12] MEDS: ASPIRIN 81MG ENTERIC TABLET PO SCH (09:00)
[2022-12-12] MEDS: NYSTATIN 100,000 UNITS/GM TOPICAL PWD 15GM TOP SCH ×2 (09:00→20:32)
[2022-12-12] MEDS: guaiFENesin ER 600 MG TAB PO SCH (09:00)
[2022-12-12] MEDS: PANTOPRAZOLE 40MG TAB (PROTONIX) PO SCH (09:00)
[2022-12-12 09:04] LABS: ALBUMIN 1.7 G/DL (3.2-5.2); ALKALINE PHOSPHATASE 42 U/L (46-116); ALT/SGPT 1814 U/L (7.0-40); AST/SGOT 1057 U/L (<34); BILIRUBIN,TOTAL 0.7 MG/DL (0.3-1.2); BLOOD UREA NITROGEN 66 MG/DL (9-23); CALCIUM LEVEL 6.5 MG/DL (8.3-10.6); CARBON DIOXIDE LEVEL 30 MMOL/L (20-31); CHLORIDE LEVEL 98 MMOL/L (98-107); CREATININE FOR GFR 1.27 MG/DL (0.70-1.30); GLOMERULAR FILTRATION RATE 58.4 (>42); GLUCOSE, FASTING 301 MG/DL (74-106); MB/CK RELATIVE INDEX 1.51 (< OR =4); POTASSIUM SERUM 4.6 MMOL/L (3.5-5.1); SODIUM LEVEL 139 MMOL/L (136-145); TOTAL PROTEIN 3.5 G/DL (5.7-8.2)
[2022-12-12] MEDS ORDERED: HYDROCORTISONE 100MG/2ML VIAL As Ordered ONE (09:06)
[2022-12-12] MEDS: HYDROCORTISONE 100MG/2ML VIAL IV SCH ×3 (09:07→20:26)
[2022-12-12] MEDS ORDERED: VASOPRESSIN INJ 20UNITS/ML 1ML VIAL As Ordered ONE (09:08)
[2022-12-12] MEDS ORDERED: MIDAZOLAM INJ 2MG/2ML VIAL As Ordered ONE (09:37)
[2022-12-12] MEDS ORDERED: MIDAZOLAM INJ 2MG/2ML VIAL IV STA (09:38)
[2022-12-12] MEDS ORDERED: FENTANYL DRIP LOCK BOX KEY 1 EACH XX PRN (09:40)
[2022-12-12] MEDS ORDERED: fentaNYL CITRATE/NaCl 1,000 MCG in IV 1 EA IV SCH (09:40)
[2022-12-12] MEDS ORDERED: fentaNYL 100 MCG/2 ML INJECTION As Ordered ONE (10:14)
[2022-12-12 10:15] LABS: ABG BASE EXCESS -1.9 (-2.0-2.0); ABG HCO3 26.1 MEQ/L (22.0-26.0); ABG O2 SATURATION 91.6 % (95.0-99.0); ABG PARTIAL PRESSURE O2 80.4 mmHg (75.0-100.0); ABG STANDARD HCO3 22.8 MEQ/L (22.0-26.0); ABG TOTAL CO2 28.1 MEQ/L (23.0-31.0)
[2022-12-12] MEDS: VANCOMYCIN HCL 1,000 MG, VIAL MATE ADAPTER 1 EACH in NS 250 ML IV ONE ×4 (10:15→13:49)
[2022-12-12 10:18] LABS: ABG pH (ARTERIAL) 7.222 UNITS (7.350-7.450)
[2022-12-12] MEDS: fentaNYL 100 MCG/2 ML INJECTION IV PRN ×2 (10:18→10:47)
[2022-12-12] MEDS: MIDAZOLAM 100MG/100ML-0.9%NACL 100 MG in IV 1 EA IV SCH (10:45)
[2022-12-12] MEDS ORDERED: propofoL 1,000 MG in IV 1 EA IV SCH (11:00)
[2022-12-12] MEDS ORDERED: PROPOFOL 1,000 MG/100 ML VIAL As Ordered ONE (11:02)
[2022-12-12] MEDS: propofoL 1,000 MG in IV 1 EA IV SCH ×2 (11:20→23:05)
[2022-12-12] MEDS: VASOPRESSIN INJ 20 UNITS in NS 499 ML IV SCH ×2 (11:21→17:29)
[2022-12-12] MEDS: NOREPINEPHRINE 4MG IN D5 250ML 4 MG in IV 1 EA IV SCH ×6 (11:21→20:29)
[2022-12-12] MEDS: PANTOPRAZOLE 40MG VIAL IV SCH (11:21)
[2022-12-12 13:28] LABS: BASO # 0.1 10^3/uL (0.0-0.2); BASO % 0.3 % (0.0-1.0); HEMATOCRIT 29.2 % (42.0-52.0); HEMOGLOBIN 8.6 g/dl (13.5-17.5); LYMPH # 0.3 10^3/uL (1.5-5.0); LYMPH % 0.5 % (24.0-44.0); MEAN CORPUSCULAR HEMOGLOBIN 26.5 pg (27.0-33.0); MEAN CORPUSCULAR HGB CONC 29.5 g/dl (32.0-36.5); MEAN CORPUSCULAR VOLUME 90.1 fl (80.0-96.0); MONO % 5.1 % (2.0-8.0); NEUTROPHILS # 48.6 10^3/uL (1.5-8.5); NEUTROPHILS % 90.8 % (36.0-66.0); PLATELET COUNT, AUTOMATED 150 10^3/uL (150-450); RED BLOOD COUNT 3.24 10^6/uL (4.30-6.10)
[2022-12-12] MEDS: INSULIN LISPRO (NovoLOG) PER UNIT SC SCH ×3 (13:28→23:44)
[2022-12-12] MEDS: IPRATROPIUM 0.5MG/ALBUTEROL 2.5MG INH SOL UD 3ML (DUONEB) NEB SCH ×2 (13:33→20:08)
[2022-12-12 13:35] LABS: MONO # 2.7 10^3/uL (0.0-0.8); WHITE BLOOD COUNT 53.5 10^3/uL (4.0-10.0)
[2022-12-12 13:46] LABS: CALCIUM LEVEL 6.1 MG/DL (8.3-10.6); CREATININE FOR GFR 1.26 MG/DL (0.70-1.30); GLOMERULAR FILTRATION RATE 58.9 (>42); MAGNESIUM LEVEL 1.9 MG/DL (1.8-2.4); POTASSIUM SERUM 5.1 MMOL/L (3.5-5.1)
[2022-12-12 13:48] LABS: CK-MB VALUE MASS 2.3 NG/ML (<3.6); MB/CK RELATIVE INDEX 2.03 (< OR =4)
[2022-12-12 15:31] LABS: ABG BASE EXCESS -1.7 (-2.0-2.0); ABG HCO3 25.6 MEQ/L (22.0-26.0); ABG O2 SATURATION 95.9 % (95.0-99.0); ABG PARTIAL PRESSURE CO2 56.8 mmHg (35.0-45.0); ABG PARTIAL PRESSURE O2 96.1 mmHg (75.0-100.0); ABG TOTAL CO2 27.3 MEQ/L (23.0-31.0); ABG pH (ARTERIAL) 7.271 UNITS (7.350-7.450)
[2022-12-12] MEDS ORDERED: PHENYLEPHRINE 10MG/ML 1ML VIAL As Ordered ONE (17:35)
[2022-12-12 17:59] LABS: CALCIUM LEVEL 6.1 MG/DL (8.3-10.6); CREATININE FOR GFR 1.36 MG/DL (0.70-1.30); MAGNESIUM LEVEL 1.9 MG/DL (1.8-2.4); POTASSIUM SERUM 5.1 MMOL/L (3.5-5.1)
[2022-12-12] MEDS ORDERED: PHENYLEPHRINE HCL INJ 50 MG in D5W 495 ML IV SCH (19:35)
[2022-12-12] MEDS: VANCOMYCIN HCL 750 MG, VIAL MATE ADAPTER 1 EACH in NS 250 ML IV SCH (20:29)
[2022-12-12] MEDS: LATANOPROST 0.005% OPHTH SOLN 2.5 ML OU SCH (20:29)
[2022-12-12 20:39] LABS: HEMATOCRIT 31.5 % (42.0-52.0); HEMOGLOBIN 9.5 g/dl (13.5-17.5); MEAN CORPUSCULAR HEMOGLOBIN 27.1 pg (27.0-33.0); MEAN CORPUSCULAR HGB CONC 30.2 g/dl (32.0-36.5); MEAN CORPUSCULAR VOLUME 89.7 fl (80.0-96.0); PLATELET COUNT, AUTOMATED 114 10^3/uL (150-450); RED BLOOD COUNT 3.51 10^6/uL (4.30-6.10)
[2022-12-12 20:40] LABS: WHITE BLOOD COUNT 54.5 10^3/uL (4.0-10.0)
[2022-12-12 20:58] LABS: CALCIUM LEVEL 5.7 MG/DL (8.3-10.6); CREATININE FOR GFR 1.5 MG/DL (0.70-1.30); GLOMERULAR FILTRATION RATE 48.2 (>42); POTASSIUM SERUM 5.4 MMOL/L (3.5-5.1)
[2022-12-12] MEDS: CALCIUM GLUCONATE 1,000 MG in D5W MINI-BAG PLUS 100 ML IV SCH ×2 (22:20→23:44)
[2022-12-12 22:49] LABS: INR 1.94; PROTHROMBIN TIME 22.5 SECONDS (12.5-14.5)
[2022-12-12 22:50] LABS: PARTIAL THROMBOPLASTIN TIME 32.6 SECONDS (24.8-34.2)
[2022-12-12 22:53] LABS: D-DIMER QUANT 421.55 ng/ml (<500)
[2022-12-12] MEDS ORDERED: ETOMIDATE INJ 20MG/10ML VIAL ONE (23:33)
[2022-12-12] MEDS ORDERED: ROCURONIUM BROMIDE 50MG/5ML VIAL ONE (23:33)
[2022-12-13] VITALS (100 sets, daily range): BP systolic 81–155; BP diastolic 39–87
[2022-12-13] MEDS: VASOPRESSIN INJ 20 UNITS in NS 499 ML IV SCH ×3 (01:18→18:30)
[2022-12-13] MEDS: MIDAZOLAM 100MG/100ML-0.9%NACL 100 MG in IV 1 EA IV SCH ×2 (01:20→09:40)
[2022-12-13] MEDS: IPRATROPIUM 0.5MG/ALBUTEROL 2.5MG INH SOL UD 3ML (DUONEB) NEB SCH ×4 (01:31→19:20)
[2022-12-13] MEDS: HYDROCORTISONE 100MG/2ML VIAL IV SCH ×4 (03:34→21:59)
[2022-12-13] MEDS: NOREPINEPHRINE 4MG IN D5 250ML 4 MG in IV 1 EA IV SCH ×10 (03:35→22:46)
[2022-12-13] MEDS: LEVALBUTEROL 1.25MG 0.5ML CONCENTRATE NEB NEB PRN (03:57)
[2022-12-13 04:05] LABS: HEMATOCRIT 30.6 % (42.0-52.0); HEMOGLOBIN 9.3 g/dl (13.5-17.5); MEAN CORPUSCULAR HGB CONC 30.4 g/dl (32.0-36.5); MEAN CORPUSCULAR VOLUME 88.7 fl (80.0-96.0); PLATELET COUNT, AUTOMATED 101 10^3/uL (150-450); RED BLOOD COUNT 3.45 10^6/uL (4.30-6.10)
[2022-12-13 04:22] LABS: WHITE BLOOD COUNT 49.1 10^3/uL (4.0-10.0)
[2022-12-13 05:25] LABS: BASO # 0.1 10^3/uL (0.0-0.2); BASO % 0.2 % (0.0-1.0); HEMATOCRIT 30.7 % (42.0-52.0); HEMOGLOBIN 9.3 g/dl (13.5-17.5); LYMPH # 0.3 10^3/uL (1.5-5.0); LYMPH % 0.5 % (24.0-44.0); MEAN CORPUSCULAR HGB CONC 30.3 g/dl (32.0-36.5); MONO # 1.5 10^3/uL (0.0-0.8); MONO % 3.2 % (2.0-8.0); NEUTROPHILS # 44.9 10^3/uL (1.5-8.5); NEUTROPHILS % 93.2 % (36.0-66.0); PLATELET COUNT, AUTOMATED 102 10^3/uL (150-450); RED BLOOD COUNT 3.45 10^6/uL (4.30-6.10)
[2022-12-13 05:26] LABS: WHITE BLOOD COUNT 48.2 10^3/uL (4.0-10.0)
[2022-12-13 05:56] LABS: ABG BASE EXCESS -6.2 (-2.0-2.0); ABG HCO3 22.2 MEQ/L (22.0-26.0); ABG O2 SATURATION 95.4 % (95.0-99.0); ABG PARTIAL PRESSURE O2 92.1 mmHg (75.0-100.0); ABG STANDARD HCO3 19.3 MEQ/L (22.0-26.0)
[2022-12-13 06:05] LABS: ABG pH (ARTERIAL) 7.193 UNITS (7.350-7.450)
[2022-12-13 06:07] LABS: ALBUMIN 2.1 G/DL (3.2-5.2); BILIRUBIN,TOTAL 0.8 MG/DL (0.3-1.2); CALCIUM LEVEL 5.7 MG/DL (8.3-10.6); CREATININE FOR GFR 1.93 MG/DL (0.70-1.30); MAGNESIUM LEVEL 1.8 MG/DL (1.8-2.4); POTASSIUM SERUM 5.7 MMOL/L (3.5-5.1); TOTAL PROTEIN 3.9 G/DL (5.7-8.2)
[2022-12-13] MEDS: INSULIN LISPRO (NovoLOG) PER UNIT SC SCH (06:32)
[2022-12-13] MEDS: PIPERACILLIN/TAZOBACTAM SOD 3.375 GM in D5W MINI-BAG PLUS 50 ML IV SCH ×3 (06:33→18:07)
[2022-12-13] MEDS: CALCIUM GLUCONATE 1,000 MG in D5W MINI-BAG PLUS 100 ML IV SCH ×2 (07:49→07:50)
[2022-12-13] MEDS ORDERED: LEVEMIR (INSULIN DETEMIR) 1 UNITS/0.01ML SC SCH (09:00)
[2022-12-13] MEDS: VANCOMYCIN HCL 750 MG, VIAL MATE ADAPTER 1 EACH in NS 250 ML IV SCH (09:02)
[2022-12-13] MEDS: PANTOPRAZOLE 40MG VIAL IV SCH (09:02)
[2022-12-13 09:29] LABS: HEMATOCRIT 27.9 % (42.0-52.0); HEMOGLOBIN 8.4 g/dl (13.5-17.5); MEAN CORPUSCULAR HEMOGLOBIN 26.9 pg (27.0-33.0); MEAN CORPUSCULAR HGB CONC 30.1 g/dl (32.0-36.5); MEAN CORPUSCULAR VOLUME 89.4 fl (80.0-96.0); RED BLOOD COUNT 3.12 10^6/uL (4.30-6.10)
[2022-12-13 09:37] LABS: INR 1.78
[2022-12-13 09:38] LABS: PARTIAL THROMBOPLASTIN TIME 32.7 SECONDS (24.8-34.2)
[2022-12-13 09:41] LABS: D-DIMER QUANT 342.25 ng/ml (<500)
[2022-12-13] MEDS ORDERED: FUROSEMIDE 100MG/10ML VIAL IV ONE (10:00)
[2022-12-13 10:39] LABS: WHITE BLOOD COUNT 40.5 10^3/uL (4.0-10.0)
[2022-12-13 10:40] LABS: PLATELET COUNT, AUTOMATED 85 10^3/uL (150-450)
[2022-12-13 10:57] LABS: ABG BASE EXCESS -4.9 (-2.0-2.0); ABG O2 SATURATION 97.7 % (95.0-99.0); ABG PARTIAL PRESSURE CO2 49.5 mmHg (35.0-45.0); ABG PARTIAL PRESSURE O2 108.3 mmHg (75.0-100.0); ABG STANDARD HCO3 20.4 MEQ/L (22.0-26.0); ABG TOTAL CO2 23.5 MEQ/L (23.0-31.0); ABG pH (ARTERIAL) 7.266 UNITS (7.350-7.450)
[2022-12-13] MEDS ORDERED: CALCIUM GLUCONATE 1,000 MG in D5W MINI-BAG PLUS 100 ML IV ONE ×2 (11:00→17:00)
[2022-12-13] MEDS: propofoL 1,000 MG in IV 1 EA IV SCH ×2 (11:05→23:05)
[2022-12-13] MEDS: INSULIN REGULAR IN 0.9 % NACL 100 UNIT in IV 1 EA IV SCH ×2 (11:18)
[2022-12-13] MEDS: INSULIN IV RATE CHANGE DOCUMENTATION ML/HR XX SCH ×4 (13:08→18:02)
[2022-12-13 13:19] LABS: CALCIUM LEVEL 5.5 MG/DL (8.3-10.6); CREATININE FOR GFR 2.24 MG/DL (0.70-1.30); GLOMERULAR FILTRATION RATE 30.3 (>42); POTASSIUM SERUM 5.5 MMOL/L (3.5-5.1)
[2022-12-13 15:53] LABS: ABG BASE EXCESS -3.3 (-2.0-2.0); ABG HCO3 23.2 MEQ/L (22.0-26.0); ABG O2 SATURATION 97.7 % (95.0-99.0); ABG PARTIAL PRESSURE CO2 49.2 mmHg (35.0-45.0); ABG PARTIAL PRESSURE O2 110.5 mmHg (75.0-100.0); ABG STANDARD HCO3 21.7 MEQ/L (22.0-26.0); ABG TOTAL CO2 24.7 MEQ/L (23.0-31.0); ABG pH (ARTERIAL) 7.291 UNITS (7.350-7.450)
[2022-12-13] MEDS ORDERED: FUROSEMIDE 100MG/10ML VIAL IV STA (16:00)
[2022-12-13] MEDS: NYSTATIN 100,000 UNITS/GM TOPICAL PWD 15GM TOP SCH ×2 (16:27→22:00)
[2022-12-13 16:37] LABS: HEMATOCRIT 22.3 % (42.0-52.0); MEAN CORPUSCULAR HEMOGLOBIN 27.5 pg (27.0-33.0); MEAN CORPUSCULAR HGB CONC 31.4 g/dl (32.0-36.5); MEAN CORPUSCULAR VOLUME 87.5 fl (80.0-96.0); RED BLOOD COUNT 2.55 10^6/uL (4.30-6.10); WHITE BLOOD COUNT 29.8 10^3/uL (4.0-10.0)
[2022-12-13 16:47] LABS: PLATELET COUNT, AUTOMATED 61 10^3/uL (150-450)
[2022-12-13 16:49] LABS: INR 1.54; PROTHROMBIN TIME 18.8 SECONDS (12.5-14.5)
[2022-12-13 16:50] LABS: PARTIAL THROMBOPLASTIN TIME 33.9 SECONDS (24.8-34.2)
[2022-12-13 16:56] LABS: CALCIUM LEVEL 5.4 MG/DL (8.3-10.6); CREATININE FOR GFR 2.39 MG/DL (0.70-1.30); GLOMERULAR FILTRATION RATE 28.1 (>42); POTASSIUM SERUM 5.3 MMOL/L (3.5-5.1)
[2022-12-13] MEDS: VANCOMYCIN HCL 750 MG, VIAL MATE ADAPTER 1 EACH in D5W 250 ML IV SCH (20:07)
[2022-12-13 20:26] LABS: ABG BASE EXCESS -2.8 (-2.0-2.0); ABG HCO3 22.5 MEQ/L (22.0-26.0); ABG O2 SATURATION 99.3 % (95.0-99.0); ABG PARTIAL PRESSURE CO2 41.3 mmHg (35.0-45.0); ABG PARTIAL PRESSURE O2 171.6 mmHg (75.0-100.0); ABG STANDARD HCO3 22.1 MEQ/L (22.0-26.0); ABG TOTAL CO2 23.8 MEQ/L (23.0-31.0); ABG pH (ARTERIAL) 7.354 UNITS (7.350-7.450)
[2022-12-13] MEDS: LATANOPROST 0.005% OPHTH SOLN 2.5 ML OU SCH (21:00)
[2022-12-13 21:36] LABS: HEMOGLOBIN 7.4 g/dl (13.5-17.5); MEAN CORPUSCULAR HEMOGLOBIN 27.3 pg (27.0-33.0); MEAN CORPUSCULAR HGB CONC 32.2 g/dl (32.0-36.5); MEAN CORPUSCULAR VOLUME 84.9 fl (80.0-96.0); RED BLOOD COUNT 2.71 10^6/uL (4.30-6.10); WHITE BLOOD COUNT 27.1 10^3/uL (4.0-10.0)
[2022-12-13 21:55] LABS: PLATELET COUNT, AUTOMATED 48 10^3/uL (150-450)
[2022-12-13] MEDS: fentaNYL 100 MCG/2 ML INJECTION IV PRN (21:55)
[2022-12-13 22:01] LABS: CALCIUM LEVEL 5.1 MG/DL (8.3-10.6); CREATININE FOR GFR 2.53 MG/DL (0.70-1.30); GLOMERULAR FILTRATION RATE 26.4 (>42); POTASSIUM SERUM 5.6 MMOL/L (3.5-5.1)
[2022-12-14] VITALS (86 sets, daily range): BP systolic 100–147; BP diastolic 52–74
[2022-12-14] MEDS: PIPERACILLIN/TAZOBACTAM SOD 3.375 GM in D5W MINI-BAG PLUS 50 ML IV SCH ×4 (00:15→18:20)
[2022-12-14] MEDS: IPRATROPIUM 0.5MG/ALBUTEROL 2.5MG INH SOL UD 3ML (DUONEB) NEB SCH ×4 (00:46→19:45)
[2022-12-14] MEDS: fentaNYL 100 MCG/2 ML INJECTION IV PRN ×4 (00:53→20:44)
[2022-12-14] MEDS: VASOPRESSIN INJ 20 UNITS in NS 499 ML IV SCH ×2 (02:30→12:48)
[2022-12-14] MEDS: HYDROCORTISONE 100MG/2ML VIAL IV SCH ×4 (03:00→21:19)
[2022-12-14] MEDS ORDERED: fentaNYL 100 MCG/2 ML INJECTION As Ordered ONE ×2 (04:00→06:45)
[2022-12-14 05:24] LABS: HEMATOCRIT 22.3 % (42.0-52.0); HEMOGLOBIN 7.2 g/dl (13.5-17.5); MEAN CORPUSCULAR VOLUME 84.2 fl (80.0-96.0); RED BLOOD COUNT 2.65 10^6/uL (4.30-6.10); WHITE BLOOD COUNT 24.3 10^3/uL (4.0-10.0)
[2022-12-14 05:25] LABS: MEAN CORPUSCULAR HEMOGLOBIN 27.2 pg (27.0-33.0); MEAN CORPUSCULAR HGB CONC 32.3 g/dl (32.0-36.5); PLATELET COUNT, AUTOMATED 45 10^3/uL (150-450)
[2022-12-14 06:19] LABS: BASO % 0.1 % (0.0-1.0); HEMATOCRIT 22.4 % (42.0-52.0); HEMOGLOBIN 7.3 g/dl (13.5-17.5); LYMPH # 0.3 10^3/uL (1.5-5.0); LYMPH % 1.1 % (24.0-44.0); MEAN CORPUSCULAR HEMOGLOBIN 27.1 pg (27.0-33.0); MEAN CORPUSCULAR HGB CONC 32.6 g/dl (32.0-36.5); MEAN CORPUSCULAR VOLUME 83.3 fl (80.0-96.0); MONO # 0.9 10^3/uL (0.0-0.8); MONO % 3.4 % (2.0-8.0); NEUTROPHILS # 23.4 10^3/uL (1.5-8.5); NEUTROPHILS % 93.8 % (36.0-66.0); RED BLOOD COUNT 2.69 10^6/uL (4.30-6.10)
[2022-12-14 06:24] LABS: PLATELET COUNT, AUTOMATED 42 10^3/uL (150-450)
[2022-12-14] MEDS ORDERED: ZOSYN 3.375GM VIAL As Ordered ONE (06:54)
[2022-12-14] MEDS: MIDAZOLAM 100MG/100ML-0.9%NACL 100 MG in IV 1 EA IV SCH (07:10)
[2022-12-14 07:17] LABS: ALBUMIN 1.9 G/DL (3.2-5.2); BILIRUBIN,TOTAL 1.1 MG/DL (0.3-1.2); CALCIUM LEVEL 5.1 MG/DL (8.3-10.6); CREATININE FOR GFR 2.81 MG/DL (0.70-1.30); GLOMERULAR FILTRATION RATE 23.4 (>42); MAGNESIUM LEVEL 1.7 MG/DL (1.8-2.4); POTASSIUM SERUM 5.9 MMOL/L (3.5-5.1); TOTAL PROTEIN 3.8 G/DL (5.7-8.2)
[2022-12-14 07:19] LABS: BASO % 0.1 % (0.0-1.0); LYMPH % 1.1 % (24.0-44.0); MONO % 3.3 % (2.0-8.0); NEUTROPHILS # 22.8 10^3/uL (1.5-8.5); NEUTROPHILS % 93.7 % (36.0-66.0)
[2022-12-14 07:20] LABS: LYMPH # 0.3 10^3/uL (1.5-5.0); MONO # 0.8 10^3/uL (0.0-0.8)
[2022-12-14] MEDS ORDERED: DEXTROSE 50% 50ML SYRINGE IV STA (07:29)
[2022-12-14] MEDS ORDERED: HumuLIN R (REGULAR) INSULIN (NovoLIN R) **100U/ML** PER UNIT IV STA (07:29)
[2022-12-14] MEDS ORDERED: CALCIUM CHLORIDE 10% 1 GM in D5W 100 ML IV ONE ×2 (08:00→08:05)
[2022-12-14] MEDS: PANTOPRAZOLE 40MG VIAL IV SCH (08:14)
[2022-12-14] MEDS: NYSTATIN 100,000 UNITS/GM TOPICAL PWD 15GM TOP SCH ×2 (08:15→21:20)
[2022-12-14] MEDS ORDERED: PHYTONADIONE INJection 10 MG in NS 50 ML IV ONE (09:00)
[2022-12-14] MEDS ORDERED: PATIROMER SORBITEX CALCIUM 8.4 GM POWDER PACKET (VELTASSA) PO ONE (09:00)
[2022-12-14] MEDS: propofoL 1,000 MG in IV 1 EA IV SCH ×2 (11:05→23:05)
[2022-12-14] MEDS: INSULIN REGULAR IN 0.9 % NACL 100 UNIT in IV 1 EA IV SCH ×2 (11:13)
[2022-12-14 13:15] LABS: HEMOGLOBIN 7.5 g/dl (13.5-17.5); MEAN CORPUSCULAR HEMOGLOBIN 27.4 pg (27.0-33.0); MEAN CORPUSCULAR HGB CONC 32.6 g/dl (32.0-36.5); MEAN CORPUSCULAR VOLUME 83.9 fl (80.0-96.0); RED BLOOD COUNT 2.74 10^6/uL (4.30-6.10)
[2022-12-14 13:41] LABS: PLATELET COUNT, AUTOMATED 34 10^3/uL (150-450)
[2022-12-14 13:57] LABS: ALBUMIN 1.7 G/DL (3.2-5.2); CALCIUM LEVEL 5.4 MG/DL (8.3-10.6); GLOMERULAR FILTRATION RATE 21.7 (>42); MAGNESIUM LEVEL 1.7 MG/DL (1.8-2.4); POTASSIUM SERUM 5.9 MMOL/L (3.5-5.1); TOTAL PROTEIN 3.6 G/DL (5.7-8.2)
[2022-12-14] MEDS: INSULIN IV RATE CHANGE DOCUMENTATION ML/HR XX SCH ×2 (15:51→18:21)
[2022-12-14] MEDS ORDERED: CALCIUM CHLORIDE 10% 1 GM/10 ML SYR IV STA (16:06)
[2022-12-14] MEDS ORDERED: FUROSEMIDE 40MG/4ML VIAL IV ONE (16:10)
[2022-12-14] MEDS: LATANOPROST 0.005% OPHTH SOLN 2.5 ML OU SCH (21:00)
[2022-12-14] MEDS: VANCOMYCIN HCL 750 MG, VIAL MATE ADAPTER 1 EACH in D5W 250 ML IV SCH (21:19)
[2022-12-14] MEDS: NOREPINEPHRINE 4MG IN D5 250ML 4 MG in IV 1 EA IV SCH ×2 (23:00)
[2022-12-15] VITALS (27 sets, daily range): BP systolic 103–133; BP diastolic 58–74
[2022-12-15] MEDS: PIPERACILLIN/TAZOBACTAM SOD 3.375 GM in D5W MINI-BAG PLUS 50 ML IV SCH ×2 (00:23→06:10)
[2022-12-15] MEDS: MIDAZOLAM 100MG/100ML-0.9%NACL 100 MG in IV 1 EA IV SCH (02:13)
[2022-12-15] MEDS: NOREPINEPHRINE 4MG IN D5 250ML 4 MG in IV 1 EA IV SCH ×4 (02:17→07:00)
[2022-12-15] MEDS: IPRATROPIUM 0.5MG/ALBUTEROL 2.5MG INH SOL UD 3ML (DUONEB) NEB SCH ×2 (02:32→07:55)
[2022-12-15] MEDS: HYDROCORTISONE 100MG/2ML VIAL IV SCH ×2 (03:06→08:35)
[2022-12-15 05:31] LABS: BASO % 0.1 % (0.0-1.0); HEMATOCRIT 21.8 % (42.0-52.0); HEMOGLOBIN 7.4 g/dl (13.5-17.5); LYMPH # 0.1 10^3/uL (1.5-5.0); LYMPH % 0.4 % (24.0-44.0); MEAN CORPUSCULAR HEMOGLOBIN 28.1 pg (27.0-33.0); MEAN CORPUSCULAR HGB CONC 33.9 g/dl (32.0-36.5); MEAN CORPUSCULAR VOLUME 82.9 fl (80.0-96.0); MONO # 0.6 10^3/uL (0.0-0.8); MONO % 2.8 % (2.0-8.0); NEUTROPHILS # 21.2 10^3/uL (1.5-8.5); NEUTROPHILS % 95.5 % (36.0-66.0); RED BLOOD COUNT 2.63 10^6/uL (4.30-6.10); WHITE BLOOD COUNT 22.2 10^3/uL (4.0-10.0)
[2022-12-15 05:34] LABS: PLATELET COUNT, AUTOMATED 31 10^3/uL (150-450)
[2022-12-15] MEDS: fentaNYL 100 MCG/2 ML INJECTION IV PRN ×2 (05:51→07:44)
[2022-12-15 06:24] LABS: ALBUMIN 1.7 G/DL (3.2-5.2); BILIRUBIN,TOTAL 1.1 MG/DL (0.3-1.2); CALCIUM LEVEL 5.6 MG/DL (8.3-10.6); CREATININE FOR GFR 3.44 MG/DL (0.70-1.30); GLOMERULAR FILTRATION RATE 18.5 (>42); MAGNESIUM LEVEL 1.8 MG/DL (1.8-2.4); TOTAL PROTEIN 3.9 G/DL (5.7-8.2)
[2022-12-15] MEDS ORDERED: HumuLIN R (REGULAR) INSULIN (NovoLIN R) **100U/ML** PER UNIT IV STA (07:32)
[2022-12-15] MEDS ORDERED: DEXTROSE 50% 50ML SYRINGE IV STA (07:32)
[2022-12-15 07:48] LABS: VANCOMYCIN RANDOM 29.5 UG/ML
[2022-12-15] MEDS ORDERED: FUROSEMIDE 40MG/4ML VIAL IV ONE (08:00)
[2022-12-15] MEDS ORDERED: fentaNYL CITRATE/NaCl 1,000 MCG in IV 1 EA IV SCH ×2 (08:00→12:25)
[2022-12-15] MEDS ORDERED: D5W MINI IV ONE (08:00)
[2022-12-15] MEDS ORDERED: CALCIUM CHLORIDE IV ONE (08:00)
[2022-12-15] MEDS: PANTOPRAZOLE 40MG VIAL IV SCH (08:35)
[2022-12-15] MEDS: NYSTATIN 100,000 UNITS/GM TOPICAL PWD 15GM TOP SCH (08:38)
[2022-12-15] MEDS ORDERED: CALCIUM CHLORIDE 10% 1 GM in D5W 100 ML IV ONE (10:00)
[2022-12-15] MEDS ORDERED: SCOPOLAMINE 1MG TRANSDERMAL PATCH TOP PRN (12:15)
[2022-12-15] MEDS ORDERED: LORazepam 2 MG/ML 1ML VIAL IV PRN (12:15)
[2022-12-15] MEDS ORDERED: MIDAZOLAM 100MG/100ML-0.9%NACL 100 MG in IV 1 EA IV SCH (12:25)
== END 2022-12-15 14:32 | disposition expired | DRG 208 ==
LOC: M ED 14:28 → M ED INP 17:23 → M PCU 17:23 → M ICU 12-12 07:30
PROVIDERS: ADMIT Internal Medicine; ATTEND Internal Medicine
PROC: B246ZZZ Ultrasonography of Right and Left Heart (ICD-10-PCS; 2022-11-28)
PROC: 5A1945Z Respiratory Ventilation, 24-96 Consecutive Hours (ICD-10-PCS; principal; 2022-12-12)
PROC: 06HM33Z Insertion of Infusion Device into Right Femoral Vein, Percutaneous Approach (ICD-10-PCS; 2022-12-12)
PROC: 0BH17EZ Insertion of Endotracheal Airway into Trachea, Via Natural or Artificial Opening (ICD-10-PCS; 2022-12-12)
DX: J96.21 Acute and chronic respiratory failure with hypoxia (principal); A41.9 Sepsis, unspecified organism; R65.21 Severe sepsis with septic shock; K72.00 Acute and subacute hepatic failure without coma; I50.33 Acute on chronic diastolic (congestive) heart failure; J18.9 Pneumonia, unspecified organism; C34.12 Malignant neoplasm of upper lobe, left bronchus or lung; J44.1 Chronic obstructive pulmonary disease with (acute) exacerbation; E87.3 Alkalosis; J44.0 Chronic obstructive pulmonary disease with (acute) lower respiratory infection; C78.7 Secondary malignant neoplasm of liver and intrahepatic bile duct; N17.9 Acute kidney failure, unspecified; I47.20 Ventricular tachycardia, unspecified; I24.8 Other forms of acute ischemic heart disease; E87.29 Other acidosis; D62 Acute posthemorrhagic anemia; J96.22 Acute and chronic respiratory failure with hypercapnia; Z66 Do not resuscitate; Z99.81 Dependence on supplemental oxygen; I48.0 Paroxysmal atrial fibrillation; Z79.01 Long term (current) use of anticoagulants; E78.5 Hyperlipidemia, unspecified; K21.9 Gastro-esophageal reflux disease without esophagitis; Z87.891 Personal history of nicotine dependence; I73.9 Peripheral vascular disease, unspecified; Z79.82 Long term (current) use of aspirin; Z79.899 Other long term (current) drug therapy; Z88.6 Allergy status to analgesic agent; Z20.822 Contact with and (suspected) exposure to COVID-19; L89.312 Pressure ulcer of right buttock, stage 2; L89.322 Pressure ulcer of left buttock, stage 2; R57.1 Hypovolemic shock; E11.51 Type 2 diabetes mellitus with diabetic peripheral angiopathy without gangrene; I87.2 Venous insufficiency (chronic) (peripheral); K76.89 Other specified diseases of liver; J20.9 Acute bronchitis, unspecified; I27.20 Pulmonary hypertension, unspecified; I11.0 Hypertensive heart disease with heart failure; E87.5 Hyperkalemia; E11.65 Type 2 diabetes mellitus with hyperglycemia; E83.51 Hypocalcemia

== ENCOUNTER 2022-12-11 13:00 | Outpatient (RCR) | payer MEDICARE ==
[~2022-12-11 13:00] MED LIST changes: +ERGO500029 PO; +ISOVUE-370 76% 100ML VIAL As Ordered ONE; +LEVA1.2519 INH
[2022-12-12] MEDS ORDERED: PHENYLEPHRINE HCL INJ 50 MG in D5W 495 ML IV SCH (19:25)
== END 2022-12-12 ==
LOC: M ONCR 13:00
PROVIDERS: ATTEND General Practice
DX: C34.12 Malignant neoplasm of upper lobe, left bronchus or lung (principal)